=== PATIENT | male | born 1955 | race African-American/Black ===

== ENCOUNTER 2016-10-25 19:35 | Inpatient (IN) | payer MEDICAID, OTHER ==
[~2016-10-25] VITALS: Ht 180.3 cm; Wt 99.8 kg
[2016-10-25 19:46] VITALS: BP 239/179
[2016-10-25] MEDS ORDERED: LORazepam Inj 2mg/ml 1ml ONE (19:55)
[2016-10-25 20:03] VITALS: BP 160/91
[2016-10-25] MEDS ORDERED: LORazepam Inj 2mg/ml 1ml IV ONE (20:15)
[2016-10-25 20:20] LABS: EOSINOPHILS % (AUTO) 3.1 % (0.0-3.0); LYMPHOCYTES % (AUTO) 15.4 % (20.0-45.0); MEAN CORPUSCULAR HEMOGLOBIN 35.4 PG (27.0-31.0); MEAN CORPUSCULAR HGB CONC 32.2 G/DL (32.0-36.0); MEAN CORPUSCULAR VOLUME 110 FL (80-99); MEAN PLATELET VOLUME 9.7 FL (6.5-10.1); MONOCYTES % (AUTO) 5.8 % (1.0-10.0); NEUTROPHILS % (AUTO) 74.9 % (45.0-75.0); PLATELET COUNT 130 K/UL (150-450); RED BLOOD COUNT 3.12 M/UL (4.70-6.10); RED CELL DISTRIBUTION WIDTH 11.9 % (11.6-14.8); WHITE BLOOD COUNT 9.1 K/UL (4.8-10.8)
[2016-10-25] MEDS ORDERED: levETIRAcetam 500mg vial IV ONE (20:30)
[2016-10-25 20:39] LABS: TROPONIN I < 0.30 ng/mL (<=0.30)
[2016-10-25 20:44] LABS: ALANINE AMINOTRANSFERASE 19 U/L (3-41); ALBUMIN/GLOBULIN RATIO 0.8 (1.0-2.7); ANION GAP 14 (5-15); ASPARTATE AMINO TRANSFERASE 50 U/L (5-40); CALCIUM 8.2 mg/dL (8.6-10.2); CARBON DIOXIDE 26 mEQ/L (20-30); CHLORIDE 100 mEQ/L (98-107); CREATININE 0.8 mg/dL (0.7-1.2); GLOMERULAR FILTRATION RATE > 60 mL/min (>60); HEMOLYSIS 42; POTASSIUM 3.9 mEQ/L (3.4-4.9); SODIUM 140 mEQ/L (135-145); TOTAL PROTEIN 5.8 g/dL (6.6-8.7)
[2016-10-25 20:45] VITALS: BP 143/87
[2016-10-25 20:49] LABS: CKMB 1.6 ng/mL (< 6.7)
[2016-10-25] MEDS ORDERED: levETIRAcetam 1,000 MG in D5W 110 ML IVPB SCH (21:00)
[2016-10-25 21:34] VITALS: BP 122/82
[2016-10-25 23:52] VITALS: BP 121/74
[2016-10-26] VITALS (7 sets, daily range): BP systolic 99–126; BP diastolic 64–78
[2016-10-26] MEDS ORDERED: CYCLOBENZAPRINE10 MG ORAL (05:42)
[2016-10-26] MEDS ORDERED: PRO-AMATINE5 M1 GT (05:42)
[2016-10-26] MEDS ORDERED: LAMICTAL150 MG ORAL (05:42)
[2016-10-26] MEDS ORDERED: THIAMINE H100 MG/1 M IJ (05:42)
[2016-10-26] MEDS ORDERED: COUMADIN5 MG ORAL (05:42)
[2016-10-26] MEDS ORDERED: LACTULOSE20 GM/301 GT (05:42)
[2016-10-26] MEDS ORDERED: FOLIC ACID1 MG ORAL (05:42)
[2016-10-26] MEDS ORDERED: TYLENOL650 MG/20. ORAL (05:42)
[2016-10-26] MEDS ORDERED: KEPPRA1000 MG ORAL (05:42)
[2016-10-26] MEDS ORDERED: MULTIVITAMINS1 EAC8 ORAL (05:42)
[2016-10-26] MEDS ORDERED: VALIUM10 MG ORAL (05:42)
[2016-10-26] MEDS ORDERED: TEGRETOL200 MG PO (05:42)
[2016-10-26] MEDS ORDERED: Acetaminophen 650mg/20.3ml ORAL PRN (06:00)
[2016-10-26 08:37] LABS: INR 1.6 (0.9-1.1); PROTHROMBIN TIME 16.1 SEC (9.30-11.50)
[2016-10-26 08:57] LABS: ANION GAP 14 (5-15); CALCIUM 8.6 mg/dL (8.6-10.2); CARBON DIOXIDE 27 mEQ/L (20-30); CHLORIDE 97 mEQ/L (98-107); CREATININE 0.7 mg/dL (0.7-1.2); GLOMERULAR FILTRATION RATE > 60 mL/min (>60); HEMOLYSIS 2; POTASSIUM 3.2 mEQ/L (3.4-4.9); SODIUM 138 mEQ/L (135-145)
[2016-10-26] MEDS ORDERED: LaMICtal 150mg tab ORAL SCH (09:00)
[2016-10-26] MEDS ORDERED: levETIRAcetam 500mg/5ml Liquid GT SCH (09:00)
[2016-10-26] MEDS ORDERED: Cyclobenzaprine 10mg Tab ORAL SCH (09:00)
[2016-10-26] MEDS: Lactulose 20gm/30ml UDC GT SCH (09:37)
[2016-10-26] MEDS: Multivitamin 5ml Liquid GT SCH (09:37)
[2016-10-26] MEDS: Pantoprazole Inj IVP SCH (09:39)
[2016-10-26] MEDS: carBAMazepine 200mg tab GT SCH ×2 (09:40→18:34)
--- NOTE | 2016-10-26 10:38 | History & Physical ---
History and Physical History & Physicial 61 year old male with protracted hospital course. Care discussed with daughter in detail. Patient was admitted to [facility] with swelling and has DVT leg and arm He hhad ongoing seizures and persistent overall and difficult to control at [facility]; Patient had code blue and required intubation; He required airway protection. Family decided to place GT and trach he was in ICU for prolonged period of time and failed to improve. Daughter notes the seizure were eventually controlled Patient was noted to have PMH trach GT encephalopathy DVT seizures throat cancer and underwent chemo and XRT (concern for recurrence) MEDS/ALLERGIES reviewed SOCIAL at [facility]; prior at [facility] has family support was heavy smoker and drinker cocaine user PHYSICAL EXAM WDWN ill appearing clear breath sounds bilaterally without rhonchi or wheeze [id number] without MRG NABS nontender no HSM no CC anasarca nonfocal reduced LOC Laboratory Tests Test 10/25/16 19:50 10/26/16 07:00 White Blood Count 9.1 K/UL (4.8-10.8) Pending Red Blood Count 3.12 M/UL (4.70-6.10) L Pending Hemoglobin 11.0 G/DL (14.2-18.0) L Pending Hematocrit 34.3 % (42.0-52.0) L Pending Mean Corpuscular Volume 110 FL (80-99) H Pending Mean Corpuscular Hemoglobin 35.4 PG (27.0-31.0) H Pending Mean Corpuscular Hemoglobin Concent 32.2 G/DL (32.0-36.0) Pending Red Cell Distribution Width 11.9 % (11.6-14.8) Pending Platelet Count 130 K/UL (150-450) L Pending Mean Platelet Volume 9.7 FL (6.5-10.1) Pending Neutrophils (%) (Auto) 74.9 % (45.0-75.0) Pending Lymphocytes (%) (Auto) 15.4 % (20.0-45.0) L Pending Monocytes (%) (Auto) 5.8 % (1.0-10.0) Pending Eosinophils (%) (Auto) 3.1 % (0.0-3.0) H Pending Basophils (%) (Auto) 1.0 % (0.0-2.0) Pending Sodium Level 140 mEQ/L (135-145) 138 mEQ/L (135-145) Potassium Level 3.9 mEQ/L (3.4-4.9) 3.2 mEQ/L (3.4-4.9) L Chloride Level 100 mEQ/L (98-107) 97 mEQ/L (98-107) L Carbon Dioxide Level 26 mEQ/L (20-30) 27 mEQ/L (20-30) Anion Gap 14 (5-15) 14 (5-15) Blood Urea Nitrogen 5 mg/dL (7-23) L 5 mg/dL (7-23) L Creatinine 0.8 mg/dL (0.7-1.2) 0.7 mg/dL (0.7-1.2) Estimat Glomerular Filtration Rate > 60 mL/min (>60) > 60 mL/min (>60) Glucose Level 88 mg/dL (74-106) 75 mg/dL (74-106) Calcium Level 8.2 mg/dL (8.6-10.2) L 8.6 mg/dL (8.6-10.2) Total Bilirubin 0.9 mg/dL (0.0-1.2) Aspartate Amino Transf (AST/SGOT) 50 U/L (5-40) H Alanine Aminotransferase (ALT/SGPT) 19 U/L (3-41) Alkaline Phosphatase 103 U/L (40-129) Total Creatine Kinase 83 U/L (38-174) Creatine Kinase MB 1.6 ng/mL (< 6.7) Creatine Kinase MB Relative Index 1.9 Troponin I < 0.30 ng/mL (<=0.30) Total Protein 5.8 g/dL (6.6-8.7) L Albumin 2.6 g/dL (3.5-5.2) L Globulin 3.2 g/dL Albumin/Globulin Ratio 0.8 (1.0-2.7) L Prothrombin Time 16.1 SEC (9.30-11.50) H Prothromb Time International Ratio 1.6 (0.9-1.1) H IMPRESSION seizures ALOC DVT history of throat cancer PLAN Neuro EEG coumadin follow up labs impression, plan, and exam edited and reviewed in detail care discussed with EUSEBIO CULVER Oct 26, 2016 10:38
[2016-10-26 10:51] LABS: BASOPHILS % (AUTO) 0.8 % (0.0-2.0); EOSINOPHILS % (AUTO) 3.7 % (0.0-3.0); LYMPHOCYTES % (AUTO) 18.1 % (20.0-45.0); MEAN CORPUSCULAR HEMOGLOBIN 36.3 PG (27.0-31.0); MEAN CORPUSCULAR HGB CONC 33.3 G/DL (32.0-36.0); MEAN CORPUSCULAR VOLUME 109 FL (80-99); MEAN PLATELET VOLUME 9.9 FL (6.5-10.1); NEUTROPHILS % (AUTO) 70.5 % (45.0-75.0); PLATELET COUNT 129 K/UL (150-450); RED BLOOD COUNT 2.94 M/UL (4.70-6.10); RED CELL DISTRIBUTION WIDTH 11.7 % (11.6-14.8); WHITE BLOOD COUNT 8.6 K/UL (4.8-10.8)
--- NOTE | 2016-10-26 11:58 | Diagnostic Imaging Report ---
Indication: CP, shortness of breath Technique: One view of the chest Comparison: 08/09/2010 Findings: Inspiration is suboptimal. No definite acute infiltrates, effusions, congestion. The heart size is borderline enlarged. Tracheostomy now present. Previously demonstrated PICC is no longer evident Impression: No definite acute process. Findings as noted
[2016-10-26] MEDS ORDERED: KCl 10% 20 mEq/15ml liquid NG ONE (12:30)
[2016-10-26] MEDS ORDERED: Warfarin Sodium 5mg ORAL SCH (17:00)
[2016-10-26] MEDS ORDERED: Warfarin Sodium 7.5mg ORAL ONE (17:00)
--- NOTE | 2016-10-26 18:10 | Neurology Progress Note ---
Objective Physical Exam Last Vital Signs Date Time Temp Pulse Resp B/P Pulse Ox O2 Delivery O2 Flow Rate FiO2 10/26/16 16:50 95 18 50 10/26/16 15:59 97.7 99/66 100 Mechanical Ventilator Laboratory Tests Test 10/25/16 19:50 10/26/16 07:00 10/26/16 12:07 White Blood Count 9.1 K/UL (4.8-10.8) 8.6 K/UL (4.8-10.8) Red Blood Count 3.12 M/UL (4.70-6.10) L 2.94 M/UL (4.70-6.10) L Hemoglobin 11.0 G/DL (14.2-18.0) L 10.7 G/DL (14.2-18.0) L Hematocrit 34.3 % (42.0-52.0) L 32.0 % (42.0-52.0) L Mean Corpuscular Volume 110 FL (80-99) H 109 FL (80-99) H Mean Corpuscular Hemoglobin 35.4 PG (27.0-31.0) H 36.3 PG (27.0-31.0) H Mean Corpuscular Hemoglobin Concent 32.2 G/DL (32.0-36.0) 33.3 G/DL (32.0-36.0) Red Cell Distribution Width 11.9 % (11.6-14.8) 11.7 % (11.6-14.8) Platelet Count 130 K/UL (150-450) L 129 K/UL (150-450) L Mean Platelet Volume 9.7 FL (6.5-10.1) 9.9 FL (6.5-10.1) Neutrophils (%) (Auto) 74.9 % (45.0-75.0) 70.5 % (45.0-75.0) Lymphocytes (%) (Auto) 15.4 % (20.0-45.0) L 18.1 % (20.0-45.0) L Monocytes (%) (Auto) 5.8 % (1.0-10.0) 7.0 % (1.0-10.0) Eosinophils (%) (Auto) 3.1 % (0.0-3.0) H 3.7 % (0.0-3.0) H Basophils (%) (Auto) 1.0 % (0.0-2.0) 0.8 % (0.0-2.0) Sodium Level 140 mEQ/L (135-145) 138 mEQ/L (135-145) Potassium Level 3.9 mEQ/L (3.4-4.9) 3.2 mEQ/L (3.4-4.9) L Chloride Level 100 mEQ/L (98-107) 97 mEQ/L (98-107) L Carbon Dioxide Level 26 mEQ/L (20-30) 27 mEQ/L (20-30) Anion Gap 14 (5-15) 14 (5-15) Blood Urea Nitrogen 5 mg/dL (7-23) L 5 mg/dL (7-23) L Creatinine 0.8 mg/dL (0.7-1.2) 0.7 mg/dL (0.7-1.2) Estimat Glomerular Filtration Rate > 60 mL/min (>60) > 60 mL/min (>60) Glucose Level 88 mg/dL (74-106) 75 mg/dL (74-106) Calcium Level 8.2 mg/dL (8.6-10.2) L 8.6 mg/dL (8.6-10.2) Total Bilirubin 0.9 mg/dL (0.0-1.2) Aspartate Amino Transf (AST/SGOT) 50 U/L (5-40) H Alanine Aminotransferase (ALT/SGPT) 19 U/L (3-41) Alkaline Phosphatase 103 U/L (40-129) Total Creatine Kinase 83 U/L (38-174) Creatine Kinase MB 1.6 ng/mL (< 6.7) Creatine Kinase MB Relative Index 1.9 Troponin I < 0.30 ng/mL (<=0.30) Total Protein 5.8 g/dL (6.6-8.7) L Albumin 2.6 g/dL (3.5-5.2) L Globulin 3.2 g/dL Albumin/Globulin Ratio 0.8 (1.0-2.7) L Prothrombin Time 16.1 SEC (9.30-11.50) H Prothromb Time International Ratio 1.6 (0.9-1.1) H Carbamazepine (Tegretol) Level 6.0 ug/mL (4.0-12.0) Levetiracetam (Keppra) Level Pending Impression/Recommendations Problems: (1) 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
[2016-10-26] MEDS: LaMICtal 150mg tab ORAL SCH (18:34)
[2016-10-26] MEDS: levETIRAcetam 500mg/5ml Liquid GT SCH (18:36)
--- NOTE | 2016-10-26 22:15 | Wound Care Consultation ---
Wound Assessment Wound Assessment #1: Wound Present on Admission: Yes New Wound: No Status Change of Wound: No Wound Location Body Site Modif: left Wound Location Body Site: buttocks Wound Type: pressure ulcer Martin Test: Does not Martin Pressure Ulcer Stage: III Wound Thickness: Full Thickness Wound Length: 4.5 Wound Width: 2.5 Wound Depth: utd Percent of Wound Lebam/Red: 100 Wound Drainage Description: Serosanguineous Wound Drainage Amount: Scant Wound Drainage Odor: None/Absent Tissue Surrounding Wound: Erythemic Wound General Appearance: Reddened Wound Assessment #2: Wound Number: #2 Wound Present on Admission: Yes New Wound: No Status Change of Wound: No Wound Location Body Site Modif: left, upper Wound Location Body Site: arm Wound Type: scab Martin Test: Does not Martin Wound Thickness: Full Thickness Wound Length: 2.0 Wound Width: 2.0 Wound Depth: utd Wound Drainage Amount: None Wound Drainage Odor: None/Absent Tissue Surrounding Wound: Intact Wound General Appearance: Asymptomatic Wound Comment #1 Left buttock stage III pressure ulcer #2 Left upper arm dry scab Recommendation -Keep clean and dry -Turn and reposition -Left buttock pressure ulcer Cleanse with saline pat dry apply Triad cream cover with bordered gauze daily and PRN soiled/dislodged -Optimize nutrition -Low air loss overlay mattress -Offload both heels -Assess and f/u accordingly for any changes KELECHI IGNACIO RN Oct 26, 2016 22:15
[2016-10-27] VITALS: BP 99/47
[2016-10-27] MEDS: LORazepam Inj 2mg/ml 1ml IV PRN (00:46)
--- NOTE | 2016-10-27 01:28 | Consultation ---
DATE OF CONSULTATION: 10/26/2016 NEUROLOGICAL CONSULTATION: REQUESTING PHYSICIAN: Gerber Shelton M.D. HISTORY OF PRESENT ILLNESS: The patient is a 61-year-old man seen in neurological consultation to evaluate the status epilepticus. The patient unable to provide with a history. This was compiled from medical records. Now that the patient who was [facility] with recuperating from event ____ while he was in [facility]. Apparently, the patient had a DVT of his upper and lower extremity. He developed Code Blue, which required intubation for airway protection. He developed ongoing seizure activity, which were not controlled well. After prolonged treatment while in the ICU setting, there was no signs of improvement, but according to the family, seizures were eventually controlled. The patient was placed on gastric tube, tracheostomy the nursing facility post ablation. The patient was admitted for exacerbation of seizure activity. PAST MEDICAL HISTORY: The patient has a history of throat cancer, for which he had radiation therapy and chemotherapy with for recurrence of tumor. History of seizure disorder and history of DVT. MEDICATIONS: The patient's current treatment included carbamazepine 200 mg t.i.d., Flexeril 5 mg t.i.d., Valium 10 mg t.i.d. p.r.n., folate, lactulose, Lamictal 150 mg daily, Keppra 1000 mg daily, midodrine, multivitamin, thiamine 100 mg daily, warfarin 5 mg daily, and Tylenol as needed. ALLERGIES: Codeine. SOCIAL HISTORY: The patient had been a heavy smoker and has a history of substance abuse including alcohol and cocaine. FAMILY HISTORY: Unavailable. REVIEW OF SYMPTOMS: Unable to obtain due to the patient's status. PHYSICAL EXAMINATION: GENERAL: This is a well-developed and well-nourished man with a tracheostomy, G-tube in place, and IV in place. The patient noted to have intermittent brief jerks involving predominantly left upper extremity. VITAL SIGNS: Blood pressure 99/66, temperature 97.7 degrees, and pulse oximetry 100% on mechanical ventilator. HEENT: Head normocephalic. There is no evidence of trauma. Eyes, ears, and throat are clear. NECK: Supple. No meningeal signs. MUSCULOSKELETAL: No deformities. There is a 2+ puffiness in the both hands and feet. PERIPHERAL PULSES: A 1+ symmetric. MENTAL STATUS: No response to verbal stimulation on sternal rub. Appears withdrawing with the right arm. There is slight diffuse rigidity in all extremities. Deep reflexes depressed bilaterally. Plantar response is mute. SENSORY EXAMINATION: No response to pin stimulation. LABORATORY AND DIAGNOSTIC DATA: Lab work on admission include carbamazepine level of 6.0. Chemistry panel unremarkable except calcium 8.2. AST 50. Normal troponin. Coagulation panel with INR 1.3. CBC study with hemoglobin 11.2 and hematocrit 34.3. Imaging studies included a chest x-ray revealing no definitive acute process, previously demonstrated PICC line was no longer evident. IMPRESSION: 1. Status post full arrest with anoxic encephalopathy, now presenting with intractable status epilepticus. 2. History of substance abuse. 3. Respiratory insufficiency. 4. History of throat cancer status post chemotherapy. 5. Deep venous thrombosis. RECOMMENDATION: 1. Stat CT of the brain without contrast if hemodynamically stable. 2. Get an EEG. 3. Adjust treatment to maximise Lamictal 200 mg b.i.d., Keppra 1500 mg b.i.d., maintain on current dose of carbamazepine, and Ativan 1 mg q.1 hour p.r.n. for breakthrough seizure activity. We will follow with you. Thank you for allowing me to see this interesting patient in neurological consultation. Christopher Gayle M.D. DR: Gita JOB#: [id number] CC:
[2016-10-27 04:00] VITALS: BP 118/85
[2016-10-27 06:35] LABS: INR 1.7 (0.9-1.1); PROTHROMBIN TIME 17.3 SEC (9.30-11.50)
[2016-10-27 08:00] VITALS: BP 115/68
--- NOTE | 2016-10-27 08:22 | Emergency Room Report ---
History of Present Illness General Chief Complaint: Seizure Source: Family Member, Medical Record Present Illness HPI Patient presents from nursing facility with complaints of seizure activity Patient has had a fairly extended complicated hospital stay recently at [facility] patient was recently transferred to the nursing facility Family and provides significant input along with medical history from the medical records Patient previously had alcohol disease Possible seizure activity secondary to that Patient also had developed right-sided DVTs, and during the hospital stay had respiratory failure which required tracheostomy Patient is on given medications including Keppra for seizures Patient had been seizure free for the last several days Today was noted to have possible shaking and seizure activity And paramedics were summoned for further care Allergies: Coded Allergies: CODEINE (Verified Allergy, Unknown, 10/25/16) Patient History Limited by: medical condition Past Medical History: see triage record Pertinent Family History: unable to obtain Reviewed Nursing Documentation: PMH: Agreed, PSxH: Agreed Nursing Documentation-PMH Past Medical History: No History, Except For Hx Cardiac Problems: Yes Hx Hypertension: Yes Hx Cancer: Yes Hx Gastrointestinal Problems: No Hx Neurological Problems: Yes Hx Seizures: Yes Review of Systems All Other Systems: limited - Other than the ones mentioned in the history of present illness all others are reviewed however they do stay limited due to the patient's mental status Physical Exam Vital Signs Date Time Temp Pulse Resp B/P Pulse Ox O2 Delivery O2 Flow Rate FiO2 10/25/16 19:36 100 16 239/179 99 Mechanical Ventilator 10/25/16 19:46 60 10/25/16 19:46 99.1 Sp02 EP Interpretation: reviewed, normal General Appearance: other - Patient shows evidence of what appears to be possible focal seizure, twitching of the right side of the facial area Head: normocephalic, atraumatic Eyes: bilateral eye PERRL ENT: no angioedema Neck: supple, thyroid normal, other - Tracheostomy in place no stridor or leaking Respiratory: lungs clear, normal breath sounds Cardiovascular #1: regular rate, rhythm Gastrointestinal: soft, no mass - Feeding tube in place Musculoskeletal: other - Patient is bedbound chronically debilitated does not follow commands, Neurologic: other - Significantly decreased GCS upon arrival patient also appears to be having a focal seizure, and provided with Ativan, therefore GCS continues to be depressed as well , Skin: no rash Lymphatic: no adenopathy Procedures Critical Care Time Critical Care Time 40 minutes for initial critical presentation requiring acute intervention Intractable seizures requiring multiple neurological evaluations Extended discussion with family Not including any procedural time Medical Decision Making Diagnostic Impression: Primary Impression: Epileptic seizure, generalized ER Course Multiple differentials considered including but not limited to breakthrough seizure, intracranial pathology, neurological or surgical infectious pathology Patient's complex requiring blood work and imaging study Patient upon arrival required Ativan Was also initiated on IV Keppra Patient's seizures appear to be well controlled with this acute intervention Patient received further hydration and admitted for further care, Labs Test 10/25/16 19:50 10/26/16 07:00 10/26/16 12:07 10/27/16 05:15 White Blood Count 9.1 K/UL (4.8-10.8) 8.6 K/UL (4.8-10.8) Red Blood Count 3.12 M/UL (4.70-6.10) 2.94 M/UL (4.70-6.10) Hemoglobin 11.0 G/DL (14.2-18.0) 10.7 G/DL (14.2-18.0) Hematocrit 34.3 % (42.0-52.0) 32.0 % (42.0-52.0) Mean Corpuscular Volume 110 FL (80-99) 109 FL (80-99) Mean Corpuscular Hemoglobin 35.4 PG (27.0-31.0) 36.3 PG (27.0-31.0) Mean Corpuscular Hemoglobin Concent 32.2 G/DL (32.0-36.0) 33.3 G/DL (32.0-36.0) Red Cell Distribution Width 11.9 % (11.6-14.8) 11.7 % (11.6-14.8) Platelet Count 130 K/UL (150-450) 129 K/UL (150-450) Mean Platelet Volume 9.7 FL (6.5-10.1) 9.9 FL (6.5-10.1) Neutrophils (%) (Auto) 74.9 % (45.0-75.0) 70.5 % (45.0-75.0) Lymphocytes (%) (Auto) 15.4 % (20.0-45.0) 18.1 % (20.0-45.0) Monocytes (%) (Auto) 5.8 % (1.0-10.0) 7.0 % (1.0-10.0) Eosinophils (%) (Auto) 3.1 % (0.0-3.0) 3.7 % (0.0-3.0) Basophils (%) (Auto) 1.0 % (0.0-2.0) 0.8 % (0.0-2.0) Sodium Level 140 mEQ/L (135-145) 138 mEQ/L (135-145) Potassium Level 3.9 mEQ/L (3.4-4.9) 3.2 mEQ/L (3.4-4.9) Chloride Level 100 mEQ/L (98-107) 97 mEQ/L (98-107) Carbon Dioxide Level 26 mEQ/L (20-30) 27 mEQ/L (20-30) Anion Gap 14 (5-15) 14 (5-15) Blood Urea Nitrogen 5 mg/dL (7-23) 5 mg/dL (7-23) Creatinine 0.8 mg/dL (0.7-1.2) 0.7 mg/dL (0.7-1.2) Estimat Glomerular Filtration Rate > 60 mL/min (>60) > 60 mL/min (>60) Glucose Level 88 mg/dL (74-106) 75 mg/dL (74-106) Calcium Level 8.2 mg/dL (8.6-10.2) 8.6 mg/dL (8.6-10.2) Total Bilirubin 0.9 mg/dL (0.0-1.2) Aspartate Amino Transf (AST/SGOT) 50 U/L (5-40) Alanine Aminotransferase (ALT/SGPT) 19 U/L (3-41) Alkaline Phosphatase 103 U/L (40-129) Total Creatine Kinase 83 U/L (38-174) Creatine Kinase MB 1.6 ng/mL (< 6.7) Creatine Kinase MB Relative Index 1.9 Troponin I < 0.30 ng/mL (<=0.30) Total Protein 5.8 g/dL (6.6-8.7) Albumin 2.6 g/dL (3.5-5.2) Globulin 3.2 g/dL Albumin/Globulin Ratio 0.8 (1.0-2.7) Prothrombin Time 16.1 SEC (9.30-11.50) 17.3 SEC (9.30-11.50) Prothromb Time International Ratio 1.6 (0.9-1.1) 1.7 (0.9-1.1) Carbamazepine (Tegretol) Level 6.0 ug/mL (4.0-12.0) Rhythm Strip Diag. Results EP Interpretation: yes Rate: 88 Rhythm: NSR, no PVC's, no ectopy Chest X-Ray Diagnostic Results EP Interpretation: Yes Findings: no consolidation, no effusion, no pneumothorax, other - cardiomegaly Number of Views: 1 Last Vital Signs Date Time Temp Pulse Resp B/P Pulse Ox O2 Delivery O2 Flow Rate FiO2 10/27/16 07:14 71 16 30 10/27/16 04:00 98.1 118/85 99 Mechanical Ventilator Status: improved Disposition: ADMITTED INPATIENT Condition: Serious Referrals: EUSEBIO CRESPO (PCP) MARJORIE MENEZES D.O. Oct 27, 2016 08:22
[2016-10-27] MEDS: Lactulose 20gm/30ml UDC GT SCH (08:50)
[2016-10-27] MEDS: carBAMazepine 200mg tab GT SCH ×2 (08:51→18:07)
[2016-10-27] MEDS: Multivitamin 5ml Liquid GT SCH (08:51)
[2016-10-27] MEDS: levETIRAcetam 500mg/5ml Liquid GT SCH ×2 (08:51→18:08)
[2016-10-27] MEDS: LaMICtal 150mg tab ORAL SCH ×2 (08:51→18:07)
[2016-10-27] MEDS: Pantoprazole Inj IVP SCH (08:52)
--- NOTE | 2016-10-27 09:34 | Pulmonology Progress Note ---
Assessment/Plan Assessment/Plan IMPRESSION seizures ALOC DVT history of throat cancer PLAN Neuro EEG coumadin adjustment per pharmacy monitor INR and labs follow up labs Head Ct none acute impression, plan, and exam edited and reviewed in detail care discussed with RN Subjective Allergies: Coded Allergies: CODEINE (Verified Allergy, Unknown, 10/25/16) Subjective care noted and reviewed neuro appreciated Objective Last 24 Hour Vital Signs Date Time Temp Pulse Resp B/P Pulse Ox O2 Delivery O2 Flow Rate FiO2 10/27/16 09:15 73 16 30 10/27/16 07:14 71 16 30 10/27/16 05:02 82 16 40 10/27/16 04:00 98.1 78 16 118/85 99 Mechanical Ventilator 40 10/27/16 04:00 40 10/27/16 04:00 68 10/27/16 03:26 65 16 40 10/27/16 01:29 78 21 40 10/27/16 00:00 76 10/27/16 00:00 97.9 74 16 99/47 99 Mechanical Ventilator 40 10/26/16 22:38 82 16 40 10/26/16 21:17 75 20 40 10/26/16 20:00 69 10/26/16 20:00 97.9 75 20 109/64 100 Mechanical Ventilator 50 10/26/16 19:21 74 17 40 10/26/16 16:50 95 18 50 10/26/16 16:00 80 10/26/16 15:59 97.7 74 20 99/66 100 Mechanical Ventilator 50 10/26/16 14:44 89 16 50 10/26/16 13:00 99 20 50 10/26/16 12:00 69 10/26/16 12:00 98.1 70 16 100/65 100 Mechanical Ventilator 50 10/26/16 10:40 95 18 50 10/26/16 10:38 98.4 Intake and Output 10/26/16 10/27/16 19:00 07:00 Intake Total 260 ml 775 ml Output Total 1300 ml 400 ml Balance -1040 ml 375 ml Intake Free Water 100 ml 200 ml Tube Feeding 160 ml 575 ml Output Urine Total 1300 ml 400 ml # Bowel Movements 2 Objective WDWN ill appearing clear breath sounds bilaterally without rhonchi or wheeze [id number] without MRG NABS nontender no HSM no CC anasarca nonfocal reduced LOC Microbiology Date/Time Source Procedure Growth Status 3/17/17 03:30 Stool Clostridium difficile Toxin Assay - Final Complete 10/26/16 03:30 Sacral Abscess Gram Stain - Final Resulted 10/26/16 03:30 Wound Culture - Preliminary Strep Species, Alpha Hemolytic Resulted 10/25/16 23:24 Rectum VRE Culture - Final NO VANCOMYCIN RESISTANT ENTEROCOCCUS ... Complete Laboratory Tests 10/26/16 12:07: Levetiracetam (Keppra) Level [Pending] 10/27/16 05:15: Prothrombin Time 17.3H, Prothromb Time International Ratio 1.7H Current Medications Medications (Trade) Dose Ordered Sig/Romelia Route PRN Reason Start Time Stop Time Status Last Admin Dose Admin Acetaminophen (Tylenol) 650 mg Q6H PRN ORAL Prn Headache/Temp > 101 10/26/16 06:00 11/25/16 05:59 Carbamazepine (TEGretol) 200 mg BID GT 10/26/16 09:00 11/25/16 08:59 10/27/16 08:51 Dextrose (Dextrose 50%) STAT PRN IV Hypoglycemia 10/26/16 05:00 11/25/16 04:59 Folic Acid (Folate) 1 mg DAILY ORAL 10/26/16 09:00 11/25/16 08:59 10/27/16 08:51 Lactulose (Cephulac) 20 gm DAILY GT 10/26/16 09:00 11/25/16 08:59 10/27/16 08:50 Lamotrigine (LaMICtal) 150 mg BID ORAL 10/26/16 18:00 11/25/16 17:59 10/27/16 08:51 Levetiracetam (Keppra) 1,500 mg BID GT 10/26/16 18:00 11/25/16 17:59 10/27/16 08:51 Lorazepam (Ativan 2mg/ml 1ml) 1 mg Q1HR PRN IV For Seizures 10/26/16 07:00 11/02/16 06:59 10/27/16 00:46 Multivitamins (Multivitamin Hexavitamin) 5 ml DAILY GT 10/26/16 09:00 11/25/16 08:59 10/27/16 08:51 Pantoprazole (Protonix) 40 mg DAILY IVP 10/26/16 09:00 11/25/16 08:59 10/27/16 08:52 Warfarin Sodium (Coumadin per pharmacy) 1 ea DAILY PRN MISC Per rx protocol 10/26/16 11:15 11/25/16 11:14 EUSEBIO CRESPO Oct 27, 2016 09:34
[2016-10-27 12:00] VITALS: BP 120/78
[2016-10-27 16:00] VITALS: BP 121/88
--- NOTE | 2016-10-27 16:14 | Neurology Progress Note ---
Interim History Interim History ROS Limited/Unobtainable: Yes Complaints: unresponsive Events: no sz noted Review of Systems Neuro Review of Systems EEG with L PLEDS Objective Physical Exam Last Vital Signs Date Time Temp Pulse Resp B/P Pulse Ox O2 Delivery O2 Flow Rate FiO2 10/27/16 15:08 47 16 30 10/27/16 12:00 98.1 120/78 99 Mechanical Ventilator Laboratory Tests Test 10/27/16 05:15 Prothrombin Time 17.3 SEC (9.30-11.50) H Prothromb Time International Ratio 1.7 (0.9-1.1) H General: other - trach Head: other Neck: other Neurologic Exam Mental Status: other - on stimuly open eyes follows x1-2 commands Speech: other Language: other Cranial Nerve II: fundus normal Cranial Nerves III, IV, : PERRLA, EOMI, pupils Cranial Nerve V: masseters function normal Cranial Nerve VII: normal facial expressions Cranial Nerve VIII: no nystagmus Cranial Nerve IX: gag response, other - poor gag Cranial Nerve XII: no tongue atrophy/fasciculations Motor System: other - flaccid L side Sensory: other Coordination: other Deep Tendon Reflexes: 0 ankle (L), 0 ankle (R), 0 bicep (L), 0 bicep (R), 0 brachioradialis (L), 0 brachioradialis (R), 0 knee (L), 0 knee (R), 0 tricep (L) , 0 tricep (R) Impression/Recommendations Problems: (1) 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
[2016-10-27] MEDS: Warfarin Sodium 5mg ORAL SCH (18:03)
[2016-10-27 20:00] VITALS: BP 109/69
[2016-10-28] VITALS: BP 130/91
[2016-10-28 04:00] VITALS: BP 127/80
[2016-10-28] MEDS: LORazepam Inj 2mg/ml 1ml IV PRN (06:52)
[2016-10-28 08:00] VITALS: BP 124/78
[2016-10-28] MEDS: LaMICtal 150mg tab ORAL SCH ×2 (08:16→18:56)
[2016-10-28] MEDS: carBAMazepine 200mg tab GT SCH ×2 (08:16→18:56)
[2016-10-28] MEDS: Lactulose 20gm/30ml UDC GT SCH (08:16)
[2016-10-28] MEDS: Multivitamin 5ml Liquid GT SCH (08:16)
[2016-10-28] MEDS: Pantoprazole Inj IVP SCH (08:17)
[2016-10-28] MEDS: levETIRAcetam 500mg/5ml Liquid GT SCH ×2 (08:17→18:56)
--- NOTE | 2016-10-28 08:50 | Pulmonology Progress Note ---
Assessment/Plan Assessment/Plan IMPRESSION seizures ALOC DVT history of throat cancer PLAN Neuro EEG pending coumadin adjustment per pharmacy monitor INR and labs follow up labs Head Ct none acute further neuro input and dc planning impression, plan, and exam edited and reviewed in detail care discussed with RN Subjective ROS Limited/Unobtainable: Yes Allergies: Coded Allergies: CODEINE (Verified Allergy, Unknown, 10/25/16) Subjective care noted and reviewed neuro appreciated updated daughter Objective Last 24 Hour Vital Signs Date Time Temp Pulse Resp B/P Pulse Ox O2 Delivery O2 Flow Rate FiO2 10/28/16 07:08 81 18 30 10/28/16 04:48 89 24 30 10/28/16 04:00 97.9 83 19 127/80 100 Mechanical Ventilator 30 10/28/16 04:00 84 10/28/16 04:00 30 10/28/16 02:52 75 16 30 10/28/16 00:42 81 19 30 10/28/16 00:00 77 10/28/16 00:00 97.7 80 19 130/91 99 Mechanical Ventilator 30 10/28/16 00:00 40 10/27/16 22:53 74 19 30 10/27/16 21:07 83 20 30 10/27/16 20:00 97.3 69 16 109/69 100 Mechanical Ventilator 30 10/27/16 20:00 83 10/27/16 19:50 74 16 30 10/27/16 17:11 70 17 30 10/27/16 16:00 97.7 76 16 121/88 100 Mechanical Ventilator 30 10/27/16 16:00 79 10/27/16 15:08 67 16 30 10/27/16 12:56 69 16 30 10/27/16 12:00 98.1 71 16 120/78 99 Mechanical Ventilator 30 10/27/16 12:00 71 10/27/16 10:46 69 16 30 10/27/16 09:15 73 16 30 Intake and Output 10/27/16 10/28/16 19:00 07:00 Intake Total 865 ml 915 ml Output Total 675 ml Balance 865 ml 240 ml Intake Free Water 220 ml 200 ml Tube Feeding 585 ml 715 ml Other 60 ml Output Urine Total 675 ml Objective WDWN ill appearing clear breath sounds bilaterally without rhonchi or wheeze [id number] without MRG NABS nontender no HSM no CC anasarca nonfocal reduced LOC but seems near baseline based on family Microbiology Date/Time Source Procedure Growth Status 10/25/16 23:24 Nasal Nares MRSA Culture - Final NO METHICILLIN RESISTANT STAPH AUREUS... Complete 10/26/16 03:30 Stool Clostridium difficile Toxin Assay - Final Complete 10/26/16 03:30 Sacral Abscess Gram Stain - Final Resulted 10/26/16 03:30 Wound Culture - Preliminary Strep Species, Alpha Hemolytic Resulted 10/25/16 23:24 Rectum VRE Culture - Final NO VANCOMYCIN RESISTANT ENTEROCOCCUS ... Complete 10/25/16 19:50 Arm Right Blood Culture - Preliminary NO GROWTH AFTER 48 HOURS Resulted 10/25/16 19:45 Arm Left Blood Culture - Preliminary NO GROWTH AFTER 48 HOURS Resulted Current Medications Medications (Trade) Dose Ordered Sig/Romelia Route PRN Reason Start Time Stop Time Status Last Admin Dose Admin Acetaminophen (Tylenol) 650 mg Q6H PRN ORAL Prn Headache/Temp > 101 10/26/16 06:00 11/25/16 05:59 Carbamazepine (TEGretol) 200 mg BID GT 10/26/16 09:00 11/25/16 08:59 10/28/16 08:16 Dextrose (Dextrose 50%) STAT PRN IV Hypoglycemia 10/26/16 05:00 11/25/16 04:59 Folic Acid (Folate) 1 mg DAILY ORAL 10/26/16 09:00 11/25/16 08:59 10/28/16 08:16 Lactulose (Cephulac) 20 gm DAILY GT 10/26/16 09:00 11/25/16 08:59 10/28/16 08:16 Lamotrigine (LaMICtal) 150 mg BID ORAL 10/26/16 18:00 11/25/16 17:59 10/28/16 08:16 Levetiracetam (Keppra) 1,500 mg BID GT 10/26/16 18:00 11/25/16 17:59 10/28/16 08:17 Lorazepam (Ativan 2mg/ml 1ml) 1 mg Q1HR PRN IV For Seizures 10/26/16 07:00 11/02/16 06:59 10/28/16 06:52 Multivitamins (Multivitamin Hexavitamin) 5 ml DAILY GT 10/26/16 09:00 11/25/16 08:59 10/28/16 08:16 Pantoprazole (Protonix) 40 mg DAILY IVP 10/26/16 09:00 11/25/16 08:59 10/28/16 08:17 Warfarin Sodium (Coumadin per pharmacy) 1 ea DAILY PRN MISC Per rx protocol 10/26/16 11:15 11/25/16 11:14 Warfarin Sodium (Coumadin) 5 mg COUMADIN ORAL 10/27/16 17:00 11/01/16 16:59 10/27/16 18:03 EUSEBIO CRESPO Oct 28, 2016 08:50
[2016-10-28 09:30] LABS: INR 2.1 (0.9-1.1)
[2016-10-28 12:00] VITALS: BP 122/76
[2016-10-28] MEDS ORDERED: Sterile Water Irrig 1000ml IRRIG ONE (15:17)
[2016-10-28 16:00] VITALS: BP 112/72
[2016-10-28] MEDS: Warfarin Sodium 5mg ORAL SCH (17:00)
[2016-10-28 20:00] VITALS: BP 129/77
[2016-10-29] VITALS: BP 109/51
[2016-10-29] MEDS: LORazepam Inj 2mg/ml 1ml IV PRN (03:56)
[2016-10-29 04:00] VITALS: BP 136/88
[2016-10-29 06:35] LABS: INR 1.9 (0.9-1.1); PROTHROMBIN TIME 19.1 SEC (9.30-11.50)
[2016-10-29 08:00] VITALS: BP 138/94
[2016-10-29] MEDS: Lactulose 20gm/30ml UDC GT SCH (08:17)
[2016-10-29] MEDS: LaMICtal 150mg tab ORAL SCH ×2 (08:18→17:33)
[2016-10-29] MEDS: carBAMazepine 200mg tab GT SCH ×2 (08:18→17:33)
[2016-10-29] MEDS: levETIRAcetam 500mg/5ml Liquid GT SCH ×2 (08:18→17:33)
[2016-10-29] MEDS: Multivitamin 5ml Liquid GT SCH (08:18)
[2016-10-29] MEDS: Pantoprazole Inj IVP SCH (08:19)
--- NOTE | 2016-10-29 08:32 | Pulmonology Progress Note ---
Assessment/Plan Assessment/Plan IMPRESSION seizures ALOC DVT history of throat cancer PLAN Neuro noted EEG pending coumadin adjustment per pharmacy add cipro for sacral findings monitor INR and labs follow up labs Head Ct none acute further neuro input and dc planning hope soon impression, plan, and exam edited and reviewed in detail care discussed with RN Subjective ROS Limited/Unobtainable: Yes Allergies: Coded Allergies: CODEINE (Verified Allergy, Unknown, 10/25/16) Subjective care noted and reviewed neuro appreciated updated daughter opens eyes Objective Last 24 Hour Vital Signs Date Time Temp Pulse Resp B/P Pulse Ox O2 Delivery O2 Flow Rate FiO2 10/29/16 07:29 75 16 30 10/29/16 05:14 88 20 30 10/29/16 04:00 84 10/29/16 04:00 98.2 92 16 136/88 100 Mechanical Ventilator 30 10/29/16 04:00 30 10/29/16 03:44 89 16 30 10/29/16 01:32 89 19 30 10/29/16 00:00 96.6 101 16 109/51 100 Mechanical Ventilator 30 10/29/16 00:00 92 10/29/16 00:00 30 10/28/16 23:41 75 17 30 10/28/16 21:27 78 16 30 10/28/16 20:00 78 10/28/16 20:00 30 10/28/16 20:00 98.2 80 16 129/77 100 Mechanical Ventilator 30 10/28/16 19:25 85 20 30 10/28/16 17:05 88 16 30 10/28/16 16:00 30 10/28/16 16:00 69 10/28/16 16:00 98.2 79 20 112/72 98 Mechanical Ventilator 30 10/28/16 14:58 87 16 30 10/28/16 13:01 89 16 30 10/28/16 12:00 97.9 76 21 122/76 100 Mechanical Ventilator 30 10/28/16 12:00 74 10/28/16 12:00 30 10/28/16 11:26 88 16 30 10/28/16 08:41 86 20 30 Intake and Output 10/28/16 10/29/16 19:00 07:00 Intake Total 820 ml 980 ml Output Total 400 ml 1050 ml Balance 420 ml -70 ml Intake Free Water 200 ml 200 ml Tube Feeding 520 ml 780 ml Other 100 ml Output Urine Total 400 ml 1050 ml # Bowel Movements 2 2 Objective WDWN ill appearing clear breath sounds bilaterally without rhonchi or wheeze [id number] without MRG NABS nontender no HSM no CC anasarca nonfocal reduced LOC but seems near baseline based on family Laboratory Tests 10/28/16 08:40: Prothrombin Time 21.0H, Prothromb Time International Ratio 2.1H 10/29/16 05:15: Prothrombin Time 19.1H, Prothromb Time International Ratio 1.9H Current Medications Medications (Trade) Dose Ordered Sig/Romelia Route PRN Reason Start Time Stop Time Status Last Admin Dose Admin Acetaminophen (Tylenol) 650 mg Q6H PRN ORAL Prn Headache/Temp > 101 10/26/16 06:00 11/25/16 05:59 Carbamazepine (TEGretol) 200 mg BID GT 10/26/16 09:00 11/25/16 08:59 10/29/16 08:18 Dextrose (Dextrose 50%) STAT PRN IV Hypoglycemia 10/26/16 05:00 11/25/16 04:59 Folic Acid (Folate) 1 mg DAILY ORAL 10/26/16 09:00 11/25/16 08:59 10/29/16 08:17 Lactulose (Cephulac) 20 gm DAILY GT 10/26/16 09:00 11/25/16 08:59 10/29/16 08:17 Lamotrigine (LaMICtal) 150 mg BID ORAL 10/26/16 18:00 11/25/16 17:59 10/29/16 08:18 Levetiracetam (Keppra) 1,500 mg BID GT 10/26/16 18:00 11/25/16 17:59 10/29/16 08:18 Lorazepam (Ativan 2mg/ml 1ml) 1 mg Q1HR PRN IV For Seizures 10/26/16 07:00 11/02/16 06:59 10/29/16 03:56 Multivitamins (Multivitamin Hexavitamin) 5 ml DAILY GT 10/26/16 09:00 11/25/16 08:59 10/29/16 08:18 Pantoprazole (Protonix) 40 mg DAILY IVP 10/26/16 09:00 11/25/16 08:59 10/29/16 08:19 Warfarin Sodium (Coumadin per pharmacy) 1 ea DAILY PRN MISC Per rx protocol 10/26/16 11:15 11/25/16 11:14 EUSEBIO CRESPO Oct 29, 2016 08:32
[2016-10-29 08:51] LABS: BASOPHILS % (AUTO) 0.7 % (0.0-2.0); EOSINOPHILS % (AUTO) 2.8 % (0.0-3.0); LYMPHOCYTES % (AUTO) 17.6 % (20.0-45.0); MEAN CORPUSCULAR HEMOGLOBIN 35.8 PG (27.0-31.0); MEAN CORPUSCULAR HGB CONC 33.6 G/DL (32.0-36.0); MEAN CORPUSCULAR VOLUME 107 FL (80-99); MEAN PLATELET VOLUME 10.8 FL (6.5-10.1); MONOCYTES % (AUTO) 9.4 % (1.0-10.0); NEUTROPHILS % (AUTO) 69.6 % (45.0-75.0); PLATELET COUNT 140 K/UL (150-450); RED BLOOD COUNT 2.85 M/UL (4.70-6.10); RED CELL DISTRIBUTION WIDTH 11.4 % (11.6-14.8); WHITE BLOOD COUNT 7.5 K/UL (4.8-10.8)
[2016-10-29 09:09] LABS: ANION GAP 13 (5-15); CALCIUM 8.5 mg/dL (8.6-10.2); CARBON DIOXIDE 27 mEQ/L (20-30); CHLORIDE 97 mEQ/L (98-107); CREATININE 0.6 mg/dL (0.7-1.2); GLOMERULAR FILTRATION RATE > 60 mL/min (>60); HEMOLYSIS 5; POTASSIUM 3.5 mEQ/L (3.4-4.9); SODIUM 137 mEQ/L (135-145)
[2016-10-29 12:00] VITALS: BP 139/96
[2016-10-29] MEDS: Ciprofloxacin 500mg tab ORAL SCH ×2 (13:27→21:29)
[2016-10-29 16:00] VITALS: BP 115/68
[2016-10-29] MEDS ORDERED: Warfarin Sodium 5mg ORAL ONE (17:00)
[2016-10-29 20:00] VITALS: BP 125/61
[2016-10-30] VITALS: BP 132/86
[2016-10-30 04:00] VITALS: BP 127/66
[2016-10-30 06:08] LABS: INR 1.7 (0.9-1.1); PROTHROMBIN TIME 17.9 SEC (9.30-11.50)
[2016-10-30 08:00] VITALS: BP 147/86
[2016-10-30] MEDS: LaMICtal 150mg tab ORAL SCH (09:25)
[2016-10-30] MEDS: carBAMazepine 200mg tab GT SCH (09:25)
[2016-10-30] MEDS: Ciprofloxacin 500mg tab ORAL SCH (09:25)
[2016-10-30] MEDS: Lactulose 20gm/30ml UDC GT SCH (09:25)
[2016-10-30] MEDS: Pantoprazole Inj IVP SCH (09:26)
[2016-10-30] MEDS: levETIRAcetam 500mg/5ml Liquid GT SCH (09:26)
[2016-10-30] MEDS: Multivitamin 5ml Liquid GT SCH (09:28)
--- NOTE | 2016-10-30 11:42 | Cardiology Report ---
APPROVED REPORT EKG Measurement Heart [id number] IN 140P46 [id number] Normal sinus rhythm Normal ECG
--- NOTE | 2016-10-30 11:54 | Pulmonology Progress Note ---
Assessment/Plan Assessment/Plan IMPRESSION seizures ALOC DVT history of throat cancer PLAN Neuro noted EEG noted coumadin adjustment per pharmacy add cipro for sacral findings monitor INR and labs follow up labs Head Ct none acute further neuro input and dc planning today daughter agreeable impression, plan, and exam edited and reviewed in detail care discussed with RN Subjective Allergies: Coded Allergies: CODEINE (Verified Allergy, Unknown, 10/25/16) Subjective care noted and reviewed neuro appreciated updated daughter opens eyes and same Objective Last 24 Hour Vital Signs Date Time Temp Pulse Resp B/P Pulse Ox O2 Delivery O2 Flow Rate FiO2 10/30/16 11:19 66 16 30 10/30/16 08:56 61 16 30 10/30/16 08:00 97.7 71 16 147/86 100 Mechanical Ventilator 30 10/30/16 08:00 67 10/30/16 07:00 79 17 30 10/30/16 04:53 71 16 30 10/30/16 04:13 30 10/30/16 04:00 98.1 82 16 127/66 98 Mechanical Ventilator 30 10/30/16 04:00 68 10/30/16 03:21 77 22 30 10/30/16 01:10 100 19 30 10/30/16 00:00 80 10/30/16 00:00 30 10/30/16 00:00 98.0 82 16 132/86 98 Mechanical Ventilator 30 10/29/16 22:54 79 16 30 10/29/16 21:15 84 17 30 10/29/16 20:00 68 10/29/16 20:00 97.3 79 16 125/61 98 Nasal Cannula 10/29/16 20:00 30 10/29/16 19:03 69 16 30 10/29/16 16:43 66 16 30 10/29/16 16:00 97.5 80 16 115/68 100 Room Air 10/29/16 16:00 82 10/29/16 15:03 80 17 30 10/29/16 12:33 84 17 30 10/29/16 12:00 97.2 80 16 139/96 99 Mechanical Ventilator 30 10/29/16 12:00 81 10/29/16 12:00 30 Intake and Output 10/29/16 10/30/16 19:00 07:00 Intake Total 590 ml 915 ml Output Total 750 ml 800 ml Balance -160 ml 115 ml Intake Free Water 200 ml 200 ml Tube Feeding 390 ml 715 ml Output Urine Total 750 ml 800 ml # Bowel Movements 1 Objective WDWN ill appearing clear breath sounds bilaterally without rhonchi or wheeze [id number] without MRG NABS nontender no HSM no CC anasarca nonfocal reduced LOC but seems near baseline based on family Laboratory Tests 10/30/16 03:25: Prothrombin Time 17.9H, Prothromb Time International Ratio 1.7H Current Medications Medications (Trade) Dose Ordered Sig/Romelia Route PRN Reason Start Time Stop Time Status Last Admin Dose Admin Acetaminophen (Tylenol) 650 mg Q6H PRN ORAL Prn Headache/Temp > 101 10/26/16 06:00 11/25/16 05:59 Carbamazepine (TEGretol) 200 mg BID GT 10/26/16 09:00 11/25/16 08:59 10/30/16 09:25 Ciprofloxacin (Cipro 500mg tab) 500 mg EVERY 12 HOURS ORAL 10/29/16 09:00 11/05/16 08:59 10/30/16 09:25 Dextrose (Dextrose 50%) STAT PRN IV Hypoglycemia 10/26/16 05:00 11/25/16 04:59 Folic Acid (Folate) 1 mg DAILY ORAL 10/26/16 09:00 11/25/16 08:59 10/30/16 09:25 Lactulose (Cephulac) 20 gm DAILY GT 10/26/16 09:00 11/25/16 08:59 10/30/16 09:25 Lamotrigine (LaMICtal) 150 mg BID ORAL 10/26/16 18:00 11/25/16 17:59 10/30/16 09:25 Levetiracetam (Keppra) 1,500 mg BID GT 10/26/16 18:00 11/25/16 17:59 10/30/16 09:26 Lorazepam (Ativan) 1 mg Q6H PRN GT For Seizures 10/30/16 12:00 11/06/16 11:59 Multivitamins (Multivitamin Hexavitamin) 5 ml DAILY GT 10/26/16 09:00 11/25/16 08:59 10/30/16 09:28 Pantoprazole (Protonix) 40 mg DAILY IVP 10/26/16 09:00 11/25/16 08:59 10/30/16 09:26 Warfarin Sodium (Coumadin per pharmacy) 1 ea DAILY PRN MISC Per rx protocol 10/26/16 11:15 11/25/16 11:14 Warfarin Sodium (Coumadin) 3 mg COUMADIN ORAL 10/30/16 17:00 10/30/16 17:01 Warfarin Sodium (Coumadin) 4 mg COUMADIN PO 10/30/16 17:00 10/30/16 17:01 EUSEBIO CRESPO Oct 30, 2016 11:54
[2016-10-30 12:00] VITALS: BP 133/87
[2016-10-30] MEDS ORDERED: LORazepam 1mg tab GT PRN (12:00)
--- NOTE | 2016-10-30 13:13 | Neurology Progress Note ---
Interim History Interim History ROS Limited/Unobtainable: Yes Complaints: awake noncommunicating Events: no sz noted Objective Physical Exam Last Vital Signs Date Time Temp Pulse Resp B/P Pulse Ox O2 Delivery O2 Flow Rate FiO2 10/30/16 11:19 66 16 30 10/30/16 08:00 97.7 147/86 100 Mechanical Ventilator Laboratory Tests Test 10/30/16 03:25 Prothrombin Time 17.9 SEC (9.30-11.50) H Prothromb Time International Ratio 1.7 (0.9-1.1) H General: well developed, no acute distress, other - trach Head: other Neck: other Neurologic Exam Mental Status: other - open eyes follows x1-2 commands,awake Speech: other - none Language: other Cranial Nerve II: fundus normal Cranial Nerves III, IV, : PERRLA, EOMI, pupils, other - r gaze preference Cranial Nerve V: masseters function normal Cranial Nerve VII: normal facial expressions Cranial Nerve VIII: no nystagmus Cranial Nerve IX: gag response, other - poor gag Cranial Nerve XII: no tongue atrophy/fasciculations Motor System: other - diffuse rigidity less active L side. 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
[2016-10-30 15:30] VITALS: BP 112/70
[2016-10-30] MEDS ORDERED: NS 275ml ONE (15:44)
[2016-10-30] MEDS ORDERED: Tubing IV Secondary IV ONE (15:44)
[2016-10-30] MEDS ORDERED: Warfarin Sodium 3mg ORAL SCH (17:00)
[2016-10-30] MEDS ORDERED: Warfarin Sodium 4mg PO SCH (17:00)
--- NOTE | 2016-10-30 20:29 | Electroencephalogram ---
DATE OF PROCEDURE: 10/26/2016 REFERRING PHYSICIAN: Gerber Shelton M.D. HISTORY: This is a 61-year-old man with intractable seizure activity, generalized, predominantly left upper extremity following a post-anoxic brain damage and alcohol substance abuse with liver disease. During recording, the patient described as stuporous, appears to be awake at times, lethargic, obtunded, but not cooperative, on ventilator assist and tracheostomy. TECHNIQUE: EEG was done using 18 electrodes placed scalp to scalp, scalp to ear montages according to 10/20 International System. Left upper extremity EMG monitoring was included. Most of recording background activity consists of a low voltage, poorly identifiable slow-wave activities with intermittent nonrhythmic, sharp/slow wave, high amplitude generalized transients, predominantly right central areas. Occasional appearance of simultaneous electrographic transients with left arm jerking noted. With sternal rub, some disruption in paroxysmal pattern while the patient described as briefly opening eyes. Throughout the recording, background remained in a very low voltage 5 to 10 mV range. There was not any significant amplitude asymmetry. The patient described to have normal reactive pupils and on deep sternal rub opens eyes, jaw movement, right hand moved pulling on his gown. IMPRESSION: Abnormal EEG presenting with periodic lateralizing epileptiform discharges, generalized, predominantly right frontal central region with intermittent episodes of left arm rhythmic jerking. COMMENT: The above abnormality represents an epileptiform activity emanating from predominantly right central region with generalization accompanied by left arm rhythmic simultaneous jerking. This is indicative of epileptiform focus in the right frontal central region with high risk of continuous generalized seizure activities. Clinical correlation is necessary. Christopher Gayle M.D. DR: MANDI JOB#: [id number] CC:
--- NOTE | 2016-10-30 23:29 | Diagnostic Imaging Report ---
APPROVED REPORT CPT Code: 93621 Present Symptoms Comments: Swelling BILATERAL: Imaging reveals a patent deep venous system bilaterally. There is no evidence of thrombus within the femoral, popliteal or tibial segments. The greater saphenous veins are also within normal limits. Doppler indicates normal spontaneous flow within these segments.
--- NOTE | 2016-11-01 15:04 | Discharge Summary ---
Discharge Summary Hospital Course Date of Admission Oct 25, 2016 at 20:31 Date of Discharge Oct 30, 2016 at 15:45 Admitting Diagnosis EPILECTIC SEIZURE HPI Francesco Rowan is a 61 year old male who was admitted on Oct 25, 2016 at 20:31 for Epilectic Seizure Hospital Course [id number] Discharge Discharge Disposition Patient was discharged to SNF/Subacute Facility(03) Discharge Diagnoses: Seda Salazar NP Nov 01, 2016 15:04
--- NOTE | 2016-11-02 04:18 | Discharge Summary 2 SIG ---
DATE OF ADMISSION: 10/25/2016 DATE OF DISCHARGE: 10/30/2016 BUGGYMAN: Christopher Gayle M.D. BRIEF HOSPITAL COURSE: The patient is a 61-year-old male with protracted hospital course. The patient was admitted to [facility] and was diagnosed with DVT of the leg and arm. He had ongoing seizures that were difficult to control. He had a code blue that required intubation. Family decided to place a G-tube and a trach, and he was in the ICU for prolonged period of time. He was eventually discharged to a senior care and there he was noted to have exacerbation of seizure and was transferred to [facility] for further evaluation. He has a history of throat CA and underwent chemo and radiation therapy. He used to be a heavy smoker and drinker and was a cocaine user. Dr. Gayle was consulted. Anti-seizure medications were increased. EEG showed periodic lateralizing epileptiform discharges, predominantly right frontal central region with intermittent episodes of left arm rhythmic jerking. He came in with a stage III pressure ulcer on the left buttock and was given local wound care. He was given ciprofloxacin as wound culture showed growth of Enterococcus and Staphylococcus aureus, both organisms sensitive to ciprofloxacin. There has been no recurrence of seizures and the patient was eventually discharged back to [facility]. FINAL DIAGNOSES: 1. Status post full arrest with anoxic encephalopathy, presenting with exacerbation of seizures 2. Intractable status epilepticus. 3. Altered level of consciousness/acute on chronic metabolic encephalopathy. 5. Deep venous thrombosis, on Coumadin. 5. Hypercoagulable state secondary to Coumadin. 6. History of throat carcinoma. 7. Stage III buttock ulcer, present on admission. Gerber Shelton M.D. I have been assigned to dictate discharge summary on this account and I was not involved in the patient's management. Seda Salazar N.P. DR: VENKAT JOB#: [id number] CC: RICH
--- NOTE | 2016-11-14 11:22 | Diagnostic Imaging Report ---
Indications: Altered level of consciousness. History of seizures Technique: Spiral acquisitions obtained through the brain. Angled axial and coronal 5 x 5 mm slices were reconstructed. Total dose length product 1411 mGycm. CTDI vol(s) 70 mGy Comparison: None Findings: There is a small area of left parietal scalp soft tissue swelling. No underlying calvarial abnormality. There is age-related enlargement of ventricles and extra-axial CSF spaces. There is periventricular deep white matter chronic ischemic change demonstrated. There is a small lacunar infarct in the region of the left internal capsule. Visualized orbits are unremarkable. There is ethmoid and sphenoid sinus disease. There is partial opacification of the mastoid air cells on the right, and complete opacification of the mastoid air cells as well as the middle ear cavity on the left. 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 If this has not previously been worked up, then contrast MRI should be considered The CT scanner at [facility] is accredited by the [employer] and the scans are performed using protocols designed to limit radiation exposure to as low as reasonably achievable to attain images of sufficient resolution adequate for diagnostic evaluation.
== END 2016-10-30 15:45 | DRG 53 ==
LOC: EDBD 19:35 → EMR 20:26 → 2W 20:31 → EDBEDREQ 10-26 01:52
PROC: 5A1955Z Respiratory Ventilation, Greater than 96 Consecutive Hours (ICD-10-PCS; principal; 2016-10-25)
DX: G40.911 Epilepsy, unspecified, intractable, with status epilepticus (principal); G93.1 Anoxic brain damage, not elsewhere classified; G93.41 Metabolic encephalopathy; Z86.718 Personal history of other venous thrombosis and embolism; Z85.89 Personal history of malignant neoplasm of other organs and systems; Z43.0 Encounter for attention to tracheostomy; Z43.1 Encounter for attention to gastrostomy; Z79.01 Long term (current) use of anticoagulants; Z92.3 Personal history of irradiation; Z88.6 Allergy status to analgesic agent; F17.200 Nicotine dependence, unspecified, uncomplicated; F14.21 Cocaine dependence, in remission
CPT/HCPCS: 36415; 70450; 71010; 80048; 80053; 80156; 80299; 82550; 82553; 82962; 84484; 85025; 85610; 87040; 87070; 87081; 87181; 87205; 87493; 93005; 93970; 94002; 94003; 95819

== ENCOUNTER 2016-11-15 18:40 | Inpatient (IN) | payer MEDICAID ==
[~2016-11-15] VITALS: Ht 172.7 cm; Wt 78.0 kg
[~2016-11-15 18:40] MED LIST: COUMADIN5 MG ORAL; CYCLOBENZAPRINE10 MG ORAL; FOLIC ACID1 MG ORAL; KEPPRA1000 MG ORAL; LACTULOSE20 GM/301 GT; LAMICTAL150 MG ORAL; MULTIVITAMINS1 EAC8 ORAL; PRO-AMATINE5 M1 GT; TEGRETOL200 MG PO; THIAMINE H100 MG/1 M IJ; TYLENOL650 MG/20. ORAL; VALIUM10 MG ORAL
[2016-11-15] MEDS ORDERED: Pantoprazole Inj IVP ONE (19:30)
[2016-11-15 19:45] VITALS: BP 129/82
[2016-11-15 19:57] LABS: BASOPHILS % (AUTO) 1.6 % (0.0-2.0); EOSINOPHILS % (AUTO) 1.3 % (0.0-3.0); LYMPHOCYTES % (AUTO) 14.8 % (20.0-45.0); MEAN CORPUSCULAR HEMOGLOBIN 36.3 PG (27.0-31.0); MEAN CORPUSCULAR HGB CONC 35.3 G/DL (32.0-36.0); MEAN CORPUSCULAR VOLUME 103 FL (80-99); MEAN PLATELET VOLUME 8.6 FL (6.5-10.1); MONOCYTES % (AUTO) 11.4 % (1.0-10.0); NEUTROPHILS % (AUTO) 70.8 % (45.0-75.0); PLATELET COUNT 180 K/UL (150-450); RED CELL DISTRIBUTION WIDTH 11.5 % (11.6-14.8); WHITE BLOOD COUNT 13.1 K/UL (4.8-10.8)
[2016-11-15 20:11] LABS: ALANINE AMINOTRANSFERASE 19 U/L (3-41); ALBUMIN/GLOBULIN RATIO 0.9 (1.0-2.7); ANION GAP 19 (5-15); ASPARTATE AMINO TRANSFERASE 33 U/L (5-40); CALCIUM 9.7 mg/dL (8.6-10.2); CARBON DIOXIDE 25 mEQ/L (20-30); CHLORIDE 90 mEQ/L (98-107); CREATININE 1.1 mg/dL (0.7-1.2); GLOMERULAR FILTRATION RATE > 60 mL/min (>60); HEMOLYSIS 1; LIPASE 23 U/L (< 60); POTASSIUM 3.7 mEQ/L (3.4-4.9); SODIUM 134 mEQ/L (135-145); TOTAL PROTEIN 8.2 g/dL (6.6-8.7)
[2016-11-15 20:22] LABS: CKMB < 1.5 ng/mL (< 6.7)
[2016-11-15 20:32] LABS: BILIRUBIN,DIRECT 0.7 mg/dL (0.1-0.3)
[2016-11-15 20:43] LABS: TROPONIN I < 0.30 ng/mL (<=0.30)
--- NOTE | 2016-11-15 22:18 | Emergency Room Report ---
History of Present Illness General Chief Complaint: General Complaint Source: Medical Record Present Illness HPI 61-year-old male presents to ED for evaluation. Patient sent here for evaluation. Per nursing at [facility] at home patient has had coffee-ground emesis x1 day. Patient abdomen also distended. Patient denies any abdominal pain. Denies any fevers or chills. Denies chest pain or shortness of breath. Patient has a trach and G-tube. No other aggravating relieving factors. Denies any other associated symptoms Allergies: Coded Allergies: CODEINE (Verified Allergy, Unknown, 11/15/16) Patient History Past Medical History: HTN, seizures, other - liver disease Past Surgical History: none Pertinent Family History: none Social History: Denies: alcohol use, drug use, smoking Immunizations: UTD Reviewed Nursing Documentation: PMH: Agreed, PSxH: Agreed Nursing Documentation-PMH Past Medical History: No History, Except For Hx Cardiac Problems: Yes - alcoholic liver disease Hx Hypertension: Yes Hx Cancer: Yes Hx Gastrointestinal Problems: No Hx Neurological Problems: Yes Hx Seizures: Yes Review of Systems All Other Systems: negative except mentioned in HPI Physical Exam Vital Signs Date Time Temp Pulse Resp B/P Pulse Ox O2 Delivery O2 Flow Rate FiO2 11/15/16 18:43 99.0 101 18 132/86 98 Mechanical Ventilator 11/15/16 19:00 40 Sp02 EP Interpretation: reviewed, normal General Appearance: no apparent distress, alert, GCS 15, non-toxic Head: normocephalic Eyes: bilateral eye PERRL, bilateral eye normal inspection ENT: hearing grossly normal, normal pharynx, no angioedema, normal voice Neck: tracheotomy Respiratory: chest non-tender, lungs clear, normal breath sounds, speaking full sentences Cardiovascular #1: regular rate, rhythm, no edema Gastrointestinal: normal bowel sounds, soft, no guarding, no rebound, distended Rectal: deferred Genitourinary: no CVA tenderness Musculoskeletal: normal inspection Neurologic: alert Psychiatric: normal inspection Skin: normal inspection Lymphatic: normal inspection Medical Decision Making Diagnostic Impression: Primary Impression: UGIB (upper gastrointestinal bleed) Additional Impressions: Ileus Gastrostomy malfunction ER Course Hospital Course 61-year-old male presents to ED with episodes of coffee ground emesis. abd distension Differential diagnoses include: UGIB, SBO, colitis Clinical course Patient placed on stretcher. athletic monitor. After initial history and physical I ordered labs, IV fluids, CT, zofran/protonix Labs - no leukocytosis, Hb/Hct stable, BUN elevated CT abdomen and pelvis - fluid-filled bowel without transition point. ileus vs enteritis. No obvious obstruction. Gastrostomy tube within abdominal wall EKG-sinus rhythm no acute changes G-tube is not the kind that he be changed at bedside. Case discussed with Dr. Shelton and he agreed to accept the patient to his service for further care and support I feel this is a highly complex case requiring extensive working including EKG/ Rhythm strip, Xray/CT/US, Blood/urine lab work, repeat exams while in ED, and administration of strong opiates/narcotics for pain control, admission to hospital or close patient follow up. Diagnosis - UGIB, ileus, gastrostomy malfunction Patient admitted to [facility] in serious condition Labs Test 11/15/16 19:40 White Blood Count 13.1 K/UL (4.8-10.8) Red Blood Count 3.50 M/UL (4.70-6.10) Hemoglobin 12.7 G/DL (14.2-18.0) Hematocrit 36.1 % (42.0-52.0) Mean Corpuscular Volume 103 FL (80-99) Mean Corpuscular Hemoglobin 36.3 PG (27.0-31.0) Mean Corpuscular Hemoglobin Concent 35.3 G/DL (32.0-36.0) Red Cell Distribution Width 11.5 % (11.6-14.8) Platelet Count 180 K/UL (150-450) Mean Platelet Volume 8.6 FL (6.5-10.1) Neutrophils (%) (Auto) 70.8 % (45.0-75.0) Lymphocytes (%) (Auto) 14.8 % (20.0-45.0) Monocytes (%) (Auto) 11.4 % (1.0-10.0) Eosinophils (%) (Auto) 1.3 % (0.0-3.0) Basophils (%) (Auto) 1.6 % (0.0-2.0) Sodium Level 134 mEQ/L (135-145) Potassium Level 3.7 mEQ/L (3.4-4.9) Chloride Level 90 mEQ/L (98-107) Carbon Dioxide Level 25 mEQ/L (20-30) Anion Gap 19 (5-15) Blood Urea Nitrogen 32 mg/dL (7-23) Creatinine 1.1 mg/dL (0.7-1.2) Estimat Glomerular Filtration Rate > 60 mL/min (>60) Glucose Level 137 mg/dL (74-106) Calcium Level 9.7 mg/dL (8.6-10.2) Total Bilirubin 1.6 mg/dL (0.0-1.2) Direct Bilirubin 0.7 mg/dL (0.1-0.3) Aspartate Amino Transf (AST/SGOT) 33 U/L (5-40) Alanine Aminotransferase (ALT/SGPT) 19 U/L (3-41) Alkaline Phosphatase 188 U/L (40-129) Total Creatine Kinase 73 U/L (38-174) Creatine Kinase MB < 1.5 ng/mL (< 6.7) Creatine Kinase MB Relative Index Troponin I < 0.30 ng/mL (<=0.30) Total Protein 8.2 g/dL (6.6-8.7) Albumin 3.9 g/dL (3.5-5.2) Globulin 4.3 g/dL Albumin/Globulin Ratio 0.9 (1.0-2.7) Lipase 23 U/L (< 60) EKG Diagnostic Results Rate: normal Rhythm: NSR ST Segments: no acute changes ASA given to the pt in ED: No Rhythm Strip Diag. Results EP Interpretation: yes Rhythm: NSR, no PVC's, no ectopy CT/MRI/US Diagnostic Results CT/MRI/US Diagnostic Results : Imaging Test Ordered: CT A/P Impression ileus or enteritis. no transition point. gastrostomy within abdominal wall. Last Vital Signs Date Time Temp Pulse Resp B/P Pulse Ox O2 Delivery O2 Flow Rate FiO2 11/15/16 21:13 93 16 40 11/15/16 18:43 99.0 132/86 98 Mechanical Ventilator Status: improved Disposition: ADMITTED INPATIENT Condition: Serious Referrals: EUSEBIO SHELTON (PCP) IGLESIA BYRNES M.D. Nov 15, 2016 22:18
[2016-11-15 22:34] VITALS: BP 118/76
[2016-11-15 23:28] LABS: APPEARANCE,URINE CLEAR; KETONES,URINE NEGATIVE (NEGATIVE); LEUKOCYTE ESTERASE ,URINE 2+ (NEGATIVE); NITRITE,URINE NEGATIVE (NEGATIVE); PH,URINE 5 (4.5-8.0); PROTEIN,URINE 2+ (NEGATIVE); UROBILINOGEN,URINE NORMAL MG/DL (0.0-1.0)
[2016-11-15 23:54] LABS: BACTERIA,URINE FEW /HPF; SQUAMOUS EPITHELIAL CELL,UR OCCASIONAL /LPF (NONE/OCC)
[2016-11-15 23:55] LABS: AMORPHOUS SEDIMENT,UR OCCASIONAL /LPF
[2016-11-16 01:53] LABS: EOSINOPHILS % (AUTO) 1.8 % (0.0-3.0); LYMPHOCYTES % (AUTO) 14.5 % (20.0-45.0); MEAN CORPUSCULAR HEMOGLOBIN 34.9 PG (27.0-31.0); MEAN CORPUSCULAR HGB CONC 34.7 G/DL (32.0-36.0); MEAN CORPUSCULAR VOLUME 101 FL (80-99); MEAN PLATELET VOLUME 9.1 FL (6.5-10.1); MONOCYTES % (AUTO) 9.6 % (1.0-10.0); NEUTROPHILS % (AUTO) 73.2 % (45.0-75.0); PLATELET COUNT 132 K/UL (150-450); RED BLOOD COUNT 3.03 M/UL (4.70-6.10); RED CELL DISTRIBUTION WIDTH 11.3 % (11.6-14.8)
[2016-11-16 02:13] LABS: INR 3.2 (0.9-1.1); PROTHROMBIN TIME 33.7 SEC (9.30-11.50)
[2016-11-16 02:14] LABS: ANION GAP 14 (5-15); CALCIUM 8.7 mg/dL (8.6-10.2); CARBON DIOXIDE 24 mEQ/L (20-30); CHLORIDE 95 mEQ/L (98-107); CREATININE 0.8 mg/dL (0.7-1.2); GLOMERULAR FILTRATION RATE > 60 mL/min (>60); HEMOLYSIS 0; POTASSIUM 3.5 mEQ/L (3.4-4.9); SODIUM 133 mEQ/L (135-145)
[2016-11-16] MEDS ORDERED: MILK OF MA400 MG/51 GT (03:12)
[2016-11-16] MEDS ORDERED: ATIVAN1 MG GT (03:12)
[2016-11-16] MEDS ORDERED: COLACE100 MG GT (03:12)
[2016-11-16] MEDS ORDERED: ZINC SULFATE220 M1 GT (03:12)
[2016-11-16] MEDS ORDERED: PROMOD946 ML GT (03:12)
[2016-11-16] MEDS ORDERED: VITAMIN C500 M1 GT (03:12)
[2016-11-16] MEDS ORDERED: Albuterol ud Inhalation HHN PRN (03:15)
[2016-11-16] MEDS ORDERED: Ipratropium 0.02% Inh Soln 2.5ml UD HHN PRN (03:15)
[2016-11-16] MEDS ORDERED: Acetaminophen 650mg/20.3ml ORAL PRN (03:15)
[2016-11-16] MEDS ORDERED: Milk of Magnesia 30ml Ud GT PRN (03:15)
[2016-11-16] MEDS ORDERED: Milk of Magnesia 30ml Ud NG PRN (03:45)
[2016-11-16 04:00] VITALS: BP 126/84
[2016-11-16] MEDS ORDERED: Albuterol ud Inhalation HHN SCH (07:00)
[2016-11-16] MEDS ORDERED: Ipratropium 0.02% Inh Soln 2.5ml UD HHN SCH (07:00)
[2016-11-16 08:00] VITALS: BP 124/56
[2016-11-16] MEDS ORDERED: Docusate 250mg cap ORAL SCH (09:00)
[2016-11-16] MEDS ORDERED: LaMICtal 150mg tab ORAL SCH (09:00)
[2016-11-16] MEDS ORDERED: Zinc Sulfate 220mg cap GT SCH (09:00)
[2016-11-16] MEDS ORDERED: Ascorbic Acid 500mg tab GT SCH (09:00)
[2016-11-16] MEDS ORDERED: Multivitamin w/Minerals tab ORAL SCH (09:00)
--- NOTE | 2016-11-16 09:00 | Diagnostic Imaging Report ---
Clinical Indication: Abdominal pain Technique: No enteric contrast utilized, per emergency room physician request IV administration nonionic contrast. Venous phase spiral acquisition obtained through the abdomen and pelvis. Multiplanar reconstructions were generated. Total dose length product 971 mGycm. CTDIvol(s) 8 mGy Comparison: None Findings: Small bowel loops are diffusely dilated and fluid-filled. There is no transition to normal caliber small bowel, except for a tapering at the level of the terminal ileum approximately 4 cm proximal to the ileocecal valve. The most proximal portions of the jejunum are also nondilated. No small bowel wall thickening. No free or loculated intraperitoneal air or fluid is evident. There is a gastrostomy, the balloon of which is within the subcutaneous fat of the anterior abdominal wall. There is an apparent sinus tract along the course of the gastrostomy tract, leading to the abdominal wall musculature which may remain not communicate with the gastric lumen. There is a suggestion of an old gastrostomy tract medial to this, as well. What may be surgical clips or anchors are seen, one immediately anterior to the anterior gastric wall, and one within the subcutaneous fat superficial to the stomach. There is a small sliding-type hiatal hernia, and there is there fluid within the distal esophagus. The stomach is otherwise unremarkable. Duodenum is unremarkable. There is evidence of colonic diverticulosis. No evidence of diverticulitis. The appendix is somewhat prominent in caliber, measuring 8 mm in diameter, but most of it is gas-filled and there is no significant periappendiceal inflammation. There are gallstones. No biliary ductal dilatation. The liver, pancreas, spleen, adrenals, kidneys are unremarkable. No mesenteric or retroperitoneal mass or adenopathy. No pelvic mass or adenopathy. There is a Barroso catheter within the bladder, which is nondistended. There are small fat-containing bilateral inguinal hernias. There is minimal edema of the left flank and buttock subcutaneous fat. The left lung base demonstrates posterior volume loss and consolidation. This may in part be chronic as there is suggestion of some bronchiectasis. There is also scarring versus atelectasis at the right lung base. The heart is enlarged. The bones demonstrate degenerative changes of the lumbosacral spine. There is an area of sclerosis of the right iliac bone which appears chronic in nature. Impression: Distended gas and fluid-filled small bowel loops, extending to the terminal ileum. No definite obstructive pathology. Suspect findings on the basis of enteritis/ileus, although small bowel obstruction at the level of terminal ileum is not completely excludable Displacement of gastrostomy tube tip and balloon, which are located in the subcutaneous fat superficial to the stomach. No evidence of associated abscess Cholelithiasis Diverticulosis. No evidence of diverticulitis Left basilar pulmonary parenchymal volume loss and consolidation. Suggestion of bronchiectasis indicates that this may be chronic, but acute infiltrate not excludable. There is also scarring atelectasis at the right lung base Mild cardiomegaly Small sliding-type hiatal hernia. Fluid within the distal esophagus without evidence of obstructive pathology, suspect on the basis of reflux or motility disorder Osteosclerotic lesion of the right iliac bone. Nonspecific, suspect benign Other findings as noted, including degenerative lumbar spondylosis, left flank and buttock subcutaneous fat edema, wall fat-containing bilateral inguinal hernias, Barroso catheter This agrees with the preliminary interpretation provided overnight by Dr. Salazar The CT scanner at [facility] is accredited by the [employer] and the scans are performed using protocols designed to limit radiation exposure to as low as reasonably achievable to attain -- images of sufficient resolution adequate for diagnostic evaluation.
[2016-11-16] MEDS ORDERED: Acetaminophen 650mg/20.3ml NG PRN (09:15)
[2016-11-16] MEDS: Zinc Sulfate 220mg cap NG SCH (09:43)
[2016-11-16] MEDS: Ascorbic Acid 500mg tab NG SCH (09:43)
[2016-11-16] MEDS: Docusate 100mg tablet NG SCH (09:44)
[2016-11-16] MEDS: Lactulose 20gm/30ml UDC GT SCH (09:48)
--- NOTE | 2016-11-16 10:41 | Diagnostic Imaging Report ---
Indication: Post nasogastric tube placement Technique: One view of the upper abdomen Comparison: Professor Of Law image from CT scan of 11/15/2016 Findings: Interim placement of a nasogastric tube, tip of which is coiled in the gastric fundus, in satisfactory position. Gastrostomy tube, demonstrated on CT to be malpositioned, is evident. 2 T-fasteners are also noted. Incidentally noted is consolidation at the left lung base Impression: Satisfactory position of nasogastric tube This agrees with the preliminary interpretation provided overnight by [facility] service.
[2016-11-16] MEDS: carBAMazepine 200mg tab NG SCH ×2 (11:24→21:53)
[2016-11-16] MEDS: Multivitamins W/Minerals 15 ML UDC NG SCH (11:54)
[2016-11-16 11:56] VITALS: BP 110/68
--- NOTE | 2016-11-16 12:20 | Diagnostic Imaging Report ---
Indication: Status post gastrostomy replacement Technique: Supine view of the abdomen after injection of water-soluble contrast into gastrostomy Comparison: none Findings: Contrast opacifies the stomach. No contrast extravasation is demonstrated. The bowel gas pattern is unremarkable. Impression: Satisfactory position of gastrostomy tube
[2016-11-16] MEDS: DuoNeb 0.5-3(2.5)mg/3ml neb HHN SCH ×2 (13:43→18:52)
[2016-11-16 16:20] VITALS: BP 110/66
--- NOTE | 2016-11-16 16:58 | Wound Care Consultation ---
Wound Assessment Wound Assessment : Wound Present on Admission: Yes New Wound: No Status Change of Wound: No Wound Location Body Site Modif: left Wound Location Body Site: buttocks Wound Type: pressure ulcer Martin Test: Does not Martin Pressure Ulcer Stage: III - resolving Wound Thickness: Full Thickness Wound Length: 3.0 Wound Width: 3.0 Percent of Wound Mulberry/Red: 100 Wound Drainage Amount: None Wound Drainage Odor: None/Absent Tissue Surrounding Wound: Erythemic Wound General Appearance: Reddened Wound Comment #1 Left buttock stage III pressure ulcer Recommendation -Left buttock Resolving stage III pressure ulcer Cleanse with saline, pat dry, apply Triad cream, cover with bordered gauze daily and PRN soiled/dislodged -Turn and reposition -Keep clean and dry -Optimize nutrition -Low air loss overlay mattress -Offload both heels -Heel protector on both heels -Assess and f/u accordingly for any changes KELECHI IGNACIO RN Nov 16, 2016 16:58
--- NOTE | 2016-11-16 18:58 | History and Physical Report ---
DATE OF ADMISSION: 11/15/2016 REASON FOR ADMISSION: Evaluation of possible gastrointestinal bleed, possible G-tube dislodgement. HISTORY OF PRESENT ILLNESS: The patient is a 61-year-old male who presents to the emergency room. The patient describes coffee-ground emesis with abdominal distention. The patient denies any fever or chills. The patient was brought into the emergency room concerning that the G-tube was not adequately in the stomach, but the G-tube could not be advanced safely. The patient currently is comfortable, no acute distress. PAST MEDICAL HISTORY: Notable for seizures, cirrhosis, alcoholism, chronic encephalopathy. FAMILY HISTORY: Reviewed. REVIEW OF SYSTEMS: Difficult to obtain. PHYSICAL EXAMINATION: GENERAL: A well-developed male, somewhat withdrawn but arousable VITAL SIGNS: Stable. LUNGS: Otherwise clear. Tracheostomy in midline. Carotids 2+ CARDIAC: S1 and S2. Regular rate and rhythm. ABDOMEN: Soft and nondistended. G-tube noted. EXTREMITIES: No edema. Withdrawn. IMPRESSION: 1. Respiratory failure. 2. Possible gastrostomy tube dislodgement. 3. Possible upper gastrointestinal bleeding. 4. anemia. 5. Known history of deep venous thrombosis on Coumadin. 6. Chronic encephalopathy. 7. Alcoholic liver disease. 8. seizure disorder RECOMMENDATION: Monitor clinically, IV hydration, hold feeding. Continue oral medications. Monitor for seizures. GI evaluation to assist and recommend further. will update the daughter and dc when safe Gerber Shelton M.D. DR: Sherri JOB#: [id number] CC: RICH
[2016-11-16] MEDS ORDERED: Sterile Water Irrig 1000ml IRRIG ONE (19:19)
--- NOTE | 2016-11-16 19:45 | General Progress Note ---
Assessment/Plan Assessment/Plan GI Consult GT migrated out of stomach into anterior abd wall some GT site bleeding noted GT removed , tract flushed, and replaced with temporary rahman Will replace with replacement GT in am. Thank you Jacob Farmer MD Subjective Allergies: Coded Allergies: CODEINE (Verified Allergy, Unknown, 11/15/16) Objective Last 24 Hour Vital Signs Date Time Temp Pulse Resp B/P Pulse Ox O2 Delivery O2 Flow Rate FiO2 11/16/16 19:07 81 18 100 Mechanical Ventilator 11/16/16 18:53 78 19 100 Mechanical Ventilator 40 11/16/16 18:53 78 19 40 11/16/16 17:20 101 20 40 11/16/16 16:20 98.8 74 16 110/66 100 Mechanical Ventilator 40 11/16/16 16:00 99 11/16/16 16:00 40 11/16/16 15:22 75 16 40 11/16/16 13:31 72 16 100 Mechanical Ventilator 11/16/16 13:21 71 16 40 11/16/16 13:20 71 16 100 Mechanical Ventilator 40 11/16/16 12:00 85 11/16/16 12:00 40 11/16/16 11:56 97.3 78 16 110/68 98 Mechanical Ventilator 40 11/16/16 11:14 92 15 40 11/16/16 09:16 88 15 40 11/16/16 08:00 92 11/16/16 08:00 97.0 93 16 124/56 97 Mechanical Ventilator 40 11/16/16 08:00 40 11/16/16 07:50 83 21 100 Mechanical Ventilator 11/16/16 07:42 83 21 40 11/16/16 07:40 83 21 100 Mechanical Ventilator 11/16/16 05:23 91 16 40 11/16/16 04:00 40 11/16/16 04:00 97.0 84 16 126/84 96 Mechanical Ventilator 40 11/16/16 04:00 77 11/16/16 03:29 98 16 40 11/16/16 01:01 95 16 40 11/16/16 00:00 83 11/15/16 23:05 99.0 101 16 118/76 100 Mechanical Ventilator 40 11/15/16 23:00 98 16 40 11/15/16 22:34 99.0 101 16 118/76 100 Mechanical Ventilator 40 11/15/16 21:13 93 16 40 11/15/16 19:45 99.0 106 16 129/82 99 Mechanical Ventilator 40 Intake and Output 11/15/16 11/16/16 19:00 07:00 Intake Total 425 ml Output Total 300 ml Balance 125 ml Intake Oral 0 ml IV Total 425 ml Output Urine Total 300 ml # Bowel Movements 2 Laboratory Tests 11/15/16 19:40: White Blood Count 13.1H, Red Blood Count 3.50L, Hemoglobin 12.7L, Hematocrit 36.1L, Mean Corpuscular Volume 103H, Mean Corpuscular Hemoglobin 36.3H, Mean Corpuscular Hemoglobin Concent 35.3, Red Cell Distribution Width 11.5L, Platelet Count 180, Mean Platelet Volume 8.6, Neutrophils (%) (Auto) 70.8, Lymphocytes (%) (Auto) 14.8L, Monocytes (%) (Auto) 11.4H, Eosinophils (%) (Auto ) 1.3, Basophils (%) (Auto) 1.6, Sodium Level 134L, Potassium Level 3.7, Chloride Level 90L, Carbon Dioxide Level 25, Anion Gap 19H, Blood Urea Nitrogen 32H, Creatinine 1.1, Estimat Glomerular Filtration Rate > 60, Glucose Level 137H , Calcium Level 9.7, Total Bilirubin 1.6H, Direct Bilirubin 0.7H, Aspartate Amino Transf (AST/SGOT) 33, Alanine Aminotransferase (ALT/SGPT) 19, Alkaline Phosphatase 188H, Total Creatine Kinase 73, Creatine Kinase MB < 1.5, Creatine Kinase MB Relative Index , Troponin I < 0.30, Total Protein 8.2, Albumin 3.9, Globulin 4.3, Albumin/Globulin Ratio 0.9L, Lipase 23 11/15/16 22:32: Urine Color Yellow, Urine Appearance Clear, Urine pH 5, Urine Specific Show Low 1.010, Urine Protein 2+H, Urine Glucose (UA) Negative, Urine Ketones Negative, Urine Occult Blood 4+H, Urine Nitrite Negative, Urine Bilirubin Negative, Urine Urobilinogen Normal, Urine Leukocyte Esterase 2+H, Urine RBC 5-10H, Urine WBC 2- 4, Urine Squamous Epithelial Cells Occasional, Urine Amorphous Sediment Occasional, Urine Bacteria Few 11/16/16 01:40: White Blood Count 9.0, Red Blood Count 3.03L, Hemoglobin 10.6L, Hematocrit 30.5L , Mean Corpuscular Volume 101H, Mean Corpuscular Hemoglobin 34.9H, Mean Corpuscular Hemoglobin Concent 34.7, Red Cell Distribution Width 11.3L, Platelet Count 132L, Mean Platelet Volume 9.1, Neutrophils (%) (Auto) 73.2, Lymphocytes (%) (Auto) 14.5L, Monocytes (%) (Auto) 9.6, Eosinophils (%) (Auto) 1.8, Basophils (%) (Auto) 1.0, Sodium Level 133L, Potassium Level 3.5, Chloride Level 95L, Carbon Dioxide Level 24, Anion Gap 14, Blood Urea Nitrogen 26H, Creatinine 0.8, Estimat Glomerular Filtration Rate > 60, Glucose Level 106, Calcium Level 8.7, Prothrombin Time 33.7H, Prothromb Time International Ratio 3.2H Height (Feet): 5 Height (Inches): 8.00 Weight (Pounds): 80 JACOB FARMER Nov 16, 2016 19:45
[2016-11-16 20:00] VITALS: BP 127/86
[2016-11-16] MEDS: Pantoprazole Inj IVP SCH (21:53)
[2016-11-17] VITALS (7 sets, daily range): BP systolic 106–145; BP diastolic 71–87
[2016-11-17] MEDS: DuoNeb 0.5-3(2.5)mg/3ml neb HHN SCH ×4 (01:13→19:27)
[2016-11-17] MEDS: LORazepam 1mg tab GT PRN ×3 (03:01→17:40)
--- NOTE | 2016-11-17 03:58 | Consultation ---
DATE OF CONSULTATION: 11/16/2016 GASTROLOGY CONSULTATION CHIEF COMPLAINT: I was asked to see this patient for evaluation of gastrostomy tube dislodgement. HISTORY OF PRESENT ILLNESS: The patient is a 61-year-old man, who has a chronic tracheostomy and gastrostomy, who was brought into the emergency room with abdominal distention and emesis. The patient subsequently had a CT scan, which showed the gastrostomy tube dislodgement in the anterior abdominal wall. Upon my arrival, the gastrostomy tube site appeared to have some bleeding from it and it is clearly not within the stomach since it was stuck here. The patient himself was on tracheostomy and unable to provide any history. Therefore, information is only available from the chart notes. The gastrostomy tube was removed at the bedside and some food-like material and some blood-tinged discharge came from the gastrostomy site. The site was subsequently cleaned and flushed with saline and it became clear. Thereafter, a 16-Faroese Barroso catheter was placed to gravity, the tip of the balloon was inflated, and the position was verified by bedside technique. PAST MEDICAL HISTORY: History of seizure, cirrhosis, alcoholism, tracheostomy tube placement, status gastrostomy tube placement. FAMILY HISTORY: Noncontributory and unavailable. SOCIAL HISTORY: Noncontributory and unavailable. REVIEW OF SYSTEMS: Unobtainable. PHYSICAL EXAMINATION: GENERAL: A debilitated man with tracheostomy and gastrostomy tube, seen with a nurse at bedside. HEENT: Normocephalic and atraumatic. Tracheostomy in the neck area. CHEST: Reveals coarse breath sounds. CARDIOVASCULAR: Revealed regular rate. ABDOMEN: Soft, but distended with a gastrostomy tube change as described above. EXTREMITIES: Revealed no edema. LABORATORY DATA: Noted. ASSESSMENT: This patient presents with some small bleeding from the gastrostomy site. This is due to the gastrostomy tube migrating into the anterior abdominal wall. The patient being on Coumadin, also promoting bleeding. The problem, however, has apparently been resolved with the change of gastrostomy tube. I will place the gastrostomy tube to gravity and observe the patient overnight. Feeding can resume tomorrow morning. The Barroso catheter that was used today and the gastrostomy tube can be replaced with a formal gastrostomy placement catheter. RECOMMENDATIONS: Per above discussion and per orders written in the chart. Thank you for asking me to participate in the care of this patient. Jacob Farmer M.D. DR: MARGO JOB#: [id number] CC:
[2016-11-17 05:48] LABS: INR 2.9 (0.9-1.1); PROTHROMBIN TIME 30.2 SEC (9.30-11.50)
[2016-11-17] MEDS: Zinc Sulfate 220mg cap NG SCH (08:29)
[2016-11-17] MEDS: Lactulose 20gm/30ml UDC GT SCH (08:29)
[2016-11-17] MEDS: Docusate 100mg tablet NG SCH (08:30)
[2016-11-17] MEDS: Multivitamins W/Minerals 15 ML UDC NG SCH (08:30)
[2016-11-17] MEDS: carBAMazepine 200mg tab NG SCH ×2 (08:30→18:04)
[2016-11-17] MEDS: Ascorbic Acid 500mg tab NG SCH (08:30)
[2016-11-17] MEDS: Pantoprazole Inj IVP SCH (08:31)
--- NOTE | 2016-11-17 08:57 | General Progress Note ---
Assessment/Plan Assessment/Plan IMPRESSION: 1. Respiratory failure 2. Possible gastrostomy tube dislodgement. 3. Possible upper gastrointestinal bleeding. 4. anemia. 5. Known history of deep venous thrombosis on Coumadin. 6. Chronic encephalopathy. 7. Alcoholic liver disease PLAN defer to GI GT rectal tube maintain meds monitor for change control diarrhea ventilator management impression, plan, and exam edited and reviewed in detail care discussed with RN. Subjective Allergies: Coded Allergies: CODEINE (Verified Allergy, Unknown, 11/15/16) Subjective awake has rectal tube, gt, ngt, rahman Objective Last 24 Hour Vital Signs Date Time Temp Pulse Resp B/P Pulse Ox O2 Delivery O2 Flow Rate FiO2 11/17/16 08:00 97.7 74 19 125/75 100 Mechanical Ventilator 40 11/17/16 05:14 91 16 40 11/17/16 04:30 97.9 9 20 145/71 100 Mechanical Ventilator 40 11/17/16 04:00 40 11/17/16 03:42 85 11/17/16 03:29 88 16 40 11/17/16 01:51 85 16 100 Mechanical Ventilator 11/17/16 01:13 86 19 100 Mechanical Ventilator 40 11/17/16 01:05 86 16 40 11/17/16 00:14 98.1 72 16 130/80 100 Mechanical Ventilator 40 11/17/16 00:00 40 11/16/16 23:37 67 11/16/16 23:13 92 18 40 11/16/16 21:10 85 20 40 11/16/16 20:00 97.7 74 18 127/86 97 Mechanical Ventilator 40 11/16/16 20:00 40 11/16/16 20:00 84 11/16/16 19:07 81 18 100 Mechanical Ventilator 11/16/16 18:53 78 19 100 Mechanical Ventilator 40 11/16/16 18:53 78 19 40 11/16/16 17:20 101 20 40 11/16/16 16:20 98.8 74 16 110/66 100 Mechanical Ventilator 40 11/16/16 16:00 99 11/16/16 16:00 40 11/16/16 15:22 75 16 40 11/16/16 13:31 72 16 100 Mechanical Ventilator 11/16/16 13:21 71 16 40 11/16/16 13:20 71 16 100 Mechanical Ventilator 40 11/16/16 12:00 85 11/16/16 12:00 40 11/16/16 11:56 97.3 78 16 110/68 98 Mechanical Ventilator 40 11/16/16 11:14 92 15 40 11/16/16 09:16 88 15 40 Intake and Output 11/16/16 11/17/16 19:00 07:00 Intake Total 1150 ml 1000 ml Output Total 200 ml 630 ml Balance 950 ml 370 ml IV Total 1150 ml 1000 ml Output Urine Total 200 ml 380 ml Stool Total 0 ml Other 250 ml # Bowel Movements 2 101 Laboratory Tests 11/17/16 05:15: Prothrombin Time 30.2H, Prothromb Time International Ratio 2.9H Height (Feet): 5 Height (Inches): 8.00 Weight (Pounds): 80 Objective GENERAL: A well-developed male, somewhat withdrawn but responds VITAL SIGNS: Stable. LUNGS: Otherwise clear. Tracheostomy in midline. Carotids 2+ CARDIAC: S1 and S2. Regular rate and rhythm. ABDOMEN: Soft and nondistended. G-tube noted. EXTREMITIES: No edema. Withdrawn. tubes in place EUSEBIO CRESPO Nov 17, 2016 08:56
[2016-11-17] MEDS ORDERED: levETIRAcetam 500mg/5ml Liquid NG SCH (09:00)
--- NOTE | 2016-11-17 10:22 | Diagnostic Imaging Report ---
Indication: Status post nasogastric tube placement Technique: Supine abdomen Comparison: Examination from earlier the same day at 0903 hrs. Findings: Nasogastric tube is seen within the stomach. Contrast is noted in the colon. Impression: Nasogastric tube placement within the stomach.
--- NOTE | 2016-11-17 15:52 | General Progress Note ---
Assessment/Plan Assessment/Plan Assessment - GT migration / complication - GT site bleeding - resolved - GT tract tunnel infection - dysphagia - anemia - anticoagulated Recommendation - GT changed again today, to 20 Fr replacement catheter - OK to continue anticoagulation from GI standpoint - abx - systemic and topical - begin TF Subjective Allergies: Coded Allergies: CODEINE (Verified Allergy, Unknown, 11/15/16) Subjective uneventful night no UGI bleeding noted GT drainage bilious (+) purulent GT site drainage Objective Last 24 Hour Vital Signs Date Time Temp Pulse Resp B/P Pulse Ox O2 Delivery O2 Flow Rate FiO2 11/17/16 13:15 89 16 100 Mechanical Ventilator 11/17/16 13:10 88 16 100 Mechanical Ventilator 40 11/17/16 13:00 88 16 40 11/17/16 12:00 40 11/17/16 12:00 98.1 73 16 132/87 100 Mechanical Ventilator 40 11/17/16 12:00 77 11/17/16 10:54 91 16 40 11/17/16 08:57 90 23 40 11/17/16 08:00 75 11/17/16 08:00 40 11/17/16 08:00 97.7 74 19 125/75 100 Mechanical Ventilator 40 11/17/16 07:10 90 23 100 Mechanical Ventilator 11/17/16 07:00 92 21 99 Mechanical Ventilator 40 11/17/16 07:00 92 21 40 11/17/16 05:14 91 16 40 11/17/16 04:30 97.9 9 20 145/71 100 Mechanical Ventilator 40 11/17/16 04:00 40 11/17/16 03:42 85 11/17/16 03:29 88 16 40 11/17/16 01:51 85 16 100 Mechanical Ventilator 11/17/16 01:13 86 19 100 Mechanical Ventilator 40 11/17/16 01:05 86 16 40 11/17/16 00:14 98.1 72 16 130/80 100 Mechanical Ventilator 40 11/17/16 00:00 40 11/16/16 23:37 67 11/16/16 23:13 92 18 40 11/16/16 21:10 85 20 40 11/16/16 20:00 97.7 74 18 127/86 97 Mechanical Ventilator 40 11/16/16 20:00 40 11/16/16 20:00 84 11/16/16 19:07 81 18 100 Mechanical Ventilator 11/16/16 18:53 78 19 100 Mechanical Ventilator 40 11/16/16 18:53 78 19 40 11/16/16 17:20 101 20 40 11/16/16 16:20 98.8 74 16 110/66 100 Mechanical Ventilator 40 11/16/16 16:00 99 11/16/16 16:00 40 Intake and Output 11/16/16 11/17/16 19:00 07:00 Intake Total 1150 ml 1000 ml Output Total 200 ml 880 ml Balance 950 ml 120 ml IV Total 1150 ml 1000 ml Output Urine Total 200 ml 380 ml Stool Total 0 ml Other 500 ml # Bowel Movements 2 101 Laboratory Tests 11/17/16 05:15: Prothrombin Time 30.2H, Prothromb Time International Ratio 2.9H Height (Feet): 5 Height (Inches): 8.00 Weight (Pounds): 80 Objective Debilitated AA man NCAT supple CTA RRR Soft ND NT, GT site with some purulent drainage no edema restrained MANNY KAUR Nov 17, 2016 15:52
[2016-11-17] MEDS ORDERED: Warfarin Sodium 2.5mg ORAL ONE (17:00)
[2016-11-17] MEDS: Augmentin 250mg/5ml Susp 75ml NG SCH ×2 (17:07→22:17)
[2016-11-17] MEDS: levETIRAcetam 500mg/5ml Liquid NG SCH (18:03)
[2016-11-17] MEDS: Polysporin Oint 30gm TOPIC SCH ×2 (18:04→20:34)
[2016-11-18] VITALS: BP 106/62
[2016-11-18] MEDS: DuoNeb 0.5-3(2.5)mg/3ml neb HHN SCH ×4 (01:01→19:12)
[2016-11-18] MEDS: LORazepam 1mg tab GT PRN ×4 (03:07→21:05)
[2016-11-18 04:00] VITALS: BP 122/88
[2016-11-18 04:35] LABS: INR 2.8 (0.9-1.1); PROTHROMBIN TIME 29.8 SEC (9.30-11.50)
[2016-11-18] MEDS: Augmentin 250mg/5ml Susp 75ml NG SCH ×2 (06:36→14:05)
[2016-11-18 08:00] VITALS: BP 142/87
[2016-11-18] MEDS: Multivitamins W/Minerals 15 ML UDC NG SCH (09:03)
[2016-11-18] MEDS: Ascorbic Acid 500mg tab NG SCH (09:04)
[2016-11-18] MEDS: Lactulose 20gm/30ml UDC GT SCH (09:04)
[2016-11-18] MEDS: carBAMazepine 200mg tab NG SCH ×2 (09:04→17:06)
[2016-11-18] MEDS: Polysporin Oint 30gm TOPIC SCH ×4 (09:04→20:48)
[2016-11-18] MEDS: Zinc Sulfate 220mg cap NG SCH (09:04)
[2016-11-18] MEDS: Docusate 100mg tablet NG SCH (09:04)
[2016-11-18] MEDS: levETIRAcetam 500mg/5ml Liquid NG SCH ×2 (09:04→17:07)
[2016-11-18] MEDS: Pantoprazole Inj IVP SCH (09:04)
--- NOTE | 2016-11-18 09:15 | General Progress Note ---
Assessment/Plan Assessment/Plan IMPRESSION: 1. Respiratory failure 2. Possible gastrostomy tube dislodgement. 3. Possible upper gastrointestinal bleeding. 4. anemia. 5. Known history of deep venous thrombosis on Coumadin. 6. Chronic encephalopathy. 7. Alcoholic liver disease 8. possible wound site infection PLAN feeds rectal tube maintain meds monitor for change control diarrhea IV cefepime ventilator management impression, plan, and exam edited and reviewed in detail care discussed with RN. Subjective ROS Limited/Unobtainable: Yes Allergies: Coded Allergies: CODEINE (Verified Allergy, Unknown, 11/15/16) Subjective awake has rectal tube, gt, ngt, rahman Objective Last 24 Hour Vital Signs Date Time Temp Pulse Resp B/P Pulse Ox O2 Delivery O2 Flow Rate FiO2 11/18/16 08:00 40 11/18/16 08:00 97.7 83 17 142/87 100 Mechanical Ventilator 40 11/18/16 07:24 80 16 100 Mechanical Ventilator 11/18/16 07:22 79 16 40 11/18/16 07:11 79 16 100 Mechanical Ventilator 40 11/18/16 05:19 87 31 40 11/18/16 04:11 40 11/18/16 04:00 98.3 72 17 122/88 100 Mechanical Ventilator 40 11/18/16 03:54 89 11/18/16 02:59 95 28 40 11/18/16 01:14 82 16 100 Mechanical Ventilator 11/18/16 01:01 63 16 100 Mechanical Ventilator 40 11/18/16 01:01 63 16 40 11/18/16 00:11 40 11/18/16 00:10 70 11/18/16 00:00 97.9 77 18 106/62 100 Mechanical Ventilator 40 11/17/16 23:08 67 16 40 11/17/16 21:06 87 17 40 11/17/16 20:00 76 11/17/16 20:00 40 11/17/16 20:00 97.7 67 16 114/78 100 Mechanical Ventilator 40 11/17/16 19:50 86 16 100 Mechanical Ventilator 11/17/16 19:27 68 16 100 Mechanical Ventilator 40 11/17/16 19:26 69 16 40 11/17/16 17:10 84 28 40 11/17/16 16:05 97.8 88 16 106/75 100 Mechanical Ventilator 40 11/17/16 16:00 40 11/17/16 16:00 97.9 98 18 119/77 100 Mechanical Ventilator 40 11/17/16 16:00 98 11/17/16 13:15 89 16 100 Mechanical Ventilator 11/17/16 13:10 88 16 100 Mechanical Ventilator 40 11/17/16 13:00 88 16 40 11/17/16 12:00 40 11/17/16 12:00 98.1 73 16 132/87 100 Mechanical Ventilator 40 11/17/16 12:00 77 11/17/16 10:54 91 16 40 Intake and Output 11/17/16 11/18/16 19:00 07:00 Intake Total 1420 ml 1530 ml Output Total 1700 ml 900 ml Balance -280 ml 630 ml Intake Oral 0 ml Free Water 50 ml IV Total 1050 ml 1100 ml Tube Feeding 240 ml 360 ml Other 80 ml 70 ml Output Urine Total 150 ml 500 ml Stool Total 50 ml 400 ml Other 1500 ml Laboratory Tests 11/18/16 03:40: Prothrombin Time 29.8H, Prothromb Time International Ratio 2.8H Height (Feet): 5 Height (Inches): 8.00 Weight (Pounds): 80 Objective GENERAL: A well-developed male, somewhat withdrawn but responds VITAL SIGNS: Stable. LUNGS: Otherwise clear. Tracheostomy in midline. Carotids 2+ CARDIAC: S1 and S2. Regular rate and rhythm. ABDOMEN: Soft and nondistended. G-tube noted. EXTREMITIES: No edema. Withdrawn. tubes in place EUSEBIO CRESPO Nov 18, 2016 09:15
[2016-11-18 11:48] VITALS: BP 131/84
[2016-11-18 16:00] VITALS: BP 134/94
[2016-11-18] MEDS ORDERED: Warfarin Sodium 2.5mg ORAL SCH (17:00)
[2016-11-18 20:00] VITALS: BP 137/92
[2016-11-18] MEDS ORDERED: Tigecycline 100 MG in D5W 110 ML IVPB ONE (20:00)
--- NOTE | 2016-11-18 23:36 | General Progress Note ---
Assessment/Plan Assessment/Plan Assessment - GT migration / complication - GT site bleeding - resolved - GT tract tunnel infection - dysphagia - anemia - anticoagulated Recommendation - OK to continue anticoagulation from GI standpoint - abx - systemic and topical - continue TF Subjective Allergies: Coded Allergies: CODEINE (Verified Allergy, Unknown, 11/15/16) Subjective uneventful night no UGI bleeding noted tolerating TF some GT site d/c Objective Last 24 Hour Vital Signs Date Time Temp Pulse Resp B/P Pulse Ox O2 Delivery O2 Flow Rate FiO2 11/18/16 23:17 92 18 40 11/18/16 21:23 75 16 40 11/18/16 20:00 40 11/18/16 20:00 98.8 104 24 137/92 100 Mechanical Ventilator 40 11/18/16 19:15 69 16 100 Mechanical Ventilator 11/18/16 19:13 73 11/18/16 19:12 64 16 40 11/18/16 19:12 69 16 100 Mechanical Ventilator 40 11/18/16 17:02 71 16 40 11/18/16 16:00 88 11/18/16 16:00 98.1 93 24 134/94 100 Mechanical Ventilator 40 11/18/16 16:00 40 11/18/16 15:10 97 26 40 11/18/16 13:01 95 22 100 Mechanical Ventilator 11/18/16 13:00 112 32 40 11/18/16 12:50 110 32 100 Mechanical Ventilator 40 11/18/16 12:00 40 11/18/16 12:00 101 11/18/16 11:48 98.2 83 21 131/84 100 Mechanical Ventilator 40 11/18/16 11:16 95 31 40 11/18/16 09:20 95 17 40 11/18/16 08:00 40 11/18/16 08:00 97.7 83 17 142/87 100 Mechanical Ventilator 40 11/18/16 08:00 85 11/18/16 07:24 80 16 100 Mechanical Ventilator 11/18/16 07:22 79 16 40 11/18/16 07:11 79 16 100 Mechanical Ventilator 40 11/18/16 05:19 87 31 40 11/18/16 04:11 40 11/18/16 04:00 98.3 72 17 122/88 100 Mechanical Ventilator 40 11/18/16 03:54 89 11/18/16 02:59 95 28 40 11/18/16 01:14 82 16 100 Mechanical Ventilator 11/18/16 01:01 63 16 100 Mechanical Ventilator 40 11/18/16 01:01 63 16 40 11/18/16 00:11 40 11/18/16 00:10 70 11/18/16 00:00 97.9 77 18 106/62 100 Mechanical Ventilator 40 Intake and Output 11/17/16 11/18/16 19:00 07:00 Intake Total 1420 ml 1630 ml Output Total 1700 ml 900 ml Balance -280 ml 730 ml Intake Oral 0 ml Free Water 50 ml IV Total 1050 ml 1200 ml Tube Feeding 240 ml 360 ml Other 80 ml 70 ml Output Urine Total 150 ml 500 ml Stool Total 50 ml 400 ml Other 1500 ml Laboratory Tests 11/18/16 03:40: Prothrombin Time 29.8H, Prothromb Time International Ratio 2.8H Height (Feet): 5 Height (Inches): 8.00 Weight (Pounds): 80 Objective Debilitated AA man NCAT supple CTA RRR Soft ND NT, GT site with some purulent drainage no edema restrained MANNY KAUR Nov 18, 2016 23:36
[2016-11-19] VITALS: BP 119/73
[2016-11-19] MEDS: DuoNeb 0.5-3(2.5)mg/3ml neb HHN SCH ×4 (01:02→19:03)
[2016-11-19] MEDS ORDERED: Milk of Magnesia 30ml Ud GT PRN (02:30)
[2016-11-19] MEDS: LORazepam 1mg tab GT PRN ×2 (03:10→09:39)
[2016-11-19 04:00] VITALS: BP 127/89
[2016-11-19 05:18] LABS: INR 2.5 (0.9-1.1); PROTHROMBIN TIME 26.3 SEC (9.30-11.50)
[2016-11-19 08:00] VITALS: BP 118/80
--- NOTE | 2016-11-19 08:38 | General Progress Note ---
Assessment/Plan Assessment/Plan IMPRESSION: 1. Respiratory failure 2. Possible gastrostomy tube dislodgement. 3. Possible upper gastrointestinal bleeding. 4. anemia. 5. Known history of deep venous thrombosis on Coumadin. 6. Chronic encephalopathy. 7. Alcoholic liver disease 8. possible wound site infection [facility] PLAN feeds rectal tube maintain meds monitor for change control diarrhea IV antibiotics adjusted ID appreciated finalize management ventilator management dc planning soon impression, plan, and exam edited and reviewed in detail care discussed with RN. Subjective ROS Limited/Unobtainable: Yes Allergies: Coded Allergies: CODEINE (Verified Allergy, Unknown, 11/15/16) Subjective awake has rectal tube, gt, ngt, rahman Objective Last 24 Hour Vital Signs Date Time Temp Pulse Resp B/P Pulse Ox O2 Delivery O2 Flow Rate FiO2 11/19/16 08:00 92 11/19/16 08:00 40 11/19/16 07:37 83 18 100 Mechanical Ventilator 11/19/16 07:30 82 18 100 Mechanical Ventilator 40 11/19/16 07:30 100 17 40 11/19/16 05:18 100 26 40 11/19/16 04:00 94 11/19/16 04:00 98.1 91 22 127/89 100 Mechanical Ventilator 40 11/19/16 04:00 40 11/19/16 03:27 75 18 40 11/19/16 01:21 80 18 100 Mechanical Ventilator 11/19/16 01:02 79 18 40 11/19/16 01:02 80 18 100 Mechanical Ventilator 40 11/19/16 00:31 68 11/19/16 00:00 40 11/19/16 00:00 98.4 75 17 119/73 100 Mechanical Ventilator 40 11/18/16 23:17 92 18 40 11/18/16 21:23 75 16 40 11/18/16 20:00 40 11/18/16 20:00 98.8 104 24 137/92 100 Mechanical Ventilator 40 11/18/16 19:15 69 16 100 Mechanical Ventilator 11/18/16 19:13 73 11/18/16 19:12 64 16 40 11/18/16 19:12 69 16 100 Mechanical Ventilator 40 11/18/16 17:02 71 16 40 11/18/16 16:00 88 11/18/16 16:00 98.1 93 24 134/94 100 Mechanical Ventilator 40 11/18/16 16:00 40 11/18/16 15:10 97 26 40 11/18/16 13:01 95 22 100 Mechanical Ventilator 11/18/16 13:00 112 32 40 11/18/16 12:50 110 32 100 Mechanical Ventilator 40 11/18/16 12:00 40 11/18/16 12:00 101 11/18/16 11:48 98.2 83 21 131/84 100 Mechanical Ventilator 40 11/18/16 11:16 95 31 40 11/18/16 09:20 95 17 40 Intake and Output 11/18/16 11/19/16 19:00 07:00 Intake Total 960 ml 1510 ml Output Total 875 ml 1200 ml Balance 85 ml 310 ml Free Water 150 ml IV Total 450 ml 1100 ml Tube Feeding 360 ml 410 ml Output Urine Total 675 ml 1000 ml Stool Total 200 ml 200 ml Laboratory Tests 11/19/16 04:15: Prothrombin Time 26.3H, Prothromb Time International Ratio 2.5H Height (Feet): 5 Height (Inches): 8.00 Weight (Pounds): 80 Objective GENERAL: A well-developed male, somewhat withdrawn but responds VITAL SIGNS: Stable. LUNGS: Otherwise clear. Tracheostomy in midline. Carotids 2+ CARDIAC: S1 and S2. Regular rate and rhythm. ABDOMEN: Soft and nondistended. G-tube noted. EXTREMITIES: No edema. Withdrawn. tubes in place EUSEBIO CRESPO Nov 19, 2016 08:38
[2016-11-19] MEDS ORDERED: Tigecycline 50 MG in D5W 110 ML IVPB SCH (09:00)
[2016-11-19] MEDS: Pantoprazole Inj IVP SCH (09:32)
[2016-11-19] MEDS: levETIRAcetam 500mg/5ml Liquid GT SCH ×2 (09:39→17:45)
[2016-11-19] MEDS: carBAMazepine 200mg tab GT SCH ×2 (09:40→17:45)
[2016-11-19] MEDS: Docusate 100mg tablet GT SCH (09:40)
[2016-11-19] MEDS: Ascorbic Acid 500mg tab GT SCH (09:40)
[2016-11-19] MEDS: Zinc Sulfate 220mg cap GT SCH (09:40)
[2016-11-19] MEDS: Lactulose 20gm/30ml UDC GT SCH (09:41)
[2016-11-19] MEDS: Multivitamins W/Minerals 15 ML UDC GT SCH (09:41)
[2016-11-19] MEDS: Polysporin Oint 30gm TOPIC SCH ×4 (09:42→20:43)
[2016-11-19] MEDS ORDERED: Tubing IV Secondary IV ONE (10:13)
[2016-11-19 12:00] VITALS: BP 127/81
[2016-11-19] MEDS: ceFAZolin sod 1 GM in NS 55 ML IVPB SCH ×2 (14:06→21:11)
[2016-11-19 16:00] VITALS: BP 125/78
[2016-11-19] MEDS: LORazepam Inj 2mg/ml 1ml IVP PRN ×2 (16:44→22:24)
[2016-11-19] MEDS: Colistin 150mg vial IVP SCH (16:48)
[2016-11-19] MEDS ORDERED: Warfarin Sodium 4mg PO ONE (17:00)
--- NOTE | 2016-11-19 17:58 | Consultation ---
DATE OF CONSULTATION: 11/19/2016 INFECTIOUS DISEASE CONSULTATION REFERRING PHYSICIAN: Gerber Shelton M.D. REASON FOR CONSULTATION: Possible G-tube site cellulitis. HISTORY OF PRESENTING ILLNESS: This is a 61-year-old gentleman with history of cirrhosis, seizures, encephalopathy, AND respiratory failure status post tracheostomy who came in with coffee-grounds emesis. There is a concern for GI bleeding. She was found to have some bleeding from the G-tube site that is resolved. An Infectious Diseases consultation has been obtained for antibiotics. PAST MEDICAL HISTORY: 1. History of cirrhosis. 2. Seizures. 3. Encephalopathy. 4. Respiratory failure, status post tracheostomy. 5. Status post G-tube placement. MEDICATIONS: As an inpatient, the patient is on warfarin, Tigecycline was started yesterday, ascorbic acid, carbamazepine, docusate, folic acid, Keppra, multivitamin, zinc sulfate, milk of magnesia, bacitracin, polymyxin ointment, Protonix, albuterol, Tylenol, lactulose, warfarin, lorazepam, albuterol and Atrovent. ALLERGIES: Codeine noted. SOCIAL HISTORY: Unknown. FAMILY HISTORY: Unknown. REVIEW OF SYSTEMS: Unable to obtain currently. PHYSICAL EXAMINATION: VITAL SIGNS: Temperature of 98.2 degrees, T-max of 98.8 degrees, pulse of 100, respiratory rate 17, blood pressure 118/80 and O2 saturation of 100%. HEENT: Pupils equally reactive to light and accommodation. Mouth appears clean without thrush. NECK: Supple. No adenopathy. No JVD. CARDIOVASCULAR: Regular rate and rhythm. No murmurs. LUNGS: Clear to auscultation bilaterally. No crackles. No wheezes. ABDOMEN: Soft and nontender. G-tube site with some drainage noted. No organomegaly. EXTREMITIES: No cyanosis, no clubbing, and no edema. LABORATORY AND DIAGNOSTIC DATA: White count of 13.1 on 11/15/2016. White count of 9 on 11/16/2016, hemoglobin 10.6, hematocrit 30.5, MCV 101, platelet count of 132,000 and neutrophils of 73%. Sodium 133, potassium 3.5, chloride 95, bicarbonate 24, BUN 26, creatinine 0.8 and glucose 106. Calcium 8.7. On 11/15/2016, total bilirubin 1.3, direct bilirubin 0.7. AST 33, ALT 19 and alkaline phosphatase 188. CK of 73. Troponin less than 0.3. Total protein 8.2. Albumin 3.9. Lipase of 23. Urinalysis showing 2 to 4 white cells. Stool for C. difficile was negative on 11/18/2016. On 11/16/2016 abdominal abscess culture is growing Klebsiella pneumonia, which is tigecycline resistant, cefepime resistant, ceftriaxone resistant, and imipenem resistant. Staph aureus is vancomycin susceptible, oxacillin susceptible and the steroids. CT abdomen and pelvis showing distended gas and fluid-filled small bowel loops extending to the terminal ileum. No pathology noted. Displacement of G-tube noted. No abscess. Cholelithiasis noted and diverticulosis noted. Left basal volume loss and consolidation noted. Possible bronchiectasis. ASSESSMENT: 1. This is a 61-year-old gentleman with history of seizures and cirrhosis, who comes in and is found to have a dislodged gastrostomy tube. The gastrostomy tube site infection appears to be improving. He has culture growing Staph aureus and Klebsiella pneumonia, which is carbapenem resistant. 2. Leukocytosis is improving. PLAN: 1. Discontinue tigecycline. 2. We will start the patient on Ancef and colistin. 3. We will follow up cultures. I would like to thank, Dr. Shelton, for this consultation. Juju Marques M.D. DR: RICK JOB#: [id number] CC: Gerber Shelton M.D.
[2016-11-19 20:49] VITALS: BP 137/81
[2016-11-20] VITALS: BP 157/70
[2016-11-20] MEDS: DuoNeb 0.5-3(2.5)mg/3ml neb HHN SCH ×4 (01:16→19:00)
[2016-11-20] MEDS: LORazepam Inj 2mg/ml 1ml IVP PRN ×3 (01:37→23:38)
[2016-11-20 04:00] VITALS: BP 152/155
[2016-11-20] MEDS: ceFAZolin sod 1 GM in NS 55 ML IVPB SCH ×3 (05:05→22:14)
[2016-11-20 05:28] LABS: INR 2.3 (0.9-1.1); PROTHROMBIN TIME 24.3 SEC (9.30-11.50)
--- NOTE | 2016-11-20 07:21 | General Progress Note ---
Assessment/Plan Assessment/Plan IMPRESSION: 1. Respiratory failure 2. Possible gastrostomy tube dislodgement. 3. Possible upper gastrointestinal bleeding. 4. anemia. 5. Known history of deep venous thrombosis on Coumadin. 6. Chronic encephalopathy. 7. Alcoholic liver disease 8. possible wound site infection [facility] PLAN feeds maintain meds monitor for change IV antibiotics adjusted ID appreciated finalize management ventilator management dc planning in am repeat labs prior to dc impression, plan, and exam edited and reviewed in detail care discussed with RN. Subjective ROS Limited/Unobtainable: Yes Allergies: Coded Allergies: CODEINE (Verified Allergy, Unknown, 11/15/16) Subjective awake agitated Objective Last 24 Hour Vital Signs Date Time Temp Pulse Resp B/P Pulse Ox O2 Delivery O2 Flow Rate FiO2 11/20/16 07:12 83 20 100 Mechanical Ventilator 11/20/16 07:02 88 19 40 11/20/16 07:02 82 20 100 Mechanical Ventilator 40 11/20/16 05:20 94 21 40 11/20/16 04:00 77 11/20/16 04:00 98.1 95 20 152/155 100 Mechanical Ventilator 40 11/20/16 04:00 40 11/20/16 03:29 78 16 40 11/20/16 01:22 85 17 100 Mechanical Ventilator 11/20/16 01:15 86 17 40 11/20/16 01:15 84 22 100 Mechanical Ventilator 40 11/20/16 00:00 97.7 89 22 157/70 100 Mechanical Ventilator 40 11/20/16 00:00 40 11/20/16 00:00 64 11/19/16 22:41 73 16 40 11/19/16 20:49 72 16 40 11/19/16 20:49 97.4 71 16 137/81 100 40 11/19/16 20:00 73 11/19/16 20:00 40 11/19/16 19:28 81 17 100 Mechanical Ventilator 11/19/16 19:02 76 16 100 Mechanical Ventilator 40 11/19/16 19:01 76 16 40 11/19/16 17:07 75 15 40 11/19/16 16:00 85 11/19/16 16:00 40 11/19/16 16:00 97.7 85 16 125/78 100 Mechanical Ventilator 40 11/19/16 15:09 103 32 40 11/19/16 12:43 78 16 100 Mechanical Ventilator 11/19/16 12:38 77 17 40 11/19/16 12:38 77 18 100 Mechanical Ventilator 40 11/19/16 12:06 81 11/19/16 12:06 40 11/19/16 12:00 97.7 72 16 127/81 100 Mechanical Ventilator 40 11/19/16 11:28 100 17 40 11/19/16 09:24 100 17 40 11/19/16 08:00 92 11/19/16 08:00 98.2 107 22 118/80 100 Mechanical Ventilator 40 11/19/16 08:00 40 11/19/16 07:37 83 18 100 Mechanical Ventilator 11/19/16 07:30 82 18 100 Mechanical Ventilator 40 11/19/16 07:30 100 17 40 Intake and Output 11/19/16 11/20/16 19:00 07:00 Intake Total 1890 ml 1946 ml Output Total 1400 ml 1500 ml Balance 490 ml 446 ml Free Water 200 ml 200 ml IV Total 1200 ml 1076 ml Tube Feeding 490 ml 670 ml Output Urine Total 1250 ml 1500 ml Stool Total 150 ml Laboratory Tests 11/20/16 04:15: Prothrombin Time 24.3H, Prothromb Time International Ratio 2.3H Height (Feet): 5 Height (Inches): 8.00 Weight (Pounds): 172 Objective GENERAL: A well-developed male, somewhat withdrawn but responds VITAL SIGNS: Stable. LUNGS: Otherwise clear. Tracheostomy in midline. Carotids 2+ CARDIAC: S1 and S2. Regular rate and rhythm. ABDOMEN: Soft and nondistended. G-tube noted. EXTREMITIES: No edema. Withdrawn. tubes in place EUSEBIO CRESPO Nov 20, 2016 07:21
[2016-11-20 08:19] VITALS: BP 125/74
[2016-11-20] MEDS: carBAMazepine 200mg tab GT SCH ×2 (09:09→18:00)
[2016-11-20] MEDS: levETIRAcetam 500mg/5ml Liquid GT SCH ×2 (09:09→18:00)
[2016-11-20] MEDS: Docusate 100mg tablet GT SCH (09:09)
[2016-11-20] MEDS: Pantoprazole Inj IVP SCH (09:09)
[2016-11-20] MEDS: Multivitamins W/Minerals 15 ML UDC GT SCH (09:09)
[2016-11-20] MEDS: Lactulose 20gm/30ml UDC GT SCH (09:09)
[2016-11-20] MEDS: Polysporin Oint 30gm TOPIC SCH ×4 (09:10→22:14)
[2016-11-20] MEDS: Zinc Sulfate 220mg cap GT SCH (09:10)
[2016-11-20] MEDS: Ascorbic Acid 500mg tab GT SCH (09:10)
[2016-11-20 09:44] LABS: BASOPHILS % (AUTO) 1.2 % (0.0-2.0); EOSINOPHILS % (AUTO) 2.4 % (0.0-3.0); MEAN CORPUSCULAR HEMOGLOBIN 33.5 PG (27.0-31.0); MEAN CORPUSCULAR HGB CONC 33.1 G/DL (32.0-36.0); MEAN CORPUSCULAR VOLUME 101 FL (80-99); MEAN PLATELET VOLUME 8.9 FL (6.5-10.1); NEUTROPHILS % (AUTO) 73.4 % (45.0-75.0); PLATELET COUNT 146 K/UL (150-450); RED BLOOD COUNT 3.38 M/UL (4.70-6.10); RED CELL DISTRIBUTION WIDTH 11.5 % (11.6-14.8); WHITE BLOOD COUNT 9.8 K/UL (4.8-10.8)
[2016-11-20 09:46] LABS: INR 2.4 (0.9-1.1); PROTHROMBIN TIME 25.6 SEC (9.30-11.50)
[2016-11-20 09:51] LABS: ALANINE AMINOTRANSFERASE 21 U/L (3-41); ALBUMIN/GLOBULIN RATIO 0.9 (1.0-2.7); ANION GAP 16 (5-15); ASPARTATE AMINO TRANSFERASE 32 U/L (5-40); CALCIUM 8.5 mg/dL (8.6-10.2); CARBON DIOXIDE 23 mEQ/L (20-30); CHLORIDE 100 mEQ/L (98-107); CREATININE 0.6 mg/dL (0.7-1.2); GLOMERULAR FILTRATION RATE > 60 mL/min (>60); HEMOLYSIS 24; POTASSIUM 2.9 mEQ/L (3.4-4.9); SODIUM 139 mEQ/L (135-145); TOTAL PROTEIN 6.3 g/dL (6.6-8.7)
[2016-11-20] MEDS: Colistin 150mg vial IVP SCH ×2 (10:42→21:00)
--- NOTE | 2016-11-20 11:25 | Infectious Diseases Prog Note ---
Assessment/Plan Assessment/Plan antibiotics : ancef, colistin iv A 1. GT site cellulitis 2. cirrhosis 3. seizures 4. leucocytosis improving 5. respiratory failure P 1. continue ancef, colistin iv until tomorrow 2. will follow up cultures Subjective ROS Limited/Unobtainable: Yes Allergies: Coded Allergies: CODEINE (Verified Allergy, Unknown, 11/15/16) Objective Vital Signs Last 24 Hour Vital Signs Date Time Temp Pulse Resp B/P Pulse Ox O2 Delivery O2 Flow Rate FiO2 11/20/16 08:46 87 18 40 11/20/16 08:19 97.5 72 20 125/74 100 Mechanical Ventilator 40 11/20/16 08:00 40 11/20/16 08:00 72 11/20/16 07:12 83 20 100 Mechanical Ventilator 11/20/16 07:02 88 19 40 11/20/16 07:02 82 20 100 Mechanical Ventilator 40 11/20/16 05:20 94 21 40 11/20/16 04:00 77 11/20/16 04:00 98.1 95 20 152/155 100 Mechanical Ventilator 40 11/20/16 04:00 40 11/20/16 03:29 78 16 40 11/20/16 01:22 85 17 100 Mechanical Ventilator 11/20/16 01:15 86 17 40 11/20/16 01:15 84 22 100 Mechanical Ventilator 40 11/20/16 00:00 97.7 89 22 157/70 100 Mechanical Ventilator 40 11/20/16 00:00 40 11/20/16 00:00 64 11/19/16 22:41 73 16 40 11/19/16 20:49 72 16 40 11/19/16 20:49 97.4 71 16 137/81 100 40 11/19/16 20:00 73 11/19/16 20:00 40 11/19/16 19:28 81 17 100 Mechanical Ventilator 11/19/16 19:02 76 16 100 Mechanical Ventilator 40 11/19/16 19:01 76 16 40 11/19/16 17:07 75 15 40 11/19/16 16:00 85 11/19/16 16:00 40 11/19/16 16:00 97.7 85 16 125/78 100 Mechanical Ventilator 40 11/19/16 15:09 103 32 40 11/19/16 12:43 78 16 100 Mechanical Ventilator 11/19/16 12:38 77 17 40 11/19/16 12:38 77 18 100 Mechanical Ventilator 40 11/19/16 12:06 81 11/19/16 12:06 40 11/19/16 12:00 97.7 72 16 127/81 100 Mechanical Ventilator 40 11/19/16 11:28 100 17 40 Height (Feet): 5 Height (Inches): 8.00 Weight (Pounds): 172 HEENT: status post trach Respiratory/Chest: lungs clear Cardiovascular: normal rate, regular rhythm, no gallop/murmur Abdomen: soft, non tender, other - GT Extremities: no edema Microbiology Date/Time Source Procedure Growth Status 11/18/16 15:10 Stool Clostridium difficile Toxin Assay - Final Complete Laboratory Tests Test 11/20/16 04:15 11/20/16 09:05 Prothrombin Time 24.3 SEC (9.30-11.50) H 25.6 SEC (9.30-11.50) H Prothromb Time International Ratio 2.3 (0.9-1.1) H 2.4 (0.9-1.1) H White Blood Count 9.8 K/UL (4.8-10.8) Red Blood Count 3.38 M/UL (4.70-6.10) L Hemoglobin 11.3 G/DL (14.2-18.0) L Hematocrit 34.2 % (42.0-52.0) L Mean Corpuscular Volume 101 FL (80-99) H Mean Corpuscular Hemoglobin 33.5 PG (27.0-31.0) H Mean Corpuscular Hemoglobin Concent 33.1 G/DL (32.0-36.0) Red Cell Distribution Width 11.5 % (11.6-14.8) L Platelet Count 146 K/UL (150-450) L Mean Platelet Volume 8.9 FL (6.5-10.1) Neutrophils (%) (Auto) 73.4 % (45.0-75.0) Lymphocytes (%) (Auto) 15.0 % (20.0-45.0) L Monocytes (%) (Auto) 8.0 % (1.0-10.0) Eosinophils (%) (Auto) 2.4 % (0.0-3.0) Basophils (%) (Auto) 1.2 % (0.0-2.0) Sodium Level 139 mEQ/L (135-145) Potassium Level 2.9 mEQ/L (3.4-4.9) L Chloride Level 100 mEQ/L (98-107) Carbon Dioxide Level 23 mEQ/L (20-30) Anion Gap 16 (5-15) H Blood Urea Nitrogen 5 mg/dL (7-23) L Creatinine 0.6 mg/dL (0.7-1.2) L Estimat Glomerular Filtration Rate > 60 mL/min (>60) Glucose Level 97 mg/dL (74-106) Calcium Level 8.5 mg/dL (8.6-10.2) L Total Bilirubin 0.8 mg/dL (0.0-1.2) Aspartate Amino Transf (AST/SGOT) 32 U/L (5-40) Alanine Aminotransferase (ALT/SGPT) 21 U/L (3-41) Alkaline Phosphatase 171 U/L (40-129) H Total Protein 6.3 g/dL (6.6-8.7) L Albumin 3.1 g/dL (3.5-5.2) L Globulin 3.2 g/dL Albumin/Globulin Ratio 0.9 (1.0-2.7) L Carbamazepine (Tegretol) Level 7.0 ug/mL (4.0-12.0) NIKOLAY MERCEDES Nov 20, 2016 11:25
[2016-11-20 12:20] VITALS: BP 122/70
[2016-11-20] MEDS: KCl 10% 40mEq/30ml liquid GT SCH ×2 (15:50→19:55)
[2016-11-20 16:09] VITALS: BP 113/74
[2016-11-20] MEDS ORDERED: Warfarin Sodium 4mg PO ONE (17:00)
[2016-11-20 20:00] VITALS: BP 130/84
--- NOTE | 2016-11-20 21:52 | General Progress Note ---
Assessment/Plan Assessment/Plan Assessment - GT migration / complication - GT site bleeding - resolved - GT tract tunnel infection - dysphagia - anemia - anticoagulated Recommendation - OK to continue anticoagulation from GI standpoint - abx - systemic and topical - continue TF Subjective Allergies: Coded Allergies: CODEINE (Verified Allergy, Unknown, 11/15/16) Subjective uneventful night no UGI bleeding noted tolerating TF agitated per RN trying to climb out of bed Objective Last 24 Hour Vital Signs Date Time Temp Pulse Resp B/P Pulse Ox O2 Delivery O2 Flow Rate FiO2 11/20/16 21:10 85 20 40 11/20/16 20:00 98.1 101 20 130/84 100 Mechanical Ventilator 11/20/16 19:40 106 18 100 Mechanical Ventilator 11/20/16 19:30 104 20 40 11/20/16 19:30 104 16 100 Mechanical Ventilator 40 11/20/16 16:09 97.5 75 17 113/74 100 Mechanical Ventilator 40 11/20/16 16:04 40 11/20/16 16:04 78 11/20/16 14:45 76 16 40 11/20/16 13:18 73 16 40 11/20/16 13:18 86 16 100 Mechanical Ventilator 40 11/20/16 13:18 82 16 100 Mechanical Ventilator 11/20/16 12:20 97.5 95 20 122/70 100 Mechanical Ventilator 40 11/20/16 12:20 40 11/20/16 12:20 79 11/20/16 10:49 88 18 40 11/20/16 08:46 87 18 40 11/20/16 08:19 97.5 72 20 125/74 100 Mechanical Ventilator 40 11/20/16 08:00 40 11/20/16 08:00 72 11/20/16 07:12 83 20 100 Mechanical Ventilator 11/20/16 07:02 88 19 40 11/20/16 07:02 82 20 100 Mechanical Ventilator 40 11/20/16 05:20 94 21 40 11/20/16 04:00 77 11/20/16 04:00 98.1 95 20 152/155 100 Mechanical Ventilator 40 11/20/16 04:00 40 11/20/16 03:29 78 16 40 11/20/16 01:22 85 17 100 Mechanical Ventilator 11/20/16 01:15 86 17 40 11/20/16 01:15 84 22 100 Mechanical Ventilator 40 11/20/16 00:00 97.7 89 22 157/70 100 Mechanical Ventilator 40 11/20/16 00:00 40 11/20/16 00:00 64 11/19/16 22:41 73 16 40 Intake and Output 11/19/16 11/20/16 19:00 07:00 Intake Total 1890 ml 1946 ml Output Total 1400 ml 1500 ml Balance 490 ml 446 ml Free Water 200 ml 200 ml IV Total 1200 ml 1076 ml Tube Feeding 490 ml 670 ml Output Urine Total 1250 ml 1500 ml Stool Total 150 ml Laboratory Tests 11/20/16 04:15: Prothrombin Time 24.3H, Prothromb Time International Ratio 2.3H 11/20/16 09:05: Prothrombin Time 25.6H, Prothromb Time International Ratio 2.4H, White Blood Count 9.8, Red Blood Count 3.38L, Hemoglobin 11.3L, Hematocrit 34.2L, Mean Corpuscular Volume 101H, Mean Corpuscular Hemoglobin 33.5H, Mean Corpuscular Hemoglobin Concent 33.1, Red Cell Distribution Width 11.5L, Platelet Count 146L , Mean Platelet Volume 8.9, Neutrophils (%) (Auto) 73.4, Lymphocytes (%) (Auto) 15.0L, Monocytes (%) (Auto) 8.0, Eosinophils (%) (Auto) 2.4, Basophils (%) (Auto ) 1.2, Sodium Level 139, Potassium Level 2.9L, Chloride Level 100, Carbon Dioxide Level 23, Anion Gap 16H, Blood Urea Nitrogen 5L, Creatinine 0.6L, Estimat Glomerular Filtration Rate > 60, Glucose Level 97, Calcium Level 8.5L, Total Bilirubin 0.8, Aspartate Amino Transf (AST/SGOT) 32, Alanine Aminotransferase (ALT/SGPT) 21, Alkaline Phosphatase 171H, Total Protein 6.3L, Albumin 3.1L, Globulin 3.2, Albumin/Globulin Ratio 0.9L, Carbamazepine (Tegretol ) Level 7.0 Height (Feet): 5 Height (Inches): 8.00 Weight (Pounds): 172 Objective Debilitated AA man NCAT supple CTA RRR Soft ND NT, GT site with some purulent drainage no edema restrained MANNY KAUR Nov 20, 2016 21:52
[2016-11-21] VITALS: BP 91/57
[2016-11-21] MEDS: DuoNeb 0.5-3(2.5)mg/3ml neb HHN SCH ×2 (01:19→07:24)
[2016-11-21 04:00] VITALS: BP 138/97
[2016-11-21] MEDS: ceFAZolin sod 1 GM in NS 55 ML IVPB SCH (05:23)
[2016-11-21 05:34] LABS: ANION GAP 13 (5-15); CALCIUM 8.5 mg/dL (8.6-10.2); CARBON DIOXIDE 23 mEQ/L (20-30); CHLORIDE 104 mEQ/L (98-107); CREATININE 0.5 mg/dL (0.7-1.2); GLOMERULAR FILTRATION RATE > 60 mL/min (>60); HEMOLYSIS 2; POTASSIUM 3.5 mEQ/L (3.4-4.9); SODIUM 140 mEQ/L (135-145)
[2016-11-21 05:40] LABS: INR 2.2 (0.9-1.1)
[2016-11-21 08:00] VITALS: BP 140/87
[2016-11-21] MEDS: LORazepam Inj 2mg/ml 1ml IVP PRN (08:08)
--- NOTE | 2016-11-21 08:42 | Cardiology Report ---
APPROVED REPORT EKG Measurement Heart [id number] Normal sinus rhythm Prolonged QT Abnormal ECG
[2016-11-21] MEDS: Polysporin Oint 30gm TOPIC SCH ×2 (09:28→14:00)
[2016-11-21] MEDS: Lactulose 20gm/30ml UDC GT SCH (09:29)
[2016-11-21] MEDS: Zinc Sulfate 220mg cap GT SCH (09:29)
[2016-11-21] MEDS: Ascorbic Acid 500mg tab GT SCH (09:29)
[2016-11-21] MEDS: carBAMazepine 200mg tab GT SCH (09:29)
[2016-11-21] MEDS: Pantoprazole Inj IVP SCH (09:29)
[2016-11-21] MEDS: Docusate 100mg tablet GT SCH (09:29)
--- NOTE | 2016-11-21 09:29 | General Progress Note ---
Assessment/Plan Assessment/Plan IMPRESSION: 1. Respiratory failure 2. Possible gastrostomy tube dislodgement. 3. Possible upper gastrointestinal bleeding. 4. anemia. 5. Known history of deep venous thrombosis on Coumadin. 6. Chronic encephalopathy. 7. Alcoholic liver disease 8. possible wound site infection [facility] PLAN feeds maintain meds monitor for change IV antibiotics until am ID appreciated finalize management ventilator management dc planning today repeat labs noted impression, plan, and exam edited and reviewed in detail care discussed with RN. Subjective Allergies: Coded Allergies: CODEINE (Verified Allergy, Unknown, 11/15/16) Subjective resting not agitated Objective Last 24 Hour Vital Signs Date Time Temp Pulse Resp B/P Pulse Ox O2 Delivery O2 Flow Rate FiO2 11/21/16 08:42 82 18 40 11/21/16 08:00 98.3 94 19 140/87 100 Mechanical Ventilator 40 11/21/16 07:35 85 16 100 Mechanical Ventilator 11/21/16 07:25 40 11/21/16 07:25 86 18 40 11/21/16 07:25 86 16 100 Mechanical Ventilator 15.0 40 11/21/16 05:27 80 18 40 11/21/16 04:00 40 11/21/16 04:00 97.8 77 20 138/97 100 Mechanical Ventilator 11/21/16 04:00 87 11/21/16 03:13 82 22 40 11/21/16 01:26 82 17 100 Mechanical Ventilator 11/21/16 01:18 86 16 100 Mechanical Ventilator 40 11/21/16 01:17 86 21 40 11/21/16 00:00 40 11/21/16 00:00 97.6 77 20 91/57 99 Mechanical Ventilator 11/20/16 23:13 96 35 40 11/20/16 21:10 85 20 40 11/20/16 20:00 40 11/20/16 20:00 98.1 101 20 130/84 100 Mechanical Ventilator 11/20/16 20:00 74 11/20/16 19:40 106 18 100 Mechanical Ventilator 11/20/16 19:30 104 20 40 11/20/16 19:30 104 16 100 Mechanical Ventilator 40 11/20/16 16:09 97.5 75 17 113/74 100 Mechanical Ventilator 40 11/20/16 16:04 40 11/20/16 16:04 78 11/20/16 14:45 76 16 40 11/20/16 13:18 73 16 40 11/20/16 13:18 86 16 100 Mechanical Ventilator 40 11/20/16 13:18 82 16 100 Mechanical Ventilator 11/20/16 12:20 97.5 95 20 122/70 100 Mechanical Ventilator 40 11/20/16 12:20 40 11/20/16 12:20 79 11/20/16 10:49 88 18 40 Intake and Output 11/20/16 11/21/16 18:59 06:59 Intake Total 1120 ml 1920 ml Output Total 1950 ml 650 ml Balance -830 ml 1270 ml Free Water 300 ml IV Total 100 ml 1200 ml Tube Feeding 720 ml 720 ml Output Urine Total 1800 ml 650 ml Stool Total 150 ml Laboratory Tests 11/21/16 04:30: Prothrombin Time 23.0H, Prothromb Time International Ratio 2.2H, Sodium Level 140, Potassium Level 3.5, Chloride Level 104, Carbon Dioxide Level 23, Anion Gap 13, Blood Urea Nitrogen 3L, Creatinine 0.5L, Estimat Glomerular Filtration Rate > 60, Glucose Level 96, Calcium Level 8.5L Height (Feet): 5 Height (Inches): 8.00 Weight (Pounds): 172 Objective GENERAL: A well-developed male, somewhat withdrawn but responds VITAL SIGNS: Stable. LUNGS: Otherwise clear. Tracheostomy in midline. Carotids 2+ CARDIAC: S1 and S2. Regular rate and rhythm. ABDOMEN: Soft and nondistended. G-tube noted. EXTREMITIES: No edema. Withdrawn. tubes in place EUSEBIO CRESPO Nov 21, 2016 09:29
[2016-11-21] MEDS: Multivitamins W/Minerals 15 ML UDC GT SCH (09:30)
[2016-11-21] MEDS: Colistin 150mg vial IVP SCH (09:41)
[2016-11-21] MEDS: levETIRAcetam 500mg/5ml Liquid GT SCH (10:51)
--- NOTE | 2016-11-21 11:26 | Infectious Diseases Prog Note ---
Assessment/Plan Assessment/Plan antibiotics : ancef, colistin iv A 1. GT site cellulitis s/p rx 2. cirrhosis 3. seizures 4. leucocytosis improving 5. respiratory failure P 1. d/c ancef, colistin 2. observe off antibiotics Subjective ROS Limited/Unobtainable: Yes Allergies: Coded Allergies: CODEINE (Verified Allergy, Unknown, 11/15/16) Objective Vital Signs Last 24 Hour Vital Signs Date Time Temp Pulse Resp B/P Pulse Ox O2 Delivery O2 Flow Rate FiO2 11/21/16 10:35 80 21 40 11/21/16 08:42 82 18 40 11/21/16 08:00 98.3 94 19 140/87 100 Mechanical Ventilator 40 11/21/16 07:35 85 16 100 Mechanical Ventilator 11/21/16 07:25 40 11/21/16 07:25 86 18 40 11/21/16 07:25 86 16 100 Mechanical Ventilator 15.0 40 11/21/16 05:27 80 18 40 11/21/16 04:00 40 11/21/16 04:00 97.8 77 20 138/97 100 Mechanical Ventilator 11/21/16 04:00 87 11/21/16 03:13 82 22 40 11/21/16 01:26 82 17 100 Mechanical Ventilator 11/21/16 01:18 86 16 100 Mechanical Ventilator 40 11/21/16 01:17 86 21 40 11/21/16 00:00 40 11/21/16 00:00 97.6 77 20 91/57 99 Mechanical Ventilator 11/20/16 23:13 96 35 40 11/20/16 21:10 85 20 40 11/20/16 20:00 40 11/20/16 20:00 98.1 101 20 130/84 100 Mechanical Ventilator 11/20/16 20:00 74 11/20/16 19:40 106 18 100 Mechanical Ventilator 11/20/16 19:30 104 20 40 11/20/16 19:30 104 16 100 Mechanical Ventilator 40 11/20/16 16:09 97.5 75 17 113/74 100 Mechanical Ventilator 40 11/20/16 16:04 40 11/20/16 16:04 78 11/20/16 14:45 76 16 40 11/20/16 13:18 73 16 40 11/20/16 13:18 86 16 100 Mechanical Ventilator 40 4/11/17 13:18 82 16 100 Mechanical Ventilator 11/20/16 12:20 97.5 95 20 122/70 100 Mechanical Ventilator 40 11/20/16 12:20 40 11/20/16 12:20 79 Height (Feet): 5 Height (Inches): 8.00 Weight (Pounds): 172 HEENT: status post trach Respiratory/Chest: lungs clear Cardiovascular: normal rate, regular rhythm, no gallop/murmur Abdomen: soft, non tender, other - GT Extremities: no edema Microbiology Date/Time Source Procedure Growth Status 11/18/16 15:10 Stool Clostridium difficile Toxin Assay - Final Complete Laboratory Tests Test 11/21/16 04:30 Prothrombin Time 23.0 SEC (9.30-11.50) H Prothromb Time International Ratio 2.2 (0.9-1.1) H Sodium Level 140 mEQ/L (135-145) Potassium Level 3.5 mEQ/L (3.4-4.9) Chloride Level 104 mEQ/L (98-107) Carbon Dioxide Level 23 mEQ/L (20-30) Anion Gap 13 (5-15) Blood Urea Nitrogen 3 mg/dL (7-23) L Creatinine 0.5 mg/dL (0.7-1.2) L Estimat Glomerular Filtration Rate > 60 mL/min (>60) Glucose Level 96 mg/dL (74-106) Calcium Level 8.5 mg/dL (8.6-10.2) NIKOLAY ROBERTS Nov 21, 2016 11:26
[2016-11-21 12:00] VITALS: BP 146/97
[2016-11-21] MEDS ORDERED: Sterile Water Irrig 1000ml IRRIG ONE (14:49)
[2016-11-21] MEDS ORDERED: Warfarin Sodium 4mg PO SCH (17:00)
--- NOTE | 2016-11-21 22:47 | General Progress Note ---
Assessment/Plan Assessment/Plan Assessment - GT migration / complication - GT site bleeding - resolved - GT tract tunnel infection - dysphagia - anemia - anticoagulated Recommendation - OK to continue anticoagulation from GI standpoint - abx - systemic and topical - continue TF Subjective Allergies: Coded Allergies: CODEINE (Verified Allergy, Unknown, 11/15/16) Subjective uneventful night no UGI bleeding noted tolerating TF Objective Last 24 Hour Vital Signs Date Time Temp Pulse Resp B/P Pulse Ox O2 Delivery O2 Flow Rate FiO2 11/21/16 14:32 81 18 40 11/21/16 13:09 76 20 40 11/21/16 12:13 40 11/21/16 12:00 98.5 90 24 146/97 100 Mechanical Ventilator 40 11/21/16 12:00 84 11/21/16 10:35 80 21 40 11/21/16 08:42 82 18 40 11/21/16 08:00 40 11/21/16 08:00 79 11/21/16 08:00 98.3 94 19 140/87 100 Mechanical Ventilator 40 11/21/16 07:35 85 16 100 Mechanical Ventilator 11/21/16 07:25 40 11/21/16 07:25 86 18 40 11/21/16 07:25 86 16 100 Mechanical Ventilator 15.0 40 11/21/16 05:27 80 18 40 11/21/16 04:00 40 11/21/16 04:00 97.8 77 20 138/97 100 Mechanical Ventilator 11/21/16 04:00 87 11/21/16 03:13 82 22 40 11/21/16 01:26 82 17 100 Mechanical Ventilator 11/21/16 01:18 86 16 100 Mechanical Ventilator 40 11/21/16 01:17 86 21 40 11/21/16 00:00 40 11/21/16 00:00 97.6 77 20 91/57 99 Mechanical Ventilator 11/20/16 23:13 96 35 40 Intake and Output 11/20/16 11/21/16 19:00 07:00 Intake Total 1120 ml 1920 ml Output Total 1950 ml 650 ml Balance -830 ml 1270 ml Free Water 300 ml IV Total 100 ml 1200 ml Tube Feeding 720 ml 720 ml Output Urine Total 1800 ml 650 ml Stool Total 150 ml Laboratory Tests 11/21/16 04:30: Prothrombin Time 23.0H, Prothromb Time International Ratio 2.2H, Sodium Level 140, Potassium Level 3.5, Chloride Level 104, Carbon Dioxide Level 23, Anion Gap 13, Blood Urea Nitrogen 3L, Creatinine 0.5L, Estimat Glomerular Filtration Rate > 60, Glucose Level 96, Calcium Level 8.5L Height (Feet): 5 Height (Inches): 8.00 Weight (Pounds): 172 Objective Debilitated AA man NCAT supple CTA RRR Soft ND NT, GT site with some purulent drainage no edema restrained MANNY KAUR Nov 21, 2016 22:47
--- NOTE | 2016-11-22 14:52 | Discharge Summary ---
Discharge Summary Hospital Course Date of Admission Nov 15, 2016 at 22:45 Date of Discharge Nov 21, 2016 at 14:50 Admitting Diagnosis UGIB HPI Francesco Rowan is a 61 year old male who was admitted on Nov 15, 2016 at 22:45 for Upper Gastrointestinal Bleeding Hospital Course job #[id number] Discharge Discharge Disposition Patient was discharged to SNF/Subacute Facility(03) Discharge Diagnoses: Seda Salazar NP Nov 22, 2016 14:52
--- NOTE | 2016-11-23 02:48 | Discharge Summary 2 SIG ---
DATE OF ADMISSION: 11/15/2016 DATE OF DISCHARGE: 11/21/2016 CONSULTANTS: 1. Jacob Farmer M.D. 2. Juju Marques M.D. BRIEF HOSPITAL COURSE: The patient is a 61-year-old male, who presented to ED for possible GI bleed described as coffee ground emesis with abdominal distention. The patient was brought into the emergency room for concerns that G-tube was not adequately located in the stomach. He has a history of chronic respiratory failure on tracheostomy and ventilator. On evaluation at ED, CAT scan of the abdomen and pelvis showed fluid filled bowel without transition point with no obvious obstruction. It also showed displacement of gastrostomy tube tip and the balloon, is located in the subcutaneous fat superficial to the stomach. There was no evidence of associated abscess. The patient was admitted for further evaluation and management. Feedings were initially placed on hold and was given IV hydration. Dr. Farmer was consulted. The gastrostomy tube was removed at bedside with some food like material and blood-tinged discharge came out from the gastrostomy site. The site was cleaned and flushed with saline. A 16-Yi Barroso catheter was placed to gravity. The tip of the balloon was inflated and position was verified by bedside technique. It was again changed to a 20-gauge Yi replacement catheter with purulent discharge noted coming out from the G-tube site. Tube feedings were started and was tolerating feeding. Dr. Marques was consulted for antibiotic management of the G-tube tract tunnel infection. He was given Ancef and Colistin. Gram-stain from G-tube site showed growth of KPC with diphtheroids and Staphylococcus aureus. The patient was continued on anticoagulation with warfarin secondary to old DVT. There has been no gastrointestinal bleeding noted. The patient was discharged back to detention. FINAL DIAGNOSES: 1. Possible gastrointestinal bleed. 2. Gastrostomy tube dislodgement/dislocation. 3. Chronic respiratory failure on tracheostomy and ventilator. 4. 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 5. Gastrostomy tube site cellulitis. 6. Alcoholic liver disease. 7. Wound infection with Klebsiella Pneumoniae Carbapenem. 8. Left buttock pressure ulcer stage III, present on admission. Gerber Shelton M.D. I have been assigned to dictate discharge summary on this account and I was not involved in the patient's management. Seda Salazar N.P. DR: ALMA JOB#: [id number] CC: RICH
== END 2016-11-21 14:50 | DRG 253 ==
LOC: ENRESERVTM → ENRESERVDT → EDUNIT# 18:40 → EDBD 18:40 → EMR 19:47 → EDBEDREQ 22:05 → 2W 22:45
PROC: 5A1955Z Respiratory Ventilation, Greater than 96 Consecutive Hours (ICD-10-PCS; principal; 2016-11-15)
PROC: 0D20XUZ Change Feeding Device in Upper Intestinal Tract, External Approach (ICD-10-PCS; 2016-11-16)
DX: K92.2 Gastrointestinal hemorrhage, unspecified (principal); G93.49 Other encephalopathy; J96.10 Chronic respiratory failure, unspecified whether with hypoxia or hypercapnia; L89.323 Pressure ulcer of left buttock, stage 3; Z43.0 Encounter for attention to tracheostomy; K70.9 Alcoholic liver disease, unspecified; I10 Essential (primary) hypertension; G40.909 Epilepsy, unspecified, not intractable, without status epilepticus; D64.9 Anemia, unspecified; Z86.718 Personal history of other venous thrombosis and embolism; E86.0 Dehydration; Z43.1 Encounter for attention to gastrostomy; K94.29 Other complications of gastrostomy; L03.311 Cellulitis of abdominal wall; Y83.3 Surgical operation with formation of external stoma as the cause of abnormal reaction of the patient, or of later complication, without mention of misadventure at the time of the procedure; B96.1 Klebsiella pneumoniae [K. pneumoniae] as the cause of diseases classified elsewhere; I82.509 Chronic embolism and thrombosis of unspecified deep veins of unspecified lower extremity; Z79.01 Long term (current) use of anticoagulants; F10.21 Alcohol dependence, in remission; Z88.6 Allergy status to analgesic agent; K80.20 Calculus of gallbladder without cholecystitis without obstruction; K57.90 Diverticulosis of intestine, part unspecified, without perforation or abscess without bleeding
CPT/HCPCS: 36415; 74000; 74177; 80048; 80053; 80156; 80299; 81003; 82248; 82550; 82553; 83690; 84484; 85025; 85610; 87070; 87081; 87181; 87205; 87324; 93005; 94002; 94003; 94640; J2405; J7620

== ENCOUNTER 2016-12-12 21:20 | Emergency (ER) | payer MEDICAID, OTHER ==
[~2016-12-12] VITALS: Ht 185.4 cm; Wt 72.6 kg
[2016-12-12 21:20] VITALS: BP 103/72
[~2016-12-12 21:20] MED LIST changes: +ATIVAN1 MG GT; +COLACE100 MG GT; +MILK OF MA400 MG/51 GT; +PROMOD946 ML GT; +VITAMIN C500 M1 GT; +ZINC SULFATE220 M1 GT
[2016-12-12] MEDS ORDERED: PROTONIX40 MG ORAL (21:45)
[2016-12-12 22:42] LABS: BASOPHILS % (AUTO) 1.8 % (0.0-2.0); EOSINOPHILS % (AUTO) 2.1 % (0.0-3.0); LYMPHOCYTES % (AUTO) 25.2 % (20.0-45.0); MEAN CORPUSCULAR HEMOGLOBIN 33.8 PG (27.0-31.0); MEAN CORPUSCULAR HGB CONC 34.3 G/DL (32.0-36.0); MEAN CORPUSCULAR VOLUME 99 FL (80-99); MEAN PLATELET VOLUME 9.6 FL (6.5-10.1); MONOCYTES % (AUTO) 7.8 % (1.0-10.0); NEUTROPHILS % (AUTO) 63.2 % (45.0-75.0); PLATELET COUNT 166 K/UL (150-450); RED BLOOD COUNT 3.56 M/UL (4.70-6.10); RED CELL DISTRIBUTION WIDTH 12.3 % (11.6-14.8); WHITE BLOOD COUNT 8.5 K/UL (4.8-10.8)
[2016-12-12 22:59] LABS: TROPONIN I < 0.30 ng/mL (<=0.30)
[2016-12-12 23:01] LABS: ALBUMIN/GLOBULIN RATIO 0.7 (1.0-2.7); CALCIUM 9.7 mg/dL (8.6-10.2); CREATININE 2.6 mg/dL (0.7-1.2); GLOMERULAR FILTRATION RATE 30.4 mL/min (>60); POTASSIUM 4.6 mEQ/L (3.4-4.9)
[2016-12-12 23:11] LABS: CKMB 2.1 ng/mL (< 6.7)
[2016-12-12 23:20] VITALS: BP 107/78
[2016-12-12 23:40] LABS: APPEARANCE,URINE CLEAR; KETONES,URINE NEGATIVE (NEGATIVE); LEUKOCYTE ESTERASE ,URINE 1+ (NEGATIVE); NITRITE,URINE NEGATIVE (NEGATIVE); PH,URINE 6 (4.5-8.0); PROTEIN,URINE 2+ (NEGATIVE); UROBILINOGEN,URINE NORMAL MG/DL (0.0-1.0)
[2016-12-12 23:44] LABS: SQUAMOUS EPITHELIAL CELL,UR FEW /LPF (NONE/OCC)
[2016-12-13 00:29] VITALS: BP 112/79
[2016-12-13 02:29] VITALS: BP 102/70
--- NOTE | 2016-12-13 04:15 | Emergency Room Report ---
History of Present Illness General Chief Complaint: Abnormal Labs Source: Patient, Medical Record Present Illness HPI The patient is a 61-year-old male sent in by EMS after abnormal laboratory studies. Patient had prior history of tracheostomy and ventilator dependence. Patient had recently been hospitalized and was staying at a nursing facility. The patient been having any fever. Allergies: Coded Allergies: CODEINE (Verified Allergy, Unknown, 11/15/16) Patient History Reviewed Nursing Documentation: PMH: Agreed, PSxH: Agreed Nursing Documentation-PMH Past Medical History: No History, Except For Hx Cardiac Problems: Yes - alcoholic liver disease Hx Hypertension: Yes Hx Cancer: Yes Hx Gastrointestinal Problems: Yes - Alcoholic Liver disease, encephalopathy Hx Seizures: Yes Physical Exam Vital Signs Date Time Temp Pulse Resp B/P Pulse Ox O2 Delivery O2 Flow Rate FiO2 12/12/16 21:13 98.6 78 20 103/72 100 12/12/16 21:20 Mechanical Ventilator 15.0 40 Sp02 EP Interpretation: normal General Appearance: alert Eyes: bilateral eye PERRL Neck: supple Respiratory: chest non-tender, normal breath sounds Cardiovascular #1: normal peripheral pulses, regular rate, rhythm, no edema Gastrointestinal: other - gtube site CDI Musculoskeletal: normal inspection, normal range of motion Neurologic: alert, human resources operations director III-XII nml as tested Skin: normal inspection Medical Decision Making Diagnostic Impression: Primary Impression: Acute urinary retention ER Course Patient presented for abnormal laboratory testing. The differential diagnosis included wasn't limited to the prerenal vs intrarenal vs postrenal injury. Barroso catheter was placed. The patient noted have initial abdominal distention. This had resolved after catheter placement. Laboratory testing was unchanged from previous labs. Dr. Shelton was contacted and he stated he would perform further workup at facility. Labs Test 12/12/16 22:16 12/12/16 23:11 White Blood Count 8.5 K/UL (4.8-10.8) Red Blood Count 3.56 M/UL (4.70-6.10) Hemoglobin 12.0 G/DL (14.2-18.0) Hematocrit 35.1 % (42.0-52.0) Mean Corpuscular Volume 99 FL (80-99) Mean Corpuscular Hemoglobin 33.8 PG (27.0-31.0) Mean Corpuscular Hemoglobin Concent 34.3 G/DL (32.0-36.0) Red Cell Distribution Width 12.3 % (11.6-14.8) Platelet Count 166 K/UL (150-450) Mean Platelet Volume 9.6 FL (6.5-10.1) Neutrophils (%) (Auto) 63.2 % (45.0-75.0) Lymphocytes (%) (Auto) 25.2 % (20.0-45.0) Monocytes (%) (Auto) 7.8 % (1.0-10.0) Eosinophils (%) (Auto) 2.1 % (0.0-3.0) Basophils (%) (Auto) 1.8 % (0.0-2.0) Sodium Level 134 mEQ/L (135-145) Potassium Level 4.6 mEQ/L (3.4-4.9) Chloride Level 92 mEQ/L (98-107) Carbon Dioxide Level 24 mEQ/L (20-30) Anion Gap 18 (5-15) Blood Urea Nitrogen 33 mg/dL (7-23) Creatinine 2.6 mg/dL (0.7-1.2) Estimat Glomerular Filtration Rate 30.4 mL/min (>60) Glucose Level 90 mg/dL (74-106) Lactic Acid Level 1.60 mmol/L (0.66-2.22) Calcium Level 9.7 mg/dL (8.6-10.2) Total Bilirubin 0.5 mg/dL (0.0-1.2) Aspartate Amino Transf (AST/SGOT) 55 U/L (5-40) Alanine Aminotransferase (ALT/SGPT) 29 U/L (3-41) Alkaline Phosphatase 240 U/L (40-129) Total Creatine Kinase 131 U/L (38-174) Creatine Kinase MB 2.1 ng/mL (< 6.7) Creatine Kinase MB Relative Index 1.6 Troponin I < 0.30 ng/mL (<=0.30) Pro-B-Type Natriuretic Peptide 101 pg/mL (0-125) Total Protein 8.0 g/dL (6.6-8.7) Albumin 3.4 g/dL (3.5-5.2) Globulin 4.6 g/dL Albumin/Globulin Ratio 0.7 (1.0-2.7) Urine Color Pale yellow Urine Appearance Clear Urine pH 6 (4.5-8.0) Urine Specific [place] 1.010 (1.005-1.035) Urine Protein 2+ (NEGATIVE) Urine Glucose (UA) Negative (NEGATIVE) Urine Ketones Negative (NEGATIVE) Urine Occult Blood 2+ (NEGATIVE) Urine Nitrite Negative (NEGATIVE) Urine Bilirubin Negative (NEGATIVE) Urine Urobilinogen Normal MG/DL (0.0-1.0) Urine Leukocyte Esterase 1+ (NEGATIVE) Urine RBC 2-4 /HPF (0 - 0) Urine WBC 2-4 /HPF (0 - 0) Urine Squamous Epithelial Cells Few /LPF (NONE/OCC) Urine Bacteria None /HPF (NONE) EKG Diagnostic Results Rate: normal - 72 Rhythm: NSR ST Segments: no acute changes Rhythm Strip Diag. Results EP Interpretation: yes Rhythm: NSR - 67, no PVC's, no ectopy Last Vital Signs Date Time Temp Pulse Resp B/P Pulse Ox O2 Delivery O2 Flow Rate FiO2 12/13/16 03:16 102 16 40 12/13/16 02:29 98.5 102/70 99 Mechanical Ventilator 15.0 Status: improved Disposition: ER SNF Condition: Stable Patient Instructions: Acute Urinary Retention, Male Syed Uriostegui December 13, 2016 04:15
[2016-12-13 04:29] VITALS: BP 111/74
[2016-12-13 06:29] VITALS: BP 104/45
[2016-12-13] MEDS ORDERED: carBAMazepine 200mg tab GT STA (07:45)
[2016-12-13] MEDS ORDERED: levETIRAcetam 500mg/5ml Liquid GT STA (07:45)
[2016-12-13 08:39] VITALS: BP 117/75
--- NOTE | 2016-12-13 09:20 | Diagnostic Imaging Report ---
Indications: Altered mental status Technique: Continuous helical CT imaging of the brain was performed with nonionic exposure control on a Siemens sensation [address] scanner. Axial and coronal images were reconstructed at 5 mm slice thickness and interval. CTDI volume(s): 70 mGy Total DLP: 1499 mGy-cm Findings: Comparison: None Confluent low attenuation is present throughout the bilateral periventricular and deep cerebral white matter. Ventricles, cisterns, and sulci are diffusely prominent. No evidence of mass or hemorrhage, mass effect, midline shift, hydrocephalus, or increased intracranial pressure. Bone window images are unremarkable. Bilateral mastoid air cells partially opacified. Visualized paranasal sinuses are clear. Focal swelling and increased attenuation high left frontoparietal scalp. IMPRESSION: Left frontoparietal scalp swelling, nonspecific, acuity indeterminate No evidence of acute injury or other acute intracranial pathology Bilateral cerebral periventricular and deepwhite matter low attenuation, nonspecific, likely chronic microvascular ischemic in nature. Diffuse atrophy, prominent for age. Bilateral mastoid air cell partial opacification--developmental and/or inflammatory This correlates with preliminary report generated overnight by [employer]. The CT scanner at [facility] is accredited by the [place] and the scans are performed using protocols designed to limit radiation exposure to as low as reasonably achievable to attain images of sufficient resolution adequate for diagnostic evaluation.
[2016-12-13 10:09] VITALS: BP 117/75
--- NOTE | 2016-12-13 12:39 | Diagnostic Imaging Report ---
Indications: Shortness of breath Technique: Portable AP chest Findings: Comparison: 10/25/16 Pulmonary inflation remains suboptimal. Cardiac silhouette remains enlarged. Pulmonary vasculature within normal limits. Mild hazy opacity persists over lateral left lung base. Visualized portions of right lung and pleura remain clear. Tracheostomy tube remains in place. IMPRESSION: Persistent hazy left basal opacity may be parenchymal or pleural in nature, unchanged No new abnormality
--- NOTE | 2016-12-13 15:58 | Cardiology Report ---
APPROVED REPORT EKG Measurement Heart [id number] Normal sinus rhythm Low voltage QRS Cannot rule out Anterior infarct, age undetermined Abnormal ECG
== END 2016-12-13 10:09 ==
LOC: EDBD 21:20 → EMR 21:55
DX: R33.9 Retention of urine, unspecified (principal); K70.9 Alcoholic liver disease, unspecified; G93.40 Encephalopathy, unspecified; I10 Essential (primary) hypertension; G40.909 Epilepsy, unspecified, not intractable, without status epilepticus; Z88.5 Allergy status to narcotic agent; Z99.11 Dependence on respirator [ventilator] status
CPT/HCPCS: 36415; 70450; 71010; 80053; 81003; 82550; 82553; 83605; 83880; 84484; 85025; 87040; 93005; 94002; 94003; 99283

== ENCOUNTER 2017-01-02 02:15 | Inpatient (IN) | payer MEDICAID, OTHER ==
[2017-01-02] VITALS (9 sets, daily range): BP systolic 85–115; BP diastolic 53–88
[~2017-01-02] VITALS: Ht 162.6 cm; Wt 81.6 kg
[~2017-01-02 02:15] MED LIST changes: +MULTIVITAMINS1 EAC8 GT; -MULTIVITAMINS1 EAC8 ORAL; +PROTONIX40 MG ORAL
[2017-01-02] MEDS ORDERED: Acetaminophen 650 MG SUPP RECTAL ONE (02:30)
--- NOTE | 2017-01-02 02:36 | Emergency Room Report ---
History of Present Illness General Chief Complaint: Altered Level of Consciousness Source: Medical Record, EMS Present Illness ADMON Monsalve is a 61-[facility]-old [facility] patient with a history of been dependent respiratory failure. He also has anoxic brain injury. He presents with chief when a fever and altered mental status. Decreased oxygenation. Onset for one day. History is through the [facility] note and EMS. Allergies: Coded Allergies: CODEINE (Verified Allergy, Unknown, 11/15/16) Patient History Past Medical History: see triage record, old chart reviewed, pneumonia, seizures Past Surgical History: other Pertinent Family History: none Social History: Denies: smoking Immunizations: other Reviewed Nursing Documentation: PMH: Agreed, PSxH: Agreed Nursing Documentation-PMH Hx Cardiac Problems: Yes - alcoholic liver disease Hx Hypertension: Yes Hx Cancer: Yes Review of Systems Constitutional: Reports: fever Respiratory: Reports: cough, shortness of breath All Other Systems: limited - Because of his condition the patient is nonverbal Physical Exam Vital Signs Date Time Temp Pulse Resp B/P Pulse Ox O2 Delivery O2 Flow Rate FiO2 01/02/17 02:08 98.8 126 16 115/88 100 Ambu-Bag vitals with tachycardia Sp02 EP Interpretation: reviewed, normal General Appearance: mild distress, Chronically Ill Head: normocephalic, atraumatic Eyes: bilateral eye EOMI, bilateral eye PERRL ENT: dry mucus membranes Neck: supple, no meningismus, other - Trach intact, no bleeding Respiratory: chest non-tender, rhonchi Cardiovascular #1: regular rate, rhythm, no murmur, tachycardia Gastrointestinal: normal bowel sounds, non tender, no mass, no organomegaly, no bruit, non-distended Genitourinary: other - [place] is cloudy Musculoskeletal: other - Contracted Psychiatric: mood/affect normal Skin: warm/dry Procedures Critical Care Time Critical Care Time Critical care is mandated in this patient who presented with severe sepsis from UTI. Patient require my urgent intervention to attenuate the risks of metabolic collapse which may lead to cardiovascular collapse and . Critical care time is 35 minutes excluding any reportable procedure. Critical care time included evaluation, multiple reevaluation, looking at old charts, interpreting laboratory and diagnostic data, discussing case with patient and family and consultants, and charting. Medical Decision Making Diagnostic Impression: Primary Impression: Severe sepsis Additional Impressions: UTI (urinary tract infection) Qualified Codes: N30.00 - Acute cystitis without hematuria Anemia, chronic disease Dehydration Proteinuria Qualified Codes: R80.9 - Proteinuria, unspecified ER Course Patient present with fever and hypotension. But pressure responded with IV fluid. Antibiotic started. I see no obvious pneumonia and chest x-ray. Patient does have UTI. Antibiotic started already. No evidence of ACS, PE, dissection to name a few. Patient will be made it to Dr. Crowe because of insurance change. I contacted both Dr. Crowe and Dr. Shelton to let them know. EKG Diagnostic Results Rate: normal, tachycardiac Rhythm: NSR ST Segments: no acute changes Rhythm Strip Diag. Results EP Interpretation: yes Rate: 105 Rhythm: NSR, no PVC's, no ectopy Chest X-Ray Diagnostic Results EP Interpretation: Yes Findings: no effusion, no pneumothorax, no acute cardiopulmonary disease, other - atalectasis. Number of Views: 1 Last Vital Signs Date Time Temp Pulse Resp B/P Pulse Ox O2 Delivery O2 Flow Rate FiO2 01/02/17 02:08 98.8 126 16 115/88 100 Ambu-Bag Status: improved Disposition: ADMITTED INPATIENT Condition: Serious KRISTIE LARKIN M.D. January 02, 2017 02:36
[2017-01-02 02:43] LABS: BASOPHILS % (AUTO) 0.5 % (0.0-2.0); EOSINOPHILS % (AUTO) 19.1 % (0.0-3.0); LYMPHOCYTES % (AUTO) 10.9 % (20.0-45.0); MEAN CORPUSCULAR HEMOGLOBIN 31.7 PG (27.0-31.0); MEAN CORPUSCULAR HGB CONC 33.9 G/DL (32.0-36.0); MEAN CORPUSCULAR VOLUME 93 FL (80-99); MEAN PLATELET VOLUME 8.6 FL (6.5-10.1); MONOCYTES % (AUTO) 8.2 % (1.0-10.0); NEUTROPHILS % (AUTO) 61.3 % (45.0-75.0); PLATELET COUNT 252 K/UL (150-450); RED BLOOD COUNT 3.26 M/UL (4.70-6.10); RED CELL DISTRIBUTION WIDTH 12.4 % (11.6-14.8); WHITE BLOOD COUNT 9.4 K/UL (4.8-10.8)
[2017-01-02 02:55] LABS: INR 1.6 (0.9-1.1); PROTHROMBIN TIME 16.1 SEC (9.30-11.50)
[2017-01-02 03:03] LABS: ALANINE AMINOTRANSFERASE 40 U/L (3-41); ALBUMIN/GLOBULIN RATIO 0.8 (1.0-2.7); ANION GAP 17 (5-15); ASPARTATE AMINO TRANSFERASE 45 U/L (5-40); CALCIUM 9.2 mg/dL (8.6-10.2); CARBON DIOXIDE 23 mEQ/L (20-30); CHLORIDE 95 mEQ/L (98-107); CREATININE 1.3 mg/dL (0.7-1.2); GLOMERULAR FILTRATION RATE > 60 mL/min (>60); HEMOLYSIS 0; POTASSIUM 4.8 mEQ/L (3.4-4.9); REFLEX LACTIC ACID YES OR NO YES; SODIUM 135 mEQ/L (135-145); TOTAL PROTEIN 7.3 g/dL (6.6-8.7)
[2017-01-02 03:09] LABS: TROPONIN I < 0.30 ng/mL (<=0.30)
[2017-01-02 03:19] LABS: CKMB < 1.5 ng/mL (< 6.7)
[2017-01-02 03:45] LABS: APPEARANCE,URINE CLEAR; KETONES,URINE NEGATIVE (NEGATIVE); NITRITE,URINE NEGATIVE (NEGATIVE); PH,URINE 8 (4.5-8.0); PROTEIN,URINE 1+ (NEGATIVE); UROBILINOGEN,URINE NORMAL MG/DL (0.0-1.0)
[2017-01-02 04:16] LABS: BACTERIA,URINE FEW /HPF; LEUKOCYTE ESTERASE ,URINE 2+ (NEGATIVE); RBC,URINE 30-40 /HPF (0 - 0); SQUAMOUS EPITHELIAL CELL,UR FEW /LPF (NONE/OCC)
[2017-01-02] MEDS ORDERED: Cefepime 1gm vial ONE (04:39)
[2017-01-02] MEDS ORDERED: Vancomycin 1.5gm/D5W 300ml 325 ML IVPB ONE (04:45)
[2017-01-02] MEDS ORDERED: Cefepime HCl 1 GM in D5W 55 ML IVPB ONE (04:45)
[2017-01-02] MEDS ORDERED: Acetaminophen 650mg/20.3ml GT PRN (08:00)
[2017-01-02] MEDS ORDERED: DuoNeb 0.5-3(2.5)mg/3ml neb HHN PRN (08:00)
[2017-01-02] MEDS ORDERED: Miralax 17gm pkt ORAL PRN (08:00)
[2017-01-02] MEDS ORDERED: Miralax 17gm pkt GT PRN (08:00)
[2017-01-02] MEDS ORDERED: carBAMazepine 200mg tab GT SCH (09:00)
[2017-01-02] MEDS: LaMICtal 150mg tab GT SCH (09:03)
[2017-01-02] MEDS: Pantoprazole Inj IV SCH (09:03)
[2017-01-02] MEDS: Cyclobenzaprine 10mg Tab GT SCH ×3 (09:04→17:19)
[2017-01-02] MEDS: Heparin 5000 units/ml inj SUBQ SCH ×2 (09:08→21:31)
[2017-01-02] MEDS: Piperacillin/Tazobactam 3.375 GM in NS 110 ML IVPB SCH ×3 (09:09→22:13)
[2017-01-02] MEDS: Lactulose 20gm/30ml UDC GT SCH (09:09)
[2017-01-02] MEDS ORDERED: TEGRETOL200 MG PO (10:10)
[2017-01-02] MEDS ORDERED: ALBUTEROL2.5 MG/3 M INH (10:10)
[2017-01-02] MEDS ORDERED: ATIVAN1 MG ORAL (10:10)
[2017-01-02] MEDS ORDERED: LOSARTAN POTASS50 MG GT (10:10)
--- NOTE | 2017-01-02 10:52 | Diagnostic Imaging Report ---
Indication: Dyspnea Comparison: 12/12/16 A single view chest radiograph was obtained. Findings: There is no significant change. There may be an infiltrate or atelectasis at the left lung base. Tracheostomy noted. Lung volumes are low. Bones are osteopenic. Impression: Left basal infiltrate versus atelectasis.
--- NOTE | 2017-01-02 11:57 | History and Physical ---
History of Present Illness General Date patient seen: January 02, 2017 Reason for Hospitalization: Altered Level of Consciousness Present Illness HPI 61-year-old long term patient with a history of vent dependent respiratory failure, anoxic brain injury. He presents with cCC of a fever and altered mental status. Decreased oxygenation. Allergies: Coded Allergies: CODEINE (Verified Allergy, Unknown, 11/15/16) Medication History Scheduled Ascorbic Acid* (Vitamin C*), 500 MG GT DAILY, (Reported) Carbamazepine (Tegretol*), 220 MG PO BID, (Reported) Carbamazepine (Tegretol*), 200 MG PO Q12HR, (Reported) Cyclobenzaprine Hcl* (Flexeril*), 5 MG ORAL THREE TIMES A DAY, (Reported) Folic Acid* (Folic Acid*), 1 MG ORAL DAILY, (Reported) Lactulose (Lactulose*), 30 ML GT DAILY, (Reported) Lamotrigine* (Lamictal*), 150 MG ORAL DAILY, (Reported) Levetiracetam (Keppra), 1,500 MG ORAL BID, (Reported) Lorazepam* (Ativan*), 1 MG ORAL EVERY 6 HOURS, (Reported) Losartan Potassium* (Losartan Potassium*), 50 MG GT DAILY, (Reported) Multivitamin With Minerals (Multivitamins With Minerals*), 1 TAB GT DAILY, ( Reported) Pantoprazole* (Protonix*), 40 MG ORAL DAILY, (Reported) Protein Supplement (Promod), 30 ML GT BID, (Reported) Thiamine Hcl (Thiamine Hcl), 100 MG IJ DAILY, (Reported) Warfarin Sod* (Coumadin*), 6 MG ORAL DAILY, (Reported) Zinc Sulfate (Zinc Sulfate*), 220 MG GT DAILY, (Reported) Scheduled PRN Acetaminophen (Acetaminophen), 650 MG ORAL Q6H PRN for Prn Headache/Temp > 101, (Reported) Albuterol Sulfate* (Albuterol Sulfate Hhn*), 3 ML INH Q6H PRN for Shortness of Breath, (Reported) Lorazepam* (Ativan*), 1 MG GT Q6HR PRN for For Anxiety, (Reported) Patient History Healthcare decision maker Resuscitation status Full Code Advanced Directive on File No Past Medical/Surgical History Past Medical/Surgical History: (1) Anoxic encephalopathy syndrome (2) Epileptic seizure, generalized Review of Systems All Other Systems: negative except mentioned in HPI Physical Exam General Appearance: WD/WN Lines, tubes and drains: peripheral HEENT: normocephalic, anicteric Neck: non-tender, supple Respiratory/Chest: chest wall non-tender, lungs clear Cardiovascular/Chest: normal peripheral pulses, normal rate Abdomen: normal bowel sounds, non tender Genitourinary/Rectal: normal genital exam Last 24 Hour Vital Signs Date Time Temp Pulse Resp B/P Pulse Ox O2 Delivery O2 Flow Rate FiO2 01/02/17 11:10 75 15 45 01/02/17 10:05 98.0 01/02/17 10:00 35 01/02/17 08:35 89 18 35 01/02/17 08:00 98.0 77 16 90/65 100 Mechanical Ventilator 35 01/02/17 08:00 35 01/02/17 08:00 71 01/02/17 06:39 85 16 35 01/02/17 06:00 98.9 83 18 101/61 100 Mechanical Ventilator 01/02/17 05:55 98.5 86 16 109/71 100 Mechanical Ventilator 15.0 35 01/02/17 05:55 98.5 86 16 109/71 100 Mechanical Ventilator 15.0 35 01/02/17 05:17 83 16 35 01/02/17 04:15 100.0 104 21 98/78 100 Mechanical Ventilator 15.0 35 01/02/17 04:06 98.5 01/02/17 03:08 15.0 35 01/02/17 02:30 120 22 35 01/02/17 02:15 98.8 105 16 115/88 100 Mechanical Ventilator 15.0 35 01/02/17 02:08 98.8 126 16 115/88 100 Ambu-Bag Intake and Output 01/01/17 01/02/17 19:00 07:00 Intake Total 5450 ml Output Total 650 ml Balance 4800 ml Intake IV Total 5450 ml Output Urine Total 650 ml # Voids 1 Laboratory Tests Test 01/02/17 02:25 01/02/17 03:40 01/02/17 04:18 White Blood Count 9.4 K/UL (4.8-10.8) Red Blood Count 3.26 M/UL (4.70-6.10) L Hemoglobin 10.4 G/DL (14.2-18.0) L Hematocrit 30.5 % (42.0-52.0) L Mean Corpuscular Volume 93 FL (80-99) Mean Corpuscular Hemoglobin 31.7 PG (27.0-31.0) H Mean Corpuscular Hemoglobin Concent 33.9 G/DL (32.0-36.0) Red Cell Distribution Width 12.4 % (11.6-14.8) Platelet Count 252 K/UL (150-450) Mean Platelet Volume 8.6 FL (6.5-10.1) Neutrophils (%) (Auto) 61.3 % (45.0-75.0) Lymphocytes (%) (Auto) 10.9 % (20.0-45.0) L Monocytes (%) (Auto) 8.2 % (1.0-10.0) Eosinophils (%) (Auto) 19.1 % (0.0-3.0) H Basophils (%) (Auto) 0.5 % (0.0-2.0) Prothrombin Time 16.1 SEC (9.30-11.50) H Prothromb Time International Ratio 1.6 (0.9-1.1) H Activated Partial Thromboplast Time 35 SEC (23-33) H Sodium Level 135 mEQ/L (135-145) Potassium Level 4.8 mEQ/L (3.4-4.9) Chloride Level 95 mEQ/L (98-107) L Carbon Dioxide Level 23 mEQ/L (20-30) Anion Gap 17 (5-15) H Blood Urea Nitrogen 18 mg/dL (7-23) Creatinine 1.3 mg/dL (0.7-1.2) H Estimat Glomerular Filtration Rate > 60 mL/min (>60) Glucose Level 120 mg/dL (74-106) H Lactic Acid Level 2.40 mmol/L (0.66-2.22) H 2.30 mmol/L (0.66-2.22) H Calcium Level 9.2 mg/dL (8.6-10.2) Total Bilirubin 0.7 mg/dL (0.0-1.2) Aspartate Amino Transf (AST/SGOT) 45 U/L (5-40) H Alanine Aminotransferase (ALT/SGPT) 40 U/L (3-41) Alkaline Phosphatase 359 U/L (40-129) H Total Creatine Kinase 130 U/L (38-174) Creatine Kinase MB < 1.5 ng/mL (< 6.7) Creatine Kinase MB Relative Index 1.1 Troponin I < 0.30 ng/mL (<=0.30) Total Protein 7.3 g/dL (6.6-8.7) Albumin 3.4 g/dL (3.5-5.2) L Globulin 3.9 g/dL Albumin/Globulin Ratio 0.8 (1.0-2.7) L Urine Color Pale yellow Urine Appearance Clear Urine pH 8 (4.5-8.0) Urine Specific [place] 1.010 (1.005-1.035) Urine Protein 1+ (NEGATIVE) H Urine Glucose (UA) Negative (NEGATIVE) Urine Ketones Negative (NEGATIVE) Urine Occult Blood 4+ (NEGATIVE) H Urine Nitrite Negative (NEGATIVE) Urine Bilirubin Negative (NEGATIVE) Urine Urobilinogen Normal MG/DL (0.0-1.0) Urine Leukocyte Esterase 2+ (NEGATIVE) H Urine RBC 30-40 /HPF (0 - 0) H Urine WBC 10-15 /HPF (0 - 0) H Urine Squamous Epithelial Cells Few /LPF (NONE/OCC) Urine Bacteria Few /HPF (NONE) Height (Feet): 5 Height (Inches): 4.00 Weight (Pounds): 180 Medications Current Medications Medications (Trade) Dose Ordered Sig/Romelia Route PRN Reason Start Time Stop Time Status Last Admin Dose Admin Acetaminophen (Tylenol) 650 mg Q4H PRN GT FEVER>100.5 01/02/17 08:00 02/01/17 07:59 Albuterol/ Ipratropium (DuoNeb 0.5-3(2.5)mg/3ml) 3 ml Q4H PRN HHN Shortness of Breath 01/02/17 08:00 01/07/17 07:59 Carbamazepine (TEGretol) 200 mg Q12HR GT 01/02/17 21:00 02/01/17 20:59 Cyclobenzaprine HCl (Flexeril) 5 mg THREE TIMES A DAY GT 01/02/17 09:00 02/01/17 08:59 01/02/17 09:04 Dextrose STAT PRN IV Hypoglycemia 01/02/17 08:00 02/01/17 07:59 Heparin Sodium (Porcine) (Heparin 5000 units/ml) 5,000 units EVERY 12 HOURS SUBQ 01/02/17 09:00 02/01/17 08:59 01/02/17 09:08 Lactulose (Cephulac) 20 gm DAILY GT 01/02/17 09:00 02/01/17 08:59 01/02/17 09:09 Lamotrigine (LaMICtal) 150 mg DAILY GT 01/02/17 09:00 02/01/17 08:59 01/02/17 09:03 Levetiracetam (Keppra) 1,500 mg Q12HR GT 01/02/17 09:00 02/01/17 08:59 01/02/17 09:03 Lorazepam (Ativan 2mg/ml 1ml) 2 mg Q2H PRN IV For Anxiety 01/02/17 08:00 01/09/17 07:59 Ondansetron HCl (Zofran) 4 mg Q6H PRN IVP Nausea & Vomiting 01/02/17 08:00 02/01/17 07:59 Pantoprazole 40 mg 40 mg DAILY IV 01/02/17 09:00 02/01/17 08:59 01/02/17 09:03 Piperacillin Sod/ Tazobactam Sod/ Sodium Chloride (Zosyn/Sodium Chloride) 110 ml @ 27.5 mls/hr Q8HR IVPB 01/02/17 09:00 01/09/17 08:59 01/02/17 09:09 Polyethylene Glycol (Miralax) 17 gm DAILYPRN PRN GT Constipation 01/02/17 08:00 02/01/17 07:59 Vancomycin HCl/ Dextrose (Vancomycin/D5W) 275 ml @ 183.708 mls/hr Q24H IVPB 01/03/17 04:00 01/08/17 03:59 Assessment/Plan Problem List: (1) Severe sepsis ICD Codes: A41.9 - Sepsis, unspecified organism; R65.20 - Severe sepsis without septic shock SNOMED: 66929738 (2) Acute on chronic respiratory failure ICD Codes: J96.20 - Acute and chronic respiratory failure, unspecified whether with hypoxia or hypercapnia SNOMED: 42358126, 84084759 (3) UTI (urinary tract infection) ICD Codes: N39.0 - Urinary tract infection, site not specified SNOMED: 59604815 Qualifiers: Qualified Codes: N30.00 - Acute cystitis without hematuria (4) Feeding by G-tube ICD Codes: Z93.1 - Gastrostomy status SNOMED: 913448242, 560045542 (5) Anoxic encephalopathy syndrome ICD Codes: G93.1 - Anoxic brain damage, not elsewhere classified SNOMED: 428021496 (6) Anemia, chronic disease ICD Codes: D63.8 - Anemia in other chronic diseases classified elsewhere SNOMED: 176077061 Respiratory: adjust tidal volume Cardiac: continue to monitor HR/BP Renal: F/U I&O, keep IV fluid Infectious Disease: check cultures Gastrointestinal: hold feedings Endocrine: check HgA1C, continue sliding scale insulin Hematologic: monitor H/H, transfuse if hgb<8.5 Neurologic: PRN Morphine, keep patient comfortable Affect: PRN ativan Prophylaxis: Heparin Disposition: keep in ICU Notes 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
[2017-01-02] MEDS: carBAMazepine 200mg tab GT SCH (21:28)
[2017-01-03 00:33] VITALS: BP 108/68
[2017-01-03 04:00] VITALS: BP 97/62
[2017-01-03] MEDS: Vancomycin 1250mg in D5W 275ml IVPB SCH (04:13)
[2017-01-03 05:27] LABS: MEAN CORPUSCULAR HEMOGLOBIN 31.8 PG (27.0-31.0); MEAN CORPUSCULAR HGB CONC 33.3 G/DL (32.0-36.0); MEAN CORPUSCULAR VOLUME 96 FL (80-99); PLATELET COUNT 166 K/UL (150-450); RED BLOOD COUNT 2.42 M/UL (4.70-6.10); WHITE BLOOD COUNT 2.4 K/UL (4.8-10.8)
[2017-01-03 05:46] LABS: ANION GAP 13 (5-15); CALCIUM 8.6 mg/dL (8.6-10.2); CARBON DIOXIDE 22 mEQ/L (20-30); CHLORIDE 104 mEQ/L (98-107); GLOMERULAR FILTRATION RATE > 60 mL/min (>60); HEMOLYSIS 5; PHOSPHORUS 3.1 mg/dL (2.5-4.8); POTASSIUM 4.2 mEQ/L (3.4-4.9); SODIUM 139 mEQ/L (135-145)
[2017-01-03] MEDS: Piperacillin/Tazobactam 3.375 GM in NS 110 ML IVPB SCH ×3 (05:53→22:03)
[2017-01-03 06:06] LABS: INR 1.6 (0.9-1.1); PROTHROMBIN TIME 16.9 SEC (9.30-11.50)
[2017-01-03 08:00] VITALS: BP 101/63
[2017-01-03 09:02] LABS: BASOPHILS % (AUTO) 0.5 % (0.0-2.0); EOSINOPHILS % (AUTO) 3.5 % (0.0-3.0); LYMPHOCYTES % (AUTO) 15.8 % (20.0-45.0); MEAN CORPUSCULAR HEMOGLOBIN 31.9 PG (27.0-31.0); MEAN CORPUSCULAR HGB CONC 33.6 G/DL (32.0-36.0); MEAN CORPUSCULAR VOLUME 95 FL (80-99); MEAN PLATELET VOLUME 9.1 FL (6.5-10.1); MONOCYTES % (AUTO) 8.5 % (1.0-10.0); NEUTROPHILS % (AUTO) 71.7 % (45.0-75.0); PLATELET COUNT 181 K/UL (150-450); RED CELL DISTRIBUTION WIDTH 13.1 % (11.6-14.8); WHITE BLOOD COUNT 9.6 K/UL (4.8-10.8)
[2017-01-03] MEDS: LaMICtal 150mg tab GT SCH (09:07)
[2017-01-03] MEDS: Lactulose 20gm/30ml UDC GT SCH (09:07)
[2017-01-03] MEDS: Cyclobenzaprine 10mg Tab GT SCH ×3 (09:08→18:03)
[2017-01-03] MEDS: Pantoprazole Inj IV SCH (09:08)
[2017-01-03] MEDS: carBAMazepine 200mg tab GT SCH ×2 (09:08→20:18)
[2017-01-03] MEDS: Heparin 5000 units/ml inj SUBQ SCH ×2 (09:10→20:21)
--- NOTE | 2017-01-03 10:25 | Pulmonology Progress Note ---
Assessment/Plan Problems: (1) Severe sepsis (2) Acute on chronic respiratory failure (3) UTI (urinary tract infection) (4) Feeding by G-tube (5) Anoxic encephalopathy syndrome (6) Anemia, chronic disease Respiratory: monitor respiratory rate, adjust FIO2, CXR Renal: F/U I&O, keep IV fluid, increase IV fluid, check electrolytes Infectious Disease: check cultures, continue antibiotics Gastrointestinal: continue feedings/current rate Endocrine: monitor blood sugar, check TSH, continue sliding scale insulin Hematologic: monitor H/H, transfuse if hgb<8.5 Neurologic: PRN Ativan, PRN Morphine, keep patient comfortable Prophylaxis: Protonix, Heparin Notes Reviewed: winemaker, cardio Discussed with: nurses, consultants, case finishing machine adjuster Subjective ROS Limited/Unobtainable: Yes Allergies: Coded Allergies: CODEINE (Verified Allergy, Unknown, 11/15/16) Objective Last 24 Hour Vital Signs Date Time Temp Pulse Resp B/P Pulse Ox O2 Delivery O2 Flow Rate FiO2 01/03/17 10:00 97.2 01/03/17 09:19 87 22 45 01/03/17 08:00 73 01/03/17 08:00 97.2 73 16 101/63 100 Mechanical Ventilator 01/03/17 08:00 45 01/03/17 07:23 69 15 45 01/03/17 05:10 74 14 45 01/03/17 04:00 64 01/03/17 04:00 35 01/03/17 04:00 98.7 76 20 97/62 99 Mechanical Ventilator 01/03/17 03:15 60 13 45 01/03/17 01:16 74 13 45 01/03/17 00:33 99.0 85 18 108/68 100 Mechanical Ventilator 01/03/17 00:00 35 01/03/17 00:00 72 01/02/17 23:22 78 16 45 01/02/17 21:13 68 15 45 01/02/17 20:00 99.3 83 20 96/67 100 Mechanical Ventilator 01/02/17 20:00 35 01/02/17 19:17 89 01/02/17 19:06 118 27 45 01/02/17 16:58 75 21 45 01/02/17 16:00 99.5 89 15 92/60 100 Nasal Cannula 3.0 01/02/17 16:00 68 01/02/17 16:00 35 01/02/17 15:14 68 14 45 01/02/17 12:52 76 16 45 01/02/17 12:13 98.8 87 20 106/53 97 Nasal Cannula 3.0 01/02/17 12:00 35 01/02/17 12:00 69 01/02/17 11:57 98.4 72 15 85/63 100 Mechanical Ventilator 45 01/02/17 11:10 75 15 45 Intake and Output 01/02/17 01/03/17 19:00 07:00 Intake Total 495.0 ml 964.916 ml Output Total 1075 ml 550 ml Balance -580.0 ml 414.916 ml Intake Free Water 50 ml 100 ml IV Total 220.0 ml 504.916 ml Tube Feeding 210 ml 360 ml Other 15 ml Output Urine Total 1075 ml 550 ml # Bowel Movements 2 General Appearance: WD/WN HEENT: normocephalic, atraumatic Respiratory/Chest: chest wall non-tender, lungs clear Cardiovascular: normal peripheral pulses, normal rate Abdomen: normal bowel sounds, soft, non tender Genitourinary: normal external genitalia Neurologic/Psychiatric: station engineer chief II-XII grossly normal, no motor/sensory deficits Lymphatic: no groin adenopathy Microbiology Date/Time Source Procedure Growth Status 01/02/17 02:25 Blood Blood Culture - Preliminary NO GROWTH AFTER 24 HOURS Resulted 01/02/17 02:20 Blood Blood Culture - Preliminary NO GROWTH AFTER 24 HOURS Resulted Laboratory Tests 01/03/17 03:45: White Blood Count 2.4#L, Red Blood Count 2.42L, Hemoglobin 7.7L, Hematocrit 23.1L, Mean Corpuscular Volume 96, Mean Corpuscular Hemoglobin 31.8H, Mean Corpuscular Hemoglobin Concent 33.3, Red Cell Distribution Width 13.0, Platelet Count 166, Mean Platelet Volume 9.0, Neutrophils (%) (Auto) , Lymphocytes (%) ( Auto) , Monocytes (%) (Auto) , Eosinophils (%) (Auto) , Basophils (%) (Auto) , Neutrophils % (Manual) [Pending], Lymphocytes % (Manual) [Pending], Platelet Estimate [Pending], Platelet Morphology [Pending], Erythrocyte Sedimentation Rate [Pending], Reticulocyte Count [Pending], Prothrombin Time 16.9H, Prothromb Time International Ratio 1.6H, Activated Partial Thromboplast Time 41H, Sodium Level 139, Potassium Level 4.2, Chloride Level 104, Carbon Dioxide Level 22, Anion Gap 13, Blood Urea Nitrogen 13, Creatinine 1.0, Estimat Glomerular Filtration Rate > 60, Glucose Level 91, Calcium Level 8.6, Phosphorus Level 3.1 , Iron Level 75, Total Iron Binding Capacity 129L, Percent Iron Saturation 58H, Unsaturated Iron Binding 54L, Lactate Dehydrogenase 168, Albumin 2.5L, Carcinoembryonic Antigen 6.1H, Vitamin B12 Level 929, Folate [Pending] 01/03/17 08:30: White Blood Count 9.6#, Red Blood Count 2.70L, Hemoglobin 8.6L, Hematocrit 25.7L , Mean Corpuscular Volume 95, Mean Corpuscular Hemoglobin 31.9H, Mean Corpuscular Hemoglobin Concent 33.6, Red Cell Distribution Width 13.1, Platelet Count 181, Mean Platelet Volume 9.1, Neutrophils (%) (Auto) 71.7, Lymphocytes (% ) (Auto) 15.8L, Monocytes (%) (Auto) 8.5, Eosinophils (%) (Auto) 3.5H, Basophils (%) (Auto) 0.5 Current Medications Medications (Trade) Dose Ordered Sig/Romelia Route PRN Reason Start Time Stop Time Status Last Admin Dose Admin Acetaminophen (Tylenol) 650 mg Q4H PRN GT FEVER>100.5 01/02/17 08:00 02/01/17 07:59 Albuterol/ Ipratropium (DuoNeb 0.5-3(2.5)mg/3ml) 3 ml Q4H PRN HHN Shortness of Breath 01/02/17 08:00 01/07/17 07:59 Carbamazepine (TEGretol) 200 mg Q12HR GT 01/02/17 21:00 02/01/17 20:59 01/03/17 09:08 Cyclobenzaprine HCl (Flexeril) 5 mg THREE TIMES A DAY GT 01/02/17 09:00 02/01/17 08:59 01/03/17 09:08 Dextrose STAT PRN IV Hypoglycemia 01/02/17 08:00 02/01/17 07:59 Heparin Sodium (Porcine) (Heparin 5000 units/ml) 5,000 units EVERY 12 HOURS SUBQ 01/02/17 09:00 02/01/17 08:59 01/03/17 09:10 Lactulose (Cephulac) 20 gm DAILY GT 01/02/17 09:00 02/01/17 08:59 01/03/17 09:07 Lamotrigine (LaMICtal) 150 mg DAILY GT 01/02/17 09:00 02/01/17 08:59 01/03/17 09:07 Levetiracetam (Keppra) 1,500 mg Q12HR GT 01/02/17 09:00 02/01/17 08:59 01/03/17 09:07 Lorazepam (Ativan 2mg/ml 1ml) 2 mg Q2H PRN IV For Anxiety 01/02/17 08:00 01/09/17 07:59 Ondansetron HCl (Zofran) 4 mg Q6H PRN IVP Nausea & Vomiting 01/02/17 08:00 02/01/17 07:59 Pantoprazole 40 mg 40 mg DAILY IV 01/02/17 09:00 02/01/17 08:59 01/03/17 09:08 Piperacillin Sod/ Tazobactam Sod/ Sodium Chloride (Zosyn/Sodium Chloride) 110 ml @ 27.5 mls/hr Q8HR IVPB 01/02/17 09:00 01/09/17 08:59 01/03/17 05:53 Polyethylene Glycol (Miralax) 17 gm DAILYPRN PRN GT Constipation 01/02/17 08:00 02/01/17 07:59 Vancomycin HCl/ Dextrose (Vancomycin/D5W) 275 ml @ 183.708 mls/hr Q24H IVPB 01/03/17 04:00 01/08/17 03:59 01/03/17 04:13 MYCHAL MITCHELL January 03, 2017 10:25
--- NOTE | 2017-01-03 10:47 | Consultation ---
Consult Note Consult Note ID Dic # [id number] JON TINOCO M.D. January 03, 2017 10:47
[2017-01-03 10:54] LABS: BAND NEUTROPHILS % (MANUAL) 0 % (0-8); BASOPHILS % (MANUAL) 0 % (0-2); EOSINOPHILS % (MANUAL) 6 % (0-3); HYPOCHROMASIA 1+; LYMPHOCYTES % (MANUAL) 11 % (20-45); NEUTROPHILS % (MANUAL) 74 % (45-75); PLATELET ESTIMATE ADEQUATE; PLATELET MORPHOLOGY NORMAL; TOTAL CELLS COUNTED 100
--- NOTE | 2017-01-03 11:36 | Diagnostic Imaging Report ---
APPROVED REPORT CPT Code: 17136 BILATERAL: Imaging reveals a patent deep venous system bilaterally. There is no evidence of thrombus within the femoral, popliteal or tibial segments. The greater saphenous veins are also within normal limits. Doppler indicates normal spontaneous flow within these segments.
[2017-01-03 12:00] VITALS: BP 108/64
[2017-01-03 12:01] LABS: ERYTHROCYTE SEDIMENTATION RATE 130 MM/HR (0-20); PATH BLOOD SMEAR/OMC SENT TO PATHOLOGIST
[2017-01-03 12:07] LABS: ANISOCYTOSIS 1+; BAND NEUTROPHILS % (MANUAL) 0 % (0-8); BASOPHILS % (MANUAL) 0 % (0-2); EOSINOPHILS % (MANUAL) 4 % (0-3); HYPOCHROMASIA 1+; LYMPHOCYTES % (MANUAL) 39 % (20-45); NEUTROPHILS % (MANUAL) 42 % (45-75); PLATELET ESTIMATE ADEQUATE; PLATELET MORPHOLOGY NORMAL; TOTAL CELLS COUNTED 100
[2017-01-03 16:00] VITALS: BP 123/54
--- NOTE | 2017-01-03 17:16 | Consultation ---
DATE OF CONSULTATION: INFECTIOUS DISEASE CONSULTATION CONSULTING PHYSICIAN: Jonnathan Dwyer M.D. REQUESTING PHYSICIAN: Marci Crowe M.D. REASON FOR CONSULTATION: Evaluation of the patient for fever, sepsis, antibiotic management. HISTORY OF PRESENT ILLNESS: The patient is a 61-year-old male with multiple medical problems as listed below who was admitted through the emergency room due to the respiratory failure, fever, and worsening of mental status, and hypothermia. The patient has been admitted to telemetry unit. At the time of admission, the patient was found to have low-grade fever. The patient has been started on IV antibiotics and Infectious Diseases consultation has been requested for further evaluation of the patient and antibiotic management. PAST MEDICAL HISTORY: 1. History of encephalopathy. 2. Seizure disorder. 3. Ventilator-dependent respiratory failure. 4. Status post PEG. 5. Status post trach. 6. Hypertension. 7. COPD. 8. History of alcoholic liver cirrhosis. 9. History of cocaine abuse in the past. MEDICATIONS: Vancomycin and Zosyn. ALLERGIES: Codeine. FAMILY HISTORY: Not available. REVIEW OF SYSTEMS: Unobtainable. PHYSICAL EXAMINATION: VITAL SIGNS: Temperature 97.2 degrees, blood pressure 101/60, pulse 72, and respiratory rate 18. HEENT: Mild pale conjunctivae. No icterus. NECK: No lymphadenopathy. CHEST: Coarse breathing sounds. HEART: S1 and S2. ABDOMEN: Soft, mildly distended. EXTREMITIES: No cyanosis. NEUROLOGIC: The patient is awake. LABORATORY AND DIAGNOSTIC DATA: White blood cell is 9.6, hemoglobin 8.6, and platelets 181,000. UA, 30-40 red blood cells, 10-15 white blood cells. BUN 13 and creatinine 1. Mild elevation of liver function tests, alkaline phosphatase 359. Blood culture is pending. Chest x-ray showed left basilar infiltrate versus atelectasis. ASSESSMENT: The patient is a 61-year-old male with multiple medical problems who has been admitted to this medical center due to sepsis, fever, altered level of consciousness that appears to have improved. The source of infection most likely is ventilator-associated pneumonia, also influenza, possible urinary tract infection, and bacteremia. The patient would benefit from broad-spectrum antibiotics at this time until we get further information from cultures. PLAN: 1. We will continue the patient on vancomycin and Zosyn. 2. Monitor CBC. 3. Monitor BMP. 4. Monitor cultures (blood, sputum, and urine). 5. Monitor chest x-ray. 6. Based on the patient's clinical course and labs, we will do further recommendation. Thank you, Dr. Crowe, for allowing me to participate in the care of this patient. I will follow the patient with you during this hospitalization. Jonnathan Dwyer M.D. DR: ABRAN JOB#: [id number] CC:
[2017-01-03 20:00] VITALS: BP 111/72
[2017-01-03] MEDS ORDERED: Vancomycin 1 GM in D5W 275 ML IV SCH (23:00)
[2017-01-04] VITALS: BP 136/86
[2017-01-04] MEDS: Vancomycin 1250mg in D5W 275ml IVPB SCH (03:50)
[2017-01-04 04:00] VITALS: BP 105/67
[2017-01-04 05:09] LABS: MEAN CORPUSCULAR HEMOGLOBIN 32.2 PG (27.0-31.0); MEAN CORPUSCULAR HGB CONC 33.6 G/DL (32.0-36.0); MEAN CORPUSCULAR VOLUME 96 FL (80-99); MEAN PLATELET VOLUME 9.3 FL (6.5-10.1); PLATELET COUNT 191 K/UL (150-450); RED BLOOD COUNT 2.66 M/UL (4.70-6.10); WHITE BLOOD COUNT 3.3 K/UL (4.8-10.8)
[2017-01-04 05:45] LABS: ALANINE AMINOTRANSFERASE 24 U/L (3-41); ALBUMIN/GLOBULIN RATIO 0.7 (1.0-2.7); ANION GAP 13 (5-15); ASPARTATE AMINO TRANSFERASE 25 U/L (5-40); CALCIUM 9.1 mg/dL (8.6-10.2); CARBON DIOXIDE 25 mEQ/L (20-30); CHLORIDE 97 mEQ/L (98-107); GLOMERULAR FILTRATION RATE > 60 mL/min (>60); HEMOLYSIS 2; POTASSIUM 4.3 mEQ/L (3.4-4.9); SODIUM 135 mEQ/L (135-145); TOTAL PROTEIN 6.4 g/dL (6.6-8.7)
[2017-01-04] MEDS: LORazepam Inj 2mg/ml 1ml IV PRN (05:46)
[2017-01-04] MEDS: Piperacillin/Tazobactam 3.375 GM in NS 110 ML IVPB SCH ×3 (05:47→21:47)
[2017-01-04 08:00] VITALS: BP 94/66
[2017-01-04 08:27] LABS: BAND NEUTROPHILS % (MANUAL) 0 % (0-8); BASOPHILS % (MANUAL) 0 % (0-2); EOSINOPHILS % (MANUAL) 3 % (0-3); LYMPHOCYTES % (MANUAL) 37 % (20-45); NEUTROPHILS % (MANUAL) 52 % (45-75); PLATELET ESTIMATE ADEQUATE; PLATELET MORPHOLOGY NORMAL; TOTAL CELLS COUNTED 100
[2017-01-04 08:30] LABS: HYPOCHROMASIA 1+
[2017-01-04] MEDS: LaMICtal 150mg tab GT SCH (09:04)
[2017-01-04] MEDS: carBAMazepine 200mg tab GT SCH ×2 (09:05→21:47)
[2017-01-04] MEDS: Cyclobenzaprine 10mg Tab GT SCH ×3 (09:06→17:02)
[2017-01-04] MEDS: Lactulose 20gm/30ml UDC GT SCH (09:07)
[2017-01-04] MEDS: levETIRAcetam 500mg/5ml Liquid GT SCH ×2 (09:07→21:47)
[2017-01-04] MEDS: Pantoprazole Inj IV SCH (09:07)
[2017-01-04] MEDS: Heparin 5000 units/ml inj SUBQ SCH ×2 (09:10→21:46)
--- NOTE | 2017-01-04 10:21 | Pulmonology Progress Note ---
Assessment/Plan Problems: (1) Severe sepsis (2) Acute on chronic respiratory failure (3) UTI (urinary tract infection) (4) Feeding by G-tube (5) Anoxic encephalopathy syndrome (6) Anemia, chronic disease Respiratory: monitor respiratory rate, adjust FIO2 Cardiac: continue to monitor HR/BP Renal: F/U I&O Infectious Disease: check cultures, other - Proteus sensitive to zosyn, dc vancomycin Gastrointestinal: continue feedings/current rate Endocrine: monitor blood sugar, continue sliding scale insulin Hematologic: monitor H/H, transfuse if hgb<8.5 Neurologic: PRN Ativan, PRN Morphine, keep patient comfortable Affect: PRN ativan Prophylaxis: Protonix Notes Reviewed: cotton factor, cardio, renal Discussed with: nurses, consultants, manager case management Subjective ROS Limited/Unobtainable: Yes Allergies: Coded Allergies: CODEINE (Verified Allergy, Unknown, 11/15/16) Objective Last 24 Hour Vital Signs Date Time Temp Pulse Resp B/P Pulse Ox O2 Delivery O2 Flow Rate FiO2 01/04/17 08:32 72 21 45 01/04/17 08:00 97.7 61 14 94/66 100 Mechanical Ventilator 45.0 01/04/17 08:00 45 01/04/17 07:52 58 01/04/17 06:44 83 20 45 01/04/17 05:00 68 17 45 01/04/17 04:00 62 01/04/17 04:00 45 01/04/17 04:00 97.7 78 19 105/67 100 Mechanical Ventilator 45 01/04/17 03:20 79 20 45 01/04/17 01:05 75 15 45 01/04/17 00:00 45 01/04/17 00:00 65 01/04/17 00:00 98.7 86 28 136/86 100 Mechanical Ventilator 45 01/03/17 22:45 63 13 45 01/03/17 21:16 78 21 45 01/03/17 20:00 45 01/03/17 20:00 98.6 68 17 111/72 100 Mechanical Ventilator 40 01/03/17 20:00 75 01/03/17 19:18 64 14 45 01/03/17 19:00 98.3 01/03/17 17:22 66 14 45 01/03/17 16:00 45 01/03/17 16:00 98.3 81 18 123/54 98 Simple Mask 01/03/17 16:00 73 01/03/17 14:42 63 14 45 01/03/17 12:41 73 14 45 01/03/17 12:00 65 01/03/17 12:00 98.5 82 16 108/64 100 Mechanical Ventilator 01/03/17 12:00 45 01/03/17 10:35 67 22 45 Intake and Output 01/03/17 01/04/17 19:00 07:00 Intake Total 655.0 ml 1060.000 ml Output Total 300 ml 500 ml Balance 355.0 ml 560.000 ml IV Total 190.0 ml 415.000 ml Tube Feeding 390 ml 585 ml Other 75 ml 60 ml Output Urine Total 300 ml 500 ml # Voids 3 # Bowel Movements 1 General Appearance: WD/WN HEENT: normocephalic, atraumatic, status post trach Respiratory/Chest: chest wall non-tender, lungs clear Cardiovascular: normal peripheral pulses, normal rate Abdomen: normal bowel sounds, soft, non tender, no organomegaly, non distended Extremities: no cyanosis, no clubbing Skin: no rash, no ulcers Lymphatic: no neck adenopathy Musculoskeletal: normal muscle bulk Microbiology Date/Time Source Procedure Growth Status 01/02/17 02:25 Blood Blood Culture - Preliminary NO GROWTH AFTER 48 HOURS Resulted 01/02/17 02:20 Blood Blood Culture - Preliminary NO GROWTH AFTER 48 HOURS Resulted 01/02/17 11:30 Sputum Gram Stain - Final Resulted 01/02/17 11:30 Sputum Sputum Culture Pending Resulted 01/02/17 03:30 Nasal Nares MRSA Culture - Final NO METHICILLIN RESISTANT STAPH AUREUS... Complete 01/02/17 03:40 Urine,Clean Catch Urine Culture - Preliminary Proteus Mirabilis Resulted 01/02/17 03:30 Rectum VRE Culture - Final Enterococcus Faecalis - Vre Complete Laboratory Tests 01/03/17 13:40: Stool Occult Blood Negative 01/04/17 04:20: White Blood Count 3.3#L, Red Blood Count 2.66L, Hemoglobin 8.6L, Hematocrit 25.5L, Mean Corpuscular Volume 96, Mean Corpuscular Hemoglobin 32.2H, Mean Corpuscular Hemoglobin Concent 33.6, Red Cell Distribution Width 13.0, Platelet Count 191, Mean Platelet Volume 9.3, Neutrophils (%) (Auto) , Lymphocytes (%) ( Auto) , Monocytes (%) (Auto) , Eosinophils (%) (Auto) , Basophils (%) (Auto) , Differential Total Cells Counted 100, Neutrophils % (Manual) 52, Lymphocytes % ( Manual) 37, Monocytes % (Manual) 8, Eosinophils % (Manual) 3, Basophils % ( Manual) 0, Band Neutrophils 0, Platelet Estimate Adequate, Platelet Morphology Normal, Giant Platelets Occasional, Red Blood Cell Morphology , Hypochromasia 1+ , Sodium Level 135, Potassium Level 4.3, Chloride Level 97L, Carbon Dioxide Level 25, Anion Gap 13, Blood Urea Nitrogen 12, Creatinine 1.0, Estimat Glomerular Filtration Rate > 60, Glucose Level 112H, Calcium Level 9.1, Total Bilirubin 0.5, Aspartate Amino Transf (AST/SGOT) 25, Alanine Aminotransferase ( ALT/SGPT) 24, Alkaline Phosphatase 234H, Pro-B-Type Natriuretic Peptide 421H, Total Protein 6.4L, Albumin 2.7L, Globulin 3.7, Albumin/Globulin Ratio 0.7L Current Medications Medications (Trade) Dose Ordered Sig/Romelia Route PRN Reason Start Time Stop Time Status Last Admin Dose Admin Acetaminophen (Tylenol) 650 mg Q4H PRN GT FEVER>100.5 01/02/17 08:00 02/01/17 07:59 Albuterol/ Ipratropium (DuoNeb 0.5-3(2.5)mg/3ml) 3 ml Q4H PRN HHN Shortness of Breath 01/02/17 08:00 01/07/17 07:59 Carbamazepine (TEGretol) 200 mg Q12HR GT 01/02/17 21:00 02/01/17 20:59 01/04/17 09:05 Cyclobenzaprine HCl (Flexeril) 5 mg THREE TIMES A DAY GT 01/02/17 09:00 02/01/17 08:59 01/04/17 09:06 Dextrose STAT PRN IV Hypoglycemia 01/02/17 08:00 02/01/17 07:59 Heparin Sodium (Porcine) (Heparin 5000 units/ml) 5,000 units EVERY 12 HOURS SUBQ 01/02/17 09:00 02/01/17 08:59 01/04/17 09:10 Lactulose (Cephulac) 20 gm DAILY GT 01/02/17 09:00 02/01/17 08:59 01/04/17 09:07 Lamotrigine (LaMICtal) 150 mg DAILY GT 01/02/17 09:00 02/01/17 08:59 01/04/17 09:04 Levetiracetam (Keppra) 1,500 mg Q12HR GT 01/04/17 09:00 02/01/17 08:59 01/04/17 09:07 Lorazepam (Ativan 2mg/ml 1ml) 2 mg Q2H PRN IV For Anxiety 01/02/17 08:00 01/09/17 07:59 01/04/17 05:46 Ondansetron HCl (Zofran) 4 mg Q6H PRN IVP Nausea & Vomiting 01/02/17 08:00 02/01/17 07:59 Pantoprazole 40 mg 40 mg DAILY IV 01/02/17 09:00 02/01/17 08:59 01/04/17 09:07 Piperacillin Sod/ Tazobactam Sod/ Sodium Chloride (Zosyn/Sodium Chloride) 110 ml @ 27.5 mls/hr Q8HR IVPB 01/02/17 09:00 01/09/17 08:59 01/04/17 05:47 Polyethylene Glycol (Miralax) 17 gm DAILYPRN PRN GT Constipation 01/02/17 08:00 02/01/17 07:59 Vancomycin HCl (Vanco rx to dose) 1 ea DAILY PRN MISC PER RX PROTOCOL 01/03/17 13:30 02/02/17 13:29 Vancomycin HCl/ Dextrose (Vancomycin/D5W) 275 ml @ 183.708 mls/hr Q24H IVPB 01/03/17 04:00 01/08/17 03:59 01/04/17 03:50 MYCHAL MITCHELL January 04, 2017 10:21
--- NOTE | 2017-01-04 11:38 | Infectious Diseases Prog Note ---
Assessment/Plan Assessment/Plan A: he patient is a 61-year-old male with UTI P Mirabilis probable Pna Chest x-ray : left basilar infiltrate versus atelectasis Fever, SP Sepsis, Sp leukopenia Elev Alk Ph Worsening of mental status, SP History of encephalopathy. Seizure disorder. Ventilator-dependent respiratory failure. Status post PEG. Status post trach. Hypertension. COPD. History of alcoholic liver cirrhosis. History of cocaine abuse in the past PLAN: on Zosyn d# 2 / 14 , DC vancomycin d# 2 Monitor CBC. Monitor BMP. Monitor cultures (blood, sputum). Monitor chest x-ray US of Abd . Subjective Allergies: Coded Allergies: CODEINE (Verified Allergy, Unknown, 11/15/16) Objective Vital Signs Last 24 Hour Vital Signs Date Time Temp Pulse Resp B/P Pulse Ox O2 Delivery O2 Flow Rate FiO2 01/04/17 10:31 63 13 40 01/04/17 10:30 40 01/04/17 08:32 72 21 45 01/04/17 08:00 97.7 61 14 94/66 100 Mechanical Ventilator 45.0 01/04/17 08:00 45 01/04/17 07:52 58 01/04/17 06:44 83 20 45 01/04/17 05:00 68 17 45 01/04/17 04:00 62 01/04/17 04:00 45 01/04/17 04:00 97.7 78 19 105/67 100 Mechanical Ventilator 45 01/04/17 03:20 79 20 45 01/04/17 01:05 75 15 45 01/04/17 00:00 45 01/04/17 00:00 65 01/04/17 00:00 98.7 86 28 136/86 100 Mechanical Ventilator 45 01/03/17 22:45 63 13 45 01/03/17 21:16 78 21 45 01/03/17 20:00 45 01/03/17 20:00 98.6 68 17 111/72 100 Mechanical Ventilator 40 01/03/17 20:00 75 01/03/17 19:18 64 14 45 01/03/17 19:00 98.3 01/03/17 17:22 66 14 45 01/03/17 16:00 45 01/03/17 16:00 98.3 81 18 123/54 98 Simple Mask 01/03/17 16:00 73 01/03/17 14:42 63 14 45 01/03/17 12:41 73 14 45 01/03/17 12:00 65 01/03/17 12:00 98.5 82 16 108/64 100 Mechanical Ventilator 01/03/17 12:00 45 Height (Feet): 5 Height (Inches): 4.00 Weight (Pounds): 180 Microbiology Date/Time Source Procedure Growth Status 01/02/17 02:25 Blood Blood Culture - Preliminary NO GROWTH AFTER 48 HOURS Resulted 01/02/17 02:20 Blood Blood Culture - Preliminary NO GROWTH AFTER 48 HOURS Resulted 01/02/17 11:30 Sputum Gram Stain - Final Resulted 01/02/17 11:30 Sputum Sputum Culture Pending Resulted 01/02/17 03:30 Nasal Nares MRSA Culture - Final NO METHICILLIN RESISTANT STAPH AUREUS... Complete 01/02/17 03:40 Urine,Clean Catch Urine Culture - Preliminary Proteus Mirabilis Resulted 01/02/17 03:30 Rectum VRE Culture - Final Enterococcus Faecalis - Vre Complete Laboratory Tests Test 01/03/17 13:40 01/04/17 04:20 Stool Occult Blood Negative (NEGATIVE) White Blood Count 3.3 K/UL (4.8-10.8) #L Red Blood Count 2.66 M/UL (4.70-6.10) L Hemoglobin 8.6 G/DL (14.2-18.0) L Hematocrit 25.5 % (42.0-52.0) L Mean Corpuscular Volume 96 FL (80-99) Mean Corpuscular Hemoglobin 32.2 PG (27.0-31.0) H Mean Corpuscular Hemoglobin Concent 33.6 G/DL (32.0-36.0) Red Cell Distribution Width 13.0 % (11.6-14.8) Platelet Count 191 K/UL (150-450) Mean Platelet Volume 9.3 FL (6.5-10.1) Neutrophils (%) (Auto) % (45.0-75.0) Lymphocytes (%) (Auto) % (20.0-45.0) Monocytes (%) (Auto) % (1.0-10.0) Eosinophils (%) (Auto) % (0.0-3.0) Basophils (%) (Auto) % (0.0-2.0) Differential Total Cells Counted 100 Neutrophils % (Manual) 52 % (45-75) Lymphocytes % (Manual) 37 % (20-45) Monocytes % (Manual) 8 % (1-10) Eosinophils % (Manual) 3 % (0-3) Basophils % (Manual) 0 % (0-2) Band Neutrophils 0 % (0-8) Platelet Estimate Adequate Platelet Morphology Normal Giant Platelets Occasional Red Blood Cell Morphology Hypochromasia 1+ Sodium Level 135 mEQ/L (135-145) Potassium Level 4.3 mEQ/L (3.4-4.9) Chloride Level 97 mEQ/L (98-107) L Carbon Dioxide Level 25 mEQ/L (20-30) Anion Gap 13 (5-15) Blood Urea Nitrogen 12 mg/dL (7-23) Creatinine 1.0 mg/dL (0.7-1.2) Estimat Glomerular Filtration Rate > 60 mL/min (>60) Glucose Level 112 mg/dL (74-106) H Calcium Level 9.1 mg/dL (8.6-10.2) Total Bilirubin 0.5 mg/dL (0.0-1.2) Aspartate Amino Transf (AST/SGOT) 25 U/L (5-40) Alanine Aminotransferase (ALT/SGPT) 24 U/L (3-41) Alkaline Phosphatase 234 U/L (40-129) H Pro-B-Type Natriuretic Peptide 421 pg/mL (0-125) H Total Protein 6.4 g/dL (6.6-8.7) L Albumin 2.7 g/dL (3.5-5.2) L Globulin 3.7 g/dL Albumin/Globulin Ratio 0.7 (1.0-2.7) L Current Medications Medications (Trade) Dose Ordered Sig/Romelia Route PRN Reason Start Time Stop Time Status Last Admin Dose Admin Acetaminophen (Tylenol) 650 mg Q4H PRN GT FEVER>100.5 01/02/17 08:00 02/01/17 07:59 Albuterol/ Ipratropium (DuoNeb 0.5-3(2.5)mg/3ml) 3 ml Q4H PRN HHN Shortness of Breath 01/02/17 08:00 01/07/17 07:59 Carbamazepine (TEGretol) 200 mg Q12HR GT 01/02/17 21:00 02/01/17 20:59 01/04/17 09:05 Cyclobenzaprine HCl (Flexeril) 5 mg THREE TIMES A DAY GT 01/02/17 09:00 02/01/17 08:59 01/04/17 09:06 Dextrose STAT PRN IV Hypoglycemia 01/02/17 08:00 02/01/17 07:59 Heparin Sodium (Porcine) (Heparin 5000 units/ml) 5,000 units EVERY 12 HOURS SUBQ 01/02/17 09:00 02/01/17 08:59 01/04/17 09:10 Lactulose (Cephulac) 20 gm DAILY GT 01/02/17 09:00 02/01/17 08:59 01/04/17 09:07 Lamotrigine (LaMICtal) 150 mg DAILY GT 01/02/17 09:00 02/01/17 08:59 01/04/17 09:04 Levetiracetam (Keppra) 1,500 mg Q12HR GT 01/04/17 09:00 02/01/17 08:59 01/04/17 09:07 Lorazepam (Ativan 2mg/ml 1ml) 2 mg Q2H PRN IV For Anxiety 01/02/17 08:00 01/09/17 07:59 01/04/17 05:46 Ondansetron HCl (Zofran) 4 mg Q6H PRN IVP Nausea & Vomiting 01/02/17 08:00 02/01/17 07:59 Pantoprazole (Protonix) 40 mg DAILY IV 01/02/17 09:00 02/01/17 08:59 01/04/17 09:07 Piperacillin Sod/ Tazobactam Sod/ Sodium Chloride (Zosyn/Sodium Chloride) 110 ml @ 27.5 mls/hr Q8HR IVPB 01/02/17 09:00 01/09/17 08:59 01/04/17 05:47 Polyethylene Glycol (Miralax) 17 gm DAILYPRN PRN GT Constipation 01/02/17 08:00 02/01/17 07:59 JON TINOCO M.D. January 04, 2017 11:38
[2017-01-04 12:00] VITALS: BP 89/62
--- NOTE | 2017-01-04 12:16 | Diagnostic Imaging Report ---
Indication: DYSPNEA Technique: One view of the chest Comparison: 01/02/2017 Findings: Retrocardiac consolidation persists. No new infiltrates. There is decreasing atelectasis on the right. Tracheostomy remains. Impression: Decreasing right basilar atelectasis. Otherwise, little supervisor records change 2 days, including persistent retrocardiac consolidation
[2017-01-04] MEDS ORDERED: Heparin 2000 units/Ns 1000ml INJ PRN (13:30)
[2017-01-04] MEDS ORDERED: Sodium Bicarbonate 4% 2.4meq/5ml vial INJ PRN (13:30)
[2017-01-04] MEDS ORDERED: Lidocaine 1% Plain 30 ml INJ PRN (13:30)
--- NOTE | 2017-01-04 15:45 | Diagnostic Imaging Report ---
Indications: Needs long-term IV access Technique: Procedure performed at bedside. Procedural timeout performed. Ultrasound confirms patent compressible right basilic vein. Total sterile technique, including sterile probe cover and sterile gel, sterile gloves, hand hygiene, hat, mask,, sterile gown, large sterile drape, and preparation with 2% chlorhexidine utilized. Local anesthesia with 1% lidocaine. Under real-time ultrasound guidance, puncture sella vein using 21-gauge needle, passage 0.018 guidewire, exchange for 5 German peel-away sheath. 5 German Bard dual-lumen power PICC cut to 43 cm. It was inserted through the peel-away sheath. Peel-away sheath and guidewire removed. Catheter fixed to the skin. Both catheter ports aspirated and flushed. Patient tolerated procedure well, without immediate complication. Followup chest x-ray obtained, documents catheter tip position at the cavoatrial junction Impression: Successful bedside placement of right arm PICC under sonographic guidance, as described above.
[2017-01-04 16:00] VITALS: BP 104/68
[2017-01-04] MEDS ORDERED: Tubing IV Secondary IV ONE (17:41)
[2017-01-04] MEDS ORDERED: NS 275ml ONE (17:41)
[2017-01-04 20:00] VITALS: BP_SYST 112; BP_SYST 136; BP_DIAS 70; BP_DIAS 71
[2017-01-05] VITALS: BP 138/78
[2017-01-05 04:00] VITALS: BP 130/97
[2017-01-05] MEDS: Piperacillin/Tazobactam 3.375 GM in NS 110 ML IVPB SCH ×3 (05:52→21:40)
[2017-01-05 08:00] VITALS: BP 101/69
--- NOTE | 2017-01-05 09:01 | Pulmonology Progress Note ---
Assessment/Plan Problems: (1) Severe sepsis (2) Acute on chronic respiratory failure (3) UTI (urinary tract infection) (4) Feeding by G-tube (5) Anoxic encephalopathy syndrome (6) Anemia, chronic disease Respiratory: monitor respiratory rate, adjust FIO2, CXR Cardiac: continue to monitor HR/BP Renal: F/U I&O, keep IV fluid Infectious Disease: check cultures Gastrointestinal: continue feedings/current rate Endocrine: monitor blood sugar, check TSH, continue sliding scale insulin Hematologic: monitor H/H, transfuse if hgb<8.5 Neurologic: PRN Morphine, keep patient comfortable Affect: PRN ativan Prophylaxis: Protonix, Heparin Time Spent (Minutes): 40 Notes Reviewed: renal Discussed with: nurses, consultants, case operator Subjective ROS Limited/Unobtainable: No Constitutional: Reports: no symptoms HEENT: Repors: no symptoms Allergies: Coded Allergies: CODEINE (Verified Allergy, Unknown, 11/15/16) Objective Last 24 Hour Vital Signs Date Time Temp Pulse Resp B/P Pulse Ox O2 Delivery O2 Flow Rate FiO2 01/05/17 08:00 40 01/05/17 08:00 97.0 69 20 101/69 100 Mechanical Ventilator 40 01/05/17 07:10 76 15 40 01/05/17 05:11 79 12 40 01/05/17 04:00 97.3 81 14 130/97 100 Mechanical Ventilator 40 01/05/17 04:00 40 01/05/17 04:00 75 01/05/17 03:12 87 12 40 01/05/17 00:44 102 15 40 01/05/17 00:00 103 01/05/17 00:00 40 01/05/17 00:00 98.4 92 15 138/78 100 Mechanical Ventilator 40 01/04/17 23:01 91 22 40 01/04/17 20:00 40 01/04/17 20:00 99.2 97 21 112/71 100 Mechanical Ventilator 40 01/04/17 20:00 88 01/04/17 18:52 99 26 40 01/04/17 17:05 70 13 40 01/04/17 16:00 40 01/04/17 16:00 97.7 72 12 104/68 100 Mechanical Ventilator 40 01/04/17 15:19 75 01/04/17 15:11 68 13 40 01/04/17 12:34 67 13 40 01/04/17 12:22 77 01/04/17 12:00 97.5 65 13 89/62 100 Mechanical Ventilator 40 01/04/17 12:00 40 01/04/17 10:31 63 13 40 01/04/17 10:30 40 Intake and Output 01/04/17 01/05/17 19:00 07:00 Intake Total 1472.5 ml 417.5 ml Output Total 1200 ml 200 ml Balance 272.5 ml 217.5 ml IV Total 692.5 ml 137.5 ml Tube Feeding 660 ml 220 ml Other 120 ml 60 ml Output Urine Total 1200 ml 200 ml # Bowel Movements 2 3 General Appearance: WD/WN HEENT: normocephalic, atraumatic, status post trach Respiratory/Chest: chest wall non-tender, lungs clear Cardiovascular: normal peripheral pulses, normal rate Abdomen: normal bowel sounds, soft, non tender Genitourinary: normal external genitalia Extremities: no cyanosis, no clubbing Skin: no rash, no ulcers Microbiology Date/Time Source Procedure Growth Status 01/02/17 11:30 Sputum Gram Stain - Final Resulted 01/02/17 11:30 Sputum Culture - Preliminary Gram Negative Fahad Resulted Current Medications Medications (Trade) Dose Ordered Sig/Romelia Route PRN Reason Start Time Stop Time Status Last Admin Dose Admin Acetaminophen (Tylenol) 650 mg Q4H PRN GT FEVER>100.5 01/02/17 08:00 02/01/17 07:59 Albuterol/ Ipratropium (DuoNeb 0.5-3(2.5)mg/3ml) 3 ml Q4H PRN HHN Shortness of Breath 01/02/17 08:00 01/07/17 07:59 Carbamazepine (TEGretol) 200 mg Q12HR GT 01/02/17 21:00 02/01/17 20:59 01/04/17 21:47 Chlorhexidine Gluconate (Natalie-Hex 2%) 1 applic DAILY TOPIC 01/05/17 09:00 02/04/17 08:59 Cyclobenzaprine HCl (Flexeril) 5 mg THREE TIMES A DAY GT 01/02/17 09:00 02/01/17 08:59 01/04/17 17:02 Dextrose STAT PRN IV Hypoglycemia 01/02/17 08:00 02/01/17 07:59 Heparin Sodium (Porcine) (Heparin 5000 units/ml) 5,000 units EVERY 12 HOURS SUBQ 01/02/17 09:00 02/01/17 08:59 01/04/17 21:46 Heparin Sodium/ Sodium Chloride (Heparin 2000 units/Ns 1000ml premix) 2,000 unit ONCE PRN INJ PICC PLACEMENT 01/04/17 13:30 01/05/17 23:59 Lactulose (Cephulac) 20 gm DAILY GT 01/02/17 09:00 02/01/17 08:59 01/04/17 09:07 Lamotrigine (LaMICtal) 150 mg DAILY GT 01/02/17 09:00 02/01/17 08:59 01/04/17 09:04 Levetiracetam (Keppra) 1,500 mg Q12HR GT 01/04/17 09:00 02/01/17 08:59 01/04/17 21:47 Lidocaine HCl (Xylocaine 1% 30ml) 30 ml ONCE PRN INJ PICC PLACEMENT 01/04/17 13:30 01/05/17 23:59 Lorazepam (Ativan 2mg/ml 1ml) 2 mg Q2H PRN IV For Anxiety 01/02/17 08:00 01/09/17 07:59 01/04/17 05:46 Ondansetron HCl (Zofran) 4 mg Q6H PRN IVP Nausea & Vomiting 01/02/17 08:00 02/01/17 07:59 Pantoprazole (Protonix) 40 mg DAILY IV 01/02/17 09:00 02/01/17 08:59 01/04/17 09:07 Piperacillin Sod/ Tazobactam Sod/ Sodium Chloride (Zosyn/Sodium Chloride) 110 ml @ 27.5 mls/hr Q8HR IVPB 01/02/17 09:00 01/09/17 08:59 01/05/17 05:52 Polyethylene Glycol (Miralax) 17 gm DAILYPRN PRN GT Constipation 01/02/17 08:00 02/01/17 07:59 Sodium Bicarbonate (Sodium Bicarbonate 4%) 1 ml ONCE PRN INJ PICC PLACEMENT 01/04/17 13:30 01/05/17 23:59 MYCHAL MITCHELL January 05, 2017 09:01
[2017-01-05] MEDS: Pantoprazole Inj IV SCH (09:07)
[2017-01-05] MEDS: LaMICtal 150mg tab GT SCH (09:08)
[2017-01-05] MEDS: Lactulose 20gm/30ml UDC GT SCH (09:08)
[2017-01-05] MEDS: carBAMazepine 200mg tab GT SCH ×2 (09:08→20:53)
[2017-01-05] MEDS: levETIRAcetam 500mg/5ml Liquid GT SCH ×2 (09:08→20:52)
[2017-01-05] MEDS: Heparin 5000 units/ml inj SUBQ SCH ×2 (09:09→20:55)
[2017-01-05] MEDS: Cyclobenzaprine 10mg Tab GT SCH ×3 (09:09→17:34)
[2017-01-05] MEDS: Dyna-Hex 2% Top Sol 8oz TOPIC SCH (09:10)
[2017-01-05 12:00] VITALS: BP 101/70
[2017-01-05] MEDS ORDERED: NS 275ml ONE (14:11)
[2017-01-05] MEDS ORDERED: Tubing IV Secondary IV ONE ×2 (14:11→14:12)
[2017-01-05 15:59] VITALS: BP 112/73
[2017-01-05 20:17] VITALS: BP 134/86
--- NOTE | 2017-01-05 21:42 | Infectious Diseases Prog Note ---
Assessment/Plan Assessment/Plan A: he patient is a 61-year-old male with UTI P Mirabilis ESBL probable Pna SCx : GNR Chest x-ray : creasing right basilar atelectasis. Otherwise, little blade changer 2 days, including persistent retrocardiac consolidation 01/04 Fever, SP Sepsis, Sp leukopenia Elev Alk Ph 01/04 PICC Worsening of mental status, SP History of encephalopathy. Seizure disorder. Ventilator-dependent respiratory failure. Status post PEG. Status post trach. Hypertension. COPD. History of alcoholic liver cirrhosis. History of cocaine abuse in the past PLAN: Merrem d# 1 / DC Zosyn d# 3 ( 01/04 SP vancomycin d# 2 ) Monitor CBC. Monitor BMP. Monitor cultures (blood, sputum). Monitor chest x-ray US of Abd . Subjective Allergies: Coded Allergies: CODEINE (Verified Allergy, Unknown, 11/15/16) Subjective afebrile Objective Vital Signs Last 24 Hour Vital Signs Date Time Temp Pulse Resp B/P Pulse Ox O2 Delivery O2 Flow Rate FiO2 01/05/17 21:11 75 12 40 01/05/17 20:17 96.8 84 19 134/86 99 Mechanical Ventilator 01/05/17 20:00 68 01/05/17 20:00 40 01/05/17 18:54 71 12 40 01/05/17 17:15 74 15 40 01/05/17 16:00 75 01/05/17 16:00 40 01/05/17 15:59 97.6 68 20 112/73 100 Room Air 01/05/17 15:15 72 13 40 01/05/17 13:15 86 23 40 01/05/17 12:00 40 01/05/17 12:00 97.2 70 20 101/70 100 Mechanical Ventilator 40 01/05/17 11:50 66 01/05/17 11:01 69 12 40 01/05/17 09:15 66 12 40 01/05/17 08:00 40 01/05/17 08:00 97.0 69 20 101/69 100 Mechanical Ventilator 40 01/05/17 07:49 99 01/05/17 07:10 76 15 40 01/05/17 05:11 79 12 40 01/05/17 04:00 97.3 81 14 130/97 100 Mechanical Ventilator 40 01/05/17 04:00 40 01/05/17 04:00 75 01/05/17 03:12 87 12 40 01/05/17 00:44 102 15 40 01/05/17 00:00 103 01/05/17 00:00 40 01/05/17 00:00 98.4 92 15 138/78 100 Mechanical Ventilator 40 01/04/17 23:01 91 22 40 Height (Feet): 5 Height (Inches): 4.00 Weight (Pounds): 180 HEENT: anicteric Respiratory/Chest: no respiratory distress Cardiovascular: regular rhythm Abdomen: no mass Current Medications Medications (Trade) Dose Ordered Sig/Romelia Route PRN Reason Start Time Stop Time Status Last Admin Dose Admin Acetaminophen (Tylenol) 650 mg Q4H PRN GT FEVER>100.5 01/02/17 08:00 02/01/17 07:59 Albuterol/ Ipratropium (DuoNeb 0.5-3(2.5)mg/3ml) 3 ml Q4H PRN HHN Shortness of Breath 01/02/17 08:00 01/07/17 07:59 Carbamazepine (TEGretol) 200 mg Q12HR GT 01/02/17 21:00 02/01/17 20:59 01/05/17 20:53 Chlorhexidine Gluconate (Natalie-Hex 2%) 1 applic DAILY TOPIC 01/05/17 09:00 02/04/17 08:59 01/05/17 09:10 Cyclobenzaprine HCl (Flexeril) 5 mg THREE TIMES A DAY GT 01/02/17 09:00 02/01/17 08:59 01/05/17 17:34 Dextrose STAT PRN IV Hypoglycemia 01/02/17 08:00 02/01/17 07:59 Heparin Sodium (Porcine) (Heparin 5000 units/ml) 5,000 units EVERY 12 HOURS SUBQ 01/02/17 09:00 02/01/17 08:59 01/05/17 20:55 Heparin Sodium/ Sodium Chloride (Heparin 2000 units/Ns 1000ml premix) 2,000 unit ONCE PRN INJ PICC PLACEMENT 01/04/17 13:30 01/05/17 23:59 Lactulose (Cephulac) 20 gm DAILY GT 01/02/17 09:00 02/01/17 08:59 01/05/17 09:08 Lamotrigine (LaMICtal) 150 mg DAILY GT 01/02/17 09:00 02/01/17 08:59 01/05/17 09:08 Levetiracetam (Keppra) 1,500 mg Q12HR GT 01/04/17 09:00 02/01/17 08:59 01/05/17 20:52 Lidocaine HCl (Xylocaine 1% 30ml) 30 ml ONCE PRN INJ PICC PLACEMENT 01/04/17 13:30 01/05/17 23:59 Lorazepam (Ativan 2mg/ml 1ml) 2 mg Q2H PRN IV For Anxiety 01/02/17 08:00 01/09/17 07:59 01/04/17 05:46 Ondansetron HCl (Zofran) 4 mg Q6H PRN IVP Nausea & Vomiting 01/02/17 08:00 02/01/17 07:59 Pantoprazole (Protonix) 40 mg DAILY IV 01/02/17 09:00 02/01/17 08:59 01/05/17 09:07 Piperacillin Sod/ Tazobactam Sod/ Sodium Chloride (Zosyn/Sodium Chloride) 110 ml @ 27.5 mls/hr Q8HR IVPB 01/02/17 09:00 01/09/17 08:59 01/05/17 13:03 Polyethylene Glycol (Miralax) 17 gm DAILYPRN PRN GT Constipation 01/02/17 08:00 02/01/17 07:59 Sodium Bicarbonate (Sodium Bicarbonate 4%) 1 ml ONCE PRN INJ PICC PLACEMENT 01/04/17 13:30 01/05/17 23:59 JON TINOCO M.D. January 05, 2017 21:42
[2017-01-05] MEDS: Meropenem 1 GM in NS 110 ML IVPB SCH (22:30)
[2017-01-06] VITALS: BP 126/64
[2017-01-06 04:22] VITALS: BP 103/59
[2017-01-06 04:28] LABS: MEAN CORPUSCULAR HEMOGLOBIN 32.7 PG (27.0-31.0); MEAN CORPUSCULAR HGB CONC 34.5 G/DL (32.0-36.0); MEAN CORPUSCULAR VOLUME 95 FL (80-99); MEAN PLATELET VOLUME 8.1 FL (6.5-10.1); PLATELET COUNT 192 K/UL (150-450); RED BLOOD COUNT 2.52 M/UL (4.70-6.10); WHITE BLOOD COUNT 2.6 K/UL (4.8-10.8)
[2017-01-06 04:40] LABS: ALANINE AMINOTRANSFERASE 18 U/L (3-41); ALBUMIN/GLOBULIN RATIO 0.8 (1.0-2.7); ANION GAP 13 (5-15); ASPARTATE AMINO TRANSFERASE 21 U/L (5-40); CALCIUM 9.2 mg/dL (8.6-10.2); CARBON DIOXIDE 27 mEQ/L (20-30); CHLORIDE 99 mEQ/L (98-107); CREATININE 0.9 mg/dL (0.7-1.2); GLOMERULAR FILTRATION RATE > 60 mL/min (>60); HEMOLYSIS 5; MAGNESIUM 1.5 mg/dL (1.7-2.5); PHOSPHORUS 3.5 mg/dL (2.5-4.8); SODIUM 139 mEQ/L (135-145); TOTAL PROTEIN 6.4 g/dL (6.6-8.7)
[2017-01-06] MEDS: Meropenem 1 GM in NS 110 ML IVPB SCH ×3 (06:23→21:45)
[2017-01-06 07:49] VITALS: BP 92/66
[2017-01-06] MEDS: Cyclobenzaprine 10mg Tab GT SCH ×3 (09:00→18:38)
[2017-01-06] MEDS: LaMICtal 150mg tab GT SCH (09:00)
[2017-01-06] MEDS: Pantoprazole Inj IV SCH (09:00)
[2017-01-06] MEDS: carBAMazepine 200mg tab GT SCH ×2 (09:00→21:17)
[2017-01-06] MEDS: Dyna-Hex 2% Top Sol 8oz TOPIC SCH (09:00)
[2017-01-06] MEDS: Lactulose 20gm/30ml UDC GT SCH (09:00)
[2017-01-06] MEDS: Heparin 5000 units/ml inj SUBQ SCH ×2 (09:00→21:18)
[2017-01-06] MEDS: levETIRAcetam 500mg/5ml Liquid GT SCH ×2 (09:00→21:16)
--- NOTE | 2017-01-06 09:15 | Infectious Diseases Prog Note ---
Assessment/Plan Assessment/Plan A: Sepsis UTI Atelectasis/pneumonia VDRF VRE colonization Anemia Leukopenia P: Continue Meropenem will f/u cultures Subjective ROS Limited/Unobtainable: Yes Allergies: Coded Allergies: CODEINE (Verified Allergy, Unknown, 11/15/16) Objective Vital Signs Last 24 Hour Vital Signs Date Time Temp Pulse Resp B/P Pulse Ox O2 Delivery O2 Flow Rate FiO2 01/06/17 08:00 40 01/06/17 08:00 76 01/06/17 07:49 98.2 68 20 92/66 100 Mechanical Ventilator 40 01/06/17 07:28 66 12 40 01/06/17 05:06 71 12 40 01/06/17 04:22 97.3 72 19 103/59 100 Mechanical Ventilator 01/06/17 04:00 40 01/06/17 03:44 75 01/06/17 03:02 74 12 40 01/06/17 01:00 84 13 40 01/06/17 00:00 40 01/06/17 00:00 97.7 75 17 126/64 100 Mechanical Ventilator 01/06/17 00:00 78 01/05/17 22:56 102 24 40 01/05/17 21:11 75 12 40 01/05/17 20:17 96.8 84 19 134/86 99 Mechanical Ventilator 01/05/17 20:00 68 01/05/17 20:00 40 01/05/17 18:54 71 12 40 01/05/17 17:15 74 15 40 01/05/17 16:00 75 01/05/17 16:00 40 01/05/17 15:59 97.6 68 20 112/73 100 Room Air 01/05/17 15:15 72 13 40 01/05/17 13:15 86 23 40 01/05/17 12:00 40 01/05/17 12:00 97.2 70 20 101/70 100 Mechanical Ventilator 40 01/05/17 11:50 66 01/05/17 11:01 69 12 40 01/05/17 09:15 66 12 40 Height (Feet): 5 Height (Inches): 4.00 Weight (Pounds): 180 HEENT: status post trach Respiratory/Chest: rhonchi - bilaterally, other - on ventilator Cardiovascular: normal rate Abdomen: soft, non tender, other - GT feeding Extremities: other - R arm PICC line Neurologic/Psychiatric: alert, responsive Laboratory Tests Test 01/06/17 03:15 White Blood Count 2.6 K/UL (4.8-10.8) L Red Blood Count 2.52 M/UL (4.70-6.10) L Hemoglobin 8.2 G/DL (14.2-18.0) L Hematocrit 23.9 % (42.0-52.0) L Mean Corpuscular Volume 95 FL (80-99) Mean Corpuscular Hemoglobin 32.7 PG (27.0-31.0) H Mean Corpuscular Hemoglobin Concent 34.5 G/DL (32.0-36.0) Red Cell Distribution Width 13.0 % (11.6-14.8) Platelet Count 192 K/UL (150-450) Mean Platelet Volume 8.1 FL (6.5-10.1) Neutrophils (%) (Auto) % (45.0-75.0) Lymphocytes (%) (Auto) % (20.0-45.0) Monocytes (%) (Auto) % (1.0-10.0) Eosinophils (%) (Auto) % (0.0-3.0) Basophils (%) (Auto) % (0.0-2.0) Sodium Level 139 mEQ/L (135-145) Potassium Level 4.0 mEQ/L (3.4-4.9) Chloride Level 99 mEQ/L (98-107) Carbon Dioxide Level 27 mEQ/L (20-30) Anion Gap 13 (5-15) Blood Urea Nitrogen 15 mg/dL (7-23) Creatinine 0.9 mg/dL (0.7-1.2) Estimat Glomerular Filtration Rate > 60 mL/min (>60) Glucose Level 94 mg/dL (74-106) Calcium Level 9.2 mg/dL (8.6-10.2) Phosphorus Level 3.5 mg/dL (2.5-4.8) Magnesium Level 1.5 mg/dL (1.7-2.5) L Total Bilirubin 0.4 mg/dL (0.0-1.2) Aspartate Amino Transf (AST/SGOT) 21 U/L (5-40) Alanine Aminotransferase (ALT/SGPT) 18 U/L (3-41) Alkaline Phosphatase 195 U/L (40-129) H Total Protein 6.4 g/dL (6.6-8.7) L Albumin 2.9 g/dL (3.5-5.2) L Globulin 3.5 g/dL Albumin/Globulin Ratio 0.8 (1.0-2.7) L Current Medications Medications (Trade) Dose Ordered Sig/Romelia Route PRN Reason Start Time Stop Time Status Last Admin Dose Admin Acetaminophen (Tylenol) 650 mg Q4H PRN GT FEVER>100.5 01/02/17 08:00 02/01/17 07:59 Albuterol/ Ipratropium (DuoNeb 0.5-3(2.5)mg/3ml) 3 ml Q4H PRN HHN Shortness of Breath 01/02/17 08:00 01/07/17 07:59 Carbamazepine (TEGretol) 200 mg Q12HR GT 01/02/17 21:00 02/01/17 20:59 01/05/17 20:53 Chlorhexidine Gluconate 1 applic 1 applic DAILY TOPIC 01/05/17 09:00 02/04/17 08:59 01/05/17 09:10 Cyclobenzaprine HCl (Flexeril) 5 mg THREE TIMES A DAY GT 01/02/17 09:00 02/01/17 08:59 01/05/17 17:34 Dextrose (Dextrose 50%) STAT PRN IV Hypoglycemia 01/02/17 08:00 02/01/17 07:59 Heparin Sodium (Porcine) (Heparin 5000 units/ml) 5,000 units EVERY 12 HOURS SUBQ 01/02/17 09:00 02/01/17 08:59 01/05/17 20:55 Lactulose (Cephulac) 20 gm DAILY GT 01/02/17 09:00 02/01/17 08:59 01/05/17 09:08 Lamotrigine (LaMICtal) 150 mg DAILY GT 01/02/17 09:00 02/01/17 08:59 01/05/17 09:08 Levetiracetam (Keppra) 1,500 mg Q12HR GT 01/04/17 09:00 02/01/17 08:59 01/05/17 20:52 Lorazepam (Ativan 2mg/ml 1ml) 2 mg Q2H PRN IV For Anxiety 01/02/17 08:00 01/09/17 07:59 01/04/17 05:46 Magnesium Sulfate (Magnesium Sulfate 1gm/100ml) 100 ml @ 100 mls/hr Q1H IVPB 01/06/17 08:45 01/06/17 10:44 Meropenem 1 gm/ Sodium Chloride 110 ml @ 220 mls/hr Q8HR IVPB 01/05/17 23:00 01/10/17 22:59 01/06/17 06:23 Ondansetron HCl (Zofran) 4 mg Q6H PRN IVP Nausea & Vomiting 01/02/17 08:00 02/01/17 07:59 Pantoprazole (Protonix) 40 mg DAILY IV 01/02/17 09:00 02/01/17 08:59 01/05/17 09:07 Polyethylene Glycol (Miralax) 17 gm DAILYPRN PRN GT Constipation 01/02/17 08:00 02/01/17 07:59 ANDRZEJ JAMES January 06, 2017 09:15
--- NOTE | 2017-01-06 09:34 | Diagnostic Imaging Report ---
Indication:Abdominal pain Technique: Grayscale and duplex Doppler imaging of the abdomen performed. Comparison: None Findings: The liver, demonstrated part of the pancreas, aorta and IVC, both kidneys, spleen appear unremarkable. Gallstones are noted. Sonographic Scruggs's is negative per technologist. CBD is 6 mm. There is no biliary ductal dilatation identified. Doppler evaluation of the main portal vein shows patency. There is no ascites. No hydronephrosis seen. Impression: Cholelithiasis
[2017-01-06 12:08] VITALS: BP 94/66
--- NOTE | 2017-01-06 13:59 | Pulmonology Progress Note ---
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 Discussed with: nurses, consultants, outsole caser Subjective ROS Limited/Unobtainable: No Constitutional: Reports: no symptoms HEENT: Repors: no symptoms Respiratory: Reports: other Cardiovascular: Reports: no symptoms Allergies: Coded Allergies: CODEINE (Verified Allergy, Unknown, 11/15/16) Objective Last 24 Hour Vital Signs Date Time Temp Pulse Resp B/P Pulse Ox O2 Delivery O2 Flow Rate FiO2 01/06/17 13:50 40 01/06/17 13:05 71 22 40 01/06/17 12:30 40 01/06/17 12:08 97.6 75 20 94/66 99 Mechanical Ventilator 40 01/06/17 12:00 79 01/06/17 12:00 40 01/06/17 11:08 77 13 40 01/06/17 10:00 98.2 01/06/17 09:10 74 15 40 01/06/17 08:00 40 01/06/17 08:00 76 01/06/17 07:49 98.2 68 20 92/66 100 Mechanical Ventilator 40 01/06/17 07:28 66 12 40 01/06/17 05:06 71 12 40 01/06/17 04:22 97.3 72 19 103/59 100 Mechanical Ventilator 01/06/17 04:00 40 01/06/17 03:44 75 01/06/17 03:02 74 12 40 01/06/17 01:00 84 13 40 01/06/17 00:00 40 01/06/17 00:00 97.7 75 17 126/64 100 Mechanical Ventilator 01/06/17 00:00 78 01/05/17 22:56 102 24 40 01/05/17 21:11 75 12 40 01/05/17 20:17 96.8 84 19 134/86 99 Mechanical Ventilator 01/05/17 20:00 68 01/05/17 20:00 40 01/05/17 18:54 71 12 40 01/05/17 17:15 74 15 40 01/05/17 16:00 75 01/05/17 16:00 40 01/05/17 15:59 97.6 68 20 112/73 100 Room Air 01/05/17 15:15 72 13 40 Intake and Output 01/05/17 01/06/17 19:00 07:00 Intake Total 747.5 ml 1080 ml Output Total 1400 ml 725 ml Balance -652.5 ml 355 ml Intake Free Water 30 ml 200 ml IV Total 192.5 ml 220 ml Tube Feeding 495 ml 660 ml Other 30 ml Output Urine Total 1400 ml 725 ml # Voids 1 1 # Bowel Movements 1 General Appearance: WD/WN HEENT: normocephalic, atraumatic Respiratory/Chest: chest wall non-tender, lungs clear Cardiovascular: normal peripheral pulses, normal rate Abdomen: normal bowel sounds, soft, non tender, no organomegaly Extremities: no cyanosis, no clubbing Skin: no lesions Neurologic/Psychiatric: lead sprinkler II-XII grossly normal, oriented x 3 Lymphatic: no neck adenopathy Laboratory Tests 01/06/17 03:15: White Blood Count 2.6L, Red Blood Count 2.52L, Hemoglobin 8.2L, Hematocrit 23.9L , Mean Corpuscular Volume 95, Mean Corpuscular Hemoglobin 32.7H, Mean Corpuscular Hemoglobin Concent 34.5, Red Cell Distribution Width 13.0, Platelet Count 192, Mean Platelet Volume 8.1, Neutrophils (%) (Auto) , Lymphocytes (%) ( Auto) , Monocytes (%) (Auto) , Eosinophils (%) (Auto) , Basophils (%) (Auto) , Sodium Level 139, Potassium Level 4.0, Chloride Level 99, Carbon Dioxide Level 27, Anion Gap 13, Blood Urea Nitrogen 15, Creatinine 0.9, Estimat Glomerular Filtration Rate > 60, Glucose Level 94, Calcium Level 9.2, Phosphorus Level 3.5 , Magnesium Level 1.5L, Total Bilirubin 0.4, Aspartate Amino Transf (AST/SGOT) 21, Alanine Aminotransferase (ALT/SGPT) 18, Alkaline Phosphatase 195H, Total Protein 6.4L, Albumin 2.9L, Globulin 3.5, Albumin/Globulin Ratio 0.8L Current Medications Medications (Trade) Dose Ordered Sig/Romelia Route PRN Reason Start Time Stop Time Status Last Admin Dose Admin Acetaminophen (Tylenol) 650 mg Q4H PRN GT FEVER>100.5 01/02/17 08:00 02/01/17 07:59 Albuterol/ Ipratropium (DuoNeb 0.5-3(2.5)mg/3ml) 3 ml Q4H PRN HHN Shortness of Breath 01/02/17 08:00 01/07/17 07:59 Carbamazepine (TEGretol) 200 mg Q12HR GT 01/02/17 21:00 02/01/17 20:59 01/06/17 09:00 Chlorhexidine Gluconate 1 applic 1 applic DAILY TOPIC 01/05/17 09:00 02/04/17 08:59 01/06/17 09:00 Cyclobenzaprine HCl (Flexeril) 5 mg THREE TIMES A DAY GT 01/02/17 09:00 02/01/17 08:59 01/06/17 13:09 Dextrose (Dextrose 50%) STAT PRN IV Hypoglycemia 01/02/17 08:00 02/01/17 07:59 Heparin Sodium (Porcine) (Heparin 5000 units/ml) 5,000 units EVERY 12 HOURS SUBQ 01/02/17 09:00 02/01/17 08:59 01/06/17 09:00 Lactulose (Cephulac) 20 gm DAILY GT 01/02/17 09:00 02/01/17 08:59 01/06/17 09:00 Lamotrigine (LaMICtal) 150 mg DAILY GT 01/02/17 09:00 02/01/17 08:59 01/06/17 09:00 Levetiracetam (Keppra) 1,500 mg Q12HR GT 01/04/17 09:00 02/01/17 08:59 01/06/17 09:00 Lorazepam (Ativan 2mg/ml 1ml) 2 mg Q2H PRN IV For Anxiety 01/02/17 08:00 01/09/17 07:59 01/04/17 05:46 Meropenem/Sodium Chloride (Merrem/Sodium Chloride) 110 ml @ 220 mls/hr Q8HR IVPB 01/05/17 23:00 6/1/17 22:59 01/06/17 13:31 Ondansetron HCl (Zofran) 4 mg Q6H PRN IVP Nausea & Vomiting 01/02/17 08:00 02/01/17 07:59 Pantoprazole (Protonix) 40 mg DAILY IV 01/02/17 09:00 02/01/17 08:59 01/06/17 09:00 Polyethylene Glycol (Miralax) 17 gm DAILYPRN PRN GT Constipation 01/02/17 08:00 02/01/17 07:59 MYCHAL MITCHELL January 06, 2017 13:59
[2017-01-06] MEDS ORDERED: Amikacin Rx to dose MISC PRN (15:00)
[2017-01-06 16:17] VITALS: BP 100/71
[2017-01-06] MEDS ORDERED: Tubing IV Secondary IV ONE (16:30)
[2017-01-06] MEDS ORDERED: NS 275ml ONE (16:30)
[2017-01-06] MEDS ORDERED: AMIKACIN IV SCH (17:00)
[2017-01-06] MEDS ORDERED: NS IV SCH (17:00)
[2017-01-06 20:00] VITALS: BP 121/73
[2017-01-06] MEDS: Amikacin for Inhalation 2ML INH SCH (22:00)
[2017-01-07] VITALS: BP 121/59
[2017-01-07 04:00] VITALS: BP 105/72
[2017-01-07 05:24] LABS: BASOPHILS % (AUTO) 0.8 % (0.0-2.0); EOSINOPHILS % (AUTO) 5.5 % (0.0-3.0); LYMPHOCYTES % (AUTO) 25.9 % (20.0-45.0); MEAN CORPUSCULAR HEMOGLOBIN 33.2 PG (27.0-31.0); MEAN CORPUSCULAR HGB CONC 34.6 G/DL (32.0-36.0); MEAN CORPUSCULAR VOLUME 96 FL (80-99); MEAN PLATELET VOLUME 8.1 FL (6.5-10.1); MONOCYTES % (AUTO) 11.4 % (1.0-10.0); NEUTROPHILS % (AUTO) 56.3 % (45.0-75.0); PLATELET COUNT 196 K/UL (150-450); RED BLOOD COUNT 2.51 M/UL (4.70-6.10); RED CELL DISTRIBUTION WIDTH 13.6 % (11.6-14.8); WHITE BLOOD COUNT 5.7 K/UL (4.8-10.8)
[2017-01-07 05:52] LABS: ALANINE AMINOTRANSFERASE 17 U/L (3-41); ALBUMIN/GLOBULIN RATIO 0.9 (1.0-2.7); ANION GAP 13 (5-15); ASPARTATE AMINO TRANSFERASE 19 U/L (5-40); CALCIUM 9.1 mg/dL (8.6-10.2); CARBON DIOXIDE 27 mEQ/L (20-30); CHLORIDE 102 mEQ/L (98-107); CREATININE 0.9 mg/dL (0.7-1.2); GLOMERULAR FILTRATION RATE > 60 mL/min (>60); HEMOLYSIS 0; MAGNESIUM 1.6 mg/dL (1.7-2.5); PHOSPHORUS 3.3 mg/dL (2.5-4.8); SODIUM 142 mEQ/L (135-145); TOTAL PROTEIN 6.3 g/dL (6.6-8.7)
[2017-01-07] MEDS: Meropenem 1 GM in NS 110 ML IVPB SCH ×3 (06:15→21:30)
[2017-01-07 08:30] VITALS: BP 92/63
[2017-01-07] MEDS: Amikacin for Inhalation 2ML INH SCH ×2 (09:15→23:44)
[2017-01-07] MEDS: Lactulose 20gm/30ml UDC GT SCH (09:34)
[2017-01-07] MEDS: Dyna-Hex 2% Top Sol 8oz TOPIC SCH (09:36)
[2017-01-07] MEDS: Cyclobenzaprine 10mg Tab GT SCH ×3 (09:36→18:21)
[2017-01-07] MEDS: Pantoprazole Inj IV SCH (09:37)
[2017-01-07] MEDS: LaMICtal 150mg tab GT SCH (09:37)
[2017-01-07] MEDS: carBAMazepine 200mg tab GT SCH ×2 (09:37→20:47)
[2017-01-07] MEDS: levETIRAcetam 500mg/5ml Liquid GT SCH ×2 (09:37→20:47)
[2017-01-07] MEDS: Heparin 5000 units/ml inj SUBQ SCH ×2 (09:40→20:49)
[2017-01-07 11:57] VITALS: BP 98/71
--- NOTE | 2017-01-07 13:10 | Infectious Diseases Prog Note ---
Assessment/Plan Assessment/Plan A: he patient is a 61-year-old male with UTI P Mirabilis ESBL probable Pna SCx : PSA, St Maltophilia , StrpGrG Chest x-ray : creasing right basilar atelectasis. Otherwise, little cell changer 2 days, including persistent retrocardiac consolidation 01/04 Fever, SP Sepsis, Sp leukopenia Elev Alk Ph US of Abd : Cholelithiasis 01/04 PICC Worsening of mental status, SP History of encephalopathy. Seizure disorder. Ventilator-dependent respiratory failure. Status post PEG. Status post trach. Hypertension. COPD. History of alcoholic liver cirrhosis. History of cocaine abuse in the past PLAN: Merrem d# 3 / , Levaquin d# , Amikacin d# 2 / DC Zosyn d# 3 ( 01/04 SP vancomycin d# 2 ) Monitor CBC. Monitor BMP. Monitor cultures (blood, sputum). Monitor chest x-ray Subjective Allergies: Coded Allergies: CODEINE (Verified Allergy, Unknown, 11/15/16) Subjective no acute event Objective Vital Signs Last 24 Hour Vital Signs Date Time Temp Pulse Resp B/P Pulse Ox O2 Delivery O2 Flow Rate FiO2 01/07/17 12:58 87 16 40 01/07/17 12:00 40 01/07/17 11:57 97.8 68 19 98/71 100 Trach Collar 01/07/17 10:53 89 20 40 01/07/17 09:33 67 16 100 Mechanical Ventilator 40 01/07/17 09:18 69 14 100 Mechanical Ventilator 40 01/07/17 09:16 63 12 40 01/07/17 08:30 97.7 64 19 92/63 99 Trach Collar 01/07/17 08:00 63 01/07/17 08:00 40 01/07/17 07:12 65 17 40 01/07/17 05:33 68 12 40 01/07/17 04:00 81 01/07/17 04:00 40 01/07/17 04:00 97.5 67 12 105/72 100 Mechanical Ventilator 40 01/07/17 03:15 67 12 40 01/07/17 00:41 88 16 40 01/07/17 00:00 97.5 77 12 121/59 100 Mechanical Ventilator 40 01/07/17 00:00 70 01/07/17 00:00 40 01/06/17 21:37 94 12 40 01/06/17 20:00 80 01/06/17 20:00 40 01/06/17 20:00 97.5 91 13 121/73 100 Mechanical Ventilator 40 01/06/17 19:33 98.0 01/06/17 19:28 86 12 40 01/06/17 17:14 77 17 40 01/06/17 16:17 97.9 78 20 100/71 100 Mechanical Ventilator 40 01/06/17 16:00 72 01/06/17 15:16 68 18 40 01/06/17 13:50 40 Height (Feet): 5 Height (Inches): 4.00 Weight (Pounds): 180 HEENT: anicteric Respiratory/Chest: normal breath sounds Cardiovascular: regular rhythm Abdomen: no organomegaly Laboratory Tests Test 01/07/17 04:45 White Blood Count 5.7 K/UL (4.8-10.8) # Red Blood Count 2.51 M/UL (4.70-6.10) L Hemoglobin 8.3 G/DL (14.2-18.0) L Hematocrit 24.0 % (42.0-52.0) L Mean Corpuscular Volume 96 FL (80-99) Mean Corpuscular Hemoglobin 33.2 PG (27.0-31.0) H Mean Corpuscular Hemoglobin Concent 34.6 G/DL (32.0-36.0) Red Cell Distribution Width 13.6 % (11.6-14.8) Platelet Count 196 K/UL (150-450) Mean Platelet Volume 8.1 FL (6.5-10.1) Neutrophils (%) (Auto) 56.3 % (45.0-75.0) Lymphocytes (%) (Auto) 25.9 % (20.0-45.0) Monocytes (%) (Auto) 11.4 % (1.0-10.0) H Eosinophils (%) (Auto) 5.5 % (0.0-3.0) H Basophils (%) (Auto) 0.8 % (0.0-2.0) Sodium Level 142 mEQ/L (135-145) Potassium Level 4.0 mEQ/L (3.4-4.9) Chloride Level 102 mEQ/L (98-107) Carbon Dioxide Level 27 mEQ/L (20-30) Anion Gap 13 (5-15) Blood Urea Nitrogen 13 mg/dL (7-23) Creatinine 0.9 mg/dL (0.7-1.2) Estimat Glomerular Filtration Rate > 60 mL/min (>60) Glucose Level 97 mg/dL (74-106) Calcium Level 9.1 mg/dL (8.6-10.2) Phosphorus Level 3.3 mg/dL (2.5-4.8) Magnesium Level 1.6 mg/dL (1.7-2.5) L Total Bilirubin 0.4 mg/dL (0.0-1.2) Aspartate Amino Transf (AST/SGOT) 19 U/L (5-40) Alanine Aminotransferase (ALT/SGPT) 17 U/L (3-41) Alkaline Phosphatase 181 U/L (40-129) H Total Protein 6.3 g/dL (6.6-8.7) L Albumin 3.0 g/dL (3.5-5.2) L Globulin 3.3 g/dL Albumin/Globulin Ratio 0.9 (1.0-2.7) L Current Medications Medications (Trade) Dose Ordered Sig/Romelia Route PRN Reason Start Time Stop Time Status Last Admin Dose Admin Acetaminophen (Tylenol) 650 mg Q4H PRN GT FEVER>100.5 01/02/17 08:00 02/01/17 07:59 Amikacin Sulfate 500 mg 500 mg Q12HR@10,22 INH 01/06/17 22:00 01/13/17 21:59 01/07/17 09:15 Carbamazepine (TEGretol) 200 mg Q12HR GT 01/02/17 21:00 02/01/17 20:59 01/07/17 09:37 Chlorhexidine Gluconate 1 applic 1 applic DAILY TOPIC 01/05/17 09:00 02/04/17 08:59 01/07/17 09:36 Cyclobenzaprine HCl (Flexeril) 5 mg THREE TIMES A DAY GT 01/02/17 09:00 02/01/17 08:59 01/07/17 09:36 Dextrose (Dextrose 50%) STAT PRN IV Hypoglycemia 01/02/17 08:00 02/01/17 07:59 Heparin Sodium (Porcine) (Heparin 5000 units/ml) 5,000 units EVERY 12 HOURS SUBQ 01/02/17 09:00 02/01/17 08:59 01/07/17 09:40 Lactulose (Cephulac) 20 gm DAILY GT 01/02/17 09:00 02/01/17 08:59 01/07/17 09:34 Lamotrigine (LaMICtal) 150 mg DAILY GT 01/02/17 09:00 02/01/17 08:59 01/07/17 09:37 Levetiracetam (Keppra) 1,500 mg Q12HR GT 01/04/17 09:00 02/01/17 08:59 01/07/17 09:37 Levofloxacin (Levaquin) 750 mg Q24H GT 01/06/17 18:00 01/13/17 17:59 01/06/17 18:37 Lorazepam (Ativan 2mg/ml 1ml) 2 mg Q2H PRN IV For Anxiety 01/02/17 08:00 01/09/17 07:59 01/04/17 05:46 Magnesium Sulfate (Magnesium Sulfate 1gm/100ml) 100 ml @ 100 mls/hr Q1H IVPB 01/07/17 12:30 01/07/17 14:29 01/07/17 12:47 Meropenem/Sodium Chloride (Merrem/Sodium Chloride) 110 ml @ 220 mls/hr Q8HR IVPB 01/05/17 23:00 01/10/17 22:59 01/07/17 06:15 Ondansetron HCl (Zofran) 4 mg Q6H PRN IVP Nausea & Vomiting 01/02/17 08:00 02/01/17 07:59 Pantoprazole (Protonix) 40 mg DAILY IV 01/02/17 09:00 02/01/17 08:59 01/07/17 09:37 Polyethylene Glycol (Miralax) 17 gm DAILYPRN PRN GT Constipation 01/02/17 08:00 02/01/17 07:59 JON TINOCO M.D. January 07, 2017 13:10
--- NOTE | 2017-01-07 16:03 | Pulmonology Progress Note ---
Assessment/Plan Problems: (1) Severe sepsis (2) Acute on chronic respiratory failure (3) UTI (urinary tract infection) (4) Feeding by G-tube (5) Anoxic encephalopathy syndrome (6) Anemia, chronic disease Respiratory: monitor respiratory rate, adjust FIO2 Cardiac: continue pressors, continue to monitor HR/BP, d/c nurse monitoring Renal: F/U I&O, keep IV fluid Infectious Disease: check cultures Gastrointestinal: continue feedings/current rate, hold feedings Endocrine: monitor blood sugar, check TSH, check HgA1C Hematologic: monitor H/H Neurologic: PRN Ativan, PRN Morphine Prophylaxis: Protonix, Heparin Time Spent (Minutes): 40 Notes Reviewed: program planner, cardio Discussed with: nurses, consultants, renal case manager Subjective ROS Limited/Unobtainable: No Constitutional: Reports: no symptoms HEENT: Repors: no symptoms Respiratory: Reports: no symptoms Cardiovascular: Reports: no symptoms Gastrointestinal/Abdominal: Reports: no symptoms Allergies: Coded Allergies: CODEINE (Verified Allergy, Unknown, 11/15/16) Objective Last 24 Hour Vital Signs Date Time Temp Pulse Resp B/P Pulse Ox O2 Delivery O2 Flow Rate FiO2 01/07/17 15:13 70 19 40 01/07/17 12:58 87 16 40 01/07/17 12:00 40 01/07/17 12:00 65 01/07/17 11:57 97.8 68 19 98/71 100 Trach Collar 01/07/17 10:53 89 20 40 01/07/17 09:33 67 16 100 Mechanical Ventilator 40 01/07/17 09:18 69 14 100 Mechanical Ventilator 40 01/07/17 09:16 63 12 40 01/07/17 08:30 97.7 64 19 92/63 99 Trach Collar 01/07/17 08:00 63 01/07/17 08:00 40 01/07/17 07:12 65 17 40 01/07/17 05:33 68 12 40 01/07/17 04:00 81 01/07/17 04:00 40 01/07/17 04:00 97.5 67 12 105/72 100 Mechanical Ventilator 40 01/07/17 03:15 67 12 40 01/07/17 00:41 88 16 40 01/07/17 00:00 97.5 77 12 121/59 100 Mechanical Ventilator 40 01/07/17 00:00 70 01/07/17 00:00 40 01/06/17 21:37 94 12 40 01/06/17 20:00 80 01/06/17 20:00 40 01/06/17 20:00 97.5 91 13 121/73 100 Mechanical Ventilator 40 01/06/17 19:33 98.0 01/06/17 19:28 86 12 40 01/06/17 17:14 77 17 40 01/06/17 16:17 97.9 78 20 100/71 100 Mechanical Ventilator 40 Intake and Output 01/06/17 01/07/17 19:00 07:00 Intake Total 1150 ml 1025 ml Output Total 400 ml 625 ml Balance 750 ml 400 ml Intake Free Water 150 ml 200 ml IV Total 310 ml 220 ml Tube Feeding 660 ml 605 ml Other 30 ml Output Urine Total 400 ml 625 ml # Bowel Movements 4 General Appearance: WD/WN HEENT: normocephalic, atraumatic Respiratory/Chest: chest wall non-tender, lungs clear Cardiovascular: no JVD Abdomen: soft, non tender Genitourinary: normal external genitalia Extremities: no cyanosis Laboratory Tests 01/07/17 04:45: White Blood Count 5.7#, Red Blood Count 2.51L, Hemoglobin 8.3L, Hematocrit 24.0L , Mean Corpuscular Volume 96, Mean Corpuscular Hemoglobin 33.2H, Mean Corpuscular Hemoglobin Concent 34.6, Red Cell Distribution Width 13.6, Platelet Count 196, Mean Platelet Volume 8.1, Neutrophils (%) (Auto) 56.3, Lymphocytes (% ) (Auto) 25.9, Monocytes (%) (Auto) 11.4H, Eosinophils (%) (Auto) 5.5H, Basophils (%) (Auto) 0.8, Sodium Level 142, Potassium Level 4.0, Chloride Level 102, Carbon Dioxide Level 27, Anion Gap 13, Blood Urea Nitrogen 13, Creatinine 0.9, Estimat Glomerular Filtration Rate > 60, Glucose Level 97, Calcium Level 9.1, Phosphorus Level 3.3, Magnesium Level 1.6L, Total Bilirubin 0.4, Aspartate Amino Transf (AST/SGOT) 19, Alanine Aminotransferase (ALT/SGPT) 17, Alkaline Phosphatase 181H, Total Protein 6.3L, Albumin 3.0L, Globulin 3.3, Albumin/ Globulin Ratio 0.9L Current Medications Medications (Trade) Dose Ordered Sig/Romelia Route PRN Reason Start Time Stop Time Status Last Admin Dose Admin Acetaminophen (Tylenol) 650 mg Q4H PRN GT FEVER>100.5 01/02/17 08:00 02/01/17 07:59 Amikacin Sulfate (Amikin) 500 mg Q12HR@10,22 INH 01/06/17 22:00 01/13/17 21:59 01/07/17 09:15 Carbamazepine (TEGretol) 200 mg Q12HR GT 01/02/17 21:00 02/01/17 20:59 01/07/17 09:37 Chlorhexidine Gluconate 1 applic 1 applic DAILY TOPIC 01/05/17 09:00 02/04/17 08:59 01/07/17 09:36 Cyclobenzaprine HCl (Flexeril) 5 mg THREE TIMES A DAY GT 01/02/17 09:00 02/01/17 08:59 01/07/17 14:33 Dextrose (Dextrose 50%) STAT PRN IV Hypoglycemia 01/02/17 08:00 02/01/17 07:59 Heparin Sodium (Porcine) (Heparin 5000 units/ml) 5,000 units EVERY 12 HOURS SUBQ 01/02/17 09:00 02/01/17 08:59 01/07/17 09:40 Lactulose (Cephulac) 20 gm DAILY GT 01/02/17 09:00 02/01/17 08:59 01/07/17 09:34 Lamotrigine (LaMICtal) 150 mg DAILY GT 01/02/17 09:00 02/01/17 08:59 01/07/17 09:37 Levetiracetam (Keppra) 1,500 mg Q12HR GT 01/04/17 09:00 02/01/17 08:59 01/07/17 09:37 Levofloxacin (Levaquin) 750 mg Q24H GT 01/06/17 18:00 01/13/17 17:59 01/06/17 18:37 Lorazepam (Ativan 2mg/ml 1ml) 2 mg Q2H PRN IV For Anxiety 01/02/17 08:00 01/09/17 07:59 01/04/17 05:46 Meropenem/Sodium Chloride (Merrem/Sodium Chloride) 110 ml @ 220 mls/hr Q8HR IVPB 01/05/17 23:00 01/18/17 23:59 01/07/17 14:34 Ondansetron HCl (Zofran) 4 mg Q6H PRN IVP Nausea & Vomiting 01/02/17 08:00 02/01/17 07:59 Pantoprazole (Protonix) 40 mg DAILY IV 01/02/17 09:00 02/01/17 08:59 01/07/17 09:37 Polyethylene Glycol (Miralax) 17 gm DAILYPRN PRN GT Constipation 01/02/17 08:00 02/01/17 07:59 MYCHAL MITCHELL January 07, 2017 16:03
[2017-01-07 16:18] VITALS: BP 97/69
[2017-01-07 20:00] VITALS: BP 104/73
[2017-01-08] VITALS: BP 101/66
[2017-01-08 04:00] VITALS: BP 113/69
[2017-01-08] MEDS: Meropenem 1 GM in NS 110 ML IVPB SCH (05:38)
[2017-01-08 05:44] LABS: MEAN CORPUSCULAR HEMOGLOBIN 29.1 PG (27.0-31.0); MEAN CORPUSCULAR HGB CONC 32.4 G/DL (32.0-36.0); MEAN CORPUSCULAR VOLUME 90 FL (80-99); MEAN PLATELET VOLUME 5.5 FL (6.5-10.1); PLATELET COUNT 399 K/UL (150-450); RED CELL DISTRIBUTION WIDTH 18.3 % (11.6-14.8); WHITE BLOOD COUNT 10.5 K/UL (4.8-10.8)
[2017-01-08 06:06] LABS: ALBUMIN/GLOBULIN RATIO 0.3 (1.0-2.7); CALCIUM 8.8 mg/dL (8.6-10.2); CREATININE 1.6 mg/dL (0.7-1.2); GLOMERULAR FILTRATION RATE 53.2 mL/min (>60); POTASSIUM 3.6 mEQ/L (3.4-4.9); TOTAL PROTEIN 8.5 g/dL (6.6-8.7)
[2017-01-08 08:00] VITALS: BP 99/68
[2017-01-08] MEDS: Lactulose 20gm/30ml UDC GT SCH (08:54)
[2017-01-08] MEDS: Dyna-Hex 2% Top Sol 8oz TOPIC SCH (08:54)
[2017-01-08] MEDS: Pantoprazole Inj IV SCH (08:55)
[2017-01-08] MEDS: Cyclobenzaprine 10mg Tab GT SCH ×3 (08:55→17:05)
[2017-01-08] MEDS: LaMICtal 150mg tab GT SCH (08:55)
[2017-01-08] MEDS: levETIRAcetam 500mg/5ml Liquid GT SCH ×2 (08:55→21:50)
[2017-01-08] MEDS: carBAMazepine 200mg tab GT SCH ×2 (08:55→21:50)
[2017-01-08] MEDS: Heparin 5000 units/ml inj SUBQ SCH ×2 (08:56→21:51)
[2017-01-08] MEDS: Amikacin for Inhalation 2ML INH SCH (09:20)
--- NOTE | 2017-01-08 10:16 | Pulmonology Progress Note ---
Assessment/Plan Problems: (1) Severe sepsis (2) Acute on chronic respiratory failure (3) UTI (urinary tract infection) (4) Feeding by G-tube (5) Anoxic encephalopathy syndrome (6) Anemia, chronic disease Subjective ROS Limited/Unobtainable: No Constitutional: Reports: no symptoms HEENT: Repors: no symptoms Allergies: Coded Allergies: CODEINE (Verified Allergy, Unknown, 11/15/16) Objective Last 24 Hour Vital Signs Date Time Temp Pulse Resp B/P Pulse Ox O2 Delivery O2 Flow Rate FiO2 01/08/17 09:36 70 20 99 Mechanical Ventilator 01/08/17 09:28 69 18 40 01/08/17 08:00 40 01/08/17 08:00 98.2 71 13 99/68 100 Mechanical Ventilator 40 01/08/17 07:08 66 20 40 01/08/17 04:55 66 12 40 01/08/17 04:00 74 01/08/17 04:00 40 01/08/17 04:00 98.4 74 18 113/69 100 Trach Collar 01/08/17 03:30 71 13 40 01/08/17 01:30 90 19 40 01/08/17 01:00 40 01/08/17 00:00 71 01/08/17 00:00 98.7 73 20 101/66 100 Trach Collar 01/08/17 00:00 40 01/07/17 23:30 79 17 40 01/07/17 21:30 75 12 99 Mechanical Ventilator 01/07/17 21:30 72 12 100 Mechanical Ventilator 01/07/17 20:57 80 16 40 01/07/17 20:00 98.1 70 22 104/73 100 Trach Collar 01/07/17 20:00 70 01/07/17 20:00 40 01/07/17 19:30 79 13 40 01/07/17 16:55 80 18 40 01/07/17 16:18 97.0 65 19 97/69 100 Trach Collar 01/07/17 16:00 68 01/07/17 16:00 40 01/07/17 15:13 70 19 40 01/07/17 12:58 87 16 40 01/07/17 12:00 40 01/07/17 12:00 65 01/07/17 11:57 97.8 68 19 98/71 100 Trach Collar 01/07/17 10:53 89 20 40 Intake and Output 01/07/17 01/08/17 19:00 07:00 Intake Total 165 ml 925 ml Output Total 320 ml 360 ml Balance -155 ml 565 ml Intake Free Water 100 ml IV Total 110 ml 220 ml Tube Feeding 55 ml 605 ml Output Urine Total 320 ml 360 ml # Voids 2 Objective General Appearance: WD/WN, no acute distress HEENT: normocephalic, atraumatic Respiratory/Chest: chest wall non-tender, rhonchi, trach intact Cardiovascular: normal peripheral pulses, normal rate Abdomen: normal bowel sounds, soft, non tender Genitourinary: normal external genitalia Extremities: no cyanosis Skin: no lesions Neurologic/Psychiatric: no motor/sensory deficits, alert Lymphatic: no neck adenopathy Laboratory Tests 01/08/17 04:00: White Blood Count 10.5#, Red Blood Count 2.70L, Hemoglobin 7.9L, Hematocrit 24.3L, Mean Corpuscular Volume 90, Mean Corpuscular Hemoglobin 29.1, Mean Corpuscular Hemoglobin Concent 32.4, Red Cell Distribution Width 18.3H, Platelet Count 399#, Mean Platelet Volume 5.5L, Neutrophils (%) (Auto) , Lymphocytes (%) (Auto) , Monocytes (%) (Auto) , Eosinophils (%) (Auto) , Basophils (%) (Auto) , Sodium Level 139, Potassium Level 3.6, Chloride Level 100 , Carbon Dioxide Level 27, Anion Gap 12, Blood Urea Nitrogen 33H, Creatinine 1.6 #H, Estimat Glomerular Filtration Rate 53.2, Glucose Level 162H, Calcium Level 8.8, Total Bilirubin 0.3, Aspartate Amino Transf (AST/SGOT) 13, Alanine Aminotransferase (ALT/SGPT) 9, Alkaline Phosphatase 131H, Pro-B-Type Natriuretic Peptide 3366H, Total Protein 8.5#, Albumin 2.1L, Globulin 6.4, Albumin/Globulin Ratio 0.3L Current Medications Medications (Trade) Dose Ordered Sig/Romelia Route PRN Reason Start Time Stop Time Status Last Admin Dose Admin Acetaminophen (Tylenol) 650 mg Q4H PRN GT FEVER>100.5 01/02/17 08:00 02/01/17 07:59 Amikacin Sulfate (Amikin) 500 mg Q12HR@10,22 INH 01/06/17 22:00 01/13/17 21:59 01/08/17 09:20 Carbamazepine (TEGretol) 200 mg Q12HR GT 01/02/17 21:00 02/01/17 20:59 01/08/17 08:55 Chlorhexidine Gluconate 1 applic 1 applic DAILY TOPIC 01/05/17 09:00 02/04/17 08:59 01/08/17 08:54 Cyclobenzaprine HCl (Flexeril) 5 mg THREE TIMES A DAY GT 01/02/17 09:00 02/01/17 08:59 01/08/17 08:55 Dextrose (Dextrose 50%) STAT PRN IV Hypoglycemia 01/02/17 08:00 02/01/17 07:59 Heparin Sodium (Porcine) (Heparin 5000 units/ml) 5,000 units EVERY 12 HOURS SUBQ 01/02/17 09:00 02/01/17 08:59 01/08/17 08:56 Lactulose (Cephulac) 20 gm DAILY GT 01/02/17 09:00 02/01/17 08:59 01/08/17 08:54 Lamotrigine (LaMICtal) 150 mg DAILY GT 01/02/17 09:00 02/01/17 08:59 01/08/17 08:55 Levetiracetam (Keppra) 1,500 mg Q12HR GT 01/04/17 09:00 02/01/17 08:59 01/08/17 08:55 Levofloxacin (Levaquin) 750 mg Q24H GT 01/06/17 18:00 01/13/17 17:59 01/07/17 18:22 Lorazepam (Ativan 2mg/ml 1ml) 2 mg Q2H PRN IV For Anxiety 01/02/17 08:00 01/09/17 07:59 01/04/17 05:46 Meropenem/Sodium Chloride (Merrem/Sodium Chloride) 110 ml @ 220 mls/hr Q8HR IVPB 01/05/17 23:00 01/18/17 23:59 01/08/17 05:38 Ondansetron HCl (Zofran) 4 mg Q6H PRN IVP Nausea & Vomiting 01/02/17 08:00 02/01/17 07:59 Pantoprazole (Protonix) 40 mg DAILY IV 01/02/17 09:00 02/01/17 08:59 01/08/17 08:55 Polyethylene Glycol (Miralax) 17 gm DAILYPRN PRN GT Constipation 01/02/17 08:00 02/01/17 07:59 MYCHAL MITCHELL January 08, 2017 10:16
--- NOTE | 2017-01-08 11:18 | Diagnostic Imaging Report ---
Indication: DYSPNEA Technique: One view of the chest Comparison: 01/04/2017 Findings: Interim placement right arm PICC. Tracheostomy remains. There is persistent retrocardiac consolidation. Left costophrenic angle is blunted, small effusion may now be present. There is some atelectasis at the right lung base. Right lung and pleural space are otherwise clear. Impression: Increasing right basilar atelectasis. Possible new small left pleural effusion Stable retrocardiac consolidation
[2017-01-08 12:00] VITALS: BP 103/71
--- NOTE | 2017-01-08 12:07 | Infectious Diseases Prog Note ---
Assessment/Plan Assessment/Plan A: he patient is a 61-year-old male with UTI P Mirabilis ESBL probable Pna SCx : PSA, St Maltophilia , StrpGrG Chest x-ray : creasing right basilar atelectasis. 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 2/2 Amikacin ) 01/04 PICC Worsening of mental status, SP History of encephalopathy. Seizure disorder. Ventilator-dependent respiratory failure. Status post PEG. Status post trach. Hypertension. COPD. History of alcoholic liver cirrhosis. History of cocaine abuse in the past PLAN: Merrem d# , Levaquin d# , add Colistin INH , DC Amikacin d# DC Zosyn d# 3 ( 01/04 SP vancomycin d# 2 ) Monitor CBC. Monitor BMP Monitor chest x-ray Subjective Allergies: Coded Allergies: CODEINE (Verified Allergy, Unknown, 11/15/16) Subjective afebrile Objective Vital Signs Last 24 Hour Vital Signs Date Time Temp Pulse Resp B/P Pulse Ox O2 Delivery O2 Flow Rate FiO2 01/08/17 11:10 85 24 40 01/08/17 09:55 74 12 100 Mechanical Ventilator 01/08/17 09:54 98.2 01/08/17 09:36 70 20 99 Mechanical Ventilator 01/08/17 09:28 69 18 40 01/08/17 08:00 40 01/08/17 08:00 98.2 71 13 99/68 100 Mechanical Ventilator 40 01/08/17 08:00 88 01/08/17 07:08 66 20 40 01/08/17 04:55 66 12 40 01/08/17 04:00 74 01/08/17 04:00 40 01/08/17 04:00 98.4 74 18 113/69 100 Trach Collar 01/08/17 03:30 71 13 40 01/08/17 01:30 90 19 40 01/08/17 01:00 40 01/08/17 00:00 71 01/08/17 00:00 98.7 73 20 101/66 100 Trach Collar 01/08/17 00:00 40 01/07/17 23:30 79 17 40 01/07/17 21:30 75 12 99 Mechanical Ventilator 01/07/17 21:30 72 12 100 Mechanical Ventilator 01/07/17 20:57 80 16 40 01/07/17 20:00 98.1 70 22 104/73 100 Trach Collar 01/07/17 20:00 70 01/07/17 20:00 40 01/07/17 19:30 79 13 40 01/07/17 16:55 80 18 40 01/07/17 16:18 97.0 65 19 97/69 100 Trach Collar 01/07/17 16:00 68 01/07/17 16:00 40 01/07/17 15:13 70 19 40 01/07/17 12:58 87 16 40 Height (Feet): 5 Height (Inches): 4.00 Weight (Pounds): 180 HEENT: atraumatic Respiratory/Chest: lungs clear Cardiovascular: regular rhythm Abdomen: normal bowel sounds Laboratory Tests Test 01/08/17 04:00 White Blood Count 10.5 K/UL (4.8-10.8) # Red Blood Count 2.70 M/UL (4.70-6.10) L Hemoglobin 7.9 G/DL (14.2-18.0) L Hematocrit 24.3 % (42.0-52.0) L Mean Corpuscular Volume 90 FL (80-99) Mean Corpuscular Hemoglobin 29.1 PG (27.0-31.0) Mean Corpuscular Hemoglobin Concent 32.4 G/DL (32.0-36.0) Red Cell Distribution Width 18.3 % (11.6-14.8) H Platelet Count 399 K/UL (150-450) # Mean Platelet Volume 5.5 FL (6.5-10.1) L Neutrophils (%) (Auto) % (45.0-75.0) Lymphocytes (%) (Auto) % (20.0-45.0) Monocytes (%) (Auto) % (1.0-10.0) Eosinophils (%) (Auto) % (0.0-3.0) Basophils (%) (Auto) % (0.0-2.0) Sodium Level 139 mEQ/L (135-145) Potassium Level 3.6 mEQ/L (3.4-4.9) Chloride Level 100 mEQ/L (98-107) Carbon Dioxide Level 27 mEQ/L (20-30) Anion Gap 12 (5-15) Blood Urea Nitrogen 33 mg/dL (7-23) H Creatinine 1.6 mg/dL (0.7-1.2) #H Estimat Glomerular Filtration Rate 53.2 mL/min (>60) Glucose Level 162 mg/dL (74-106) H Calcium Level 8.8 mg/dL (8.6-10.2) Total Bilirubin 0.3 mg/dL (0.0-1.2) Aspartate Amino Transf (AST/SGOT) 13 U/L (5-40) Alanine Aminotransferase (ALT/SGPT) 9 U/L (3-41) Alkaline Phosphatase 131 U/L (40-129) H Pro-B-Type Natriuretic Peptide 3366 pg/mL (0-125) H Total Protein 8.5 g/dL (6.6-8.7) # Albumin 2.1 g/dL (3.5-5.2) L Globulin 6.4 g/dL Albumin/Globulin Ratio 0.3 (1.0-2.7) L Current Medications Medications (Trade) Dose Ordered Sig/Romelia Route PRN Reason Start Time Stop Time Status Last Admin Dose Admin Acetaminophen (Tylenol) 650 mg Q4H PRN GT FEVER>100.5 01/02/17 08:00 02/01/17 07:59 Amikacin Sulfate (Amikin) 500 mg Q12HR@10,22 INH 01/06/17 22:00 01/13/17 21:59 01/08/17 09:20 Carbamazepine (TEGretol) 200 mg Q12HR GT 01/02/17 21:00 02/01/17 20:59 01/08/17 08:55 Chlorhexidine Gluconate 1 applic 1 applic DAILY TOPIC 01/05/17 09:00 02/04/17 08:59 01/08/17 08:54 Cyclobenzaprine HCl (Flexeril) 5 mg THREE TIMES A DAY GT 01/02/17 09:00 02/01/17 08:59 01/08/17 08:55 Dextrose (Dextrose 50%) STAT PRN IV Hypoglycemia 01/02/17 08:00 02/01/17 07:59 Heparin Sodium (Porcine) (Heparin 5000 units/ml) 5,000 units EVERY 12 HOURS SUBQ 01/02/17 09:00 02/01/17 08:59 01/08/17 08:56 Lactulose (Cephulac) 20 gm DAILY GT 01/02/17 09:00 02/01/17 08:59 01/08/17 08:54 Lamotrigine (LaMICtal) 150 mg DAILY GT 01/02/17 09:00 02/01/17 08:59 01/08/17 08:55 Levetiracetam (Keppra) 1,500 mg Q12HR GT 01/04/17 09:00 02/01/17 08:59 01/08/17 08:55 Levofloxacin (Levaquin) 750 mg Q24H GT 01/06/17 18:00 01/13/17 17:59 01/07/17 18:22 Lorazepam (Ativan 2mg/ml 1ml) 2 mg Q2H PRN IV For Anxiety 01/02/17 08:00 01/09/17 07:59 01/04/17 05:46 Meropenem/Sodium Chloride (Merrem/Sodium Chloride) 110 ml @ 220 mls/hr Q8HR IVPB 01/05/17 23:00 01/18/17 23:59 01/08/17 05:38 Ondansetron HCl (Zofran) 4 mg Q6H PRN IVP Nausea & Vomiting 01/02/17 08:00 02/01/17 07:59 Pantoprazole (Protonix) 40 mg DAILY IV 01/02/17 09:00 02/01/17 08:59 01/08/17 08:55 Polyethylene Glycol (Miralax) 17 gm DAILYPRN PRN GT Constipation 01/02/17 08:00 02/01/17 07:59 JON TINOCO M.D. January 08, 2017 12:07
--- NOTE | 2017-01-08 15:26 | Consultation ---
Consult Note Consult Note asked to eval for rise in S Cr to 1.6 Past conditions: 1. Possible gastrointestinal bleed. 2. Gastrostomy tube dislodgement/dislocation. 3. Chronic respiratory failure on tracheostomy and ventilator. 4. 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 5. Gastrostomy tube site cellulitis. 6. Alcoholic liver disease. 7. Wound infection with Klebsiella Pneumoniae Carbapenem. 8. Left buttock pressure ulcer stage III, present on admission. . Assessment/Plan current conditions: (1) Severe sepsis (2) Acute on chronic respiratory failure (3) UTI (urinary tract infection) (4) Feeding by G-tube (5) Anoxic encephalopathy syndrome (6) Anemia, chronic disease (7) Sz disorder (8) Anemai Acute renal failure likely multifactorial: - Sepsis- - Low BP - Medications Plan: urine studies- IV bolous Monitor renal parameters- Per orders - CHRISTIAN CARBALLO January 08, 2017 15:26
[2017-01-08 16:00] VITALS: BP 100/72
[2017-01-08] MEDS ORDERED: NS 275ml ONE (17:00)
[2017-01-08] MEDS ORDERED: Tubing IV Secondary IV ONE (17:00)
[2017-01-08] MEDS: Meropenem 1gm/NS 110ml IVPB SCH ×2 (18:17)
[2017-01-08 19:24] VITALS: BP 110/73
[2017-01-08] MEDS: LORazepam Inj 2mg/ml 1ml IV PRN (21:51)
[2017-01-09] VITALS (7 sets, daily range): BP systolic 101–119; BP diastolic 66–80
[2017-01-09] MEDS: Colistin for inhalation INH SCH ×3 (00:15→21:13)
[2017-01-09] MEDS: LORazepam Inj 2mg/ml 1ml IV PRN (02:20)
[2017-01-09 05:11] LABS: BASOPHILS % (AUTO) 0.8 % (0.0-2.0); LYMPHOCYTES % (AUTO) 26.3 % (20.0-45.0); MEAN CORPUSCULAR HEMOGLOBIN 32.4 PG (27.0-31.0); MEAN CORPUSCULAR HGB CONC 33.8 G/DL (32.0-36.0); MEAN CORPUSCULAR VOLUME 96 FL (80-99); MEAN PLATELET VOLUME 8.7 FL (6.5-10.1); MONOCYTES % (AUTO) 10.1 % (1.0-10.0); NEUTROPHILS % (AUTO) 59.9 % (45.0-75.0); PLATELET COUNT 178 K/UL (150-450); RED BLOOD COUNT 2.68 M/UL (4.70-6.10); RED CELL DISTRIBUTION WIDTH 14.4 % (11.6-14.8); WHITE BLOOD COUNT 6.3 K/UL (4.8-10.8)
[2017-01-09 05:30] LABS: CRP QUANT 1.5 mg/dL (< 0.5); MAGNESIUM 1.5 mg/dL (1.7-2.5); PHOSPHORUS 2.9 mg/dL (2.5-4.8); URIC ACID 3.6 mg/dL (3.0-7.5)
[2017-01-09 05:31] LABS: ALANINE AMINOTRANSFERASE 15 U/L (3-41); ALBUMIN/GLOBULIN RATIO 0.9 (1.0-2.7); ANION GAP 13 (5-15); ASPARTATE AMINO TRANSFERASE 21 U/L (5-40); CALCIUM 9.8 mg/dL (8.6-10.2); CARBON DIOXIDE 27 mEQ/L (20-30); CHLORIDE 103 mEQ/L (98-107); CREATININE 0.9 mg/dL (0.7-1.2); GLOMERULAR FILTRATION RATE > 60 mL/min (>60); HEMOLYSIS 0; SODIUM 143 mEQ/L (135-145)
[2017-01-09 05:39] LABS: HEMOGLOBIN A1C 5.1 % (< 6.0)
[2017-01-09] MEDS: Meropenem 1gm/NS 110ml IVPB SCH ×4 (05:51→17:32)
--- NOTE | 2017-01-09 09:31 | General Progress Note ---
Assessment/Plan Status: stable - from renal srtand Status Narrative S Cr normalized Assessment/Plan Status: (1) Severe sepsis (2) Acute on chronic respiratory failure (3) UTI (urinary tract infection) (4) Feeding by G-tube (5) Anoxic encephalopathy syndrome (6) Anemia, chronic disease (7) Sz disorder (8) Anemai Acute renal failure likely multifactorial: - Sepsis- - Low BP - Medications Plan: urine studies- IV bolous Monitor renal parameters- Per orders Subjective ROS Limited/Unobtainable: Yes Allergies: Coded Allergies: CODEINE (Verified Allergy, Unknown, 11/15/16) Objective Last 24 Hour Vital Signs Date Time Temp Pulse Resp B/P Pulse Ox O2 Delivery O2 Flow Rate FiO2 01/09/17 08:53 85 13 40 01/09/17 07:30 97.5 71 18 107/74 100 Mechanical Ventilator 01/09/17 06:41 69 13 40 01/09/17 05:08 81 18 40 01/09/17 04:00 98.2 79 19 101/69 100 Mechanical Ventilator 01/09/17 04:00 40 01/09/17 03:49 90 01/09/17 03:09 94 18 40 01/09/17 01:30 90 20 40 01/09/17 00:00 98.0 86 18 118/78 98 Mechanical Ventilator 01/09/17 00:00 84 01/09/17 00:00 40 01/08/17 23:30 89 18 40 01/08/17 21:30 71 22 99 Mechanical Ventilator 01/08/17 21:30 72 22 100 Mechanical Ventilator 01/08/17 21:30 72 23 40 01/08/17 20:00 40 01/08/17 20:00 78 01/08/17 19:30 94 20 40 01/08/17 19:24 98.1 74 19 110/73 100 Mechanical Ventilator 01/08/17 18:04 98.1 01/08/17 16:52 76 19 40 01/08/17 16:00 98.1 73 12 100/72 100 Mechanical Ventilator 40 01/08/17 16:00 74 01/08/17 16:00 40 01/08/17 14:58 72 12 40 01/08/17 13:25 75 19 40 01/08/17 12:00 75 01/08/17 12:00 40 01/08/17 12:00 97.7 73 15 103/71 100 Mechanical Ventilator 40 01/08/17 11:10 85 24 40 01/08/17 09:55 74 12 100 Mechanical Ventilator 01/08/17 09:36 70 20 99 Mechanical Ventilator Intake and Output 01/08/17 01/09/17 19:00 07:00 Intake Total 1310 ml 980 ml Output Total 475 ml 400 ml Balance 835 ml 580 ml Intake Free Water 50 ml 100 ml IV Total 500 ml 220 ml Tube Feeding 660 ml 660 ml Other 100 ml Output Urine Total 475 ml 400 ml # Voids 4 # Bowel Movements 3 2 Laboratory Tests 01/08/17 16:36: Urine Random Sodium 150 01/09/17 04:00: White Blood Count 6.3, Red Blood Count 2.68L, Hemoglobin 8.7L, Hematocrit 25.7L , Mean Corpuscular Volume 96, Mean Corpuscular Hemoglobin 32.4H, Mean Corpuscular Hemoglobin Concent 33.8, Red Cell Distribution Width 14.4, Platelet Count 178#, Mean Platelet Volume 8.7, Neutrophils (%) (Auto) 59.9, Lymphocytes ( %) (Auto) 26.3, Monocytes (%) (Auto) 10.1H, Eosinophils (%) (Auto) 3.0, Basophils (%) (Auto) 0.8, Urine Eosinophils None seen, Sodium Level 143, Potassium Level 4.0, Chloride Level 103, Carbon Dioxide Level 27, Anion Gap 13, Blood Urea Nitrogen 12, Creatinine 0.9, Estimat Glomerular Filtration Rate > 60 , Glucose Level 110H, Hemoglobin A1c 5.1, Uric Acid 3.6, Calcium Level 9.8, Phosphorus Level 2.9, Magnesium Level 1.5L, Total Bilirubin 0.4, Gamma Glutamyl Transpeptidase 492H, Aspartate Amino Transf (AST/SGOT) 21, Alanine Aminotransferase (ALT/SGPT) 15, Alkaline Phosphatase 166H, Total Creatine Kinase 75, C-Reactive Protein, Quantitative 1.5H, Pro-B-Type Natriuretic Peptide 146H, Total Protein 7.0, Albumin 3.4L, Globulin 3.6, Albumin/Globulin Ratio 0.9L, Cortisol [Pending] Height (Feet): 5 Height (Inches): 4.00 Weight (Pounds): 180 General Appearance: mild distress Cardiovascular: normal rate Respiratory/Chest: decreased breath sounds Abdomen: soft Objective other PE not changed CHRISTIAN CARBALLO January 09, 2017 09:31
[2017-01-09] MEDS: levETIRAcetam 500mg/5ml Liquid GT SCH ×2 (09:38→20:41)
[2017-01-09] MEDS: Lactulose 20gm/30ml UDC GT SCH (09:38)
[2017-01-09] MEDS: Heparin 5000 units/ml inj SUBQ SCH ×2 (09:45→21:00)
[2017-01-09] MEDS: LaMICtal 150mg tab GT SCH (09:47)
[2017-01-09] MEDS: carBAMazepine 200mg tab GT SCH ×2 (09:48→20:41)
[2017-01-09] MEDS: Cyclobenzaprine 10mg Tab GT SCH ×3 (09:48→17:32)
[2017-01-09] MEDS: Dyna-Hex 2% Top Sol 8oz TOPIC SCH (10:04)
[2017-01-09 10:37] LABS: INR 1.1 (0.9-1.1); PROTHROMBIN TIME 11.5 SEC (9.30-11.50)
[2017-01-09] MEDS ORDERED: MERREM1 GM IV (10:40)
[2017-01-09] MEDS ORDERED: LEVOFLOXACIN500 MG ORAL (10:40)
[2017-01-09] MEDS ORDERED: COLISTIN150 MG HHN (10:40)
--- NOTE | 2017-01-09 19:27 | Infectious Diseases Prog Note ---
Assessment/Plan Assessment/Plan A: he patient is a 61-year-old male with UTI P Mirabilis ESBL probable Pna SCx : PSA, St Maltophilia , StrpGrG Chest x-ray : creasing right basilar atelectasis. 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 2/2 Amikacin ) , SP 01/04 PICC Worsening of mental status, SP History of encephalopathy. Seizure disorder. Ventilator-dependent respiratory failure. Status post PEG. Status post trach. Hypertension. COPD. History of alcoholic liver cirrhosis. History of cocaine abuse in the past PLAN: Merrem d# , Levaquin d# , add Colistin INH d# 2 01/08 SPAmikacin d# 3 DC Zosyn d# 3 ( 01/04 SP vancomycin d# 2 ) Monitor CBC. Monitor BMP Monitor chest x-ray Subjective Constitutional: Denies: anorexia, chills, drenching sweats, fatigue, fever, no symptoms, other Allergies: Coded Allergies: CODEINE (Verified Allergy, Unknown, 11/15/16) Subjective afebrile Objective Vital Signs Last 24 Hour Vital Signs Date Time Temp Pulse Resp B/P Pulse Ox O2 Delivery O2 Flow Rate FiO2 01/09/17 19:12 73 12 40 01/09/17 18:31 98.1 01/09/17 16:47 67 12 40 01/09/17 16:05 98.1 70 19 116/66 100 Mechanical Ventilator 01/09/17 16:00 72 01/09/17 15:55 40 01/09/17 15:22 70 17 40 01/09/17 12:48 68 17 40 01/09/17 12:00 40 01/09/17 12:00 75 01/09/17 12:00 97.7 72 18 105/80 100 Mechanical Ventilator 01/09/17 11:17 65 12 40 01/09/17 10:02 60 12 100 Mechanical Ventilator 01/09/17 09:50 61 12 99 Mechanical Ventilator 01/09/17 08:53 85 13 40 01/09/17 08:00 40 01/09/17 08:00 64 01/09/17 07:30 97.5 71 18 107/74 100 Mechanical Ventilator 01/09/17 06:41 69 13 40 01/09/17 05:08 81 18 40 01/09/17 04:00 98.2 79 19 101/69 100 Mechanical Ventilator 01/09/17 04:00 40 01/09/17 03:49 90 01/09/17 03:09 94 18 40 01/09/17 01:30 90 20 40 01/09/17 00:00 98.0 86 18 118/78 98 Mechanical Ventilator 01/09/17 00:00 84 01/09/17 00:00 40 01/08/17 23:30 89 18 40 01/08/17 21:30 71 22 99 Mechanical Ventilator 01/08/17 21:30 72 22 100 Mechanical Ventilator 01/08/17 21:30 72 23 40 01/08/17 20:00 40 01/08/17 20:00 78 01/08/17 19:30 94 20 40 Height (Feet): 5 Height (Inches): 4.00 Weight (Pounds): 180 HEENT: atraumatic Respiratory/Chest: normal breath sounds Cardiovascular: regular rhythm Abdomen: non distended Laboratory Tests Test 01/09/17 04:00 01/09/17 10:00 White Blood Count 6.3 K/UL (4.8-10.8) Red Blood Count 2.68 M/UL (4.70-6.10) L Hemoglobin 8.7 G/DL (14.2-18.0) L Hematocrit 25.7 % (42.0-52.0) L Mean Corpuscular Volume 96 FL (80-99) Mean Corpuscular Hemoglobin 32.4 PG (27.0-31.0) H Mean Corpuscular Hemoglobin Concent 33.8 G/DL (32.0-36.0) Red Cell Distribution Width 14.4 % (11.6-14.8) Platelet Count 178 K/UL (150-450) # Mean Platelet Volume 8.7 FL (6.5-10.1) Neutrophils (%) (Auto) 59.9 % (45.0-75.0) Lymphocytes (%) (Auto) 26.3 % (20.0-45.0) Monocytes (%) (Auto) 10.1 % (1.0-10.0) H Eosinophils (%) (Auto) 3.0 % (0.0-3.0) Basophils (%) (Auto) 0.8 % (0.0-2.0) Urine Eosinophils None seen Sodium Level 143 mEQ/L (135-145) Potassium Level 4.0 mEQ/L (3.4-4.9) Chloride Level 103 mEQ/L (98-107) Carbon Dioxide Level 27 mEQ/L (20-30) Anion Gap 13 (5-15) Blood Urea Nitrogen 12 mg/dL (7-23) Creatinine 0.9 mg/dL (0.7-1.2) Estimat Glomerular Filtration Rate > 60 mL/min (>60) Glucose Level 110 mg/dL (74-106) H Hemoglobin A1c 5.1 % (< 6.0) Uric Acid 3.6 mg/dL (3.0-7.5) Calcium Level 9.8 mg/dL (8.6-10.2) Phosphorus Level 2.9 mg/dL (2.5-4.8) Magnesium Level 1.5 mg/dL (1.7-2.5) L Total Bilirubin 0.4 mg/dL (0.0-1.2) Gamma Glutamyl Transpeptidase 492 U/L (8-61) H Aspartate Amino Transf (AST/SGOT) 21 U/L (5-40) Alanine Aminotransferase (ALT/SGPT) 15 U/L (3-41) Alkaline Phosphatase 166 U/L (40-129) H Total Creatine Kinase 75 U/L (38-174) C-Reactive Protein, Quantitative 1.5 mg/dL (< 0.5) H Pro-B-Type Natriuretic Peptide 146 pg/mL (0-125) H Total Protein 7.0 g/dL (6.6-8.7) Albumin 3.4 g/dL (3.5-5.2) L Globulin 3.6 g/dL Albumin/Globulin Ratio 0.9 (1.0-2.7) L Cortisol Pending Prothrombin Time 11.5 SEC (9.30-11.50) Prothromb Time International Ratio 1.1 (0.9-1.1) Current Medications Medications (Trade) Dose Ordered Sig/Romelia Route PRN Reason Start Time Stop Time Status Last Admin Dose Admin Acetaminophen (Tylenol) 650 mg Q4H PRN GT FEVER>100.5 01/02/17 08:00 02/01/17 07:59 Carbamazepine (TEGretol) 200 mg Q12HR GT 01/02/17 21:00 02/01/17 20:59 01/09/17 09:48 Chlorhexidine Gluconate (Natalie-Hex 2%) 1 applic DAILY TOPIC 01/05/17 09:00 02/04/17 08:59 01/09/17 10:04 Colistimethate Sodium (Colistin *inhalation use only*) 150 mg Q12HR@10,22 INH 01/08/17 22:00 01/15/17 21:59 01/09/17 10:02 Cyclobenzaprine HCl (Flexeril) 5 mg THREE TIMES A DAY GT 01/02/17 09:00 02/01/17 08:59 01/09/17 17:32 Dextrose (Dextrose 50%) STAT PRN IV Hypoglycemia 01/02/17 08:00 02/01/17 07:59 Heparin Sodium (Porcine) (Heparin 5000 units/ml) 5,000 units EVERY 12 HOURS SUBQ 01/02/17 09:00 02/01/17 08:59 01/09/17 09:45 Lactulose (Cephulac) 20 gm DAILY GT 01/02/17 09:00 02/01/17 08:59 01/09/17 09:38 Lamotrigine (LaMICtal) 150 mg DAILY GT 01/02/17 09:00 02/01/17 08:59 01/09/17 09:47 Lansoprazole (Prevacid) 30 mg DAILY GT 01/09/17 09:00 02/08/17 08:59 01/09/17 09:39 Levetiracetam (Keppra) 1,500 mg Q12HR GT 01/04/17 09:00 02/01/17 08:59 01/09/17 09:38 Levofloxacin 750 mg 750 mg Q48H GT 01/09/17 18:00 01/16/17 17:59 01/09/17 17:32 Meropenem/Sodium Chloride (Merrem/Sodium Chloride) 110 ml @ 220 mls/hr Q12HR@0600,1800 IVPB 01/08/17 18:00 01/13/17 17:59 01/09/17 17:32 Ondansetron HCl (Zofran) 4 mg Q6H PRN IVP Nausea & Vomiting 01/02/17 08:00 02/01/17 07:59 Polyethylene Glycol (Miralax) 17 gm DAILYPRN PRN GT Constipation 01/02/17 08:00 02/01/17 07:59 JON TINOCO M.D. January 09, 2017 19:27
[2017-01-10 04:00] VITALS: BP 103/68
[2017-01-10 04:53] LABS: ANION GAP 14 (5-15); CALCIUM 9.7 mg/dL (8.6-10.2); CARBON DIOXIDE 27 mEQ/L (20-30); CHLORIDE 99 mEQ/L (98-107); CREATININE 0.8 mg/dL (0.7-1.2); GLOMERULAR FILTRATION RATE > 60 mL/min (>60); HEMOLYSIS 0; SODIUM 140 mEQ/L (135-145)
[2017-01-10] MEDS: Meropenem 1gm/NS 110ml IVPB SCH ×2 (06:00)
[2017-01-10] MEDS: Colistin for inhalation INH SCH (06:51)
[2017-01-10 08:00] VITALS: BP 105/71
[2017-01-10] MEDS: Lactulose 20gm/30ml UDC GT SCH (08:43)
[2017-01-10] MEDS: LaMICtal 150mg tab GT SCH (08:44)
[2017-01-10] MEDS: carBAMazepine 200mg tab GT SCH (08:44)
[2017-01-10] MEDS: Cyclobenzaprine 10mg Tab GT SCH ×3 (08:45→17:43)
[2017-01-10] MEDS: levETIRAcetam 500mg/5ml Liquid GT SCH (08:46)
[2017-01-10] MEDS: Heparin 5000 units/ml inj SUBQ SCH (08:47)
[2017-01-10] MEDS: Dyna-Hex 2% Top Sol 8oz TOPIC SCH (08:48)
--- NOTE | 2017-01-10 09:48 | Infectious Diseases Prog Note ---
Assessment/Plan Assessment/Plan A: he patient is a 61-year-old male with UTI: P Mirabilis ESBL probable Pna SCx : PSA, St Maltophilia , StrpGrG Chest x-ray : creasing right basilar atelectasis. Otherwise, little place change roof bolter 2 days, including persistent retrocardiac consolidation 01/04 Fever, SP Sepsis, Sp leukopenia Elev Alk Ph US of Abd : Cholelithiasis RICK ( ? 2/2 Amikacin ) , SP 01/04 PICC Worsening of mental status, SP History of encephalopathy. Seizure disorder. Ventilator-dependent respiratory failure. Status post PEG. Status post trach. Hypertension. COPD. History of alcoholic liver cirrhosis. History of cocaine abuse in the past PLAN: Merrem d# , Levaquin d# , add Colistin INH d# / 01/08 SPAmikacin d# 3 DC Zosyn d# 3 ( 01/04 SP vancomycin d# 2 ) Monitor CBC. Monitor BMP Monitor chest x-ray Subjective Constitutional: Denies: anorexia, chills, drenching sweats, fatigue, fever, no symptoms, other Allergies: Coded Allergies: CODEINE (Verified Allergy, Unknown, 11/15/16) Subjective afebrile Objective Vital Signs Last 24 Hour Vital Signs Date Time Temp Pulse Resp B/P Pulse Ox O2 Delivery O2 Flow Rate FiO2 01/10/17 08:36 80 20 40 01/10/17 08:00 67 01/10/17 08:00 40 01/10/17 08:00 97.9 70 13 105/71 100 Mechanical Ventilator 40 01/10/17 06:54 75 20 100 Mechanical Ventilator 01/10/17 06:54 71 20 40 01/10/17 06:40 77 20 99 Mechanical Ventilator 01/10/17 04:47 71 12 40 01/10/17 04:00 98.4 65 12 103/68 Trach Collar 01/10/17 04:00 71 01/10/17 04:00 40 01/10/17 02:45 66 13 40 01/10/17 01:04 76 15 40 01/10/17 00:00 40 01/10/17 00:00 72 01/09/17 23:47 98.6 77 12 106/75 100 Trach Collar 01/09/17 23:20 78 12 40 01/09/17 21:17 95 24 100 Mechanical Ventilator 01/09/17 21:16 88 24 100 Mechanical Ventilator 01/09/17 21:05 85 18 40 01/09/17 20:00 78 01/09/17 20:00 40 01/09/17 19:33 98.0 77 13 119/77 100 Trach Collar 01/09/17 19:12 73 12 40 01/09/17 18:31 98.1 01/09/17 16:47 67 12 40 01/09/17 16:05 98.1 70 19 116/66 100 Mechanical Ventilator 01/09/17 16:00 72 01/09/17 15:55 40 01/09/17 15:22 70 17 40 01/09/17 12:48 68 17 40 01/09/17 12:00 40 01/09/17 12:00 75 01/09/17 12:00 97.7 72 18 105/80 100 Mechanical Ventilator 01/09/17 11:17 65 12 40 01/09/17 10:02 60 12 100 Mechanical Ventilator 01/09/17 09:50 61 12 99 Mechanical Ventilator Height (Feet): 5 Height (Inches): 4.00 Weight (Pounds): 180 HEENT: anicteric Respiratory/Chest: no accessory muscle use Cardiovascular: regular rhythm Abdomen: non distended Laboratory Tests Test 01/09/17 10:00 01/10/17 04:00 Prothrombin Time 11.5 SEC (9.30-11.50) Prothromb Time International Ratio 1.1 (0.9-1.1) Urine Eosinophils None seen Sodium Level 140 mEQ/L (135-145) Potassium Level 4.0 mEQ/L (3.4-4.9) Chloride Level 99 mEQ/L (98-107) Carbon Dioxide Level 27 mEQ/L (20-30) Anion Gap 14 (5-15) Blood Urea Nitrogen 13 mg/dL (7-23) Creatinine 0.8 mg/dL (0.7-1.2) Estimat Glomerular Filtration Rate > 60 mL/min (>60) Glucose Level 101 mg/dL (74-106) Calcium Level 9.7 mg/dL (8.6-10.2) Current Medications Medications (Trade) Dose Ordered Sig/Romelia Route PRN Reason Start Time Stop Time Status Last Admin Dose Admin Acetaminophen (Tylenol) 650 mg Q4H PRN GT FEVER>100.5 01/02/17 08:00 02/01/17 07:59 Carbamazepine (TEGretol) 200 mg Q12HR GT 01/02/17 21:00 02/01/17 20:59 01/10/17 08:44 Chlorhexidine Gluconate (Natalie-Hex 2%) 1 applic DAILY TOPIC 01/05/17 09:00 02/04/17 08:59 01/10/17 08:48 Colistimethate Sodium (Colistin *inhalation use only*) 150 mg Q12HR@10,22 INH 01/08/17 22:00 01/15/17 21:59 01/10/17 06:51 Cyclobenzaprine HCl (Flexeril) 5 mg THREE TIMES A DAY GT 01/02/17 09:00 02/01/17 08:59 01/10/17 08:45 Dextrose (Dextrose 50%) STAT PRN IV Hypoglycemia 01/02/17 08:00 02/01/17 07:59 Heparin Sodium (Porcine) (Heparin 5000 units/ml) 5,000 units EVERY 12 HOURS SUBQ 01/02/17 09:00 02/01/17 08:59 01/10/17 08:47 Lactulose (Cephulac) 20 gm DAILY GT 01/02/17 09:00 02/01/17 08:59 01/10/17 08:43 Lamotrigine (LaMICtal) 150 mg DAILY GT 01/02/17 09:00 02/01/17 08:59 01/10/17 08:44 Lansoprazole (Prevacid) 30 mg DAILY GT 01/09/17 09:00 02/08/17 08:59 01/10/17 08:44 Levetiracetam (Keppra) 1,500 mg Q12HR GT 01/04/17 09:00 02/01/17 08:59 01/10/17 08:46 Levofloxacin 750 mg 750 mg Q48H GT 01/09/17 18:00 01/16/17 17:59 01/09/17 17:32 Meropenem/Sodium Chloride (Merrem/Sodium Chloride) 110 ml @ 220 mls/hr Q12HR@0600,1800 IVPB 01/08/17 18:00 01/13/17 17:59 01/10/17 06:00 Ondansetron HCl (Zofran) 4 mg Q6H PRN IVP Nausea & Vomiting 01/02/17 08:00 02/01/17 07:59 Polyethylene Glycol (Miralax) 17 gm DAILYPRN PRN GT Constipation 01/02/17 08:00 02/01/17 07:59 JON TINOCO M.D. Jan 10, 2017 09:48
--- NOTE | 2017-01-10 11:07 | Pulmonology Progress Note ---
Assessment/Plan Problems: (1) Severe sepsis (2) Acute on chronic respiratory failure (3) UTI (urinary tract infection) (4) Feeding by G-tube (5) Anoxic encephalopathy syndrome (6) Anemia, chronic disease Respiratory: adjust tidal volume, monitor respiratory rate, adjust FIO2 Cardiac: continue to monitor HR/BP Renal: F/U I&O, keep IV fluid Infectious Disease: check cultures Gastrointestinal: continue feedings/current rate Endocrine: monitor blood sugar, check TSH, continue sliding scale insulin Hematologic: monitor H/H, transfuse if hgb<8.5 Neurologic: PRN Morphine, keep patient comfortable Affect: PRN ativan Prophylaxis: Protonix Notes Reviewed: cardio, renal Discussed with: nurses, consultants, case hardener Subjective ROS Limited/Unobtainable: No Constitutional: Reports: no symptoms HEENT: Repors: no symptoms Respiratory: Reports: no symptoms Allergies: Coded Allergies: CODEINE (Verified Allergy, Unknown, 11/15/16) Objective Last 24 Hour Vital Signs Date Time Temp Pulse Resp B/P Pulse Ox O2 Delivery O2 Flow Rate FiO2 01/10/17 10:44 78 22 40 01/10/17 08:36 80 20 40 01/10/17 08:00 67 01/10/17 08:00 40 01/10/17 08:00 97.9 70 13 105/71 100 Mechanical Ventilator 40 01/10/17 06:54 75 20 100 Mechanical Ventilator 01/10/17 06:54 71 20 40 01/10/17 06:40 77 20 99 Mechanical Ventilator 01/10/17 04:47 71 12 40 01/10/17 04:00 98.4 65 12 103/68 Trach Collar 01/10/17 04:00 71 01/10/17 04:00 40 01/10/17 02:45 66 13 40 01/10/17 01:04 76 15 40 01/10/17 00:00 40 01/10/17 00:00 72 01/09/17 23:47 98.6 77 12 106/75 100 Trach Collar 01/09/17 23:20 78 12 40 01/09/17 21:17 95 24 100 Mechanical Ventilator 01/09/17 21:16 88 24 100 Mechanical Ventilator 01/09/17 21:05 85 18 40 01/09/17 20:00 78 01/09/17 20:00 40 01/09/17 19:33 98.0 77 13 119/77 100 Trach Collar 01/09/17 19:12 73 12 40 01/09/17 18:31 98.1 01/09/17 16:47 67 12 40 01/09/17 16:05 98.1 70 19 116/66 100 Mechanical Ventilator 01/09/17 16:00 72 01/09/17 15:55 40 01/09/17 15:22 70 17 40 01/09/17 12:48 68 17 40 01/09/17 12:00 40 01/09/17 12:00 75 01/09/17 12:00 97.7 72 18 105/80 100 Mechanical Ventilator 01/09/17 11:17 65 12 40 Intake and Output 01/09/17 01/10/17 19:00 07:00 Intake Total 970 ml 820 ml Output Total 500 ml 750 ml Balance 470 ml 70 ml IV Total 310 ml 110 ml Tube Feeding 660 ml 660 ml Other 50 ml Output Urine Total 500 ml 750 ml # Bowel Movements 2 Objective General Appearance: WD/WN, no acute distress HEENT: normocephalic, atraumatic Respiratory/Chest: chest wall non-tender, rhonchi, trach intact Cardiovascular: normal peripheral pulses, normal rate Abdomen: normal bowel sounds, soft, non tender Genitourinary: normal external genitalia Extremities: no cyanosis Skin: no lesions Neurologic/Psychiatric: no motor/sensory deficits, alert Lymphatic: no neck adenopathy Laboratory Tests 01/10/17 04:00: Urine Eosinophils None seen, Sodium Level 140, Potassium Level 4.0, Chloride Level 99, Carbon Dioxide Level 27, Anion Gap 14, Blood Urea Nitrogen 13, Creatinine 0.8, Estimat Glomerular Filtration Rate > 60, Glucose Level 101, Calcium Level 9.7 Current Medications Medications (Trade) Dose Ordered Sig/Romelia Route PRN Reason Start Time Stop Time Status Last Admin Dose Admin Acetaminophen (Tylenol) 650 mg Q4H PRN GT FEVER>100.5 01/02/17 08:00 02/01/17 07:59 Carbamazepine (TEGretol) 200 mg Q12HR GT 01/02/17 21:00 02/01/17 20:59 01/10/17 08:44 Chlorhexidine Gluconate (Natalie-Hex 2%) 1 applic DAILY TOPIC 01/05/17 09:00 02/04/17 08:59 01/10/17 08:48 Colistimethate Sodium (Colistin *inhalation use only*) 150 mg Q12HR@10,22 INH 01/08/17 22:00 01/15/17 21:59 01/10/17 06:51 Cyclobenzaprine HCl (Flexeril) 5 mg THREE TIMES A DAY GT 01/02/17 09:00 02/01/17 08:59 01/10/17 08:45 Dextrose (Dextrose 50%) STAT PRN IV Hypoglycemia 01/02/17 08:00 02/01/17 07:59 Heparin Sodium (Porcine) (Heparin 5000 units/ml) 5,000 units EVERY 12 HOURS SUBQ 01/02/17 09:00 02/01/17 08:59 01/10/17 08:47 Lactulose (Cephulac) 20 gm DAILY GT 01/02/17 09:00 02/01/17 08:59 01/10/17 08:43 Lamotrigine (LaMICtal) 150 mg DAILY GT 01/02/17 09:00 02/01/17 08:59 01/10/17 08:44 Lansoprazole (Prevacid) 30 mg DAILY GT 01/09/17 09:00 02/08/17 08:59 01/10/17 08:44 Levetiracetam (Keppra) 1,500 mg Q12HR GT 01/04/17 09:00 02/01/17 08:59 01/10/17 08:46 Levofloxacin 750 mg 750 mg Q48H GT 01/09/17 18:00 01/16/17 17:59 01/09/17 17:32 Meropenem/Sodium Chloride (Merrem/Sodium Chloride) 110 ml @ 220 mls/hr Q12HR@0600,1800 IVPB 01/08/17 18:00 01/13/17 17:59 01/10/17 06:00 Ondansetron HCl (Zofran) 4 mg Q6H PRN IVP Nausea & Vomiting 01/02/17 08:00 02/01/17 07:59 Polyethylene Glycol (Miralax) 17 gm DAILYPRN PRN GT Constipation 01/02/17 08:00 02/01/17 07:59 MYCHAL MITCHELL Jan 10, 2017 11:07
--- NOTE | 2017-01-10 11:09 | Pulmonology Progress Note ---
Assessment/Plan Problems: (1) Severe sepsis (2) Acute on chronic respiratory failure (3) UTI (urinary tract infection) (4) Feeding by G-tube (5) Anoxic encephalopathy syndrome (6) Anemia, chronic disease Respiratory: monitor respiratory rate Cardiac: continue to monitor HR/BP Renal: F/U I&O, keep IV fluid Infectious Disease: check cultures, continue antibiotics Gastrointestinal: continue feedings/current rate Endocrine: monitor blood sugar, check TSH, continue sliding scale insulin Hematologic: monitor H/H, transfuse if hgb<8.5 Neurologic: PRN Ativan, PRN Morphine, keep patient comfortable Prophylaxis: Protonix, Heparin Notes Reviewed: dairy helper, renal Discussed with: nurses, consultants, case manager specialist, other - pt was suppose to be discharge, but apparently the insurance refused to pay for antibiotics and skillded days. Subjective ROS Limited/Unobtainable: No Interval Events: late note for 01/09 Allergies: Coded Allergies: CODEINE (Verified Allergy, Unknown, 11/15/16) All Systems: reviewed and negative except above Objective Last 24 Hour Vital Signs Date Time Temp Pulse Resp B/P Pulse Ox O2 Delivery O2 Flow Rate FiO2 01/10/17 10:44 78 22 40 01/10/17 08:36 80 20 40 01/10/17 08:00 67 01/10/17 08:00 40 01/10/17 08:00 97.9 70 13 105/71 100 Mechanical Ventilator 40 01/10/17 06:54 75 20 100 Mechanical Ventilator 01/10/17 06:54 71 20 40 01/10/17 06:40 77 20 99 Mechanical Ventilator 01/10/17 04:47 71 12 40 01/10/17 04:00 98.4 65 12 103/68 Trach Collar 01/10/17 04:00 71 01/10/17 04:00 40 01/10/17 02:45 66 13 40 01/10/17 01:04 76 15 40 01/10/17 00:00 40 01/10/17 00:00 72 01/09/17 23:47 98.6 77 12 106/75 100 Trach Collar 01/09/17 23:20 78 12 40 01/09/17 21:17 95 24 100 Mechanical Ventilator 01/09/17 21:16 88 24 100 Mechanical Ventilator 01/09/17 21:05 85 18 40 01/09/17 20:00 78 01/09/17 20:00 40 01/09/17 19:33 98.0 77 13 119/77 100 Trach Collar 01/09/17 19:12 73 12 40 01/09/17 18:31 98.1 01/09/17 16:47 67 12 40 01/09/17 16:05 98.1 70 19 116/66 100 Mechanical Ventilator 01/09/17 16:00 72 01/09/17 15:55 40 01/09/17 15:22 70 17 40 01/09/17 12:48 68 17 40 01/09/17 12:00 40 01/09/17 12:00 75 01/09/17 12:00 97.7 72 18 105/80 100 Mechanical Ventilator 01/09/17 11:17 65 12 40 Intake and Output 01/09/17 01/10/17 19:00 07:00 Intake Total 970 ml 820 ml Output Total 500 ml 750 ml Balance 470 ml 70 ml IV Total 310 ml 110 ml Tube Feeding 660 ml 660 ml Other 50 ml Output Urine Total 500 ml 750 ml # Bowel Movements 2 Objective General Appearance: WD/WN, no acute distress HEENT: normocephalic, atraumatic Respiratory/Chest: chest wall non-tender, rhonchi, trach intact Cardiovascular: normal peripheral pulses, normal rate Abdomen: normal bowel sounds, soft, non tender Genitourinary: normal external genitalia Extremities: no cyanosis Skin: no lesions Neurologic/Psychiatric: no motor/sensory deficits, alert Lymphatic: no neck adenopathy Laboratory Tests 01/10/17 04:00: Urine Eosinophils None seen, Sodium Level 140, Potassium Level 4.0, Chloride Level 99, Carbon Dioxide Level 27, Anion Gap 14, Blood Urea Nitrogen 13, Creatinine 0.8, Estimat Glomerular Filtration Rate > 60, Glucose Level 101, Calcium Level 9.7 Current Medications Medications (Trade) Dose Ordered Sig/Romelia Route PRN Reason Start Time Stop Time Status Last Admin Dose Admin Acetaminophen (Tylenol) 650 mg Q4H PRN GT FEVER>100.5 01/02/17 08:00 02/01/17 07:59 Carbamazepine (TEGretol) 200 mg Q12HR GT 01/02/17 21:00 02/01/17 20:59 01/10/17 08:44 Chlorhexidine Gluconate (Natalie-Hex 2%) 1 applic DAILY TOPIC 01/05/17 09:00 02/04/17 08:59 01/10/17 08:48 Colistimethate Sodium (Colistin *inhalation use only*) 150 mg Q12HR@10,22 INH 01/08/17 22:00 01/15/17 21:59 01/10/17 06:51 Cyclobenzaprine HCl (Flexeril) 5 mg THREE TIMES A DAY GT 01/02/17 09:00 02/01/17 08:59 01/10/17 08:45 Dextrose (Dextrose 50%) STAT PRN IV Hypoglycemia 01/02/17 08:00 02/01/17 07:59 Heparin Sodium (Porcine) (Heparin 5000 units/ml) 5,000 units EVERY 12 HOURS SUBQ 01/02/17 09:00 02/01/17 08:59 01/10/17 08:47 Lactulose (Cephulac) 20 gm DAILY GT 01/02/17 09:00 02/01/17 08:59 01/10/17 08:43 Lamotrigine (LaMICtal) 150 mg DAILY GT 01/02/17 09:00 02/01/17 08:59 01/10/17 08:44 Lansoprazole (Prevacid) 30 mg DAILY GT 01/09/17 09:00 02/08/17 08:59 01/10/17 08:44 Levetiracetam (Keppra) 1,500 mg Q12HR GT 01/04/17 09:00 02/01/17 08:59 01/10/17 08:46 Levofloxacin 750 mg 750 mg Q48H GT 01/09/17 18:00 01/16/17 17:59 01/09/17 17:32 Meropenem/Sodium Chloride (Merrem/Sodium Chloride) 110 ml @ 220 mls/hr Q12HR@0600,1800 IVPB 01/08/17 18:00 01/13/17 17:59 01/10/17 06:00 Ondansetron HCl (Zofran) 4 mg Q6H PRN IVP Nausea & Vomiting 01/02/17 08:00 02/01/17 07:59 Polyethylene Glycol (Miralax) 17 gm DAILYPRN PRN GT Constipation 01/02/17 08:00 02/01/17 07:59 MYCHAL MITCHELL Jan 10, 2017 11:08
[2017-01-10 12:00] VITALS: BP 110/74
[2017-01-10] MEDS ORDERED: Meropenem 1gm/NS 110ml IVPB SCH ×2 (15:00)
--- NOTE | 2017-01-10 15:08 | General Progress Note ---
Assessment/Plan Status: stable Assessment/Plan Status: Cr normalized (1) Severe sepsis (2) Acute on chronic respiratory failure (3) UTI (urinary tract infection) (4) Feeding by G-tube (5) Anoxic encephalopathy syndrome (6) Anemia, chronic disease (7) Sz disorder (8) Anemai Acute renal failure likely multifactorial: - Sepsis- - Low BP - Medications Plan: urine studies- IV bolous Monitor renal parameters- Per orders Subjective ROS Limited/Unobtainable: Yes Allergies: Coded Allergies: CODEINE (Verified Allergy, Unknown, 11/15/16) Objective Last 24 Hour Vital Signs Date Time Temp Pulse Resp B/P Pulse Ox O2 Delivery O2 Flow Rate FiO2 01/10/17 14:35 76 17 40 01/10/17 12:19 79 16 40 01/10/17 12:00 40 01/10/17 12:00 98.7 77 13 110/74 100 Mechanical Ventilator 40 01/10/17 11:37 78 01/10/17 10:44 78 22 40 01/10/17 08:36 80 20 40 01/10/17 08:00 67 01/10/17 08:00 40 01/10/17 08:00 97.9 70 13 105/71 100 Mechanical Ventilator 40 01/10/17 06:54 75 20 100 Mechanical Ventilator 01/10/17 06:54 71 20 40 01/10/17 06:40 77 20 99 Mechanical Ventilator 01/10/17 04:47 71 12 40 01/10/17 04:00 98.4 65 12 103/68 Trach Collar 01/10/17 04:00 71 01/10/17 04:00 40 01/10/17 02:45 66 13 40 01/10/17 01:04 76 15 40 01/10/17 00:00 40 01/10/17 00:00 72 01/09/17 23:47 98.6 77 12 106/75 100 Trach Collar 01/09/17 23:20 78 12 40 01/09/17 21:17 95 24 100 Mechanical Ventilator 01/09/17 21:16 88 24 100 Mechanical Ventilator 01/09/17 21:05 85 18 40 01/09/17 20:00 78 01/09/17 20:00 40 01/09/17 19:33 98.0 77 13 119/77 100 Trach Collar 01/09/17 19:12 73 12 40 01/09/17 18:31 98.1 01/09/17 16:47 67 12 40 01/09/17 16:05 98.1 70 19 116/66 100 Mechanical Ventilator 01/09/17 16:00 72 01/09/17 15:55 40 01/09/17 15:22 70 17 40 Intake and Output 01/09/17 01/10/17 19:00 07:00 Intake Total 970 ml 820 ml Output Total 500 ml 750 ml Balance 470 ml 70 ml IV Total 310 ml 110 ml Tube Feeding 660 ml 660 ml Other 50 ml Output Urine Total 500 ml 750 ml # Bowel Movements 2 Laboratory Tests 01/10/17 04:00: Urine Eosinophils None seen, Sodium Level 140, Potassium Level 4.0, Chloride Level 99, Carbon Dioxide Level 27, Anion Gap 14, Blood Urea Nitrogen 13, Creatinine 0.8, Estimat Glomerular Filtration Rate > 60, Glucose Level 101, Calcium Level 9.7 Height (Feet): 5 Height (Inches): 4.00 Weight (Pounds): 180 General Appearance: no apparent distress Cardiovascular: tachycardia Respiratory/Chest: decreased breath sounds Abdomen: soft Objective other PE not changed CHRISTIAN CARBALLO Jan 10, 2017 15:08
[2017-01-10 16:00] VITALS: BP 107/73
[2017-01-10] MEDS ORDERED: Tubing IV Secondary IV ONE (18:49)
[2017-01-10] MEDS ORDERED: NS 275ml ONE (18:49)
--- NOTE | 2017-01-11 12:01 | Discharge Summary ---
Discharge Summary Hospital Course Date of Admission January 02, 2017 at 04:17 Date of Discharge Jan 10, 2017 at 18:50 Admitting Diagnosis SEPSIS HPI Francesco Rowan is a 61 year old male who was admitted on January 02, 2017 at 04:17 for Sepsis Hospital Course [id number] Discharge Discharge Disposition Patient was discharged to SNF/Subacute Facility(03) Discharge Diagnoses: Seda Salazar NP Jan 11, 2017 12:01
--- NOTE | 2017-01-12 01:01 | Discharge Summary 2 SIG ---
DATE OF ADMISSION: 01/02/2017 DATE OF DISCHARGE: 01/10/2017 CONSULTANTS: 1. Jarod Welsh M.D. 2. Jonnathan Dwyer M.D. BRIEF HOSPITAL COURSE: The patient is a 61-year-old male with history of chronic respiratory failure, on vent and anoxic brain injury, presented to ED for fever and altered mental status. The patient had decreased oxygenation at intermediate. On evaluation at ED, the patient was hypotensive, however blood pressure responded with IV fluids. Antibiotics were started and was admitted to [facility] for further evaluation. He was seen by Dr. Dwyer and was given vancomycin and Zosyn. Chest x-ray showed left basilar infiltrate. Renal function arising. Dr. Welsh was consulted. Acute renal failure was secondary to sepsis, low blood pressure, and possible medication, questionable amikacin. He was given IV bolus. Abdominal ultrasound showed cholelithiasis. Kidneys were unremarkable. Sputum culture showed growth of Pseudomonas and Stenotrophomonas maltophilia and group G Streptococcus. Urine culture showed growth of Proteus mirabilis ESBL. Vancomycin and Zosyn were discontinued and was given Merrem, Levaquin, and inhaled colistin. Amikacin was also eventually discontinued. Renal function improved. The patient was eventually discharged back to intermediate. FINAL DIAGNOSES: 1. Severe sepsis. 2. Acute on chronic respiratory failure. 3. Urinary tract infection with Proteus mirabilis extended-spectrum beta-lactamases. 4. Probable pneumonia with Pseudomonas and Streptococcus group G and Stenotrophomonas maltophilia. 5. Acute kidney injury. 6. Worsening mental status with acute on chronic metabolic encephalopathy. 7. Seizure disorder. 8. Feeding via gastrostomy tube. 9. Hypertension. 10. Chronic obstructive pulmonary disease 11. Anemia of chronic disease. 12. Anoxic encephalopathy syndrome. 13. Elevated alkaline phosphatase. 14. History of alcoholic liver cirrhosis. 15. History of cocaine abuse in the past. Marci Crowe M.D. I have been assigned to dictate discharge summary on this account and I was not involved in the patient's management. Seda Salazar N.P. DR: Mona JOB#: [id number] CC:
== END 2017-01-10 18:50 | DRG 720 ==
LOC: EDBD 02:15 → EMR 03:26 → EDBEDREQ 04:07 → 2W 04:17 → EDBEDREQ 05:16 → 2W 01-05 03:05
PROC: B548ZZA Ultrasonography of Superior Vena Cava, Guidance (ICD-10-PCS; 2017-01-02)
PROC: 5A1955Z Respiratory Ventilation, Greater than 96 Consecutive Hours (ICD-10-PCS; 2017-01-02)
PROC: 02HV33Z Insertion of Infusion Device into Superior Vena Cava, Percutaneous Approach (ICD-10-PCS; principal; 2017-01-04)
DX: A41.9 Sepsis, unspecified organism (principal); J96.20 Acute and chronic respiratory failure, unspecified whether with hypoxia or hypercapnia; G93.1 Anoxic brain damage, not elsewhere classified; G93.41 Metabolic encephalopathy; Z99.11 Dependence on respirator [ventilator] status; J44.0 Chronic obstructive pulmonary disease with (acute) lower respiratory infection; J95.851 Ventilator associated pneumonia; Z93.0 Tracheostomy status; N39.0 Urinary tract infection, site not specified; R65.20 Severe sepsis without septic shock; Z93.1 Gastrostomy status; G40.909 Epilepsy, unspecified, not intractable, without status epilepticus; D63.8 Anemia in other chronic diseases classified elsewhere; K70.30 Alcoholic cirrhosis of liver without ascites; B96.5 Pseudomonas (aeruginosa) (mallei) (pseudomallei) as the cause of diseases classified elsewhere; B95.4 Other streptococcus as the cause of diseases classified elsewhere; I10 Essential (primary) hypertension; J98.11 Atelectasis
CPT/HCPCS: 36415; 36569; 71010; 76700; 76937; 80048; 80053; 80069; 80299; 81003; 82270; 82378; 82533; 82550; 82553; 82607; 82746; 82962; 82977; 83036; 83540; 83550; 83605; 83615; 83735; 83880; 84100; 84300; 84484; 84550; 85007; 85025; 85044; 85060; 85610; 85651; 85730; 86140; 86850; 86900; 86901; 86920; 87040; 87070; 87081; 87086; 87181; 87205; 89050; 93005; 93970; 94002; 94003; 94640

== ENCOUNTER 2017-07-14 13:10 | Inpatient (IN) | payer MEDICAID, OTHER ==
[2017-07-14] VITALS (20 sets, daily range): BP systolic 67–165; BP diastolic 38–107
[~2017-07-14] VITALS: Ht 167.6 cm; Wt 98.0 kg
[~2017-07-14 13:10] MED LIST changes: +ALBUTEROL2.5 MG/3 M INH; +ATIVAN1 MG ORAL; +COLISTIN150 MG HHN; +KEPPRA1000 MG GT; -KEPPRA1000 MG ORAL; +LEVOFLOXACIN500 MG ORAL; +LOSARTAN POTASS50 MG GT; +MERREM1 GM IV
--- NOTE | 2017-07-14 13:20 | Emergency Room Report ---
History of Present Illness General Chief Complaint: Altered Mental Status Source: Patient, Medical Record Present Illness HPI 62-year-old male [facility] with concern for altered mental status, hypoxia, and CRE on isolation. Neither EMS and her prison specified what was acutely altered in his mental status Patient has history of anoxic brain injury, had previous trach Patient has many medical problems to numerous to list here Please see ER in triage note and prison paperwork History of present illness otherwise limited due to patient's history of anoxic brain injury Allergies: Coded Allergies: CODEINE (Verified Allergy, Unknown, 11/15/16) Patient History Past Medical History: none - see history of present illnesssee history of present illness Past Surgical History: none, unable to obtain Pertinent Family History: unable to obtain Social History: Denies: smoking, alcohol use, drug use Immunizations: UTD Reviewed Nursing Documentation: PMH: Agreed, PSxH: Agreed Nursing Documentation-PMH Hx Hypertension: Yes - Unspecified embolis of vein - USP anticoagulant use Hx Diabetes: No Hx Cancer: Yes Hx Gastrointestinal Problems: Yes - G-tube; Liver cirrhosis History Of Psychiatric Problem: Yes - Anxiety disorder; ETOH dependence; Cocaine abuse Hx Neurological Problems: Yes - Encephalopathy Hx Seizures: Yes Review of Systems All Other Systems: limited - anoxic brain injury Physical Exam Vital Signs Date Time Temp Pulse Resp B/P (MAP) Pulse Ox O2 Delivery O2 Flow Rate FiO2 07/14/17 12:56 115 28 101/72 100 Non-Rebreather Sp02 EP Interpretation: reviewed, normal General Appearance: normal inspection, well appearing, no apparent distress, other - Sonorous breathing Head: normocephalic, atraumatic Eyes: bilateral eye PERRL, bilateral eye EOMI ENT: normal ENT inspection, hearing grossly normal, normal voice Neck: normal inspection, full range of motion, supple, no bony tend Respiratory: normal inspection, lungs clear, normal breath sounds, no respiratory distress, no retraction, no wheezing Cardiovascular #1: regular rate, rhythm, no edema Gastrointestinal: normal inspection, normal bowel sounds, non tender, soft, no guarding, no hernia, other - Gtube in place, no sign of infection Genitourinary: no CVA tenderness Musculoskeletal: normal inspection, back normal, normal range of motion, Amarilis' s Sign negative Neurologic: normal inspection, alert, responsive, speech normal Psychiatric: normal inspection, judgement/insight normal, mood/affect normal Skin: normal inspection, normal color, no rash Procedures Critical Care Time Critical Care Time CC time 35 minutes Critical care time endorsed for this patient for AMS d/t sepsis Critical care time includes review of laboratory tests, imaging, review of EMR, review of paperwork from SNF (if available), discussion with patient and family (if available), review of code status/POLS (if available). Critical care time also likely includes assessment of fluid status, stabilization of vital signs, selection and dosing of appropriate antibiotics, selection and dosing of pressors, discussion with PMD/attending hospitalist/ spool cleaner hand. Critical care time does not include any procedures which are documented elsewhere in this EMR. Medical Decision Making Diagnostic Impression: Primary Impression: Altered mental status Qualified Codes: R41.82 - Altered mental status, unspecified Additional Impressions: Sepsis Qualified Codes: A41.9 - Sepsis, unspecified organism Anoxic encephalopathy syndrome ER Course Questionable altered mental status and patient has history of anoxic brain injury Difficult to quantify or qualify acute change in mental status Per PMD patient's mental status is awake but nonverbal at baseline No acute change from the baseline here Patient with sonorous breathing and tachycardia, possible seizure Tegretol level pending ABG does not show hypoxia or hypercapnia Chest x-ray essentially unchanged from previous - no pleural effusion, no pneumonia no pulmonary congestion. UA negative for infection SNF states CRE infection likely soruce patient meets sepsis criteria with tachycardia, hypotension, leukopenia and elevated rectal temperature\fever Was given empiric antibiotics, blood and urine cultures are pending Given 30cc/kg fluid bolus per sepsis protocol tylenol NV Utox negative for drugs Endorse to Dr. Shelton as PMD at 2 PM for telemetry admission EKG Diagnostic Results Rate: tachycardiac Rhythm: NSR ST Segments: no acute changes ASA given to the pt in ED: No Rhythm Strip Diag. Results EP Interpretation: yes Rate: 115 Rhythm: NSR, no PVC's, no ectopy Chest X-Ray Diagnostic Results Chest X-Ray Diagnostic Results : Chest X-Ray Ordered: Yes # of Views/Limited/Complete: 1 View Indication: Other - AMS EP Interpretation: Yes Interpretation: no consolidation, no effusion, no pneumothorax, other - cardiomegaly Electronically Signed by: Dr Bijan Godinez MD Last Vital Signs Date Time Temp Pulse Resp B/P (MAP) Pulse Ox O2 Delivery O2 Flow Rate FiO2 07/14/17 12:56 115 28 101/72 100 Non-Rebreather Status: improved Disposition: ADMITTED INPATIENT Condition: Critical BIJAN GODINEZ M.D. Jul 14, 2017 13:20
[2017-07-14 13:23] LABS: ABG PCO2 42.3 mmHg (35.0-45.0)
[2017-07-14 13:24] LABS: ABG ALLEN TEST POSITIVE; ABG BASE EXCESS -8.3
[2017-07-14 13:34] LABS: BASOPHILS % (AUTO) 1.3 % (0.0-2.0); LYMPHOCYTES % (AUTO) 33.6 % (20.0-45.0); MEAN CORPUSCULAR HGB CONC 32.1 G/DL (32.0-36.0); MEAN CORPUSCULAR VOLUME 97 FL (80-99); MEAN PLATELET VOLUME 9.5 FL (6.5-10.1); MONOCYTES % (AUTO) 1.7 % (1.0-10.0); NEUTROPHILS % (AUTO) 62.4 % (45.0-75.0); PLATELET COUNT 221 K/UL (150-450); RED BLOOD COUNT 5.34 M/UL (4.70-6.10); RED CELL DISTRIBUTION WIDTH 12.9 % (11.6-14.8)
[2017-07-14] MEDS ORDERED: Vancomycin 1 GM in NS 275 ML IV ONE (13:45)
[2017-07-14] MEDS ORDERED: AMIKACIN IV ONE (13:45)
[2017-07-14] MEDS ORDERED: NS IV ONE (13:45)
[2017-07-14] MEDS ORDERED: XARELTO10 MG GT (13:49)
[2017-07-14] MEDS ORDERED: CATAPRES0.1 MG GT (13:49)
[2017-07-14] MEDS ORDERED: KEPPRA500 M4 GT (13:49)
[2017-07-14] MEDS ORDERED: COLACE100 MG GT (13:49)
[2017-07-14] MEDS ORDERED: CYCLOBENZAPRINE10 MG GT (13:49)
[2017-07-14] MEDS ORDERED: dulcolax supp RC (13:49)
[2017-07-14] MEDS ORDERED: OMEPRAZOLE20 M2 GT (13:49)
[2017-07-14] MEDS ORDERED: ACETAMINOP160 MG/5 M GT (13:49)
[2017-07-14] MEDS ORDERED: KEPPRA1000 MG ORAL (13:49)
[2017-07-14] MEDS ORDERED: MILK OF MA400 MG/51 GT (13:49)
[2017-07-14] MEDS ORDERED: LAMICTAL25 MG GT (13:49)
[2017-07-14] MEDS ORDERED: FLEET ENEMA133 ML RECTAL (13:49)
[2017-07-14] MEDS ORDERED: TEGRETOL200 MG GT (13:49)
[2017-07-14 13:52] LABS: APPEARANCE,URINE CLEAR; KETONES,URINE NEGATIVE (NEGATIVE); LEUKOCYTE ESTERASE ,URINE 1+ (NEGATIVE); NITRITE,URINE NEGATIVE (NEGATIVE); PH,URINE 7 (4.5-8.0); PROTEIN,URINE NEGATIVE (NEGATIVE); UROBILINOGEN,URINE 1 MG/DL (0.0-1.0)
[2017-07-14 13:58] LABS: ANION GAP 15 mmol/L (5-15); CALCIUM 9.3 MG/DL (8.5-10.1); CARBON DIOXIDE 21 MMOL/L (21-32); CHLORIDE 101 MMOL/L (98-107); POTASSIUM 3.8 MMOL/L (3.5-5.1); SODIUM 137 MMOL/L (136-145)
[2017-07-14] MEDS ORDERED: Amikacin 500mg/2mL Inj ONE ×2 (13:58→21:20)
[2017-07-14] MEDS ORDERED: Acetaminophen 650 MG SUPP RECTAL ONE (14:00)
[2017-07-14 14:03] LABS: ALANINE AMINOTRANSFERASE 16 U/L (12-78); ALBUMIN/GLOBULIN RATIO 0.9 (1.0-2.7); ASPARTATE AMINO TRANSFERASE 23 U/L (15-37); LIPASE 129 U/L (73-393); TOTAL PROTEIN 7.8 G/DL (6.4-8.2)
[2017-07-14 14:08] LABS: RBC,URINE 0 /HPF (0 - 0); SQUAMOUS EPITHELIAL CELL,UR OCCASIONAL /LPF (NONE/OCC); WBC,URINE 0-2 /HPF (0 - 0)
[2017-07-14] MEDS ORDERED: Amikacin 500 MG in NS 110 ML IV ONE (14:15)
[2017-07-14 14:17] LABS: REFLEX LACTIC ACID YES OR NO YES
[2017-07-14] MEDS ORDERED: Vancomycin 1gm inj IVPB ONE (15:25)
[2017-07-14] MEDS ORDERED: Lidocaine 1% Plain 30 ml INJ ONE (16:30)
[2017-07-14] MEDS ORDERED: Levophed 4mg/4mL Inj IV ONE (16:54)
[2017-07-14] MEDS ORDERED: Etomidate 40mg/20ml Inj IV ONE (17:15)
[2017-07-14] MEDS ORDERED: Zemuron 50mg/5ml Inj IV ONE (17:15)
--- NOTE | 2017-07-14 17:51 | Emergency Room Report ---
History of Present Illness General Chief Complaint: Altered Mental Status Source: Patient, Medical Record Present Illness Allergies: Coded Allergies: CODEINE (Verified Allergy, Unknown, 11/15/16) Patient History Past Medical History: see triage record Past Surgical History: none Pertinent Family History: none Reviewed Nursing Documentation: PMH: Agreed, PSxH: Agreed Nursing Documentation-PMH Hx Hypertension: Yes - Unspecified embolis of vein - FDC anticoagulant use Hx Diabetes: No Hx Cancer: Yes Hx Gastrointestinal Problems: Yes - G-tube; Liver cirrhosis History Of Psychiatric Problem: Yes - Anxiety disorder; ETOH dependence; Cocaine abuse Hx Neurological Problems: Yes - Encephalopathy Hx Seizures: Yes Physical Exam Vital Signs Date Time Temp Pulse Resp B/P (MAP) Pulse Ox O2 Delivery O2 Flow Rate FiO2 07/14/17 12:56 100.0 115 28 101/72 100 Non-Rebreather 07/14/17 13:10 15.0 07/14/17 17:30 100 Procedures Central Line Central Line : Consent: Emergent Central Line Lumen: triple Maximal Sterile Barrier Tech: yes cap, yes mask, yes sterile gown, yes sterile gloves, yes large sterile sheet, yes hand hygiene, yes chlorhexidine prep No Max Barrier Tech Because: emergency insertion Central Line Postion: internal jugular (R) Anesthesia: Lidocaine cc's of anesthesia: 5 Complications: none Central Line Post Position: sutured, good blood return, position confirmed w / CXR Attempts: One Patient Tolerated: Well Complications: None Intubation Intubation : Consent: Emergent Intubation Method: orotracheal Tube Size (cm): 7.5 Medications: Etomidate, Rocuronium Breath Sounds after Intubation: equal Intubation Complications: no complications Post Intubation Xray: Yes Attempts: One Patient Tolerated: Well Complications: None Medical Decision Making Diagnostic Impression: Primary Impression: Altered mental status Qualified Codes: R41.82 - Altered mental status, unspecified Additional Impressions: Anoxic encephalopathy syndrome Sepsis Qualified Codes: A41.9 - Sepsis, unspecified organism ER Course Patient requiring central line for hypotension, intubated for airway protection and hypoxia. NG tube placed Current drips: Levothroid and propofol drip Sepsis Re-examination Time: 8:00pm VS: Temp 98 HR 130 BP 112/80 RR 16 CVS: RRR Respiratory: Lungs are clear Peripheral pulses: 2+ radial Capillary refill: <2 seconds Skin exam: warm, dry, no rash, not mottled Notified Dr. Shelton at 5:50pm patient to go to ICU Chest X-ray CXR: Ordered: Yes 1 view Indication: ET tube placement, CVP placement, NG tube placement EP interpretation: Yes Interpretation: ET tube is in appropriate position, CVP and noted in the superior vena cava, NG tube is in stomach Impression: Please see impression Electronically signed by Dwayne Bose MD Last Vital Signs Date Time Temp Pulse Resp B/P (MAP) Pulse Ox O2 Delivery O2 Flow Rate FiO2 07/14/17 17:30 100 07/14/17 17:14 85/60 07/14/17 16:10 107 16 100 Venturi Mask 10.0 07/14/17 15:22 98.9 Disposition: ADMITTED INPATIENT Condition: Critical [facility] Dwayne Bose M.D. Jul 14, 2017 17:51
[2017-07-14] MEDS ORDERED: XARELTO20 MG GT (18:16)
[2017-07-14] MEDS ORDERED: PROMOD946 ML GT (18:16)
[2017-07-14] MEDS ORDERED: LAMOTRIGINE300 MG GT (18:26)
[2017-07-14 19:07] LABS: ABG ALLEN TEST POSITIVE; ABG BASE EXCESS -10.4; ABG PCO2 54.1 mmHg (35.0-45.0)
[2017-07-14] MEDS ORDERED: Amikacin Rx to dose MISC PRN ×2 (19:30→20:00)
--- NOTE | 2017-07-14 19:39 | History & Physical ---
History and Physical History & Physicial 62-year-old male brought in from snf with acute altered mental status, hypoxia, and CRE on isolation. Patient with history of trach and was decannulated. He had improved and able to swallow. He had a trach/GT Patient was noted to be acidemic and intubated. Patient now being admitted to ICU PMH 1. Prior sepsis. 2. History of respiratory failure. 3. Urinary tract infection with Proteus mirabilis extended-spectrum beta-lactamases. 4. Prior pneumonia with Pseudomonas and Streptococcus group G and Stenotrophomonas maltophilia. 5. Acute kidney injury. 6. chronic anoxic encephalopathy. 7. Seizure disorder. 8. Feeding via gastrostomy tube. 9. Hypertension. 10. Chronic obstructive pulmonary disease 11. Anemia of chronic disease. 12. Elevated alkaline phosphatase. 13. History of cocaine abuse in the past. 14. History of alcoholic liver cirrhosis. Social history resides at [place] Physical Exam WDWN NAD clear breath sounds bilaterally without rhonchi or wheeze [id number] without MRG NABS nontender no HSM no CCE nonfocal intubated reduced LOC Laboratory Tests Test 07/14/17 13:20 07/14/17 13:21 07/14/17 13:37 07/14/17 15:15 White Blood Count 4.0 K/UL (4.8-10.8) L Red Blood Count 5.34 M/UL (4.70-6.10) Hemoglobin 16.5 G/DL (14.2-18.0) Hematocrit 51.6 % (42.0-52.0) Mean Corpuscular Volume 97 FL (80-99) Mean Corpuscular Hemoglobin 31.0 PG (27.0-31.0) Mean Corpuscular Hemoglobin Concent 32.1 G/DL (32.0-36.0) Red Cell Distribution Width 12.9 % (11.6-14.8) Platelet Count 221 K/UL (150-450) Mean Platelet Volume 9.5 FL (6.5-10.1) Neutrophils (%) (Auto) 62.4 % (45.0-75.0) Lymphocytes (%) (Auto) 33.6 % (20.0-45.0) Monocytes (%) (Auto) 1.7 % (1.0-10.0) Eosinophils (%) (Auto) 1.0 % (0.0-3.0) Basophils (%) (Auto) 1.3 % (0.0-2.0) Sodium Level 137 MMOL/L (136-145) Potassium Level 3.8 MMOL/L (3.5-5.1) Chloride Level 101 MMOL/L (98-107) Carbon Dioxide Level 21 MMOL/L (21-32) Anion Gap 15 mmol/L (5-15) Blood Urea Nitrogen 16 mg/dL (7-18) Creatinine 2.0 MG/DL (0.55-1.30) H Estimat Glomerular Filtration Rate 41.0 mL/min (>60) Glucose Level 175 MG/DL (74-106) H Lactic Acid Level 5.80 mmol/L (0.66-2.22) H 5.80 mmol/L (0.66-2.22) H Calcium Level 9.3 MG/DL (8.5-10.1) Total Bilirubin 0.5 MG/DL (0.2-1.0) Aspartate Amino Transf (AST/SGOT) 23 U/L (15-37) Alanine Aminotransferase (ALT/SGPT) 16 U/L (12-78) Alkaline Phosphatase 164 U/L (46-116) H Total Creatine Kinase 103 U/L (26-308) Creatine Kinase MB 4.0 NG/ML (0.0-3.6) H Creatine Kinase MB Relative Index 3.8 Troponin I 0.000 ng/mL (0.000-0.056) Total Protein 7.8 G/DL (6.4-8.2) Albumin 3.6 G/DL (3.4-5.0) Globulin 4.2 g/dL Albumin/Globulin Ratio 0.9 (1.0-2.7) L Lipase 129 U/L (73-393) Carbamazepine (Tegretol) Level 10.2 ug/mL (4.0-12.0) Arterial Blood pH 7.250 (7.350-7.450) Arterial Blood Partial Pressure CO2 42.3 mmHg (35.0-45.0) Arterial Blood Partial Pressure O2 83.3 mmHg (75.0-100.0) Arterial Blood HCO3 18.4 mmol/L (22.0-26.0) L Arterial Blood Oxygen Saturation 94.2 % (92.0-98.0) Arterial Blood Base Excess -8.3 Aston Test Positive Urine Color Yellow Urine Appearance Clear Urine pH 7 (4.5-8.0) Urine Specific [place] 1.010 (1.005-1.035) Urine Protein Negative (NEGATIVE) Urine Glucose (UA) Negative (NEGATIVE) Urine Ketones Negative (NEGATIVE) Urine Occult Blood Negative (NEGATIVE) Urine Nitrite Negative (NEGATIVE) Urine Bilirubin Negative (NEGATIVE) Urine Urobilinogen 1 MG/DL (0.0-1.0) H Urine Leukocyte Esterase 1+ (NEGATIVE) H Urine RBC 0 /HPF (0 - 0) Urine WBC 0-2 /HPF (0 - 0) Urine Squamous Epithelial Cells Occasional /LPF Urine Bacteria None /HPF (NONE) Urine Opiates Screen Negative (NEGATIVE) Urine Barbiturates Screen Negative (NEGATIVE) Phencyclidine (PCP) Screen Negative (NEGATIVE) Urine Amphetamines Screen Negative (NEGATIVE) Urine Benzodiazepines Screen Negative (NEGATIVE) Urine Cocaine Screen Negative (NEGATIVE) Urine Marijuana (THC) Screen Negative (NEGATIVE) Test 07/14/17 18:06 Arterial Blood pH 7.160 (7.350-7.450) Arterial Blood Partial Pressure CO2 54.1 mmHg (35.0-45.0) H Arterial Blood Partial Pressure O2 67.4 mmHg (75.0-100.0) L Arterial Blood HCO3 18.9 mmol/L (22.0-26.0) L Arterial Blood Oxygen Saturation 88.1 % (92.0-98.0) L Arterial Blood Base Excess -10.4 Aston Test Positive IMPRESSION sepsis elevated lactic acid respiratory failure ho alcholic liver disease seizure disorder PLAN NGT ventilator follow up ABG monitor PH seizure meds IV antibiotics to include amikacin ID evaluation guarded d/w daughter EUSEBIO CRESPO Jul 14, 2017 19:39
[2017-07-14] MEDS ORDERED: Amikacin 750 MG in NS 110 ML IV ONE (21:00)
[2017-07-14 21:36] LABS: ABG PCO2 46.6 mmHg (35.0-45.0)
[2017-07-14] MEDS: carBAMazepine 200mg tab GT SCH (21:36)
[2017-07-14 21:37] LABS: ABG ALLEN TEST POSITIVE
[2017-07-14] MEDS ORDERED: Piperacillin/Tazobactam 3.375 GM in NS 55 ML IVPB ONE (21:45)
[2017-07-14] MEDS ORDERED: Zosyn 3.375gm inj ONE (21:47)
[2017-07-14] MEDS: Albuterol ud Inhalation HHN SCH (23:12)
[2017-07-14] MEDS ORDERED: Ertapenem (INVanz) 1gm Inj ONE (23:48)
[2017-07-14] MEDS: Ertapenem 1 GM in NS 55 ML IVPB SCH (23:49)
[2017-07-15] VITALS (66 sets, daily range): BP systolic 67–113; BP diastolic 30–70
[2017-07-15 02:55] LABS: REFLEX LACTIC ACID YES OR NO YES
[2017-07-15] MEDS: Albuterol ud Inhalation HHN SCH ×6 (03:00→23:00)
[2017-07-15 03:09] LABS: ABG ALLEN TEST POSITIVE; ABG BASE EXCESS -12.3; ABG PCO2 32.9 mmHg (35.0-45.0)
[2017-07-15] MEDS ORDERED: Acetaminophen 650 MG SUPP RECTAL ONE (04:00)
[2017-07-15] MEDS ORDERED: Levophed 4mg/4mL Inj IV ONE ×2 (04:50→10:00)
[2017-07-15 05:58] LABS: MEAN CORPUSCULAR HEMOGLOBIN 31.4 PG (27.0-31.0); MEAN CORPUSCULAR HGB CONC 32.5 G/DL (32.0-36.0); MEAN CORPUSCULAR VOLUME 97 FL (80-99); PLATELET COUNT 115 K/UL (150-450); RED BLOOD COUNT 4.03 M/UL (4.70-6.10); WHITE BLOOD COUNT 4.8 K/UL (4.8-10.8)
[2017-07-15] MEDS ORDERED: Phenylephrine 50 MG in D5W 245 ML IV SCH (06:30)
[2017-07-15] MEDS ORDERED: Phenylephrine 10mg/ml 5ml vial IV ONE ×2 (06:34→10:42)
[2017-07-15 07:14] LABS: ABG BASE EXCESS -10.2; ABG PCO2 33.1 mmHg (35.0-45.0)
[2017-07-15 07:15] LABS: ABG ALLEN TEST POSITIVE
[2017-07-15 07:42] LABS: BAND NEUTROPHILS % (MANUAL) 61 % (0-8); BASOPHILS % (MANUAL) 0 % (0-2); EOSINOPHILS % (MANUAL) 1 % (0-3); LYMPHOCYTES % (MANUAL) 8 % (20-45); NEUTROPHILS % (MANUAL) 29 % (45-75); PLATELET ESTIMATE DECREASED; TOTAL CELLS COUNTED 100
[2017-07-15 07:43] LABS: PLATELET MORPHOLOGY NORMAL
--- NOTE | 2017-07-15 08:35 | Diagnostic Imaging Report ---
Indication: Shortness of breath Technique: One view of the chest Comparison: 01/08/2017 Findings: Reticulonodular interstitial disease is seen in the bilateral perihilar regions and lung bases, new or increased from the previous study. There is equivocal slight blunting of bilateral costophrenic angles, small effusions not excludable. The heart is mildly enlarged. Previously demonstrated tracheostomy is no longer evident. Previously demonstrated PICC is no longer evident. Impression: Bilateral reticulonodular interstitial disease, as described, new or increased since previous study of 01/08/2017. Findings may represent interstitial edema, versus infectious or noninfectious inflammatory processes, among other possibilities. Correlate with clinical findings
[2017-07-15] MEDS ORDERED: Xarelto 10mg tab ORAL SCH (09:00)
[2017-07-15] MEDS: carBAMazepine 200mg tab GT SCH ×2 (09:15→21:12)
[2017-07-15] MEDS: LaMICtal 150mg tab GT SCH (09:17)
--- NOTE | 2017-07-15 09:23 | Diagnostic Imaging Report ---
Indication: Interim central venous catheter placement Technique: One view of the chest Comparison: 3-1/2 hours earlier Findings: Interim placement of a right jugular central venous catheter, tip of which projects at the expected level of the cavoatrial junction. Bilateral mostly perihilar interstitial and alveolar disease persists, may be slightly increased since previous study. Pleural spaces remain clear. The heart size is upper limits of normal. No pneumothorax Impression: Satisfactory placement right internal jugular central venous catheter Bilateral interstitial and of perihilar disease, appearing somewhat increased from earlier exam
--- NOTE | 2017-07-15 09:56 | Diagnostic Imaging Report ---
Indication: TUBE PLCDE Technique: One view of the chest Comparison: 1-1/2 hours earlier Findings: Interim endotracheal intubation, endotracheal tube tip projecting above the thoracic inlet and just below the focal cords. Inspiration is less optimal. There is increasing consolidation and atelectasis and retrocardiac region. Perihilar interstitial and alveolar disease persists. Right jugular central venous catheter remains Impression: High position of endotracheal tube, as described Other findings as noted
--- NOTE | 2017-07-15 10:04 | Diagnostic Imaging Report ---
Indication: TUBE PLCMT status post advancement of endotracheal tube Technique: One view of the chest Comparison: 1-1/2 hours earlier Findings: Interim advancement of previously demonstrated proximally positioned endotracheal tube, tip now projecting at the orifice of the right mainstem bronchus. Pulmonary parenchymal changes and possible left pleural effusion remain unchanged. Impression: Low position of endotracheal tube, now at the right mainstem bronchus orifice.
[2017-07-15 10:28] LABS: ANION GAP 18 mmol/L (5-15); CALCIUM 7.5 MG/DL (8.5-10.1); CARBON DIOXIDE 13 MMOL/L (21-32); CHLORIDE 110 MMOL/L (98-107); CREATININE 2.7 MG/DL (0.55-1.30); POTASSIUM 3.7 MMOL/L (3.5-5.1); SODIUM 141 MMOL/L (136-145)
--- NOTE | 2017-07-15 10:28 | Emergency Room Report ---
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 Hx Diabetes: No Hx Cancer: Yes Hx Gastrointestinal Problems: Yes - G-tube; Liver cirrhosis History Of Psychiatric Problem: Yes - Anxiety disorder; ETOH dependence; Cocaine abuse Hx Neurological Problems: Yes - Encephalopathy Hx Seizures: Yes Physical Exam Vital Signs Date Time Temp Pulse Resp B/P (MAP) Pulse Ox O2 Delivery O2 Flow Rate FiO2 07/14/17 12:56 100.0 115 28 101/72 100 Non-Rebreather 07/14/17 13:10 15.0 07/14/17 17:30 100 Procedures Critical Care Time Critical Care Time 45 minutes CC time includes review of previous 2 ERMD charting, updated labs Includes assessment of sedation vs pressor use for septic shock Includes bedside reassessment for balance of sedation and 2 pressors, d/w hospitalist Medical Decision Making Diagnostic Impression: Primary Impression: Altered mental status Qualified Codes: R41.82 - Altered mental status, unspecified Additional Impressions: Anoxic encephalopathy syndrome Sepsis Qualified Codes: A41.9 - Sepsis, unspecified organism Septic shock ER Course 62-year-old male signed out to me by Dr. martinez at 6:30 AM Patient known to me from previous shift In the interim patient was intubated and started on central line pressors Patient's blood pressure continues to downtrend Was started on second pressor overnight and maximized on that medication as well We were able to wean off propofol with improved blood pressure There are not enough nurses in the ICU and patient continues to board an ER Patient has been boarding for almost 24 hours We spoke with Dr. menjivar who is the patient's hospitalist with an update of the patient's situation Patient now has likely septic shock we will continue to monitor and manage patient while he boards in the ER Last Vital Signs Date Time Temp Pulse Resp B/P (MAP) Pulse Ox O2 Delivery O2 Flow Rate FiO2 07/15/17 10:00 99.6 124 30 92/56 100 Mechanical Ventilator 10.0 50 Status: improved Disposition: ADMITTED INPATIENT Condition: Critical Referrals: EMPLOYEE [facility] (PCP) BIJAN GODINEZ M.D. Jul 15, 2017 10:28
--- NOTE | 2017-07-15 11:21 | Critical Care Progress Note ---
Assessment/Plan Assessment/Plan IMPRESSION sepsis elevated lactic acid respiratory failure ho alcholic liver disease seizure disorder PLAN NGT ventilator follow up ABG monitor PH and adjust pressors seizure meds IV antibiotics to include amikacin ID evaluation guarded feeds when bp is stable d/w daughter Critical Care - Subjective Interval Events: hypotensive overnight ROS Limited/Unobtainable: Yes Condition: critical EKG Rhythm: Sinus Rhythm I&O: Intake and Output 07/15/17 07/16/17 19:00 07:00 Output Total 350 ml Balance -350 ml Output Urine Total 350 ml Critical Care - Objective ET-Tube: 7.5 ET Position: 21 Last 24 Hour Vital Signs Date Time Temp Pulse Resp B/P (MAP) Pulse Ox O2 Delivery O2 Flow Rate FiO2 07/15/17 10:28 96/54 07/15/17 10:00 99.6 124 30 92/56 100 Mechanical Ventilator 10.0 50 07/15/17 10:00 99.6 123 28 99/52 100 Mechanical Ventilator 10.0 50 07/15/17 09:50 99.9 121 30 75/51 100 Mechanical Ventilator 10.0 50 07/15/17 09:40 99.9 120 31 99/65 100 Mechanical Ventilator 10.0 50 07/15/17 09:30 99.7 120 27 91/57 100 Mechanical Ventilator 10.0 50 07/15/17 09:20 99.7 120 26 83/59 100 Mechanical Ventilator 10.0 50 07/15/17 09:10 99.5 120 27 87/60 100 Mechanical Ventilator 10.0 50 07/15/17 09:00 99.4 118 26 85/58 100 Mechanical Ventilator 10.0 50 07/15/17 08:50 99.2 118 26 82/57 100 Mechanical Ventilator 10.0 50 07/15/17 08:40 99.7 117 26 85/57 100 Mechanical Ventilator 10.0 50 07/15/17 08:30 99.7 121 26 95/70 100 Mechanical Ventilator 10.0 50 07/15/17 08:20 100.0 117 27 86/57 100 Mechanical Ventilator 10.0 50 07/15/17 08:10 100.0 117 30 82/58 100 Mechanical Ventilator 10.0 50 07/15/17 08:08 116 29 50 07/15/17 08:00 100.0 118 28 76/54 100 Mechanical Ventilator 10.0 50 07/15/17 07:50 100.0 120 30 82/56 100 Mechanical Ventilator 10.0 50 07/15/17 07:45 27 07/15/17 07:40 29 07/15/17 07:40 100.3 118 30 82/55 100 Mechanical Ventilator 10.0 50 07/15/17 07:33 26 07/15/17 07:30 100.3 118 29 84/65 100 Mechanical Ventilator 10.0 50 07/15/17 07:26 119 29 50 07/15/17 06:54 26 07/15/17 06:48 100.3 121 27 83/55 100 Mechanical Ventilator 10.0 50 07/15/17 06:44 120 80/48 07/15/17 05:31 100.3 123 30 92/58 100 Mechanical Ventilator 10.0 50 07/15/17 05:25 27 07/15/17 05:19 123 28 50 07/15/17 03:56 26 07/15/17 03:45 101.4 126 29 90/56 100 Mechanical Ventilator 10.0 50 07/15/17 03:21 Mechanical Ventilator 07/15/17 03:21 Mechanical Ventilator 07/15/17 03:19 125 18 60 07/15/17 01:28 120 21 100 07/15/17 01:25 98.8 126 27 87/64 95 Mechanical Ventilator 10.0 100 07/15/17 01:25 25 07/15/17 00:18 25 07/15/17 00:16 98.8 120 22 77/54 100 Mechanical Ventilator 10.0 100 07/15/17 00:02 22 07/14/17 23:59 75/50 07/14/17 23:50 75/43 07/14/17 23:42 79/53 07/14/17 23:30 67/40 07/14/17 23:20 125 20 98 Mechanical Ventilator 50 07/14/17 23:13 117 20 99 Mechanical Ventilator 50 07/14/17 23:08 124 16 100 07/14/17 23:06 26 07/14/17 23:00 98.8 124 24 103/53 92 Mechanical Ventilator 10.0 50 07/14/17 22:18 98.8 126 23 106/69 95 Mechanical Ventilator 10.0 100 07/14/17 21:39 69/45 12/3/17 21:26 68/48 07/14/17 21:05 112 20 100 07/14/17 20:54 74/55 07/14/17 20:29 91/86 07/14/17 20:24 75/51 07/14/17 20:00 77/54 07/14/17 19:15 115 16 100 07/14/17 19:00 140 15 111/68 96 Mechanical Ventilator 50 07/14/17 19:00 15 07/14/17 18:52 15 07/14/17 18:45 139 15 104/72 100 Mechanical Ventilator 50 07/14/17 18:45 15 07/14/17 18:30 139 15 115/78 98 Mechanical Ventilator 50 07/14/17 18:30 15 07/14/17 18:15 139 15 151/100 100 Mechanical Ventilator 50 07/14/17 18:15 15 07/14/17 18:10 50 07/14/17 18:00 15 07/14/17 18:00 136 15 165/107 100 Mechanical Ventilator 100 07/14/17 17:54 135 14 Mechanical Ventilator 07/14/17 17:45 15 07/14/17 17:45 157/112 07/14/17 17:40 168/109 07/14/17 17:38 133 14 100 07/14/17 17:35 163/112 07/14/17 17:30 100 07/14/17 17:30 188/116 07/14/17 17:25 127/101 07/14/17 17:20 99/71 07/14/17 17:15 110/69 07/14/17 17:14 85/60 07/14/17 17:10 100/73 07/14/17 17:05 80/55 07/14/17 17:00 85/60 07/14/17 16:10 107 16 74/38 100 Venturi Mask 10.0 07/14/17 15:22 98.9 07/14/17 15:21 98.9 107 25 125/75 100 Venturi Mask 10.0 07/14/17 13:10 100.1 115 30 96/65 100 Non-Rebreather 15.0 07/14/17 12:56 100.0 115 28 101/72 100 Non-Rebreather Labs: Labs Test 07/14/17 13:20 12/3/17 13:21 07/14/17 13:37 07/14/17 15:15 White Blood Count 4.0 K/UL (4.8-10.8) Red Blood Count 5.34 M/UL (4.70-6.10) Hemoglobin 16.5 G/DL (14.2-18.0) Hematocrit 51.6 % (42.0-52.0) Mean Corpuscular Volume 97 FL (80-99) Mean Corpuscular Hemoglobin 31.0 PG (27.0-31.0) Mean Corpuscular Hemoglobin Concent 32.1 G/DL (32.0-36.0) Red Cell Distribution Width 12.9 % (11.6-14.8) Platelet Count 221 K/UL (150-450) Mean Platelet Volume 9.5 FL (6.5-10.1) Neutrophils (%) (Auto) 62.4 % (45.0-75.0) Lymphocytes (%) (Auto) 33.6 % (20.0-45.0) Monocytes (%) (Auto) 1.7 % (1.0-10.0) Eosinophils (%) (Auto) 1.0 % (0.0-3.0) Basophils (%) (Auto) 1.3 % (0.0-2.0) Sodium Level 137 MMOL/L (136-145) Potassium Level 3.8 MMOL/L (3.5-5.1) Chloride Level 101 MMOL/L (98-107) Carbon Dioxide Level 21 MMOL/L (21-32) Anion Gap 15 mmol/L (5-15) Blood Urea Nitrogen 16 mg/dL (7-18) Creatinine 2.0 MG/DL (0.55-1.30) Estimat Glomerular Filtration Rate 41.0 mL/min (>60) Glucose Level 175 MG/DL (74-106) Lactic Acid Level 5.80 mmol/L (0.66-2.22) 5.80 mmol/L (0.66-2.22) Calcium Level 9.3 MG/DL (8.5-10.1) Total Bilirubin 0.5 MG/DL (0.2-1.0) Aspartate Amino Transf (AST/SGOT) 23 U/L (15-37) Alanine Aminotransferase (ALT/SGPT) 16 U/L (12-78) Alkaline Phosphatase 164 U/L (46-116) Total Creatine Kinase 103 U/L (26-308) Creatine Kinase MB 4.0 NG/ML (0.0-3.6) Creatine Kinase MB Relative Index 3.8 Troponin I 0.000 ng/mL (0.000-0.056) Total Protein 7.8 G/DL (6.4-8.2) Albumin 3.6 G/DL (3.4-5.0) Globulin 4.2 g/dL Albumin/Globulin Ratio 0.9 (1.0-2.7) Lipase 129 U/L (73-393) Carbamazepine (Tegretol) Level 10.2 ug/mL (4.0-12.0) Arterial Blood pH 7.250 (7.350-7.450) Arterial Blood Partial Pressure CO2 42.3 mmHg (35.0-45.0) Arterial Blood Partial Pressure O2 83.3 mmHg (75.0-100.0) Arterial Blood HCO3 18.4 mmol/L (22.0-26.0) Arterial Blood Oxygen Saturation 94.2 % (92.0-98.0) Arterial Blood Base Excess -8.3 Aston Test Positive Urine Color Yellow Urine Appearance Clear Urine pH 7 (4.5-8.0) Urine Specific [place] 1.010 (1.005-1.035) Urine Protein Negative (NEGATIVE) Urine Glucose (UA) Negative (NEGATIVE) Urine Ketones Negative (NEGATIVE) Urine Occult Blood Negative (NEGATIVE) Urine Nitrite Negative (NEGATIVE) Urine Bilirubin Negative (NEGATIVE) Urine Urobilinogen 1 MG/DL (0.0-1.0) Urine Leukocyte Esterase 1+ (NEGATIVE) Urine RBC 0 /HPF (0 - 0) Urine WBC 0-2 /HPF (0 - 0) Urine Squamous Epithelial Cells Occasional /LPF Urine Bacteria None /HPF (NONE) Urine Opiates Screen Negative (NEGATIVE) Urine Barbiturates Screen Negative (NEGATIVE) Phencyclidine (PCP) Screen Negative (NEGATIVE) Urine Amphetamines Screen Negative (NEGATIVE) Urine Benzodiazepines Screen Negative (NEGATIVE) Urine Cocaine Screen Negative (NEGATIVE) Urine Marijuana (THC) Screen Negative (NEGATIVE) Test 07/14/17 18:06 07/14/17 21:16 07/15/17 01:10 07/15/17 02:45 Arterial Blood pH 7.160 (7.350-7.450) 7.167 (7.350-7.450) 7.242 (7.350-7.450) Arterial Blood Partial Pressure CO2 54.1 mmHg (35.0-45.0) 46.6 mmHg (35.0-45.0) 32.9 mmHg (35.0-45.0) Arterial Blood Partial Pressure O2 67.4 mmHg (75.0-100.0) 51.7 mmHg (75.0-100.0) 110.1 mmHg (75.0-100.0) Arterial Blood HCO3 18.9 mmol/L (22.0-26.0) 16.5 mmol/L (22.0-26.0) 13.8 mmol/L (22.0-26.0) Arterial Blood Oxygen Saturation 88.1 % (92.0-98.0) 79.8 % (92.0-98.0) 97.8 % (92.0-98.0) Arterial Blood Base Excess -10.4 -12.0 -12.3 Aston Test Positive Positive Positive Lactic Acid Level 6.00 mmol/L (0.66-2.22) Test 07/15/17 05:20 07/15/17 07:00 White Blood Count 4.8 K/UL (4.8-10.8) Red Blood Count 4.03 M/UL (4.70-6.10) Hemoglobin 12.7 G/DL (14.2-18.0) Hematocrit 39.1 % (42.0-52.0) Mean Corpuscular Volume 97 FL (80-99) Mean Corpuscular Hemoglobin 31.4 PG (27.0-31.0) Mean Corpuscular Hemoglobin Concent 32.5 G/DL (32.0-36.0) Red Cell Distribution Width 13.0 % (11.6-14.8) Platelet Count 115 K/UL (150-450) Mean Platelet Volume 13.0 FL (6.5-10.1) Neutrophils (%) (Auto) % (45.0-75.0) Lymphocytes (%) (Auto) % (20.0-45.0) Monocytes (%) (Auto) % (1.0-10.0) Eosinophils (%) (Auto) % (0.0-3.0) Basophils (%) (Auto) % (0.0-2.0) Differential Total Cells Counted 100 Neutrophils % (Manual) 29 % (45-75) Lymphocytes % (Manual) 8 % (20-45) Monocytes % (Manual) 1 % (1-10) Eosinophils % (Manual) 1 % (0-3) Basophils % (Manual) 0 % (0-2) Band Neutrophils 61 % (0-8) Platelet Estimate Decreased Platelet Morphology Normal Red Blood Cell Morphology Normal Sodium Level 141 MMOL/L (136-145) Potassium Level 3.7 MMOL/L (3.5-5.1) Chloride Level 110 MMOL/L (98-107) Carbon Dioxide Level 13 MMOL/L (21-32) Anion Gap 18 mmol/L (5-15) Blood Urea Nitrogen 25 mg/dL (7-18) Creatinine 2.7 MG/DL (0.55-1.30) Estimat Glomerular Filtration Rate 29.0 mL/min (>60) Glucose Level 62 MG/DL (74-106) Lactic Acid Level 6.00 mmol/L (0.66-2.22) Calcium Level 7.5 MG/DL (8.5-10.1) Triglycerides Level 95 MG/DL (30-150) Carbamazepine (Tegretol) Level 4.6 ug/mL (4.0-12.0) Arterial Blood pH 7.280 (7.350-7.450) Arterial Blood Partial Pressure CO2 33.1 mmHg (35.0-45.0) Arterial Blood Partial Pressure O2 80.3 mmHg (75.0-100.0) Arterial Blood HCO3 15.3 mmol/L (22.0-26.0) Arterial Blood Oxygen Saturation 94.6 % (92.0-98.0) Arterial Blood Base Excess -10.2 Aston Test Positive Objective: WDWN very ill intubated clear breath sounds bilaterally without rhonchi or wheeze [id number] without MRG NABS nontender no HSM no CC some edema reduced LOC Micro: Microbiology Date/Time Source Procedure Growth Status 07/14/17 13:20 Blood Blood Culture - Preliminary Resulted EUSEBIO CRESPO Jul 15, 2017 11:21
[2017-07-15] MEDS: Phenylephrine 50 MG in D5W 245 ML IV SCH ×4 (11:45→22:42)
--- NOTE | 2017-07-15 14:35 | Diagnostic Imaging Report ---
Indication: SOB, status post endotracheal tube readjustment Technique: One view of the chest Comparison: 9 hours earlier Findings: Interim slight withdrawal of the previously demonstrated malposition of endotracheal tube, tip now just above the anthony, position satisfactory. The nasogastric tube appears to be retracted, proximal port now at the gastroesophageal junction Dempsey SGPT and mass bilateral diffuse interstitial and alveolar infiltrates versus edema persists. The heart is borderline enlarged. Right jugular central venous catheter remains. Impression: Improved position of endotracheal tube, tip now just above the anthony Interim malposition of nasogastric tube, which is retracted somewhat, needs to be advanced. This critical value finding was phoned to patient's nurse at the time of interpretation Other stable findings as described
--- NOTE | 2017-07-15 15:15 | Consultation ---
DATE OF CONSULTATION: 07/15/2017 INFECTIOUS DISEASE CONSULTATION REFERRING PHYSICIAN: Gerber Shelton M.D. REASON FOR CONSULTATION: Urinary tract infection and pneumonia. HISTORY OF PRESENTING ILLNESS: This is a 62-year-old gentleman with history of respiratory failure status post tracheostomy as well as seizure disorder, acute kidney injury and hypertension who came in from a [facility] facility with altered mental status and hypoxia. He was found to have a Proteus urinary tract infection and Pseudomonas and group G streptococcus and Stenotrophomonas pneumonia and Infectious Diseases consultation has been obtained for antibiotics. PAST MEDICAL HISTORY: 1. History of urinary tract infection. 2. Pneumonia. 3. Acute kidney injury. 4. Seizure disorder. 5. Encephalopathy. 6. Status post G-tube placement. 7. Hypertension. 8. Chronic obstructive pulmonary disease. 9. Cirrhosis. MEDICATIONS: As an inpatient, the patient is on IV vancomycin, Prevacid, norepinephrine, propofol, phenylephrine, lamotrigine, Xarelto, Proventil, ertapenem, Tegretol, Keppra, Tylenol, and intravenous amikacin. ALLERGIES: The patient is allergic to codeine. SOCIAL HISTORY: He has a history of cocaine abuse in the past. FAMILY HISTORY: Unknown. REVIEW OF SYSTEMS: Unable to obtain currently. PHYSICAL EXAMINATION: VITAL SIGNS: Temperature of 99.6 degrees, T-max of 100.3 degrees, pulse of 121, respiratory 29, blood pressure 92/60 and O2 saturation of 100%. HEENT: Pupils equally reactive to light and accommodation. Mouth appears clean without thrush. The patient is intubated. NECK: Supple. No adenopathy. No JVD. CARDIOVASCULAR: Regular rate and rhythm. No murmurs. LUNGS: Clear to auscultation bilaterally. No crackles. No wheezes. ABDOMEN: Soft and nontender. No organomegaly. G-tube site appears clean. EXTREMITIES: No cyanosis, no clubbing, and no edema. Right IJ catheter noted. LABORATORY AND DIAGNOSTIC DATA: White count 4.8, hemoglobin 12.7, hematocrit 39.1, MCV 97 and platelet count of 115. Sodium 141, potassium 3.7, chloride 110, bicarbonate 13, BUN 25, creatinine 2.7, and glucose of 62. Calcium 7.5. UA showing 0 to 2 white cells. Blood cultures growing gram-positive cocci in clusters. Chest x-ray is showing pulmonary parenchymal changes and possible left-sided pleural effusion. ASSESSMENT: 1. This is a 62-year-old gentleman with history of acute kidney injury, pneumonia, and urinary tract infection who comes in with a repeat urinary tract infection. 2. We would like to rule out pneumonia as a possibility. 3. He has gram-positive sepsis. 4. Renal failure. PLAN: 1. Continue ertapenem. 2. Discontinue amikacin. 3. Discontinue vancomycin. 4. We will start the patient on linezolid. 5. We will follow up cultures and adjust antibiotics accordingly. 6. We will order urine cultures and sputum cultures. I would like to thank, Dr. Shelton, for this consultation. Juju Marques M.D. DR: RICK JOB#: [id number] CC: Gerber Shelton M.D.; Fax#: [phone]
[2017-07-15] MEDS ORDERED: Vancomycin 1gm in D5W 275ml IVPB SCH (18:00)
--- NOTE | 2017-07-15 18:37 | Cardiology Report ---
APPROVED REPORT EKG Measurement Heart [id number] Sinus tachycardia Nonspecific ST and T wave abnormality Abnormal ECG
[2017-07-15] MEDS: Ertapenem 1 GM in NS 55 ML IVPB SCH (21:43)
[2017-07-15 22:27] LABS: REFLEX LACTIC ACID YES OR NO YES
[2017-07-15] MEDS: Acetaminophen 650mg/20.3ml ORAL PRN (22:43)
[2017-07-16] VITALS (92 sets, daily range): BP systolic 89–114; BP diastolic 27–79
[2017-07-16] MEDS: Phenylephrine 50 MG in D5W 245 ML IV SCH ×6 (02:42→21:45)
[2017-07-16] MEDS: Albuterol ud Inhalation HHN SCH ×6 (03:00→22:38)
[2017-07-16 05:05] LABS: ANION GAP 15 mmol/L (5-15); CALCIUM 7.2 MG/DL (8.5-10.1); CARBON DIOXIDE 16 MMOL/L (21-32); CHLORIDE 100 MMOL/L (98-107); CREATININE 2.8 MG/DL (0.55-1.30); GLOMERULAR FILTRATION RATE 27.8 mL/min (>60); POTASSIUM 4.7 MMOL/L (3.5-5.1); SODIUM 131 MMOL/L (136-145)
[2017-07-16 05:09] LABS: MEAN CORPUSCULAR HGB CONC 33.5 G/DL (32.0-36.0); MEAN CORPUSCULAR VOLUME 95 FL (80-99); PLATELET COUNT 83 K/UL (150-450); RED BLOOD COUNT 4.17 M/UL (4.70-6.10); RED CELL DISTRIBUTION WIDTH 12.9 % (11.6-14.8); WHITE BLOOD COUNT 18.8 K/UL (4.8-10.8)
[2017-07-16 07:09] LABS: REFLEX LACTIC ACID YES OR NO YES
--- NOTE | 2017-07-16 08:26 | Critical Care Progress Note ---
Assessment/Plan Assessment/Plan IMPRESSION sepsis elevated lactic acid respiratory failure ho alcholic liver disease seizure disorder PLAN NGT ventilator management follow up ABG monitor PH and adjust pressors and taper seizure meds IV antibiotics noted ID evaluation guarded feeds d/w daughter Critical Care - Subjective ROS Limited/Unobtainable: Yes Condition: critical EKG Rhythm: Sinus Tachycardia I&O: Intake and Output 07/16/17 07/17/17 19:00 07:00 Output Total 110 ml Balance -110 ml Output Urine Total 110 ml Critical Care - Objective ET-Tube: 7.5 ET Position: 25 Last 24 Hour Vital Signs Date Time Temp Pulse Resp B/P (MAP) Pulse Ox O2 Delivery O2 Flow Rate FiO2 07/16/17 08:00 97.8 117 31 112/79 96 Mechanical Ventilator 45 07/16/17 08:00 112/79 07/16/17 07:54 45 07/16/17 07:16 Mechanical Ventilator 07/16/17 07:16 Mechanical Ventilator 07/16/17 07:00 102/63 07/16/17 06:46 117 30 45 07/16/17 06:45 118 31 102/63 99 Mechanical Ventilator 60 07/16/17 06:42 93/59 07/16/17 06:30 116 30 93/59 100 Mechanical Ventilator 60 07/16/17 06:15 117 30 99/61 100 Mechanical Ventilator 60 07/16/17 06:02 118 92/61 07/16/17 06:00 118 30 97/57 100 Mechanical Ventilator 60 07/16/17 06:00 97/57 07/16/17 05:45 118 30 90/63 100 Mechanical Ventilator 60 07/16/17 05:31 118 34 60 07/16/17 05:30 118 30 102/63 100 Mechanical Ventilator 60 07/16/17 05:15 118 32 102/61 96 Mechanical Ventilator 60 07/16/17 05:00 96/59 07/16/17 05:00 118 30 94/54 97 Mechanical Ventilator 60 07/16/17 04:45 116 30 94/54 97 Mechanical Ventilator 60 07/16/17 04:30 117 30 92/56 97 Mechanical Ventilator 60 07/16/17 04:15 118 30 90/56 96 Mechanical Ventilator 60 07/16/17 04:00 121 07/16/17 04:00 60 07/16/17 04:00 98.2 118 30 89/58 100 Mechanical Ventilator 60 07/16/17 04:00 89/58 07/16/17 03:45 120 31 97/61 91 Mechanical Ventilator 60 07/16/17 03:30 121 32 97/62 94 Mechanical Ventilator 60 07/16/17 03:19 Mechanical Ventilator 07/16/17 03:19 121 30 60 07/16/17 03:18 Mechanical Ventilator 07/16/17 03:15 121 31 97/60 95 Mechanical Ventilator 60 07/16/17 03:12 98/57 07/16/17 03:00 121 31 98/57 95 Mechanical Ventilator 60 07/16/17 03:00 98/51 07/16/17 02:45 122 31 95/59 95 Mechanical Ventilator 60 07/16/17 02:42 122 97/59 07/16/17 02:30 122 30 97/59 95 Mechanical Ventilator 60 07/16/17 02:15 122 32 99/61 100 Mechanical Ventilator 60 07/16/17 02:00 123 31 98/67 96 Mechanical Ventilator 60 07/16/17 02:00 98/67 07/16/17 01:45 124 31 102/64 94 Mechanical Ventilator 60 07/16/17 01:30 124 32 102/64 95 Mechanical Ventilator 60 07/16/17 01:15 125 31 102/66 95 Mechanical Ventilator 60 07/16/17 01:04 124 33 50 07/16/17 01:00 99.0 125 31 99/63 94 Mechanical Ventilator 60 07/16/17 01:00 99/63 07/16/17 00:45 125 28 107/65 94 Mechanical Ventilator 60 07/16/17 00:30 125 33 111/68 94 Mechanical Ventilator 60 07/16/17 00:16 94/56 07/16/17 00:15 124 34 111/69 94 Mechanical Ventilator 60 07/16/17 00:00 123 07/16/17 00:00 60 07/16/17 00:00 94/56 07/16/17 00:00 101.0 123 34 94/56 94 Mechanical Ventilator 60 07/15/17 23:58 101.0 07/15/17 23:45 101.0 124 34 105/63 100 Mechanical Ventilator 50 07/15/17 23:30 123 34 50 07/15/17 23:30 124 34 113/63 100 Mechanical Ventilator 50 07/15/17 23:29 Mechanical Ventilator 50 07/15/17 23:29 50 07/15/17 23:28 Mechanical Ventilator 50 07/15/17 23:15 124 33 109/70 100 Mechanical Ventilator 50 07/15/17 23:00 101.3 123 33 103/68 96 Mechanical Ventilator 50 07/15/17 23:00 103/68 07/15/17 22:45 123 33 92/61 100 Mechanical Ventilator 50 07/15/17 22:42 124 93/62 07/15/17 22:30 124 33 93/62 100 Mechanical Ventilator 50 07/15/17 22:15 124 33 90/57 100 Mechanical Ventilator 50 07/15/17 22:00 124 33 100/66 100 Mechanical Ventilator 50 07/15/17 22:00 100/66 07/15/17 21:45 124 33 100/65 100 Mechanical Ventilator 50 07/15/17 21:30 124 32 79/51 100 Mechanical Ventilator 50 07/15/17 21:18 121 34 50 07/15/17 21:15 122 31 67/32 100 Mechanical Ventilator 50 07/15/17 21:00 123 26 88/59 100 Mechanical Ventilator 50 07/15/17 21:00 88/59 07/15/17 21:00 50 07/15/17 20:45 124 26 84/30 100 Mechanical Ventilator 50 07/15/17 20:30 124 30 98/60 100 Mechanical Ventilator 50 07/15/17 20:15 123 29 94/65 100 Mechanical Ventilator 50 07/15/17 20:00 100.0 123 29 102/62 100 Mechanical Ventilator 50 07/15/17 20:00 50 07/15/17 20:00 102/62 07/15/17 20:00 123 07/15/17 19:45 122 29 105/64 100 Mechanical Ventilator 50 07/15/17 19:30 122 29 98/68 100 Mechanical Ventilator 50 07/15/17 19:15 121 30 104/63 100 Mechanical Ventilator 50 07/15/17 19:11 120 32 100 Mechanical Ventilator 50 07/15/17 19:10 122 31 100 Mechanical Ventilator 50 07/15/17 19:06 118 32 50 07/15/17 19:00 119 31 104/63 100 Mechanical Ventilator 50 07/15/17 19:00 104/63 07/15/17 18:38 117 95/52 07/15/17 18:38 95/62 07/15/17 18:30 116 27 95/62 100 Mechanical Ventilator 50 07/15/17 18:00 117 29 83/55 100 Mechanical Ventilator 50 07/15/17 17:30 117 30 90/59 100 Mechanical Ventilator 50 07/15/17 17:00 89/59 07/15/17 17:00 115 29 89/59 100 Mechanical Ventilator 50 07/15/17 16:55 115 30 50 07/15/17 16:45 114 29 88/59 100 Mechanical Ventilator 50 07/15/17 16:30 115 29 81/55 100 Mechanical Ventilator 50 07/15/17 16:15 96.0 115 28 83/55 100 Mechanical Ventilator 50 07/15/17 16:00 114 07/15/17 16:00 115 26 88/59 100 Mechanical Ventilator 50 07/15/17 16:00 50 07/15/17 16:00 114 07/15/17 15:30 118 26 84/46 100 Mechanical Ventilator 50 07/15/17 15:15 117 27 78/53 100 Mechanical Ventilator 50 07/15/17 15:00 117 27 83/52 100 Mechanical Ventilator 50 07/15/17 14:45 118 29 100 Mechanical Ventilator 50 07/15/17 14:45 117 27 93/62 100 Mechanical Ventilator 50 07/15/17 14:45 119 29 50 07/15/17 14:35 116 88/59 07/15/17 14:34 82/55 07/15/17 14:30 118 29 99 Mechanical Ventilator 50 07/15/17 14:00 117 27 86/57 100 Mechanical Ventilator 50 07/15/17 13:45 117 26 83/57 100 Mechanical Ventilator 50 07/15/17 13:30 117 28 79/58 100 Mechanical Ventilator 50 07/15/17 13:15 117 27 78/48 100 Mechanical Ventilator 50 07/15/17 13:00 99.2 117 27 83/58 100 Mechanical Ventilator 10.0 50 07/15/17 12:48 115 30 50 07/15/17 12:30 116 26 79/48 100 Mechanical Ventilator 10.0 50 07/15/17 12:15 116 26 81/53 100 Mechanical Ventilator 10.0 50 07/15/17 12:00 116 27 77/47 100 Mechanical Ventilator 10.0 50 07/15/17 12:00 118 07/15/17 12:00 50 07/15/17 11:45 121 92/60 07/15/17 11:30 121 28 98/67 100 Mechanical Ventilator 10.0 50 07/15/17 11:15 123 29 86/61 100 Mechanical Ventilator 10.0 50 07/15/17 11:15 92/60 07/15/17 11:10 122 29 50 07/15/17 11:00 121 27 76/50 100 Mechanical Ventilator 10.0 50 07/15/17 10:55 124 26 100 Mechanical Ventilator 50 07/15/17 10:40 122 26 99 Mechanical Ventilator 50 07/15/17 10:30 99.8 126 27 82/54 100 Mechanical Ventilator 10.0 50 07/15/17 10:28 96/54 07/15/17 10:10 99.6 122 28 101/64 100 Mechanical Ventilator 10.0 50 07/15/17 10:10 99.6 122 28 101/64 100 Mechanical Ventilator 10.0 50 07/15/17 10:00 99.6 124 30 92/56 100 Mechanical Ventilator 10.0 50 07/15/17 10:00 99.6 123 28 99/52 100 Mechanical Ventilator 10.0 50 07/15/17 09:50 99.9 121 30 75/51 100 Mechanical Ventilator 10.0 50 07/15/17 09:40 99.9 120 31 99/65 100 Mechanical Ventilator 10.0 50 07/15/17 09:30 99.7 120 27 91/57 100 Mechanical Ventilator 10.0 50 07/15/17 09:20 99.7 120 26 83/59 100 Mechanical Ventilator 10.0 50 07/15/17 09:10 99.5 120 27 87/60 100 Mechanical Ventilator 10.0 50 07/15/17 09:00 99.4 118 26 85/58 100 Mechanical Ventilator 10.0 50 07/15/17 08:50 99.2 118 26 82/57 100 Mechanical Ventilator 10.0 50 07/15/17 08:40 99.7 117 26 85/57 100 Mechanical Ventilator 10.0 50 07/15/17 08:30 99.7 121 26 95/70 100 Mechanical Ventilator 10.0 50 Labs: Labs Test 07/14/17 13:20 07/14/17 13:21 07/14/17 13:37 07/14/17 15:15 White Blood Count 4.0 K/UL (4.8-10.8) Red Blood Count 5.34 M/UL (4.70-6.10) Hemoglobin 16.5 G/DL (14.2-18.0) Hematocrit 51.6 % (42.0-52.0) Mean Corpuscular Volume 97 FL (80-99) Mean Corpuscular Hemoglobin 31.0 PG (27.0-31.0) Mean Corpuscular Hemoglobin Concent 32.1 G/DL (32.0-36.0) Red Cell Distribution Width 12.9 % (11.6-14.8) Platelet Count 221 K/UL (150-450) Mean Platelet Volume 9.5 FL (6.5-10.1) Neutrophils (%) (Auto) 62.4 % (45.0-75.0) Lymphocytes (%) (Auto) 33.6 % (20.0-45.0) Monocytes (%) (Auto) 1.7 % (1.0-10.0) Eosinophils (%) (Auto) 1.0 % (0.0-3.0) Basophils (%) (Auto) 1.3 % (0.0-2.0) Sodium Level 137 MMOL/L (136-145) Potassium Level 3.8 MMOL/L (3.5-5.1) Chloride Level 101 MMOL/L (98-107) Carbon Dioxide Level 21 MMOL/L (21-32) Anion Gap 15 mmol/L (5-15) Blood Urea Nitrogen 16 mg/dL (7-18) Creatinine 2.0 MG/DL (0.55-1.30) Estimat Glomerular Filtration Rate 41.0 mL/min (>60) Glucose Level 175 MG/DL (74-106) Lactic Acid Level 5.80 mmol/L (0.66-2.22) 5.80 mmol/L (0.66-2.22) Calcium Level 9.3 MG/DL (8.5-10.1) Total Bilirubin 0.5 MG/DL (0.2-1.0) Aspartate Amino Transf (AST/SGOT) 23 U/L (15-37) Alanine Aminotransferase (ALT/SGPT) 16 U/L (12-78) Alkaline Phosphatase 164 U/L (46-116) Total Creatine Kinase 103 U/L (26-308) Creatine Kinase MB 4.0 NG/ML (0.0-3.6) Creatine Kinase MB Relative Index 3.8 Troponin I 0.000 ng/mL (0.000-0.056) Total Protein 7.8 G/DL (6.4-8.2) Albumin 3.6 G/DL (3.4-5.0) Globulin 4.2 g/dL Albumin/Globulin Ratio 0.9 (1.0-2.7) Lipase 129 U/L (73-393) Carbamazepine (Tegretol) Level 10.2 ug/mL (4.0-12.0) Arterial Blood pH 7.250 (7.350-7.450) Arterial Blood Partial Pressure CO2 42.3 mmHg (35.0-45.0) Arterial Blood Partial Pressure O2 83.3 mmHg (75.0-100.0) Arterial Blood HCO3 18.4 mmol/L (22.0-26.0) Arterial Blood Oxygen Saturation 94.2 % (92.0-98.0) Arterial Blood Base Excess -8.3 Aston Test Positive Urine Color Yellow Urine Appearance Clear Urine pH 7 (4.5-8.0) Urine Specific [place] 1.010 (1.005-1.035) Urine Protein Negative (NEGATIVE) Urine Glucose (UA) Negative (NEGATIVE) Urine Ketones Negative (NEGATIVE) Urine Occult Blood Negative (NEGATIVE) Urine Nitrite Negative (NEGATIVE) Urine Bilirubin Negative (NEGATIVE) Urine Urobilinogen 1 MG/DL (0.0-1.0) Urine Leukocyte Esterase 1+ (NEGATIVE) Urine RBC 0 /HPF (0 - 0) Urine WBC 0-2 /HPF (0 - 0) Urine Squamous Epithelial Cells Occasional /LPF Urine Bacteria None /HPF (NONE) Urine Opiates Screen Negative (NEGATIVE) Urine Barbiturates Screen Negative (NEGATIVE) Phencyclidine (PCP) Screen Negative (NEGATIVE) Urine Amphetamines Screen Negative (NEGATIVE) Urine Benzodiazepines Screen Negative (NEGATIVE) Urine Cocaine Screen Negative (NEGATIVE) Urine Marijuana (THC) Screen Negative (NEGATIVE) Test 07/14/17 18:06 07/14/17 21:16 07/15/17 01:10 07/15/17 02:45 Arterial Blood pH 7.160 (7.350-7.450) 7.167 (7.350-7.450) 7.242 (7.350-7.450) Arterial Blood Partial Pressure CO2 54.1 mmHg (35.0-45.0) 46.6 mmHg (35.0-45.0) 32.9 mmHg (35.0-45.0) Arterial Blood Partial Pressure O2 67.4 mmHg (75.0-100.0) 51.7 mmHg (75.0-100.0) 110.1 mmHg (75.0-100.0) Arterial Blood HCO3 18.9 mmol/L (22.0-26.0) 16.5 mmol/L (22.0-26.0) 13.8 mmol/L (22.0-26.0) Arterial Blood Oxygen Saturation 88.1 % (92.0-98.0) 79.8 % (92.0-98.0) 97.8 % (92.0-98.0) Arterial Blood Base Excess -10.4 -12.0 -12.3 Aston Test Positive Positive Positive Lactic Acid Level 6.00 mmol/L (0.66-2.22) Test 07/15/17 05:20 07/15/17 07:00 07/15/17 21:45 07/16/17 03:30 White Blood Count 4.8 K/UL (4.8-10.8) 18.8 K/UL (4.8-10.8) Red Blood Count 4.03 M/UL (4.70-6.10) 4.17 M/UL (4.70-6.10) Hemoglobin 12.7 G/DL (14.2-18.0) 13.3 G/DL (14.2-18.0) Hematocrit 39.1 % (42.0-52.0) 39.8 % (42.0-52.0) Mean Corpuscular Volume 97 FL (80-99) 95 FL (80-99) Mean Corpuscular Hemoglobin 31.4 PG (27.0-31.0) 32.0 PG (27.0-31.0) Mean Corpuscular Hemoglobin Concent 32.5 G/DL (32.0-36.0) 33.5 G/DL (32.0-36.0) Red Cell Distribution Width 13.0 % (11.6-14.8) 12.9 % (11.6-14.8) Platelet Count 115 K/UL (150-450) 83 K/UL (150-450) Mean Platelet Volume 13.0 FL (6.5-10.1) 12.0 FL (6.5-10.1) Neutrophils (%) (Auto) % (45.0-75.0) % (45.0-75.0) Lymphocytes (%) (Auto) % (20.0-45.0) % (20.0-45.0) Monocytes (%) (Auto) % (1.0-10.0) % (1.0-10.0) Eosinophils (%) (Auto) % (0.0-3.0) % (0.0-3.0) Basophils (%) (Auto) % (0.0-2.0) % (0.0-2.0) Differential Total Cells Counted 100 Neutrophils % (Manual) 29 % (45-75) Lymphocytes % (Manual) 8 % (20-45) Monocytes % (Manual) 1 % (1-10) Eosinophils % (Manual) 1 % (0-3) Basophils % (Manual) 0 % (0-2) Band Neutrophils 61 % (0-8) Platelet Estimate Decreased Platelet Morphology Normal Red Blood Cell Morphology Normal Sodium Level 141 MMOL/L (136-145) 131 MMOL/L (136-145) Potassium Level 3.7 MMOL/L (3.5-5.1) 4.7 MMOL/L (3.5-5.1) Chloride Level 110 MMOL/L (98-107) 100 MMOL/L (98-107) Carbon Dioxide Level 13 MMOL/L (21-32) 16 MMOL/L (21-32) Anion Gap 18 mmol/L (5-15) 15 mmol/L (5-15) Blood Urea Nitrogen 25 mg/dL (7-18) 32 mg/dL (7-18) Creatinine 2.7 MG/DL (0.55-1.30) 2.8 MG/DL (0.55-1.30) Estimat Glomerular Filtration Rate 29.0 mL/min (>60) 27.8 mL/min (>60) Glucose Level 62 MG/DL (74-106) 60 MG/DL (74-106) Lactic Acid Level 6.00 mmol/L (0.66-2.22) 5.60 mmol/L (0.66-2.22) Calcium Level 7.5 MG/DL (8.5-10.1) 7.2 MG/DL (8.5-10.1) Triglycerides Level 95 MG/DL (30-150) Random Amikacin Level 30.4 MG/L Carbamazepine (Tegretol) Level 4.6 ug/mL (4.0-12.0) Arterial Blood pH 7.280 (7.350-7.450) Arterial Blood Partial Pressure CO2 33.1 mmHg (35.0-45.0) Arterial Blood Partial Pressure O2 80.3 mmHg (75.0-100.0) Arterial Blood HCO3 15.3 mmol/L (22.0-26.0) Arterial Blood Oxygen Saturation 94.6 % (92.0-98.0) Arterial Blood Base Excess -10.2 Aston Test Positive Test 07/16/17 05:50 Lactic Acid Level 4.90 mmol/L (0.66-2.22) Objective: WDWN very ill intubated clear breath sounds bilaterally without rhonchi or wheeze [id number] tachy without MRG NABS nontender no HSM no CC some edema reduced LOC Micro: Microbiology Date/Time Source Procedure Growth Status 07/14/17 13:20 Blood Blood Culture - Preliminary Staphylococcus Species Resulted 07/14/17 13:10 Blood Blood Culture - Preliminary NO GROWTH AFTER 24 HOURS Resulted 07/15/17 17:00 Urine,Clean Catch Urine Culture - Preliminary NO GROWTH Resulted EUSEBIO CRESPO Jul 16, 2017 08:26
[2017-07-16 08:35] LABS: BAND NEUTROPHILS % (MANUAL) 15 % (0-8); BASOPHILS % (MANUAL) 0 % (0-2); EOSINOPHILS % (MANUAL) 0 % (0-3); LYMPHOCYTES % (MANUAL) 6 % (20-45); METAMYELOCYTES % 3 % (0-0); NEUTROPHILS % (MANUAL) 67 % (45-75); PLATELET ESTIMATE DECREASED; PLATELET MORPHOLOGY NORMAL; TOTAL CELLS COUNTED 100
[2017-07-16 09:03] LABS: ABG ALLEN TEST POSITIVE; ABG BASE EXCESS -10.5; ABG PCO2 34.3 mmHg (35.0-45.0)
[2017-07-16] MEDS: D5 1/2NS 1,000 ML IV SCH ×2 (09:27→20:12)
[2017-07-16] MEDS: LaMICtal 150mg tab GT SCH (09:39)
[2017-07-16] MEDS: carBAMazepine 200mg tab GT SCH ×2 (09:40→21:12)
--- NOTE | 2017-07-16 10:54 | Infectious Diseases Prog Note ---
Assessment/Plan Assessment/Plan antibiotics : linezolid, ertapenem A 1. pneumonia 2. respiratory failure 3. thrombocytopenia 4. staph sepsis 5. renal failure 6. HTN P 1. continue linezolid 2. d/c ertapenem 3. start meropenem, flagyl 4. will follow up cultures Subjective ROS Limited/Unobtainable: Yes Allergies: Coded Allergies: CODEINE (Verified Allergy, Unknown, 11/15/16) Objective Vital Signs Last 24 Hour Vital Signs Date Time Temp Pulse Resp B/P (MAP) Pulse Ox O2 Delivery O2 Flow Rate FiO2 07/16/17 10:38 118 31 50 07/16/17 09:54 119 107/70 07/16/17 09:44 118 31 50 07/16/17 09:08 118 32 45 07/16/17 08:00 117 07/16/17 08:00 97.8 117 31 112/79 96 Mechanical Ventilator 45 07/16/17 08:00 112/79 07/16/17 07:54 45 07/16/17 07:16 Mechanical Ventilator 07/16/17 07:16 Mechanical Ventilator 07/16/17 07:00 102/63 07/16/17 06:46 117 30 45 07/16/17 06:45 118 31 102/63 99 Mechanical Ventilator 60 07/16/17 06:42 93/59 07/16/17 06:30 116 30 93/59 100 Mechanical Ventilator 60 07/16/17 06:15 117 30 99/61 100 Mechanical Ventilator 60 07/16/17 06:02 118 92/61 07/16/17 06:00 118 30 97/57 100 Mechanical Ventilator 60 07/16/17 06:00 97/57 07/16/17 05:45 118 30 90/63 100 Mechanical Ventilator 60 07/16/17 05:31 118 34 60 07/16/17 05:30 118 30 102/63 100 Mechanical Ventilator 60 07/16/17 05:15 118 32 102/61 96 Mechanical Ventilator 60 07/16/17 05:00 96/59 07/16/17 05:00 118 30 94/54 97 Mechanical Ventilator 60 07/16/17 04:45 116 30 94/54 97 Mechanical Ventilator 60 07/16/17 04:30 117 30 92/56 97 Mechanical Ventilator 60 07/16/17 04:15 118 30 90/56 96 Mechanical Ventilator 60 07/16/17 04:00 121 07/16/17 04:00 60 07/16/17 04:00 98.2 118 30 89/58 100 Mechanical Ventilator 60 07/16/17 04:00 89/58 07/16/17 03:45 120 31 97/61 91 Mechanical Ventilator 60 07/16/17 03:30 121 32 97/62 94 Mechanical Ventilator 60 07/16/17 03:19 Mechanical Ventilator 07/16/17 03:19 121 30 60 07/16/17 03:18 Mechanical Ventilator 07/16/17 03:15 121 31 97/60 95 Mechanical Ventilator 60 07/16/17 03:12 98/57 07/16/17 03:00 121 31 98/57 95 Mechanical Ventilator 60 07/16/17 03:00 98/51 07/16/17 02:45 122 31 95/59 95 Mechanical Ventilator 60 07/16/17 02:42 122 97/59 07/16/17 02:30 122 30 97/59 95 Mechanical Ventilator 60 07/16/17 02:15 122 32 99/61 100 Mechanical Ventilator 60 07/16/17 02:00 123 31 98/67 96 Mechanical Ventilator 60 07/16/17 02:00 98/67 07/16/17 01:45 124 31 102/64 94 Mechanical Ventilator 60 07/16/17 01:30 124 32 102/64 95 Mechanical Ventilator 60 07/16/17 01:15 125 31 102/66 95 Mechanical Ventilator 60 07/16/17 01:04 124 33 50 07/16/17 01:00 99.0 125 31 99/63 94 Mechanical Ventilator 60 07/16/17 01:00 99/63 07/16/17 00:45 125 28 107/65 94 Mechanical Ventilator 60 07/16/17 00:30 125 33 111/68 94 Mechanical Ventilator 60 07/16/17 00:16 94/56 07/16/17 00:15 124 34 111/69 94 Mechanical Ventilator 60 07/16/17 00:00 123 07/16/17 00:00 60 07/16/17 00:00 94/56 07/16/17 00:00 101.0 123 34 94/56 94 Mechanical Ventilator 60 07/15/17 23:58 101.0 07/15/17 23:45 101.0 124 34 105/63 100 Mechanical Ventilator 50 07/15/17 23:30 123 34 50 07/15/17 23:30 124 34 113/63 100 Mechanical Ventilator 50 07/15/17 23:29 Mechanical Ventilator 50 07/15/17 23:29 50 07/15/17 23:28 Mechanical Ventilator 50 07/15/17 23:15 124 33 109/70 100 Mechanical Ventilator 50 07/15/17 23:00 101.3 123 33 103/68 96 Mechanical Ventilator 50 07/15/17 23:00 103/68 07/15/17 22:45 123 33 92/61 100 Mechanical Ventilator 50 07/15/17 22:42 124 93/62 07/15/17 22:30 124 33 93/62 100 Mechanical Ventilator 50 07/15/17 22:15 124 33 90/57 100 Mechanical Ventilator 50 07/15/17 22:00 124 33 100/66 100 Mechanical Ventilator 50 07/15/17 22:00 100/66 07/15/17 21:45 124 33 100/65 100 Mechanical Ventilator 50 07/15/17 21:30 124 32 79/51 100 Mechanical Ventilator 50 07/15/17 21:18 121 34 50 07/15/17 21:15 122 31 67/32 100 Mechanical Ventilator 50 07/15/17 21:00 123 26 88/59 100 Mechanical Ventilator 50 07/15/17 21:00 88/59 07/15/17 21:00 50 07/15/17 20:45 124 26 84/30 100 Mechanical Ventilator 50 07/15/17 20:30 124 30 98/60 100 Mechanical Ventilator 50 07/15/17 20:15 123 29 94/65 100 Mechanical Ventilator 50 07/15/17 20:00 100.0 123 29 102/62 100 Mechanical Ventilator 50 07/15/17 20:00 50 07/15/17 20:00 102/62 07/15/17 20:00 123 07/15/17 19:45 122 29 105/64 100 Mechanical Ventilator 50 07/15/17 19:30 122 29 98/68 100 Mechanical Ventilator 50 07/15/17 19:15 121 30 104/63 100 Mechanical Ventilator 50 07/15/17 19:11 120 32 100 Mechanical Ventilator 50 07/15/17 19:10 122 31 100 Mechanical Ventilator 50 07/15/17 19:06 118 32 50 07/15/17 19:00 119 31 104/63 100 Mechanical Ventilator 50 07/15/17 19:00 104/63 07/15/17 18:38 117 95/52 07/15/17 18:38 95/62 07/15/17 18:30 116 27 95/62 100 Mechanical Ventilator 50 07/15/17 18:00 117 29 83/55 100 Mechanical Ventilator 50 07/15/17 17:30 117 30 90/59 100 Mechanical Ventilator 50 07/15/17 17:00 89/59 07/15/17 17:00 115 29 89/59 100 Mechanical Ventilator 50 07/15/17 16:55 115 30 50 07/15/17 16:45 114 29 88/59 100 Mechanical Ventilator 50 07/15/17 16:30 115 29 81/55 100 Mechanical Ventilator 50 07/15/17 16:15 96.0 115 28 83/55 100 Mechanical Ventilator 50 07/15/17 16:00 114 07/15/17 16:00 115 26 88/59 100 Mechanical Ventilator 50 07/15/17 16:00 50 07/15/17 16:00 114 07/15/17 15:30 118 26 84/46 100 Mechanical Ventilator 50 07/15/17 15:15 117 27 78/53 100 Mechanical Ventilator 50 07/15/17 15:00 117 27 83/52 100 Mechanical Ventilator 50 07/15/17 14:45 118 29 100 Mechanical Ventilator 50 07/15/17 14:45 117 27 93/62 100 Mechanical Ventilator 50 07/15/17 14:45 119 29 50 07/15/17 14:35 116 88/59 07/15/17 14:34 82/55 07/15/17 14:30 118 29 99 Mechanical Ventilator 50 07/15/17 14:00 117 27 86/57 100 Mechanical Ventilator 50 07/15/17 13:45 117 26 83/57 100 Mechanical Ventilator 50 07/15/17 13:30 117 28 79/58 100 Mechanical Ventilator 50 07/15/17 13:15 117 27 78/48 100 Mechanical Ventilator 50 07/15/17 13:00 99.2 117 27 83/58 100 Mechanical Ventilator 10.0 50 07/15/17 12:48 115 30 50 07/15/17 12:30 116 26 79/48 100 Mechanical Ventilator 10.0 50 07/15/17 12:15 116 26 81/53 100 Mechanical Ventilator 10.0 50 07/15/17 12:00 116 27 77/47 100 Mechanical Ventilator 10.0 50 07/15/17 12:00 118 07/15/17 12:00 50 07/15/17 11:45 121 92/60 07/15/17 11:30 121 28 98/67 100 Mechanical Ventilator 10.0 50 07/15/17 11:15 123 29 86/61 100 Mechanical Ventilator 10.0 50 07/15/17 11:15 92/60 07/15/17 11:10 122 29 50 07/15/17 11:00 121 27 76/50 100 Mechanical Ventilator 10.0 50 07/15/17 10:55 124 26 100 Mechanical Ventilator 50 Height (Feet): 5 Height (Inches): 9.00 Weight (Pounds): 177 Respiratory/Chest: lungs clear Cardiovascular: normal rate, regular rhythm, no gallop/murmur Abdomen: soft, non tender, other - GT Extremities: no edema, other - right IJ Microbiology Date/Time Source Procedure Growth Status 07/14/17 13:20 Blood Blood Culture - Preliminary Staphylococcus Species Resulted 07/14/17 13:10 Blood Blood Culture - Preliminary NO GROWTH AFTER 24 HOURS Resulted 07/15/17 17:00 Urine,Clean Catch Urine Culture - Preliminary NO GROWTH Resulted Laboratory Tests Test 07/15/17 21:45 07/16/17 03:30 07/16/17 05:50 07/16/17 08:56 Lactic Acid Level 5.60 mmol/L (0.66-2.22) H 4.90 mmol/L (0.66-2.22) H White Blood Count 18.8 K/UL (4.8-10.8) #H Red Blood Count 4.17 M/UL (4.70-6.10) L Hemoglobin 13.3 G/DL (14.2-18.0) L Hematocrit 39.8 % (42.0-52.0) L Mean Corpuscular Volume 95 FL (80-99) Mean Corpuscular Hemoglobin 32.0 PG (27.0-31.0) H Mean Corpuscular Hemoglobin Concent 33.5 G/DL (32.0-36.0) Red Cell Distribution Width 12.9 % (11.6-14.8) Platelet Count 83 K/UL (150-450) L Mean Platelet Volume 12.0 FL (6.5-10.1) H Neutrophils (%) (Auto) % (45.0-75.0) Lymphocytes (%) (Auto) % (20.0-45.0) Monocytes (%) (Auto) % (1.0-10.0) Eosinophils (%) (Auto) % (0.0-3.0) Basophils (%) (Auto) % (0.0-2.0) Differential Total Cells Counted 100 Neutrophils % (Manual) 67 % (45-75) Lymphocytes % (Manual) 6 % (20-45) L Monocytes % (Manual) 9 % (1-10) Eosinophils % (Manual) 0 % (0-3) Basophils % (Manual) 0 % (0-2) Metamyelocytes % 3 % (0-0) H Band Neutrophils 15 % (0-8) H Platelet Estimate Decreased L Platelet Morphology Normal Sodium Level 131 MMOL/L (136-145) #L Potassium Level 4.7 MMOL/L (3.5-5.1) Chloride Level 100 MMOL/L (98-107) Carbon Dioxide Level 16 MMOL/L (21-32) L Anion Gap 15 mmol/L (5-15) Blood Urea Nitrogen 32 mg/dL (7-18) H Creatinine 2.8 MG/DL (0.55-1.30) H Estimat Glomerular Filtration Rate 27.8 mL/min (>60) Glucose Level 60 MG/DL (74-106) L Calcium Level 7.2 MG/DL (8.5-10.1) L Arterial Blood pH 7.272 (7.350-7.450) Arterial Blood Partial Pressure CO2 34.3 mmHg (35.0-45.0) L Arterial Blood Partial Pressure O2 64.1 mmHg (75.0-100.0) L Arterial Blood HCO3 15.5 mmol/L (22.0-26.0) L Arterial Blood Oxygen Saturation 90.2 % (92.0-98.0) L Arterial Blood Base Excess -10.5 Aston Test Positive NIKOLAY HANNA Jul 16, 2017 10:54
[2017-07-16] MEDS: Meropenem 1 GM in NS 55 ML IVPB SCH ×2 (12:08→21:11)
[2017-07-16] MEDS: Sodium Citrate 30ml ORAL SCH ×3 (12:08→23:40)
[2017-07-16] MEDS: metroNIDAZOLE 250mg tab GT SCH ×2 (12:08→21:55)
[2017-07-16] MEDS ORDERED: Xarelto 15mg tab GT SCH (16:30)
[2017-07-16 20:02] LABS: REFLEX LACTIC ACID YES OR NO YES
[2017-07-16] MEDS: Dyna-Hex 2% Top Sol 2oz TOPIC SCH (20:12)
[2017-07-16] MEDS: levETIRAcetam 500mg/5ml Liquid GT SCH (21:12)
[2017-07-17] VITALS (85 sets, daily range): BP systolic 87–133; BP diastolic 53–84
[2017-07-17] MEDS: Phenylephrine 50 MG in D5W 245 ML IV SCH ×6 (01:34→20:29)
[2017-07-17] MEDS: Albuterol ud Inhalation HHN SCH ×6 (03:05→23:24)
[2017-07-17] MEDS: D5 1/2NS 1,000 ML IV SCH (04:50)
[2017-07-17 05:37] LABS: ANION GAP 13 mmol/L (5-15); CALCIUM 7.1 MG/DL (8.5-10.1); CARBON DIOXIDE 17 MMOL/L (21-32); CHLORIDE 96 MMOL/L (98-107); CREATININE 2.5 MG/DL (0.55-1.30); GLOMERULAR FILTRATION RATE 31.6 mL/min (>60); POTASSIUM 3.9 MMOL/L (3.5-5.1); SODIUM 126 MMOL/L (136-145)
[2017-07-17 05:44] LABS: MEAN CORPUSCULAR HEMOGLOBIN 31.9 PG (27.0-31.0); MEAN CORPUSCULAR HGB CONC 33.7 G/DL (32.0-36.0); MEAN CORPUSCULAR VOLUME 95 FL (80-99); MEAN PLATELET VOLUME 10.4 FL (6.5-10.1); PLATELET COUNT 60 K/UL (150-450); RED BLOOD COUNT 3.75 M/UL (4.70-6.10); RED CELL DISTRIBUTION WIDTH 13.1 % (11.6-14.8)
[2017-07-17] MEDS: Sodium Citrate 30ml ORAL SCH ×3 (05:48→18:00)
[2017-07-17] MEDS: metroNIDAZOLE 250mg tab GT SCH ×3 (05:48→22:19)
[2017-07-17 06:29] LABS: REFLEX LACTIC ACID YES OR NO YES
--- NOTE | 2017-07-17 07:45 | Critical Care Progress Note ---
Assessment/Plan Assessment/Plan IMPRESSION sepsis elevated lactic acid respiratory failure ho alcholic liver disease seizure disorder acute renal failure possible GIB coffee ground emesis MRSA sepsis PLAN NGT ventilator management follow up ABG monitor PH and adjust pressors and taper seizure meds IV antibiotics noted ID evaluation guarded feeds on hold d/w daughter Critical Care - Subjective Interval Events: remains poorly responsive family updated ROS Limited/Unobtainable: Yes Condition: critical EKG Rhythm: Sinus Tachycardia Critical Care - Objective ET-Tube: 7.5 ET Position: 23 Last 24 Hour Vital Signs Date Time Temp Pulse Resp B/P (MAP) Pulse Ox O2 Delivery O2 Flow Rate FiO2 07/17/17 07:10 106 32 100 Mechanical Ventilator 50 07/17/17 06:55 100 31 50 07/17/17 06:52 100 33 96 Mechanical Ventilator 50 07/17/17 06:52 50 07/17/17 06:45 105 30 105/71 98 Mechanical Ventilator 50 07/17/17 06:30 105 30 111/70 98 Mechanical Ventilator 50 07/17/17 06:15 104 30 101/64 98 Mechanical Ventilator 50 07/17/17 06:00 104 30 110/74 98 Mechanical Ventilator 50 07/17/17 05:45 105 30 111/70 98 Mechanical Ventilator 50 07/17/17 05:30 106 30 103/73 98 Mechanical Ventilator 50 07/17/17 05:15 105 30 111/53 98 Mechanical Ventilator 50 07/17/17 05:03 102 30 50 07/17/17 05:00 106 30 104/71 98 Mechanical Ventilator 50 07/17/17 05:00 30 07/17/17 05:00 104/71 07/17/17 04:50 100 104/68 07/17/17 04:49 104/68 07/17/17 04:45 105 30 108/75 99 Mechanical Ventilator 50 07/17/17 04:30 105 29 95/61 100 Mechanical Ventilator 50 07/17/17 04:15 108 28 100/65 100 Mechanical Ventilator 50 07/17/17 04:00 98.0 110 30 105/60 100 Mechanical Ventilator 50 07/17/17 04:00 30 07/17/17 04:00 100/65 07/17/17 04:00 50 07/17/17 04:00 113 07/17/17 03:45 110 30 105/60 100 Mechanical Ventilator 50 07/17/17 03:30 106 32 105/60 100 Mechanical Ventilator 50 07/17/17 03:15 97 32 105/60 100 Mechanical Ventilator 50 07/17/17 03:12 102 32 100 Mechanical Ventilator 50 07/17/17 03:07 98 33 50 07/17/17 03:06 50 07/17/17 03:05 98 33 100 Mechanical Ventilator 50 07/17/17 03:00 101 31 88/65 100 Mechanical Ventilator 50 07/17/17 03:00 30 07/17/17 03:00 88/65 07/17/17 02:45 101 32 97/64 100 Mechanical Ventilator 50 07/17/17 02:30 105 33 104/66 99 Mechanical Ventilator 50 07/17/17 02:15 101 31 100/68 100 Mechanical Ventilator 50 07/17/17 02:00 102 30 99/67 100 Mechanical Ventilator 50 07/17/17 02:00 30 07/17/17 02:00 99/68 07/17/17 01:45 104 31 99/68 100 Mechanical Ventilator 50 07/17/17 01:34 104 100/65 07/17/17 01:30 104 32 98/61 100 Mechanical Ventilator 50 07/17/17 01:19 105 36 50 07/17/17 01:15 105 32 100/65 99 Mechanical Ventilator 50 07/17/17 01:00 30 07/17/17 01:00 100/65 07/17/17 01:00 103 31 100/65 100 Mechanical Ventilator 50 07/17/17 00:45 106 32 107/65 98 Mechanical Ventilator 50 07/17/17 00:30 104 31 89/64 99 Mechanical Ventilator 50 07/17/17 00:15 106 33 105/70 97 Mechanical Ventilator 50 07/17/17 00:00 104 07/17/17 00:00 99.0 103 29 100/64 100 Mechanical Ventilator 50 07/17/17 00:00 30 07/17/17 00:00 100/64 07/16/17 23:45 102 28 100/63 100 Mechanical Ventilator 50 07/16/17 23:30 102 28 114/77 100 Mechanical Ventilator 50 07/16/17 23:15 101 28 105/68 100 Mechanical Ventilator 50 07/16/17 23:10 50 07/16/17 23:10 104 31 100 Mechanical Ventilator 50 07/16/17 23:09 108 22 100 Mechanical Ventilator 07/16/17 23:00 101 28 108/68 100 Mechanical Ventilator 50 07/16/17 23:00 30 07/16/17 23:00 108/68 07/16/17 22:45 100 29 111/71 100 Mechanical Ventilator 50 07/16/17 22:38 102 37 50 07/16/17 22:30 102 28 114/77 100 Mechanical Ventilator 50 07/16/17 22:15 101 29 99/69 100 Mechanical Ventilator 50 07/16/17 22:00 30 07/16/17 22:00 112/70 07/16/17 22:00 101 29 112/70 100 Mechanical Ventilator 50 07/16/17 22:00 50 07/16/17 21:45 101 28 102/58 100 Mechanical Ventilator 50 07/16/17 21:45 100 92/48 07/16/17 21:45 92/48 07/16/17 21:30 100 30 91/59 100 Mechanical Ventilator 50 07/16/17 21:15 104 28 92/48 96 Mechanical Ventilator 50 07/16/17 21:00 106 28 108/67 100 Mechanical Ventilator 50 07/16/17 21:00 50 07/16/17 21:00 30 07/16/17 21:00 108/67 07/16/17 20:46 98 32 50 07/16/17 20:45 106 28 112/68 94 Mechanical Ventilator 50 07/16/17 20:42 30 07/16/17 20:30 102 31 111/69 98 Mechanical Ventilator 50 07/16/17 20:15 103 30 101/66 99 Mechanical Ventilator 50 07/16/17 20:00 50 07/16/17 20:00 106 07/16/17 20:00 98.0 105 30 101/64 95 Mechanical Ventilator 50 07/16/17 20:00 101/64 07/16/17 19:45 111 30 99/61 95 Mechanical Ventilator 50 07/16/17 19:30 107 31 111/67 99 Mechanical Ventilator 50 07/16/17 19:15 106 31 108/68 100 Mechanical Ventilator 50 07/16/17 19:11 105 33 100 Mechanical Ventilator 50 07/16/17 19:06 105 28 50 07/16/17 19:05 50 07/16/17 19:04 108 40 99 Mechanical Ventilator 50 07/16/17 19:00 111/79 07/16/17 19:00 107 29 102/67 98 Mechanical Ventilator 50 07/16/17 18:45 104 34 107/69 100 Mechanical Ventilator 50 07/16/17 18:30 101 35 114/78 100 Mechanical Ventilator 50 07/16/17 18:15 103 35 105/64 100 Mechanical Ventilator 50 17 18:00 103 34 98/66 98 Mechanical Ventilator 50 17 17:45 106 32 98/66 99 Mechanical Ventilator 50 07/16/17 17:30 107 31 102/63 98 Mechanical Ventilator 50 07/16/17 17:26 107 94/62 07/16/17 17:15 107 31 50 07/16/17 17:15 110 32 94/62 99 Mechanical Ventilator 50 07/16/17 17:00 112 32 92/60 98 Mechanical Ventilator 50 07/16/17 16:45 114 31 93/61 93 Mechanical Ventilator 50 07/16/17 16:30 107 31 106/65 98 Mechanical Ventilator 50 07/16/17 16:15 107 31 97/63 99 Mechanical Ventilator 50 07/16/17 16:06 111/66 07/16/17 16:00 108 07/16/17 16:00 98.8 108 31 111/66 99 Mechanical Ventilator 50 07/16/17 16:00 50 07/16/17 15:45 108 31 102/66 99 Mechanical Ventilator 50 07/16/17 15:30 108 32 101/64 100 Mechanical Ventilator 50 07/16/17 15:23 Mechanical Ventilator 07/16/17 15:23 108 27 100 Mechanical Ventilator 07/16/17 15:22 108 29 50 07/16/17 15:15 110 30 100/65 99 Mechanical Ventilator 50 07/16/17 15:00 112 32 93/59 97 Mechanical Ventilator 50 07/16/17 14:45 109 31 93/58 99 Mechanical Ventilator 50 07/16/17 14:30 110 31 95/59 100 Mechanical Ventilator 50 07/16/17 14:15 110 31 94/58 100 Mechanical Ventilator 50 07/16/17 13:45 115 32 100/65 100 Mechanical Ventilator 50 07/16/17 13:41 115 31 50 07/16/17 13:34 115 103/61 07/16/17 13:30 115 33 94/63 100 Mechanical Ventilator 50 07/16/17 13:15 116 32 103/61 99 Mechanical Ventilator 50 07/16/17 13:00 117 32 99/61 99 Mechanical Ventilator 50 07/16/17 12:45 117 32 102/57 99 Mechanical Ventilator 50 07/16/17 12:30 118 31 103/59 99 Mechanical Ventilator 50 07/16/17 12:15 117 31 104/61 98 Mechanical Ventilator 50 07/16/17 12:00 50 07/16/17 12:00 117 07/16/17 12:00 98.7 117 31 103/60 99 Mechanical Ventilator 50 07/16/17 11:18 Mechanical Ventilator 07/16/17 11:18 Mechanical Ventilator 07/16/17 11:15 31 07/16/17 11:01 108/64 07/16/17 11:00 117 30 99/63 98 Mechanical Ventilator 50 07/16/17 10:45 118 31 108/64 98 Mechanical Ventilator 50 07/16/17 10:38 118 31 50 07/16/17 10:30 118 31 100/65 98 Mechanical Ventilator 50 07/16/17 10:15 118 31 102/63 98 Mechanical Ventilator 50 07/16/17 10:00 119 31 103/64 97 Mechanical Ventilator 50 07/16/17 09:54 119 107/70 07/16/17 09:45 119 31 107/70 97 Mechanical Ventilator 45 07/16/17 09:44 118 31 50 07/16/17 09:30 118 32 98/60 98 Mechanical Ventilator 45 07/16/17 09:15 116 31 100/63 99 Mechanical Ventilator 45 07/16/17 09:08 118 32 45 07/16/17 09:00 118 32 101/61 100 Mechanical Ventilator 45 07/16/17 08:45 117 32 105/60 98 Mechanical Ventilator 45 07/16/17 08:30 117 33 101/69 98 Mechanical Ventilator 45 07/16/17 08:15 117 32 96/62 97 Mechanical Ventilator 45 07/16/17 08:00 117 07/16/17 08:00 97.8 117 31 112/79 96 Mechanical Ventilator 45 07/16/17 08:00 112/79 07/16/17 07:54 45 07/16/17 07:45 117 32 98/60 97 Mechanical Ventilator 45 Labs: Labs Test 07/14/17 13:20 07/14/17 13:21 07/14/17 13:37 07/14/17 15:15 White Blood Count 4.0 K/UL (4.8-10.8) Red Blood Count 5.34 M/UL (4.70-6.10) Hemoglobin 16.5 G/DL (14.2-18.0) Hematocrit 51.6 % (42.0-52.0) Mean Corpuscular Volume 97 FL (80-99) Mean Corpuscular Hemoglobin 31.0 PG (27.0-31.0) Mean Corpuscular Hemoglobin Concent 32.1 G/DL (32.0-36.0) Red Cell Distribution Width 12.9 % (11.6-14.8) Platelet Count 221 K/UL (150-450) Mean Platelet Volume 9.5 FL (6.5-10.1) Neutrophils (%) (Auto) 62.4 % (45.0-75.0) Lymphocytes (%) (Auto) 33.6 % (20.0-45.0) Monocytes (%) (Auto) 1.7 % (1.0-10.0) Eosinophils (%) (Auto) 1.0 % (0.0-3.0) Basophils (%) (Auto) 1.3 % (0.0-2.0) Sodium Level 137 MMOL/L (136-145) Potassium Level 3.8 MMOL/L (3.5-5.1) Chloride Level 101 MMOL/L (98-107) Carbon Dioxide Level 21 MMOL/L (21-32) Anion Gap 15 mmol/L (5-15) Blood Urea Nitrogen 16 mg/dL (7-18) Creatinine 2.0 MG/DL (0.55-1.30) Estimat Glomerular Filtration Rate 41.0 mL/min (>60) Glucose Level 175 MG/DL (74-106) Lactic Acid Level 5.80 mmol/L (0.66-2.22) 5.80 mmol/L (0.66-2.22) Calcium Level 9.3 MG/DL (8.5-10.1) Total Bilirubin 0.5 MG/DL (0.2-1.0) Aspartate Amino Transf (AST/SGOT) 23 U/L (15-37) Alanine Aminotransferase (ALT/SGPT) 16 U/L (12-78) Alkaline Phosphatase 164 U/L (46-116) Total Creatine Kinase 103 U/L (26-308) Creatine Kinase MB 4.0 NG/ML (0.0-3.6) Creatine Kinase MB Relative Index 3.8 Troponin I 0.000 ng/mL (0.000-0.056) Total Protein 7.8 G/DL (6.4-8.2) Albumin 3.6 G/DL (3.4-5.0) Globulin 4.2 g/dL Albumin/Globulin Ratio 0.9 (1.0-2.7) Lipase 129 U/L (73-393) Carbamazepine (Tegretol) Level 10.2 ug/mL (4.0-12.0) Arterial Blood pH 7.250 (7.350-7.450) Arterial Blood Partial Pressure CO2 42.3 mmHg (35.0-45.0) Arterial Blood Partial Pressure O2 83.3 mmHg (75.0-100.0) Arterial Blood HCO3 18.4 mmol/L (22.0-26.0) Arterial Blood Oxygen Saturation 94.2 % (92.0-98.0) Arterial Blood Base Excess -8.3 Aston Test Positive Urine Color Yellow Urine Appearance Clear Urine pH 7 (4.5-8.0) Urine Specific [place] 1.010 (1.005-1.035) Urine Protein Negative (NEGATIVE) Urine Glucose (UA) Negative (NEGATIVE) Urine Ketones Negative (NEGATIVE) Urine Occult Blood Negative (NEGATIVE) Urine Nitrite Negative (NEGATIVE) Urine Bilirubin Negative (NEGATIVE) Urine Urobilinogen 1 MG/DL (0.0-1.0) Urine Leukocyte Esterase 1+ (NEGATIVE) Urine RBC 0 /HPF (0 - 0) Urine WBC 0-2 /HPF (0 - 0) Urine Squamous Epithelial Cells Occasional /LPF Urine Bacteria None /HPF (NONE) Urine Opiates Screen Negative (NEGATIVE) Urine Barbiturates Screen Negative (NEGATIVE) Phencyclidine (PCP) Screen Negative (NEGATIVE) Urine Amphetamines Screen Negative (NEGATIVE) Urine Benzodiazepines Screen Negative (NEGATIVE) Urine Cocaine Screen Negative (NEGATIVE) Urine Marijuana (THC) Screen Negative (NEGATIVE) Test 07/14/17 18:06 07/14/17 21:16 07/15/17 01:10 07/15/17 02:45 Arterial Blood pH 7.160 (7.350-7.450) 7.167 (7.350-7.450) 7.242 (7.350-7.450) Arterial Blood Partial Pressure CO2 54.1 mmHg (35.0-45.0) 46.6 mmHg (35.0-45.0) 32.9 mmHg (35.0-45.0) Arterial Blood Partial Pressure O2 67.4 mmHg (75.0-100.0) 51.7 mmHg (75.0-100.0) 110.1 mmHg (75.0-100.0) Arterial Blood HCO3 18.9 mmol/L (22.0-26.0) 16.5 mmol/L (22.0-26.0) 13.8 mmol/L (22.0-26.0) Arterial Blood Oxygen Saturation 88.1 % (92.0-98.0) 79.8 % (92.0-98.0) 97.8 % (92.0-98.0) Arterial Blood Base Excess -10.4 -12.0 -12.3 Aston Test Positive Positive Positive Lactic Acid Level 6.00 mmol/L (0.66-2.22) Test 07/15/17 05:20 07/15/17 07:00 07/15/17 21:45 07/16/17 03:30 White Blood Count 4.8 K/UL (4.8-10.8) 18.8 K/UL (4.8-10.8) Red Blood Count 4.03 M/UL (4.70-6.10) 4.17 M/UL (4.70-6.10) Hemoglobin 12.7 G/DL (14.2-18.0) 13.3 G/DL (14.2-18.0) Hematocrit 39.1 % (42.0-52.0) 39.8 % (42.0-52.0) Mean Corpuscular Volume 97 FL (80-99) 95 FL (80-99) Mean Corpuscular Hemoglobin 31.4 PG (27.0-31.0) 32.0 PG (27.0-31.0) Mean Corpuscular Hemoglobin Concent 32.5 G/DL (32.0-36.0) 33.5 G/DL (32.0-36.0) Red Cell Distribution Width 13.0 % (11.6-14.8) 12.9 % (11.6-14.8) Platelet Count 115 K/UL (150-450) 83 K/UL (150-450) Mean Platelet Volume 13.0 FL (6.5-10.1) 12.0 FL (6.5-10.1) Neutrophils (%) (Auto) % (45.0-75.0) % (45.0-75.0) Lymphocytes (%) (Auto) % (20.0-45.0) % (20.0-45.0) Monocytes (%) (Auto) % (1.0-10.0) % (1.0-10.0) Eosinophils (%) (Auto) % (0.0-3.0) % (0.0-3.0) Basophils (%) (Auto) % (0.0-2.0) % (0.0-2.0) Differential Total Cells Counted 100 100 Neutrophils % (Manual) 29 % (45-75) 67 % (45-75) Lymphocytes % (Manual) 8 % (20-45) 6 % (20-45) Monocytes % (Manual) 1 % (1-10) 9 % (1-10) Eosinophils % (Manual) 1 % (0-3) 0 % (0-3) Basophils % (Manual) 0 % (0-2) 0 % (0-2) Band Neutrophils 61 % (0-8) 15 % (0-8) Platelet Estimate Decreased Decreased Platelet Morphology Normal Normal Red Blood Cell Morphology Normal Sodium Level 141 MMOL/L (136-145) 131 MMOL/L (136-145) Potassium Level 3.7 MMOL/L (3.5-5.1) 4.7 MMOL/L (3.5-5.1) Chloride Level 110 MMOL/L (98-107) 100 MMOL/L (98-107) Carbon Dioxide Level 13 MMOL/L (21-32) 16 MMOL/L (21-32) Anion Gap 18 mmol/L (5-15) 15 mmol/L (5-15) Blood Urea Nitrogen 25 mg/dL (7-18) 32 mg/dL (7-18) Creatinine 2.7 MG/DL (0.55-1.30) 2.8 MG/DL (0.55-1.30) Estimat Glomerular Filtration Rate 29.0 mL/min (>60) 27.8 mL/min (>60) Glucose Level 62 MG/DL (74-106) 60 MG/DL (74-106) Lactic Acid Level 6.00 mmol/L (0.66-2.22) 5.60 mmol/L (0.66-2.22) Calcium Level 7.5 MG/DL (8.5-10.1) 7.2 MG/DL (8.5-10.1) Triglycerides Level 95 MG/DL (30-150) Random Amikacin Level 30.4 MG/L Carbamazepine (Tegretol) Level 4.6 ug/mL (4.0-12.0) Arterial Blood pH 7.280 (7.350-7.450) Arterial Blood Partial Pressure CO2 33.1 mmHg (35.0-45.0) Arterial Blood Partial Pressure O2 80.3 mmHg (75.0-100.0) Arterial Blood HCO3 15.3 mmol/L (22.0-26.0) Arterial Blood Oxygen Saturation 94.6 % (92.0-98.0) Arterial Blood Base Excess -10.2 Aston Test Positive Metamyelocytes % 3 % (0-0) Test 07/16/17 05:50 07/16/17 08:56 07/16/17 10:50 07/16/17 19:15 Lactic Acid Level 4.90 mmol/L (0.66-2.22) 5.20 mmol/L (0.66-2.22) 4.30 mmol/L (0.66-2.22) Arterial Blood pH 7.272 (7.350-7.450) Arterial Blood Partial Pressure CO2 34.3 mmHg (35.0-45.0) Arterial Blood Partial Pressure O2 64.1 mmHg (75.0-100.0) Arterial Blood HCO3 15.5 mmol/L (22.0-26.0) Arterial Blood Oxygen Saturation 90.2 % (92.0-98.0) Arterial Blood Base Excess -10.5 Aston Test Positive Test 07/17/17 05:00 White Blood Count 22.0 K/UL (4.8-10.8) Red Blood Count 3.75 M/UL (4.70-6.10) Hemoglobin 12.0 G/DL (14.2-18.0) Hematocrit 35.6 % (42.0-52.0) Mean Corpuscular Volume 95 FL (80-99) Mean Corpuscular Hemoglobin 31.9 PG (27.0-31.0) Mean Corpuscular Hemoglobin Concent 33.7 G/DL (32.0-36.0) Red Cell Distribution Width 13.1 % (11.6-14.8) Platelet Count 60 K/UL (150-450) Mean Platelet Volume 10.4 FL (6.5-10.1) Neutrophils (%) (Auto) % (45.0-75.0) Lymphocytes (%) (Auto) % (20.0-45.0) Monocytes (%) (Auto) % (1.0-10.0) Eosinophils (%) (Auto) % (0.0-3.0) Basophils (%) (Auto) % (0.0-2.0) Sodium Level 126 MMOL/L (136-145) Potassium Level 3.9 MMOL/L (3.5-5.1) Chloride Level 96 MMOL/L (98-107) Carbon Dioxide Level 17 MMOL/L (21-32) Anion Gap 13 mmol/L (5-15) Blood Urea Nitrogen 33 mg/dL (7-18) Creatinine 2.5 MG/DL (0.55-1.30) Estimat Glomerular Filtration Rate 31.6 mL/min (>60) Glucose Level 99 MG/DL (74-106) Lactic Acid Level 4.50 mmol/L (0.66-2.22) Calcium Level 7.1 MG/DL (8.5-10.1) Objective: WDWN very ill intubated clear breath sounds bilaterally without rhonchi or wheeze [id number] tachy without MRG NABS nontender no HSM no CC some edema reduced LOC Micro: Microbiology Date/Time Source Procedure Growth Status 07/14/17 13:20 Blood Blood Culture - Final Staphylococcus Aureus - Mrsa Complete 07/14/17 13:10 Blood Blood Culture - Preliminary NO GROWTH AFTER 48 HOURS Resulted 07/15/17 17:00 Sputum Gram Stain - Final Resulted 07/15/17 17:00 Sputum Sputum Culture Pending Resulted 07/15/17 17:00 Urine,Clean Catch Urine Culture - Preliminary NO GROWTH AFTER 24 HOURS Resulted EUSEBIO CRESPO Jul 17, 2017 07:45
[2017-07-17 07:54] LABS: BAND NEUTROPHILS % (MANUAL) 19 % (0-8); BASOPHILS % (MANUAL) 0 % (0-2); EOSINOPHILS % (MANUAL) 0 % (0-3); LYMPHOCYTES % (MANUAL) 3 % (20-45); NEUTROPHILS % (MANUAL) 75 % (45-75); PLATELET ESTIMATE DECREASED; PLATELET MORPHOLOGY NORMAL; TOTAL CELLS COUNTED 100
[2017-07-17 08:53] LABS: REFLEX LACTIC ACID YES OR NO YES
[2017-07-17] MEDS: carBAMazepine 200mg tab GT SCH ×2 (09:15→21:06)
[2017-07-17] MEDS: levETIRAcetam 500mg/5ml Liquid GT SCH ×2 (09:42→21:05)
[2017-07-17] MEDS: Meropenem 1 GM in NS 55 ML IVPB SCH ×2 (09:44→21:05)
[2017-07-17] MEDS: LaMICtal 150mg tab GT SCH (09:51)
[2017-07-17 10:04] LABS: ABG ALLEN TEST POSITIVE; ABG BASE EXCESS -7.1; ABG PCO2 34.8 mmHg (35.0-45.0)
[2017-07-17] MEDS: D5NS 1,000 ML IV SCH ×2 (10:08→19:57)
[2017-07-17] MEDS ORDERED: Tubing IV Secondary IV ONE (11:00)
[2017-07-17] MEDS ORDERED: D5 1/2NS 1000ml IV ONE (11:00)
[2017-07-17] MEDS ORDERED: 1/2 NS 1000ml IV ONE (11:00)
--- NOTE | 2017-07-17 12:42 | Infectious Diseases Prog Note ---
Assessment/Plan Assessment/Plan antibiotics : linezolid, meropenem, fflagyl A 1. pneumonia 2. respiratory failure 3. thrombocytopenia 4. MRSA sepsis 5. renal failure improving 6. HTN 7. leucocytosis P 1. continue linezolid, meropenem, flagyl 2. 2 d echo 3. will follow up cultures Subjective ROS Limited/Unobtainable: Yes Allergies: Coded Allergies: CODEINE (Verified Allergy, Unknown, 11/15/16) Objective Vital Signs Last 24 Hour Vital Signs Date Time Temp Pulse Resp B/P (MAP) Pulse Ox O2 Delivery O2 Flow Rate FiO2 07/17/17 12:37 110 111/76 07/17/17 12:04 106 28 100 Endotracheal Tube 50.0 50 07/17/17 12:00 50 07/17/17 12:00 108 07/17/17 11:55 107 33 100 Mechanical Ventilator 50 07/17/17 11:54 107 36 100 Mechanical Ventilator 50 07/17/17 11:51 106 30 50 07/17/17 11:45 105 30 112/76 100 Mechanical Ventilator 50 07/17/17 11:30 105 30 111/65 100 Mechanical Ventilator 50 07/17/17 11:15 105 31 113/71 100 Mechanical Ventilator 50 07/17/17 11:00 103 31 113/71 100 Mechanical Ventilator 50 07/17/17 10:45 103 30 113/76 100 Mechanical Ventilator 50 07/17/17 10:30 103 29 108/78 100 Mechanical Ventilator 50 07/17/17 10:15 103 30 112/74 100 Mechanical Ventilator 50 07/17/17 10:00 103 30 112/74 100 Mechanical Ventilator 50 07/17/17 09:45 103 30 113/76 100 Mechanical Ventilator 50 07/17/17 09:30 103 29 108/78 100 Mechanical Ventilator 50 07/17/17 09:15 103 30 112/74 100 Mechanical Ventilator 50 07/17/17 09:00 103 30 107/74 100 Mechanical Ventilator 50 07/17/17 08:48 103 102/72 07/17/17 08:48 102/72 07/17/17 08:45 103 30 95/62 100 Mechanical Ventilator 50 07/17/17 08:32 102 32 50 07/17/17 08:30 103 31 102/72 100 Mechanical Ventilator 50 07/17/17 08:15 103 30 102/70 100 Mechanical Ventilator 50 07/17/17 08:00 108 07/17/17 08:00 98.7 108 32 /65 100 Mechanical Ventilator 50 07/17/17 08:00 50 07/17/17 07:45 105 29 108/75 100 Mechanical Ventilator 50 07/17/17 07:30 105 30 109/73 99 Mechanical Ventilator 50 07/17/17 07:15 104 31 111/75 96 Mechanical Ventilator 50 07/17/17 07:10 106 32 100 Mechanical Ventilator 50 07/17/17 07:00 104 31 128/84 100 Mechanical Ventilator 50 07/17/17 06:55 100 31 50 07/17/17 06:52 100 33 96 Mechanical Ventilator 50 07/17/17 06:52 50 07/17/17 06:45 105 30 105/71 98 Mechanical Ventilator 50 07/17/17 06:30 105 30 111/70 98 Mechanical Ventilator 50 07/17/17 06:15 104 30 101/64 98 Mechanical Ventilator 50 07/17/17 06:00 104 30 110/74 98 Mechanical Ventilator 50 07/17/17 05:45 105 30 111/70 98 Mechanical Ventilator 50 07/17/17 05:30 106 30 103/73 98 Mechanical Ventilator 50 07/17/17 05:15 105 30 111/53 98 Mechanical Ventilator 50 07/17/17 05:03 102 30 50 07/17/17 05:00 106 30 104/71 98 Mechanical Ventilator 50 07/17/17 05:00 30 07/17/17 05:00 104/71 07/17/17 04:50 100 104/68 07/17/17 04:49 104/68 07/17/17 04:45 105 30 108/75 99 Mechanical Ventilator 50 07/17/17 04:30 105 29 95/61 100 Mechanical Ventilator 50 07/17/17 04:15 108 28 100/65 100 Mechanical Ventilator 50 07/17/17 04:00 98.0 110 30 105/60 100 Mechanical Ventilator 50 07/17/17 04:00 30 07/17/17 04:00 100/65 07/17/17 04:00 50 07/17/17 04:00 113 07/17/17 03:45 110 30 105/60 100 Mechanical Ventilator 50 07/17/17 03:30 106 32 105/60 100 Mechanical Ventilator 50 07/17/17 03:15 97 32 105/60 100 Mechanical Ventilator 50 12/6/17 03:12 102 32 100 Mechanical Ventilator 50 07/17/17 03:07 98 33 50 07/17/17 03:06 50 07/17/17 03:05 98 33 100 Mechanical Ventilator 50 07/17/17 03:00 101 31 88/65 100 Mechanical Ventilator 50 07/17/17 03:00 30 07/17/17 03:00 88/65 07/17/17 02:45 101 32 97/64 100 Mechanical Ventilator 50 07/17/17 02:30 105 33 104/66 99 Mechanical Ventilator 50 07/17/17 02:15 101 31 100/68 100 Mechanical Ventilator 50 07/17/17 02:00 102 30 99/67 100 Mechanical Ventilator 50 07/17/17 02:00 30 07/17/17 02:00 99/68 07/17/17 01:45 104 31 99/68 100 Mechanical Ventilator 50 07/17/17 01:34 104 100/65 07/17/17 01:30 104 32 98/61 100 Mechanical Ventilator 50 07/17/17 01:19 105 36 50 07/17/17 01:15 105 32 100/65 99 Mechanical Ventilator 50 07/17/17 01:00 30 07/17/17 01:00 100/65 07/17/17 01:00 103 31 100/65 100 Mechanical Ventilator 50 07/17/17 00:45 106 32 107/65 98 Mechanical Ventilator 50 07/17/17 00:30 104 31 89/64 99 Mechanical Ventilator 50 07/17/17 00:15 106 33 105/70 97 Mechanical Ventilator 50 07/17/17 00:00 104 07/17/17 00:00 99.0 103 29 100/64 100 Mechanical Ventilator 50 07/17/17 00:00 30 07/17/17 00:00 100/64 07/16/17 23:45 102 28 100/63 100 Mechanical Ventilator 50 07/16/17 23:30 102 28 114/77 100 Mechanical Ventilator 50 07/16/17 23:15 101 28 105/68 100 Mechanical Ventilator 50 07/16/17 23:10 50 07/16/17 23:10 104 31 100 Mechanical Ventilator 50 07/16/17 23:09 108 22 100 Mechanical Ventilator 07/16/17 23:00 101 28 108/68 100 Mechanical Ventilator 50 07/16/17 23:00 30 07/16/17 23:00 108/68 07/16/17 22:45 100 29 111/71 100 Mechanical Ventilator 50 07/16/17 22:38 102 37 50 07/16/17 22:30 102 28 114/77 100 Mechanical Ventilator 50 07/16/17 22:15 101 29 99/69 100 Mechanical Ventilator 50 07/16/17 22:00 30 07/16/17 22:00 112/70 07/16/17 22:00 101 29 112/70 100 Mechanical Ventilator 50 07/16/17 22:00 50 07/16/17 21:45 101 28 102/58 100 Mechanical Ventilator 50 07/16/17 21:45 100 92/48 07/16/17 21:45 92/48 07/16/17 21:30 100 30 91/59 100 Mechanical Ventilator 50 07/16/17 21:15 104 28 92/48 96 Mechanical Ventilator 50 07/16/17 21:00 106 28 108/67 100 Mechanical Ventilator 50 07/16/17 21:00 50 07/16/17 21:00 30 07/16/17 21:00 108/67 07/16/17 20:46 98 32 50 07/16/17 20:45 106 28 112/68 94 Mechanical Ventilator 50 07/16/17 20:42 30 07/16/17 20:30 102 31 111/69 98 Mechanical Ventilator 50 07/16/17 20:15 103 30 101/66 99 Mechanical Ventilator 50 07/16/17 20:00 50 07/16/17 20:00 106 07/16/17 20:00 98.0 105 30 101/64 95 Mechanical Ventilator 50 07/16/17 20:00 101/64 07/16/17 19:45 111 30 99/61 95 Mechanical Ventilator 50 07/16/17 19:30 107 31 111/67 99 Mechanical Ventilator 50 07/16/17 19:15 106 31 108/68 100 Mechanical Ventilator 50 07/16/17 19:11 105 33 100 Mechanical Ventilator 50 07/16/17 19:06 105 28 50 07/16/17 19:05 50 07/16/17 19:04 108 40 99 Mechanical Ventilator 50 07/16/17 19:00 111/79 07/16/17 19:00 107 29 102/67 98 Mechanical Ventilator 50 07/16/17 18:45 104 34 107/69 100 Mechanical Ventilator 50 07/16/17 18:30 101 35 114/78 100 Mechanical Ventilator 50 17 18:15 103 35 105/64 100 Mechanical Ventilator 50 07/16/17 18:00 103 34 98/66 98 Mechanical Ventilator 50 17 17:45 106 32 98/66 99 Mechanical Ventilator 50 07/16/17 17:30 107 31 102/63 98 Mechanical Ventilator 50 07/16/17 17:26 107 94/62 07/16/17 17:15 107 31 50 07/16/17 17:15 110 32 94/62 99 Mechanical Ventilator 50 07/16/17 17:00 112 32 92/60 98 Mechanical Ventilator 50 07/16/17 16:45 114 31 93/61 93 Mechanical Ventilator 50 07/16/17 16:30 107 31 106/65 98 Mechanical Ventilator 50 07/16/17 16:15 107 31 97/63 99 Mechanical Ventilator 50 07/16/17 16:06 111/66 07/16/17 16:00 108 07/16/17 16:00 98.8 108 31 111/66 99 Mechanical Ventilator 50 07/16/17 16:00 50 07/16/17 15:45 108 31 102/66 99 Mechanical Ventilator 50 07/16/17 15:30 108 32 101/64 100 Mechanical Ventilator 50 07/16/17 15:23 Mechanical Ventilator 07/16/17 15:23 108 27 100 Mechanical Ventilator 07/16/17 15:22 108 29 50 07/16/17 15:15 110 30 100/65 99 Mechanical Ventilator 50 07/16/17 15:00 112 32 93/59 97 Mechanical Ventilator 50 07/16/17 14:45 109 31 93/58 99 Mechanical Ventilator 50 07/16/17 14:30 110 31 95/59 100 Mechanical Ventilator 50 07/16/17 14:15 110 31 94/58 100 Mechanical Ventilator 50 07/16/17 13:45 115 32 100/65 100 Mechanical Ventilator 50 07/16/17 13:41 115 31 50 07/16/17 13:34 115 103/61 07/16/17 13:30 115 33 94/63 100 Mechanical Ventilator 50 07/16/17 13:15 116 32 103/61 99 Mechanical Ventilator 50 07/16/17 13:00 117 32 99/61 99 Mechanical Ventilator 50 07/16/17 12:45 117 32 102/57 99 Mechanical Ventilator 50 Height (Feet): 5 Height (Inches): 9.00 Weight (Pounds): 188 HEENT: other - intubated Respiratory/Chest: lungs clear Cardiovascular: normal rate, regular rhythm, no gallop/murmur Abdomen: soft, non tender, other - GT Extremities: no edema, other - right IJ catheter Microbiology Date/Time Source Procedure Growth Status 07/14/17 13:20 Blood Blood Culture - Final Staphylococcus Aureus - Mrsa Complete 07/14/17 13:10 Blood Blood Culture - Preliminary NO GROWTH AFTER 48 HOURS Resulted 07/16/17 21:00 Sputum Gram Stain - Final Resulted 07/16/17 21:00 Sputum Sputum Culture Pending Resulted 07/15/17 17:00 Sputum Gram Stain - Final Resulted 07/15/17 17:00 Sputum Culture - Preliminary Staphylococcus Aureus Olga Albicans Resulted 07/15/17 17:00 Urine,Clean Catch Urine Culture - Preliminary NO GROWTH AFTER 24 HOURS Resulted 07/14/17 15:00 Rectum VRE Culture - Final Staphylococcus Aureus - Mrsa Resulted Laboratory Tests Test 07/16/17 19:15 07/17/17 05:00 07/17/17 08:05 07/17/17 09:55 Lactic Acid Level 4.30 mmol/L (0.66-2.22) H 4.50 mmol/L (0.66-2.22) H 4.20 mmol/L (0.66-2.22) H White Blood Count 22.0 K/UL (4.8-10.8) H Red Blood Count 3.75 M/UL (4.70-6.10) L Hemoglobin 12.0 G/DL (14.2-18.0) L Hematocrit 35.6 % (42.0-52.0) L Mean Corpuscular Volume 95 FL (80-99) Mean Corpuscular Hemoglobin 31.9 PG (27.0-31.0) H Mean Corpuscular Hemoglobin Concent 33.7 G/DL (32.0-36.0) Red Cell Distribution Width 13.1 % (11.6-14.8) Platelet Count 60 K/UL (150-450) L Mean Platelet Volume 10.4 FL (6.5-10.1) H Neutrophils (%) (Auto) % (45.0-75.0) Lymphocytes (%) (Auto) % (20.0-45.0) Monocytes (%) (Auto) % (1.0-10.0) Eosinophils (%) (Auto) % (0.0-3.0) Basophils (%) (Auto) % (0.0-2.0) Differential Total Cells Counted 100 Neutrophils % (Manual) 75 % (45-75) Lymphocytes % (Manual) 3 % (20-45) L Monocytes % (Manual) 3 % (1-10) Eosinophils % (Manual) 0 % (0-3) Basophils % (Manual) 0 % (0-2) Band Neutrophils 19 % (0-8) H Platelet Estimate Decreased L Platelet Morphology Normal Red Blood Cell Morphology Normal Sodium Level 126 MMOL/L (136-145) L Potassium Level 3.9 MMOL/L (3.5-5.1) Chloride Level 96 MMOL/L (98-107) L Carbon Dioxide Level 17 MMOL/L (21-32) L Anion Gap 13 mmol/L (5-15) Blood Urea Nitrogen 33 mg/dL (7-18) H Creatinine 2.5 MG/DL (0.55-1.30) H Estimat Glomerular Filtration Rate 31.6 mL/min (>60) Glucose Level 99 MG/DL (74-106) Calcium Level 7.1 MG/DL (8.5-10.1) L Arterial Blood pH 7.330 (7.350-7.450) Arterial Blood Partial Pressure CO2 34.8 mmHg (35.0-45.0) L Arterial Blood Partial Pressure O2 65.3 mmHg (75.0-100.0) L Arterial Blood HCO3 17.9 mmol/L (22.0-26.0) L Arterial Blood Oxygen Saturation 90.0 % (92.0-98.0) L Arterial Blood Base Excess -7.1 Aston Test Positive NIKOLAY HANNA Jul 17, 2017 12:42
--- NOTE | 2017-07-17 13:43 | Wound Nurse Progress Note ---
Wound RN Progress Note Wound Consult upon assessment noted scar tissue to mid sacral area. continue to monitor skin for any further changes of condition to skin. Recommendation. -Turn and reposition. -Keep clean and dry. -Avoid shear and friction. -Provide skin barrier cream for skin management and prevention. -Assess and notify MD for any further change of condition to skin noted. LAURA MICHELLE Jul 17, 2017 13:43
--- NOTE | 2017-07-17 14:21 | Diagnostic Imaging Report ---
Indication: Status post intubation Technique: One view of the chest Comparison: 14 hours earlier Findings: Endotracheal tube has withdrawn somewhat, tip now approximately 7 cm above the anthony, just below the thoracic inlet. Stable satisfactory positions of nasogastric tube and right jugular central venous catheter. Bilateral interstitial and alveolar infiltrates versus edema persists, essentially unchanged. The heart is borderline enlarged. Impression: Slightly higher position of endotracheal tube than on previous exam. Consider advancement. 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 Salazar
--- NOTE | 2017-07-17 16:17 | Diagnostic Imaging Report ---
Indication: Dyspnea Technique: One view of the chest Comparison: 07/16/2017 Findings: Diffuse bilateral interstitial and alveolar opacities persists, unchanged. Stable satisfactory positions of tubes and lines. Impression: Unchanged, over one day, findings as above.
[2017-07-17] MEDS ORDERED: Sodium Bicarbonate 50ml Carp IV ONE (18:20)
[2017-07-17 18:47] LABS: REFLEX LACTIC ACID YES OR NO YES
[2017-07-17] MEDS: Dyna-Hex 2% Top Sol 2oz TOPIC SCH (19:57)
[2017-07-17 20:23] LABS: INR 1.8 (0.9-1.1); PROTHROMBIN TIME 18.6 SEC (9.30-11.50)
--- NOTE | 2017-07-17 22:25 | General Progress Note ---
Assessment/Plan Assessment/Plan GI CONSULT Dictated EGD tomorrow Thank you Jacob Farmer MD Subjective Allergies: Coded Allergies: CODEINE (Verified Allergy, Unknown, 11/15/16) Objective Last 24 Hour Vital Signs Date Time Temp Pulse Resp B/P (MAP) Pulse Ox O2 Delivery O2 Flow Rate FiO2 07/17/17 21:04 36 07/17/17 20:55 105 31 50 07/17/17 20:29 103 108/74 07/17/17 19:35 105 32 100 Mechanical Ventilator 50 07/17/17 19:23 50 07/17/17 19:22 104 34 100 Mechanical Ventilator 50 07/17/17 19:20 105 36 50 07/17/17 18:45 107 30 133/68 100 Mechanical Ventilator 50 07/17/17 18:30 108 34 123/60 100 Mechanical Ventilator 50 07/17/17 18:15 101 32 107/68 100 Mechanical Ventilator 50 07/17/17 18:00 103 33 107/67 100 Mechanical Ventilator 50 07/17/17 17:45 101 32 118/61 100 Mechanical Ventilator 50 07/17/17 17:30 102 32 123/69 100 Mechanical Ventilator 50 07/17/17 17:15 101 32 126/62 100 Mechanical Ventilator 50 07/17/17 17:02 107 37 50 07/17/17 17:00 103 31 125/81 100 Mechanical Ventilator 50 07/17/17 16:48 102 112/78 07/17/17 16:45 103 33 99/69 100 Mechanical Ventilator 50 07/17/17 16:30 101 34 112/78 100 Mechanical Ventilator 50 07/17/17 16:23 98/58 07/17/17 16:15 103 32 98/58 100 Mechanical Ventilator 50 07/17/17 16:00 50 07/17/17 16:00 104 07/17/17 16:00 98.7 102 31 108/58 100 Mechanical Ventilator 50 07/17/17 15:45 104 31 106/68 100 Mechanical Ventilator 50 07/17/17 15:30 102 32 95/58 100 Mechanical Ventilator 50 07/17/17 15:27 104 38 50 07/17/17 15:15 102 31 114/68 100 Mechanical Ventilator 50 07/17/17 15:00 103 30 117/65 100 Mechanical Ventilator 50 07/17/17 14:45 105 30 109/60 100 Mechanical Ventilator 50 12/6/17 14:30 106 32 113/63 100 Mechanical Ventilator 50 6/17 14:15 109 29 121/81 100 Mechanical Ventilator 50 6/17 14:00 103 31 121/81 100 Mechanical Ventilator 50 6/17 13:45 105 31 114/75 100 Mechanical Ventilator 50 6/17 13:30 105 31 107/73 100 Mechanical Ventilator 50 6/17 13:15 105 32 116/67 100 Mechanical Ventilator 50 17 13:00 108 28 110/74 100 Mechanical Ventilator 50 07/17/17 12:45 107 31 110/74 100 Mechanical Ventilator 50 6/17 12:43 109 34 50 17 12:37 110 111/76 07/17/17 12:30 109 33 111/76 100 Mechanical Ventilator 50 07/17/17 12:15 105 31 104/62 100 Mechanical Ventilator 50 17 12:04 106 28 100 Endotracheal Tube 50.0 50 07/17/17 12:00 98.8 107 30 129/83 100 Mechanical Ventilator 50 07/17/17 12:00 50 17 12:00 108 07/17/17 11:55 107 33 100 Mechanical Ventilator 50 07/17/17 11:54 107 36 100 Mechanical Ventilator 50 07/17/17 11:51 106 30 50 17 11:45 105 30 112/76 100 Mechanical Ventilator 50 17 11:30 105 30 111/65 100 Mechanical Ventilator 50 17 11:15 105 31 113/71 100 Mechanical Ventilator 50 17 11:00 103 31 113/71 100 Mechanical Ventilator 50 17 10:45 103 30 113/76 100 Mechanical Ventilator 50 17 10:30 103 29 108/78 100 Mechanical Ventilator 50 6/17 10:15 103 30 112/74 100 Mechanical Ventilator 50 17 10:00 103 30 112/74 100 Mechanical Ventilator 50 07/17/17 09:45 103 30 113/76 100 Mechanical Ventilator 50 17 09:30 103 29 108/78 100 Mechanical Ventilator 50 6/17 09:15 103 30 112/74 100 Mechanical Ventilator 50 07/17/17 09:00 103 30 107/74 100 Mechanical Ventilator 50 07/17/17 08:48 103 102/72 12//17 08:48 102/72 07/17/17 08:45 103 30 95/62 100 Mechanical Ventilator 50 07/17/17 08:32 102 32 50 07/17/17 08:30 103 31 102/72 100 Mechanical Ventilator 50 07/17/17 08:15 103 30 102/70 100 Mechanical Ventilator 50 07/17/17 08:00 108 07/17/17 08:00 98.7 108 32 107/72 100 Mechanical Ventilator 50 07/17/17 08:00 50 07/17/17 07:45 105 29 108/75 100 Mechanical Ventilator 50 07/17/17 07:30 105 30 109/73 99 Mechanical Ventilator 50 07/17/17 07:15 104 31 111/75 96 Mechanical Ventilator 50 07/17/17 07:10 106 32 100 Mechanical Ventilator 50 07/17/17 07:00 104 31 128/84 100 Mechanical Ventilator 50 07/17/17 06:55 100 31 50 07/17/17 06:52 100 33 96 Mechanical Ventilator 50 07/17/17 06:52 50 07/17/17 06:45 105 30 105/71 98 Mechanical Ventilator 50 07/17/17 06:30 105 30 111/70 98 Mechanical Ventilator 50 07/17/17 06:15 104 30 101/64 98 Mechanical Ventilator 50 07/17/17 06:00 104 30 110/74 98 Mechanical Ventilator 50 07/17/17 05:45 105 30 111/70 98 Mechanical Ventilator 50 07/17/17 05:30 106 30 103/73 98 Mechanical Ventilator 50 07/17/17 05:15 105 30 111/53 98 Mechanical Ventilator 50 07/17/17 05:03 102 30 50 07/17/17 05:00 106 30 104/71 98 Mechanical Ventilator 50 07/17/17 05:00 30 12 05:00 104/71 07/17/17 04:50 100 104/68 07/17/17 04:49 104/68 07/17/17 04:45 105 30 108/75 99 Mechanical Ventilator 50 07/17/17 04:30 105 29 95/61 100 Mechanical Ventilator 50 07/17/17 04:15 108 28 100/65 100 Mechanical Ventilator 50 07/17/17 04:00 98.0 110 30 105/60 100 Mechanical Ventilator 50 07/17/17 04:00 30 12 04:00 100/65 07/17/17 04:00 50 07/17/17 04:00 113 07/17/17 03:45 110 30 105/60 100 Mechanical Ventilator 50 07/17/17 03:30 106 32 105/60 100 Mechanical Ventilator 50 07/17/17 03:15 97 32 105/60 100 Mechanical Ventilator 50 07/17/17 03:12 102 32 100 Mechanical Ventilator 50 07/17/17 03:07 98 33 50 07/17/17 03:06 50 07/17/17 03:05 98 33 100 Mechanical Ventilator 50 07/17/17 03:00 101 31 88/65 100 Mechanical Ventilator 50 07/17/17 03:00 30 07/17/17 03:00 88/65 07/17/17 02:45 101 32 97/64 100 Mechanical Ventilator 50 07/17/17 02:30 105 33 104/66 99 Mechanical Ventilator 50 07/17/17 02:15 101 31 100/68 100 Mechanical Ventilator 50 07/17/17 02:00 102 30 99/67 100 Mechanical Ventilator 50 07/17/17 02:00 30 07/17/17 02:00 99/68 07/17/17 01:45 104 31 99/68 100 Mechanical Ventilator 50 07/17/17 01:34 104 100/65 07/17/17 01:30 104 32 98/61 100 Mechanical Ventilator 50 07/17/17 01:19 105 36 50 07/17/17 01:15 105 32 100/65 99 Mechanical Ventilator 50 07/17/17 01:00 30 07/17/17 01:00 100/65 07/17/17 01:00 103 31 100/65 100 Mechanical Ventilator 50 07/17/17 00:45 106 32 107/65 98 Mechanical Ventilator 50 07/17/17 00:30 104 31 89/64 99 Mechanical Ventilator 50 07/17/17 00:15 106 33 105/70 97 Mechanical Ventilator 50 07/17/17 00:00 104 07/17/17 00:00 99.0 103 29 100/64 100 Mechanical Ventilator 50 07/17/17 00:00 30 07/17/17 00:00 100/64 07/16/17 23:45 102 28 100/63 100 Mechanical Ventilator 50 07/16/17 23:30 102 28 114/77 100 Mechanical Ventilator 50 07/16/17 23:15 101 28 105/68 100 Mechanical Ventilator 50 07/16/17 23:10 50 07/16/17 23:10 104 31 100 Mechanical Ventilator 50 07/16/17 23:09 108 22 100 Mechanical Ventilator 07/16/17 23:00 101 28 108/68 100 Mechanical Ventilator 50 07/16/17 23:00 30 07/16/17 23:00 108/68 07/16/17 22:45 100 29 111/71 100 Mechanical Ventilator 50 07/16/17 22:38 102 37 50 07/16/17 22:30 102 28 114/77 100 Mechanical Ventilator 50 Intake and Output 07/17/17 07/18/17 19:00 07:00 Intake Total 2295.999 ml Output Total 2975 ml Balance -679.001 ml IV Total 2295.999 ml Output Urine Total 2975 ml Laboratory Tests 07/17/17 05:00: White Blood Count 22.0H, Red Blood Count 3.75L, Hemoglobin 12.0L, Hematocrit 35.6L, Mean Corpuscular Volume 95, Mean Corpuscular Hemoglobin 31.9H, Mean Corpuscular Hemoglobin Concent 33.7, Red Cell Distribution Width 13.1, Platelet Count 60L, Mean Platelet Volume 10.4H, Neutrophils (%) (Auto) , Lymphocytes (%) (Auto) , Monocytes (%) (Auto) , Eosinophils (%) (Auto) , Basophils (%) (Auto) , Differential Total Cells Counted 100, Neutrophils % (Manual) 75, Lymphocytes % ( Manual) 3L, Monocytes % (Manual) 3, Eosinophils % (Manual) 0, Basophils % ( Manual) 0, Band Neutrophils 19H, Platelet Estimate DecreasedL, Platelet Morphology Normal, Red Blood Cell Morphology Normal, Sodium Level 126L, Potassium Level 3.9, Chloride Level 96L, Carbon Dioxide Level 17L, Anion Gap 13 , Blood Urea Nitrogen 33H, Creatinine 2.5H, Estimat Glomerular Filtration Rate 31.6, Glucose Level 99, Lactic Acid Level 4.50H, Calcium Level 7.1L 07/17/17 08:05: Lactic Acid Level 4.20H 07/17/17 09:55: Arterial Blood pH 7.330L, Arterial Blood Partial Pressure CO2 34.8L, Arterial Blood Partial Pressure O2 65.3L, Arterial Blood HCO3 17.9L, Arterial Blood Oxygen Saturation 90.0L, Arterial Blood Base Excess -7.1, Aston Test Positive 07/17/17 18:20: Lactic Acid Level 4.20H 07/17/17 20:00: Prothrombin Time 18.6H, Prothromb Time International Ratio 1.8H, Activated Partial Thromboplast Time 71H Height (Feet): 5 Height (Inches): 9.00 Weight (Pounds): 188 JACOB FARMER Jul 17, 2017 22:25
[2017-07-18] VITALS (82 sets, daily range): BP systolic 80–141; BP diastolic 48–104
[2017-07-18] MEDS: Phenylephrine 50 MG in D5W 245 ML IV SCH ×7 (00:06→22:46)
[2017-07-18] MEDS: Albuterol ud Inhalation HHN SCH ×6 (03:18→22:51)
--- NOTE | 2017-07-18 04:15 | Consultation ---
DATE OF CONSULTATION: 07/17/2017 GASTROENTEROLOGY CONSULTATION CHIEF COMPLAINT: I was asked to see this patient by Dr. Gerber Shelton for evaluation of upper gastrointestinal bleeding. HISTORY OF PRESENT ILLNESS: The patient is an unfortunate 62-year-old man with multiple medical problems, who was brought into the hospital due to sepsis. The patient is intubated and is unable to provide any history. Most of the information is only available from the chart. The patient has a long list of medical problems, which are outlined below. Briefly, the patient has had a history of prior sepsis with respiratory failure requiring a gastrostomy and a tracheostomy tube placement. At some point, subsequently however apparently his breathing improved and he was able to be decannulated. He now only has a gastrostomy tube, but no tracheostomy. Because of the sepsis and shock and respiratory failure, however, the patient has been intubated and is now currently on mechanical ventilation. He is restless and agitated, but unable to provide any history. Most of the information is only available from the chart and also from discussion with the patient's . The patient was on Xarelto up to yesterday at 5 p.m., at which point this morning when the patient had an episode of coffee-ground emesis, the Xarelto was held, therefore his last dose was yesterday at 5 p.m. The patient's orogastric tube has been placed to low intermittent suction with some dark material that has been coming through it. PAST MEDICAL HISTORY: History of sepsis, respiratory failure, history of urinary tract infection, prior admissions with Pseudomonas and streptococcal infections, acute kidney injury, chronic anoxic encephalopathy, seizure disorder, status post gastrostomy tube placement, status post tracheostomy tube placement, status post tracheostomy decannulation, hypertension, chronic obstructive pulmonary disease, anemia of chronic disease, elevated alkaline phosphatase, history of cocaine use in the past, and history of alcoholic cirrhosis. MEDICATIONS: See the chart list for details. SOCIAL HISTORY: The patient is from a retirement, but he has a who looks after his affairs. FAMILY HISTORY: Noncontributory in this setting. REVIEW OF SYSTEMS: Unobtainable. PHYSICAL EXAMINATION: GENERAL: Debilitated, restless man, who was on the ventilator, who was seen in ICU with the nurse at bedside. HEENT: Normocephalic and atraumatic. Endotracheal tube and orogastric tube were in place. NECK: Supple. CHEST: Revealed coarse breath sounds. CARDIOVASCULAR: Revealed a regular rhythm. ABDOMEN: Soft with gastrostomy tube without any masses. EXTREMITIES: Revealed trace edema in the lower extremities. NEUROLOGIC: Deferred. LABORATORY DATA: Laboratory data were noted. ASSESSMENT: This patient presents with septic shock and respiratory failure and now upper gastrointestinal bleeding in the form of dark aspirated emesis from the orogastric tube. More concerning is his rapid rising white count from 4.8 to now 22. There has not been a significant drop in his blood count, but his platelet counts have also dropped consistent with significant disseminated intravascular coagulation. He is on the Xarelto, which has been held since yesterday. There is also significant electrolyte abnormalities with sodium 126 and creatinine of 2.5. It is unclear to me whether his PT and PTT are also off, which can be seen during sepsis and making him more coagulopathic. In further addition to all the above high mortality findings, the patient also has lactic acidosis, which is consistent with his sepsis and shock. His overall prognosis is therefore extremely poor and his condition is very guarded. The patient's coagulation parameters will be checked and his labs will be followed closely. He should receive intravenous fluids, feeding should be held. I will schedule the patient for endoscopy tomorrow morning, although his overall prognosis appears to be significantly poor. KUB will also be ordered from his abdomen on an urgent basis. If there are any significant abnormalities, then the patient should undergo a CT scan of the abdomen and pelvis to rule out ischemic bowel. Broad-spectrum antibiotics should be continued and the proton-pump inhibitor has already been written and is being given. RECOMMENDATIONS: Per above discussion and per orders written in the chart. The management of this patient and his poor prognosis were explained to the patient's . All questions were answered and the patient will be scheduled for endoscopy tomorrow. Thank you for asking me to participate in the care of this patient. Jacob Farmer M.D. DR: DEBBIE JOB#: [id number] CC:
[2017-07-18 05:11] LABS: MEAN CORPUSCULAR HEMOGLOBIN 31.9 PG (27.0-31.0); MEAN CORPUSCULAR HGB CONC 34.3 G/DL (32.0-36.0); MEAN CORPUSCULAR VOLUME 93 FL (80-99); MEAN PLATELET VOLUME 13.7 FL (6.5-10.1); PLATELET COUNT 37 K/UL (150-450); RED BLOOD COUNT 3.33 M/UL (4.70-6.10); RED CELL DISTRIBUTION WIDTH 12.8 % (11.6-14.8); WHITE BLOOD COUNT 11.7 K/UL (4.8-10.8)
[2017-07-18] MEDS: metroNIDAZOLE 250mg tab GT SCH ×3 (05:46→21:41)
[2017-07-18] MEDS: D5NS 1,000 ML IV SCH ×2 (05:46→16:43)
[2017-07-18 06:12] LABS: ALANINE AMINOTRANSFERASE 41 U/L (12-78); ALBUMIN/GLOBULIN RATIO 0.7 (1.0-2.7); ANION GAP 11 mmol/L (5-15); ASPARTATE AMINO TRANSFERASE 77 U/L (15-37); CALCIUM 7.3 MG/DL (8.5-10.1); CARBON DIOXIDE 21 MMOL/L (21-32); CHLORIDE 103 MMOL/L (98-107); CREATININE 1.9 MG/DL (0.55-1.30); GLOMERULAR FILTRATION RATE 43.5 mL/min (>60); POTASSIUM 3.4 MMOL/L (3.5-5.1); SODIUM 135 MMOL/L (136-145); TOTAL PROTEIN 4.8 G/DL (6.4-8.2)
[2017-07-18 06:19] LABS: BILIRUBIN,DIRECT 2.7 MG/DL (0.0-0.3)
[2017-07-18 06:23] LABS: REFLEX LACTIC ACID YES OR NO YES
[2017-07-18 06:44] LABS: INR 1.7 (0.9-1.1); PROTHROMBIN TIME 18.3 SEC (9.30-11.50)
--- NOTE | 2017-07-18 08:10 | Critical Care Progress Note ---
Assessment/Plan Assessment/Plan IMPRESSION sepsis elevated lactic acid respiratory failure ho alcholic liver disease seizure disorder acute renal failure possible GIB coffee ground emesis MRSA sepsis PLAN NGT ventilator management follow up ABG monitor PH and adjust pressors and taper seizure meds IV antibiotics noted ID evaluation GI evaluation guarded hope to resume feeds Critical Care - Subjective Interval Events: seems improved parameters and labs improved ROS Limited/Unobtainable: Yes Condition: critical EKG Rhythm: Sinus Tachycardia Residuals: minimal Tube Feeding Tolerated: yes Critical Care - Objective ET-Tube: 7.5 ET Position: 23 Last 24 Hour Vital Signs Date Time Temp Pulse Resp B/P (MAP) Pulse Ox O2 Delivery O2 Flow Rate FiO2 07/18/17 07:42 95 107/62 07/18/17 07:29 96 35 100 Mechanical Ventilator 50 07/18/17 07:12 100 37 50 07/18/17 07:08 94 31 100 Mechanical Ventilator 50 07/18/17 07:08 50 07/18/17 07:00 36 07/18/17 07:00 95 38 105/59 100 Mechanical Ventilator 50 07/18/17 06:30 95 38 97/56 100 Mechanical Ventilator 50 07/18/17 06:00 103 37 129/69 100 Mechanical Ventilator 50 07/18/17 06:00 36 07/18/17 06:00 129/69 07/18/17 05:11 98 35 50 07/18/17 05:00 97 37 119/76 100 Mechanical Ventilator 50 07/18/17 05:00 37 07/18/17 05:00 119/76 07/18/17 04:30 104 37 116/67 100 Mechanical Ventilator 50 07/18/17 04:00 98.1 108 38 104/62 100 Mechanical Ventilator 50 07/18/17 04:00 110 07/18/17 04:00 50 07/18/17 04:00 38 07/18/17 04:00 104/62 07/18/17 03:49 112/74 07/18/17 03:48 100 112/74 07/18/17 03:30 102 40 88/52 100 Mechanical Ventilator 50 07/18/17 03:27 102 40 100 Mechanical Ventilator 50 07/18/17 03:17 50 07/18/17 03:17 101 40 100 Mechanical Ventilator 50 07/18/17 03:13 97 37 50 07/18/17 03:00 97 38 111/67 100 Mechanical Ventilator 50 07/18/17 03:00 38 07/18/17 03:00 111/67 07/18/17 02:30 97 38 110/64 100 Mechanical Ventilator 50 07/18/17 02:00 38 07/18/17 02:00 101/48 07/18/17 02:00 101 38 101/48 100 Mechanical Ventilator 50 07/18/17 01:30 103 38 100/61 100 Mechanical Ventilator 50 07/18/17 01:20 102 39 50 07/18/17 01:00 32 07/18/17 01:00 107/60 07/18/17 01:00 104 36 107/60 100 Mechanical Ventilator 50 07/18/17 00:30 105 36 112/59 100 Mechanical Ventilator 50 07/18/17 00:06 101 98/67 07/18/17 00:00 97.9 102 36 98/67 100 Mechanical Ventilator 50 07/18/17 00:00 50 07/18/17 00:00 37 07/18/17 00:00 99/62 07/18/17 00:00 106 07/17/17 23:30 106 36 117/63 100 Mechanical Ventilator 50 07/17/17 23:24 50 07/17/17 23:15 106 36 100 Mechanical Ventilator 50 07/17/17 23:15 106 35 50 07/17/17 23:15 107 34 100 Mechanical Ventilator 50 07/17/17 23:00 104 33 110/70 100 Mechanical Ventilator 50 07/17/17 23:00 35 07/17/17 22:30 106 35 101/66 100 Mechanical Ventilator 50 07/17/17 22:00 106 35 101/66 100 Mechanical Ventilator 50 07/17/17 22:00 32 07/17/17 21:30 107 35 102/73 100 Mechanical Ventilator 50 07/17/17 21:04 36 07/17/17 21:00 30 07/17/17 21:00 106 34 99/70 100 Mechanical Ventilator 50 07/17/17 20:55 105 31 50 07/17/17 20:30 106 35 103/56 100 Mechanical Ventilator 50 07/17/17 20:29 103 108/74 07/17/17 20:00 104 35 108/74 100 Mechanical Ventilator 50 07/17/17 20:00 50 07/17/17 20:00 30 07/17/17 20:00 101 12/6/17 19:35 105 32 100 Mechanical Ventilator 50 17 19:30 97.9 103 34 87/59 100 Mechanical Ventilator 50 17 19:23 50 17 19:22 104 34 100 Mechanical Ventilator 50 17 19:20 105 36 50 17 19:00 33 17 18:45 107 30 133/68 100 Mechanical Ventilator 50 17 18:30 108 34 123/60 100 Mechanical Ventilator 50 17 18:15 101 32 107/68 100 Mechanical Ventilator 50 17 18:00 103 33 107/67 100 Mechanical Ventilator 50 17 17:45 101 32 118/61 100 Mechanical Ventilator 50 17 17:30 102 32 123/69 100 Mechanical Ventilator 50 17 17:15 101 32 126/62 100 Mechanical Ventilator 50 17 17:02 107 37 50 07/17/17 17:00 103 31 125/81 100 Mechanical Ventilator 50 07/17/17 16:48 102 112/78 17 16:45 103 33 99/69 100 Mechanical Ventilator 50 17 16:30 101 34 112/78 100 Mechanical Ventilator 50 07/17/17 16:23 98/58 07/17/17 16:15 103 32 98/58 100 Mechanical Ventilator 50 17 16:00 50 07/17/17 16:00 104 07/17/17 16:00 98.7 102 31 108/58 100 Mechanical Ventilator 50 07/17/17 15:45 104 31 106/68 100 Mechanical Ventilator 50 17 15:30 102 32 95/58 100 Mechanical Ventilator 50 17 15:27 104 38 50 17 15:15 102 31 114/68 100 Mechanical Ventilator 50 17 15:00 103 30 117/65 100 Mechanical Ventilator 50 17 14:45 105 30 109/60 100 Mechanical Ventilator 50 17 14:30 106 32 113/63 100 Mechanical Ventilator 50 17 14:15 109 29 121/81 100 Mechanical Ventilator 50 17 14:00 103 31 121/81 100 Mechanical Ventilator 50 17 13:45 105 31 114/75 100 Mechanical Ventilator 50 12/6/17 13:30 105 31 107/73 100 Mechanical Ventilator 50 17 13:15 105 32 116/67 100 Mechanical Ventilator 50 07/17/17 13:00 108 28 110/74 100 Mechanical Ventilator 50 07/17/17 12:45 107 31 110/74 100 Mechanical Ventilator 50 07/17/17 12:43 109 34 50 07/17/17 12:37 110 111/76 07/17/17 12:30 109 33 111/76 100 Mechanical Ventilator 50 07/17/17 12:15 105 31 104/62 100 Mechanical Ventilator 50 07/17/17 12:04 106 28 100 Endotracheal Tube 50.0 50 07/17/17 12:00 98.8 107 30 129/83 100 Mechanical Ventilator 50 07/17/17 12:00 50 07/17/17 12:00 108 07/17/17 11:55 107 33 100 Mechanical Ventilator 50 07/17/17 11:54 107 36 100 Mechanical Ventilator 50 07/17/17 11:51 106 30 50 07/17/17 11:45 105 30 112/76 100 Mechanical Ventilator 50 07/17/17 11:30 105 30 111/65 100 Mechanical Ventilator 50 07/17/17 11:15 105 31 113/71 100 Mechanical Ventilator 50 07/17/17 11:00 103 31 113/71 100 Mechanical Ventilator 50 07/17/17 10:45 103 30 113/76 100 Mechanical Ventilator 50 07/17/17 10:30 103 29 108/78 100 Mechanical Ventilator 50 07/17/17 10:15 103 30 112/74 100 Mechanical Ventilator 50 07/17/17 10:00 103 30 112/74 100 Mechanical Ventilator 50 07/17/17 09:45 103 30 113/76 100 Mechanical Ventilator 50 07/17/17 09:30 103 29 108/78 100 Mechanical Ventilator 50 07/17/17 09:15 103 30 112/74 100 Mechanical Ventilator 50 07/17/17 09:00 103 30 107/74 100 Mechanical Ventilator 50 07/17/17 08:48 103 102/72 07/17/17 08:48 102/72 07/17/17 08:45 103 30 95/62 100 Mechanical Ventilator 50 07/17/17 08:32 102 32 50 07/17/17 08:30 103 31 102/72 100 Mechanical Ventilator 50 07/17/17 08:15 103 30 102/70 100 Mechanical Ventilator 50 Objective: WDWN very ill intubated clear breath sounds bilaterally without rhonchi or wheeze [id number] tachy without MRG NABS nontender no HSM no CC some edema reduced LOC Micro: Microbiology Date/Time Source Procedure Growth Status 07/16/17 21:00 Sputum Gram Stain - Final Resulted 07/16/17 21:00 Sputum Sputum Culture Pending Resulted 07/15/17 17:00 Sputum Gram Stain - Final Resulted 07/15/17 17:00 Sputum Culture - Preliminary Staphylococcus Aureus Olga Albicans Resulted 07/15/17 17:00 Urine,Clean Catch Urine Culture - Preliminary NO GROWTH AFTER 24 HOURS Resulted EUSEBIO CRESPO Jul 18, 2017 08:10
[2017-07-18 08:26] LABS: BAND NEUTROPHILS % (MANUAL) 12 % (0-8); BASOPHILS % (MANUAL) 0 % (0-2); EOSINOPHILS % (MANUAL) 0 % (0-3); HYPOCHROMASIA 1+; LYMPHOCYTES % (MANUAL) 6 % (20-45); NEUTROPHILS % (MANUAL) 76 % (45-75); PLATELET ESTIMATE DECREASED; PLATELET MORPHOLOGY NORMAL; TOTAL CELLS COUNTED 100
[2017-07-18] MEDS: levETIRAcetam 500mg/5ml Liquid GT SCH ×2 (09:08→21:03)
[2017-07-18] MEDS: LaMICtal 150mg tab GT SCH (09:08)
[2017-07-18] MEDS: carBAMazepine 200mg tab GT SCH ×2 (09:09→21:03)
[2017-07-18] MEDS: Meropenem 1 GM in NS 55 ML IVPB SCH ×2 (09:09→21:03)
--- NOTE | 2017-07-18 09:21 | Infectious Diseases Prog Note ---
Assessment/Plan Assessment/Plan A; Shock MRSA sepsis Pneumonia with MRSA & GNR GI bleeding Hypoxic respiratory failure Acute renal failure Lactic acidosis Thrombocytopenia P; change Linezolid to Vancomycin Continue Meropenem & Flagyl Poor prognosis Subjective ROS Limited/Unobtainable: Yes Allergies: Coded Allergies: CODEINE (Verified Allergy, Unknown, 11/15/16) Objective Vital Signs Last 24 Hour Vital Signs Date Time Temp Pulse Resp B/P (MAP) Pulse Ox O2 Delivery O2 Flow Rate FiO2 07/18/17 09:00 92 18 131/89 98 Non-Rebreather 07/18/17 08:35 104 40 50 07/18/17 08:00 97 07/18/17 08:00 97.4 101 16 115/66 Mechanical Ventilator 100 07/18/17 07:42 95 107/62 07/18/17 07:29 96 35 100 Mechanical Ventilator 50 07/18/17 07:12 100 37 50 07/18/17 07:08 94 31 100 Mechanical Ventilator 50 07/18/17 07:08 50 07/18/17 07:00 36 07/18/17 07:00 95 38 105/59 100 Mechanical Ventilator 50 07/18/17 06:30 95 38 97/56 100 Mechanical Ventilator 50 07/18/17 06:00 103 37 129/69 100 Mechanical Ventilator 50 07/18/17 06:00 36 07/18/17 06:00 129/69 07/18/17 05:11 98 35 50 07/18/17 05:00 97 37 119/76 100 Mechanical Ventilator 50 07/18/17 05:00 37 07/18/17 05:00 119/76 07/18/17 04:30 104 37 116/67 100 Mechanical Ventilator 50 07/18/17 04:00 98.1 108 38 104/62 100 Mechanical Ventilator 50 07/18/17 04:00 110 07/18/17 04:00 50 07/18/17 04:00 38 07/18/17 04:00 104/62 07/18/17 03:49 112/74 07/18/17 03:48 100 112/74 07/18/17 03:30 102 40 88/52 100 Mechanical Ventilator 50 07/18/17 03:27 102 40 100 Mechanical Ventilator 50 07/18/17 03:17 50 07/18/17 03:17 101 40 100 Mechanical Ventilator 50 07/18/17 03:13 97 37 50 07/18/17 03:00 97 38 111/67 100 Mechanical Ventilator 50 07/18/17 03:00 38 07/18/17 03:00 111/67 07/18/17 02:30 97 38 110/64 100 Mechanical Ventilator 50 07/18/17 02:00 38 07/18/17 02:00 101/48 07/18/17 02:00 101 38 101/48 100 Mechanical Ventilator 50 07/18/17 01:30 103 38 100/61 100 Mechanical Ventilator 50 07/18/17 01:20 102 39 50 07/18/17 01:00 32 07/18/17 01:00 107/60 07/18/17 01:00 104 36 107/60 100 Mechanical Ventilator 50 07/18/17 00:30 105 36 112/59 100 Mechanical Ventilator 50 07/18/17 00:06 101 98/67 07/18/17 00:00 97.9 102 36 98/67 100 Mechanical Ventilator 50 07/18/17 00:00 50 07/18/17 00:00 37 07/18/17 00:00 99/62 07/18/17 00:00 106 07/17/17 23:30 106 36 117/63 100 Mechanical Ventilator 50 07/17/17 23:24 50 07/17/17 23:15 106 36 100 Mechanical Ventilator 50 07/17/17 23:15 106 35 50 07/17/17 23:15 107 34 100 Mechanical Ventilator 50 07/17/17 23:00 104 33 110/70 100 Mechanical Ventilator 50 07/17/17 23:00 35 07/17/17 22:30 106 35 101/66 100 Mechanical Ventilator 50 07/17/17 22:00 106 35 101/66 100 Mechanical Ventilator 50 07/17/17 22:00 32 07/17/17 21:30 107 35 102/73 100 Mechanical Ventilator 50 07/17/17 21:04 36 07/17/17 21:00 30 07/17/17 21:00 106 34 99/70 100 Mechanical Ventilator 50 07/17/17 20:55 105 31 50 07/17/17 20:30 106 35 103/56 100 Mechanical Ventilator 50 07/17/17 20:29 103 108/74 07/17/17 20:00 104 35 108/74 100 Mechanical Ventilator 50 07/17/17 20:00 50 17 20:00 30 17 20:00 101 17 19:35 105 32 100 Mechanical Ventilator 50 17 19:30 97.9 103 34 87/59 100 Mechanical Ventilator 50 17 19:23 50 17 19:22 104 34 100 Mechanical Ventilator 50 17 19:20 105 36 50 17 19:00 33 17 18:45 107 30 133/68 100 Mechanical Ventilator 50 17 18:30 108 34 123/60 100 Mechanical Ventilator 50 17 18:15 101 32 107/68 100 Mechanical Ventilator 50 17 18:00 103 33 107/67 100 Mechanical Ventilator 50 17 17:45 101 32 118/61 100 Mechanical Ventilator 50 17 17:30 102 32 123/69 100 Mechanical Ventilator 50 17 17:15 101 32 126/62 100 Mechanical Ventilator 50 07/17/17 17:02 107 37 50 07/17/17 17:00 103 31 125/81 100 Mechanical Ventilator 50 17 16:48 102 112/78 17 16:45 103 33 99/69 100 Mechanical Ventilator 50 07/17/17 16:30 101 34 112/78 100 Mechanical Ventilator 50 17 16:23 98/58 17 16:15 103 32 98/58 100 Mechanical Ventilator 50 17 16:00 50 17 16:00 104 07/17/17 16:00 98.7 102 31 108/58 100 Mechanical Ventilator 50 07/17/17 15:45 104 31 106/68 100 Mechanical Ventilator 50 17 15:30 102 32 95/58 100 Mechanical Ventilator 50 17 15:27 104 38 50 17 15:15 102 31 114/68 100 Mechanical Ventilator 50 17 15:00 103 30 117/65 100 Mechanical Ventilator 50 17 14:45 105 30 109/60 100 Mechanical Ventilator 50 17 14:30 106 32 113/63 100 Mechanical Ventilator 50 17 14:15 109 29 121/81 100 Mechanical Ventilator 50 17 14:00 103 31 121/81 100 Mechanical Ventilator 50 12/6/17 13:45 105 31 114/75 100 Mechanical Ventilator 50 07/17/17 13:30 105 31 107/73 100 Mechanical Ventilator 50 07/17/17 13:15 105 32 116/67 100 Mechanical Ventilator 50 07/17/17 13:00 108 28 110/74 100 Mechanical Ventilator 50 07/17/17 12:45 107 31 110/74 100 Mechanical Ventilator 50 07/17/17 12:43 109 34 50 07/17/17 12:37 110 111/76 07/17/17 12:30 109 33 111/76 100 Mechanical Ventilator 50 07/17/17 12:15 105 31 104/62 100 Mechanical Ventilator 50 07/17/17 12:04 106 28 100 Endotracheal Tube 50.0 50 07/17/17 12:00 98.8 107 30 129/83 100 Mechanical Ventilator 50 07/17/17 12:00 50 07/17/17 12:00 108 07/17/17 11:55 107 33 100 Mechanical Ventilator 50 07/17/17 11:54 107 36 100 Mechanical Ventilator 50 07/17/17 11:51 106 30 50 07/17/17 11:45 105 30 112/76 100 Mechanical Ventilator 50 07/17/17 11:30 105 30 111/65 100 Mechanical Ventilator 50 07/17/17 11:15 105 31 113/71 100 Mechanical Ventilator 50 07/17/17 11:00 103 31 113/71 100 Mechanical Ventilator 50 07/17/17 10:45 103 30 113/76 100 Mechanical Ventilator 50 07/17/17 10:30 103 29 108/78 100 Mechanical Ventilator 50 07/17/17 10:15 103 30 112/74 100 Mechanical Ventilator 50 07/17/17 10:00 103 30 112/74 100 Mechanical Ventilator 50 07/17/17 09:45 103 30 113/76 100 Mechanical Ventilator 50 07/17/17 09:30 103 29 108/78 100 Mechanical Ventilator 50 Height (Feet): 5 Height (Inches): 9.00 Weight (Pounds): 183 HEENT: other - orally intubated, orogastric tube Respiratory/Chest: lungs clear, other - on ventilator, hicupps, Cardiovascular: tachycardia, other - RIJ line Abdomen: soft, non tender, other - gt IN PLCE Extremities: other - EDEMA OF LEGS Neurologic/Psychiatric: unresponsiveness Microbiology Date/Time Source Procedure Growth Status 07/16/17 21:00 Sputum Gram Stain - Final Resulted 07/16/17 21:00 Sputum Culture - Preliminary Gram Negative Bacillus 1 Resulted 07/15/17 17:00 Sputum Gram Stain - Final Resulted 07/15/17 17:00 Sputum Culture - Preliminary Staphylococcus Aureus Olga Albicans Resulted 07/15/17 17:00 Urine,Clean Catch Urine Culture - Preliminary NO GROWTH AFTER 24 HOURS Resulted Laboratory Tests Test 07/17/17 09:55 07/17/17 18:20 07/17/17 20:00 07/18/17 04:25 Arterial Blood pH 7.330 (7.350-7.450) Arterial Blood Partial Pressure CO2 34.8 mmHg (35.0-45.0) L Arterial Blood Partial Pressure O2 65.3 mmHg (75.0-100.0) L Arterial Blood HCO3 17.9 mmol/L (22.0-26.0) L Arterial Blood Oxygen Saturation 90.0 % (92.0-98.0) L Arterial Blood Base Excess -7.1 Aston Test Positive Lactic Acid Level 4.20 mmol/L (0.66-2.22) H 4.90 mmol/L (0.66-2.22) H Prothrombin Time 18.6 SEC (9.30-11.50) H 18.3 SEC (9.30-11.50) H Prothromb Time International Ratio 1.8 (0.9-1.1) H 1.7 (0.9-1.1) H Activated Partial Thromboplast Time 71 SEC (23-33) H 72 SEC (23-33) H White Blood Count 11.7 K/UL (4.8-10.8) H Red Blood Count 3.33 M/UL (4.70-6.10) L Hemoglobin 10.6 G/DL (14.2-18.0) L Hematocrit 31.0 % (42.0-52.0) L Mean Corpuscular Volume 93 FL (80-99) Mean Corpuscular Hemoglobin 31.9 PG (27.0-31.0) H Mean Corpuscular Hemoglobin Concent 34.3 G/DL (32.0-36.0) Red Cell Distribution Width 12.8 % (11.6-14.8) Platelet Count 37 K/UL (150-450) L Mean Platelet Volume 13.7 FL (6.5-10.1) H Neutrophils (%) (Auto) % (45.0-75.0) Lymphocytes (%) (Auto) % (20.0-45.0) Monocytes (%) (Auto) % (1.0-10.0) Eosinophils (%) (Auto) % (0.0-3.0) Basophils (%) (Auto) % (0.0-2.0) Differential Total Cells Counted 100 Neutrophils % (Manual) 76 % (45-75) H Lymphocytes % (Manual) 6 % (20-45) L Monocytes % (Manual) 6 % (1-10) Eosinophils % (Manual) 0 % (0-3) Basophils % (Manual) 0 % (0-2) Band Neutrophils 12 % (0-8) H Platelet Estimate Decreased L Platelet Morphology Normal Hypochromasia 1+ Sodium Level 135 MMOL/L (136-145) L Potassium Level 3.4 MMOL/L (3.5-5.1) L Chloride Level 103 MMOL/L (98-107) Carbon Dioxide Level 21 MMOL/L (21-32) Anion Gap 11 mmol/L (5-15) Blood Urea Nitrogen 27 mg/dL (7-18) H Creatinine 1.9 MG/DL (0.55-1.30) H Estimat Glomerular Filtration Rate 43.5 mL/min (>60) Glucose Level 87 MG/DL (74-106) Calcium Level 7.3 MG/DL (8.5-10.1) L Total Bilirubin 3.6 MG/DL (0.2-1.0) H Direct Bilirubin 2.7 MG/DL (0.0-0.3) H Aspartate Amino Transf (AST/SGOT) 77 U/L (15-37) H Alanine Aminotransferase (ALT/SGPT) 41 U/L (12-78) Alkaline Phosphatase 128 U/L (46-116) H Total Protein 4.8 G/DL (6.4-8.2) L Albumin 2.0 G/DL (3.4-5.0) L Globulin 2.8 g/dL Albumin/Globulin Ratio 0.7 (1.0-2.7) L Current Medications Medications (Trade) Dose Ordered Sig/Romelia Route PRN Reason Start Time Stop Time Status Last Admin Dose Admin Acetaminophen (Tylenol) 650 mg Q4H PRN ORAL Fever/Headache/Mild Pain 07/14/17 20:00 08/13/17 19:59 07/15/17 22:43 Acetaminophen (Tylenol) 650 mg Q4H PRN ORAL Mild Pain/Temp > 100.5 07/14/17 20:00 08/13/17 19:59 Albuterol Sulfate (Proventil) 2.5 mg Q4HRT HHN 07/14/17 23:00 07/19/17 22:59 07/18/17 07:11 Carbamazepine (TEGretol) 250 mg Q12HR GT 07/14/17 21:00 08/13/17 20:59 07/18/17 09:09 Chlorhexidine Gluconate (Natalie-Hex 2%) 1 applic DAILY@2000 TOPIC 07/16/17 20:00 08/15/17 19:59 07/17/17 19:57 Dextrose/Sodium Chloride 1,000 ml @ 100 mls/hr Q10H IV 07/17/17 10:00 08/16/17 09:59 07/18/17 05:46 Lamotrigine (LaMICtal) 300 mg DAILY GT 07/15/17 09:00 08/14/17 08:59 07/18/17 09:08 Lansoprazole (Prevacid) 30 mg Q12HR GT 07/15/17 13:00 08/14/17 12:59 07/18/17 09:09 Levetiracetam (Keppra) 1,500 mg Q12HR GT 07/16/17 21:00 08/15/17 20:59 07/18/17 09:08 Linezolid 300 ml @ 300 mls/hr Q12HR IVPB 07/17/17 21:00 07/24/17 20:59 07/17/17 21:05 Meropenem 1 gm/ Sodium Chloride 55 ml @ 110 mls/hr Q12HR IVPB 07/16/17 11:30 07/21/17 11:29 07/18/17 09:09 Metronidazole (Flagyl) 250 mg Q8HR GT 07/16/17 12:30 07/23/17 12:29 07/18/17 05:46 Norepinephrine Bitartrate 4 mg/ Dextrose 250 ml @ 0 mls/hr Q24H IV 07/15/17 11:15 08/14/17 11:14 07/18/17 03:49 Phenylephrine HCl 50 mg/Dextrose 250 ml @ 0 mls/hr Q24H IV 07/15/17 11:15 08/14/17 11:14 07/18/17 07:42 Potassium Chloride 100 ml @ 50 mls/hr ONCE ONCE IVPB 07/18/17 09:15 07/18/17 11:14 UNV Propofol 100 ml @ 0 mls/hr Q24H IV 07/16/17 20:45 07/18/17 20:44 07/17/17 21:04 Propofol 100 ml @ 0 mls/hr Q24H IV 07/18/17 09:15 07/20/17 09:14 UNV ANDRZEJ JAMES Jul 18, 2017 09:21
[2017-07-18] MEDS ORDERED: Vancomycin 1.5 GM/D5W 250ML IVPB ONE (10:30)
--- NOTE | 2017-07-18 11:00 | Pre-Procedure Note/Attestation ---
Pre-Procedure Note/Attestation Complete Prior to Procedure Planned Procedure: not applicable Procedure Narrative: egd Indications for Procedure Pre-Operative Diagnosis: gib Attestation I attest that I discussed the nature of the procedure; its benefits; risks and complications; and alternatives (and the risks and benefits of such alternatives ), prior to the procedure, with the patient (or the patient's legal client care representative). I attest that, if there was a reasonable possibility of needing a blood transfusion, the patient (or the patient's legal client care representative) was given the [facility] standardized written summary, pursuant to the [place] Blood Safety Act ([place] [facility] and Safety Code # 1645, as amended). I attest that I re-evaluated the patient just prior to the surgery and that there has been no change in the patient's H&P, except as documented below: MANNY KAUR Jul 18, 2017 11:00
--- NOTE | 2017-07-18 12:12 | Diagnostic Imaging Report ---
Indication: Abdominal pain Technique: Supine view of the abdomen Comparison: 11/16/2016 Findings: There is a nasogastric tube in place, tip projected at the level gastric antrum. There is a gastrostomy in place, tip position indeterminate in the absence of contrast injection. Metallic densities adjacent to the gastrostomy may reflect T-fasteners related to prior gastropexy for the gastrostomy placement. There is absence of bowel gas except for a small amount of bubbly stool in the rectum. Radiopaque gallstones are seen in the right upper quadrant Impression: Findings as noted. No definite acute abnormality
--- NOTE | 2017-07-18 12:28 | General Progress Note ---
Assessment/Plan Assessment/Plan Assessment - UGIB - shock - severe thrombocytopenia - presumed due to DIC - lactic acidosis - resp failure - renal failure - mildly abnormal LFT, possibly duet to hypoperfusion - poor prognosis Recommendations - platelet transfusion - family to have meeting today at noon re level of care - supportive care / pressors - transfuse PRN - PPI Subjective Allergies: Coded Allergies: CODEINE (Verified Allergy, Unknown, 11/15/16) Subjective Above noted doing poorly on two pressors had some more dark GT aspirate this am Platelets down to 37 --> Endoscopy had to be cancelled/postponed pending platelet transfusion d/w DTR at length d/w RN Platelet transfusion ordered KUB not yet done -d/w radiology to do ARTIE Objective Last 24 Hour Vital Signs Date Time Temp Pulse Resp B/P (MAP) Pulse Ox O2 Delivery O2 Flow Rate FiO2 07/18/17 12:00 97.7 97 133/98 Mechanical Ventilator 07/18/17 11:30 90 130/89 07/18/17 11:00 90 18 133/89 96 07/18/17 11:00 18 07/18/17 10:58 99 31 100 Mechanical Ventilator 50 07/18/17 10:51 103 34 100 Mechanical Ventilator 50 07/18/17 10:51 50 07/18/17 10:48 103 34 50 07/18/17 10:00 20 07/18/17 10:00 100 20 108/49 100 Mechanical Ventilator 07/18/17 09:00 16 07/18/17 09:00 16 07/18/17 09:00 16 07/18/17 09:00 92 18 131/89 98 Non-Rebreather 07/18/17 08:35 104 40 50 07/18/17 08:00 97 07/18/17 08:00 97.4 101 16 115/66 Mechanical Ventilator 100 07/18/17 08:00 16 07/18/17 08:00 16 07/18/17 08:00 16 07/18/17 07:42 95 107/62 07/18/17 07:29 96 35 100 Mechanical Ventilator 50 07/18/17 07:12 100 37 50 07/18/17 07:08 94 31 100 Mechanical Ventilator 50 07/18/17 07:08 50 07/18/17 07:00 36 07/18/17 07:00 95 38 105/59 100 Mechanical Ventilator 50 07/18/17 06:30 95 38 97/56 100 Mechanical Ventilator 50 07/18/17 06:00 103 37 129/69 100 Mechanical Ventilator 50 07/18/17 06:00 36 07/18/17 06:00 129/69 07/18/17 05:11 98 35 50 07/18/17 05:00 97 37 119/76 100 Mechanical Ventilator 50 07/18/17 05:00 37 07/18/17 05:00 119/76 07/18/17 04:30 104 37 116/67 100 Mechanical Ventilator 50 07/18/17 04:00 98.1 108 38 104/62 100 Mechanical Ventilator 50 07/18/17 04:00 110 07/18/17 04:00 50 07/18/17 04:00 38 07/18/17 04:00 104/62 07/18/17 03:49 112/74 07/18/17 03:48 100 112/74 07/18/17 03:30 102 40 88/52 100 Mechanical Ventilator 50 07/18/17 03:27 102 40 100 Mechanical Ventilator 50 07/18/17 03:17 50 07/18/17 03:17 101 40 100 Mechanical Ventilator 50 07/18/17 03:13 97 37 50 07/18/17 03:00 97 38 111/67 100 Mechanical Ventilator 50 07/18/17 03:00 38 07/18/17 03:00 111/67 07/18/17 02:30 97 38 110/64 100 Mechanical Ventilator 50 07/18/17 02:00 38 07/18/17 02:00 101/48 07/18/17 02:00 101 38 101/48 100 Mechanical Ventilator 50 07/18/17 01:30 103 38 100/61 100 Mechanical Ventilator 50 07/18/17 01:20 102 39 50 07/18/17 01:00 32 07/18/17 01:00 107/60 07/18/17 01:00 104 36 107/60 100 Mechanical Ventilator 50 07/18/17 00:30 105 36 112/59 100 Mechanical Ventilator 50 07/18/17 00:06 101 98/67 07/18/17 00:00 97.9 102 36 98/67 100 Mechanical Ventilator 50 07/18/17 00:00 50 07/18/17 00:00 37 07/18/17 00:00 99/62 12/7/17 00:00 106 07/17/17 23:30 106 36 117/63 100 Mechanical Ventilator 50 07/17/17 23:24 50 07/17/17 23:15 106 36 100 Mechanical Ventilator 50 07/17/17 23:15 106 35 50 07/17/17 23:15 107 34 100 Mechanical Ventilator 50 07/17/17 23:00 104 33 110/70 100 Mechanical Ventilator 50 07/17/17 23:00 35 07/17/17 22:30 106 35 101/66 100 Mechanical Ventilator 50 07/17/17 22:00 106 35 101/66 100 Mechanical Ventilator 50 07/17/17 22:00 32 07/17/17 21:30 107 35 102/73 100 Mechanical Ventilator 50 07/17/17 21:04 36 07/17/17 21:00 30 07/17/17 21:00 106 34 99/70 100 Mechanical Ventilator 50 07/17/17 20:55 105 31 50 07/17/17 20:30 106 35 103/56 100 Mechanical Ventilator 50 07/17/17 20:29 103 108/74 07/17/17 20:00 104 35 108/74 100 Mechanical Ventilator 50 07/17/17 20:00 50 07/17/17 20:00 30 07/17/17 20:00 101 07/17/17 19:35 105 32 100 Mechanical Ventilator 50 07/17/17 19:30 97.9 103 34 87/59 100 Mechanical Ventilator 50 07/17/17 19:23 50 07/17/17 19:22 104 34 100 Mechanical Ventilator 50 07/17/17 19:20 105 36 50 07/17/17 19:00 33 07/17/17 18:45 107 30 133/68 100 Mechanical Ventilator 50 07/17/17 18:30 108 34 123/60 100 Mechanical Ventilator 50 07/17/17 18:15 101 32 107/68 100 Mechanical Ventilator 50 07/17/17 18:00 103 33 107/67 100 Mechanical Ventilator 50 07/17/17 17:45 101 32 118/61 100 Mechanical Ventilator 50 07/17/17 17:30 102 32 123/69 100 Mechanical Ventilator 50 07/17/17 17:15 101 32 126/62 100 Mechanical Ventilator 50 07/17/17 17:02 107 37 50 07/17/17 17:00 103 31 125/81 100 Mechanical Ventilator 50 07/17/17 16:48 102 112/78 07/17/17 16:45 103 33 99/69 100 Mechanical Ventilator 50 07/17/17 16:30 101 34 112/78 100 Mechanical Ventilator 50 07/17/17 16:23 98/58 07/17/17 16:15 103 32 98/58 100 Mechanical Ventilator 50 07/17/17 16:00 50 07/17/17 16:00 104 07/17/17 16:00 98.7 102 31 108/58 100 Mechanical Ventilator 50 07/17/17 15:45 104 31 106/68 100 Mechanical Ventilator 50 07/17/17 15:30 102 32 95/58 100 Mechanical Ventilator 50 07/17/17 15:27 104 38 50 07/17/17 15:15 102 31 114/68 100 Mechanical Ventilator 50 07/17/17 15:00 103 30 117/65 100 Mechanical Ventilator 50 07/17/17 14:45 105 30 109/60 100 Mechanical Ventilator 50 07/17/17 14:30 106 32 113/63 100 Mechanical Ventilator 50 07/17/17 14:15 109 29 121/81 100 Mechanical Ventilator 50 07/17/17 14:00 103 31 121/81 100 Mechanical Ventilator 50 07/17/17 13:45 105 31 114/75 100 Mechanical Ventilator 50 07/17/17 13:30 105 31 107/73 100 Mechanical Ventilator 50 07/17/17 13:15 105 32 116/67 100 Mechanical Ventilator 50 07/17/17 13:00 108 28 110/74 100 Mechanical Ventilator 50 07/17/17 12:45 107 31 110/74 100 Mechanical Ventilator 50 07/17/17 12:43 109 34 50 07/17/17 12:37 110 111/76 07/17/17 12:30 109 33 111/76 100 Mechanical Ventilator 50 Intake and Output 07/18/17 07/19/17 19:00 07:00 Intake Total 919.090 ml Balance 919.090 ml Intake Free Water 100 ml IV Total 414.090 ml Other 405 ml Laboratory Tests 07/17/17 18:20: Lactic Acid Level 4.20H 07/17/17 20:00: Prothrombin Time 18.6H, Prothromb Time International Ratio 1.8H, Activated Partial Thromboplast Time 71H 07/18/17 04:25: Lactic Acid Level 4.90H, Prothrombin Time 18.3H, Prothromb Time International Ratio 1.7H, Activated Partial Thromboplast Time 72H, White Blood Count 11.7H, Red Blood Count 3.33L, Hemoglobin 10.6L, Hematocrit 31.0L, Mean Corpuscular Volume 93, Mean Corpuscular Hemoglobin 31.9H, Mean Corpuscular Hemoglobin Concent 34.3, Red Cell Distribution Width 12.8, Platelet Count 37L, Mean Platelet Volume 13.7H, Neutrophils (%) (Auto) , Lymphocytes (%) (Auto) , Monocytes (%) (Auto) , Eosinophils (%) (Auto) , Basophils (%) (Auto) , Differential Total Cells Counted 100, Neutrophils % (Manual) 76H, Lymphocytes % (Manual) 6L, Monocytes % (Manual) 6, Eosinophils % (Manual) 0, Basophils % ( Manual) 0, Band Neutrophils 12H, Platelet Estimate DecreasedL, Platelet Morphology Normal, Hypochromasia 1+, Sodium Level 135L, Potassium Level 3.4L, Chloride Level 103, Carbon Dioxide Level 21, Anion Gap 11, Blood Urea Nitrogen 27H, Creatinine 1.9H, Estimat Glomerular Filtration Rate 43.5, Glucose Level 87 , Calcium Level 7.3L, Total Bilirubin 3.6H, Direct Bilirubin 2.7H, Aspartate Amino Transf (AST/SGOT) 77H, Alanine Aminotransferase (ALT/SGPT) 41, Alkaline Phosphatase 128H, Total Protein 4.8L, Albumin 2.0L, Globulin 2.8, Albumin/ Globulin Ratio 0.7L, Triglycerides Level 90 07/18/17 09:20: Lactic Acid Level 5.20H Height (Feet): 5 Height (Inches): 9.00 Weight (Pounds): 183 Objective WDWN AA man NCAT supple Coarse BS RR abd soft, (+) GT trace edema obtunded MANNY KAUR Jul 18, 2017 12:28
[2017-07-18] MEDS ORDERED: D5NS 1000ml IV ONE (15:57)
--- NOTE | 2017-07-18 16:14 | Cardiology Report ---
APPROVED REPORT EXAM: Two-dimensional and M-mode echocardiogram with Doppler and color Doppler. INDICATION Endocarditis M-Mode DIMENSIONS IVSd0.9 (0.7-1.1cm)Left Atrium (MM)4.6 (1.6-4.0cm) LVDd4.5 (3.5-5.6cm)Aortic Root2.3 (2.0-3.7cm) PWd1.1 (0.7-1.1cm)Aortic Cusp Exc.1.9 (1.5-2.0cm) LVDs2.5 (2.5-4.0cm) PWs1.5 cm Technically difficult study due to poor acoustical windows and patients position. Normal left ventricular chamber size, systolic function and wall motion to extent visualized. Left ventricular ejection fraction estimated to be 60-65%. Study quality precludes accurate assessment of regional wall motion. Mild left ventricular hypertrophy. No evidence of pericardial effusion. Mild bi-atrial enlargement. Right ventricular chamber size is within normal limits. Mild focal aortic valve sclerosis with adequate cusp excursion. Mildly thickened mitral valve leaflets with normal excursion. Mild mitral annulus and aortic root calcification. Pulmonic valve not well visualized. Normal tricuspid valve structure. IVC was not obtained due to GI tube. A color flow and spectral Doppler study was performed and revealed: No aortic insufficiency. Mild mitral regurgitation. Mitral inflow velocities indicates possible borderline pseudo normalization pattern implying moderately elevated left atrial pressure (Grade II ). Mild tricuspid regurgitation. Tricuspid systolic velocities suggests peak right ventricular systolic pressure of 31 mmHg. No pulmonic regurgitation present.
[2017-07-18 18:54] LABS: REFLEX LACTIC ACID YES OR NO YES
[2017-07-18] MEDS: Dyna-Hex 2% Top Sol 2oz TOPIC SCH (19:49)
[2017-07-19] VITALS (84 sets, daily range): BP systolic 74–121; BP diastolic 45–89
[2017-07-19] MEDS: D5NS 1,000 ML IV SCH ×3 (02:04→21:03)
[2017-07-19] MEDS: Phenylephrine 50 MG in D5W 245 ML IV SCH ×3 (02:34→22:22)
[2017-07-19] MEDS: Albuterol ud Inhalation HHN SCH ×5 (03:01→19:09)
[2017-07-19] MEDS: metroNIDAZOLE 250mg tab GT SCH ×3 (05:46→21:01)
[2017-07-19 05:58] LABS: REFLEX LACTIC ACID YES OR NO YES
--- NOTE | 2017-07-19 08:47 | Critical Care Progress Note ---
Assessment/Plan Assessment/Plan IMPRESSION sepsis elevated lactic acid respiratory failure ho alcholic liver disease seizure disorder acute renal failure possible GIB coffee ground emesis MRSA sepsis polymicrobial infection PLAN NGT ventilator management follow up ABG monitor PH and adjust vent pressors and taper- still required seizure meds IV antibiotics noted ID evaluation GI evaluation- still NPO- hope to resume feeds assess mental status off diprivan off anticoag for now d/w family - discussing advance directives guarded hope to resume feeds Critical Care - Subjective Interval Events: seems more stable on diprivan ROS Limited/Unobtainable: Yes I&O: Intake and Output 07/19/17 07/20/17 19:00 07:00 Output Total 35 ml Balance -35 ml Output Urine Total 35 ml Critical Care - Objective CXR: bilateral infiltrates ET-Tube: 7.5 ET Position: 23 Last 24 Hour Vital Signs Date Time Temp Pulse Resp B/P (MAP) Pulse Ox O2 Delivery O2 Flow Rate FiO2 07/19/17 08:00 100 07/19/17 07:47 45 07/19/17 07:17 98 28 100 Mechanical Ventilator 45 07/19/17 07:06 97 22 100 Mechanical Ventilator 45 07/19/17 07:06 97 22 45 07/19/17 07:00 100 28 93/61 100 Mechanical Ventilator 45 07/19/17 07:00 30 07/19/17 06:45 96 28 96/60 100 Mechanical Ventilator 45 07/19/17 06:45 29 07/19/17 06:38 32 07/19/17 06:30 30 07/19/17 06:30 98 30 100/68 100 Mechanical Ventilator 45 07/19/17 06:15 98 29 93/57 100 Mechanical Ventilator 45 07/19/17 06:15 29 07/19/17 06:00 29 07/19/17 06:00 99 30 110/66 100 Mechanical Ventilator 45 07/19/17 05:45 100 29 98/58 100 Mechanical Ventilator 45 07/19/17 05:30 100 29 117/68 100 Mechanical Ventilator 45 07/19/17 05:18 97 28 45 07/19/17 05:15 97 29 85/58 100 Mechanical Ventilator 45 07/19/17 05:00 99 31 106/69 100 Mechanical Ventilator 45 07/19/17 05:00 30 07/19/17 04:45 99 31 113/68 100 Mechanical Ventilator 45 07/19/17 04:30 106 34 98/59 100 Mechanical Ventilator 45 07/19/17 04:15 98 36 103/66 100 Mechanical Ventilator 45 07/19/17 04:00 92 07/19/17 04:00 99.3 94 33 90/53 100 Mechanical Ventilator 45 07/19/17 04:00 45 07/19/17 04:00 28 07/19/17 03:45 29 07/19/17 03:45 96 31 104/63 100 Mechanical Ventilator 45 07/19/17 03:30 96 31 106/62 100 Mechanical Ventilator 45 07/19/17 03:30 31 07/19/17 03:15 96 31 103/67 100 Mechanical Ventilator 45 07/19/17 03:15 29 07/19/17 03:11 89 30 100 Mechanical Ventilator 45 07/19/17 03:00 45 07/19/17 03:00 89 30 87/59 100 Mechanical Ventilator 45 07/19/17 03:00 101 31 100 Mechanical Ventilator 45 07/19/17 03:00 30 07/19/17 03:00 101 31 45 07/19/17 02:45 101 31 121/73 100 Mechanical Ventilator 45 07/19/17 02:34 97 95/60 07/19/17 02:30 99 34 74/45 99 Mechanical Ventilator 45 07/19/17 02:15 96 34 89/53 100 Mechanical Ventilator 45 07/19/17 02:00 30 07/19/17 02:00 89 34 100/59 100 Mechanical Ventilator 45 07/19/17 01:45 96 32 111/65 100 Mechanical Ventilator 45 07/19/17 01:30 96 32 114/68 100 Mechanical Ventilator 45 07/19/17 01:15 94 35 101/64 100 Mechanical Ventilator 45 07/19/17 01:14 96 31 45 07/19/17 01:00 30 07/19/17 01:00 96 30 111/68 100 Mechanical Ventilator 45 07/19/17 00:45 95 30 94/56 100 Mechanical Ventilator 45 07/19/17 00:30 95 31 89/56 100 Mechanical Ventilator 45 07/19/17 00:15 95 32 112/68 100 Mechanical Ventilator 45 07/19/17 00:00 96 07/19/17 00:00 96 32 112/68 100 Mechanical Ventilator 45 07/19/17 00:00 30 07/19/17 00:00 45 07/18/17 23:45 95 31 100/58 100 Mechanical Ventilator 45 07/18/17 23:34 31 07/18/17 23:30 95 31 99/58 100 Mechanical Ventilator 50 07/18/17 23:15 97 30 99/58 100 Mechanical Ventilator 50 07/18/17 23:00 94 31 111/65 100 Mechanical Ventilator 50 07/18/17 23:00 28 07/18/17 22:59 100 32 100 Mechanical Ventilator 45 07/18/17 22:51 45 07/18/17 22:51 93 31 100 Mechanical Ventilator 45 07/18/17 22:51 89 31 45 07/18/17 22:46 92 99/60 07/18/17 22:45 91 24 84/56 100 Mechanical Ventilator 50 07/18/17 22:30 93 31 99/60 100 Mechanical Ventilator 50 07/18/17 22:15 96 32 111/67 100 Mechanical Ventilator 50 07/18/17 22:00 94 32 91/54 100 Mechanical Ventilator 50 07/18/17 22:00 30 07/18/17 21:45 95 30 89/56 100 Mechanical Ventilator 50 07/18/17 21:30 94 30 91/57 100 Mechanical Ventilator 50 07/18/17 21:30 93 32 45 07/18/17 21:15 93 30 109/65 100 Mechanical Ventilator 50 07/18/17 21:00 95 28 108/66 100 Mechanical Ventilator 50 07/18/17 21:00 30 07/18/17 20:45 95 28 108/66 100 Mechanical Ventilator 50 07/18/17 20:30 96 27 112/66 100 Mechanical Ventilator 50 07/18/17 20:15 95 25 109/67 100 Mechanical Ventilator 50 07/18/17 20:00 96 30 115/75 100 Mechanical Ventilator 50 07/18/17 20:00 30 07/18/17 20:00 94 07/18/17 20:00 45 07/18/17 19:45 94 30 113/67 100 Mechanical Ventilator 50 07/18/17 19:30 94 30 101/67 100 Mechanical Ventilator 50 07/18/17 19:16 96 132/72 07/18/17 19:07 99 33 100 Mechanical Ventilator 50 07/18/17 19:00 92 26 132/72 100 Mechanical Ventilator 50 07/18/17 19:00 26 07/18/17 19:00 132/72 07/18/17 18:58 97 33 100 Mechanical Ventilator 50 07/18/17 18:58 50 07/18/17 18:58 97 33 50 07/18/17 18:45 97 32 132/72 100 Mechanical Ventilator 50 07/18/17 18:30 94 33 111/73 100 Mechanical Ventilator 50 07/18/17 18:15 97 32 97/56 100 Mechanical Ventilator 50 07/18/17 18:00 97 31 115/72 100 Mechanical Ventilator 50 07/18/17 18:00 28 07/18/17 18:00 115/72 07/18/17 17:45 98 30 116/72 100 Mechanical Ventilator 50 07/18/17 17:30 96 30 109/69 100 Mechanical Ventilator 50 07/18/17 17:15 94 31 111/70 100 Mechanical Ventilator 50 07/18/17 17:00 98 33 50 07/18/17 17:00 97 31 117/69 100 Mechanical Ventilator 50 07/18/17 17:00 29 07/18/17 17:00 122/74 07/18/17 16:45 99 31 122/74 100 Mechanical Ventilator 50 07/18/17 16:30 100 30 117/71 100 Mechanical Ventilator 50 07/18/17 16:15 101 31 117/75 100 Mechanical Ventilator 50 07/18/17 16:00 105 07/18/17 16:00 99.5 100 30 119/74 100 Mechanical Ventilator 50 07/18/17 16:00 26 07/18/17 16:00 119/74 07/18/17 16:00 50 07/18/17 15:45 106 33 132/82 100 Mechanical Ventilator 50 07/18/17 15:44 100 29 100 Mechanical Ventilator 50 07/18/17 15:42 50 07/18/17 15:42 100 36 100 Mechanical Ventilator 50 07/18/17 15:33 101 102/63 07/18/17 15:32 102/63 07/18/17 15:31 16 07/18/17 15:30 102 32 133/80 100 Mechanical Ventilator 50 07/18/17 15:28 101 29 50 07/18/17 15:15 103 33 139/79 100 Mechanical Ventilator 50 07/18/17 15:00 102 16 118/72 100 Mechanical Ventilator 07/18/17 15:00 16 07/18/17 14:45 103 34 120/71 100 Mechanical Ventilator 50 07/18/17 14:30 102 32 104/65 100 Mechanical Ventilator 50 07/18/17 14:15 101 33 114/69 100 Mechanical Ventilator 50 07/18/17 14:00 99 16 104/66 100 Mechanical Ventilator 07/18/17 14:00 16 07/18/17 13:45 103 33 111/66 100 Mechanical Ventilator 50 07/18/17 13:30 104 34 102/60 100 Mechanical Ventilator 50 07/18/17 13:15 105 34 93/66 100 Mechanical Ventilator 50 07/18/17 13:11 106 38 50 07/18/17 13:00 103 16 102/60 100 Mechanical Ventilator 07/18/17 13:00 16 07/18/17 12:45 106 35 113/64 100 Mechanical Ventilator 50 07/18/17 12:30 105 34 106/65 100 Mechanical Ventilator 50 07/18/17 12:15 105 34 106/67 100 Mechanical Ventilator 50 07/18/17 12:00 106 07/18/17 12:00 18 07/18/17 12:00 97.7 97 133/98 Mechanical Ventilator 07/18/17 11:45 104 35 116/71 100 Mechanical Ventilator 50 07/18/17 11:30 90 130/89 07/18/17 11:30 105 34 113/68 100 Mechanical Ventilator 50 07/18/17 11:15 104 33 112/66 100 Mechanical Ventilator 50 07/18/17 11:00 90 18 133/89 96 07/18/17 11:00 18 07/18/17 10:58 99 31 100 Mechanical Ventilator 50 07/18/17 10:51 103 34 100 Mechanical Ventilator 50 07/18/17 10:51 50 07/18/17 10:48 103 34 50 07/18/17 10:45 103 33 80/54 100 Mechanical Ventilator 50 07/18/17 10:30 103 34 141/104 100 Mechanical Ventilator 50 07/18/17 10:15 101 33 111/65 100 Mechanical Ventilator 50 07/18/17 10:00 20 07/18/17 10:00 100 20 108/49 100 Mechanical Ventilator 07/18/17 09:45 101 34 108/49 100 Mechanical Ventilator 50 07/18/17 09:30 101 34 101/67 100 Mechanical Ventilator 50 07/18/17 09:15 99 34 114/76 100 Mechanical Ventilator 50 07/18/17 09:00 16 07/18/17 09:00 16 07/18/17 09:00 16 07/18/17 09:00 92 18 131/89 98 Non-Rebreather Labs: Labs Test 07/16/17 08:56 07/16/17 10:50 07/16/17 19:15 07/17/17 05:00 Arterial Blood pH 7.272 (7.350-7.450) Arterial Blood Partial Pressure CO2 34.3 mmHg (35.0-45.0) Arterial Blood Partial Pressure O2 64.1 mmHg (75.0-100.0) Arterial Blood HCO3 15.5 mmol/L (22.0-26.0) Arterial Blood Oxygen Saturation 90.2 % (92.0-98.0) Arterial Blood Base Excess -10.5 Aston Test Positive Lactic Acid Level 5.20 mmol/L (0.66-2.22) 4.30 mmol/L (0.66-2.22) 4.50 mmol/L (0.66-2.22) White Blood Count 22.0 K/UL (4.8-10.8) Red Blood Count 3.75 M/UL (4.70-6.10) Hemoglobin 12.0 G/DL (14.2-18.0) Hematocrit 35.6 % (42.0-52.0) Mean Corpuscular Volume 95 FL (80-99) Mean Corpuscular Hemoglobin 31.9 PG (27.0-31.0) Mean Corpuscular Hemoglobin Concent 33.7 G/DL (32.0-36.0) Red Cell Distribution Width 13.1 % (11.6-14.8) Platelet Count 60 K/UL (150-450) Mean Platelet Volume 10.4 FL (6.5-10.1) Neutrophils (%) (Auto) % (45.0-75.0) Lymphocytes (%) (Auto) % (20.0-45.0) Monocytes (%) (Auto) % (1.0-10.0) Eosinophils (%) (Auto) % (0.0-3.0) Basophils (%) (Auto) % (0.0-2.0) Differential Total Cells Counted 100 Neutrophils % (Manual) 75 % (45-75) Lymphocytes % (Manual) 3 % (20-45) Monocytes % (Manual) 3 % (1-10) Eosinophils % (Manual) 0 % (0-3) Basophils % (Manual) 0 % (0-2) Band Neutrophils 19 % (0-8) Platelet Estimate Decreased Platelet Morphology Normal Red Blood Cell Morphology Normal Sodium Level 126 MMOL/L (136-145) Potassium Level 3.9 MMOL/L (3.5-5.1) Chloride Level 96 MMOL/L (98-107) Carbon Dioxide Level 17 MMOL/L (21-32) Anion Gap 13 mmol/L (5-15) Blood Urea Nitrogen 33 mg/dL (7-18) Creatinine 2.5 MG/DL (0.55-1.30) Estimat Glomerular Filtration Rate 31.6 mL/min (>60) Glucose Level 99 MG/DL (74-106) Calcium Level 7.1 MG/DL (8.5-10.1) Test 07/17/17 08:05 07/17/17 09:55 07/17/17 18:20 07/17/17 20:00 Lactic Acid Level 4.20 mmol/L (0.66-2.22) 4.20 mmol/L (0.66-2.22) Arterial Blood pH 7.330 (7.350-7.450) Arterial Blood Partial Pressure CO2 34.8 mmHg (35.0-45.0) Arterial Blood Partial Pressure O2 65.3 mmHg (75.0-100.0) Arterial Blood HCO3 17.9 mmol/L (22.0-26.0) Arterial Blood Oxygen Saturation 90.0 % (92.0-98.0) Arterial Blood Base Excess -7.1 Aston Test Positive Prothrombin Time 18.6 SEC (9.30-11.50) Prothromb Time International Ratio 1.8 (0.9-1.1) Activated Partial Thromboplast Time 71 SEC (23-33) Test 07/18/17 04:25 07/18/17 09:20 07/18/17 18:10 07/19/17 04:20 White Blood Count 11.7 K/UL (4.8-10.8) Red Blood Count 3.33 M/UL (4.70-6.10) Hemoglobin 10.6 G/DL (14.2-18.0) Hematocrit 31.0 % (42.0-52.0) Mean Corpuscular Volume 93 FL (80-99) Mean Corpuscular Hemoglobin 31.9 PG (27.0-31.0) Mean Corpuscular Hemoglobin Concent 34.3 G/DL (32.0-36.0) Red Cell Distribution Width 12.8 % (11.6-14.8) Platelet Count 37 K/UL (150-450) Mean Platelet Volume 13.7 FL (6.5-10.1) Neutrophils (%) (Auto) % (45.0-75.0) Lymphocytes (%) (Auto) % (20.0-45.0) Monocytes (%) (Auto) % (1.0-10.0) Eosinophils (%) (Auto) % (0.0-3.0) Basophils (%) (Auto) % (0.0-2.0) Differential Total Cells Counted 100 Neutrophils % (Manual) 76 % (45-75) Lymphocytes % (Manual) 6 % (20-45) Monocytes % (Manual) 6 % (1-10) Eosinophils % (Manual) 0 % (0-3) Basophils % (Manual) 0 % (0-2) Band Neutrophils 12 % (0-8) Platelet Estimate Decreased Platelet Morphology Normal Hypochromasia 1+ Prothrombin Time 18.3 SEC (9.30-11.50) Prothromb Time International Ratio 1.7 (0.9-1.1) Activated Partial Thromboplast Time 72 SEC (23-33) Sodium Level 135 MMOL/L (136-145) Potassium Level 3.4 MMOL/L (3.5-5.1) Chloride Level 103 MMOL/L (98-107) Carbon Dioxide Level 21 MMOL/L (21-32) Anion Gap 11 mmol/L (5-15) Blood Urea Nitrogen 27 mg/dL (7-18) Creatinine 1.9 MG/DL (0.55-1.30) Estimat Glomerular Filtration Rate 43.5 mL/min (>60) Glucose Level 87 MG/DL (74-106) Lactic Acid Level 4.90 mmol/L (0.66-2.22) 5.20 mmol/L (0.66-2.22) 4.60 mmol/L (0.66-2.22) 3.90 mmol/L (0.66-2.22) Calcium Level 7.3 MG/DL (8.5-10.1) Total Bilirubin 3.6 MG/DL (0.2-1.0) Direct Bilirubin 2.7 MG/DL (0.0-0.3) Aspartate Amino Transf (AST/SGOT) 77 U/L (15-37) Alanine Aminotransferase (ALT/SGPT) 41 U/L (12-78) Alkaline Phosphatase 128 U/L (46-116) Total Protein 4.8 G/DL (6.4-8.2) Albumin 2.0 G/DL (3.4-5.0) Globulin 2.8 g/dL Albumin/Globulin Ratio 0.7 (1.0-2.7) Triglycerides Level 90 MG/DL (30-150) 84 MG/DL (30-150) Objective: WDWN very ill intubated clear breath sounds bilaterally without rhonchi or wheeze [id number] mildly tachy without MRG NABS nontender no HSM no CC some edema diffusely reduced LOC Micro: Microbiology Date/Time Source Procedure Growth Status 07/16/17 21:00 Sputum Gram Stain - Final Resulted 07/16/17 21:00 Sputum Culture - Preliminary Klebsiella Pneumoniae Olga Albicans Usual Upper Respiratory [place] Resulted EUSEBIO CRESPO Jul 19, 2017 08:47
--- NOTE | 2017-07-19 09:19 | Diagnostic Imaging Report ---
Indication: Shortness of breath, weakness Technique: XRAY CHEST 1 V Comparison: 417, 11:21 Findings: ET tube and right IJ catheter unchanged. Interval advancement of the NG tube, tip in the distal stomach. There is extensive confluent bilateral airspace disease with air bronchograms compatible with a alveolar filling disease such as pulmonary edema, multifocal pneumonia and/or ARDS. These findings appear to have increased compared to the prior exam although that may be artifactually exaggerated due to lower lung volumes on today's exam. Heart and mediastinum are obscured by the bilateral parenchymal disease but appear stable. No acute osseous abnormality is appreciated. Impression: Persistent extensive bilateral space disease with worsening aeration in the bilateral lungs compared to one day prior. This may be artifactually exaggerated due to decreased lung volumes on today's exam. Interval advancement of NG tube, tip now in the distal stomach.
[2017-07-19] MEDS: Meropenem 1 GM in NS 55 ML IVPB SCH (09:38)
[2017-07-19] MEDS: levETIRAcetam 500mg/5ml Liquid GT SCH ×2 (09:45→21:00)
[2017-07-19] MEDS: LaMICtal 150mg tab GT SCH (09:46)
[2017-07-19] MEDS: carBAMazepine 200mg tab GT SCH ×2 (09:46→21:01)
[2017-07-19] MEDS: Vancomycin 1gm/D5W 275ml IVPB SCH ×2 (10:14)
[2017-07-19 10:23] LABS: MEAN CORPUSCULAR HEMOGLOBIN 31.6 PG (27.0-31.0); MEAN CORPUSCULAR HGB CONC 33.4 G/DL (32.0-36.0); MEAN CORPUSCULAR VOLUME 95 FL (80-99); MEAN PLATELET VOLUME 11.4 FL (6.5-10.1); PLATELET COUNT 38 K/UL (150-450); RED BLOOD COUNT 2.98 M/UL (4.70-6.10); RED CELL DISTRIBUTION WIDTH 13.4 % (11.6-14.8); WHITE BLOOD COUNT 8.8 K/UL (4.8-10.8)
[2017-07-19] MEDS ORDERED: Bactrim Susp 20ml GT ONE (10:30)
[2017-07-19 10:45] LABS: ANION GAP 7 mmol/L (5-15); CALCIUM 7.7 MG/DL (8.5-10.1); CARBON DIOXIDE 24 MMOL/L (21-32); CHLORIDE 107 MMOL/L (98-107); CREATININE 1.5 MG/DL (0.55-1.30); GLOMERULAR FILTRATION RATE 57.1 mL/min (>60); MAGNESIUM 1.4 MG/DL (1.8-2.4); PHOSPHORUS 1.8 MG/DL (2.5-4.9); POTASSIUM 3.1 MMOL/L (3.5-5.1); SODIUM 138 MMOL/L (136-145)
[2017-07-19 10:46] LABS: EOSINOPHILS % (MANUAL) 1 % (0-3); LYMPHOCYTES % (MANUAL) 9 % (20-45); NEUTROPHILS % (MANUAL) 84 % (45-75); TOTAL CELLS COUNTED 100
[2017-07-19 10:47] LABS: ANISOCYTOSIS 1+; BAND NEUTROPHILS % (MANUAL) 0 % (0-8); BASOPHILS % (MANUAL) 0 % (0-2); HYPOCHROMASIA 2+; PLATELET ESTIMATE DECREASED; PLATELET MORPHOLOGY NORMAL; SPHEROCYTES 1+
--- NOTE | 2017-07-19 12:36 | Infectious Diseases Prog Note ---
"Assessment/Plan Assessment/Plan antibiotics : vancomycin, meropenem, fflagyl A 1. MRSA | klebsiella pneumonia 2. respiratory failure 3. thrombocytopenia 4. MRSA sepsis 5. renal failure improving 6. HTN 7. leucocytosis improving P 1. continue vancomycin iv, flagyl 2. d/c meropenem 3. start bactrim 4. will follow up cultures Subjective ROS Limited/Unobtainable: Yes Allergies: Coded Allergies: CODEINE (Verified Allergy, Unknown, 11/15/16) Objective Vital Signs Last 24 Hour Vital Signs Date Time Temp Pulse Resp B/P (MAP) Pulse Ox O2 Delivery O2 Flow Rate FiO2 07/19/17 12:00 45 07/19/17 11:49 106/63 07/19/17 10:50 93 22 100 Mechanical Ventilator 45 07/19/17 10:40 95 28 100 Mechanical Ventilator 45 07/19/17 10:38 95 28 45 07/19/17 10:10 98 112/70 07/19/17 10:00 96 29 112/70 100 Mechanical Ventilator 45 07/19/17 09:45 96 29 86/59 100 Mechanical Ventilator 45 07/19/17 09:30 96 27 103/62 100 Mechanical Ventilator 45 07/19/17 09:15 95 28 97/62 100 Mechanical Ventilator 45 07/19/17 09:13 97 32 45 07/19/17 09:00 94 30 88/50 100 Mechanical Ventilator 45 07/19/17 08:45 96 30 100/61 100 Mechanical Ventilator 45 07/19/17 08:30 98 32 102/58 100 Mechanical Ventilator 45 07/19/17 08:15 98 32 91/56 100 Mechanical Ventilator 45 07/19/17 08:00 100 07/19/17 08:00 98 32 104/89 100 Mechanical Ventilator 45 07/19/17 07:47 45 07/19/17 07:45 99 33 111/69 100 Mechanical Ventilator 45 07/19/17 07:30 100 34 91/58 100 Mechanical Ventilator 45 07/19/17 07:17 98 28 100 Mechanical Ventilator 45 07/19/17 07:15 99 32 93/61 100 Mechanical Ventilator 45 07/19/17 07:06 97 22 100 Mechanical Ventilator 45 07/19/17 07:06 97 22 45 07/19/17 07:00 100 28 93/61 100 Mechanical Ventilator 45 07/19/17 07:00 30 07/19/17 06:45 96 28 96/60 100 Mechanical Ventilator 45 07/19/17 06:45 29 07/19/17 06:38 32 07/19/17 06:30 30 07/19/17 06:30 98 30 100/68 100 Mechanical Ventilator 45 07/19/17 06:15 98 29 93/57 100 Mechanical Ventilator 45 07/19/17 06:15 29 07/19/17 06:00 29 07/19/17 06:00 99 30 110/66 100 Mechanical Ventilator 45 07/19/17 05:45 100 29 98/58 100 Mechanical Ventilator 45 07/19/17 05:30 100 29 117/68 100 Mechanical Ventilator 45 07/19/17 05:18 97 28 45 07/19/17 05:15 97 29 85/58 100 Mechanical Ventilator 45 07/19/17 05:00 99 31 106/69 100 Mechanical Ventilator 45 07/19/17 05:00 30 07/19/17 04:45 99 31 113/68 100 Mechanical Ventilator 45 07/19/17 04:30 106 34 98/59 100 Mechanical Ventilator 45 07/19/17 04:15 98 36 103/66 100 Mechanical Ventilator 45 07/19/17 04:00 92 07/19/17 04:00 99.3 94 33 90/53 100 Mechanical Ventilator 45 07/19/17 04:00 45 07/19/17 04:00 28 07/19/17 03:45 29 07/19/17 03:45 96 31 104/63 100 Mechanical Ventilator 45 07/19/17 03:30 96 31 106/62 100 Mechanical Ventilator 45 07/19/17 03:30 31 07/19/17 03:15 96 31 103/67 100 Mechanical Ventilator 45 07/19/17 03:15 29 07/19/17 03:11 89 30 100 Mechanical Ventilator 45 07/19/17 03:00 45 07/19/17 03:00 89 30 87/59 100 Mechanical Ventilator 45 07/19/17 03:00 101 31 100 Mechanical Ventilator 45 07/19/17 03:00 30 07/19/17 03:00 101 31 45 07/19/17 02:45 101 31 121/73 100 Mechanical Ventilator 45 07/19/17 02:34 97 95/60 07/19/17 02:30 99 34 74/45 99 Mechanical Ventilator 45 07/19/17 02:15 96 34 89/53 100 Mechanical Ventilator 45 07/19/17 02:00 30 07/19/17 02:00 89 34 100/59 100 Mechanical Ventilator 45 07/19/17 01:45 96 32 111/65 100 Mechanical Ventilator 45 07/19/17 01:30 96 32 114/68 100 Mechanical Ventilator 45 07/19/17 01:15 94 35 101/64 100 Mechanical Ventilator 45 07/19/17 01:14 96 31 45 07/19/17 01:00 30 07/19/17 01:00 96 30 111/68 100 Mechanical Ventilator 45 07/19/17 00:45 95 30 94/56 100 Mechanical Ventilator 45 07/19/17 00:30 95 31 89/56 100 Mechanical Ventilator 45 07/19/17 00:15 95 32 112/68 100 Mechanical Ventilator 45 07/19/17 00:00 96 07/19/17 00:00 96 32 112/68 100 Mechanical Ventilator 45 07/19/17 00:00 30 07/19/17 00:00 45 07/18/17 23:45 95 31 100/58 100 Mechanical Ventilator 45 07/18/17 23:34 31 07/18/17 23:30 95 31 99/58 100 Mechanical Ventilator 50 07/18/17 23:15 97 30 99/58 100 Mechanical Ventilator 50 07/18/17 23:00 94 31 111/65 100 Mechanical Ventilator 50 07/18/17 23:00 28 07/18/17 22:59 100 32 100 Mechanical Ventilator 45 07/18/17 22:51 45 07/18/17 22:51 93 31 100 Mechanical Ventilator 45 07/18/17 22:51 89 31 45 07/18/17 22:46 92 99/60 07/18/17 22:45 91 24 84/56 100 Mechanical Ventilator 50 07/18/17 22:30 93 31 99/60 100 Mechanical Ventilator 50 07/18/17 22:15 96 32 111/67 100 Mechanical Ventilator 50 07/18/17 22:00 94 32 91/54 100 Mechanical Ventilator 50 07/18/17 22:00 30 07/18/17 21:45 95 30 89/56 100 Mechanical Ventilator 50 07/18/17 21:30 94 30 91/57 100 Mechanical Ventilator 50 07/18/17 21:30 93 32 45 07/18/17 21:15 93 30 109/65 100 Mechanical Ventilator 50 7/17 21:00 95 28 108/66 100 Mechanical Ventilator 50 7/17 21:00 30 7/17 20:45 95 28 108/66 100 Mechanical Ventilator 50 07/18/17 20:30 96 27 112/66 100 Mechanical Ventilator 50 7/17 20:15 95 25 109/67 100 Mechanical Ventilator 50 7/17 20:00 96 30 115/75 100 Mechanical Ventilator 50 7/17 20:00 30 17 20:00 94 7/17 20:00 45 17 19:45 94 30 113/67 100 Mechanical Ventilator 50 7/17 19:30 94 30 101/67 100 Mechanical Ventilator 50 07/18/17 19:16 96 132/72 17 19:07 99 33 100 Mechanical Ventilator 50 07/18/17 19:00 92 26 132/72 100 Mechanical Ventilator 50 7/17 19:00 26 17 19:00 132/72 17 18:58 97 33 100 Mechanical Ventilator 50 07/18/17 18:58 50 07/18/17 18:58 97 33 50 07/18/17 18:45 97 32 132/72 100 Mechanical Ventilator 50 07/18/17 18:30 94 33 111/73 100 Mechanical Ventilator 50 07/18/17 18:15 97 32 97/56 100 Mechanical Ventilator 50 07/18/17 18:00 97 31 115/72 100 Mechanical Ventilator 50 07/18/17 18:00 28 17 18:00 115/72 17 17:45 98 30 116/72 100 Mechanical Ventilator 50 07/18/17 17:30 96 30 109/69 100 Mechanical Ventilator 50 7/17 17:15 94 31 111/70 100 Mechanical Ventilator 50 07/18/17 17:00 98 33 50 07/18/17 17:00 97 31 117/69 100 Mechanical Ventilator 50 07/18/17 17:00 29 7/17 17:00 122/74 07/18/17 16:45 99 31 122/74 100 Mechanical Ventilator 50 7/17 16:30 100 30 117/71 100 Mechanical Ventilator 50 7/17 16:15 101 31 117/75 100 Mechanical Ventilator 50 12/7/17 16:00 105 07/18/17 16:00 99.5 100 30 119/74 100 Mechanical Ventilator 50 07/18/17 16:00 26 07/18/17 16:00 119/74 07/18/17 16:00 50 07/18/17 15:45 106 33 132/82 100 Mechanical Ventilator 50 07/18/17 15:44 100 29 100 Mechanical Ventilator 50 07/18/17 15:42 50 07/18/17 15:42 100 36 100 Mechanical Ventilator 50 07/18/17 15:33 101 102/63 07/18/17 15:32 102/63 07/18/17 15:31 16 07/18/17 15:30 102 32 133/80 100 Mechanical Ventilator 50 07/18/17 15:28 101 29 50 07/18/17 15:15 103 33 139/79 100 Mechanical Ventilator 50 07/18/17 15:00 102 16 118/72 100 Mechanical Ventilator 07/18/17 15:00 16 07/18/17 14:45 103 34 120/71 100 Mechanical Ventilator 50 07/18/17 14:30 102 32 104/65 100 Mechanical Ventilator 50 07/18/17 14:15 101 33 114/69 100 Mechanical Ventilator 50 07/18/17 14:00 99 16 104/66 100 Mechanical Ventilator 07/18/17 14:00 16 07/18/17 13:45 103 33 111/66 100 Mechanical Ventilator 50 07/18/17 13:30 104 34 102/60 100 Mechanical Ventilator 50 07/18/17 13:15 105 34 93/66 100 Mechanical Ventilator 50 07/18/17 13:11 106 38 50 07/18/17 13:00 103 16 102/60 100 Mechanical Ventilator 07/18/17 13:00 16 07/18/17 12:45 106 35 113/64 100 Mechanical Ventilator 50 Height (Feet): 5 Height (Inches): 9.00 Weight (Pounds): 182 HEENT: other - intubated Respiratory/Chest: lungs clear Cardiovascular: normal rate, regular rhythm, no gallop/murmur Abdomen: soft, non tender, other - GT Extremities: no edema, other - right IJ catheter Microbiology Date/Time Source Procedure Growth Status 07/16/17 21:00 Sputum Gram Stain - Final Resulted 07/16/17 21:00 Sputum Culture - Preliminary Klebsiella Pneumoniae Olga Albicans Usual Upper Respiratory [place] Resulted Laboratory Tests Test 07/18/17 18:10 07/19/17 04:20 07/19/17 09:45 Lactic Acid Level 4.60 mmol/L (0.66-2.22) H 3.90 mmol/L (0.66-2.22) H 3.70 mmol/L (0.66-2.22) H Triglycerides Level 84 MG/DL (30-150) White Blood Count 8.8 K/UL (4.8-10.8) Red Blood Count 2.98 M/UL (4.70-6.10) L Hemoglobin 9.4 G/DL (14.2-18.0) L Hematocrit 28.1 % (42.0-52.0) L Mean Corpuscular Volume 95 FL (80-99) Mean Corpuscular Hemoglobin 31.6 PG (27.0-31.0) H Mean Corpuscular Hemoglobin Concent 33.4 G/DL (32.0-36.0) Red Cell Distribution Width 13.4 % (11.6-14.8) Platelet Count 38 K/UL (150-450) L Mean Platelet Volume 11.4 FL (6.5-10.1) H Neutrophils (%) (Auto) % (45.0-75.0) Lymphocytes (%) (Auto) % (20.0-45.0) Monocytes (%) (Auto) % (1.0-10.0) Eosinophils (%) (Auto) % (0.0-3.0) Basophils (%) (Auto) % (0.0-2.0) Differential Total Cells Counted 100 Neutrophils % (Manual) 84 % (45-75) H Lymphocytes % (Manual) 9 % (20-45) L Monocytes % (Manual) 6 % (1-10) Eosinophils % (Manual) 1 % (0-3) Basophils % (Manual) 0 % (0-2) Band Neutrophils 0 % (0-8) Platelet Estimate Decreased L Platelet Morphology Normal Hypochromasia 2+ Anisocytosis 1+ Spherocytes 1+ Sodium Level 138 MMOL/L (136-145) Potassium Level 3.1 MMOL/L (3.5-5.1) L Chloride Level 107 MMOL/L (98-107) Carbon Dioxide Level 24 MMOL/L (21-32) Anion Gap 7 mmol/L (5-15) Blood Urea Nitrogen 22 mg/dL (7-18) H Creatinine 1.5 MG/DL (0.55-1.30) H Estimat Glomerular Filtration Rate 57.1 mL/min (>60) Glucose Level 79 MG/DL (74-106) Calcium Level 7.7 MG/DL (8.5-10.1) L Phosphorus Level 1.8 MG/DL (2.5-4.9) L Magnesium Level 1.4 MG/DL (1.8-2.4) L NIKOLAY HANNA Jul 19, 2017 12:36"
[2017-07-19] MEDS ORDERED: Potassium Phosphate 20 MM in NS 275 ML IV ONE (13:00)
--- NOTE | 2017-07-19 15:08 | General Progress Note ---
Assessment/Plan Assessment/Plan Assessment - UGIB - responding to conservative Rx - shock- responding to conservative Rx - severe thrombocytopenia - presumed due to DIC - lactic acidosis - resp failure - renal failure - mildly abnormal LFT, possibly duet to hypoperfusion - Gurded Recommendations - platelet transfusion - family wish to continue current level of care - supportive care / pressors - will consider EGD when more stable - transfuse platelets - PPI Subjective Allergies: Coded Allergies: CODEINE (Verified Allergy, Unknown, 11/15/16) Subjective Above noted doing better today on two pressors, but lower doses today scant dark NGT aspirate Objective Last 24 Hour Vital Signs Date Time Temp Pulse Resp B/P (MAP) Pulse Ox O2 Delivery O2 Flow Rate FiO2 07/19/17 14:15 91 28 101/61 100 Mechanical Ventilator 45 07/19/17 14:00 92 29 99/63 100 Mechanical Ventilator 45 07/19/17 13:45 92 29 99/64 100 Mechanical Ventilator 45 07/19/17 13:30 92 29 93/67 100 Mechanical Ventilator 45 07/19/17 13:15 94 30 93/56 100 Mechanical Ventilator 45 07/19/17 13:13 95 29 45 07/19/17 13:00 90 27 101/66 100 Mechanical Ventilator 45 07/19/17 12:45 90 27 96/62 100 Mechanical Ventilator 45 07/19/17 12:30 92 27 92/58 100 Mechanical Ventilator 45 07/19/17 12:15 91 28 92/57 100 Mechanical Ventilator 45 07/19/17 12:00 45 07/19/17 12:00 93 07/19/17 12:00 92 30 93/58 100 Mechanical Ventilator 45 07/19/17 11:49 106/63 07/19/17 11:45 93 26 95/63 100 Mechanical Ventilator 45 07/19/17 11:30 96 29 106/63 100 Mechanical Ventilator 45 07/19/17 11:15 97 27 101/64 100 Mechanical Ventilator 45 07/19/17 11:00 96 27 99/65 100 Mechanical Ventilator 45 07/19/17 10:50 93 22 100 Mechanical Ventilator 45 07/19/17 10:45 92 24 100/68 100 Mechanical Ventilator 45 07/19/17 10:40 95 28 100 Mechanical Ventilator 45 07/19/17 10:38 95 28 45 07/19/17 10:30 99 28 94/63 100 Mechanical Ventilator 45 07/19 10:15 96 29 111/72 100 Mechanical Ventilator 45 8 10:10 98 112/70 07/19/17 10:00 96 29 112/70 100 Mechanical Ventilator 45 07/19/17 09:45 96 29 86/59 100 Mechanical Ventilator 45 07/19/17 09:30 96 27 103/62 100 Mechanical Ventilator 45 8 09:15 95 28 97/62 100 Mechanical Ventilator 45 07/19/17 09:13 97 32 45 07/19/17 09:00 94 30 88/50 100 Mechanical Ventilator 45 07/19/17 08:45 96 30 100/61 100 Mechanical Ventilator 45 07/19/17 08:30 98 32 102/58 100 Mechanical Ventilator 45 07/19/17 08:15 98 32 91/56 100 Mechanical Ventilator 45 07/19/17 08:00 100 07/19/17 08:00 98 32 104/89 100 Mechanical Ventilator 45 07/19/17 07:47 45 07/19/17 07:45 99 33 111/69 100 Mechanical Ventilator 45 07/19/17 07:30 100 34 91/58 100 Mechanical Ventilator 45 07/19/17 07:17 98 28 100 Mechanical Ventilator 45 07/19/17 07:15 99 32 93/61 100 Mechanical Ventilator 45 07/19/17 07:06 97 22 100 Mechanical Ventilator 45 07/19/17 07:06 97 22 45 07/19/17 07:00 100 28 93/61 100 Mechanical Ventilator 45 07/19/17 07:00 30 07/19/17 06:45 96 28 96/60 100 Mechanical Ventilator 45 07/19/17 06:45 29 07/19/17 06:38 32 07/19/17 06:30 30 07/19/17 06:30 98 30 100/68 100 Mechanical Ventilator 45 07/19/17 06:15 98 29 93/57 100 Mechanical Ventilator 45 07/19/17 06:15 29 07/19/17 06:00 29 07/19/17 06:00 99 30 110/66 100 Mechanical Ventilator 45 07/19/17 05:45 100 29 98/58 100 Mechanical Ventilator 45 07/19/17 05:30 100 29 117/68 100 Mechanical Ventilator 45 07/19/17 05:18 97 28 45 07/19/17 05:15 97 29 85/58 100 Mechanical Ventilator 45 07/19/17 05:00 99 31 106/69 100 Mechanical Ventilator 45 07/19/17 05:00 30 07/19/17 04:45 99 31 113/68 100 Mechanical Ventilator 45 07/19/17 04:30 106 34 98/59 100 Mechanical Ventilator 45 07/19/17 04:15 98 36 103/66 100 Mechanical Ventilator 45 07/19/17 04:00 92 07/19/17 04:00 99.3 94 33 90/53 100 Mechanical Ventilator 45 07/19/17 04:00 45 07/19/17 04:00 28 07/19/17 03:45 29 07/19/17 03:45 96 31 104/63 100 Mechanical Ventilator 45 07/19/17 03:30 96 31 106/62 100 Mechanical Ventilator 45 07/19/17 03:30 31 07/19/17 03:15 96 31 103/67 100 Mechanical Ventilator 45 07/19/17 03:15 29 07/19/17 03:11 89 30 100 Mechanical Ventilator 45 07/19/17 03:00 45 07/19/17 03:00 89 30 87/59 100 Mechanical Ventilator 45 07/19/17 03:00 101 31 100 Mechanical Ventilator 45 07/19/17 03:00 30 07/19/17 03:00 101 31 45 07/19/17 02:45 101 31 121/73 100 Mechanical Ventilator 45 07/19/17 02:34 97 95/60 07/19/17 02:30 99 34 74/45 99 Mechanical Ventilator 45 07/19/17 02:15 96 34 89/53 100 Mechanical Ventilator 45 07/19/17 02:00 30 07/19/17 02:00 89 34 100/59 100 Mechanical Ventilator 45 07/19/17 01:45 96 32 111/65 100 Mechanical Ventilator 45 07/19/17 01:30 96 32 114/68 100 Mechanical Ventilator 45 07/19/17 01:15 94 35 101/64 100 Mechanical Ventilator 45 07/19/17 01:14 96 31 45 07/19/17 01:00 30 07/19/17 01:00 96 30 111/68 100 Mechanical Ventilator 45 07/19/17 00:45 95 30 94/56 100 Mechanical Ventilator 45 07/19/17 00:30 95 31 89/56 100 Mechanical Ventilator 45 07/19/17 00:15 95 32 112/68 100 Mechanical Ventilator 45 07/19/17 00:00 96 07/19/17 00:00 96 32 112/68 100 Mechanical Ventilator 45 07/19/17 00:00 30 07/19/17 00:00 45 07/18/17 23:45 95 31 100/58 100 Mechanical Ventilator 45 07/18/17 23:34 31 07/18/17 23:30 95 31 99/58 100 Mechanical Ventilator 50 07/18/17 23:15 97 30 99/58 100 Mechanical Ventilator 50 07/18/17 23:00 94 31 111/65 100 Mechanical Ventilator 50 07/18/17 23:00 28 07/18/17 22:59 100 32 100 Mechanical Ventilator 45 07/18/17 22:51 45 07/18/17 22:51 93 31 100 Mechanical Ventilator 45 07/18/17 22:51 89 31 45 07/18/17 22:46 92 99/60 07/18/17 22:45 91 24 84/56 100 Mechanical Ventilator 50 07/18/17 22:30 93 31 99/60 100 Mechanical Ventilator 50 07/18/17 22:15 96 32 111/67 100 Mechanical Ventilator 50 07/18/17 22:00 94 32 91/54 100 Mechanical Ventilator 50 07/18/17 22:00 30 07/18/17 21:45 95 30 89/56 100 Mechanical Ventilator 50 07/18/17 21:30 94 30 91/57 100 Mechanical Ventilator 50 07/18/17 21:30 93 32 45 07/18/17 21:15 93 30 109/65 100 Mechanical Ventilator 50 07/18/17 21:00 95 28 108/66 100 Mechanical Ventilator 50 07/18/17 21:00 30 07/18/17 20:45 95 28 108/66 100 Mechanical Ventilator 50 07/18/17 20:30 96 27 112/66 100 Mechanical Ventilator 50 07/18/17 20:15 95 25 109/67 100 Mechanical Ventilator 50 07/18/17 20:00 96 30 115/75 100 Mechanical Ventilator 50 07/18/17 20:00 30 07/18/17 20:00 94 07/18/17 20:00 45 07/18/17 19:45 94 30 113/67 100 Mechanical Ventilator 50 07/18/17 19:30 94 30 101/67 100 Mechanical Ventilator 50 07/18/17 19:16 96 132/72 12/7/17 19:07 99 33 100 Mechanical Ventilator 50 07/18/17 19:00 92 26 132/72 100 Mechanical Ventilator 50 07/18/17 19:00 26 07/18/17 19:00 132/72 17 18:58 97 33 100 Mechanical Ventilator 50 17 18:58 50 17 18:58 97 33 50 07/18/17 18:45 97 32 132/72 100 Mechanical Ventilator 50 07/18/17 18:30 94 33 111/73 100 Mechanical Ventilator 50 07/18/17 18:15 97 32 97/56 100 Mechanical Ventilator 50 07/18/17 18:00 97 31 115/72 100 Mechanical Ventilator 50 07/18/17 18:00 28 07/18/17 18:00 115/72 07/18/17 17:45 98 30 116/72 100 Mechanical Ventilator 50 07/18/17 17:30 96 30 109/69 100 Mechanical Ventilator 50 07/18/17 17:15 94 31 111/70 100 Mechanical Ventilator 50 07/18/17 17:00 98 33 50 07/18/17 17:00 97 31 117/69 100 Mechanical Ventilator 50 07/18/17 17:00 29 07/18/17 17:00 122/74 07/18/17 16:45 99 31 122/74 100 Mechanical Ventilator 50 07/18/17 16:30 100 30 117/71 100 Mechanical Ventilator 50 07/18/17 16:15 101 31 117/75 100 Mechanical Ventilator 50 07/18/17 16:00 105 07/18/17 16:00 99.5 100 30 119/74 100 Mechanical Ventilator 50 07/18/17 16:00 26 07/18/17 16:00 119/74 07/18/17 16:00 50 07/18/17 15:45 106 33 132/82 100 Mechanical Ventilator 50 07/18/17 15:44 100 29 100 Mechanical Ventilator 50 07/18/17 15:42 50 07/18/17 15:42 100 36 100 Mechanical Ventilator 50 17 15:33 101 102/63 07/18/17 15:32 102/63 17 15:31 16 07/18/17 15:30 102 32 133/80 100 Mechanical Ventilator 50 07/18/17 15:28 101 29 50 07/18/17 15:15 103 33 139/79 100 Mechanical Ventilator 50 Intake and Output 07/19/17 07/20/17 19:00 07:00 Output Total 595 ml Balance -595 ml Output Urine Total 595 ml # Bowel Movements 1 Laboratory Tests 07/18/17 18:10: Lactic Acid Level 4.60H 07/19/17 04:20: Lactic Acid Level 3.90H, Triglycerides Level 84 07/19/17 09:45: Lactic Acid Level 3.70H, White Blood Count 8.8, Red Blood Count 2.98L, Hemoglobin 9.4L, Hematocrit 28.1L, Mean Corpuscular Volume 95, Mean Corpuscular Hemoglobin 31.6H, Mean Corpuscular Hemoglobin Concent 33.4, Red Cell Distribution Width 13.4, Platelet Count 38L, Mean Platelet Volume 11.4H, Neutrophils (%) (Auto) , Lymphocytes (%) (Auto) , Monocytes (%) (Auto) , Eosinophils (%) (Auto) , Basophils (%) (Auto) , Differential Total Cells Counted 100, Neutrophils % (Manual) 84H, Lymphocytes % (Manual) 9L, Monocytes % (Manual) 6, Eosinophils % (Manual) 1, Basophils % (Manual) 0, Band Neutrophils 0 , Platelet Estimate DecreasedL, Platelet Morphology Normal, Hypochromasia 2+, Anisocytosis 1+, Spherocytes 1+, Sodium Level 138, Potassium Level 3.1L, Chloride Level 107, Carbon Dioxide Level 24, Anion Gap 7, Blood Urea Nitrogen 22H, Creatinine 1.5H, Estimat Glomerular Filtration Rate 57.1, Glucose Level 79 , Calcium Level 7.7L, Phosphorus Level 1.8L, Magnesium Level 1.4L Height (Feet): 5 Height (Inches): 9.00 Weight (Pounds): 182 Objective WDWN AA man NCAT supple Coarse BS RR abd soft, (+) GT trace edema obtunded MANNY KAUR Jul 19, 2017 15:08
[2017-07-19] MEDS: Bactrim Susp 20ml GT SCH (20:59)
[2017-07-19] MEDS: Dyna-Hex 2% Top Sol 2oz TOPIC SCH (20:59)
[2017-07-20] VITALS (82 sets, daily range): BP systolic 83–125; BP diastolic 25–76
[2017-07-20] MEDS: metroNIDAZOLE 250mg tab GT SCH ×3 (06:05→21:39)
[2017-07-20] MEDS: D5NS 1,000 ML IV SCH ×2 (07:19→18:05)
--- NOTE | 2017-07-20 08:52 | General Progress Note ---
Assessment/Plan Problem List: (1) GI (gastrointestinal bleed) ICD Codes: K92.2 - Gastrointestinal hemorrhage, unspecified SNOMED: 76002423 (2) Respiratory failure ICD Codes: J96.90 - Respiratory failure, unspecified, unspecified whether with hypoxia or hypercapnia SNOMED: 106281740 (3) Feeding by G-tube ICD Codes: Z93.1 - Gastrostomy status SNOMED: 050773840, 440957068 (4) Altered mental status ICD Codes: R41.82 - Altered mental status, unspecified SNOMED: 433395316 Qualifiers: Qualified Codes: R41.82 - Altered mental status, unspecified (5) Septic shock ICD Codes: A41.9 - Sepsis, unspecified organism; R65.21 - Severe sepsis with septic shock SNOMED: 80669607 Assessment/Plan increase GTF ppi platelet today GI procedures on hold Subjective ROS Limited/Unobtainable: No Allergies: Coded Allergies: CODEINE (Verified Allergy, Unknown, 11/15/16) Objective Last 24 Hour Vital Signs Date Time Temp Pulse Resp B/P (MAP) Pulse Ox O2 Delivery O2 Flow Rate FiO2 07/20/17 06:56 99 30 45 07/20/17 06:45 99 29 102/58 100 Mechanical Ventilator 45 07/20/17 06:30 99 28 101/56 100 Mechanical Ventilator 45 07/20/17 06:15 99 28 99/60 100 Mechanical Ventilator 45 07/20/17 06:00 99 28 101/59 100 Mechanical Ventilator 45 07/20/17 05:45 99 29 99/57 100 Mechanical Ventilator 45 07/20/17 05:30 100 30 102/58 100 Mechanical Ventilator 45 07/20/17 05:21 96 28 45 07/20/17 05:15 101 29 98/57 100 Mechanical Ventilator 45 07/20/17 05:00 95 27 97/59 100 Mechanical Ventilator 45 07/20/17 04:45 95 27 98/58 100 Mechanical Ventilator 45 07/20/17 04:30 97 27 104/55 100 Mechanical Ventilator 45 07/20/17 04:15 99 31 104/61 100 Mechanical Ventilator 45 07/20/17 04:00 45 07/20/17 04:00 104 07/20/17 04:00 97.9 104 32 103/65 100 Mechanical Ventilator 45 07/20/17 03:45 103 32 107/65 100 Mechanical Ventilator 45 07/20/17 03:30 102 32 104/66 100 Mechanical Ventilator 45 07/20/17 03:17 101 34 45 07/20/17 03:15 102 32 99/64 100 Mechanical Ventilator 45 07/20/17 03:00 102 32 100/65 100 Mechanical Ventilator 45 07/20/17 02:45 102 32 104/67 100 Mechanical Ventilator 45 07/20/17 02:30 101 31 103/64 100 Mechanical Ventilator 45 07/20/17 02:15 100 32 111/68 100 Mechanical Ventilator 45 07/20/17 02:00 102 33 115/71 100 Mechanical Ventilator 45 07/20/17 01:30 101 31 107/68 100 Mechanical Ventilator 45 07/20/17 01:00 104 29 125/76 100 Mechanical Ventilator 45 07/20/17 00:39 99 29 45 07/20/17 00:30 97 29 106/68 100 Mechanical Ventilator 45 07/20/17 00:00 45 07/20/17 00:00 98.7 98 28 100/63 100 Mechanical Ventilator 45 07/20/17 00:00 98 07/19/17 23:09 97 26 45 07/19/17 23:00 97 27 99/63 100 Mechanical Ventilator 45 07/19/17 22:22 94 106/63 07/19/17 22:00 101 30 93/61 100 Mechanical Ventilator 45 07/19/17 21:30 95 26 99/58 100 Mechanical Ventilator 45 07/19/17 21:00 95 28 108/69 100 Mechanical Ventilator 45 07/19/17 20:42 98 28 45 07/19/17 20:30 99 28 91/66 100 Mechanical Ventilator 45 07/19/17 20:00 95 07/19/17 20:00 98.8 95 26 109/68 100 Mechanical Ventilator 45 07/19/17 20:00 45 07/19/17 19:30 95 26 113/66 100 Mechanical Ventilator 45 07/19/17 19:18 89 24 100 Mechanical Ventilator 45 07/19/17 19:08 91 30 100 Mechanical Ventilator 45 07/19/17 19:06 91 30 45 07/19/17 19:00 106/69 07/19/17 19:00 91 30 109/69 100 Mechanical Ventilator 45 07/19/17 18:45 93 30 107/71 100 Mechanical Ventilator 45 07/19/17 18:30 93 30 110/67 100 Mechanical Ventilator 45 07/19/17 18:15 93 30 90/55 100 Mechanical Ventilator 45 07/19/17 18:00 97/68 07/19/17 18:00 94 28 97/68 100 Mechanical Ventilator 45 07/19/17 17:45 93 27 97/68 100 Mechanical Ventilator 45 07/19/17 17:30 96 28 101/63 100 Mechanical Ventilator 45 07/19/17 17:20 95 32 Mechanical Ventilator 07/19/17 17:16 96 32 45 07/19/17 17:15 96 28 101/63 100 Mechanical Ventilator 45 07/19/17 17:00 89/59 07/19/17 17:00 95 28 85/59 100 Mechanical Ventilator 45 07/19/17 16:45 95 26 107/65 100 Mechanical Ventilator 45 07/19/17 16:30 95 26 107/65 100 Mechanical Ventilator 45 07/19/17 16:15 96 27 98/62 100 Mechanical Ventilator 45 07/19/17 16:00 98.7 96 28 103/66 100 Mechanical Ventilator 45 07/19/17 16:00 97 07/19/17 16:00 45 07/19/17 16:00 98/62 07/19/17 15:45 97 28 103/64 100 Mechanical Ventilator 45 07/19/17 15:30 94 25 104/63 100 Mechanical Ventilator 45 07/19/17 15:27 95 28 100 Mechanical Ventilator 45 07/19/17 15:18 95 27 45 07/19/17 15:17 95 27 100 Mechanical Ventilator 45 07/19/17 15:15 92 24 104/63 100 Mechanical Ventilator 45 07/19/17 15:00 94 28 90/61 100 Mechanical Ventilator 45 07/19/17 15:00 90/61 07/19/17 14:45 91 28 108/68 100 Mechanical Ventilator 45 07/19/17 14:30 91 27 99/63 100 Mechanical Ventilator 45 07/19/17 14:15 91 28 101/61 100 Mechanical Ventilator 45 07/19/17 14:00 92 29 99/63 100 Mechanical Ventilator 45 07/19/17 14:00 99/63 07/19/17 13:45 92 29 99/64 100 Mechanical Ventilator 45 07/19/17 13:30 92 29 93/67 100 Mechanical Ventilator 45 07/19/17 13:15 94 30 93/56 100 Mechanical Ventilator 45 07/19/17 13:13 95 29 45 07/19/17 13:00 101/66 07/19/17 13:00 90 27 101/66 100 Mechanical Ventilator 45 07/19/17 12:45 90 27 96/62 100 Mechanical Ventilator 45 07/19/17 12:30 92 27 92/58 100 Mechanical Ventilator 45 07/19/17 12:15 91 28 92/57 100 Mechanical Ventilator 45 07/19/17 12:00 45 07/19/17 12:00 93 07/19/17 12:00 93/58 07/19/17 12:00 98.6 92 30 93/58 100 Mechanical Ventilator 45 07/19/17 11:49 106/63 07/19/17 11:45 93 26 95/63 100 Mechanical Ventilator 45 07/19/17 11:30 96 29 106/63 100 Mechanical Ventilator 45 07/19/17 11:15 97 27 101/64 100 Mechanical Ventilator 45 07/19/17 11:00 96 27 99/65 100 Mechanical Ventilator 45 07/19/17 11:00 99/65 07/19/17 10:50 93 22 100 Mechanical Ventilator 45 07/19/17 10:45 92 24 100/68 100 Mechanical Ventilator 45 07/19/17 10:40 95 28 100 Mechanical Ventilator 45 07/19/17 10:38 95 28 45 07/19/17 10:30 99 28 94/63 100 Mechanical Ventilator 45 07/19/17 10:15 96 29 111/72 100 Mechanical Ventilator 45 07/19/17 10:10 98 112/70 07/19/17 10:00 29 07/19/17 10:00 112/70 07/19/17 10:00 96 29 112/70 100 Mechanical Ventilator 45 07/19/17 09:45 96 29 86/59 100 Mechanical Ventilator 45 07/19/17 09:30 96 27 103/62 100 Mechanical Ventilator 45 07/19/17 09:15 95 28 97/62 100 Mechanical Ventilator 45 07/19/17 09:13 97 32 45 07/19/17 09:00 30 07/19/17 09:00 88/50 07/19/17 09:00 94 30 88/50 100 Mechanical Ventilator 45 Intake and Output 07/20/17 07/21/17 18:59 06:59 Intake Total 46.5 ml Output Total 50 ml Balance -3.5 ml IV Total 26.5 ml Tube Feeding 20 ml Output Urine Total 50 ml Laboratory Tests 07/19/17 09:45: White Blood Count 8.8, Red Blood Count 2.98L, Hemoglobin 9.4L, Hematocrit 28.1L , Mean Corpuscular Volume 95, Mean Corpuscular Hemoglobin 31.6H, Mean Corpuscular Hemoglobin Concent 33.4, Red Cell Distribution Width 13.4, Platelet Count 38L, Mean Platelet Volume 11.4H, Neutrophils (%) (Auto) , Lymphocytes (%) (Auto) , Monocytes (%) (Auto) , Eosinophils (%) (Auto) , Basophils (%) (Auto) , Differential Total Cells Counted 100, Neutrophils % (Manual) 84H, Lymphocytes % (Manual) 9L, Monocytes % (Manual) 6, Eosinophils % (Manual) 1, Basophils % ( Manual) 0, Band Neutrophils 0, Platelet Estimate DecreasedL, Platelet Morphology Normal, Hypochromasia 2+, Anisocytosis 1+, Spherocytes 1+, Sodium Level 138, Potassium Level 3.1L, Chloride Level 107, Carbon Dioxide Level 24, Anion Gap 7, Blood Urea Nitrogen 22H, Creatinine 1.5H, Estimat Glomerular Filtration Rate 57.1, Glucose Level 79, Lactic Acid Level 3.70H, Calcium Level 7.7L, Phosphorus Level 1.8L, Magnesium Level 1.4L Height (Feet): 5 Height (Inches): 9.00 Weight (Pounds): 186 General Appearance: lethargic EENT: normal ENT inspection Neck: supple Cardiovascular: normal rate Respiratory/Chest: decreased breath sounds Abdomen: normal bowel sounds, non tender, soft Extremities: non-tender GEOVANNY BRADFORD Jul 20, 2017 08:52
[2017-07-20] MEDS: Acetaminophen 650mg/20.3ml ORAL PRN ×2 (09:37→13:29)
[2017-07-20] MEDS: LaMICtal 150mg tab GT SCH (09:37)
[2017-07-20] MEDS: levETIRAcetam 500mg/5ml Liquid GT SCH ×2 (09:38→20:58)
[2017-07-20] MEDS: Bactrim Susp 20ml GT SCH ×2 (09:38→20:58)
[2017-07-20] MEDS: carBAMazepine 200mg tab GT SCH ×2 (09:38→20:59)
--- NOTE | 2017-07-20 10:00 | Critical Care Progress Note ---
Assessment/Plan Assessment/Plan IMPRESSION sepsis elevated lactic acid respiratory failure ho alcholic liver disease seizure disorder acute renal failure possible GIB coffee ground emesis MRSA sepsis polymicrobial infection PLAN NGT ventilator management follow up ABG monitor PH and adjust vent pressors and taper- still required seizure meds IV antibiotics noted ID evaluation GI evaluation- increase feeds monitor off diprivan off anticoag for now- resume when safe d/w family - discussing advance directives Critical Care - Subjective Interval Events: eyes dry still hypotensive ROS Limited/Unobtainable: Yes Condition: critical EKG Rhythm: Sinus Rhythm Residuals: minimal Tube Feeding Tolerated: yes Critical Care - Objective ET-Tube: 7.5 ET Position: 23 Last 24 Hour Vital Signs Date Time Temp Pulse Resp B/P (MAP) Pulse Ox O2 Delivery O2 Flow Rate FiO2 07/20/17 09:23 98 27 45 07/20/17 08:00 45 07/20/17 06:56 99 30 45 07/20/17 06:45 99 29 102/58 100 Mechanical Ventilator 45 07/20/17 06:30 99 28 101/56 100 Mechanical Ventilator 45 07/20/17 06:15 99 28 99/60 100 Mechanical Ventilator 45 07/20/17 06:00 99 28 101/59 100 Mechanical Ventilator 45 07/20/17 05:45 99 29 99/57 100 Mechanical Ventilator 45 07/20/17 05:30 100 30 102/58 100 Mechanical Ventilator 45 07/20/17 05:21 96 28 45 07/20/17 05:15 101 29 98/57 100 Mechanical Ventilator 45 07/20/17 05:00 95 27 97/59 100 Mechanical Ventilator 45 07/20/17 04:45 95 27 98/58 100 Mechanical Ventilator 45 07/20/17 04:30 97 27 104/55 100 Mechanical Ventilator 45 07/20/17 04:15 99 31 104/61 100 Mechanical Ventilator 45 07/20/17 04:00 45 07/20/17 04:00 104 07/20/17 04:00 97.9 104 32 103/65 100 Mechanical Ventilator 45 07/20/17 03:45 103 32 107/65 100 Mechanical Ventilator 45 07/20/17 03:30 102 32 104/66 100 Mechanical Ventilator 45 07/20/17 03:17 101 34 45 07/20/17 03:15 102 32 99/64 100 Mechanical Ventilator 45 07/20/17 03:00 102 32 100/65 100 Mechanical Ventilator 45 07/20/17 02:45 102 32 104/67 100 Mechanical Ventilator 45 07/20/17 02:30 101 31 103/64 100 Mechanical Ventilator 45 07/20/17 02:15 100 32 111/68 100 Mechanical Ventilator 45 07/20/17 02:00 102 33 115/71 100 Mechanical Ventilator 45 07/20/17 01:30 101 31 107/68 100 Mechanical Ventilator 45 07/20/17 01:00 104 29 125/76 100 Mechanical Ventilator 45 07/20/17 00:39 99 29 45 07/20/17 00:30 97 29 106/68 100 Mechanical Ventilator 45 07/20/17 00:00 45 07/20/17 00:00 98.7 98 28 100/63 100 Mechanical Ventilator 45 07/20/17 00:00 98 07/19/17 23:09 97 26 45 07/19/17 23:00 97 27 99/63 100 Mechanical Ventilator 45 07/19/17 22:22 94 106/63 07/19/17 22:00 101 30 93/61 100 Mechanical Ventilator 45 07/19/17 21:30 95 26 99/58 100 Mechanical Ventilator 45 07/19/17 21:00 95 28 108/69 100 Mechanical Ventilator 45 07/19/17 20:42 98 28 45 07/19/17 20:30 99 28 91/66 100 Mechanical Ventilator 45 07/19/17 20:00 95 07/19/17 20:00 98.8 95 26 109/68 100 Mechanical Ventilator 45 07/19/17 20:00 45 07/19/17 19:30 95 26 113/66 100 Mechanical Ventilator 45 07/19/17 19:18 89 24 100 Mechanical Ventilator 45 07/19/17 19:08 91 30 100 Mechanical Ventilator 45 07/19/17 19:06 91 30 45 07/19/17 19:00 106/69 07/19/17 19:00 91 30 109/69 100 Mechanical Ventilator 45 07/19/17 18:45 93 30 107/71 100 Mechanical Ventilator 45 07/19/17 18:30 93 30 110/67 100 Mechanical Ventilator 45 07/19/17 18:15 93 30 90/55 100 Mechanical Ventilator 45 07/19/17 18:00 97/68 07/19/17 18:00 94 28 97/68 100 Mechanical Ventilator 45 07/19/17 17:45 93 27 97/68 100 Mechanical Ventilator 45 17 17:30 96 28 101/63 100 Mechanical Ventilator 45 07/19/17 17:20 95 32 Mechanical Ventilator 07/19/17 17:16 96 32 45 07/19/17 17:15 96 28 101/63 100 Mechanical Ventilator 45 817 17:00 89/59 07/19/17 17:00 95 28 85/59 100 Mechanical Ventilator 45 07/19/17 16:45 95 26 107/65 100 Mechanical Ventilator 45 07/19/17 16:30 95 26 107/65 100 Mechanical Ventilator 45 07/19/17 16:15 96 27 98/62 100 Mechanical Ventilator 45 07/19/17 16:00 98.7 96 28 103/66 100 Mechanical Ventilator 45 07/19/17 16:00 97 07/19/17 16:00 45 07/19/17 16:00 98/62 07/19/17 15:45 97 28 103/64 100 Mechanical Ventilator 45 07/19/17 15:30 94 25 104/63 100 Mechanical Ventilator 45 07/19/17 15:27 95 28 100 Mechanical Ventilator 45 07/19/17 15:18 95 27 45 07/19/17 15:17 95 27 100 Mechanical Ventilator 45 07/19/17 15:15 92 24 104/63 100 Mechanical Ventilator 45 07/19/17 15:00 94 28 90/61 100 Mechanical Ventilator 45 07/19/17 15:00 90/61 07/19/17 14:45 91 28 108/68 100 Mechanical Ventilator 45 07/19/17 14:30 91 27 99/63 100 Mechanical Ventilator 45 07/19/17 14:15 91 28 101/61 100 Mechanical Ventilator 45 07/19/17 14:00 92 29 99/63 100 Mechanical Ventilator 45 07/19/17 14:00 99/63 07/19/17 13:45 92 29 99/64 100 Mechanical Ventilator 45 07/19/17 13:30 92 29 93/67 100 Mechanical Ventilator 45 07/19/17 13:15 94 30 93/56 100 Mechanical Ventilator 45 07/19/17 13:13 95 29 45 07/19/17 13:00 101/66 07/19/17 13:00 90 27 101/66 100 Mechanical Ventilator 45 07/19/17 12:45 90 27 96/62 100 Mechanical Ventilator 45 07/19/17 12:30 92 27 92/58 100 Mechanical Ventilator 45 07/19/17 12:15 91 28 92/57 100 Mechanical Ventilator 45 07/19/17 12:00 45 07/19/17 12:00 93 07/19/17 12:00 93/58 07/19/17 12:00 98.6 92 30 93/58 100 Mechanical Ventilator 45 07/19/17 11:49 106/63 07/19/17 11:45 93 26 95/63 100 Mechanical Ventilator 45 07/19/17 11:30 96 29 106/63 100 Mechanical Ventilator 45 07/19/17 11:15 97 27 101/64 100 Mechanical Ventilator 45 07/19/17 11:00 96 27 99/65 100 Mechanical Ventilator 45 07/19/17 11:00 99/65 07/19/17 10:50 93 22 100 Mechanical Ventilator 45 07/19/17 10:45 92 24 100/68 100 Mechanical Ventilator 45 07/19/17 10:40 95 28 100 Mechanical Ventilator 45 07/19/17 10:38 95 28 45 07/19/17 10:30 99 28 94/63 100 Mechanical Ventilator 45 07/19/17 10:15 96 29 111/72 100 Mechanical Ventilator 45 07/19/17 10:10 98 112/70 07/19/17 10:00 29 07/19/17 10:00 112/70 07/19/17 10:00 96 29 112/70 100 Mechanical Ventilator 45 Labs: Laboratory Tests Test 07/20/17 09:00 Vancomycin Level Trough Pending Objective: WDWN very ill intubated clear breath sounds bilaterally without rhonchi or wheeze [id number] mildly tachy without MRG NABS nontender no HSM no CC some edema diffusely reduced LOC EUSEBIO CRESPO Jul 20, 2017 10:00
--- NOTE | 2017-07-20 10:19 | Diagnostic Imaging Report ---
Indication: Elevated liver and renal function test Technique: Ultrasound of the abdomen. Comparison: 01/05/17 Findings: Pancreas is obscured. Liver appears nodular. Visualized portions of the main portal vein and the hepatic veins are grossly unremarkable although incompletely evaluated. Common bile duct measures 6 mm. Gallstones are present. Gallbladder wall measures 3 mm. There is suboptimal visualization of the kidneys without obvious hydronephrosis. The spleen is grossly normal in size. The visualized aorta is normal in caliber. Visualized portions of the inferior vena cava are unremarkable. Impression: Technically limited examination. Cholelithiasis. Clinical correlation recommended. Liver surface nodularity suggestive of cirrhosis. Clinical correlation recommended.
[2017-07-20] MEDS: Vancomycin 1gm/D5W 275ml IVPB SCH ×2 (10:59)
--- NOTE | 2017-07-20 11:26 | Infectious Diseases Prog Note ---
"Assessment/Plan Assessment/Plan antibiotics : vancomycin, bactrim, flagyl A 1. MRSA | klebsiella pneumonia 2. respiratory failure 3. thrombocytopenia 4. MRSA sepsis 5. renal failure improving 6. HTN 7. leucocytosis improving P 1. continue vancomycin iv, flagyl 2. continue bactrim 3. will follow up cultures Subjective ROS Limited/Unobtainable: Yes Allergies: Coded Allergies: CODEINE (Verified Allergy, Unknown, 11/15/16) Objective Vital Signs Last 24 Hour Vital Signs Date Time Temp Pulse Resp B/P (MAP) Pulse Ox O2 Delivery O2 Flow Rate FiO2 07/20/17 10:50 100 25 45 07/20/17 10:07 98.9 07/20/17 09:23 98 27 45 07/20/17 08:00 45 07/20/17 08:00 99 07/20/17 06:56 99 30 45 07/20/17 06:45 99 29 102/58 100 Mechanical Ventilator 45 07/20/17 06:30 99 28 101/56 100 Mechanical Ventilator 45 07/20/17 06:15 99 28 99/60 100 Mechanical Ventilator 45 07/20/17 06:00 99 28 101/59 100 Mechanical Ventilator 45 07/20/17 05:45 99 29 99/57 100 Mechanical Ventilator 45 07/20/17 05:30 100 30 102/58 100 Mechanical Ventilator 45 07/20/17 05:21 96 28 45 07/20/17 05:15 101 29 98/57 100 Mechanical Ventilator 45 07/20/17 05:00 95 27 97/59 100 Mechanical Ventilator 45 07/20/17 04:45 95 27 98/58 100 Mechanical Ventilator 45 07/20/17 04:30 97 27 104/55 100 Mechanical Ventilator 45 07/20/17 04:15 99 31 104/61 100 Mechanical Ventilator 45 07/20/17 04:00 45 07/20/17 04:00 104 07/20/17 04:00 97.9 104 32 103/65 100 Mechanical Ventilator 45 07/20/17 03:45 103 32 107/65 100 Mechanical Ventilator 45 07/20/17 03:30 102 32 104/66 100 Mechanical Ventilator 45 07/20/17 03:17 101 34 45 07/20/17 03:15 102 32 99/64 100 Mechanical Ventilator 45 07/20/17 03:00 102 32 100/65 100 Mechanical Ventilator 45 07/20/17 02:45 102 32 104/67 100 Mechanical Ventilator 45 07/20/17 02:30 101 31 103/64 100 Mechanical Ventilator 45 07/20/17 02:15 100 32 111/68 100 Mechanical Ventilator 45 07/20/17 02:00 102 33 115/71 100 Mechanical Ventilator 45 07/20/17 01:30 101 31 107/68 100 Mechanical Ventilator 45 07/20/17 01:00 104 29 125/76 100 Mechanical Ventilator 45 07/20/17 00:39 99 29 45 07/20/17 00:30 97 29 106/68 100 Mechanical Ventilator 45 07/20/17 00:00 45 07/20/17 00:00 98.7 98 28 100/63 100 Mechanical Ventilator 45 07/20/17 00:00 98 07/19/17 23:09 97 26 45 07/19/17 23:00 97 27 99/63 100 Mechanical Ventilator 45 07/19/17 22:22 94 106/63 07/19/17 22:00 101 30 93/61 100 Mechanical Ventilator 45 07/19/17 21:30 95 26 99/58 100 Mechanical Ventilator 45 07/19/17 21:00 95 28 108/69 100 Mechanical Ventilator 45 07/19/17 20:42 98 28 45 07/19/17 20:30 99 28 91/66 100 Mechanical Ventilator 45 07/19/17 20:00 95 07/19/17 20:00 98.8 95 26 109/68 100 Mechanical Ventilator 45 07/19/17 20:00 45 07/19/17 19:30 95 26 113/66 100 Mechanical Ventilator 45 07/19/17 19:18 89 24 100 Mechanical Ventilator 45 07/19/17 19:08 91 30 100 Mechanical Ventilator 45 07/19/17 19:06 91 30 45 07/19/17 19:00 106/69 07/19/17 19:00 91 30 109/69 100 Mechanical Ventilator 45 07/19/17 18:45 93 30 107/71 100 Mechanical Ventilator 45 07/19/17 18:30 93 30 110/67 100 Mechanical Ventilator 45 07/19/17 18:15 93 30 90/55 100 Mechanical Ventilator 45 07/19/17 18:00 97/68 07/19/17 18:00 94 28 97/68 100 Mechanical Ventilator 45 07/19/17 17:45 93 27 97/68 100 Mechanical Ventilator 45 07/19/ 17:30 96 28 101/63 100 Mechanical Ventilator 45 07/19/17 17:20 95 32 Mechanical Ventilator 07/19/17 17:16 96 32 45 07/19/17 17:15 96 28 101/63 100 Mechanical Ventilator 45 8/17 17:00 89/59 07/19/17 17:00 95 28 85/59 100 Mechanical Ventilator 45 07/19/17 16:45 95 26 107/65 100 Mechanical Ventilator 45 07/19/17 16:30 95 26 107/65 100 Mechanical Ventilator 45 07/19/17 16:15 96 27 98/62 100 Mechanical Ventilator 45 07/19/ 16:00 98.7 96 28 103/66 100 Mechanical Ventilator 45 07/19/17 16:00 97 07/19/17 16:00 45 07/19/17 16:00 98/62 07/19/17 15:45 97 28 103/64 100 Mechanical Ventilator 45 07/19/17 15:30 94 25 104/63 100 Mechanical Ventilator 45 07/19/17 15:27 95 28 100 Mechanical Ventilator 45 07/19/17 15:18 95 27 45 07/19/17 15:17 95 27 100 Mechanical Ventilator 45 07/19/17 15:15 92 24 104/63 100 Mechanical Ventilator 45 07/19/17 15:00 94 28 90/61 100 Mechanical Ventilator 45 07/19/17 15:00 90/61 07/19/17 14:45 91 28 108/68 100 Mechanical Ventilator 45 07/19/17 14:30 91 27 99/63 100 Mechanical Ventilator 45 07/19/17 14:15 91 28 101/61 100 Mechanical Ventilator 45 07/19/17 14:00 92 29 99/63 100 Mechanical Ventilator 45 07/19/17 14:00 99/63 07/19/17 13:45 92 29 99/64 100 Mechanical Ventilator 45 07/19/17 13:30 92 29 93/67 100 Mechanical Ventilator 45 07/19/17 13:15 94 30 93/56 100 Mechanical Ventilator 45 07/19/17 13:13 95 29 45 07/19/17 13:00 101/66 07/19/17 13:00 90 27 101/66 100 Mechanical Ventilator 45 07/19/17 12:45 90 27 96/62 100 Mechanical Ventilator 45 07/19/17 12:30 92 27 92/58 100 Mechanical Ventilator 45 07/19/17 12:15 91 28 92/57 100 Mechanical Ventilator 45 07/19/17 12:00 45 07/19/17 12:00 93 07/19/17 12:00 93/58 07/19/17 12:00 98.6 92 30 93/58 100 Mechanical Ventilator 45 07/19/17 11:49 106/63 07/19/17 11:45 93 26 95/63 100 Mechanical Ventilator 45 07/19/17 11:30 96 29 106/63 100 Mechanical Ventilator 45 Height (Feet): 5 Height (Inches): 9.00 Weight (Pounds): 186 HEENT: other - intubated Respiratory/Chest: lungs clear Cardiovascular: normal rate, regular rhythm, no gallop/murmur Abdomen: soft, non tender, other - GT Extremities: other - + edema, right IJ catheter Laboratory Tests Test 07/20/17 09:00 Vancomycin Level Trough 7.9 ug/mL (5.0-12.0) NIKOLAY HANNA Jul 20, 2017 11:26"
[2017-07-20] MEDS: Lacri-Lube Opth Oint 3.5gm BOTH EYES SCH ×2 (11:43→18:05)
[2017-07-20] MEDS ORDERED: D5NS 1000ml IV ONE ×2 (17:20→17:23)
[2017-07-20] MEDS ORDERED: Tubing IV Secondary IV ONE (17:23)
[2017-07-20] MEDS: Dyna-Hex 2% Top Sol 2oz TOPIC SCH (19:46)
[2017-07-20] MEDS: Phenylephrine 50 MG in D5W 245 ML IV SCH (21:51)
[2017-07-21] VITALS (41 sets, daily range): BP systolic 60–143; BP diastolic 53–86
[2017-07-21] MEDS: D5NS 1,000 ML IV SCH ×2 (04:18→09:30)
[2017-07-21] MEDS: metroNIDAZOLE 250mg tab GT SCH ×3 (05:36→22:22)
--- NOTE | 2017-07-21 07:39 | Infectious Diseases Prog Note ---
Assessment/Plan Assessment/Plan A; Shock MRSA sepsis Pneumonia with MRSA & KPC GI bleeding Hypoxic respiratory failure Acute renal failure Lactic acidosis Thrombocytopenia P; Continue Vancomycin, Bactrim & Flagyl Poor prognosis Subjective ROS Limited/Unobtainable: Yes Cardiovascular: Reports: other - on pressor Allergies: Coded Allergies: CODEINE (Verified Allergy, Unknown, 11/15/16) Objective Vital Signs Last 24 Hour Vital Signs Date Time Temp Pulse Resp B/P (MAP) Pulse Ox O2 Delivery O2 Flow Rate FiO2 07/21/17 07:00 98 27 122/67 100 Mechanical Ventilator 45 07/21/17 07:00 122/67 07/21/17 06:30 100 27 122/77 100 Mechanical Ventilator 45 07/21/17 06:00 129/73 07/21/17 06:00 104 29 129/73 100 Mechanical Ventilator 45 07/21/17 05:30 111 28 138/78 93 Mechanical Ventilator 45 07/21/17 05:12 101 28 45 07/21/17 05:00 116/62 07/21/17 05:00 98 25 116/63 100 Mechanical Ventilator 45 07/21/17 04:30 98.6 94 20 110/60 100 Mechanical Ventilator 45 07/21/17 04:00 94 07/21/17 04:00 92 24 60/63 100 Mechanical Ventilator 45 07/21/17 04:00 45 07/21/17 04:00 45 07/21/17 04:00 113/66 07/21/17 03:30 94 24 60/63 100 Mechanical Ventilator 45 07/21/17 03:25 94 27 45 07/21/17 03:00 109/63 07/21/17 03:00 94 24 109/63 100 Mechanical Ventilator 45 07/21/17 02:30 94 24 110/65 100 Mechanical Ventilator 45 07/21/17 02:00 91 23 102/66 100 Mechanical Ventilator 45 07/21/17 02:00 110/65 07/21/17 01:30 91 23 104/63 100 Mechanical Ventilator 45 07/21/17 01:15 93 27 45 07/21/17 01:00 90 27 106/64 100 Mechanical Ventilator 45 07/21/17 01:00 106/64 07/21/17 00:30 90 24 103/63 100 Mechanical Ventilator 45 07/21/17 00:00 45 07/21/17 00:00 102/66 07/21/17 00:00 92 07/21/17 00:00 97.7 91 23 102/66 100 Mechanical Ventilator 45 07/20/17 23:30 92 25 101/63 100 Mechanical Ventilator 45 07/20/17 23:15 87 23 45 07/20/17 23:00 99/59 07/20/17 23:00 88 23 99/59 100 Mechanical Ventilator 45 07/20/17 22:30 90 32 108/62 100 Mechanical Ventilator 45 07/20/17 22:00 89 22 104/59 100 Mechanical Ventilator 45 07/20/17 22:00 104/59 07/20/17 21:52 106/64 07/20/17 21:51 87 106/64 07/20/17 21:30 87 24 105/64 100 Mechanical Ventilator 45 07/20/17 21:21 86 21 45 07/20/17 21:00 87 24 106/65 100 Mechanical Ventilator 45 07/20/17 21:00 106/65 07/20/17 20:30 89 22 103/63 100 Mechanical Ventilator 45 07/20/17 20:00 92 07/20/17 20:00 97.6 92 25 104/59 100 Mechanical Ventilator 45 07/20/17 20:00 45 07/20/17 20:00 104/59 07/20/17 19:30 87 22 93/53 100 Mechanical Ventilator 45 07/20/17 19:07 84 21 45 07/20/17 19:00 86 22 98/60 100 Mechanical Ventilator 45 07/20/17 19:00 98/60 07/20/17 18:45 90 24 98/60 100 Mechanical Ventilator 45 07/20/17 18:30 89 24 96/52 100 Mechanical Ventilator 45 07/20/17 18:15 88 24 97/57 100 Mechanical Ventilator 45 07/20/17 18:00 93 26 87/56 100 Mechanical Ventilator 45 07/20/17 17:45 95 27 99/53 100 Mechanical Ventilator 45 07/20/17 17:30 89 23 90/57 100 Mechanical Ventilator 45 07/20/17 17:15 88 21 94/56 100 Mechanical Ventilator 45 07/20/17 17:08 88 27 45 07/20/17 17:00 90 22 95/65 100 Mechanical Ventilator 45 07/20/17 16:45 91 26 104/66 100 Mechanical Ventilator 45 07/20/17 16:30 90 22 97/61 100 Mechanical Ventilator 45 07/20/17 16:15 89 22 87/63 100 Mechanical Ventilator 45 07/20/17 16:00 45 07/20/17 16:00 91 07/20/17 16:00 98.6 89 21 97/60 100 Mechanical Ventilator 45 07/20/17 15:45 88 23 98/63 100 Mechanical Ventilator 45 07/20/17 15:30 87 21 91/58 100 Mechanical Ventilator 45 07/20/17 15:15 87 21 90/58 100 Mechanical Ventilator 45 07/20/17 15:00 89 22 89/56 100 Mechanical Ventilator 45 07/20/17 14:45 90 22 98/59 100 Mechanical Ventilator 45 07/20/17 14:44 90 26 45 07/20/17 14:30 91 22 96/58 100 Mechanical Ventilator 45 07/20/17 14:15 91 28 87/55 100 Mechanical Ventilator 45 07/20/17 14:11 99.0 07/20/17 14:00 100 28 83/54 100 Mechanical Ventilator 45 07/20/17 13:45 100 28 91/51 100 Mechanical Ventilator 45 07/20/17 13:30 100 28 87/56 100 Mechanical Ventilator 45 07/20/17 13:15 98 25 108/70 100 Mechanical Ventilator 45 07/20/17 13:12 98 28 45 07/20/17 13:00 100 29 97/59 100 Mechanical Ventilator 45 07/20/17 12:45 99.5 99 28 93/56 100 Mechanical Ventilator 45 07/20/17 12:30 99 28 104/57 100 Mechanical Ventilator 45 07/20/17 12:15 99 28 96/55 100 Mechanical Ventilator 45 07/20/17 12:00 99 27 95/57 100 Mechanical Ventilator 45 07/20/17 12:00 100 07/20/17 12:00 45 07/20/17 11:45 100 29 94/60 100 Mechanical Ventilator 45 07/20/17 11:30 100 28 97/51 100 Mechanical Ventilator 45 07/20/17 11:15 99 28 97/57 100 Mechanical Ventilator 45 07/20/17 11:00 99 27 97/56 100 Mechanical Ventilator 45 07/20/ 10:50 100 25 45 07/20/17 10:45 99 26 96/56 100 Mechanical Ventilator 45 07/20/17 10:30 100 28 98/56 100 Mechanical Ventilator 45 07/20/17 10:15 100 26 97/56 100 Mechanical Ventilator 45 07/20/17 10:00 101 26 96/57 100 Mechanical Ventilator 45 07/20/17 09:45 101 29 100/56 100 Mechanical Ventilator 45 07/20/17 09:30 98 28 105/59 100 Mechanical Ventilator 45 07/20/17 09:23 98 27 45 07/20/17 09:15 98 28 101/57 100 Mechanical Ventilator 45 07/20/17 09:00 99 29 100/58 100 Mechanical Ventilator 45 07/20/17 08:45 97 29 101/60 100 Mechanical Ventilator 45 07/20/17 08:30 99 29 102/58 100 Mechanical Ventilator 45 07/20/17 08:30 97 28 102/59 100 Mechanical Ventilator 45 07/20/17 08:15 99 29 101/57 100 Mechanical Ventilator 45 07/20/17 08:00 45 07/20/17 08:00 99.1 99 28 104/57 100 Mechanical Ventilator 45 07/20/17 08:00 99 07/20/17 07:45 102 31 96/54 100 Mechanical Ventilator 45 Height (Feet): 5 Height (Inches): 9.00 Weight (Pounds): 192 HEENT: other - orally intubated, has eyepatches Respiratory/Chest: lungs clear, other - on ventilator Cardiovascular: tachycardia, other - RIJ central line Abdomen: soft, non tender, other - GT Genitourinary: other - Barroso catheter Extremities: other - generalized edema Neurologic/Psychiatric: unresponsiveness Laboratory Tests Test 07/20/17 09:00 Vancomycin Level Trough 7.9 ug/mL (5.0-12.0) Current Medications Medications (Trade) Dose Ordered Sig/Romelia Route PRN Reason Start Time Stop Time Status Last Admin Dose Admin Acetaminophen (Tylenol) 650 mg Q4H PRN ORAL Fever/Headache/Mild Pain 07/14/17 20:00 08/13/17 19:59 07/20/17 13:29 Acetaminophen (Tylenol) 650 mg Q4H PRN ORAL Mild Pain/Temp > 100.5 07/14/17 20:00 08/13/17 19:59 Artificial Tears (Lacri-Lube) 1 applic BID BOTH EYES 07/20/17 11:15 08/19/17 11:14 07/20/17 18:05 Carbamazepine (TEGretol) 250 mg Q12HR GT 07/14/17 21:00 08/13/17 20:59 07/20/17 20:59 Chlorhexidine Gluconate (Natalie-Hex 2%) 1 applic DAILY@2000 TOPIC 07/16/17 20:00 08/15/17 19:59 07/20/17 19:46 Dextrose/Sodium Chloride 1,000 ml @ 100 mls/hr Q10H IV 07/17/17 10:00 08/16/17 09:59 07/21/17 04:18 Lamotrigine (LaMICtal) 300 mg DAILY GT 07/15/17 09:00 08/14/17 08:59 07/20/17 09:37 Lansoprazole (Prevacid) 30 mg Q12HR GT 07/15/17 13:00 08/14/17 12:59 07/20/17 20:58 Levetiracetam (Keppra) 1,500 mg Q12HR GT 07/16/17 21:00 08/15/17 20:59 07/20/17 20:58 Metronidazole (Flagyl) 250 mg Q8HR GT 07/16/17 12:30 07/23/17 12:29 07/21/17 05:36 Norepinephrine Bitartrate 4 mg/ Dextrose 250 ml @ 0 mls/hr Q24H IV 07/15/17 11:15 08/14/17 11:14 07/20/17 21:52 Phenylephrine HCl 50 mg/Dextrose 250 ml @ 0 mls/hr Q24H IV 07/15/17 11:15 08/14/17 11:14 07/20/17 21:51 Trimethoprim/ Sulfamethoxazole (Bactrim-DS) 10 ml EVERY 12 HOURS GT 07/19/17 21:00 07/26/17 20:59 07/20/17 20:58 Vancomycin HCl (Vanco rx to dose) 1 ea DAILY PRN MISC Per rx protocol 07/18/17 09:30 08/17/17 09:29 Vancomycin HCl/ Dextrose 250 ml @ 125 mls/hr Q24H IVPB 07/21/17 10:00 07/26/17 09:59 ANDRZEJ JAMES Jul 21, 2017 07:39
--- NOTE | 2017-07-21 08:10 | General Progress Note ---
Assessment/Plan Problem List: (1) GI (gastrointestinal bleed) ICD Codes: K92.2 - Gastrointestinal hemorrhage, unspecified SNOMED: 87424588 (2) Respiratory failure ICD Codes: J96.90 - Respiratory failure, unspecified, unspecified whether with hypoxia or hypercapnia SNOMED: 633019815 (3) Feeding by G-tube ICD Codes: Z93.1 - Gastrostomy status SNOMED: 442401561, 580195407 (4) Altered mental status ICD Codes: R41.82 - Altered mental status, unspecified SNOMED: 315752195 Qualifiers: Qualified Codes: R41.82 - Altered mental status, unspecified (5) Septic shock ICD Codes: A41.9 - Sepsis, unspecified organism; R65.21 - Severe sepsis with septic shock SNOMED: 46425664 Assessment/Plan increase GTF goal 55 ppi monitor labs vit k repeat INR for tomorrow GI procedures on hold Subjective ROS Limited/Unobtainable: No Allergies: Coded Allergies: CODEINE (Verified Allergy, Unknown, 11/15/16) Objective Last 24 Hour Vital Signs Date Time Temp Pulse Resp B/P (MAP) Pulse Ox O2 Delivery O2 Flow Rate FiO2 07/21/17 07:00 98 27 122/67 100 Mechanical Ventilator 45 07/21/17 07:00 122/67 07/21/17 06:30 100 27 122/77 100 Mechanical Ventilator 45 07/21/17 06:00 129/73 07/21/17 06:00 104 29 129/73 100 Mechanical Ventilator 45 07/21/17 05:30 111 28 138/78 93 Mechanical Ventilator 45 07/21/17 05:12 101 28 45 07/21/17 05:00 116/62 07/21/17 05:00 98 25 116/63 100 Mechanical Ventilator 45 07/21/17 04:30 98.6 94 20 110/60 100 Mechanical Ventilator 45 07/21/17 04:00 94 07/21/17 04:00 92 24 60/63 100 Mechanical Ventilator 45 07/21/17 04:00 45 07/21/17 04:00 45 07/21/17 04:00 113/66 07/21/17 03:30 94 24 60/63 100 Mechanical Ventilator 45 07/21/17 03:25 94 27 45 07/21/17 03:00 109/63 07/21/17 03:00 94 24 109/63 100 Mechanical Ventilator 45 07/21/17 02:30 94 24 110/65 100 Mechanical Ventilator 45 07/21/17 02:00 91 23 102/66 100 Mechanical Ventilator 45 07/21/17 02:00 110/65 07/21/17 01:30 91 23 104/63 100 Mechanical Ventilator 45 07/21/17 01:15 93 27 45 07/21/17 01:00 90 27 106/64 100 Mechanical Ventilator 45 07/21/17 01:00 106/64 07/21/17 00:30 90 24 103/63 100 Mechanical Ventilator 45 07/21/17 00:00 45 07/21/17 00:00 102/66 07/21/17 00:00 92 07/21/17 00:00 97.7 91 23 102/66 100 Mechanical Ventilator 45 07/20/17 23:30 92 25 101/63 100 Mechanical Ventilator 45 07/20/17 23:15 87 23 45 07/20/17 23:00 99/59 07/20/17 23:00 88 23 99/59 100 Mechanical Ventilator 45 07/20/17 22:30 90 32 108/62 100 Mechanical Ventilator 45 07/20/17 22:00 89 22 104/59 100 Mechanical Ventilator 45 07/20/17 22:00 104/59 07/20/17 21:52 106/64 07/20/17 21:51 87 106/64 07/20/17 21:30 87 24 105/64 100 Mechanical Ventilator 45 07/20/17 21:21 86 21 45 07/20/17 21:00 87 24 106/65 100 Mechanical Ventilator 45 07/20/17 21:00 106/65 07/20/17 20:30 89 22 103/63 100 Mechanical Ventilator 45 07/20/17 20:00 92 07/20/17 20:00 97.6 92 25 104/59 100 Mechanical Ventilator 45 07/20/17 20:00 45 07/20/17 20:00 104/59 07/20/17 19:30 87 22 93/53 100 Mechanical Ventilator 45 07/20/17 19:07 84 21 45 07/20/17 19:00 86 22 98/60 100 Mechanical Ventilator 45 07/20/17 19:00 98/60 07/20/17 18:45 90 24 98/60 100 Mechanical Ventilator 45 07/20/17 18:30 89 24 96/52 100 Mechanical Ventilator 45 07/20/17 18:15 88 24 97/57 100 Mechanical Ventilator 45 07/20/17 18:00 93 26 87/56 100 Mechanical Ventilator 45 07/20/17 17:45 95 27 99/53 100 Mechanical Ventilator 45 17 17:30 89 23 90/57 100 Mechanical Ventilator 45 07/20/17 17:15 88 21 94/56 100 Mechanical Ventilator 45 07/20/17 17:08 88 27 45 07/20/17 17:00 90 22 95/65 100 Mechanical Ventilator 45 07/20/17 16:45 91 26 104/66 100 Mechanical Ventilator 45 07/20/17 16:30 90 22 97/61 100 Mechanical Ventilator 45 07/20/17 16:15 89 22 87/63 100 Mechanical Ventilator 45 07/20/17 16:00 45 07/20/17 16:00 91 07/20/17 16:00 98.6 89 21 97/60 100 Mechanical Ventilator 45 07/20/17 15:45 88 23 98/63 100 Mechanical Ventilator 45 07/20/17 15:30 87 21 91/58 100 Mechanical Ventilator 45 07/20/17 15:15 87 21 90/58 100 Mechanical Ventilator 45 07/20/17 15:00 89 22 89/56 100 Mechanical Ventilator 45 07/20/17 14:45 90 22 98/59 100 Mechanical Ventilator 45 07/20/17 14:44 90 26 45 07/20/17 14:30 91 22 96/58 100 Mechanical Ventilator 45 07/20/17 14:15 91 28 87/55 100 Mechanical Ventilator 45 07/20/17 14:11 99.0 07/20/17 14:00 100 28 83/54 100 Mechanical Ventilator 45 07/20/17 13:45 100 28 91/51 100 Mechanical Ventilator 45 07/20/17 13:30 100 28 87/56 100 Mechanical Ventilator 45 07/20/17 13:15 98 25 108/70 100 Mechanical Ventilator 45 07/20/17 13:12 98 28 45 07/20/17 13:00 100 29 97/59 100 Mechanical Ventilator 45 07/20/17 12:45 99.5 99 28 93/56 100 Mechanical Ventilator 45 07/20/17 12:30 99 28 104/57 100 Mechanical Ventilator 45 07/20/17 12:15 99 28 96/55 100 Mechanical Ventilator 45 07/20/17 12:00 99 27 95/57 100 Mechanical Ventilator 45 07/20/17 12:00 100 07/20/17 12:00 45 07/20/17 11:45 100 29 94/60 100 Mechanical Ventilator 45 07/20/17 11:30 100 28 97/51 100 Mechanical Ventilator 45 07/20/17 11:15 99 28 97/57 100 Mechanical Ventilator 45 07/20/17 11:00 99 27 97/56 100 Mechanical Ventilator 45 07/20/17 10:50 100 25 45 07/20/17 10:45 99 26 96/56 100 Mechanical Ventilator 45 07/20/17 10:30 100 28 98/56 100 Mechanical Ventilator 45 07/20/17 10:15 100 26 97/56 100 Mechanical Ventilator 45 07/20/17 10:00 101 26 96/57 100 Mechanical Ventilator 45 07/20/17 09:45 101 29 100/56 100 Mechanical Ventilator 45 07/20/17 09:30 98 28 105/59 100 Mechanical Ventilator 45 07/20/17 09:23 98 27 45 07/20/17 09:15 98 28 101/57 100 Mechanical Ventilator 45 07/20/17 09:00 99 29 100/58 100 Mechanical Ventilator 45 07/20/17 08:45 97 29 101/60 100 Mechanical Ventilator 45 07/20/17 08:30 99 29 102/58 100 Mechanical Ventilator 45 07/20/17 08:30 97 28 102/59 100 Mechanical Ventilator 45 07/20/17 08:15 99 29 101/57 100 Mechanical Ventilator 45 Laboratory Tests 07/20/17 09:00: Vancomycin Level Trough 7.9 Height (Feet): 5 Height (Inches): 9.00 Weight (Pounds): 192 General Appearance: no apparent distress, lethargic EENT: normal ENT inspection Neck: supple Cardiovascular: normal rate Respiratory/Chest: decreased breath sounds Abdomen: normal bowel sounds, non tender, soft Extremities: non-tender GEOVANNY BRADFORD Jul 21, 2017 08:10
[2017-07-21] MEDS: Bactrim Susp 20ml GT SCH ×2 (08:41→20:50)
[2017-07-21] MEDS: Lacri-Lube Opth Oint 3.5gm BOTH EYES SCH ×2 (08:44→17:05)
[2017-07-21] MEDS: LaMICtal 150mg tab GT SCH (08:44)
[2017-07-21] MEDS: levETIRAcetam 500mg/5ml Liquid GT SCH ×2 (08:44→20:50)
[2017-07-21] MEDS: carBAMazepine 200mg tab GT SCH ×2 (08:45→20:49)
[2017-07-21] MEDS: Vancomycin 1500mg IVPB SCH (09:31)
[2017-07-21 10:00] LABS: MEAN CORPUSCULAR HEMOGLOBIN 31.8 PG (27.0-31.0); MEAN CORPUSCULAR HGB CONC 33.1 G/DL (32.0-36.0); MEAN CORPUSCULAR VOLUME 96 FL (80-99); MEAN PLATELET VOLUME 7.6 FL (6.5-10.1); PLATELET COUNT 42 K/UL (150-450); RED BLOOD COUNT 2.74 M/UL (4.70-6.10); RED CELL DISTRIBUTION WIDTH 13.2 % (11.6-14.8)
[2017-07-21] MEDS ORDERED: Phytonadione 1 MG in D5W 55 ML IVPB ONE (10:00)
[2017-07-21 10:24] LABS: EOSINOPHILS % (MANUAL) 2 % (0-3); LYMPHOCYTES % (MANUAL) 8 % (20-45); NEUTROPHILS % (MANUAL) 82 % (45-75); TOTAL CELLS COUNTED 100
[2017-07-21 10:26] LABS: BAND NEUTROPHILS % (MANUAL) 0 % (0-8); BASOPHILS % (MANUAL) 0 % (0-2); PLATELET ESTIMATE DECREASED
[2017-07-21 10:27] LABS: ANISOCYTOSIS 1+; HYPOCHROMASIA 2+; PLATELET MORPHOLOGY NORMAL
[2017-07-21 10:35] LABS: REFLEX LACTIC ACID YES OR NO YES
[2017-07-21 10:40] LABS: ABG PCO2 37.5 mmHg (35.0-45.0)
[2017-07-21 10:41] LABS: ABG ALLEN TEST POSITIVE; ABG BASE EXCESS -1.5
--- NOTE | 2017-07-21 10:52 | Critical Care Progress Note ---
Assessment/Plan Assessment/Plan IMPRESSION sepsis elevated lactic acid respiratory failure ho alcholic liver disease seizure disorder acute renal failure possible GIB coffee ground emesis MRSA sepsis polymicrobial infection PLAN NGT ventilator management follow up ABG monitor PH and adjust vent- current setting adequate pressors and taper- as able seizure meds IV antibiotics noted ID evaluation monitor platelets GI evaluation- increase feeds monitor off diprivan off anticoag for now- resume when safe d/w family - discussing advance directives Critical Care - Subjective Interval Events: reduced LOC ROS Limited/Unobtainable: Yes Condition: critical EKG Rhythm: Sinus Rhythm I&O: Intake and Output 07/21/17 07/22/17 19:00 07:00 Intake Total 160 ml Output Total 250 ml Balance -90 ml Intake Free Water 100 ml Tube Feeding 60 ml Output Urine Total 250 ml Critical Care - Objective ET-Tube: 7.5 ET Position: 23 Last 24 Hour Vital Signs Date Time Temp Pulse Resp B/P (MAP) Pulse Ox O2 Delivery O2 Flow Rate FiO2 07/21/17 10:00 105 27 111/71 100 Mechanical Ventilator 45 07/21/17 09:45 101 27 104/59 100 Mechanical Ventilator 45 07/21/17 09:44 98.9 07/21/17 09:30 99 28 111/63 100 Mechanical Ventilator 45 07/21/17 09:15 100 28 108/66 100 Mechanical Ventilator 45 07/21/17 09:00 101 31 45 07/21/17 09:00 104 28 122/69 100 Mechanical Ventilator 45 07/21/17 08:45 103 28 136/76 100 Mechanical Ventilator 45 07/21/17 08:30 99.9 103 28 133/77 100 Mechanical Ventilator 45 07/21/17 08:15 103 28 143/86 100 Mechanical Ventilator 45 07/21/17 08:00 45 07/21/17 08:00 100 28 119/72 100 Mechanical Ventilator 45 07/21/17 07:45 97 28 121/83 100 Mechanical Ventilator 45 07/21/17 07:30 97 28 122/74 100 Mechanical Ventilator 45 07/21/17 07:00 103 29 45 07/21/17 07:00 98 27 122/67 100 Mechanical Ventilator 45 07/21/17 07:00 122/67 07/21/17 06:30 100 27 122/77 100 Mechanical Ventilator 45 07/21/17 06:00 129/73 07/21/17 06:00 104 29 129/73 100 Mechanical Ventilator 45 07/21/17 05:30 111 28 138/78 93 Mechanical Ventilator 45 07/21/17 05:12 101 28 45 07/21/17 05:00 116/62 07/21/17 05:00 98 25 116/63 100 Mechanical Ventilator 45 07/21/17 04:30 98.6 94 20 110/60 100 Mechanical Ventilator 45 07/21/17 04:00 94 07/21/17 04:00 92 24 60/63 100 Mechanical Ventilator 45 07/21/17 04:00 45 07/21/17 04:00 45 07/21/17 04:00 113/66 07/21/17 03:30 94 24 60/63 100 Mechanical Ventilator 45 07/21/17 03:25 94 27 45 07/21/17 03:00 109/63 07/21/17 03:00 94 24 109/63 100 Mechanical Ventilator 45 07/21/17 02:30 94 24 110/65 100 Mechanical Ventilator 45 07/21/17 02:00 91 23 102/66 100 Mechanical Ventilator 45 07/21/17 02:00 110/65 07/21/17 01:30 91 23 104/63 100 Mechanical Ventilator 45 07/21/17 01:15 93 27 45 07/21/17 01:00 90 27 106/64 100 Mechanical Ventilator 45 07/21/17 01:00 106/64 07/21/17 00:30 90 24 103/63 100 Mechanical Ventilator 45 07/21/17 00:00 45 07/21/17 00:00 102/66 07/21/17 00:00 92 07/21/17 00:00 97.7 91 23 102/66 100 Mechanical Ventilator 45 07/20/17 23:30 92 25 101/63 100 Mechanical Ventilator 45 07/20/17 23:15 87 23 45 07/20/17 23:00 99/59 07/20/17 23:00 88 23 99/59 100 Mechanical Ventilator 45 07/20/17 22:30 90 32 108/62 100 Mechanical Ventilator 45 07/20/17 22:00 89 22 104/59 100 Mechanical Ventilator 45 07/20/17 22:00 104/59 07/20/17 21:52 106/64 07/20/17 21:51 87 106/64 07/20/17 21:30 87 24 105/64 100 Mechanical Ventilator 45 07/20/17 21:21 86 21 45 07/20/17 21:00 87 24 106/65 100 Mechanical Ventilator 45 07/20/17 21:00 106/65 07/20/17 20:30 89 22 103/63 100 Mechanical Ventilator 45 07/20/17 20:00 92 07/20/17 20:00 97.6 92 25 104/59 100 Mechanical Ventilator 45 07/20/17 20:00 45 07/20/17 20:00 104/59 07/20/17 19:30 87 22 93/53 100 Mechanical Ventilator 45 07/20/17 19:07 84 21 45 07/20/17 19:00 86 22 98/60 100 Mechanical Ventilator 45 07/20/17 19:00 98/60 07/20/17 18:45 90 24 98/60 100 Mechanical Ventilator 45 07/20/17 18:30 89 24 96/52 100 Mechanical Ventilator 45 07/20/17 18:15 88 24 97/57 100 Mechanical Ventilator 45 07/20/17 18:00 93 26 87/56 100 Mechanical Ventilator 45 07/20/17 17:45 95 27 99/53 100 Mechanical Ventilator 45 07/20/17 17:30 89 23 90/57 100 Mechanical Ventilator 45 07/20/17 17:15 88 21 94/56 100 Mechanical Ventilator 45 07/20/17 17:08 88 27 45 07/20/17 17:00 90 22 95/65 100 Mechanical Ventilator 45 07/20/17 16:45 91 26 104/66 100 Mechanical Ventilator 45 07/20/17 16:30 90 22 97/61 100 Mechanical Ventilator 45 07/20/17 16:15 89 22 87/63 100 Mechanical Ventilator 45 07/20/17 16:00 45 07/20/17 16:00 91 07/20/17 16:00 98.6 89 21 97/60 100 Mechanical Ventilator 45 07/20/17 15:45 88 23 98/63 100 Mechanical Ventilator 45 07/20/17 15:30 87 21 91/58 100 Mechanical Ventilator 45 07/20/17 15:15 87 21 90/58 100 Mechanical Ventilator 45 07/20/17 15:00 89 22 89/56 100 Mechanical Ventilator 45 07/20/17 14:45 90 22 98/59 100 Mechanical Ventilator 45 07/20/17 14:44 90 26 45 07/20/17 14:30 91 22 96/58 100 Mechanical Ventilator 45 07/20/17 14:15 91 28 87/55 100 Mechanical Ventilator 45 07/20/17 14:11 99.0 07/20/17 14:00 100 28 83/54 100 Mechanical Ventilator 45 07/20/17 13:45 100 28 91/51 100 Mechanical Ventilator 45 07/20/17 13:30 100 28 87/56 100 Mechanical Ventilator 45 07/20/17 13:15 98 25 108/70 100 Mechanical Ventilator 45 07/20/17 13:12 98 28 45 07/20/17 13:00 100 29 97/59 100 Mechanical Ventilator 45 07/20/17 12:45 99.5 99 28 93/56 100 Mechanical Ventilator 45 07/20/17 12:30 99 28 104/57 100 Mechanical Ventilator 45 07/20/17 12:15 99 28 96/55 100 Mechanical Ventilator 45 07/20/17 12:00 99 27 95/57 100 Mechanical Ventilator 45 07/20/17 12:00 100 07/20/17 12:00 45 07/20/17 11:45 100 29 94/60 100 Mechanical Ventilator 45 07/20/17 11:30 100 28 97/51 100 Mechanical Ventilator 45 07/20/17 11:15 99 28 97/57 100 Mechanical Ventilator 45 07/20/17 11:00 99 27 97/56 100 Mechanical Ventilator 45 Objective: WDWN very ill intubated clear breath sounds bilaterally without rhonchi or wheeze [id number] mildly tachy without MRG NABS nontender no HSM no CC some edema diffusely reduced LOC EUSEBIO CRESPO Jul 21, 2017 10:52
[2017-07-21 13:00] LABS: ALANINE AMINOTRANSFERASE 14 U/L (12-78); ALBUMIN/GLOBULIN RATIO 0.5 (1.0-2.7); ANION GAP 8 mmol/L (5-15); ASPARTATE AMINO TRANSFERASE 30 U/L (15-37); CALCIUM 7.6 MG/DL (8.5-10.1); CARBON DIOXIDE 26 MMOL/L (21-32); CHLORIDE 113 MMOL/L (98-107); CREATININE 1.4 MG/DL (0.55-1.30); GLOMERULAR FILTRATION RATE > 60 mL/min (>60); MAGNESIUM 1.5 MG/DL (1.8-2.4); PHOSPHORUS 2.8 MG/DL (2.5-4.9); POTASSIUM 3.1 MMOL/L (3.5-5.1); SODIUM 146 MMOL/L (136-145); TOTAL PROTEIN 4.6 G/DL (6.4-8.2)
[2017-07-21 13:08] LABS: BILIRUBIN,DIRECT 4.7 MG/DL (0.0-0.3)
[2017-07-21] MEDS ORDERED: D5NS 1000ml IV ONE ×2 (16:25→16:26)
[2017-07-21] MEDS ORDERED: Tubing IV Secondary IV ONE (16:25)
[2017-07-21] MEDS ORDERED: Sterile Water Irrig 1000ml IRRIG ONE (16:26)
--- NOTE | 2017-07-21 17:51 | Wound Care Consultation ---
Wound Assessment Wound Assessment : Wound Number: 1 Wound Present on Admission: No New Wound: Yes Status Change of Wound: No Wound Location Body Site Modif: left, anterior Wound Location Body Site: hand Wound Type: blister Martin Test: Does not Martin Wound Thickness: Partial Thickness Wound Length: 0.5 Wound Width: 0.8 Percent of Wound [place]/Red: 100 Wound Drainage Amount: None Wound Drainage Odor: None/Absent Tissue Surrounding Wound: Erythemic Wound General Appearance: Reddened Wound Comment #1 Intact blister on left hand Recommendation -Local wound care per protocol -Optimize nutrition -Keep clean ad dry -Assess and f/u accordingly for any changes KELECHI IGNACIO RN Jul 21, 2017 17:51
[2017-07-21] MEDS: Dyna-Hex 2% Top Sol 2oz TOPIC SCH (19:36)
[2017-07-22] VITALS (25 sets, daily range): BP systolic 100–160; BP diastolic 58–89
[2017-07-22 04:54] LABS: MEAN CORPUSCULAR HEMOGLOBIN 31.9 PG (27.0-31.0); MEAN CORPUSCULAR HGB CONC 33.3 G/DL (32.0-36.0); MEAN CORPUSCULAR VOLUME 96 FL (80-99); MEAN PLATELET VOLUME 9.6 FL (6.5-10.1); PLATELET COUNT 52 K/UL (150-450); RED BLOOD COUNT 2.79 M/UL (4.70-6.10); RED CELL DISTRIBUTION WIDTH 13.4 % (11.6-14.8)
[2017-07-22 05:05] LABS: INR 1.2 (0.9-1.1); PROTHROMBIN TIME 12.8 SEC (9.30-11.50)
[2017-07-22 05:13] LABS: MAGNESIUM 1.8 MG/DL (1.8-2.4)
[2017-07-22 05:14] LABS: ALANINE AMINOTRANSFERASE 16 U/L (12-78); ALBUMIN/GLOBULIN RATIO 0.5 (1.0-2.7); ANION GAP 9 mmol/L (5-15); ASPARTATE AMINO TRANSFERASE 31 U/L (15-37); CARBON DIOXIDE 25 MMOL/L (21-32); CHLORIDE 110 MMOL/L (98-107); CREATININE 1.4 MG/DL (0.55-1.30); GLOMERULAR FILTRATION RATE > 60 mL/min (>60); POTASSIUM 3.4 MMOL/L (3.5-5.1); SODIUM 143 MMOL/L (136-145)
[2017-07-22 05:23] LABS: BILIRUBIN,DIRECT 4.2 MG/DL (0.0-0.3)
[2017-07-22] MEDS: metroNIDAZOLE 250mg tab GT SCH ×3 (05:50→21:55)
[2017-07-22 08:17] LABS: BAND NEUTROPHILS % (MANUAL) 0 % (0-8); BASOPHILS % (MANUAL) 0 % (0-2); EOSINOPHILS % (MANUAL) 4 % (0-3); HYPOCHROMASIA 1+; LYMPHOCYTES % (MANUAL) 11 % (20-45); NEUTROPHILS % (MANUAL) 83 % (45-75); PLATELET ESTIMATE DECREASED; PLATELET MORPHOLOGY NORMAL; TOTAL CELLS COUNTED 100
--- NOTE | 2017-07-22 08:56 | Critical Care Progress Note ---
Assessment/Plan Assessment/Plan IMPRESSION sepsis elevated lactic acid respiratory failure ho alcholic liver disease seizure disorder acute renal failure possible GIB coffee ground emesis MRSA sepsis polymicrobial infection KPC infection PLAN NGT ventilator management follow up ABG monitor PH and try to wean pressors off seizure meds IV antibiotics noted ID evaluation on feeds off anticoag for now- resume when safe d/w family - discussing advance directives awaiting head CT weaning assessment impression, plan, and exam edited and reviewed in detail care discussed with laser/electro optics technician - Subjective Interval Events: poor LOC cultures noted remains obtunded ROS Limited/Unobtainable: Yes Condition: critical EKG Rhythm: Sinus Rhythm Residuals: minimal Tube Feeding Tolerated: yes I&O: Intake and Output 07/22/17 07/23/17 19:00 07:00 Intake Total 30 ml Output Total 100 ml Balance -70 ml Tube Feeding 30 ml Output Urine Total 100 ml Critical Care - Objective ET-Tube: 7.5 ET Position: 23 Last 24 Hour Vital Signs Date Time Temp Pulse Resp B/P (MAP) Pulse Ox O2 Delivery O2 Flow Rate FiO2 07/22/17 08:44 125 25 40 07/22/17 08:00 99.2 126 26 152/82 100 Mechanical Ventilator 40 07/22/17 08:00 126 07/22/17 07:45 40 07/22/17 07:00 120 25 134/71 100 Mechanical Ventilator 40 07/22/17 06:48 118 26 40 07/22/17 06:00 115 26 135/72 100 Mechanical Ventilator 40 07/22/17 05:23 111 25 40 07/22/17 05:00 109 25 117/70 100 Mechanical Ventilator 40 07/22/17 04:00 99.1 109 24 121/70 100 Mechanical Ventilator 40 07/22/17 04:00 40 07/22/17 03:53 110 07/22/17 03:00 107 24 117/60 100 Mechanical Ventilator 40 07/22/17 02:34 105 25 40 07/22/17 02:00 104 25 133/89 100 Mechanical Ventilator 45 07/22/17 01:29 104 24 45 07/22/17 01:00 106 25 107/61 100 Mechanical Ventilator 45 07/22/17 00:00 102 07/22/17 00:00 45 07/22/17 00:00 99.0 102 26 100/58 100 Mechanical Ventilator 45 07/21/17 23:29 105 29 45 07/21/17 23:00 96 28 99/59 100 Mechanical Ventilator 45 07/21/17 22:00 92 23 106/64 100 Mechanical Ventilator 45 07/21/17 21:19 92 24 45 07/21/17 21:00 91 23 98/57 100 Mechanical Ventilator 45 07/21/17 20:08 96 07/21/17 20:00 98.6 90 22 101/61 100 Mechanical Ventilator 45 07/21/17 20:00 45 07/21/17 19:17 89 21 45 07/21/17 19:00 87 24 87/53 100 Mechanical Ventilator 45 07/21/17 18:00 87 24 95/59 100 Mechanical Ventilator 45 07/21/17 17:23 91 23 45 07/21/17 17:00 94 27 95/59 100 Mechanical Ventilator 45 07/21/17 16:00 45 07/21/17 16:00 95 07/21/17 16:00 98.7 96 27 93/56 100 Mechanical Ventilator 45 07/21/17 15:14 94 26 45 07/21/17 15:00 94 27 107/64 100 Mechanical Ventilator 45 07/21/17 14:00 97 27 106/59 100 Mechanical Ventilator 45 07/21/17 13:06 93 28 45 07/21/17 13:00 98 27 100/65 100 Mechanical Ventilator 45 07/21/17 12:00 94 07/21/17 12:00 98.9 94 27 93/57 100 Mechanical Ventilator 45 07/21/17 12:00 45 07/21/17 11:00 92 27 45 07/21/17 11:00 105/66 07/21/17 11:00 96 27 92/58 100 Mechanical Ventilator 45 07/21/17 10:30 100 27 96/63 100 Mechanical Ventilator 45 07/21/17 10:15 100 27 118/77 100 Mechanical Ventilator 45 07/21/17 10:00 118/77 07/21/17 10:00 105 27 111/71 100 Mechanical Ventilator 45 07/21/17 09:45 101 27 104/59 100 Mechanical Ventilator 45 07/21/17 09:44 98.9 07/21/17 09:30 99 28 111/63 100 Mechanical Ventilator 45 07/21/17 09:15 100 28 108/66 100 Mechanical Ventilator 45 07/21/17 09:00 101 31 45 07/21/17 09:00 108/66 07/21/17 09:00 104 28 122/69 100 Mechanical Ventilator 45 Labs: Labs Test 07/19/17 09:45 07/20/17 09:00 07/21/17 09:45 07/21/17 09:53 White Blood Count 8.8 K/UL (4.8-10.8) 10.0 K/UL (4.8-10.8) Red Blood Count 2.98 M/UL (4.70-6.10) 2.74 M/UL (4.70-6.10) Hemoglobin 9.4 G/DL (14.2-18.0) 8.7 G/DL (14.2-18.0) Hematocrit 28.1 % (42.0-52.0) 26.4 % (42.0-52.0) Mean Corpuscular Volume 95 FL (80-99) 96 FL (80-99) Mean Corpuscular Hemoglobin 31.6 PG (27.0-31.0) 31.8 PG (27.0-31.0) Mean Corpuscular Hemoglobin Concent 33.4 G/DL (32.0-36.0) 33.1 G/DL (32.0-36.0) Red Cell Distribution Width 13.4 % (11.6-14.8) 13.2 % (11.6-14.8) Platelet Count 38 K/UL (150-450) 42 K/UL (150-450) Mean Platelet Volume 11.4 FL (6.5-10.1) 7.6 FL (6.5-10.1) Neutrophils (%) (Auto) % (45.0-75.0) % (45.0-75.0) Lymphocytes (%) (Auto) % (20.0-45.0) % (20.0-45.0) Monocytes (%) (Auto) % (1.0-10.0) % (1.0-10.0) Eosinophils (%) (Auto) % (0.0-3.0) % (0.0-3.0) Basophils (%) (Auto) % (0.0-2.0) % (0.0-2.0) Differential Total Cells Counted 100 100 Neutrophils % (Manual) 84 % (45-75) 82 % (45-75) Lymphocytes % (Manual) 9 % (20-45) 8 % (20-45) Monocytes % (Manual) 6 % (1-10) 8 % (1-10) Eosinophils % (Manual) 1 % (0-3) 2 % (0-3) Basophils % (Manual) 0 % (0-2) 0 % (0-2) Band Neutrophils 0 % (0-8) 0 % (0-8) Platelet Estimate Decreased Decreased Platelet Morphology Normal Normal Hypochromasia 2+ 2+ Anisocytosis 1+ 1+ Spherocytes 1+ Sodium Level 138 MMOL/L (136-145) 146 MMOL/L (136-145) Potassium Level 3.1 MMOL/L (3.5-5.1) 3.1 MMOL/L (3.5-5.1) Chloride Level 107 MMOL/L (98-107) 113 MMOL/L (98-107) Carbon Dioxide Level 24 MMOL/L (21-32) 26 MMOL/L (21-32) Anion Gap 7 mmol/L (5-15) 8 mmol/L (5-15) Blood Urea Nitrogen 22 mg/dL (7-18) 16 mg/dL (7-18) Creatinine 1.5 MG/DL (0.55-1.30) 1.4 MG/DL (0.55-1.30) Estimat Glomerular Filtration Rate 57.1 mL/min (>60) > 60 mL/min (>60) Glucose Level 79 MG/DL (74-106) 111 MG/DL (74-106) Lactic Acid Level 3.70 mmol/L (0.66-2.22) 2.10 mmol/L (0.66-2.22) Calcium Level 7.7 MG/DL (8.5-10.1) 7.6 MG/DL (8.5-10.1) Phosphorus Level 1.8 MG/DL (2.5-4.9) 2.8 MG/DL (2.5-4.9) Magnesium Level 1.4 MG/DL (1.8-2.4) 1.5 MG/DL (1.8-2.4) Vancomycin Level Trough 7.9 ug/mL (5.0-12.0) Total Bilirubin 5.3 MG/DL (0.2-1.0) Direct Bilirubin 4.7 MG/DL (0.0-0.3) Aspartate Amino Transf (AST/SGOT) 30 U/L (15-37) Alanine Aminotransferase (ALT/SGPT) 14 U/L (12-78) Alkaline Phosphatase 122 U/L (46-116) Total Protein 4.6 G/DL (6.4-8.2) Albumin 1.6 G/DL (3.4-5.0) Globulin 3.0 g/dL Albumin/Globulin Ratio 0.5 (1.0-2.7) Test 07/21/17 10:32 07/22/17 04:00 07/22/17 04:30 Arterial Blood pH 7.400 (7.350-7.450) Arterial Blood Partial Pressure CO2 37.5 mmHg (35.0-45.0) Arterial Blood Partial Pressure O2 80.2 mmHg (75.0-100.0) Arterial Blood HCO3 22.9 mmol/L (22.0-26.0) Arterial Blood Oxygen Saturation 95.0 % (92.0-98.0) Arterial Blood Base Excess -1.5 Aston Test Positive Phosphorus Level 3.0 MG/DL (2.5-4.9) Magnesium Level 1.8 MG/DL (1.8-2.4) White Blood Count 11.0 K/UL (4.8-10.8) Red Blood Count 2.79 M/UL (4.70-6.10) Hemoglobin 8.9 G/DL (14.2-18.0) Hematocrit 26.7 % (42.0-52.0) Mean Corpuscular Volume 96 FL (80-99) Mean Corpuscular Hemoglobin 31.9 PG (27.0-31.0) Mean Corpuscular Hemoglobin Concent 33.3 G/DL (32.0-36.0) Red Cell Distribution Width 13.4 % (11.6-14.8) Platelet Count 52 K/UL (150-450) Mean Platelet Volume 9.6 FL (6.5-10.1) Neutrophils (%) (Auto) % (45.0-75.0) Lymphocytes (%) (Auto) % (20.0-45.0) Monocytes (%) (Auto) % (1.0-10.0) Eosinophils (%) (Auto) % (0.0-3.0) Basophils (%) (Auto) % (0.0-2.0) Differential Total Cells Counted 100 Neutrophils % (Manual) 83 % (45-75) Lymphocytes % (Manual) 11 % (20-45) Monocytes % (Manual) 2 % (1-10) Eosinophils % (Manual) 4 % (0-3) Basophils % (Manual) 0 % (0-2) Band Neutrophils 0 % (0-8) Platelet Estimate Decreased Platelet Morphology Normal Hypochromasia 1+ Prothrombin Time 12.8 SEC (9.30-11.50) Prothromb Time International Ratio 1.2 (0.9-1.1) Activated Partial Thromboplast Time 37 SEC (23-33) Sodium Level 143 MMOL/L (136-145) Potassium Level 3.4 MMOL/L (3.5-5.1) Chloride Level 110 MMOL/L (98-107) Carbon Dioxide Level 25 MMOL/L (21-32) Anion Gap 9 mmol/L (5-15) Blood Urea Nitrogen 18 mg/dL (7-18) Creatinine 1.4 MG/DL (0.55-1.30) Estimat Glomerular Filtration Rate > 60 mL/min (>60) Glucose Level 76 MG/DL (74-106) Calcium Level 8.0 MG/DL (8.5-10.1) Total Bilirubin 4.1 MG/DL (0.2-1.0) Direct Bilirubin 4.2 MG/DL (0.0-0.3) Aspartate Amino Transf (AST/SGOT) 31 U/L (15-37) Alanine Aminotransferase (ALT/SGPT) 16 U/L (12-78) Alkaline Phosphatase 144 U/L (46-116) Total Protein 5.0 G/DL (6.4-8.2) Albumin 1.7 G/DL (3.4-5.0) Globulin 3.3 g/dL Albumin/Globulin Ratio 0.5 (1.0-2.7) Objective: WDWN very ill intubated clear breath sounds bilaterally without rhonchi or wheeze [id number] without MRG NABS nontender no HSM; NGT no CC some edema mild reduced LOC EUSEBIO CRESPO Jul 22, 2017 08:56
[2017-07-22] MEDS: carBAMazepine 200mg tab GT SCH ×2 (09:42→20:31)
[2017-07-22] MEDS: Bactrim Susp 20ml GT SCH ×2 (09:43→20:32)
[2017-07-22] MEDS: Lacri-Lube Opth Oint 3.5gm BOTH EYES SCH ×2 (09:43→17:22)
[2017-07-22] MEDS: LaMICtal 150mg tab GT SCH (09:43)
[2017-07-22] MEDS: levETIRAcetam 500mg/5ml Liquid GT SCH ×2 (09:43→20:32)
[2017-07-22] MEDS: Vancomycin 1500mg IVPB SCH (09:43)
--- NOTE | 2017-07-22 09:59 | Diagnostic Imaging Report ---
Indication: SOB Technique: One view of the chest Comparison: 07/17/2017 Findings: Again demonstrated is diffuse bilateral interstitial and alveolar parenchymal disease, appearing unchanged. Nasogastric tube is no longer visible. Endotracheal tube remains in satisfactory position. Right jugular central venous catheter remains. Impression: Interim nasogastric tube removal. Otherwise, bulging over 4 days, findings as noted
[2017-07-22] MEDS: Phenylephrine 50 MG in D5W 245 ML IV SCH (11:15)
--- NOTE | 2017-07-22 11:26 | Infectious Diseases Prog Note ---
Assessment/Plan Assessment/Plan A; Shock MRSA sepsis Pneumonia with MRSA & KPC GI bleeding Hypoxic respiratory failure Acute renal failure improving Lactic acidosis Thrombocytopenia P; Continue Vancomycin, Bactrim & Flagyl Poor prognosis Subjective ROS Limited/Unobtainable: Yes Allergies: Coded Allergies: CODEINE (Verified Allergy, Unknown, 11/15/16) Objective Vital Signs Last 24 Hour Vital Signs Date Time Temp Pulse Resp B/P (MAP) Pulse Ox O2 Delivery O2 Flow Rate FiO2 07/22/17 10:30 122 24 133/76 100 Mechanical Ventilator 40 07/22/17 10:00 124 27 137/71 100 Mechanical Ventilator 40 07/22/17 09:00 124 27 102/65 100 Mechanical Ventilator 40 07/22/17 08:44 125 25 40 07/22/17 08:00 99.2 126 26 152/82 100 Mechanical Ventilator 40 07/22/17 08:00 126 07/22/17 07:45 40 07/22/17 07:00 120 25 134/71 100 Mechanical Ventilator 40 07/22/17 06:48 118 26 40 07/22/17 06:00 115 26 135/72 100 Mechanical Ventilator 40 07/22/17 05:23 111 25 40 07/22/17 05:00 109 25 117/70 100 Mechanical Ventilator 40 07/22/17 04:00 99.1 109 24 121/70 100 Mechanical Ventilator 40 07/22/17 04:00 40 07/22/17 03:53 110 07/22/17 03:00 107 24 117/60 100 Mechanical Ventilator 40 07/22/17 02:34 105 25 40 07/22/17 02:00 104 25 133/89 100 Mechanical Ventilator 45 07/22/17 01:29 104 24 45 07/22/17 01:00 106 25 107/61 100 Mechanical Ventilator 45 07/22/17 00:00 102 07/22/17 00:00 45 07/22/17 00:00 99.0 102 26 100/58 100 Mechanical Ventilator 45 07/21/17 23:29 105 29 45 07/21/17 23:00 96 28 99/59 100 Mechanical Ventilator 45 07/21/17 22:00 92 23 106/64 100 Mechanical Ventilator 45 07/21/17 21:19 92 24 45 07/21/17 21:00 91 23 98/57 100 Mechanical Ventilator 45 07/21/17 20:08 96 07/21/17 20:00 98.6 90 22 101/61 100 Mechanical Ventilator 45 07/21/17 20:00 45 07/21/17 19:17 89 21 45 07/21/17 19:00 87 24 87/53 100 Mechanical Ventilator 45 07/21/17 18:00 87 24 95/59 100 Mechanical Ventilator 45 07/21/17 17:23 91 23 45 07/21/17 17:00 94 27 95/59 100 Mechanical Ventilator 45 07/21/17 16:00 45 07/21/17 16:00 95 07/21/17 16:00 98.7 96 27 93/56 100 Mechanical Ventilator 45 07/21/17 15:14 94 26 45 07/21/17 15:00 94 27 107/64 100 Mechanical Ventilator 45 07/21/17 14:00 97 27 106/59 100 Mechanical Ventilator 45 07/21/17 13:06 93 28 45 07/21/17 13:00 98 27 100/65 100 Mechanical Ventilator 45 07/21/17 12:00 94 07/21/17 12:00 98.9 94 27 93/57 100 Mechanical Ventilator 45 07/21/17 12:00 45 Height (Feet): 5 Height (Inches): 9.00 Weight (Pounds): 196 HEENT: other - orally intubated Respiratory/Chest: lungs clear, other - on ventilator Cardiovascular: tachycardia, other - RIJ central line Abdomen: other - GT feeding Extremities: other - edema Neurologic/Psychiatric: other - Comatose Laboratory Tests Test 07/22/17 04:00 07/22/17 04:30 Phosphorus Level 3.0 MG/DL (2.5-4.9) Magnesium Level 1.8 MG/DL (1.8-2.4) White Blood Count 11.0 K/UL (4.8-10.8) H Red Blood Count 2.79 M/UL (4.70-6.10) L Hemoglobin 8.9 G/DL (14.2-18.0) L Hematocrit 26.7 % (42.0-52.0) L Mean Corpuscular Volume 96 FL (80-99) Mean Corpuscular Hemoglobin 31.9 PG (27.0-31.0) H Mean Corpuscular Hemoglobin Concent 33.3 G/DL (32.0-36.0) Red Cell Distribution Width 13.4 % (11.6-14.8) Platelet Count 52 K/UL (150-450) L Mean Platelet Volume 9.6 FL (6.5-10.1) Neutrophils (%) (Auto) % (45.0-75.0) Lymphocytes (%) (Auto) % (20.0-45.0) Monocytes (%) (Auto) % (1.0-10.0) Eosinophils (%) (Auto) % (0.0-3.0) Basophils (%) (Auto) % (0.0-2.0) Differential Total Cells Counted 100 Neutrophils % (Manual) 83 % (45-75) H Lymphocytes % (Manual) 11 % (20-45) L Monocytes % (Manual) 2 % (1-10) Eosinophils % (Manual) 4 % (0-3) H Basophils % (Manual) 0 % (0-2) Band Neutrophils 0 % (0-8) Platelet Estimate Decreased L Platelet Morphology Normal Hypochromasia 1+ Prothrombin Time 12.8 SEC (9.30-11.50) H Prothromb Time International Ratio 1.2 (0.9-1.1) H Activated Partial Thromboplast Time 37 SEC (23-33) H Sodium Level 143 MMOL/L (136-145) Potassium Level 3.4 MMOL/L (3.5-5.1) L Chloride Level 110 MMOL/L (98-107) H Carbon Dioxide Level 25 MMOL/L (21-32) Anion Gap 9 mmol/L (5-15) Blood Urea Nitrogen 18 mg/dL (7-18) Creatinine 1.4 MG/DL (0.55-1.30) H Estimat Glomerular Filtration Rate > 60 mL/min (>60) Glucose Level 76 MG/DL (74-106) Calcium Level 8.0 MG/DL (8.5-10.1) L Total Bilirubin 4.1 MG/DL (0.2-1.0) H Direct Bilirubin 4.2 MG/DL (0.0-0.3) H Aspartate Amino Transf (AST/SGOT) 31 U/L (15-37) Alanine Aminotransferase (ALT/SGPT) 16 U/L (12-78) Alkaline Phosphatase 144 U/L (46-116) H Total Protein 5.0 G/DL (6.4-8.2) L Albumin 1.7 G/DL (3.4-5.0) L Globulin 3.3 g/dL Albumin/Globulin Ratio 0.5 (1.0-2.7) L Current Medications Medications (Trade) Dose Ordered Sig/Romelia Route PRN Reason Start Time Stop Time Status Last Admin Dose Admin Acetaminophen (Tylenol) 650 mg Q4H PRN ORAL Mild Pain/Temp > 100.5 07/14/17 20:00 08/13/17 19:59 07/21/17 08:45 Acetaminophen (Tylenol) 650 mg Q4H PRN ORAL Fever/Headache/Mild Pain 07/14/17 20:00 08/13/17 19:59 07/20/17 13:29 Artificial Tears (Lacri-Lube) 1 applic BID BOTH EYES 07/20/17 11:15 08/19/17 11:14 07/22/17 09:43 Carbamazepine (TEGretol) 250 mg Q12HR GT 07/14/17 21:00 08/13/17 20:59 07/22/17 09:42 Chlorhexidine Gluconate (Natalie-Hex 2%) 1 applic DAILY@2000 TOPIC 07/16/17 20:00 08/15/17 19:59 07/21/17 19:36 Lamotrigine (LaMICtal) 300 mg DAILY GT 07/15/17 09:00 08/14/17 08:59 07/22/17 09:43 Lansoprazole (Prevacid) 30 mg Q12HR GT 07/15/17 13:00 08/14/17 12:59 07/22/17 09:42 Levetiracetam (Keppra) 1,500 mg Q12HR GT 07/16/17 21:00 08/15/17 20:59 07/22/17 09:43 Metronidazole (Flagyl) 250 mg Q8HR GT 07/16/17 12:30 07/23/17 12:29 07/22/17 05:50 Norepinephrine Bitartrate 4 mg/ Dextrose 250 ml @ 0 mls/hr Q24H IV 07/15/17 11:15 08/14/17 11:14 07/20/17 21:52 Phenylephrine HCl 50 mg/Dextrose 250 ml @ 0 mls/hr Q24H IV 07/15/17 11:15 08/14/17 11:14 07/20/17 21:51 Sodium Chloride 1,000 ml @ 100 mls/hr Q10H IV 07/21/17 15:30 08/20/17 15:29 07/22/17 01:58 Trimethoprim/ Sulfamethoxazole (Bactrim-DS) 10 ml EVERY 12 HOURS GT 07/19/17 21:00 07/26/17 20:59 07/22/17 09:43 Vancomycin HCl (Vanco rx to dose) 1 ea DAILY PRN MISC Per rx protocol 07/18/17 09:30 08/17/17 09:29 Vancomycin HCl/ Dextrose 250 ml @ 125 mls/hr Q24H IVPB 07/21/17 10:00 07/26/17 09:59 07/22/17 09:43 ANDRZEJ JAMES Jul 22, 2017 11:26
--- NOTE | 2017-07-22 12:19 | Diagnostic Imaging Report ---
Indications: Altered mental status Technique: Spiral acquisitions obtained through the brain. Angled axial and coronal 5 x 5 mm slices were reconstructed. Total dose length product 1594 mGycm. CTDI vol(s) 70 mGy. Dose reduction achieved using automated exposure control Comparison: 12/12/2016 Findings: There is diffuse low-attenuation of most of the parietal lobe and posterior temporal and occipital lobes, with increasing volume loss and resulting in increasing ex vacuo dilatation of the occipital horn and atrium and temporal horn of the right lateral ventricle. The low-attenuation mostly involves the deep white matter and is more striking posteriorly. There is a left thalamic lacunar infarct which was not evident previously but does not appear acute. There is generalized enlargement of ventricles and extra-axial CSF spaces and periventricular the white matter chronic ischemic change. There is low-attenuation in the left cerebral peduncle and midbrain which is not clearly evident previously. No acute hemorrhage or edema. No mass effect or midline shift. There is Impression: Developing encephalomalacia of much of the left parietal and occipital lobes, as well as the posterior temporal lobe, since 12/12/2016. 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 Resultant ex vacuo dilatation of the posterior right lateral ventricle Negative for acute intracranial bleed or mass effect Left thalamic lacunar infarct. Possible infarct of the left midbrain and cerebral peduncle Other chronic and age-related changes, as described The CT scanner at [facility] is accredited by the [place] [employer] [employer] and the scans are performed using protocols designed to limit radiation exposure to as low as reasonably achievable to attain images of sufficient resolution adequate for diagnostic evaluation.
[2017-07-22] MEDS: Acetaminophen 650mg/20.3ml ORAL PRN (18:16)
[2017-07-22] MEDS ORDERED: 1/2 NS 1000ml IV ONE (18:24)
[2017-07-22] MEDS ORDERED: D5NS 1000ml IV ONE (18:24)
[2017-07-22] MEDS: Dyna-Hex 2% Top Sol 2oz TOPIC SCH (20:31)
--- NOTE | 2017-07-22 22:43 | General Progress Note ---
Assessment/Plan Assessment/Plan Assessment - UGIB - stabilized - shock- stabilized - severe thrombocytopenia - cirrhosis, over 50K now - lactic acidosis - resp failure - renal failure - Cirrhotic liver - Gurded Recommendations - platelet transfusion PRN - continue TF - supportive care - will consider EGD this week - pulmonary f/u - abx - PPI Subjective Allergies: Coded Allergies: CODEINE (Verified Allergy, Unknown, 11/15/16) Subjective Above noted doing better since last week off pressors tolerating TF H&H stable U/S suggestive of cirrhosis Objective Last 24 Hour Vital Signs Date Time Temp Pulse Resp B/P (MAP) Pulse Ox O2 Delivery O2 Flow Rate FiO2 07/22/17 21:30 113 22 40 07/22/17 20:00 40 07/22/17 19:29 111 22 40 07/22/17 19:06 98.3 07/22/17 19:00 98.3 114 22 137/71 100 Mechanical Ventilator 40 07/22/17 18:00 119 27 158/81 100 Mechanical Ventilator 40 07/22/17 17:13 121 24 40 07/22/17 17:00 123 24 157/82 100 Mechanical Ventilator 40 07/22/17 16:00 99.5 122 25 148/78 100 Mechanical Ventilator 40 07/22/17 16:00 40 07/22/17 16:00 121 07/22/17 15:20 122 25 40 07/22/17 15:15 100 07/22/17 15:00 122 25 160/84 100 Mechanical Ventilator 40 07/22/17 14:35 121 24 40 07/22/17 14:00 120 25 157/67 100 Mechanical Ventilator 40 07/22/17 13:00 120 26 119/67 100 Mechanical Ventilator 40 07/22/17 12:52 120 24 40 07/22/17 12:00 117 07/22/17 12:00 99.1 119 24 137/72 100 Mechanical Ventilator 40 07/22/17 12:00 40 07/22/17 11:31 120 28 40 07/22/17 11:30 119 26 136/78 100 Mechanical Ventilator 40 07/22/17 11:15 120 119/71 07/22/17 11:15 119/71 07/22/17 10:30 122 24 133/76 100 Mechanical Ventilator 40 07/22/17 10:00 124 27 137/71 100 Mechanical Ventilator 40 07/22/17 09:00 124 27 102/65 100 Mechanical Ventilator 40 07/22/17 08:44 125 25 40 07/22/17 08:00 99.2 126 26 152/82 100 Mechanical Ventilator 40 07/22/17 08:00 126 07/22/17 07:45 40 07/22/17 07:00 120 25 134/71 100 Mechanical Ventilator 40 07/22/17 06:48 118 26 40 07/22/17 06:00 115 26 135/72 100 Mechanical Ventilator 40 07/22/17 05:23 111 25 40 07/22/17 05:00 109 25 117/70 100 Mechanical Ventilator 40 07/22/17 04:00 99.1 109 24 121/70 100 Mechanical Ventilator 40 07/22/17 04:00 40 07/22/17 03:53 110 07/22/17 03:00 107 24 117/60 100 Mechanical Ventilator 40 07/22/17 02:34 105 25 40 07/22/17 02:00 104 25 133/89 100 Mechanical Ventilator 45 07/22/17 01:29 104 24 45 07/22/17 01:00 106 25 107/61 100 Mechanical Ventilator 45 07/22/17 00:00 102 07/22/17 00:00 45 07/22/17 00:00 99.0 102 26 100/58 100 Mechanical Ventilator 45 07/21/17 23:29 105 29 45 07/21/17 23:00 96 28 99/59 100 Mechanical Ventilator 45 Intake and Output 07/22/17 07/23/17 19:00 07:00 Intake Total 1890 ml Output Total 630 ml Balance 1260 ml Intake Free Water 50 ml IV Total 1225 ml Tube Feeding 410 ml Other 205 ml Output Urine Total 630 ml Laboratory Tests 07/22/17 04:00: Phosphorus Level 3.0, Magnesium Level 1.8 07/22/17 04:30: White Blood Count 11.0H, Red Blood Count 2.79L, Hemoglobin 8.9L, Hematocrit 26.7L, Mean Corpuscular Volume 96, Mean Corpuscular Hemoglobin 31.9H, Mean Corpuscular Hemoglobin Concent 33.3, Red Cell Distribution Width 13.4, Platelet Count 52L, Mean Platelet Volume 9.6, Neutrophils (%) (Auto) , Lymphocytes (%) ( Auto) , Monocytes (%) (Auto) , Eosinophils (%) (Auto) , Basophils (%) (Auto) , Differential Total Cells Counted 100, Neutrophils % (Manual) 83H, Lymphocytes % (Manual) 11L, Monocytes % (Manual) 2, Eosinophils % (Manual) 4H, Basophils % ( Manual) 0, Band Neutrophils 0, Platelet Estimate DecreasedL, Platelet Morphology Normal, Hypochromasia 1+, Prothrombin Time 12.8H, Prothromb Time International Ratio 1.2H, Activated Partial Thromboplast Time 37H, Sodium Level 143, Potassium Level 3.4L, Chloride Level 110H, Carbon Dioxide Level 25, Anion Gap 9, Blood Urea Nitrogen 18, Creatinine 1.4H, Estimat Glomerular Filtration Rate > 60, Glucose Level 76, Calcium Level 8.0L, Total Bilirubin 4.1H, Direct Bilirubin 4.2H, Aspartate Amino Transf (AST/SGOT) 31, Alanine Aminotransferase ( ALT/SGPT) 16, Alkaline Phosphatase 144H, Total Protein 5.0L, Albumin 1.7L, Globulin 3.3, Albumin/Globulin Ratio 0.5L Height (Feet): 5 Height (Inches): 9.00 Weight (Pounds): 196 Objective WDWN AA man NCAT supple Coarse BS RR abd soft, (+) GT trace edema obtunded MANNY KAUR Jul 22, 2017 22:43
[2017-07-23] VITALS (24 sets, daily range): BP systolic 96–158; BP diastolic 55–96
[2017-07-23] MEDS: metroNIDAZOLE 250mg tab GT SCH (05:56)
[2017-07-23] MEDS: levETIRAcetam 500mg/5ml Liquid GT SCH ×2 (08:48→20:36)
[2017-07-23] MEDS: Bactrim Susp 20ml GT SCH ×2 (08:48→20:35)
[2017-07-23] MEDS: carBAMazepine 200mg tab GT SCH ×2 (08:49→20:36)
[2017-07-23] MEDS: LaMICtal 150mg tab GT SCH (08:50)
[2017-07-23 09:54] LABS: ANION GAP 6 mmol/L (5-15); CALCIUM 7.6 MG/DL (8.5-10.1); CARBON DIOXIDE 25 MMOL/L (21-32); CHLORIDE 111 MMOL/L (98-107); CREATININE 1.6 MG/DL (0.55-1.30); MEAN CORPUSCULAR HEMOGLOBIN 33.3 PG (27.0-31.0); MEAN CORPUSCULAR HGB CONC 34.2 G/DL (32.0-36.0); MEAN CORPUSCULAR VOLUME 97 FL (80-99); MEAN PLATELET VOLUME 12.4 FL (6.5-10.1); PLATELET COUNT 61 K/UL (150-450); POTASSIUM 3.8 MMOL/L (3.5-5.1); RED BLOOD COUNT 2.44 M/UL (4.70-6.10); SODIUM 142 MMOL/L (136-145); WHITE BLOOD COUNT 7.9 K/UL (4.8-10.8)
[2017-07-23] MEDS: Lacri-Lube Opth Oint 3.5gm BOTH EYES SCH ×2 (09:55→17:25)
[2017-07-23 09:58] LABS: INR 1.3 (0.9-1.1); PROTHROMBIN TIME 13.5 SEC (9.30-11.50)
[2017-07-23 10:07] LABS: ALANINE AMINOTRANSFERASE 13 U/L (12-78); ALBUMIN/GLOBULIN RATIO 0.5 (1.0-2.7); ASPARTATE AMINO TRANSFERASE 32 U/L (15-37)
[2017-07-23 10:14] LABS: BILIRUBIN,DIRECT 3.3 MG/DL (0.0-0.3)
[2017-07-23 10:21] LABS: ANISOCYTOSIS 1+; BAND NEUTROPHILS % (MANUAL) 0 % (0-8); BASOPHILS % (MANUAL) 0 % (0-2); EOSINOPHILS % (MANUAL) 1 % (0-3); HYPOCHROMASIA 2+; LYMPHOCYTES % (MANUAL) 23 % (20-45); NEUTROPHILS % (MANUAL) 71 % (45-75); PLATELET ESTIMATE DECREASED; TOTAL CELLS COUNTED 100
[2017-07-23 10:25] LABS: PLATELET MORPHOLOGY NORMAL
[2017-07-23] MEDS: Vancomycin 1500mg IVPB SCH (10:29)
[2017-07-23] MEDS: Phenylephrine 50 MG in D5W 245 ML IV SCH (11:15)
[2017-07-23 11:30] LABS: ABG ALLEN TEST POSITIVE; ABG BASE EXCESS -1.1; ABG PCO2 33.5 mmHg (35.0-45.0)
--- NOTE | 2017-07-23 11:40 | Critical Care Progress Note ---
Assessment/Plan Assessment/Plan IMPRESSION sepsis elevated lactic acid respiratory failure ho alcholic liver disease seizure disorder acute renal failure possible GIB coffee ground emesis MRSA sepsis polymicrobial infection KPC infection PLAN NGT ventilator management and try to wean follow up ABG monitor PH and try to wean pressors off seizure meds IV antibiotics noted ID evaluation noted on feeds off anticoag for now- resume when safe d/w family - discussing advance directives reviewed head CT weaning assessment and trial if able still with poor LOC may need transfusion impression, plan, and exam edited and reviewed in detail care discussed with integrated circuit ic layout designer - Subjective ROS Limited/Unobtainable: Yes Condition: critical EKG Rhythm: Sinus Rhythm Residuals: minimal Tube Feeding Tolerated: yes I&O: Intake and Output 07/23/17 07/24/17 19:00 07:00 Intake Total 490 ml Output Total 270 ml Balance 220 ml IV Total 300 ml Tube Feeding 160 ml Other 30 ml Output Urine Total 270 ml Critical Care - Objective ET-Tube: 7.5 ET Position: 23 Last 24 Hour Vital Signs Date Time Temp Pulse Resp B/P (MAP) Pulse Ox O2 Delivery O2 Flow Rate FiO2 07/23/17 11:17 108 27 40 07/23/17 11:00 100 22 101/56 100 Mechanical Ventilator 40 07/23/17 10:00 106 27 132/77 100 Mechanical Ventilator 40 07/23/17 09:43 101 22 40 07/23/17 09:42 100 07/23/17 09:00 100 21 112/67 100 Mechanical Ventilator 40 07/23/17 08:00 99.9 102 21 99/55 100 Mechanical Ventilator 40 07/23/17 08:00 40 07/23/17 08:00 99 07/23/17 07:00 100 20 117/68 100 Mechanical Ventilator 40 07/23/17 06:55 100.1 07/23/17 06:55 106 25 40 07/23/17 06:00 103 20 129/65 100 Mechanical Ventilator 40 07/23/17 05:03 106 22 40 07/23/17 05:00 112 20 133/62 100 Mechanical Ventilator 40 07/23/17 04:00 100.6 105 20 119/69 100 Mechanical Ventilator 40 07/23/17 04:00 110 07/23/17 04:00 40 07/23/17 03:30 110 20 40 07/23/17 03:00 110 20 123/75 100 Mechanical Ventilator 40 07/23/17 02:00 108 20 109/71 100 Mechanical Ventilator 40 07/23/17 01:14 110 22 40 07/23/17 01:00 108 21 131/70 100 Mechanical Ventilator 40 07/23/17 00:00 98.9 112 21 128/73 100 Mechanical Ventilator 40 07/23/17 00:00 112 07/22/17 23:30 109 21 40 07/22/17 23:00 112 21 113/61 100 Mechanical Ventilator 40 07/22/17 22:00 114 22 127/71 100 Mechanical Ventilator 40 07/22/17 21:30 113 22 40 07/22/17 21:00 115 20 124/67 100 Mechanical Ventilator 40 07/22/17 20:00 98.4 120 22 144/79 100 Mechanical Ventilator 40 07/22/17 20:00 40 07/22/17 19:29 111 22 40 07/22/17 19:06 98.3 07/22/17 19:00 98.3 114 22 137/71 100 Mechanical Ventilator 40 07/22/17 18:00 119 27 158/81 100 Mechanical Ventilator 40 07/22/17 17:13 121 24 40 07/22/17 17:00 123 24 157/82 100 Mechanical Ventilator 40 07/22/17 16:00 99.5 122 25 148/78 100 Mechanical Ventilator 40 07/22/17 16:00 40 07/22/17 16:00 121 07/22/17 15:20 122 25 40 07/22/17 15:15 100 07/22/17 15:00 122 25 160/84 100 Mechanical Ventilator 40 07/22/17 14:35 121 24 40 07/22/17 14:00 120 25 157/67 100 Mechanical Ventilator 40 07/22/17 13:00 120 26 119/67 100 Mechanical Ventilator 40 07/22/17 12:52 120 24 40 07/22/17 12:00 117 07/22/17 12:00 99.1 119 24 137/72 100 Mechanical Ventilator 40 07/22/17 12:00 40 Objective: WDWN very ill intubated clear breath sounds bilaterally without rhonchi or wheeze [id number] without MRG NABS nontender no HSM; NGT no CC some edema mild reduced LOC EUSEBIO CRESPO Jul 23, 2017 11:40
--- NOTE | 2017-07-23 12:29 | Infectious Diseases Prog Note ---
"Assessment/Plan Assessment/Plan antibiotics : vancomycin, bactrim, flagyl A 1. MRSA | klebsiella pneumonia 2. respiratory failure 3. thrombocytopenia improving 4. MRSA sepsis 5. renal failure 6. HTN 7. leucocytosis improving P 1. continue vancomycin iv, flagyl 2. continue bactrim 3. will follow up cultures Subjective ROS Limited/Unobtainable: Yes Allergies: Coded Allergies: CODEINE (Verified Allergy, Unknown, 11/15/16) Objective Vital Signs Last 24 Hour Vital Signs Date Time Temp Pulse Resp B/P (MAP) Pulse Ox O2 Delivery O2 Flow Rate FiO2 07/23/17 12:00 103 07/23/17 12:00 99.1 104 23 122/69 100 Mechanical Ventilator 40 07/23/17 11:17 108 27 40 07/23/17 11:15 105 101/59 07/23/17 11:15 101/59 07/23/17 11:00 100 22 101/56 100 Mechanical Ventilator 40 07/23/17 10:00 106 27 132/77 100 Mechanical Ventilator 40 07/23/17 10:00 40 07/23/17 09:43 101 22 40 07/23/17 09:42 100 07/23/17 09:00 100 21 112/67 100 Mechanical Ventilator 40 07/23/17 08:00 99.9 102 21 99/55 100 Mechanical Ventilator 40 07/23/17 08:00 40 07/23/17 08:00 99 07/23/17 07:00 100 20 117/68 100 Mechanical Ventilator 40 07/23/17 06:55 100.1 07/23/17 06:55 106 25 40 07/23/17 06:00 103 20 129/65 100 Mechanical Ventilator 40 07/23/17 05:03 106 22 40 07/23/17 05:00 112 20 133/62 100 Mechanical Ventilator 40 07/23/17 04:00 100.6 105 20 119/69 100 Mechanical Ventilator 40 07/23/17 04:00 110 07/23/17 04:00 40 07/23/17 03:30 110 20 40 07/23/17 03:00 110 20 123/75 100 Mechanical Ventilator 40 07/23/17 02:00 108 20 109/71 100 Mechanical Ventilator 40 07/23/17 01:14 110 22 40 07/23/17 01:00 108 21 131/70 100 Mechanical Ventilator 40 07/23/17 00:00 98.9 112 21 128/73 100 Mechanical Ventilator 40 07/23/17 00:00 112 07/22/17 23:30 109 21 40 07/22/17 23:00 112 21 113/61 100 Mechanical Ventilator 40 07/22/17 22:00 114 22 127/71 100 Mechanical Ventilator 40 07/22/17 21:30 113 22 40 07/22/17 21:00 115 20 124/67 100 Mechanical Ventilator 40 07/22/17 20:00 98.4 120 22 144/79 100 Mechanical Ventilator 40 07/22/17 20:00 40 07/22/17 19:29 111 22 40 07/22/17 19:06 98.3 07/22/17 19:00 98.3 114 22 137/71 100 Mechanical Ventilator 40 07/22/17 18:00 119 27 158/81 100 Mechanical Ventilator 40 07/22/17 17:13 121 24 40 07/22/17 17:00 123 24 157/82 100 Mechanical Ventilator 40 07/22/17 16:00 99.5 122 25 148/78 100 Mechanical Ventilator 40 07/22/17 16:00 40 07/22/17 16:00 121 07/22/17 15:20 122 25 40 07/22/17 15:15 100 07/22/17 15:00 122 25 160/84 100 Mechanical Ventilator 40 07/22/17 14:35 121 24 40 07/22/17 14:00 120 25 157/67 100 Mechanical Ventilator 40 07/22/17 13:00 120 26 119/67 100 Mechanical Ventilator 40 07/22/17 12:52 120 24 40 Height (Feet): 5 Height (Inches): 9.00 Weight (Pounds): 195 HEENT: other - intubated Respiratory/Chest: lungs clear Cardiovascular: normal rate, regular rhythm, no gallop/murmur Abdomen: soft, non tender, other - GT Extremities: other - + edema, right IJ catheter Laboratory Tests Test 07/23/17 08:45 07/23/17 10:00 07/23/17 11:15 White Blood Count 7.9 K/UL (4.8-10.8) Red Blood Count 2.44 M/UL (4.70-6.10) L Hemoglobin 8.1 G/DL (14.2-18.0) L Hematocrit 23.8 % (42.0-52.0) L Mean Corpuscular Volume 97 FL (80-99) Mean Corpuscular Hemoglobin 33.3 PG (27.0-31.0) H Mean Corpuscular Hemoglobin Concent 34.2 G/DL (32.0-36.0) Red Cell Distribution Width 14.0 % (11.6-14.8) Platelet Count 61 K/UL (150-450) L Mean Platelet Volume 12.4 FL (6.5-10.1) H Neutrophils (%) (Auto) % (45.0-75.0) Lymphocytes (%) (Auto) % (20.0-45.0) Monocytes (%) (Auto) % (1.0-10.0) Eosinophils (%) (Auto) % (0.0-3.0) Basophils (%) (Auto) % (0.0-2.0) Differential Total Cells Counted 100 Neutrophils % (Manual) 71 % (45-75) Lymphocytes % (Manual) 23 % (20-45) Monocytes % (Manual) 5 % (1-10) Eosinophils % (Manual) 1 % (0-3) Basophils % (Manual) 0 % (0-2) Band Neutrophils 0 % (0-8) Platelet Estimate Decreased L Platelet Morphology Normal Hypochromasia 2+ Anisocytosis 1+ Prothrombin Time 13.5 SEC (9.30-11.50) H Prothromb Time International Ratio 1.3 (0.9-1.1) H Activated Partial Thromboplast Time 36 SEC (23-33) H Sodium Level 142 MMOL/L (136-145) Potassium Level 3.8 MMOL/L (3.5-5.1) Chloride Level 111 MMOL/L (98-107) H Carbon Dioxide Level 25 MMOL/L (21-32) Anion Gap 6 mmol/L (5-15) Blood Urea Nitrogen 23 mg/dL (7-18) H Creatinine 1.6 MG/DL (0.55-1.30) H Estimat Glomerular Filtration Rate 53.0 mL/min (>60) Glucose Level 81 MG/DL (74-106) Calcium Level 7.6 MG/DL (8.5-10.1) L Total Bilirubin 3.8 MG/DL (0.2-1.0) H Direct Bilirubin 3.3 MG/DL (0.0-0.3) H Aspartate Amino Transf (AST/SGOT) 32 U/L (15-37) Alanine Aminotransferase (ALT/SGPT) 13 U/L (12-78) Alkaline Phosphatase 148 U/L (46-116) H Total Protein 5.0 G/DL (6.4-8.2) L Albumin 1.7 G/DL (3.4-5.0) L Globulin 3.3 g/dL Albumin/Globulin Ratio 0.5 (1.0-2.7) L Alpha Fetoprotein Pending Vancomycin Level Trough 10.2 ug/mL (5.0-12.0) Ammonia 55 umol/L (11-32) H Arterial Blood pH 7.449 (7.350-7.450) Arterial Blood Partial Pressure CO2 33.5 mmHg (35.0-45.0) L Arterial Blood Partial Pressure O2 118.0 mmHg (75.0-100.0) H Arterial Blood HCO3 22.7 mmol/L (22.0-26.0) Arterial Blood Oxygen Saturation 97.7 % (92.0-98.0) Arterial Blood Base Excess -1.1 Aston Test Positive NIKOLAY HANNA Jul 23, 2017 12:29"
[2017-07-23 13:43] LABS: ABG ALLEN TEST POSITIVE; ABG BASE EXCESS -1.9; ABG PCO2 41.7 mmHg (35.0-45.0)
[2017-07-23] MEDS ORDERED: 1/2 NS 1000ml IV ONE (16:37)
[2017-07-23] MEDS ORDERED: NS 500ML ONE (16:37)
--- NOTE | 2017-07-23 19:50 | General Progress Note ---
Assessment/Plan Assessment/Plan Assessment - UGIB - stabilized - shock- stabilized - severe thrombocytopenia - lactic acidosis - improved - resp failure - renal failure - Cirrhotic liver - Guarded Recommendations - platelet transfusion PRN - continue TF - supportive care - EGD in am - pulmonary f/u - abx - PPI Subjective Allergies: Coded Allergies: CODEINE (Verified Allergy, Unknown, 11/15/16) Subjective Above noted doing better since last week off pressors tolerating TF d/w patient's daughter re EGD Objective Last 24 Hour Vital Signs Date Time Temp Pulse Resp B/P (MAP) Pulse Ox O2 Delivery O2 Flow Rate FiO2 07/23/17 19:09 105 28 40 07/23/17 18:00 102 22 106/63 100 Mechanical Ventilator 40 07/23/17 17:00 105 27 120/69 100 Mechanical Ventilator 40 07/23/17 16:58 98 23 40 07/23/17 16:00 103 07/23/17 16:00 40 07/23/17 16:00 98.7 105 27 96/57 100 Mechanical Ventilator 40 07/23/17 15:00 110 29 156/92 100 Mechanical Ventilator 40 07/23/17 14:53 108 25 40 07/23/17 14:00 112 25 158/96 100 Mechanical Ventilator 40 07/23/17 13:05 109 29 40 07/23/17 13:00 108 24 153/83 100 Mechanical Ventilator 40 07/23/17 12:00 103 07/23/17 12:00 99.1 104 23 122/69 100 Mechanical Ventilator 40 07/23/17 11:17 108 27 40 07/23/17 11:15 105 101/59 07/23/17 11:15 101/59 07/23/17 11:00 100 22 101/56 100 Mechanical Ventilator 40 07/23/17 10:00 106 27 132/77 100 Mechanical Ventilator 40 07/23/17 10:00 40 07/23/17 09:43 101 22 40 07/23/17 09:42 100 07/23/17 09:00 100 21 112/67 100 Mechanical Ventilator 40 07/23/17 08:00 99.9 102 21 99/55 100 Mechanical Ventilator 40 07/23/17 08:00 40 07/23/17 08:00 99 07/23/17 07:00 100 20 117/68 100 Mechanical Ventilator 40 07/23/17 06:55 100.1 12/12/17 06:55 106 25 40 07/23/17 06:00 103 20 129/65 100 Mechanical Ventilator 40 07/23/17 05:03 106 22 40 07/23/17 05:00 112 20 133/62 100 Mechanical Ventilator 40 07/23/17 04:00 100.6 105 20 119/69 100 Mechanical Ventilator 40 07/23/17 04:00 110 07/23/17 04:00 40 07/23/17 03:30 110 20 40 07/23/17 03:00 110 20 123/75 100 Mechanical Ventilator 40 07/23/17 02:00 108 20 109/71 100 Mechanical Ventilator 40 07/23/17 01:14 110 22 40 07/23/17 01:00 108 21 131/70 100 Mechanical Ventilator 40 07/23/17 00:00 98.9 112 21 128/73 100 Mechanical Ventilator 40 07/23/17 00:00 112 07/22/17 23:30 109 21 40 07/22/17 23:00 112 21 113/61 100 Mechanical Ventilator 40 07/22/17 22:00 114 22 127/71 100 Mechanical Ventilator 40 07/22/17 21:30 113 22 40 07/22/17 21:00 115 20 124/67 100 Mechanical Ventilator 40 07/22/17 20:00 98.4 120 22 144/79 100 Mechanical Ventilator 40 07/22/17 20:00 40 Intake and Output 07/23/17 07/24/17 19:00 07:00 Intake Total 1710 ml Output Total 650 ml Balance 1060 ml IV Total 1150 ml Tube Feeding 490 ml Other 70 ml Output Urine Total 650 ml Laboratory Tests 07/23/17 08:45: White Blood Count 7.9, Red Blood Count 2.44L, Hemoglobin 8.1L, Hematocrit 23.8L , Mean Corpuscular Volume 97, Mean Corpuscular Hemoglobin 33.3H, Mean Corpuscular Hemoglobin Concent 34.2, Red Cell Distribution Width 14.0, Platelet Count 61L, Mean Platelet Volume 12.4H, Neutrophils (%) (Auto) , Lymphocytes (%) (Auto) , Monocytes (%) (Auto) , Eosinophils (%) (Auto) , Basophils (%) (Auto) , Differential Total Cells Counted 100, Neutrophils % (Manual) 71, Lymphocytes % ( Manual) 23, Monocytes % (Manual) 5, Eosinophils % (Manual) 1, Basophils % ( Manual) 0, Band Neutrophils 0, Platelet Estimate DecreasedL, Platelet Morphology Normal, Hypochromasia 2+, Anisocytosis 1+, Prothrombin Time 13.5H, Prothromb Time International Ratio 1.3H, Activated Partial Thromboplast Time 36H , Sodium Level 142, Potassium Level 3.8, Chloride Level 111H, Carbon Dioxide Level 25, Anion Gap 6, Blood Urea Nitrogen 23H, Creatinine 1.6H, Estimat Glomerular Filtration Rate 53.0, Glucose Level 81, Calcium Level 7.6L, Total Bilirubin 3.8H, Direct Bilirubin 3.3H, Aspartate Amino Transf (AST/SGOT) 32, Alanine Aminotransferase (ALT/SGPT) 13, Alkaline Phosphatase 148H, Total Protein 5.0L, Albumin 1.7L, Globulin 3.3, Albumin/Globulin Ratio 0.5L, Alpha Fetoprotein [Pending], Vancomycin Level Trough 10.2 07/23/17 10:00: Ammonia 55H 07/23/17 11:15: Arterial Blood pH 7.449, Arterial Blood Partial Pressure CO2 33.5L, Arterial Blood Partial Pressure O2 118.0H, Arterial Blood HCO3 22.7, Arterial Blood Oxygen Saturation 97.7, Arterial Blood Base Excess -1.1, Aston Test Positive 07/23/17 13:35: Arterial Blood pH 7.365, Arterial Blood Partial Pressure CO2 41.7, Arterial Blood Partial Pressure O2 74.6L, Arterial Blood HCO3 23.3, Arterial Blood Oxygen Saturation 93.1, Arterial Blood Base Excess -1.9, Aston Test Positive Height (Feet): 5 Height (Inches): 9.00 Weight (Pounds): 195 Objective WDWN AA man NCAT supple Coarse BS RR abd soft, (+) GT trace edema obtunded MANNY KAUR Jul 23, 2017 19:50
[2017-07-23] MEDS: Dyna-Hex 2% Top Sol 2oz TOPIC SCH (20:01)
[2017-07-23] MEDS: Acetaminophen 650mg/20.3ml ORAL PRN (20:38)
[2017-07-23] MEDS: Vancomycin 750mg/NS 250ml IVPB SCH (21:38)
[2017-07-23] MEDS: LORazepam Inj 2mg/ml 1ml IV PRN (22:07)
[2017-07-24] VITALS (24 sets, daily range): BP systolic 91–142; BP diastolic 57–82
--- NOTE | 2017-07-24 06:42 | Anethesia Preoperative Eval ---
Anesthesia Pre-op PMH/ROS General Date of Evaluation: Jul 24, 2017 Time of Evaluation: 06:38 Anesthesiologist: meliton ASA Score: ASA 4 Mallampati Score Class I : Soft palate, uvula, fauces, pillars visible Class II: Soft palate, uvula, fauces visible Class III: Soft palate, base of uvula visible Class IV: Only hard plate visible Mallampati Classification: Class II Surgeon: dariusz Diagnosis: ugib Surgical Procedure: egd with banding Anesthesia History: none Family History: no anesthesia problems Allergies: Coded Allergies: CODEINE (Verified Allergy, Unknown, 11/15/16) Medications: see eMAR Past Medical History Cardiovascular: Reports: HTN Pulmonary: Reports: asthma, COPD Gastrointestinal/Genitourinary: Reports: other - liver cirhosis Neurologic/Psychiatric: Reports: CVA Hematology/Immune: Reports: anemia, bleeding disorder - anticoagulation therapy -patient received platelets Anesthesia Pre-op Phys. Exam Physician Exam Last Vital Signs Date Time Temp Pulse Resp B/P (MAP) Pulse Ox O2 Delivery O2 Flow Rate FiO2 07/24/17 06:00 93 21 105/64 100 Mechanical Ventilator 40 07/24/17 04:00 98.4 07/17/17 12:04 50.0 Constitutional: NAD Neurologic: other Cardiovascular: other - ac 14, tv 550, fio2 0.4, peep 5 Respiratory: other - mechanical ventilator Gastrointestinal: other - g-tube Airway Exam Mallampati Score: Class II MO: limited Neck: decreased rom TMD: intubated ROM: limited Anesthesia Pre-op A/P Labs Hematology Test 07/23/17 08:45 White Blood Count 7.9 K/UL (4.8-10.8) Red Blood Count 2.44 M/UL (4.70-6.10) L Hemoglobin 8.1 G/DL (14.2-18.0) L Hematocrit 23.8 % (42.0-52.0) L Mean Corpuscular Volume 97 FL (80-99) Mean Corpuscular Hemoglobin 33.3 PG (27.0-31.0) H Mean Corpuscular Hemoglobin Concent 34.2 G/DL (32.0-36.0) Red Cell Distribution Width 14.0 % (11.6-14.8) Platelet Count 61 K/UL (150-450) L Mean Platelet Volume 12.4 FL (6.5-10.1) H Neutrophils (%) (Auto) % (45.0-75.0) Lymphocytes (%) (Auto) % (20.0-45.0) Monocytes (%) (Auto) % (1.0-10.0) Eosinophils (%) (Auto) % (0.0-3.0) Basophils (%) (Auto) % (0.0-2.0) Differential Total Cells Counted 100 Neutrophils % (Manual) 71 % (45-75) Lymphocytes % (Manual) 23 % (20-45) Monocytes % (Manual) 5 % (1-10) Eosinophils % (Manual) 1 % (0-3) Basophils % (Manual) 0 % (0-2) Band Neutrophils 0 % (0-8) Platelet Estimate Decreased L Platelet Morphology Normal Hypochromasia 2+ Anisocytosis 1+ Coagulation Test 07/23/17 08:45 Prothrombin Time 13.5 SEC (9.30-11.50) H Prothromb Time International Ratio 1.3 (0.9-1.1) H Activated Partial Thromboplast Time 36 SEC (23-33) H Chemistry Test 07/23/17 08:45 07/23/17 10:00 Sodium Level 142 MMOL/L (136-145) Potassium Level 3.8 MMOL/L (3.5-5.1) Chloride Level 111 MMOL/L (98-107) H Carbon Dioxide Level 25 MMOL/L (21-32) Anion Gap 6 mmol/L (5-15) Blood Urea Nitrogen 23 mg/dL (7-18) H Creatinine 1.6 MG/DL (0.55-1.30) H Estimat Glomerular Filtration Rate 53.0 mL/min (>60) Glucose Level 81 MG/DL (74-106) Calcium Level 7.6 MG/DL (8.5-10.1) L Total Bilirubin 3.8 MG/DL (0.2-1.0) H Direct Bilirubin 3.3 MG/DL (0.0-0.3) H Aspartate Amino Transf (AST/SGOT) 32 U/L (15-37) Alanine Aminotransferase (ALT/SGPT) 13 U/L (12-78) Alkaline Phosphatase 148 U/L (46-116) H Total Protein 5.0 G/DL (6.4-8.2) L Albumin 1.7 G/DL (3.4-5.0) L Globulin 3.3 g/dL Albumin/Globulin Ratio 0.5 (1.0-2.7) L Alpha Fetoprotein Pending Ammonia 55 umol/L (11-32) H Risk Assessment & Plan Assessment: [email or web address] Plan: mac Status Change Before Surgery: No Pre-Antibiotics Drug: NAYLA [place] Jul 24, 2017 06:42
[2017-07-24] MEDS ORDERED: Atropine Inj 1mg/10ml Syr IV PRN (07:00)
[2017-07-24] MEDS ORDERED: DiphenhydrAMINE 50mg/ml Inj IVP PRN (07:00)
[2017-07-24] MEDS ORDERED: Midazolam 2mg/2ml Inj IVP PRN (07:00)
[2017-07-24] MEDS ORDERED: Propofol 200mg/20ml IV ONE (07:00)
[2017-07-24] MEDS ORDERED: Lidocaine 1% MPF 10mg/ml 5ml ONE (07:00)
[2017-07-24] MEDS ORDERED: fentaNYL 100 mcg/2 mL IV PRN (07:00)
[2017-07-24] MEDS ORDERED: NS 500ML IV ONE (07:05)
--- NOTE | 2017-07-24 07:10 | Pre-Procedure Note/Attestation ---
Pre-Procedure Note/Attestation Complete Prior to Procedure Planned Procedure: not applicable Procedure Narrative: egd Indications for Procedure Pre-Operative Diagnosis: gib Attestation I attest that I discussed the nature of the procedure; its benefits; risks and complications; and alternatives (and the risks and benefits of such alternatives ), prior to the procedure, with the patient (or the patient's legal sales representative aircraft). I attest that, if there was a reasonable possibility of needing a blood transfusion, the patient (or the patient's legal sales representative aircraft) was given the [facility] standardized written summary, pursuant to the Madhu Miguel Blood Safety Act ([place] Health and Safety Code # 1645, as amended). I attest that I re-evaluated the patient just prior to the surgery and that there has been no change in the patient's H&P, except as documented below: MANNY KAUR Jul 24, 2017 07:10
--- NOTE | 2017-07-24 08:12 | Immediate Post-Op Evaluation ---
Immediate Post-Op Evalulation Immediate Post-Op Evalulation Procedure: egd Date of Evaluation: Jul 24, 2017 Time of Evaluation: 07:41 IV Fluids: 150ml Blood Products: none Estimated Blood Loss: negligible Blood Pressure Systolic: 101 - Blood Pressure Diastolic: 63 Pulse Rate: 93 Respiratory Rate: 26 O2 Sat by Pulse Oximetry: 100 Pain Score (1-10): 0 Nausea: No Vomiting: No Complications none Patient Status: awake, reacts, ventilated Hydration Status: adequate Drug: NAYLA [place] Jul 24, 2017 08:12
--- NOTE | 2017-07-24 08:14 | 48 Hour Post Anesthesia Eval ---
Post Anesthesia Evaluation Procedure: egd Date of Evaluation: Jul 24, 2017 Time of Evaluation: 08:12 Blood Pressure Systolic: 111 0: 55 Pulse Rate: 96 Respiratory Rate: 26 O2 Sat by Pulse Oximetry: 100 Airway: other - intubated Nausea: No Vomiting: No Pain Intensity: 0 Hydration Status: adequate Cardiopulmonary Status: stable Mental Status/LOC: patient returned to baseline Post-Anesthesia Complications: none Follow-up care needed: N/A NAYLA OROZCO Jul 24, 2017 08:14
[2017-07-24] MEDS: LaMICtal 150mg tab GT SCH (08:44)
[2017-07-24] MEDS: carBAMazepine 200mg tab GT SCH ×2 (08:44→20:46)
[2017-07-24] MEDS: levETIRAcetam 500mg/5ml Liquid GT SCH ×2 (08:45→20:46)
[2017-07-24] MEDS: Lacri-Lube Opth Oint 3.5gm BOTH EYES SCH ×2 (09:32→17:24)
[2017-07-24] MEDS: Bactrim Susp 20ml GT SCH ×2 (09:33→20:46)
[2017-07-24] MEDS: Vancomycin 750mg/NS 250ml IVPB SCH ×2 (10:08→22:45)
--- NOTE | 2017-07-24 10:32 | Wound Nurse Progress Note ---
Wound RN Progress Note Wound Consult reassessment #1 Intact blister on left hand -resolving, no further deterioration present. Recommendation -Local wound care per protocol -Optimize nutrition -Keep clean ad dry -Assess and f/u accordingly for any changes LAURA MICHELLE Jul 24, 2017 10:32
--- NOTE | 2017-07-24 11:07 | Critical Care Progress Note ---
Assessment/Plan Assessment/Plan IMPRESSION sepsis elevated lactic acid respiratory failure ho alcholic liver disease seizure disorder acute renal failure possible GIB coffee ground emesis MRSA sepsis polymicrobial infection KPC infection PLAN NGT ventilator management and try to wean follow up ABG pressors off seizure meds IV antibiotics noted ID evaluation noted on feeds off anticoag for now- resume when safe d/w family - discussing advance directives weaning as able still with poor LOC may need transfusion- repeat cbc impression, plan, and exam edited and reviewed in detail care discussed with learning strategist - Subjective Interval Events: overall same slightly agitated ROS Limited/Unobtainable: Yes Condition: critical EKG Rhythm: Sinus Rhythm Residuals: minimal Tube Feeding Tolerated: yes I&O: Intake and Output 07/24/17 07/25/17 19:00 07:00 Intake Total 510 ml Output Total 245 ml Balance 265 ml Intake Free Water 60 ml IV Total 300 ml Tube Feeding 150 ml Output Urine Total 245 ml Critical Care - Objective ET-Tube: 7.5 ET Position: 23 Last 24 Hour Vital Signs Date Time Temp Pulse Resp B/P (MAP) Pulse Ox O2 Delivery O2 Flow Rate FiO2 07/24/17 11:00 97 22 100/63 100 Mechanical Ventilator 40 07/24/17 10:38 102 25 40 07/24/17 10:00 98 23 112/66 100 Mechanical Ventilator 40 07/24/17 09:19 95 22 40 07/24/17 09:18 100 07/24/17 09:00 96 22 104/65 100 Mechanical Ventilator 40 07/24/17 08:14 96 26 100 07/24/17 08:12 93 26 100 07/24/17 08:00 99.1 94 22 112/74 100 Mechanical Ventilator 40 07/24/17 08:00 40 07/24/17 08:00 98 07/24/17 07:29 98 29 40 07/24/17 07:00 95 21 91/59 100 Mechanical Ventilator 40 07/24/17 06:00 93 21 105/64 100 Mechanical Ventilator 40 07/24/17 05:00 93 26 40 07/24/17 05:00 91 21 97/60 100 Mechanical Ventilator 40 07/24/17 04:00 40 07/24/17 04:00 93 07/24/17 04:00 98.4 93 21 98/64 100 Mechanical Ventilator 40 07/24/17 03:06 91 18 40 07/24/17 03:00 92 21 93/57 100 Mechanical Ventilator 40 07/24/17 02:00 93 21 102/60 100 Mechanical Ventilator 40 07/24/17 01:00 98.7 93 21 100/60 100 Mechanical Ventilator 40 07/24/17 01:00 103 28 40 07/24/17 00:00 40 07/24/17 00:00 99.3 96 21 103/66 100 Mechanical Ventilator 40 07/24/17 00:00 96 07/23/17 23:21 98 27 40 07/23/17 23:00 99 21 101/58 100 Mechanical Ventilator 40 07/23/17 22:00 104 23 112/67 100 Mechanical Ventilator 40 07/23/17 21:08 98.7 07/23/17 21:00 103 22 109/66 100 Mechanical Ventilator 40 07/23/17 21:00 102 24 40 07/23/17 20:00 99.3 104 26 107/63 100 Mechanical Ventilator 40 07/23/17 20:00 40 07/23/17 20:00 104 07/23/17 19:09 105 28 40 07/23/17 19:00 103 22 107/62 100 Mechanical Ventilator 40 07/23/17 18:00 102 22 106/63 100 Mechanical Ventilator 40 07/23/17 17:00 105 27 120/69 100 Mechanical Ventilator 40 07/23/17 16:58 98 23 40 07/23/17 16:00 103 07/23/17 16:00 40 07/23/17 16:00 98.7 105 27 96/57 100 Mechanical Ventilator 40 07/23/17 15:00 110 29 156/92 100 Mechanical Ventilator 40 07/23/17 14:53 108 25 40 07/23/17 14:00 112 25 158/96 100 Mechanical Ventilator 40 07/23/17 13:05 109 29 40 07/23/17 13:00 108 24 153/83 100 Mechanical Ventilator 40 07/23/17 12:00 103 07/23/17 12:00 99.1 104 23 122/69 100 Mechanical Ventilator 40 07/23/17 11:17 108 27 40 07/23/17 11:15 105 101/59 07/23/17 11:15 101/59 Labs: Labs Test 07/22/17 04:00 07/22/17 04:30 07/23/17 08:45 07/23/17 10:00 Phosphorus Level 3.0 MG/DL (2.5-4.9) Magnesium Level 1.8 MG/DL (1.8-2.4) White Blood Count 11.0 K/UL (4.8-10.8) 7.9 K/UL (4.8-10.8) Red Blood Count 2.79 M/UL (4.70-6.10) 2.44 M/UL (4.70-6.10) Hemoglobin 8.9 G/DL (14.2-18.0) 8.1 G/DL (14.2-18.0) Hematocrit 26.7 % (42.0-52.0) 23.8 % (42.0-52.0) Mean Corpuscular Volume 96 FL (80-99) 97 FL (80-99) Mean Corpuscular Hemoglobin 31.9 PG (27.0-31.0) 33.3 PG (27.0-31.0) Mean Corpuscular Hemoglobin Concent 33.3 G/DL (32.0-36.0) 34.2 G/DL (32.0-36.0) Red Cell Distribution Width 13.4 % (11.6-14.8) 14.0 % (11.6-14.8) Platelet Count 52 K/UL (150-450) 61 K/UL (150-450) Mean Platelet Volume 9.6 FL (6.5-10.1) 12.4 FL (6.5-10.1) Neutrophils (%) (Auto) % (45.0-75.0) % (45.0-75.0) Lymphocytes (%) (Auto) % (20.0-45.0) % (20.0-45.0) Monocytes (%) (Auto) % (1.0-10.0) % (1.0-10.0) Eosinophils (%) (Auto) % (0.0-3.0) % (0.0-3.0) Basophils (%) (Auto) % (0.0-2.0) % (0.0-2.0) Differential Total Cells Counted 100 100 Neutrophils % (Manual) 83 % (45-75) 71 % (45-75) Lymphocytes % (Manual) 11 % (20-45) 23 % (20-45) Monocytes % (Manual) 2 % (1-10) 5 % (1-10) Eosinophils % (Manual) 4 % (0-3) 1 % (0-3) Basophils % (Manual) 0 % (0-2) 0 % (0-2) Band Neutrophils 0 % (0-8) 0 % (0-8) Platelet Estimate Decreased Decreased Platelet Morphology Normal Normal Hypochromasia 1+ 2+ Prothrombin Time 12.8 SEC (9.30-11.50) 13.5 SEC (9.30-11.50) Prothromb Time International Ratio 1.2 (0.9-1.1) 1.3 (0.9-1.1) Activated Partial Thromboplast Time 37 SEC (23-33) 36 SEC (23-33) Sodium Level 143 MMOL/L (136-145) 142 MMOL/L (136-145) Potassium Level 3.4 MMOL/L (3.5-5.1) 3.8 MMOL/L (3.5-5.1) Chloride Level 110 MMOL/L (98-107) 111 MMOL/L (98-107) Carbon Dioxide Level 25 MMOL/L (21-32) 25 MMOL/L (21-32) Anion Gap 9 mmol/L (5-15) 6 mmol/L (5-15) Blood Urea Nitrogen 18 mg/dL (7-18) 23 mg/dL (7-18) Creatinine 1.4 MG/DL (0.55-1.30) 1.6 MG/DL (0.55-1.30) Estimat Glomerular Filtration Rate > 60 mL/min (>60) 53.0 mL/min (>60) Glucose Level 76 MG/DL (74-106) 81 MG/DL (74-106) Calcium Level 8.0 MG/DL (8.5-10.1) 7.6 MG/DL (8.5-10.1) Total Bilirubin 4.1 MG/DL (0.2-1.0) 3.8 MG/DL (0.2-1.0) Direct Bilirubin 4.2 MG/DL (0.0-0.3) 3.3 MG/DL (0.0-0.3) Aspartate Amino Transf (AST/SGOT) 31 U/L (15-37) 32 U/L (15-37) Alanine Aminotransferase (ALT/SGPT) 16 U/L (12-78) 13 U/L (12-78) Alkaline Phosphatase 144 U/L (46-116) 148 U/L (46-116) Total Protein 5.0 G/DL (6.4-8.2) 5.0 G/DL (6.4-8.2) Albumin 1.7 G/DL (3.4-5.0) 1.7 G/DL (3.4-5.0) Globulin 3.3 g/dL 3.3 g/dL Albumin/Globulin Ratio 0.5 (1.0-2.7) 0.5 (1.0-2.7) Anisocytosis 1+ Alpha Fetoprotein 0.9 ng/mL (0.0-8.3) Vancomycin Level Trough 10.2 ug/mL (5.0-12.0) Ammonia 55 umol/L (11-32) Test 07/23/17 11:15 07/23/17 13:35 Arterial Blood pH 7.449 (7.350-7.450) 7.365 (7.350-7.450) Arterial Blood Partial Pressure CO2 33.5 mmHg (35.0-45.0) 41.7 mmHg (35.0-45.0) Arterial Blood Partial Pressure O2 118.0 mmHg (75.0-100.0) 74.6 mmHg (75.0-100.0) Arterial Blood HCO3 22.7 mmol/L (22.0-26.0) 23.3 mmol/L (22.0-26.0) Arterial Blood Oxygen Saturation 97.7 % (92.0-98.0) 93.1 % (92.0-98.0) Arterial Blood Base Excess -1.1 -1.9 Aston Test Positive Positive Objective: WDWN very ill intubated clear breath sounds bilaterally without rhonchi or wheeze [id number] without MRG NABS nontender no HSM; NGT no CC some edema mild reduced LOC EUSEBIO CRESPO Jul 24, 2017 11:07
--- NOTE | 2017-07-24 12:22 | Infectious Diseases Prog Note ---
"Assessment/Plan Assessment/Plan antibiotics : vancomycin, bactrim A 1. MRSA | klebsiella pneumonia 2. respiratory failure 3. thrombocytopenia improving 4. MRSA sepsis 5. renal failure 6. HTN 7. leucocytosis improving P 1. continue vancomycin iv 2. continue bactrim 3. will follow up cultures Subjective ROS Limited/Unobtainable: Yes Allergies: Coded Allergies: CODEINE (Verified Allergy, Unknown, 11/15/16) Objective Vital Signs Last 24 Hour Vital Signs Date Time Temp Pulse Resp B/P (MAP) Pulse Ox O2 Delivery O2 Flow Rate FiO2 07/24/17 12:00 99.3 97 23 105/61 100 Mechanical Ventilator 40 07/24/17 12:00 40 07/24/17 11:00 97 22 100/63 100 Mechanical Ventilator 40 07/24/17 10:38 102 25 40 07/24/17 10:00 98 23 112/66 100 Mechanical Ventilator 40 07/24/17 09:19 95 22 40 07/24/17 09:18 100 07/24/17 09:00 96 22 104/65 100 Mechanical Ventilator 40 07/24/17 08:14 96 26 100 07/24/17 08:12 93 26 100 07/24/17 08:00 99.1 94 22 112/74 100 Mechanical Ventilator 40 07/24/17 08:00 40 07/24/17 08:00 98 07/24/17 07:29 98 29 40 07/24/17 07:00 95 21 91/59 100 Mechanical Ventilator 40 07/24/17 06:00 93 21 105/64 100 Mechanical Ventilator 40 07/24/17 05:00 93 26 40 07/24/17 05:00 91 21 97/60 100 Mechanical Ventilator 40 07/24/17 04:00 40 07/24/17 04:00 93 07/24/17 04:00 98.4 93 21 98/64 100 Mechanical Ventilator 40 07/24/17 03:06 91 18 40 07/24/17 03:00 92 21 93/57 100 Mechanical Ventilator 40 07/24/17 02:00 93 21 102/60 100 Mechanical Ventilator 40 07/24/17 01:00 98.7 93 21 100/60 100 Mechanical Ventilator 40 07/24/17 01:00 103 28 40 07/24/17 00:00 40 07/24/17 00:00 99.3 96 21 103/66 100 Mechanical Ventilator 40 07/24/17 00:00 96 07/23/17 23:21 98 27 40 07/23/17 23:00 99 21 101/58 100 Mechanical Ventilator 40 07/23/17 22:00 104 23 112/67 100 Mechanical Ventilator 40 07/23/17 21:08 98.7 07/23/17 21:00 103 22 109/66 100 Mechanical Ventilator 40 07/23/17 21:00 102 24 40 07/23/17 20:00 99.3 104 26 107/63 100 Mechanical Ventilator 40 07/23/17 20:00 40 07/23/17 20:00 104 07/23/17 19:09 105 28 40 07/23/17 19:00 103 22 107/62 100 Mechanical Ventilator 40 07/23/17 18:00 102 22 106/63 100 Mechanical Ventilator 40 07/23/17 17:00 105 27 120/69 100 Mechanical Ventilator 40 07/23/17 16:58 98 23 40 07/23/17 16:00 103 07/23/17 16:00 40 07/23/17 16:00 98.7 105 27 96/57 100 Mechanical Ventilator 40 07/23/17 15:00 110 29 156/92 100 Mechanical Ventilator 40 07/23/17 14:53 108 25 40 07/23/17 14:00 112 25 158/96 100 Mechanical Ventilator 40 07/23/17 13:05 109 29 40 07/23/17 13:00 108 24 153/83 100 Mechanical Ventilator 40 Height (Feet): 5 Height (Inches): 7.00 Weight (Pounds): 198 HEENT: other - intubated Respiratory/Chest: lungs clear Cardiovascular: normal rate, regular rhythm, no gallop/murmur Abdomen: soft, non tender, other - GT Extremities: other - + edema, right IJ catheter Laboratory Tests Test 07/23/17 13:35 Arterial Blood pH 7.365 (7.350-7.450) Arterial Blood Partial Pressure CO2 41.7 mmHg (35.0-45.0) Arterial Blood Partial Pressure O2 74.6 mmHg (75.0-100.0) L Arterial Blood HCO3 23.3 mmol/L (22.0-26.0) Arterial Blood Oxygen Saturation 93.1 % (92.0-98.0) Arterial Blood Base Excess -1.9 Aston Test Positive NIKOLAY HANNA Jul 24, 2017 12:22"
[2017-07-24 14:48] LABS: MEAN CORPUSCULAR HGB CONC 30.2 G/DL (32.0-36.0); MEAN CORPUSCULAR VOLUME 99 FL (80-99); MEAN PLATELET VOLUME 8.8 FL (6.5-10.1); PLATELET COUNT 90 K/UL (150-450); RED BLOOD COUNT 2.27 M/UL (4.70-6.10); RED CELL DISTRIBUTION WIDTH 14.5 % (11.6-14.8); WHITE BLOOD COUNT 6.5 K/UL (4.8-10.8)
[2017-07-24 16:44] LABS: ANISOCYTOSIS 1+; BAND NEUTROPHILS % (MANUAL) 3 % (0-8); BASOPHILS % (MANUAL) 1 % (0-2); EOSINOPHILS % (MANUAL) 2 % (0-3); LYMPHOCYTES % (MANUAL) 15 % (20-45); NEUTROPHILS % (MANUAL) 72 % (45-75); TOTAL CELLS COUNTED 100
[2017-07-24 16:45] LABS: HYPOCHROMASIA 2+; PLATELET ESTIMATE DECREASED; PLATELET MORPHOLOGY NORMAL; TARGET CELLS 1+
--- NOTE | 2017-07-24 19:15 | General Progress Note ---
Progress Note Progress Note Surgery: full note to follow. in short 62 year old male with multiple medical problems and prior hospitalizations who presented in septic shock/ respiratory failure requiring intubation. Has history of PEG and Trach but was doing well and decannulated trach not too long ago. During this hospitalization he is again experiencing declined respiratory function and difficulty with weaning from ventilator. Surgery called for trach evaluation. History limited given patients current condition and obtained mainly from EMR. Given history and current condition recommend Tracheostomy again for protected airway and likely prolonged ventilatory support. Will discuss with patients family and obtain consent. Will schedule once able to obtain consent. Solomon Brito Jul 24, 2017 19:15
[2017-07-24] MEDS: Dyna-Hex 2% Top Sol 2oz TOPIC SCH (20:45)
--- NOTE | 2017-07-24 21:29 | General Progress Note ---
Assessment/Plan Assessment/Plan Assessment - UGIB due to gastric ulcer - stabilized - shock- stabilized - severe thrombocytopenia - lactic acidosis - improved - resp failure - renal failure - Cirrhotic liver - Guarded Recommendations - platelet transfusion PRN - RBC transfusion PRN - Restart TF - supportive care - await trach - pulmonary f/u - abx - PPI Subjective Allergies: Coded Allergies: CODEINE (Verified Allergy, Unknown, 11/15/16) Subjective Above noted doing better had EGD this am --> small healing gastric ulcer no esophageal varicies Objective Last 24 Hour Vital Signs Date Time Temp Pulse Resp B/P (MAP) Pulse Ox O2 Delivery O2 Flow Rate FiO2 07/24/17 21:18 106 26 40 07/24/17 19:23 103 25 40 07/24/17 19:00 102 23 109/72 100 Mechanical Ventilator 40 07/24/17 18:00 99 25 104/60 100 Mechanical Ventilator 40 07/24/17 17:08 98 20 Mechanical Ventilator 07/24/17 17:00 96 23 106/57 100 Mechanical Ventilator 40 07/24/17 16:41 96 22 40 07/24/17 16:00 99.3 99 28 105/62 100 Mechanical Ventilator 40 07/24/17 16:00 96 07/24/17 15:27 100 27 40 07/24/17 15:00 99 26 106/65 100 Mechanical Ventilator 40 07/24/17 14:00 97 26 116/64 100 Mechanical Ventilator 40 07/24/17 13:30 40 07/24/17 13:20 108 29 40 07/24/17 13:00 99 24 111/62 100 Mechanical Ventilator 40 07/24/17 12:00 99.3 97 23 105/61 100 Mechanical Ventilator 40 07/24/17 12:00 98 07/24/17 12:00 40 07/24/17 11:00 97 22 100/63 100 Mechanical Ventilator 40 07/24/17 10:38 102 25 40 07/24/17 10:00 98 23 112/66 100 Mechanical Ventilator 40 07/24/17 09:19 95 22 40 07/24/17 09:18 100 07/24/17 09:00 96 22 104/65 100 Mechanical Ventilator 40 07/24/17 08:14 96 26 100 07/24/17 08:12 93 26 100 07/24/17 08:00 99.1 94 22 112/74 100 Mechanical Ventilator 40 07/24/17 08:00 40 07/24/17 08:00 98 07/24/17 07:29 98 29 40 07/24/17 07:00 95 21 91/59 100 Mechanical Ventilator 40 07/24/17 06:00 93 21 105/64 100 Mechanical Ventilator 40 07/24/17 05:00 93 26 40 07/24/17 05:00 91 21 97/60 100 Mechanical Ventilator 40 07/24/17 04:00 40 07/24/17 04:00 93 07/24/17 04:00 98.4 93 21 98/64 100 Mechanical Ventilator 40 07/24/17 03:06 91 18 40 07/24/17 03:00 92 21 93/57 100 Mechanical Ventilator 40 07/24/17 02:00 93 21 102/60 100 Mechanical Ventilator 40 07/24/17 01:00 98.7 93 21 100/60 100 Mechanical Ventilator 40 07/24/17 01:00 103 28 40 07/24/17 00:00 40 07/24/17 00:00 99.3 96 21 103/66 100 Mechanical Ventilator 40 07/24/17 00:00 96 07/23/17 23:21 98 27 40 07/23/17 23:00 99 21 101/58 100 Mechanical Ventilator 40 07/23/17 22:00 104 23 112/67 100 Mechanical Ventilator 40 Intake and Output 07/24/17 07/25/17 19:00 07:00 Intake Total 1398.334 ml Output Total 735 ml Balance 663.334 ml Intake Free Water 60 ml IV Total 733.334 ml Tube Feeding 605 ml Output Urine Total 735 ml Laboratory Tests 07/24/17 14:30: White Blood Count 6.5, Red Blood Count 2.27L, Hemoglobin 6.8*L, Hematocrit 22.6L , Mean Corpuscular Volume 99, Mean Corpuscular Hemoglobin 30.0, Mean Corpuscular Hemoglobin Concent 30.2L, Red Cell Distribution Width 14.5, Platelet Count 90L, Mean Platelet Volume 8.8, Neutrophils (%) (Auto) , Lymphocytes (%) (Auto) , Monocytes (%) (Auto) , Eosinophils (%) (Auto) , Basophils (%) (Auto) , Differential Total Cells Counted 100, Neutrophils % ( Manual) 72, Lymphocytes % (Manual) 15L, Monocytes % (Manual) 7, Eosinophils % ( Manual) 2, Basophils % (Manual) 1, Band Neutrophils 3, Platelet Estimate DecreasedL, Platelet Morphology Normal, Hypochromasia 2+, Anisocytosis 1+, Target Cells 1+ Height (Feet): 5 Height (Inches): 7.00 Weight (Pounds): 198 Objective WDWN AA man NCAT supple Coarse BS RR abd soft, (+) GT trace edema obtunded MANNY KAUR Jul 24, 2017 21:29
[2017-07-24] MEDS: LORazepam Inj 2mg/ml 1ml IV PRN (23:16)
[2017-07-25] VITALS (23 sets, daily range): BP systolic 87–170; BP diastolic 50–100
--- NOTE | 2017-07-25 01:46 | Procedure Note ---
DATE OF PROCEDURE: 07/24/2017 PROCEDURE: Upper gastrointestinal endoscopy with biopsy. SURGEON: Jacob Farmer M.D. ANESTHESIA: Please see separate anesthesiologist notes for details. PRE-ENDOSCOPIC DIAGNOSIS: Upper gastrointestinal bleeding. POST-ENDOSCOPIC DIAGNOSES: 1. Status post gastrostomy tube in the past as expected. 2. Small healing gastric ulcer in the gastric antrum measuring approximately 8-10 millimeters with a shallow wide base, status post biopsy. 3. No active bleeding. DETAILS OF PROCEDURE: The procedure, its risks, indications, alternatives, and possible complications were explained to the patient's family and informed consent was obtained. The endoscope was introduced through the oropharynx and advanced to the duodenum. The endoscope was then gradually withdrawn and the mucosa examined carefully. Findings were as listed above. The endoscope was removed and the patient was sent to recovery in good condition. COMPLICATIONS: None. RECOMMENDATIONS: 1. Follow up biopsy results. 2. Check and treat Helicobacter pylori if positive. 3. Resume tube feedings. Jacob Farmer M.D. DR: DEBBIE JOB#: [id number] CC: RICH
[2017-07-25] MEDS: Acetaminophen 650mg/20.3ml ORAL PRN (02:15)
[2017-07-25 05:31] LABS: BASOPHILS % (AUTO) 0.8 % (0.0-2.0); EOSINOPHILS % (AUTO) 2.2 % (0.0-3.0); LYMPHOCYTES % (AUTO) 14.4 % (20.0-45.0); MEAN CORPUSCULAR HEMOGLOBIN 31.9 PG (27.0-31.0); MEAN CORPUSCULAR VOLUME 94 FL (80-99); MEAN PLATELET VOLUME 10.9 FL (6.5-10.1); MONOCYTES % (AUTO) 8.6 % (1.0-10.0); PLATELET COUNT 122 K/UL (150-450); RED BLOOD COUNT 3.06 M/UL (4.70-6.10); RED CELL DISTRIBUTION WIDTH 14.9 % (11.6-14.8); WHITE BLOOD COUNT 7.9 K/UL (4.8-10.8)
[2017-07-25 05:39] LABS: INR 1.2 (0.9-1.1); PROTHROMBIN TIME 12.9 SEC (9.30-11.50)
[2017-07-25 06:08] LABS: ALANINE AMINOTRANSFERASE 20 U/L (12-78); ALBUMIN/GLOBULIN RATIO 0.5 (1.0-2.7); ANION GAP 5 mmol/L (5-15); ASPARTATE AMINO TRANSFERASE 44 U/L (15-37); CARBON DIOXIDE 27 MMOL/L (21-32); CHLORIDE 110 MMOL/L (98-107); CREATININE 1.5 MG/DL (0.55-1.30); GLOMERULAR FILTRATION RATE 57.1 mL/min (>60); POTASSIUM 3.7 MMOL/L (3.5-5.1); SODIUM 142 MMOL/L (136-145); TOTAL PROTEIN 5.5 G/DL (6.4-8.2)
[2017-07-25 06:21] LABS: BILIRUBIN,DIRECT 2.2 MG/DL (0.0-0.3)
--- NOTE | 2017-07-25 07:44 | Infectious Diseases Prog Note ---
Assessment/Plan Assessment/Plan A; MRSA sepsis Pneumonia with MRSA & KPC GI bleeding, Gastric Ulcer Hypoxic respiratory failure Acute renal failure , stable Cirrhosis Thrombocytopenia P; Continue Vancomycin, Bactrim will have tracheostomy today Subjective ROS Limited/Unobtainable: Yes Allergies: Coded Allergies: CODEINE (Verified Allergy, Unknown, 11/15/16) Objective Vital Signs Last 24 Hour Vital Signs Date Time Temp Pulse Resp B/P (MAP) Pulse Ox O2 Delivery O2 Flow Rate FiO2 07/25/17 07:00 105 23 137/92 100 Mechanical Ventilator 40 07/25/17 06:59 105 21 40 07/25/17 06:00 111 26 124/69 100 Mechanical Ventilator 40 07/25/17 05:07 113 23 40 07/25/17 05:00 114 28 147/77 100 Mechanical Ventilator 40 07/25/17 04:00 98.7 112 26 116/65 100 Mechanical Ventilator 40 07/25/17 04:00 40 07/25/17 04:00 113 07/25/17 03:14 113 26 40 07/25/17 03:00 114 28 127/73 100 Mechanical Ventilator 40 07/25/17 02:45 99.3 07/25/17 02:00 99.3 113 26 140/70 100 Mechanical Ventilator 40 07/25/17 01:24 112 28 40 07/25/17 01:00 110 28 124/76 100 Mechanical Ventilator 40 07/25/17 00:00 98.7 107 26 124/74 100 Mechanical Ventilator 40 07/25/17 00:00 40 07/25/17 00:00 109 07/24/17 23:08 109 26 40 07/24/17 23:00 110 28 134/78 100 Mechanical Ventilator 40 07/24/17 22:00 109 26 139/82 100 Mechanical Ventilator 40 07/24/17 21:18 106 26 40 07/24/17 21:00 106 26 142/80 100 Mechanical Ventilator 40 07/24/17 20:00 40 07/24/17 20:00 102 07/24/17 20:00 99.1 104 28 118/74 100 Mechanical Ventilator 40 07/24/17 19:23 103 25 40 07/24/17 19:00 102 23 109/72 100 Mechanical Ventilator 40 07/24/17 18:00 99 25 104/60 100 Mechanical Ventilator 40 07/24/17 17:08 98 20 Mechanical Ventilator 07/24/17 17:00 96 23 106/57 100 Mechanical Ventilator 40 07/24/17 16:41 96 22 40 07/24/17 16:00 99.3 99 28 105/62 100 Mechanical Ventilator 40 07/24/17 16:00 96 07/24/17 15:27 100 27 40 07/24/17 15:00 99 26 106/65 100 Mechanical Ventilator 40 07/24/17 14:00 97 26 116/64 100 Mechanical Ventilator 40 07/24/17 13:30 40 07/24/17 13:20 108 29 40 07/24/17 13:00 99 24 111/62 100 Mechanical Ventilator 40 07/24/17 12:00 99.3 97 23 105/61 100 Mechanical Ventilator 40 07/24/17 12:00 98 07/24/17 12:00 40 07/24/17 11:00 97 22 100/63 100 Mechanical Ventilator 40 07/24/17 10:38 102 25 40 07/24/17 10:00 98 23 112/66 100 Mechanical Ventilator 40 07/24/17 09:19 95 22 40 07/24/17 09:18 100 07/24/17 09:00 96 22 104/65 100 Mechanical Ventilator 40 07/24/17 08:14 96 26 100 07/24/17 08:12 93 26 100 07/24/17 08:00 99.1 94 22 112/74 100 Mechanical Ventilator 40 07/24/17 08:00 40 07/24/17 08:00 98 Height (Feet): 5 Height (Inches): 6.00 Weight (Pounds): 197 HEENT: other - orally intubated Respiratory/Chest: rhonchi - bilaterally, other - on ventilator Cardiovascular: tachycardia, other - RIJ central line Abdomen: distended, other - GT in place Extremities: other - generalized edema Neurologic/Psychiatric: unresponsiveness Laboratory Tests Test 07/24/17 14:30 07/25/17 04:00 White Blood Count 6.5 K/UL (4.8-10.8) 7.9 K/UL (4.8-10.8) Red Blood Count 2.27 M/UL (4.70-6.10) L 3.06 M/UL (4.70-6.10) L Hemoglobin 6.8 G/DL (14.2-18.0) *L 9.8 G/DL (14.2-18.0) #L Hematocrit 22.6 % (42.0-52.0) L 28.8 % (42.0-52.0) L Mean Corpuscular Volume 99 FL (80-99) 94 FL (80-99) Mean Corpuscular Hemoglobin 30.0 PG (27.0-31.0) 31.9 PG (27.0-31.0) H Mean Corpuscular Hemoglobin Concent 30.2 G/DL (32.0-36.0) L 34.0 G/DL (32.0-36.0) Red Cell Distribution Width 14.5 % (11.6-14.8) 14.9 % (11.6-14.8) H Platelet Count 90 K/UL (150-450) L 122 K/UL (150-450) L Mean Platelet Volume 8.8 FL (6.5-10.1) 10.9 FL (6.5-10.1) H Neutrophils (%) (Auto) % (45.0-75.0) 74.0 % (45.0-75.0) Lymphocytes (%) (Auto) % (20.0-45.0) 14.4 % (20.0-45.0) L Monocytes (%) (Auto) % (1.0-10.0) 8.6 % (1.0-10.0) Eosinophils (%) (Auto) % (0.0-3.0) 2.2 % (0.0-3.0) Basophils (%) (Auto) % (0.0-2.0) 0.8 % (0.0-2.0) Differential Total Cells Counted 100 Neutrophils % (Manual) 72 % (45-75) Lymphocytes % (Manual) 15 % (20-45) L Monocytes % (Manual) 7 % (1-10) Eosinophils % (Manual) 2 % (0-3) Basophils % (Manual) 1 % (0-2) Band Neutrophils 3 % (0-8) Platelet Estimate Decreased L Platelet Morphology Normal Hypochromasia 2+ Anisocytosis 1+ Target Cells 1+ Prothrombin Time 12.9 SEC (9.30-11.50) H Prothromb Time International Ratio 1.2 (0.9-1.1) H Sodium Level 142 MMOL/L (136-145) Potassium Level 3.7 MMOL/L (3.5-5.1) Chloride Level 110 MMOL/L (98-107) H Carbon Dioxide Level 27 MMOL/L (21-32) Anion Gap 5 mmol/L (5-15) Blood Urea Nitrogen 24 mg/dL (7-18) H Creatinine 1.5 MG/DL (0.55-1.30) H Estimat Glomerular Filtration Rate 57.1 mL/min (>60) Glucose Level 103 MG/DL (74-106) Calcium Level 8.0 MG/DL (8.5-10.1) L Total Bilirubin 2.7 MG/DL (0.2-1.0) H Direct Bilirubin 2.2 MG/DL (0.0-0.3) H Aspartate Amino Transf (AST/SGOT) 44 U/L (15-37) H Alanine Aminotransferase (ALT/SGPT) 20 U/L (12-78) Alkaline Phosphatase 215 U/L (46-116) H Total Protein 5.5 G/DL (6.4-8.2) L Albumin 1.8 G/DL (3.4-5.0) L Globulin 3.7 g/dL Albumin/Globulin Ratio 0.5 (1.0-2.7) L Current Medications Medications (Trade) Dose Ordered Sig/Romelia Route PRN Reason Start Time Stop Time Status Last Admin Dose Admin Acetaminophen (Tylenol) 650 mg Q4H PRN ORAL Mild Pain/Temp > 100.5 07/14/17 20:00 08/13/17 19:59 07/23/17 05:56 Acetaminophen (Tylenol) 650 mg Q4H PRN ORAL Fever/Headache/Mild Pain 07/14/17 20:00 08/13/17 19:59 07/25/17 02:15 Artificial Tears (Lacri-Lube) 1 applic BID BOTH EYES 07/20/17 11:15 08/19/17 11:14 07/24/17 17:24 Carbamazepine (TEGretol) 250 mg Q12HR GT 07/14/17 21:00 08/13/17 20:59 07/24/17 20:46 Chlorhexidine Gluconate (Natalie-Hex 2%) 1 applic DAILY@1999 TOPIC 07/16/17 20:00 08/15/17 19:59 07/24/17 20:45 Lamotrigine (LaMICtal) 300 mg DAILY GT 07/15/17 09:00 08/14/17 08:59 07/24/17 08:44 Lansoprazole (Prevacid) 30 mg Q12HR GT 07/15/17 13:00 08/14/17 12:59 07/24/17 20:46 Levetiracetam (Keppra) 1,500 mg Q12HR GT 07/16/17 21:00 08/15/17 20:59 07/24/17 20:46 Lorazepam (Ativan 2mg/ml 1ml) 1 mg Q3HR PRN IV For Anxiety 07/23/17 22:00 07/30/17 21:59 07/24/17 23:16 Trimethoprim/ Sulfamethoxazole (Bactrim-DS) 10 ml EVERY 12 HOURS GT 07/19/17 21:00 07/26/17 20:59 07/24/17 20:46 Vancomycin HCl (Vanco rx to dose) 1 ea DAILY PRN MISC Per rx protocol 07/18/17 09:30 08/17/17 09:29 Vancomycin/Sodium Chloride 250 ml @ 166.667 mls/hr Q12HR@1000,2200 IVPB 07/23/17 22:00 07/28/17 21:59 07/24/17 22:45 ANDRZEJ JAMES Jul 25, 2017 07:44
[2017-07-25] MEDS: carBAMazepine 200mg tab GT SCH ×2 (08:23→20:38)
[2017-07-25] MEDS: LaMICtal 150mg tab GT SCH (08:24)
[2017-07-25] MEDS: levETIRAcetam 500mg/5ml Liquid GT SCH ×2 (08:26→20:38)
[2017-07-25] MEDS: Bactrim Susp 20ml GT SCH ×2 (08:27→20:38)
[2017-07-25] MEDS: Lacri-Lube Opth Oint 3.5gm BOTH EYES SCH ×2 (08:28→18:34)
--- NOTE | 2017-07-25 08:43 | Critical Care Progress Note ---
Assessment/Plan Assessment/Plan IMPRESSION sepsis elevated lactic acid respiratory failure ho alcholic liver disease seizure disorder acute renal failure possible GIB coffee ground emesis MRSA sepsis polymicrobial infection KPC infection anemia s/p transfusion PLAN trach and GT ventilator management and try to wean follow up ABG pressors off seizure meds IV antibiotics noted ID evaluation noted on feeds off anticoag for now- resume when safe d/w family - still full code weaning as able still with poor LOC monitor HH impression, plan, and exam edited and reviewed in detail care discussed with customer service rep - Subjective Interval Events: d/w daughter would like GT and trach Condition: critical EKG Rhythm: Sinus Rhythm I&O: Intake and Output 07/25/17 07/26/17 19:00 07:00 Intake Total 55 ml Output Total 150 ml Balance -95 ml Tube Feeding 55 ml Output Urine Total 150 ml Critical Care - Objective ET-Tube: 7.5 ET Position: 23 Last 24 Hour Vital Signs Date Time Temp Pulse Resp B/P (MAP) Pulse Ox O2 Delivery O2 Flow Rate FiO2 07/25/17 08:00 40 07/25/17 08:00 99.3 106 21 116/65 100 Mechanical Ventilator 40 07/25/17 08:00 109 07/25/17 07:00 105 23 137/92 100 Mechanical Ventilator 40 07/25/17 06:59 105 21 40 07/25/17 06:00 111 26 124/69 100 Mechanical Ventilator 40 07/25/17 05:07 113 23 40 07/25/17 05:00 114 28 147/77 100 Mechanical Ventilator 40 07/25/17 04:00 98.7 112 26 116/65 100 Mechanical Ventilator 40 07/25/17 04:00 40 07/25/17 04:00 113 07/25/17 03:14 113 26 40 07/25/17 03:00 114 28 127/73 100 Mechanical Ventilator 40 07/25/17 02:45 99.3 07/25/17 02:00 99.3 113 26 140/70 100 Mechanical Ventilator 40 07/25/17 01:24 112 28 40 07/25/17 01:00 110 28 124/76 100 Mechanical Ventilator 40 07/25/17 00:00 98.7 107 26 124/74 100 Mechanical Ventilator 40 07/25/17 00:00 40 07/25/17 00:00 109 07/24/17 23:08 109 26 40 07/24/17 23:00 110 28 134/78 100 Mechanical Ventilator 40 07/24/17 22:00 109 26 139/82 100 Mechanical Ventilator 40 07/24/17 21:18 106 26 40 07/24/17 21:00 106 26 142/80 100 Mechanical Ventilator 40 07/24/17 20:00 40 07/24/17 20:00 102 07/24/17 20:00 99.1 104 28 118/74 100 Mechanical Ventilator 40 07/24/17 19:23 103 25 40 07/24/17 19:00 102 23 109/72 100 Mechanical Ventilator 40 07/24/17 18:00 99 25 104/60 100 Mechanical Ventilator 40 07/24/17 17:08 98 20 Mechanical Ventilator 07/24/17 17:00 96 23 106/57 100 Mechanical Ventilator 40 07/24/17 16:41 96 22 40 07/24/17 16:00 99.3 99 28 105/62 100 Mechanical Ventilator 40 07/24/17 16:00 96 07/24/17 15:27 100 27 40 07/24/17 15:00 99 26 106/65 100 Mechanical Ventilator 40 07/24/17 14:00 97 26 116/64 100 Mechanical Ventilator 40 07/24/17 13:30 40 07/24/17 13:20 108 29 40 07/24/17 13:00 99 24 111/62 100 Mechanical Ventilator 40 07/24/17 12:00 99.3 97 23 105/61 100 Mechanical Ventilator 40 07/24/17 12:00 98 07/24/17 12:00 40 07/24/17 11:00 97 22 100/63 100 Mechanical Ventilator 40 07/24/17 10:38 102 25 40 07/24/17 10:00 98 23 112/66 100 Mechanical Ventilator 40 07/24/17 09:19 95 22 40 17 09:18 100 07/24/17 09:00 96 22 104/65 100 Mechanical Ventilator 40 Objective: WDWN very ill intubated clear breath sounds bilaterally without rhonchi or wheeze [id number] without MRG NABS nontender no HSM; NGT no CC some edema mild reduced LOC CHERIEEUSEBIO Jul 25, 2017 08:42
[2017-07-25] MEDS ORDERED: Sorbitol Solution UD 30ml GT ONE (09:30)
[2017-07-25] MEDS: Vancomycin 750mg/NS 250ml IVPB SCH (10:00)
--- NOTE | 2017-07-25 11:01 | Diagnostic Imaging Report ---
APPROVED REPORT CPT Code: 33295 Present Symptoms Comments: R/O DVT BILATERAL: Imaging reveals a patent deep venous system bilaterally. There is no evidence of thrombus within the femoral, popliteal or tibial segments. The greater saphenous veins are also within normal limits. Doppler indicates normal spontaneous flow within these segments.
--- NOTE | 2017-07-25 11:48 | General Progress Note ---
Assessment/Plan Assessment/Plan Assessment - UGIB due to gastric ulcer - stabilized - shock- stabilized - severe thrombocytopenia - lactic acidosis - improved - resp failure - renal failure - Cirrhotic liver - Guarded Recommendations - platelet transfusion PRN - RBC transfusion PRN - Restart TF - supportive care - await trach - pulmonary f/u - abx - PPI Subjective Allergies: Coded Allergies: CODEINE (Verified Allergy, Unknown, 11/15/16) Subjective Above noted NPO for trach no events overnight Objective Last 24 Hour Vital Signs Date Time Temp Pulse Resp B/P (MAP) Pulse Ox O2 Delivery O2 Flow Rate FiO2 07/25/17 11:00 110 22 139/76 100 Mechanical Ventilator 40 07/25/17 10:44 109 24 40 07/25/17 10:00 106 22 128/75 100 Mechanical Ventilator 40 07/25/17 09:22 106 22 40 07/25/17 09:00 106 21 112/69 100 Mechanical Ventilator 40 07/25/17 08:00 40 07/25/17 08:00 99.3 106 21 116/65 100 Mechanical Ventilator 40 07/25/17 08:00 109 07/25/17 07:00 105 23 137/92 100 Mechanical Ventilator 40 07/25/17 06:59 105 21 40 07/25/17 06:00 111 26 124/69 100 Mechanical Ventilator 40 07/25/17 05:07 113 23 40 07/25/17 05:00 114 28 147/77 100 Mechanical Ventilator 40 07/25/17 04:00 98.7 112 26 116/65 100 Mechanical Ventilator 40 07/25/17 04:00 40 07/25/17 04:00 113 07/25/17 03:14 113 26 40 07/25/17 03:00 114 28 127/73 100 Mechanical Ventilator 40 07/25/17 02:45 99.3 07/25/17 02:00 99.3 113 26 140/70 100 Mechanical Ventilator 40 07/25/17 01:24 112 28 40 07/25/17 01:00 110 28 124/76 100 Mechanical Ventilator 40 07/25/17 00:00 98.7 107 26 124/74 100 Mechanical Ventilator 40 07/25/17 00:00 40 07/25/17 00:00 109 07/24/17 23:08 109 26 40 07/24/17 23:00 110 28 134/78 100 Mechanical Ventilator 40 07/24/17 22:00 109 26 139/82 100 Mechanical Ventilator 40 07/24/17 21:18 106 26 40 07/24/17 21:00 106 26 142/80 100 Mechanical Ventilator 40 07/24/17 20:00 40 07/24/17 20:00 102 07/24/17 20:00 99.1 104 28 118/74 100 Mechanical Ventilator 40 07/24/17 19:23 103 25 40 07/24/17 19:00 102 23 109/72 100 Mechanical Ventilator 40 07/24/17 18:00 99 25 104/60 100 Mechanical Ventilator 40 07/24/17 17:08 98 20 Mechanical Ventilator 07/24/17 17:00 96 23 106/57 100 Mechanical Ventilator 40 07/24/17 16:41 96 22 40 07/24/17 16:00 99.3 99 28 105/62 100 Mechanical Ventilator 40 07/24/17 16:00 96 07/24/17 15:27 100 27 40 07/24/17 15:00 99 26 106/65 100 Mechanical Ventilator 40 07/24/17 14:00 97 26 116/64 100 Mechanical Ventilator 40 07/24/17 13:30 40 07/24/17 13:20 108 29 40 07/24/17 13:00 99 24 111/62 100 Mechanical Ventilator 40 07/24/17 12:00 99.3 97 23 105/61 100 Mechanical Ventilator 40 07/24/17 12:00 98 07/24/17 12:00 40 Intake and Output 07/25/17 07/26/17 19:00 07:00 Intake Total 55 ml Output Total 475 ml Balance -420 ml Tube Feeding 55 ml Output Urine Total 475 ml Laboratory Tests 07/24/17 14:30: White Blood Count 6.5, Red Blood Count 2.27L, Hemoglobin 6.8*L, Hematocrit 22.6L , Mean Corpuscular Volume 99, Mean Corpuscular Hemoglobin 30.0, Mean Corpuscular Hemoglobin Concent 30.2L, Red Cell Distribution Width 14.5, Platelet Count 90L, Mean Platelet Volume 8.8, Neutrophils (%) (Auto) , Lymphocytes (%) (Auto) , Monocytes (%) (Auto) , Eosinophils (%) (Auto) , Basophils (%) (Auto) , Differential Total Cells Counted 100, Neutrophils % ( Manual) 72, Lymphocytes % (Manual) 15L, Monocytes % (Manual) 7, Eosinophils % ( Manual) 2, Basophils % (Manual) 1, Band Neutrophils 3, Platelet Estimate DecreasedL, Platelet Morphology Normal, Hypochromasia 2+, Anisocytosis 1+, Target Cells 1+ 07/25/17 04:00: White Blood Count 7.9, Red Blood Count 3.06L, Hemoglobin 9.8#L, Hematocrit 28.8L , Mean Corpuscular Volume 94, Mean Corpuscular Hemoglobin 31.9H, Mean Corpuscular Hemoglobin Concent 34.0, Red Cell Distribution Width 14.9H, Platelet Count 122L, Mean Platelet Volume 10.9H, Neutrophils (%) (Auto) 74.0, Lymphocytes (%) (Auto) 14.4L, Monocytes (%) (Auto) 8.6, Eosinophils (%) (Auto) 2.2, Basophils (%) (Auto) 0.8, Prothrombin Time 12.9H, Prothromb Time International Ratio 1.2H, Sodium Level 142, Potassium Level 3.7, Chloride Level 110H, Carbon Dioxide Level 27, Anion Gap 5, Blood Urea Nitrogen 24H, Creatinine 1.5H, Estimat Glomerular Filtration Rate 57.1, Glucose Level 103, Calcium Level 8.0L, Total Bilirubin 2.7H, Direct Bilirubin 2.2H, Aspartate Amino Transf (AST/ SGOT) 44H, Alanine Aminotransferase (ALT/SGPT) 20, Alkaline Phosphatase 215H, Total Protein 5.5L, Albumin 1.8L, Globulin 3.7, Albumin/Globulin Ratio 0.5L 07/25/17 08:50: Vancomycin Level Trough 19.8H Height (Feet): 5 Height (Inches): 6.00 Weight (Pounds): 196 Objective WDWN AA man NCAT supple Coarse BS RR abd soft, (+) GT trace edema obtunded MANNY KAUR Jul 25, 2017 11:48
[2017-07-25] MEDS: LR 1000ml 1,000 ML IVLG SCH ×2 (11:53→12:26)
[2017-07-25] MEDS ORDERED: DiphenhydrAMINE 50mg/ml Inj IVP PRN (12:00)
[2017-07-25] MEDS ORDERED: Atropine Inj 1mg/10ml Syr IV PRN (12:00)
[2017-07-25] MEDS ORDERED: Midazolam 2mg/2ml Inj IVP PRN (12:00)
[2017-07-25] MEDS ORDERED: fentaNYL 100 mcg/2 mL IV PRN (12:00)
--- NOTE | 2017-07-25 12:32 | Anethesia Preoperative Eval ---
Anesthesia Pre-op PMH/ROS General Date of Evaluation: Jul 25, 2017 Time of Evaluation: 10:50 Anesthesiologist: Hemant ASA Score: ASA 4 Mallampati Score Class I : Soft palate, uvula, fauces, pillars visible Class II: Soft palate, uvula, fauces visible Class III: Soft palate, base of uvula visible Class IV: Only hard plate visible Mallampati Classification: Class III Surgeon: Salvador Diagnosis: Respiratory failure Surgical Procedure: Tracheostomy Anesthesia History: none Social History: smoking - h/o, alcohol use - h/o abuse, drug use - cocaine pos. IVDA Allergies: Coded Allergies: CODEINE (Verified Allergy, Unknown, 11/15/16) Past Medical History Cardiovascular: Reports: HTN, CAD, Denies: [place], valve dz, arrhythmia, other Pulmonary: Reports: COPD, other - h/o RF trach in the past Gastrointestinal/Genitourinary: Reports: GERD, CRI, other - liver cirrosis Neurologic/Psychiatric: Reports: CVA, Denies: dementia, depression/anxiety, TIA, other Endocrine: Denies: DM, hypothyroidism, steroids, other HEENT: Denies: cataract (L), cataract (R), glaucoma, [place] (L), [place] (R), other Hematology/Immune: Reports: anemia, bleeding disorder - severe trombocytopenia , Denies: DVT, other Musculoskeletal/Integumentary: Reports: DJD, edema - bilateral LE, Denies: OA, RA, DDD, other PMH Narrative: as above PSxH Narrative: Trach + see H&P Anesthesia Pre-op Phys. Exam Physician Exam Last Vital Signs Date Time Temp Pulse Resp B/P (MAP) Pulse Ox O2 Delivery O2 Flow Rate FiO2 07/25/17 12:00 40 07/25/17 12:00 107 07/25/17 12:00 98.8 22 128/77 100 Mechanical Ventilator 07/17/17 12:04 50.0 Constitutional: NAD Neurologic: other - unable to obtaine Cardiovascular: RRR Respiratory: other - diminished sounds bilateral rhonki and cracles Gastrointestinal: S/NT/ND Airway Exam Mallampati Score: Class III - intubated MO: limited Neck: stiff ROM: limited Teeth: missing Dentures: no upper, no lower Anesthesia Pre-op A/P Labs Hematology Test 07/24/17 14:30 07/25/17 04:00 White Blood Count 6.5 K/UL (4.8-10.8) 7.9 K/UL (4.8-10.8) Red Blood Count 2.27 M/UL (4.70-6.10) L 3.06 M/UL (4.70-6.10) L Hemoglobin 6.8 G/DL (14.2-18.0) *L 9.8 G/DL (14.2-18.0) #L Hematocrit 22.6 % (42.0-52.0) L 28.8 % (42.0-52.0) L Mean Corpuscular Volume 99 FL (80-99) 94 FL (80-99) Mean Corpuscular Hemoglobin 30.0 PG (27.0-31.0) 31.9 PG (27.0-31.0) H Mean Corpuscular Hemoglobin Concent 30.2 G/DL (32.0-36.0) L 34.0 G/DL (32.0-36.0) Red Cell Distribution Width 14.5 % (11.6-14.8) 14.9 % (11.6-14.8) H Platelet Count 90 K/UL (150-450) L 122 K/UL (150-450) L Mean Platelet Volume 8.8 FL (6.5-10.1) 10.9 FL (6.5-10.1) H Neutrophils (%) (Auto) % (45.0-75.0) 74.0 % (45.0-75.0) Lymphocytes (%) (Auto) % (20.0-45.0) 14.4 % (20.0-45.0) L Monocytes (%) (Auto) % (1.0-10.0) 8.6 % (1.0-10.0) Eosinophils (%) (Auto) % (0.0-3.0) 2.2 % (0.0-3.0) Basophils (%) (Auto) % (0.0-2.0) 0.8 % (0.0-2.0) Differential Total Cells Counted 100 Neutrophils % (Manual) 72 % (45-75) Lymphocytes % (Manual) 15 % (20-45) L Monocytes % (Manual) 7 % (1-10) Eosinophils % (Manual) 2 % (0-3) Basophils % (Manual) 1 % (0-2) Band Neutrophils 3 % (0-8) Platelet Estimate Decreased L Platelet Morphology Normal Hypochromasia 2+ Anisocytosis 1+ Target Cells 1+ Coagulation Test 07/25/17 04:00 Prothrombin Time 12.9 SEC (9.30-11.50) H Prothromb Time International Ratio 1.2 (0.9-1.1) H Chemistry Test 07/25/17 04:00 Sodium Level 142 MMOL/L (136-145) Potassium Level 3.7 MMOL/L (3.5-5.1) Chloride Level 110 MMOL/L (98-107) H Carbon Dioxide Level 27 MMOL/L (21-32) Anion Gap 5 mmol/L (5-15) Blood Urea Nitrogen 24 mg/dL (7-18) H Creatinine 1.5 MG/DL (0.55-1.30) H Estimat Glomerular Filtration Rate 57.1 mL/min (>60) Glucose Level 103 MG/DL (74-106) Calcium Level 8.0 MG/DL (8.5-10.1) L Total Bilirubin 2.7 MG/DL (0.2-1.0) H Direct Bilirubin 2.2 MG/DL (0.0-0.3) H Aspartate Amino Transf (AST/SGOT) 44 U/L (15-37) H Alanine Aminotransferase (ALT/SGPT) 20 U/L (12-78) Alkaline Phosphatase 215 U/L (46-116) H Total Protein 5.5 G/DL (6.4-8.2) L Albumin 1.8 G/DL (3.4-5.0) L Globulin 3.7 g/dL Albumin/Globulin Ratio 0.5 (1.0-2.7) L Risk Assessment & Plan Assessment: ASA 4 Plan: GA with ETT Status Change Before Surgery: No Pre-Antibiotics Drug: as scheduled JAILYN GOMEZ M.D. Jul 25, 2017 12:32
[2017-07-25] MEDS ORDERED: Lidocaine 1% 10mg/ml/Epi 0.005mg/ml 30ml vial INJ ONE (14:16)
[2017-07-25] MEDS ORDERED: LR 1000ml ONE (14:30)
[2017-07-25] MEDS ORDERED: Zemuron 50mg/5ml Inj IV ONE (14:30)
--- NOTE | 2017-07-25 14:43 | General Progress Note ---
Progress Note Progress Note Surgery: spoke with family member and discussed condition. recommend trach again given current condition and history. consent obtained will proceed with trach today. orders, labs, chart reviewed. Solomon Brito Jul 25, 2017 14:43
--- NOTE | 2017-07-25 14:43 | Pre-Procedure Note/Attestation ---
Pre-Procedure Note/Attestation Complete Prior to Procedure Planned Procedure: not applicable Procedure Narrative: tracheostomy Indications for Procedure Pre-Operative Diagnosis: respiratory failure requiring prolonged ventilator support Attestation I attest that I discussed the nature of the procedure; its benefits; risks and complications; and alternatives (and the risks and benefits of such alternatives ), prior to the procedure, with the patient (or the patient's legal abrasives sales representative). I attest that, if there was a reasonable possibility of needing a blood transfusion, the patient (or the patient's legal abrasives sales representative) was given the [facility] standardized written summary, pursuant to the Madhu Miguel Blood Safety Act ([place] Health and Safety Code # 1645, as amended). I attest that I re-evaluated the patient just prior to the surgery and that there has been no change in the patient's H&P, except as documented below: Solomon Brito Jul 25, 2017 14:43
--- NOTE | 2017-07-25 15:26 | Immediate Post-Op Evaluation ---
Immediate Post-Op Evalulation Immediate Post-Op Evalulation Procedure: Tracheostomy Date of Evaluation: Jul 25, 2017 Time of Evaluation: 15:42 IV Fluids: 250 LR Blood Products: 0 Estimated Blood Loss: 10 Urinary Output: 0 Blood Pressure Systolic: 126 Blood Pressure Diastolic: 76 Pulse Rate: 98 Respiratory Rate: 20 - Mech Vent O2 Sat by Pulse Oximetry: 100 Temperature (Fahrenheit): 98.6 Pain Score (1-10): 0 Nausea: No Vomiting: No Complications 0 Patient Status: no response, patent, ventilated, none Hydration Status: adequate Drug: Gregory Toure MD Jul 25, 2017 15:26
[2017-07-25] MEDS: Vancomycin 1.5 GM/D5W 250ML IVPB SCH (15:33)
[2017-07-25] MEDS ORDERED: Tubing IV Blood Pump IV ONE (17:35)
[2017-07-25] MEDS ORDERED: 1/2 NS 1000ml IV ONE (17:35)
[2017-07-25] MEDS ORDERED: Tubing IV Secondary IV ONE (17:35)
[2017-07-25] MEDS ORDERED: NS 500ML ONE (17:35)
--- NOTE | 2017-07-25 18:44 | Consultation ---
History of Present Illness General Date patient seen: Jul 24, 2017 Chief Complaint: Altered Mental Status Reason for Consultation: prolonged ventilator support. trach eval Present Illness HPI 62 year old male with multiple medical problems and prior hospitalizations who presented in septic shock/ respiratory failure requiring intubation. Has history of PEG and Trach. Was doing well and decannulated trach not too long ago (approximately 1 month). Unfortunately became septic again and during this hospitalization he is again experiencing declined respiratory function and difficulty with weaning from ventilator. Surgery called for trach evaluation. History limited given patients current condition and obtained mainly from EMR and family. When seen at bedside patient intubated and unresponsive. Allergies: Coded Allergies: CODEINE (Verified Allergy, Unknown, 11/15/16) Medication History Scheduled Carbamazepine (Tegretol*), 240 MG GT Q12HR, (Reported) Cyclobenzaprine Hcl* (Flexeril*), 5 MG GT THREE TIMES A DAY, (Reported) Lamotrigine (Lamotrigine), 300 MG GT DAILY, (Reported) Levetiracetam (Keppra), 1,500 MG GT BID, (Reported) Omeprazole (Omeprazole), 20 MG GT DAILY, (Reported) Scheduled PRN Acetaminophen 160MG/5ML* (Acetaminophen*), 20 ML GT Q4HR PRN for Fever/Headache/ Mild Pain, (Reported) Clonidine Hcl* (Catapres*), 0.1 MG GT EVERY 8 HOURS PRN for For High Blood Pressure, (Reported) Miscellaneous Medications Protein Supplement (Promod), 946 ML GT, (Reported) Rivaroxaban (Xarelto), 20 MG GT, (Reported) Patient History Limited by: medical condition History Provided By: Family Member, Medical Record Healthcare decision maker N Resuscitation status Advanced Directive on File Past Medical/Surgical History Past Medical/Surgical History: (1) 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 Respiratory/Chest: decreased breath sounds, on vent Cardiovascular/Chest: normal peripheral pulses Abdomen: soft, feeding tube Genitourinary/Rectal: rahman Extremities: normal inspection Skin Exam: warm/dry Neurologic: unresponsiveness Last 24 Hour Vital Signs Date Time Temp Pulse Resp B/P (MAP) Pulse Ox O2 Delivery O2 Flow Rate FiO2 07/25/17 17:00 113 21 164/96 100 Mechanical Ventilator 40 07/25/17 16:48 114 20 40 07/25/17 16:00 99.0 104 15 170/100 100 Mechanical Ventilator 40 07/25/17 16:00 113 07/25/17 15:26 98 20 100 07/25/17 15:23 40 07/25/17 15:22 105 14 40 07/25/17 14:26 111 27 40 07/25/17 14:00 104 23 122/77 100 Mechanical Ventilator 40 07/25/17 13:00 106 23 132/77 100 Mechanical Ventilator 40 07/25/17 12:46 106 22 40 07/25/17 12:00 40 07/25/17 12:00 107 07/25/17 12:00 98.8 106 22 128/77 100 Mechanical Ventilator 40 07/25/17 11:00 110 22 139/76 100 Mechanical Ventilator 40 07/25/17 10:44 109 24 40 07/25/17 10:00 106 22 128/75 100 Mechanical Ventilator 40 07/25/17 09:22 106 22 40 07/25/17 09:00 106 21 112/69 100 Mechanical Ventilator 40 07/25/17 08:00 40 07/25/17 08:00 99.3 106 21 116/65 100 Mechanical Ventilator 40 07/25/17 08:00 109 07/25/17 07:00 105 23 137/92 100 Mechanical Ventilator 40 07/25/17 06:59 105 21 40 07/25/17 06:00 111 26 124/69 100 Mechanical Ventilator 40 07/25/17 05:07 113 23 40 07/25/17 05:00 114 28 147/77 100 Mechanical Ventilator 40 07/25/17 04:00 98.7 112 26 116/65 100 Mechanical Ventilator 40 07/25/17 04:00 40 07/25/17 04:00 113 07/25/17 03:14 113 26 40 07/25/17 03:00 114 28 127/73 100 Mechanical Ventilator 40 07/25/17 02:45 99.3 07/25/17 02:00 99.3 113 26 140/70 100 Mechanical Ventilator 40 07/25/17 01:24 112 28 40 07/25/17 01:00 110 28 124/76 100 Mechanical Ventilator 40 07/25/17 00:00 98.7 107 26 124/74 100 Mechanical Ventilator 40 07/25/17 00:00 40 07/25/17 00:00 109 07/24/17 23:08 109 26 40 07/24/17 23:00 110 28 134/78 100 Mechanical Ventilator 40 07/24/17 22:00 109 26 139/82 100 Mechanical Ventilator 40 07/24/17 21:18 106 26 40 07/24/17 21:00 106 26 142/80 100 Mechanical Ventilator 40 07/24/17 20:00 40 07/24/17 20:00 102 07/24/17 20:00 99.1 104 28 118/74 100 Mechanical Ventilator 40 07/24/17 19:23 103 25 40 07/24/17 19:00 102 23 109/72 100 Mechanical Ventilator 40 Intake and Output 07/25/17 07/26/17 19:00 07:00 Intake Total 55 ml Output Total 705 ml Balance -650 ml Tube Feeding 55 ml Output Urine Total 705 ml # Bowel Movements 4 Laboratory Tests Test 07/25/17 04:00 07/25/17 08:50 White Blood Count 7.9 K/UL (4.8-10.8) Red Blood Count 3.06 M/UL (4.70-6.10) L Hemoglobin 9.8 G/DL (14.2-18.0) #L Hematocrit 28.8 % (42.0-52.0) L Mean Corpuscular Volume 94 FL (80-99) Mean Corpuscular Hemoglobin 31.9 PG (27.0-31.0) H Mean Corpuscular Hemoglobin Concent 34.0 G/DL (32.0-36.0) Red Cell Distribution Width 14.9 % (11.6-14.8) H Platelet Count 122 K/UL (150-450) L Mean Platelet Volume 10.9 FL (6.5-10.1) H Neutrophils (%) (Auto) 74.0 % (45.0-75.0) Lymphocytes (%) (Auto) 14.4 % (20.0-45.0) L Monocytes (%) (Auto) 8.6 % (1.0-10.0) Eosinophils (%) (Auto) 2.2 % (0.0-3.0) Basophils (%) (Auto) 0.8 % (0.0-2.0) Prothrombin Time 12.9 SEC (9.30-11.50) H Prothromb Time International Ratio 1.2 (0.9-1.1) H Sodium Level 142 MMOL/L (136-145) Potassium Level 3.7 MMOL/L (3.5-5.1) Chloride Level 110 MMOL/L (98-107) H Carbon Dioxide Level 27 MMOL/L (21-32) Anion Gap 5 mmol/L (5-15) Blood Urea Nitrogen 24 mg/dL (7-18) H Creatinine 1.5 MG/DL (0.55-1.30) H Estimat Glomerular Filtration Rate 57.1 mL/min (>60) Glucose Level 103 MG/DL (74-106) Calcium Level 8.0 MG/DL (8.5-10.1) L Total Bilirubin 2.7 MG/DL (0.2-1.0) H Direct Bilirubin 2.2 MG/DL (0.0-0.3) H Aspartate Amino Transf (AST/SGOT) 44 U/L (15-37) H Alanine Aminotransferase (ALT/SGPT) 20 U/L (12-78) Alkaline Phosphatase 215 U/L (46-116) H Total Protein 5.5 G/DL (6.4-8.2) L Albumin 1.8 G/DL (3.4-5.0) L Globulin 3.7 g/dL Albumin/Globulin Ratio 0.5 (1.0-2.7) L Vancomycin Level Trough 19.8 ug/mL (5.0-12.0) H Height (Feet): 5 Height (Inches): 6.00 Weight (Pounds): 196 Medications Current Medications Medications (Trade) Dose Ordered Sig/Romelia Route PRN Reason Start Time Stop Time Status Last Admin Dose Admin Acetaminophen (Tylenol) 650 mg Q4H PRN ORAL Mild Pain/Temp > 100.5 07/14/17 20:00 1/2/18 19:59 07/23/17 05:56 Acetaminophen (Tylenol) 650 mg Q4H PRN ORAL Fever/Headache/Mild Pain 07/14/17 20:00 08/13/17 19:59 07/25/17 02:15 Artificial Tears (Lacri-Lube) 1 applic BID BOTH EYES 07/20/17 11:15 08/19/17 11:14 07/25/17 18:34 Carbamazepine (TEGretol) 250 mg Q12HR GT 07/14/17 21:00 08/13/17 20:59 07/25/17 08:23 Chlorhexidine Gluconate (Natalie-Hex 2%) 1 applic DAILY@2000 TOPIC 07/26/17 20:00 08/25/17 19:59 Heparin Sodium/ Sodium Chloride (Heparin 2000 units/Ns 1000ml premix) 2,000 unit ONCE PRN INJ PICC PLACEMENT 07/26/17 15:00 07/26/17 23:59 Lamotrigine (LaMICtal) 300 mg DAILY GT 07/15/17 09:00 08/14/17 08:59 07/25/17 08:24 Lansoprazole (Prevacid) 30 mg Q12HR GT 07/15/17 13:00 08/14/17 12:59 07/25/17 08:27 Levetiracetam (Keppra) 1,500 mg Q12HR GT 07/16/17 21:00 08/15/17 20:59 07/25/17 08:26 Lidocaine HCl (Xylocaine 1% 30ml) 30 ml ONCE PRN INJ PICC PLACEMENT 07/26/17 15:00 07/26/17 23:59 Lorazepam (Ativan 2mg/ml 1ml) 1 mg Q3HR PRN IV For Anxiety 07/23/17 22:00 07/30/17 21:59 07/24/17 23:16 Trimethoprim/ Sulfamethoxazole (Bactrim-DS) 10 ml EVERY 12 HOURS GT 07/19/17 21:00 07/26/17 20:59 07/25/17 08:27 Vancomycin HCl (Vanco rx to dose) 1 ea DAILY PRN MISC Per rx protocol 07/18/17 09:30 08/17/17 09:29 Vancomycin HCl/ Dextrose 250 ml @ 125 mls/hr Q24H IVPB 07/25/17 15:00 07/30/17 14:59 07/25/17 15:33 Assessment/Plan Problem List: (1) Respiratory failure Assessment & Plan: 62M septic shock in ICU intubated on vent. difficulty weaning from vent and prolonged vent support necessary. Given history and current condition recommend Tracheostomy again for protected airway and likely prolonged ventilatory support. Discuss with patients family and obtained consent. ICD Codes: J96.90 - Respiratory failure, unspecified, unspecified whether with hypoxia or hypercapnia SNOMED: [id number] Status: unchanged Solomon Brito Jul 25, 2017 18:44
--- NOTE | 2017-07-25 18:46 | Brief Operative Note ---
Immediate Post Operative Note Operative Note Pre-op Diagnosis: respiratory failure requiring prolonged ventilator support Procedure: tracheostomy Findings: consistent w/pre-op dx studies Surgeon: robyn Anesthesiologist: Jose Anesthesia: general Specimen: none Complications: none Condition: stable Fluids: see records Estimated Blood Loss: minimal Implant(s) used?: Yes - 8F Solomon Mclaughlin Jul 25, 2017 18:46
[2017-07-26] VITALS (19 sets, daily range): BP systolic 92–133; BP diastolic 52–76
--- NOTE | 2017-07-26 05:30 | Operative Note - Dictated ---
DATE OF OPERATION: 07/25/2017 PREOPERATIVE DIAGNOSIS: Respiratory failure requiring prolonged ventilator support. POSTOPERATIVE DIAGNOSIS: Respiratory failure requiring prolonged ventilator support. OPERATION PERFORMED: Tracheostomy. ATTENDING SURGEON: Solomon Brito M.D. NATUROPATHIC ONCOLOGY PROVIDER: None. ANESTHESIOLOGIST: Gregory Garcia M.D. 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 SEPCIMENS: None. COMPLICATIONS: None. CONDITION: Stable. FLUIDS: Please see anesthesia records. ANTIBIOTICS: The patient was on scheduled intravenous antibiotics for active infection prior to entering the operating room. ESTIMATED BLOOD LOSS: Minimal. IMPLANTS: An 8-Cambodian Shiley tracheostomy tube placed. COUNTS: Sponge and needle count correct x2. WOUND CLASSIFICATION: Class 1. INDICATIONS FOR PROCEDURE: The patient is a 62-year-old male, who was recently hospitalized for prolonged period of time after becoming septic and experiencing seizures. At that time, he had a respiratory failure with prolonged ventilator support and had a tracheostomy placed and a PEG tube. He then slowly recovered and reached a point that he could be discharged and was improving. His tracheostomy was removed approximately 1 month ago. He recently presented to [facility] in septic shock after likely experiencing another seizure. During this admission, the patient was continued to have respiratory failure, requiring intubation and now a prolonged ventilator support. Given his history and current condition and slow improvement he will likely require ventilator support for some time now. Surgery was called for evaluation of a tracheostomy at which time was recommended and indicated. The risks, benefits, and alternatives were discussed with the patient's decision maker and daughter in detail. She expressed understanding and consented to surgery. OPERATIVE NOTE: The patient was taken to the operating room and left in his intensive care unit bed for procedure to be performed. All bony prominences were well padded. SCDs were initiated. Preoperative time-out was taken identifying the patient, procedure, operative staff, and surgical staff. Prior to entering the operating room, the patient already had a central line in the right IJ, endotracheal tube, PEG and [place]. The patient was already on scheduled intravenous antibiotics for active infection. The neck was then prepped and draped in standard surgical fashion. We began by identifying the old tracheostomy scar. Using the prior tracheostomy incision a fresh 15 blade was used to incise through the skin. Using blunt dissection and minimal electrocautery and knife and scalpel, we were able to proceed down through the patient's prior tracheostomy closure of scar to the point the tracheostomy was identified. The defect in the tracheostomy from the prior tracheostomy site was still immature within the tract and into the trachea. Upon entering the trachea through the prior tracheostomy site, the ET tube was identified. In correlation with the anesthesiologist the ET tube was slowly withdrawn and upon withdrawal pass the tracheostomy site an 8-Cambodian Shiley tracheostomy was inserted. A tracheal hook was used to stabilize the trachea as the new tracheostomy was placed. At this time, the patient was attached to the ventilator again through the tracheostomy and had good volumes without complication. The second area were cleaned and 2-0 nylon sutures were placed to bolster the trachea and endotracheal balloon was inflated. Dressings were then applied. The patient tolerated the procedure well, was taken back in to the intensive care unit in stable condition. Solomon Brito M.D. DR: ANIL JOB#: [id number] CC:
[2017-07-26 07:15] LABS: OTHERS PATHOLOGIST COMMENT
[2017-07-26] MEDS: Lacri-Lube Opth Oint 3.5gm BOTH EYES SCH ×3 (09:18→18:00)
[2017-07-26] MEDS: Bactrim Susp 20ml GT SCH ×2 (09:18→22:12)
[2017-07-26] MEDS: LaMICtal 150mg tab GT SCH (09:18)
[2017-07-26] MEDS: carBAMazepine 200mg tab GT SCH ×2 (09:19→21:40)
[2017-07-26] MEDS: levETIRAcetam 500mg/5ml Liquid GT SCH ×2 (09:19→21:39)
--- NOTE | 2017-07-26 09:33 | 48 Hour Post Anesthesia Eval ---
Post Anesthesia Evaluation Procedure: Tracheostomy Date of Evaluation: Jul 26, 2017 Time of Evaluation: 09:32 Blood Pressure Systolic: 145 0: 68 Pulse Rate: 77 Respiratory Rate: 16 Temperature (Fahrenheit): 98 O2 Sat by Pulse Oximetry: 99 Airway: patent Nausea: No Vomiting: No Pain Intensity: 0 Hydration Status: adequate Mental Status/LOC: patient returned to baseline Post-Anesthesia Complications: none Follow-up care needed: patient intructions given Robbie Baxter M.D. Jul 26, 2017 09:33
--- NOTE | 2017-07-26 11:47 | General Progress Note ---
Progress Note Progress Note Surgery: doing well post op. trach intact and functional without issues. on vent. condition stable. afebrile, HD stable, exam stable, trach site clean. trach functional. POD#1 s/p trach. recovering -continue with current care and management -trach care and management. thank you for allowing me to participate in Mr. Anum bhatia Solomon Brito Jul 26, 2017 11:47
--- NOTE | 2017-07-26 12:45 | Infectious Diseases Prog Note ---
"Assessment/Plan Assessment/Plan antibiotics : vancomycin, bactrim A 1. MRSA | klebsiella pneumonia 2. respiratory failure 3. thrombocytopenia improving 4. MRSA sepsis 5. renal failure improving 6. HTN 7. leucocytosis improving P 1. continue vancomycin iv 15 more days 2. continue bactrim 2 more days 3. will follow up cultures Subjective ROS Limited/Unobtainable: Yes Allergies: Coded Allergies: CODEINE (Verified Allergy, Unknown, 11/15/16) Objective Vital Signs Last 24 Hour Vital Signs Date Time Temp Pulse Resp B/P (MAP) Pulse Ox O2 Delivery O2 Flow Rate FiO2 07/26/17 11:30 91 24 40 07/26/17 11:00 96 19 108/59 100 Mechanical Ventilator 40 07/26/17 10:00 96 24 113/69 100 Mechanical Ventilator 40 07/26/17 09:33 77 16 99 07/26/17 09:00 95 19 108/64 100 Mechanical Ventilator 40 07/26/17 08:50 98 25 40 07/26/17 08:00 40 07/26/17 08:00 87 07/26/17 08:00 99.1 92 20 106/52 100 Mechanical Ventilator 40 07/26/17 07:00 93 24 110/64 100 Mechanical Ventilator 40 07/26/17 07:00 93 18 40 07/26/17 06:00 88 24 102/57 100 Mechanical Ventilator 40 07/26/17 05:00 87 24 133/67 100 Mechanical Ventilator 40 07/26/17 04:36 90 17 40 07/26/17 04:00 91 07/26/17 04:00 98.8 92 19 103/56 100 Mechanical Ventilator 40 07/26/17 04:00 40 07/26/17 03:00 91 20 92/55 100 Mechanical Ventilator 40 07/26/17 02:37 86 17 40 07/26/17 02:00 90 20 102/59 100 Mechanical Ventilator 40 07/26/17 01:00 96 20 102/59 100 Mechanical Ventilator 40 07/26/17 00:41 93 18 40 07/26/17 00:00 96 07/26/17 00:00 98.0 91 19 108/63 100 Mechanical Ventilator 40 07/26/17 00:00 40 07/25/17 23:00 97 20 96/53 100 Mechanical Ventilator 40 07/25/17 22:40 94 23 40 07/25/17 22:00 95 23 99/56 100 Mechanical Ventilator 40 07/25/17 21:04 96 23 40 07/25/17 21:00 95 20 87/50 100 Mechanical Ventilator 40 07/25/17 20:00 40 07/25/17 20:00 101 07/25/17 20:00 98.8 97 19 89/95 100 Mechanical Ventilator 40 07/25/17 19:22 101 23 40 07/25/17 19:20 101 25 40 07/25/17 19:00 103 21 107/65 100 Mechanical Ventilator 40 07/25/17 18:00 104 22 133/80 100 Mechanical Ventilator 40 07/25/17 17:00 113 21 164/96 100 Mechanical Ventilator 40 07/25/17 16:48 114 20 40 07/25/17 16:00 99.0 104 15 170/100 100 Mechanical Ventilator 40 07/25/17 16:00 113 07/25/17 15:26 98 20 100 07/25/17 15:23 40 07/25/17 15:22 105 14 40 07/25/17 14:26 111 27 40 07/25/17 14:00 104 23 122/77 100 Mechanical Ventilator 40 07/25/17 13:00 106 23 132/77 100 Mechanical Ventilator 40 07/25/17 12:46 106 22 40 Height (Feet): 5 Height (Inches): 6.00 Weight (Pounds): 201 HEENT: status post trach Respiratory/Chest: lungs clear Cardiovascular: normal rate, regular rhythm, no gallop/murmur Abdomen: soft, non tender, other - GT Extremities: other - + edema, right IJ catheter NIKOLAY HANNA Jul 26, 2017 12:45"
--- NOTE | 2017-07-26 13:29 | Wound Care Consultation ---
Wound Assessment Wound Assessment : Wound Present on Admission: No New Wound: Yes Status Change of Wound: No Wound Location Body Site Modif: left Wound Location Body Site: ear Wound Type: pressure ulcer Martin Test: Does not Martin Pressure Ulcer Stage: Unstageable Wound Thickness: Full Thickness Wound Length: 2.0 Wound Width: 0.5 Percent of Wound [place]/Red: 50 Percent of Wound Black/Brown: 50 Wound Drainage Description: Serosanguineous Wound Drainage Amount: Scant Wound Drainage Odor: None/Absent Tissue Surrounding Wound: Erythemic Wound General Appearance: Reddened - black scab, Draining Wound Comment #1 Left ear unstagable pressure ulcer #2 Blister on left hand noted with good progress. Dry scab open to air Recommendation -Local wound care per protocol -Keep clean and dry -Turn and reposition -Optimize nutrition -Offload both heels -Heel protector on both heels -Assess and f/u accordingly for any changes KELECHI IGNACIO RN Jul 26, 2017 13:29
[2017-07-26] MEDS ORDERED: Heparin 2000 units/Ns 1000ml INJ PRN (15:00)
[2017-07-26] MEDS ORDERED: Lidocaine 1% Plain 30 ml INJ PRN (15:00)
[2017-07-26] MEDS: Vancomycin 1.5 GM/D5W 250ML IVPB SCH (15:00)
--- NOTE | 2017-07-26 15:52 | Critical Care Progress Note ---
Assessment/Plan Assessment/Plan IMPRESSION sepsis elevated lactic acid respiratory failure ho alcholic liver disease seizure disorder acute renal failure possible GIB coffee ground emesis MRSA sepsis polymicrobial infection KPC infection anemia s/p transfusion s/p trach PLAN trach and GT ventilator management and try to wean follow up ABG seizure meds IV antibiotics noted ID evaluation noted on feeds off anticoag for now- resume when safe d/w family - still full code weaning as able still with poor LOC back to subacute when stable impression, plan, and exam edited and reviewed in detail care discussed with assembly mechanic - Subjective Interval Events: s/p trach ROS Limited/Unobtainable: Yes EKG Rhythm: Sinus Rhythm I&O: Intake and Output 07/26/17 07/27/17 19:00 07:00 Intake Total 500 ml Output Total 295 ml Balance 205 ml Tube Feeding 440 ml Other 60 ml Output Urine Total 295 ml Critical Care - Objective ET-Tube: 7.5 ET Position: 23 Last 24 Hour Vital Signs Date Time Temp Pulse Resp B/P (MAP) Pulse Ox O2 Delivery O2 Flow Rate FiO2 07/26/17 15:00 92 22 123/66 100 Mechanical Ventilator 40 07/26/17 14:00 85 21 101/63 100 Mechanical Ventilator 40 07/26/17 13:00 94 22 101/62 100 Mechanical Ventilator 40 07/26/17 12:45 93 24 40 07/26/17 12:00 99.1 97 21 115/72 100 Mechanical Ventilator 40 07/26/17 12:00 40 07/26/17 12:00 40 07/26/17 12:00 91 07/26/17 11:30 91 24 40 07/26/17 11:00 96 19 108/59 100 Mechanical Ventilator 40 07/26/17 10:00 96 24 113/69 100 Mechanical Ventilator 40 07/26/17 09:33 77 16 99 07/26/17 09:00 95 19 108/64 100 Mechanical Ventilator 40 07/26/17 08:50 98 25 40 07/26/17 08:00 40 07/26/17 08:00 87 07/26/17 08:00 99.1 92 20 106/52 100 Mechanical Ventilator 40 07/26/17 07:00 93 24 110/64 100 Mechanical Ventilator 40 07/26/17 07:00 93 18 40 07/26/17 06:00 88 24 102/57 100 Mechanical Ventilator 40 07/26/17 05:00 87 24 133/67 100 Mechanical Ventilator 40 07/26/17 04:36 90 17 40 07/26/17 04:00 91 07/26/17 04:00 98.8 92 19 103/56 100 Mechanical Ventilator 40 07/26/17 04:00 40 07/26/17 03:00 91 20 92/55 100 Mechanical Ventilator 40 07/26/17 02:37 86 17 40 07/26/17 02:00 90 20 102/59 100 Mechanical Ventilator 40 07/26/17 01:00 96 20 102/59 100 Mechanical Ventilator 40 07/26/17 00:41 93 18 40 07/26/17 00:00 96 07/26/17 00:00 98.0 91 19 108/63 100 Mechanical Ventilator 40 07/26/17 00:00 40 07/25/17 23:00 97 20 96/53 100 Mechanical Ventilator 40 07/25/17 22:40 94 23 40 07/25/17 22:00 95 23 99/56 100 Mechanical Ventilator 40 07/25/17 21:04 96 23 40 07/25/17 21:00 95 20 87/50 100 Mechanical Ventilator 40 07/25/17 20:00 40 07/25/17 20:00 101 07/25/17 20:00 98.8 97 19 89/95 100 Mechanical Ventilator 40 07/25/17 19:22 101 23 40 07/25/17 19:20 101 25 40 07/25/17 19:00 103 21 107/65 100 Mechanical Ventilator 40 07/25/17 18:00 104 22 133/80 100 Mechanical Ventilator 40 07/25/17 17:00 113 21 164/96 100 Mechanical Ventilator 40 07/25/17 16:48 114 20 40 07/25/17 16:00 99.0 104 15 170/100 100 Mechanical Ventilator 40 07/25/17 16:00 113 Labs: Labs Test 07/24/17 14:30 07/25/17 04:00 07/25/17 08:50 White Blood Count 6.5 K/UL (4.8-10.8) 7.9 K/UL (4.8-10.8) Red Blood Count 2.27 M/UL (4.70-6.10) 3.06 M/UL (4.70-6.10) Hemoglobin 6.8 G/DL (14.2-18.0) 9.8 G/DL (14.2-18.0) Hematocrit 22.6 % (42.0-52.0) 28.8 % (42.0-52.0) Mean Corpuscular Volume 99 FL (80-99) 94 FL (80-99) Mean Corpuscular Hemoglobin 30.0 PG (27.0-31.0) 31.9 PG (27.0-31.0) Mean Corpuscular Hemoglobin Concent 30.2 G/DL (32.0-36.0) 34.0 G/DL (32.0-36.0) Red Cell Distribution Width 14.5 % (11.6-14.8) 14.9 % (11.6-14.8) Platelet Count 90 K/UL (150-450) 122 K/UL (150-450) Mean Platelet Volume 8.8 FL (6.5-10.1) 10.9 FL (6.5-10.1) Neutrophils (%) (Auto) % (45.0-75.0) 74.0 % (45.0-75.0) Lymphocytes (%) (Auto) % (20.0-45.0) 14.4 % (20.0-45.0) Monocytes (%) (Auto) % (1.0-10.0) 8.6 % (1.0-10.0) Eosinophils (%) (Auto) % (0.0-3.0) 2.2 % (0.0-3.0) Basophils (%) (Auto) % (0.0-2.0) 0.8 % (0.0-2.0) Differential Total Cells Counted 100 Neutrophils % (Manual) 72 % (45-75) Lymphocytes % (Manual) 15 % (20-45) Monocytes % (Manual) 7 % (1-10) Eosinophils % (Manual) 2 % (0-3) Basophils % (Manual) 1 % (0-2) Band Neutrophils 3 % (0-8) Other Cell Type Pathologist comment Platelet Estimate Decreased Platelet Morphology Normal Hypochromasia 2+ Anisocytosis 1+ Target Cells 1+ Prothrombin Time 12.9 SEC (9.30-11.50) Prothromb Time International Ratio 1.2 (0.9-1.1) Sodium Level 142 MMOL/L (136-145) Potassium Level 3.7 MMOL/L (3.5-5.1) Chloride Level 110 MMOL/L (98-107) Carbon Dioxide Level 27 MMOL/L (21-32) Anion Gap 5 mmol/L (5-15) Blood Urea Nitrogen 24 mg/dL (7-18) Creatinine 1.5 MG/DL (0.55-1.30) Estimat Glomerular Filtration Rate 57.1 mL/min (>60) Glucose Level 103 MG/DL (74-106) Calcium Level 8.0 MG/DL (8.5-10.1) Total Bilirubin 2.7 MG/DL (0.2-1.0) Direct Bilirubin 2.2 MG/DL (0.0-0.3) Aspartate Amino Transf (AST/SGOT) 44 U/L (15-37) Alanine Aminotransferase (ALT/SGPT) 20 U/L (12-78) Alkaline Phosphatase 215 U/L (46-116) Total Protein 5.5 G/DL (6.4-8.2) Albumin 1.8 G/DL (3.4-5.0) Globulin 3.7 g/dL Albumin/Globulin Ratio 0.5 (1.0-2.7) Vancomycin Level Trough 19.8 ug/mL (5.0-12.0) Objective: WDWN very ill trach clear breath sounds bilaterally without rhonchi or wheeze [id number] without MRG NABS nontender no HSM; NGT no CC some edema mild reduced LOC EUSEBIO CRESPO Jul 26, 2017 15:52
--- NOTE | 2017-07-26 16:18 | Diagnostic Imaging Report ---
Indications: Needs long-term IV access Technique: Procedure performed at bedside. Procedural timeout performed. Ultrasound confirms patent compressible right basilic vein. Total sterile technique, including sterile probe cover and sterile gel, sterile gloves, hand hygiene, hat, mask,, sterile gown, large sterile drape, and preparation with 2% chlorhexidine utilized. Local anesthesia with 1% lidocaine. Under real-time ultrasound guidance, puncture basilic vein using 21-gauge needle, passage 0.018 guidewire, exchange for 5 Prydeinig peel-away sheath. 5 Prydeinig Bard dual-lumen power PICC cut to 43 cm. It was inserted through the peel-away sheath. Peel-away sheath and guidewire removed. Catheter fixed to the skin. Both catheter ports aspirated and flushed. Patient tolerated procedure well, without immediate complication. Followup chest x-ray obtained, documents catheter tip position at the high right atrium Impression: Successful bedside placement of right arm PICC under sonographic guidance, as described above.
[2017-07-26] MEDS ORDERED: Lidocaine 1% Plain 30 ml INJ ONE (17:30)
[2017-07-26] MEDS ORDERED: Heparin 2000 units/Ns 1000ml INJ ONE (17:30)
[2017-07-26] MEDS ORDERED: Acetaminophen 650mg/20.3ml ORAL PRN (18:00)
[2017-07-26] MEDS ORDERED: LORazepam Inj 2mg/ml 1ml IV PRN (18:00)
[2017-07-26] MEDS ORDERED: Dyna-Hex 2% Top Sol 2oz TOPIC SCH (20:00)
--- NOTE | 2017-07-26 21:27 | General Progress Note ---
Assessment/Plan Assessment/Plan Assessment - UGIB due to gastric ulcer - stabilized - shock- stabilized - severe thrombocytopenia - improving - lactic acidosis - improved - resp failure - s/p trach - renal failure - Cirrhotic liver - Guarded Recommendations - platelet transfusion PRN - RBC transfusion PRN - Continue TF - supportive care - pulmonary f/u - abx - PPI Subjective Allergies: Coded Allergies: CODEINE (Verified Allergy, Unknown, 11/15/16) Subjective Above noted s/p trach back on feeds no other events overnight Objective Last 24 Hour Vital Signs Date Time Temp Pulse Resp B/P (MAP) Pulse Ox O2 Delivery O2 Flow Rate FiO2 07/26/17 20:54 96 27 40 07/26/17 18:54 95 26 40 07/26/17 17:39 94 29 40 07/26/17 17:00 93 20 132/72 100 Mechanical Ventilator 40 07/26/17 16:36 91 25 40 07/26/17 16:00 92 07/26/17 16:00 99.1 92 20 125/74 100 Mechanical Ventilator 40 07/26/17 16:00 40 07/26/17 15:00 92 22 123/66 100 Mechanical Ventilator 40 07/26/17 14:00 85 21 101/63 100 Mechanical Ventilator 40 07/26/17 13:00 94 22 101/62 100 Mechanical Ventilator 40 07/26/17 12:45 93 24 40 07/26/17 12:00 99.1 97 21 115/72 100 Mechanical Ventilator 40 07/26/17 12:00 40 07/26/17 12:00 40 07/26/17 12:00 91 07/26/17 11:30 91 24 40 07/26/17 11:00 96 19 108/59 100 Mechanical Ventilator 40 07/26/17 10:00 96 24 113/69 100 Mechanical Ventilator 40 07/26/17 09:33 77 16 99 07/26/17 09:00 95 19 108/64 100 Mechanical Ventilator 40 07/26/17 08:50 98 25 40 07/26/17 08:00 40 07/26/17 08:00 87 07/26/17 08:00 99.1 92 20 106/52 100 Mechanical Ventilator 40 07/26/17 07:00 93 24 110/64 100 Mechanical Ventilator 40 07/26/17 07:00 93 18 40 07/26/17 06:00 88 24 102/57 100 Mechanical Ventilator 40 07/26/17 05:00 87 24 133/67 100 Mechanical Ventilator 40 07/26/17 04:36 90 17 40 07/26/17 04:00 91 07/26/17 04:00 98.8 92 19 103/56 100 Mechanical Ventilator 40 07/26/17 04:00 40 07/26/17 03:00 91 20 92/55 100 Mechanical Ventilator 40 07/26/17 02:37 86 17 40 07/26/17 02:00 90 20 102/59 100 Mechanical Ventilator 40 07/26/17 01:00 96 20 102/59 100 Mechanical Ventilator 40 07/26/17 00:41 93 18 40 07/26/17 00:00 96 07/26/17 00:00 98.0 91 19 108/63 100 Mechanical Ventilator 40 07/26/17 00:00 40 07/25/17 23:00 97 20 96/53 100 Mechanical Ventilator 40 07/25/17 22:40 94 23 40 07/25/17 22:00 95 23 99/56 100 Mechanical Ventilator 40 Intake and Output 07/26/17 07/27/17 19:00 07:00 Intake Total 790 ml Output Total 385 ml Balance 405 ml IV Total 125 ml Tube Feeding 605 ml Other 60 ml Output Urine Total 385 ml Height (Feet): 5 Height (Inches): 6.00 Weight (Pounds): 201 Objective WDWN AA man NCAT supple, (+) trach Coarse BS RR abd soft, (+) GT trace edema obtunded MANNY KAUR Jul 26, 2017 21:27
[2017-07-26] MEDS: Dyna-Hex 2% Top Sol 2oz TOPIC SCH (21:38)
[2017-07-27] VITALS: BP 119/78
[2017-07-27 04:00] VITALS: BP 127/79
[2017-07-27 05:20] LABS: BASOPHILS % (AUTO) 1.1 % (0.0-2.0); EOSINOPHILS % (AUTO) 1.9 % (0.0-3.0); LYMPHOCYTES % (AUTO) 13.3 % (20.0-45.0); MEAN CORPUSCULAR HEMOGLOBIN 31.8 PG (27.0-31.0); MEAN CORPUSCULAR VOLUME 96 FL (80-99); MEAN PLATELET VOLUME 9.8 FL (6.5-10.1); MONOCYTES % (AUTO) 9.9 % (1.0-10.0); NEUTROPHILS % (AUTO) 73.8 % (45.0-75.0); PLATELET COUNT 160 K/UL (150-450); RED BLOOD COUNT 3.02 M/UL (4.70-6.10); RED CELL DISTRIBUTION WIDTH 16.1 % (11.6-14.8)
[2017-07-27 05:51] LABS: ALANINE AMINOTRANSFERASE 18 U/L (12-78); ALBUMIN/GLOBULIN RATIO 0.4 (1.0-2.7); ANION GAP 9 mmol/L (5-15); ASPARTATE AMINO TRANSFERASE 40 U/L (15-37); CALCIUM 8.1 MG/DL (8.5-10.1); CARBON DIOXIDE 23 MMOL/L (21-32); CHLORIDE 113 MMOL/L (98-107); CREATININE 1.3 MG/DL (0.55-1.30); GLOMERULAR FILTRATION RATE > 60 mL/min (>60); POTASSIUM 3.6 MMOL/L (3.5-5.1); SODIUM 145 MMOL/L (136-145); TOTAL PROTEIN 5.3 G/DL (6.4-8.2)
[2017-07-27 05:53] LABS: BILIRUBIN,DIRECT 1.7 MG/DL (0.0-0.3)
[2017-07-27 08:00] VITALS: BP 142/82
[2017-07-27] MEDS: Lacri-Lube Opth Oint 3.5gm BOTH EYES SCH ×2 (09:14→18:06)
[2017-07-27] MEDS: levETIRAcetam 500mg/5ml Liquid GT SCH ×2 (09:15→21:00)
[2017-07-27] MEDS: Bactrim Susp 20ml GT SCH ×2 (09:15→21:00)
[2017-07-27] MEDS: LaMICtal 150mg tab GT SCH (09:16)
[2017-07-27] MEDS: carBAMazepine 200mg tab GT SCH ×2 (09:16→21:01)
--- NOTE | 2017-07-27 09:35 | General Progress Note ---
Assessment/Plan Problem List: (1) Sepsis ICD Codes: A41.9 - Sepsis, unspecified organism SNOMED: 86441986 Qualifiers: Qualified Codes: A41.9 - Sepsis, unspecified organism (2) Altered mental status ICD Codes: R41.82 - Altered mental status, unspecified SNOMED: 493896523 Qualifiers: Qualified Codes: R41.82 - Altered mental status, unspecified (3) Anoxic encephalopathy syndrome ICD Codes: G93.1 - Anoxic brain damage, not elsewhere classified SNOMED: 782313968 (4) Septic shock ICD Codes: A41.9 - Sepsis, unspecified organism; R65.21 - Severe sepsis with septic shock SNOMED: 15651509 (5) GI (gastrointestinal bleed) ICD Codes: K92.2 - Gastrointestinal hemorrhage, unspecified SNOMED: 75407071 (6) Feeding by G-tube ICD Codes: Z93.1 - Gastrostomy status SNOMED: 200656016, 998461232 (7) Epileptic seizure, generalized ICD Codes: G40.309 - Generalized idiopathic epilepsy and epileptic syndromes, not intractable, without status epilepticus SNOMED: 35353705 (8) Acute urinary retention ICD Codes: R33.8 - Other retention of urine SNOMED: 150762532 (9) Acute on chronic respiratory failure ICD Codes: J96.20 - Acute and chronic respiratory failure, unspecified whether with hypoxia or hypercapnia SNOMED: 12328902, 89825533 Status: stable Status Narrative vent resp care gt feeds monitor for bleeding sz rx abx per id Subjective ROS Limited/Unobtainable: No Constitutional: Reports: malaise, weakness HEENT: Reports: no symptoms Cardiovascular: Reports: no symptoms Respiratory: Reports: no symptoms Gastrointestinal/Abdominal: Reports: rectal bleeding Genitourinary: Reports: no symptoms Neurologic/Psychiatric: Reports: pre-existing deficit Endocrine: Reports: no symptoms Hematologic/Lymphatic: Reports: anemia Allergies: Coded Allergies: CODEINE (Verified Allergy, Unknown, 11/15/16) All Systems: reviewed and negative except above Subjective transferred out of the icu. no event. on the vent. poorly responsive. no bleeding noted. labs reviewed Objective Last 24 Hour Vital Signs Date Time Temp Pulse Resp B/P (MAP) Pulse Ox O2 Delivery O2 Flow Rate FiO2 07/27/17 09:22 95 26 40 07/27/17 08:00 99.4 89 27 142/82 100 Mechanical Ventilator 40 07/27/17 06:30 98 23 40 07/27/17 05:37 98 22 40 07/27/17 04:00 99.7 83 24 127/79 100 Mechanical Ventilator 40 07/27/17 04:00 99 07/27/17 04:00 40 07/27/17 02:50 101 28 40 07/27/17 02:17 100.1 07/27/17 00:30 99 27 40 07/27/17 00:00 101 07/27/17 00:00 40 07/27/17 00:00 100.6 95 30 119/78 100 Mechanical Ventilator 40 07/26/17 22:54 98 22 40 07/26/17 20:54 96 27 40 07/26/17 20:00 96 07/26/17 20:00 99.9 94 20 113/76 100 Mechanical Ventilator 40 07/26/17 20:00 40 07/26/17 18:54 95 26 40 07/26/17 17:39 94 29 40 07/26/17 17:00 93 20 132/72 100 Mechanical Ventilator 40 07/26/17 16:36 91 25 40 07/26/17 16:00 92 07/26/17 16:00 99.1 92 20 125/74 100 Mechanical Ventilator 40 07/26/17 16:00 40 07/26/17 15:00 92 22 123/66 100 Mechanical Ventilator 40 07/26/17 14:00 85 21 101/63 100 Mechanical Ventilator 40 07/26/17 13:00 94 22 101/62 100 Mechanical Ventilator 40 07/26/17 12:45 93 24 40 07/26/17 12:00 99.1 97 21 115/72 100 Mechanical Ventilator 40 07/26/17 12:00 40 07/26/17 12:00 40 07/26/17 12:00 91 07/26/17 11:30 91 24 40 07/26/17 11:00 96 19 108/59 100 Mechanical Ventilator 40 07/26/17 10:00 96 24 113/69 100 Mechanical Ventilator 40 07/26/17 09:33 77 16 99 Laboratory Tests 07/27/17 04:00: White Blood Count 8.0, Red Blood Count 3.02L, Hemoglobin 9.6L, Hematocrit 29.1L , Mean Corpuscular Volume 96, Mean Corpuscular Hemoglobin 31.8H, Mean Corpuscular Hemoglobin Concent 33.0, Red Cell Distribution Width 16.1H, Platelet Count 160, Mean Platelet Volume 9.8, Neutrophils (%) (Auto) 73.8, Lymphocytes (%) (Auto) 13.3L, Monocytes (%) (Auto) 9.9, Eosinophils (%) (Auto) 1.9, Basophils (%) (Auto) 1.1, Sodium Level 145, Potassium Level 3.6, Chloride Level 113H, Carbon Dioxide Level 23, Anion Gap 9, Blood Urea Nitrogen 21H, Creatinine 1.3, Estimat Glomerular Filtration Rate > 60, Glucose Level 108H, Calcium Level 8.1L, Total Bilirubin 2.0H, Direct Bilirubin 1.7H, Aspartate Amino Transf (AST/SGOT) 40H, Alanine Aminotransferase (ALT/SGPT) 18, Alkaline Phosphatase 199H, Total Protein 5.3L, Albumin 1.6L, Globulin 3.7, Albumin/ Globulin Ratio 0.4L Height (Feet): 5 Height (Inches): 6.00 Weight (Pounds): 215 General Appearance: WD/WN, lethargic, obese Neck: supple Cardiovascular: normal rate, regular rhythm Respiratory/Chest: rhonchi - bilaterally Abdomen: normal bowel sounds, non tender, soft, no organomegaly Edema: mild edema Neurologic: unresponsive GIANNA BO Jul 27, 2017 09:35
--- NOTE | 2017-07-27 10:43 | Infectious Diseases Prog Note ---
"Assessment/Plan Assessment/Plan antibiotics : vancomycin iv, bactrim A 1. MRSA | klebsiella pneumonia 2. respiratory failure 3. thrombocytopenia resolved 4. MRSA sepsis 5. renal failure improving 6. HTN 7. leucocytosis improving P 1. continue vancomycin iv 14 more days 2. continue bactrim 1 more day 3. will follow up cultures Subjective ROS Limited/Unobtainable: Yes Allergies: Coded Allergies: CODEINE (Verified Allergy, Unknown, 11/15/16) Objective Vital Signs Last 24 Hour Vital Signs Date Time Temp Pulse Resp B/P (MAP) Pulse Ox O2 Delivery O2 Flow Rate FiO2 07/27/17 09:22 95 26 40 07/27/17 08:00 40 07/27/17 08:00 99.4 89 27 142/82 100 Mechanical Ventilator 40 07/27/17 08:00 95 07/27/17 06:30 98 23 40 07/27/17 05:37 98 22 40 07/27/17 04:00 99.7 83 24 127/79 100 Mechanical Ventilator 40 07/27/17 04:00 99 07/27/17 04:00 40 07/27/17 02:50 101 28 40 07/27/17 02:17 100.1 07/27/17 00:30 99 27 40 07/27/17 00:00 101 07/27/17 00:00 40 07/27/17 00:00 100.6 95 30 119/78 100 Mechanical Ventilator 40 07/26/17 22:54 98 22 40 07/26/17 20:54 96 27 40 07/26/17 20:00 96 07/26/17 20:00 99.9 94 20 113/76 100 Mechanical Ventilator 40 07/26/17 20:00 40 07/26/17 18:54 95 26 40 07/26/17 17:39 94 29 40 07/26/17 17:00 93 20 132/72 100 Mechanical Ventilator 40 07/26/17 16:36 91 25 40 07/26/17 16:00 92 07/26/17 16:00 99.1 92 20 125/74 100 Mechanical Ventilator 40 07/26/17 16:00 40 07/26/17 15:00 92 22 123/66 100 Mechanical Ventilator 40 07/26/17 14:00 85 21 101/63 100 Mechanical Ventilator 40 07/26/17 13:00 94 22 101/62 100 Mechanical Ventilator 40 07/26/17 12:45 93 24 40 07/26/17 12:00 99.1 97 21 115/72 100 Mechanical Ventilator 40 07/26/17 12:00 40 07/26/17 12:00 40 07/26/17 12:00 91 07/26/17 11:30 91 24 40 07/26/17 11:00 96 19 108/59 100 Mechanical Ventilator 40 Height (Feet): 5 Height (Inches): 6.00 Weight (Pounds): 215 HEENT: status post trach Respiratory/Chest: lungs clear Cardiovascular: normal rate, regular rhythm, no gallop/murmur Abdomen: soft, non tender, other - GT Extremities: other - + edema, right IJ catheter Laboratory Tests Test 07/27/17 04:00 White Blood Count 8.0 K/UL (4.8-10.8) Red Blood Count 3.02 M/UL (4.70-6.10) L Hemoglobin 9.6 G/DL (14.2-18.0) L Hematocrit 29.1 % (42.0-52.0) L Mean Corpuscular Volume 96 FL (80-99) Mean Corpuscular Hemoglobin 31.8 PG (27.0-31.0) H Mean Corpuscular Hemoglobin Concent 33.0 G/DL (32.0-36.0) Red Cell Distribution Width 16.1 % (11.6-14.8) H Platelet Count 160 K/UL (150-450) Mean Platelet Volume 9.8 FL (6.5-10.1) Neutrophils (%) (Auto) 73.8 % (45.0-75.0) Lymphocytes (%) (Auto) 13.3 % (20.0-45.0) L Monocytes (%) (Auto) 9.9 % (1.0-10.0) Eosinophils (%) (Auto) 1.9 % (0.0-3.0) Basophils (%) (Auto) 1.1 % (0.0-2.0) Sodium Level 145 MMOL/L (136-145) Potassium Level 3.6 MMOL/L (3.5-5.1) Chloride Level 113 MMOL/L (98-107) H Carbon Dioxide Level 23 MMOL/L (21-32) Anion Gap 9 mmol/L (5-15) Blood Urea Nitrogen 21 mg/dL (7-18) H Creatinine 1.3 MG/DL (0.55-1.30) Estimat Glomerular Filtration Rate > 60 mL/min (>60) Glucose Level 108 MG/DL (74-106) H Calcium Level 8.1 MG/DL (8.5-10.1) L Total Bilirubin 2.0 MG/DL (0.2-1.0) H Direct Bilirubin 1.7 MG/DL (0.0-0.3) H Aspartate Amino Transf (AST/SGOT) 40 U/L (15-37) H Alanine Aminotransferase (ALT/SGPT) 18 U/L (12-78) Alkaline Phosphatase 199 U/L (46-116) H Total Protein 5.3 G/DL (6.4-8.2) L Albumin 1.6 G/DL (3.4-5.0) L Globulin 3.7 g/dL Albumin/Globulin Ratio 0.4 (1.0-2.7) L NIKOLAY HANNA Jul 27, 2017 10:43"
[2017-07-27 12:00] VITALS: BP 137/92
--- NOTE | 2017-07-27 12:10 | General Progress Note ---
Progress Note Progress Note Surgery: s/p trach. recovering. downgraded from ICU. looks comfortable and less swollen. trach clean and functional. -trach care and management daily and prn thank you. Solomon Brito Jul 27, 2017 12:10
[2017-07-27] MEDS: Vancomycin 1.5gm/D5W 250ml 250 ML IVPB SCH (14:28)
[2017-07-27 16:00] VITALS: BP 128/76
[2017-07-27] MEDS ORDERED: Tubing IV Secondary IV ONE (16:14)
[2017-07-27] MEDS ORDERED: NS 500ML ONE (16:17)
[2017-07-27] MEDS ORDERED: Sterile Water Irrig 1000ml IRRIG ONE (16:17)
--- NOTE | 2017-07-27 16:19 | General Progress Note ---
Assessment/Plan Assessment/Plan Assessment - UGIB due to gastric ulcer - stabilized - shock- stabilized - severe thrombocytopenia - improving - lactic acidosis - improved - resp failure - s/p trach - renal failure - Cirrhotic liver - Guarded Recommendations - RBC transfusion PRN - Continue TF - supportive care - pulmonary f/u - abx - PPI Subjective Allergies: Coded Allergies: CODEINE (Verified Allergy, Unknown, 11/15/16) Subjective Above noted tolerating feeds no other events overnight Objective Last 24 Hour Vital Signs Date Time Temp Pulse Resp B/P (MAP) Pulse Ox O2 Delivery O2 Flow Rate FiO2 07/27/17 16:00 40 07/27/17 15:00 102 24 40 07/27/17 12:30 104 27 40 07/27/17 12:00 99.0 98 27 137/92 99 Mechanical Ventilator 40 07/27/17 12:00 103 07/27/17 12:00 40 07/27/17 10:30 100 25 40 07/27/17 09:22 95 26 40 07/27/17 08:00 40 07/27/17 08:00 99.4 89 27 142/82 100 Mechanical Ventilator 40 07/27/17 08:00 95 07/27/17 06:30 98 23 40 07/27/17 05:37 98 22 40 07/27/17 04:00 99.7 83 24 127/79 100 Mechanical Ventilator 40 07/27/17 04:00 99 07/27/17 04:00 40 07/27/17 02:50 101 28 40 07/27/17 02:17 100.1 07/27/17 00:30 99 27 40 07/27/17 00:00 101 07/27/17 00:00 40 07/27/17 00:00 100.6 95 30 119/78 100 Mechanical Ventilator 40 07/26/17 22:54 98 22 40 07/26/17 20:54 96 27 40 07/26/17 20:00 96 07/26/17 20:00 99.9 94 20 113/76 100 Mechanical Ventilator 40 07/26/17 20:00 40 07/26/17 18:54 95 26 40 07/26/17 17:39 94 29 40 07/26/17 17:00 93 20 132/72 100 Mechanical Ventilator 40 07/26/17 16:36 91 25 40 Intake and Output 07/27/17 07/28/17 19:00 07:00 Intake Total 605 ml Balance 605 ml Intake Free Water 100 ml Tube Feeding 385 ml Other 120 ml # Bowel Movements 1 Laboratory Tests 07/27/17 04:00: White Blood Count 8.0, Red Blood Count 3.02L, Hemoglobin 9.6L, Hematocrit 29.1L , Mean Corpuscular Volume 96, Mean Corpuscular Hemoglobin 31.8H, Mean Corpuscular Hemoglobin Concent 33.0, Red Cell Distribution Width 16.1H, Platelet Count 160, Mean Platelet Volume 9.8, Neutrophils (%) (Auto) 73.8, Lymphocytes (%) (Auto) 13.3L, Monocytes (%) (Auto) 9.9, Eosinophils (%) (Auto) 1.9, Basophils (%) (Auto) 1.1, Sodium Level 145, Potassium Level 3.6, Chloride Level 113H, Carbon Dioxide Level 23, Anion Gap 9, Blood Urea Nitrogen 21H, Creatinine 1.3, Estimat Glomerular Filtration Rate > 60, Glucose Level 108H, Calcium Level 8.1L, Total Bilirubin 2.0H, Direct Bilirubin 1.7H, Aspartate Amino Transf (AST/SGOT) 40H, Alanine Aminotransferase (ALT/SGPT) 18, Alkaline Phosphatase 199H, Total Protein 5.3L, Albumin 1.6L, Globulin 3.7, Albumin/ Globulin Ratio 0.4L Height (Feet): 5 Height (Inches): 6.00 Weight (Pounds): 215 Objective WDWN AA man NCAT supple, (+) trach Coarse BS RR abd soft, (+) GT trace edema obtunded MANNY KAUR Jul 27, 2017 16:19
[2017-07-27 20:00] VITALS: BP 126/78
[2017-07-27] MEDS: Dyna-Hex 2% Top Sol 2oz TOPIC SCH (21:00)
[2017-07-28] VITALS: BP 142/88
[2017-07-28 04:00] VITALS: BP 134/86
[2017-07-28 05:54] LABS: EOSINOPHILS % (AUTO) 2.5 % (0.0-3.0); LYMPHOCYTES % (AUTO) 15.7 % (20.0-45.0); MEAN CORPUSCULAR HEMOGLOBIN 32.1 PG (27.0-31.0); MEAN CORPUSCULAR VOLUME 97 FL (80-99); MEAN PLATELET VOLUME 9.9 FL (6.5-10.1); MONOCYTES % (AUTO) 8.8 % (1.0-10.0); NEUTROPHILS % (AUTO) 72.1 % (45.0-75.0); PLATELET COUNT 202 K/UL (150-450); RED BLOOD COUNT 3.04 M/UL (4.70-6.10); RED CELL DISTRIBUTION WIDTH 16.7 % (11.6-14.8); WHITE BLOOD COUNT 8.5 K/UL (4.8-10.8)
[2017-07-28 06:39] LABS: ALANINE AMINOTRANSFERASE 17 U/L (12-78); ALBUMIN/GLOBULIN RATIO 0.4 (1.0-2.7); ANION GAP 8 mmol/L (5-15); ASPARTATE AMINO TRANSFERASE 34 U/L (15-37); CALCIUM 8.2 MG/DL (8.5-10.1); CARBON DIOXIDE 24 MMOL/L (21-32); CHLORIDE 112 MMOL/L (98-107); CREATININE 1.2 MG/DL (0.55-1.30); GLOMERULAR FILTRATION RATE > 60 mL/min (>60); POTASSIUM 3.8 MMOL/L (3.5-5.1); SODIUM 144 MMOL/L (136-145); TOTAL PROTEIN 5.7 G/DL (6.4-8.2)
[2017-07-28 06:44] LABS: BILIRUBIN,DIRECT 1.6 MG/DL (0.0-0.3)
[2017-07-28 08:00] VITALS: BP 128/86
[2017-07-28] MEDS: levETIRAcetam 500mg/5ml Liquid GT SCH ×2 (08:42→20:31)
[2017-07-28] MEDS: carBAMazepine 200mg tab GT SCH ×2 (08:42→20:31)
[2017-07-28] MEDS: LaMICtal 150mg tab GT SCH (08:42)
[2017-07-28] MEDS: Bactrim Susp 20ml GT SCH (08:43)
[2017-07-28] MEDS: Lacri-Lube Opth Oint 3.5gm BOTH EYES SCH ×2 (08:43→17:37)
--- NOTE | 2017-07-28 09:13 | General Progress Note ---
Assessment/Plan Problem List: (1) Sepsis ICD Codes: A41.9 - Sepsis, unspecified organism SNOMED: 20574832 Qualifiers: Qualified Codes: A41.9 - Sepsis, unspecified organism (2) Altered mental status ICD Codes: R41.82 - Altered mental status, unspecified SNOMED: 593392447 Qualifiers: Qualified Codes: R41.82 - Altered mental status, unspecified (3) Anoxic encephalopathy syndrome ICD Codes: G93.1 - Anoxic brain damage, not elsewhere classified SNOMED: 734088148 (4) Septic shock ICD Codes: A41.9 - Sepsis, unspecified organism; R65.21 - Severe sepsis with septic shock SNOMED: 65457442 (5) GI (gastrointestinal bleed) ICD Codes: K92.2 - Gastrointestinal hemorrhage, unspecified SNOMED: 02536110 (6) Feeding by G-tube ICD Codes: Z93.1 - Gastrostomy status SNOMED: 813949171, 320237078 (7) Epileptic seizure, generalized ICD Codes: G40.309 - Generalized idiopathic epilepsy and epileptic syndromes, not intractable, without status epilepticus SNOMED: 54323857 (8) Acute urinary retention ICD Codes: R33.8 - Other retention of urine SNOMED: 905512017 (9) Acute on chronic respiratory failure ICD Codes: J96.20 - Acute and chronic respiratory failure, unspecified whether with hypoxia or hypercapnia SNOMED: 34874529, 55324067 Status: stable, progressing Assessment/Plan abx per id trach care vent gt feeds monitor for bleeding ?dc planning Subjective ROS Limited/Unobtainable: Yes Constitutional: Reports: malaise, weakness HEENT: Reports: no symptoms Cardiovascular: Reports: no symptoms Respiratory: Reports: no symptoms Gastrointestinal/Abdominal: Reports: difficulty swallowing Genitourinary: Reports: no symptoms Neurologic/Psychiatric: Reports: pre-existing deficit Endocrine: Reports: no symptoms Hematologic/Lymphatic: Reports: anemia Allergies: Coded Allergies: CODEINE (Verified Allergy, Unknown, 11/15/16) All Systems: reviewed and negative except above Subjective no events. on the vent. poorly responsive. no fevers. no bleeding noted. tolerating feeds. Objective Last 24 Hour Vital Signs Date Time Temp Pulse Resp B/P (MAP) Pulse Ox O2 Delivery O2 Flow Rate FiO2 07/28/17 08:37 98 18 40 07/28/17 08:00 99.0 95 20 128/86 97 Mechanical Ventilator 40 07/28/17 08:00 40 07/28/17 06:39 95 19 40 07/28/17 05:30 106 23 40 07/28/17 04:00 40 07/28/17 04:00 99.1 97 22 134/86 99 Mechanical Ventilator 40 07/28/17 03:37 108 07/28/17 03:14 99 17 40 07/28/17 01:22 99 18 40 07/28/17 00:00 99.0 96 19 142/88 100 Mechanical Ventilator 40 07/28/17 00:00 40 07/28/17 00:00 98 07/27/17 23:23 101 23 40 07/27/17 21:26 94 19 40 07/27/17 20:00 98.1 94 21 126/78 100 Mechanical Ventilator 40 07/27/17 20:00 40 07/27/17 19:42 97 07/27/17 19:04 96 21 40 07/27/17 16:46 99 23 40 07/27/17 16:00 99.0 99 21 128/76 100 Mechanical Ventilator 40 07/27/17 16:00 99 07/27/17 16:00 40 07/27/17 15:00 102 24 40 07/27/17 12:30 104 27 40 07/27/17 12:00 99.0 98 27 137/92 99 Mechanical Ventilator 40 07/27/17 12:00 103 07/27/17 12:00 40 07/27/17 10:30 100 25 40 07/27/17 09:22 95 26 40 Laboratory Tests 07/28/17 04:30: White Blood Count 8.5, Red Blood Count 3.04L, Hemoglobin 9.8L, Hematocrit 29.6L , Mean Corpuscular Volume 97, Mean Corpuscular Hemoglobin 32.1H, Mean Corpuscular Hemoglobin Concent 33.0, Red Cell Distribution Width 16.7H, Platelet Count 202, Mean Platelet Volume 9.9, Neutrophils (%) (Auto) 72.1, Lymphocytes (%) (Auto) 15.7L, Monocytes (%) (Auto) 8.8, Eosinophils (%) (Auto) 2.5, Basophils (%) (Auto) 1.0, Sodium Level 144, Potassium Level 3.8, Chloride Level 112H, Carbon Dioxide Level 24, Anion Gap 8, Blood Urea Nitrogen 20H, Creatinine 1.2, Estimat Glomerular Filtration Rate > 60, Glucose Level 108H, Calcium Level 8.2L, Total Bilirubin 1.9H, Direct Bilirubin 1.6H, Aspartate Amino Transf (AST/SGOT) 34, Alanine Aminotransferase (ALT/SGPT) 17, Alkaline Phosphatase 199H, Total Protein 5.7L, Albumin 1.7L, Globulin 4.0, Albumin/ Globulin Ratio 0.4L Height (Feet): 5 Height (Inches): 6.00 Weight (Pounds): 216 Objective General Appearance: WD/WN, lethargic, obese Neck: supple Cardiovascular: normal rate, regular rhythm Respiratory/Chest: rhonchi - bilaterally Abdomen: normal bowel sounds, non tender, soft, no organomegaly Edema: mild edema Neurologic: unresponsive GIANNA BO Jul 28, 2017 09:13
--- NOTE | 2017-07-28 11:52 | Infectious Diseases Prog Note ---
Assessment/Plan Assessment/Plan A; MRSA sepsis Pneumonia with MRSA & KPC GI bleeding, Gastric Ulcer Hypoxic respiratory failure Acute renal failure , stable Cirrhosis Thrombocytopenia P; Continue Vancomycin X 13 days discontinue Bactrim Subjective ROS Limited/Unobtainable: Yes Allergies: Coded Allergies: CODEINE (Verified Allergy, Unknown, 11/15/16) Objective Vital Signs Last 24 Hour Vital Signs Date Time Temp Pulse Resp B/P (MAP) Pulse Ox O2 Delivery O2 Flow Rate FiO2 07/28/17 10:48 101 25 40 07/28/17 08:37 98 18 40 07/28/17 08:00 99.0 95 20 128/86 97 Mechanical Ventilator 40 07/28/17 08:00 92 07/28/17 08:00 40 07/28/17 06:39 95 19 40 07/28/17 05:30 106 23 40 07/28/17 04:00 40 07/28/17 04:00 99.1 97 22 134/86 99 Mechanical Ventilator 40 07/28/17 03:37 108 07/28/17 03:14 99 17 40 07/28/17 01:22 99 18 40 07/28/17 00:00 99.0 96 19 142/88 100 Mechanical Ventilator 40 07/28/17 00:00 40 07/28/17 00:00 98 07/27/17 23:23 101 23 40 07/27/17 21:26 94 19 40 07/27/17 20:00 98.1 94 21 126/78 100 Mechanical Ventilator 40 07/27/17 20:00 40 07/27/17 19:42 97 07/27/17 19:04 96 21 40 07/27/17 16:46 99 23 40 07/27/17 16:00 99.0 99 21 128/76 100 Mechanical Ventilator 40 07/27/17 16:00 99 07/27/17 16:00 40 07/27/17 15:00 102 24 40 07/27/17 12:30 104 27 40 07/27/17 12:00 99.0 98 27 137/92 99 Mechanical Ventilator 40 07/27/17 12:00 103 07/27/17 12:00 40 Height (Feet): 5 Height (Inches): 6.00 Weight (Pounds): 216 HEENT: status post trach Respiratory/Chest: other - on ventilator, few rhonchi Cardiovascular: tachycardia Abdomen: soft, non tender, other - GT feeding Extremities: other - edema Neurologic/Psychiatric: other - opens eyes Laboratory Tests Test 07/28/17 04:30 White Blood Count 8.5 K/UL (4.8-10.8) Red Blood Count 3.04 M/UL (4.70-6.10) L Hemoglobin 9.8 G/DL (14.2-18.0) L Hematocrit 29.6 % (42.0-52.0) L Mean Corpuscular Volume 97 FL (80-99) Mean Corpuscular Hemoglobin 32.1 PG (27.0-31.0) H Mean Corpuscular Hemoglobin Concent 33.0 G/DL (32.0-36.0) Red Cell Distribution Width 16.7 % (11.6-14.8) H Platelet Count 202 K/UL (150-450) Mean Platelet Volume 9.9 FL (6.5-10.1) Neutrophils (%) (Auto) 72.1 % (45.0-75.0) Lymphocytes (%) (Auto) 15.7 % (20.0-45.0) L Monocytes (%) (Auto) 8.8 % (1.0-10.0) Eosinophils (%) (Auto) 2.5 % (0.0-3.0) Basophils (%) (Auto) 1.0 % (0.0-2.0) Sodium Level 144 MMOL/L (136-145) Potassium Level 3.8 MMOL/L (3.5-5.1) Chloride Level 112 MMOL/L (98-107) H Carbon Dioxide Level 24 MMOL/L (21-32) Anion Gap 8 mmol/L (5-15) Blood Urea Nitrogen 20 mg/dL (7-18) H Creatinine 1.2 MG/DL (0.55-1.30) Estimat Glomerular Filtration Rate > 60 mL/min (>60) Glucose Level 108 MG/DL (74-106) H Calcium Level 8.2 MG/DL (8.5-10.1) L Total Bilirubin 1.9 MG/DL (0.2-1.0) H Direct Bilirubin 1.6 MG/DL (0.0-0.3) H Aspartate Amino Transf (AST/SGOT) 34 U/L (15-37) Alanine Aminotransferase (ALT/SGPT) 17 U/L (12-78) Alkaline Phosphatase 199 U/L (46-116) H Total Protein 5.7 G/DL (6.4-8.2) L Albumin 1.7 G/DL (3.4-5.0) L Globulin 4.0 g/dL Albumin/Globulin Ratio 0.4 (1.0-2.7) L Current Medications Medications (Trade) Dose Ordered Sig/Romelia Route PRN Reason Start Time Stop Time Status Last Admin Dose Admin Acetaminophen (Tylenol) 650 mg Q4H PRN ORAL Fever/Headache/Mild Pain 07/26/17 18:00 08/13/17 17:59 07/27/17 01:47 Artificial Tears (Lacri-Lube) 1 applic BID BOTH EYES 07/26/17 18:00 08/19/17 11:14 07/28/17 08:43 Carbamazepine (TEGretol) 250 mg Q12HR GT 07/26/17 21:00 08/13/17 20:59 07/28/17 08:42 Chlorhexidine Gluconate (Natalie-Hex 2%) 1 applic DAILY@1999 TOPIC 07/26/17 20:00 08/25/17 19:59 07/27/17 21:00 Lamotrigine (LaMICtal) 300 mg DAILY GT 07/27/17 09:00 08/14/17 08:59 07/28/17 08:42 Lansoprazole (Prevacid) 30 mg Q12HR GT 07/26/17 21:00 08/14/17 12:59 07/28/17 08:42 Levetiracetam (Keppra) 1,500 mg Q12HR GT 07/26/17 21:00 08/15/17 20:59 07/28/17 08:42 Lorazepam (Ativan 2mg/ml 1ml) 1 mg Q3H PRN IV For Anxiety 07/26/17 18:00 08/02/17 17:59 Vancomycin HCl (Vanco rx to dose) 1 ea DAILY PRN MISC Per rx protocol 07/26/17 18:00 08/25/17 17:59 Vancomycin HCl/ Dextrose 250 ml @ 125 mls/hr Q24H IVPB 07/27/17 15:00 07/30/17 14:59 07/27/17 14:28 ANDRZEJ JAMES Jul 28, 2017 11:52
[2017-07-28 12:00] VITALS: BP 124/79
--- NOTE | 2017-07-28 13:46 | General Progress Note ---
Assessment/Plan Assessment/Plan Assessment - UGIB due to gastric ulcer - stabilized - shock- stabilized - severe thrombocytopenia - improving - lactic acidosis - improved - resp failure - s/p trach - renal failure - Cirrhotic liver - Guarded Recommendations - RBC transfusion PRN - Continue TF - supportive care - pulmonary f/u - abx - PPI Subjective Allergies: Coded Allergies: CODEINE (Verified Allergy, Unknown, 11/15/16) Subjective Above noted tolerating feeds no other events overnight Objective Last 24 Hour Vital Signs Date Time Temp Pulse Resp B/P (MAP) Pulse Ox O2 Delivery O2 Flow Rate FiO2 07/28/17 12:42 94 22 40 07/28/17 12:00 99.3 96 20 124/79 100 Mechanical Ventilator 40 07/28/17 12:00 40 07/28/17 10:48 101 25 40 07/28/17 08:37 98 18 40 07/28/17 08:00 99.0 95 20 128/86 97 Mechanical Ventilator 40 07/28/17 08:00 92 07/28/17 08:00 40 07/28/17 06:39 95 19 40 07/28/17 05:30 106 23 40 07/28/17 04:00 40 07/28/17 04:00 99.1 97 22 134/86 99 Mechanical Ventilator 40 07/28/17 03:37 108 07/28/17 03:14 99 17 40 07/28/17 01:22 99 18 40 07/28/17 00:00 99.0 96 19 142/88 100 Mechanical Ventilator 40 07/28/17 00:00 40 07/28/17 00:00 98 07/27/17 23:23 101 23 40 07/27/17 21:26 94 19 40 07/27/17 20:00 98.1 94 21 126/78 100 Mechanical Ventilator 40 07/27/17 20:00 40 07/27/17 19:42 97 07/27/17 19:04 96 21 40 07/27/17 16:46 99 23 40 07/27/17 16:00 99.0 99 21 128/76 100 Mechanical Ventilator 40 07/27/17 16:00 99 07/27/17 16:00 40 07/27/17 15:00 102 24 40 Intake and Output 07/28/17 07/29/17 19:00 07:00 Intake Total 305 ml Balance 305 ml Tube Feeding 275 ml Other 30 ml Laboratory Tests 07/28/17 04:30: White Blood Count 8.5, Red Blood Count 3.04L, Hemoglobin 9.8L, Hematocrit 29.6L , Mean Corpuscular Volume 97, Mean Corpuscular Hemoglobin 32.1H, Mean Corpuscular Hemoglobin Concent 33.0, Red Cell Distribution Width 16.7H, Platelet Count 202, Mean Platelet Volume 9.9, Neutrophils (%) (Auto) 72.1, Lymphocytes (%) (Auto) 15.7L, Monocytes (%) (Auto) 8.8, Eosinophils (%) (Auto) 2.5, Basophils (%) (Auto) 1.0, Sodium Level 144, Potassium Level 3.8, Chloride Level 112H, Carbon Dioxide Level 24, Anion Gap 8, Blood Urea Nitrogen 20H, Creatinine 1.2, Estimat Glomerular Filtration Rate > 60, Glucose Level 108H, Calcium Level 8.2L, Total Bilirubin 1.9H, Direct Bilirubin 1.6H, Aspartate Amino Transf (AST/SGOT) 34, Alanine Aminotransferase (ALT/SGPT) 17, Alkaline Phosphatase 199H, Total Protein 5.7L, Albumin 1.7L, Globulin 4.0, Albumin/ Globulin Ratio 0.4L Height (Feet): 5 Height (Inches): 6.00 Weight (Pounds): 216 Objective WDWN AA man NCAT supple, (+) trach Coarse BS RR abd soft, (+) GT trace edema obtunded MANNY KAUR Jul 28, 2017 13:46
[2017-07-28] MEDS: Vancomycin 1.5gm/D5W 250ml 250 ML IVPB SCH (14:39)
[2017-07-28 16:00] VITALS: BP 128/80
--- NOTE | 2017-07-28 16:33 | General Progress Note ---
Progress Note Progress Note Surgery: more alert today. eyes open and tracks. does not follow commands. trach functional and site clean. no issues from trach with good volumes on vent -continue trach care and management Solomon Brito Jul 28, 2017 16:33
[2017-07-28] MEDS ORDERED: NS 500ML ONE (17:32)
[2017-07-28] MEDS ORDERED: Tubing IV Secondary IV ONE (17:32)
[2017-07-28] MEDS: Dyna-Hex 2% Top Sol 2oz TOPIC SCH (19:50)
[2017-07-28 20:00] VITALS: BP 159/85
[2017-07-29] VITALS: BP 161/108
[2017-07-29 04:00] VITALS: BP 126/80
[2017-07-29 06:09] LABS: BASOPHILS % (AUTO) 1.2 % (0.0-2.0); EOSINOPHILS % (AUTO) 2.9 % (0.0-3.0); LYMPHOCYTES % (AUTO) 15.9 % (20.0-45.0); MEAN CORPUSCULAR HEMOGLOBIN 31.5 PG (27.0-31.0); MEAN CORPUSCULAR HGB CONC 32.2 G/DL (32.0-36.0); MEAN CORPUSCULAR VOLUME 98 FL (80-99); MEAN PLATELET VOLUME 8.3 FL (6.5-10.1); MONOCYTES % (AUTO) 10.4 % (1.0-10.0); NEUTROPHILS % (AUTO) 69.6 % (45.0-75.0); PLATELET COUNT 214 K/UL (150-450); RED CELL DISTRIBUTION WIDTH 16.6 % (11.6-14.8); WHITE BLOOD COUNT 8.2 K/UL (4.8-10.8)
[2017-07-29 06:31] LABS: ALANINE AMINOTRANSFERASE 20 U/L (12-78); ALBUMIN/GLOBULIN RATIO 0.4 (1.0-2.7); ANION GAP 6 mmol/L (5-15); ASPARTATE AMINO TRANSFERASE 30 U/L (15-37); CALCIUM 8.2 MG/DL (8.5-10.1); CARBON DIOXIDE 27 MMOL/L (21-32); CHLORIDE 110 MMOL/L (98-107); CREATININE 1.1 MG/DL (0.55-1.30); GLOMERULAR FILTRATION RATE > 60 mL/min (>60); SODIUM 143 MMOL/L (136-145); TOTAL PROTEIN 5.7 G/DL (6.4-8.2)
[2017-07-29 06:36] LABS: BILIRUBIN,DIRECT 1.5 MG/DL (0.0-0.3)
[2017-07-29 08:00] VITALS: BP 137/80
[2017-07-29] MEDS: LaMICtal 150mg tab GT SCH (08:39)
[2017-07-29] MEDS: levETIRAcetam 500mg/5ml Liquid GT SCH ×2 (08:39→20:19)
[2017-07-29] MEDS: carBAMazepine 200mg tab GT SCH ×2 (08:40→20:18)
[2017-07-29] MEDS: Lacri-Lube Opth Oint 3.5gm BOTH EYES SCH ×2 (08:41→17:07)
[2017-07-29] MEDS ORDERED: VANCOMYCIN1.25 GM/25 IVPB (09:15)
--- NOTE | 2017-07-29 09:26 | General Progress Note ---
Assessment/Plan Assessment/Plan Assessment - UGIB due to gastric ulcer - stabilized - shock- stabilized - severe thrombocytopenia - improving - lactic acidosis - improved - resp failure - s/p trach - renal failure - Cirrhotic liver - Guarded Recommendations - RBC transfusion PRN - Continue TF - supportive care - pulmonary f/u - abx - PPI Subjective Allergies: Coded Allergies: CODEINE (Verified Allergy, Unknown, 11/15/16) Subjective Above noted tolerating feeds no other events overnight Objective Last 24 Hour Vital Signs Date Time Temp Pulse Resp B/P (MAP) Pulse Ox O2 Delivery O2 Flow Rate FiO2 07/29/17 08:00 40 07/29/17 07:23 88 16 40 07/29/17 05:34 81 17 40 07/29/17 04:00 98.5 96 17 126/80 99 Mechanical Ventilator 40 07/29/17 04:00 100 07/29/17 04:00 40 07/29/17 03:16 78 23 40 07/29/17 01:20 83 26 40 07/29/17 00:00 102 07/29/17 00:00 98.1 105 21 161/108 98 Mechanical Ventilator 40 07/28/17 23:30 74 19 40 07/28/17 20:52 77 19 40 07/28/17 20:00 40 07/28/17 20:00 88 07/28/17 20:00 98.3 87 18 159/85 100 Mechanical Ventilator 40 07/28/17 19:09 93 18 40 07/28/17 16:45 78 23 40 07/28/17 16:00 93 07/28/17 16:00 40 07/28/17 16:00 99.0 91 18 128/80 100 Mechanical Ventilator 40 07/28/17 14:45 94 25 40 07/28/17 12:42 94 22 40 07/28/17 12:00 99.3 96 20 124/79 100 Mechanical Ventilator 40 07/28/17 12:00 95 07/28/17 12:00 40 07/28/17 10:48 101 25 40 Laboratory Tests 07/29/17 05:57: White Blood Count 8.2, Red Blood Count 3.10L, Hemoglobin 9.8L, Hematocrit 30.3L , Mean Corpuscular Volume 98, Mean Corpuscular Hemoglobin 31.5H, Mean Corpuscular Hemoglobin Concent 32.2, Red Cell Distribution Width 16.6H, Platelet Count 214, Mean Platelet Volume 8.3, Neutrophils (%) (Auto) 69.6, Lymphocytes (%) (Auto) 15.9L, Monocytes (%) (Auto) 10.4H, Eosinophils (%) (Auto ) 2.9, Basophils (%) (Auto) 1.2, Sodium Level 143, Potassium Level 4.0, Chloride Level 110H, Carbon Dioxide Level 27, Anion Gap 6, Blood Urea Nitrogen 20H, Creatinine 1.1, Estimat Glomerular Filtration Rate > 60, Glucose Level 93, Calcium Level 8.2L, Total Bilirubin 1.8H, Direct Bilirubin 1.5H, Aspartate Amino Transf (AST/SGOT) 30, Alanine Aminotransferase (ALT/SGPT) 20, Alkaline Phosphatase 182H, Total Protein 5.7L, Albumin 1.6L, Globulin 4.1, Albumin/ Globulin Ratio 0.4L Height (Feet): 5 Height (Inches): 6.00 Weight (Pounds): 216 Objective WDWN AA man NCAT supple, (+) trach Coarse BS RR abd soft, (+) GT trace edema obtunded MANNY KAUR Jul 29, 2017 09:26
--- NOTE | 2017-07-29 11:05 | Endoscopy Procedure Note ---
Endoscopy Procedure Note Indication for Procedure: UGIB Procedures Performed: EGD Operative Findings/Diagnosis: see dictation Specimen: yes Pt Tolerated Procedure Well: Yes Estimated Blood Loss: none Anesthesiologist: see report Anesthesia: MAC Medication Given: see anesthesia record Implant(s) used?: No 50 yrs or older w/o bx or poly: Not Applicable 10yrs. F/U not recommended: Not Applicable If not recommended, why?: MANNY KAUR Jul 29, 2017 11:05
--- NOTE | 2017-07-29 11:06 | Brief Operative Note ---
Immediate Post Operative Note Operative Note Chief Complaint: UGIB Pre-op Diagnosis: gib Procedure: EGD/Bx Post-op Diagnosis: 1. Status post gastrostomy tube in the past as expected. 2. Small healing gastric ulcer in the gastric antrum measuring approximately 8-10 millimeters with a shallow wide base, status post biopsy. 3. No active bleeding. Surgeon: dariusz Anesthesiologist: see report Anesthesia: MAC Specimen: yes Complications: none Condition: stable Fluids: see charting Estimated Blood Loss: minimal Drains: none Implant(s) used?: No MANNY KAUR Jul 29, 2017 11:06
[2017-07-29 12:00] VITALS: BP 147/104
--- NOTE | 2017-07-29 12:39 | Infectious Diseases Prog Note ---
Assessment/Plan Assessment/Plan A; MRSA sepsis Pneumonia with MRSA & KPC GI bleeding, Gastric Ulcer Hypoxic respiratory failure Acute renal failure , stable Cirrhosis Thrombocytopenia P; Continue Vancomycin X 12 days agree with discharge plan Subjective ROS Limited/Unobtainable: Yes Allergies: Coded Allergies: CODEINE (Verified Allergy, Unknown, 11/15/16) Objective Vital Signs Last 24 Hour Vital Signs Date Time Temp Pulse Resp B/P (MAP) Pulse Ox O2 Delivery O2 Flow Rate FiO2 07/29/17 10:43 87 20 40 07/29/17 09:23 83 22 40 07/29/17 08:00 40 07/29/17 08:00 98.1 87 18 137/80 99 Mechanical Ventilator 40 07/29/17 08:00 89 07/29/17 07:23 88 16 40 07/29/17 05:34 81 17 40 07/29/17 04:00 98.5 96 17 126/80 99 Mechanical Ventilator 40 07/29/17 04:00 100 07/29/17 04:00 40 07/29/17 03:16 78 23 40 07/29/17 01:20 83 26 40 07/29/17 00:00 102 07/29/17 00:00 98.1 105 21 161/108 98 Mechanical Ventilator 40 07/28/17 23:30 74 19 40 07/28/17 20:52 77 19 40 07/28/17 20:00 40 07/28/17 20:00 88 07/28/17 20:00 98.3 87 18 159/85 100 Mechanical Ventilator 40 07/28/17 19:09 93 18 40 07/28/17 16:45 78 23 40 07/28/17 16:00 93 07/28/17 16:00 40 07/28/17 16:00 99.0 91 18 128/80 100 Mechanical Ventilator 40 07/28/17 14:45 94 25 40 07/28/17 12:42 94 22 40 Height (Feet): 5 Height (Inches): 6.00 Weight (Pounds): 216 HEENT: status post trach Respiratory/Chest: other - on ventilaor, few rhonchi Cardiovascular: normal rate Abdomen: soft, non tender, other - GT feeding Extremities: other - generalized edema, right arm PICC line Neurologic/Psychiatric: unresponsiveness Laboratory Tests Test 07/29/17 05:57 White Blood Count 8.2 K/UL (4.8-10.8) Red Blood Count 3.10 M/UL (4.70-6.10) L Hemoglobin 9.8 G/DL (14.2-18.0) L Hematocrit 30.3 % (42.0-52.0) L Mean Corpuscular Volume 98 FL (80-99) Mean Corpuscular Hemoglobin 31.5 PG (27.0-31.0) H Mean Corpuscular Hemoglobin Concent 32.2 G/DL (32.0-36.0) Red Cell Distribution Width 16.6 % (11.6-14.8) H Platelet Count 214 K/UL (150-450) Mean Platelet Volume 8.3 FL (6.5-10.1) Neutrophils (%) (Auto) 69.6 % (45.0-75.0) Lymphocytes (%) (Auto) 15.9 % (20.0-45.0) L Monocytes (%) (Auto) 10.4 % (1.0-10.0) H Eosinophils (%) (Auto) 2.9 % (0.0-3.0) Basophils (%) (Auto) 1.2 % (0.0-2.0) Sodium Level 143 MMOL/L (136-145) Potassium Level 4.0 MMOL/L (3.5-5.1) Chloride Level 110 MMOL/L (98-107) H Carbon Dioxide Level 27 MMOL/L (21-32) Anion Gap 6 mmol/L (5-15) Blood Urea Nitrogen 20 mg/dL (7-18) H Creatinine 1.1 MG/DL (0.55-1.30) Estimat Glomerular Filtration Rate > 60 mL/min (>60) Glucose Level 93 MG/DL (74-106) Calcium Level 8.2 MG/DL (8.5-10.1) L Total Bilirubin 1.8 MG/DL (0.2-1.0) H Direct Bilirubin 1.5 MG/DL (0.0-0.3) H Aspartate Amino Transf (AST/SGOT) 30 U/L (15-37) Alanine Aminotransferase (ALT/SGPT) 20 U/L (12-78) Alkaline Phosphatase 182 U/L (46-116) H Total Protein 5.7 G/DL (6.4-8.2) L Albumin 1.6 G/DL (3.4-5.0) L Globulin 4.1 g/dL Albumin/Globulin Ratio 0.4 (1.0-2.7) L Current Medications Medications (Trade) Dose Ordered Sig/Romelia Route PRN Reason Start Time Stop Time Status Last Admin Dose Admin Acetaminophen (Tylenol) 650 mg Q4H PRN ORAL Fever/Headache/Mild Pain 07/26/17 18:00 08/13/17 17:59 07/27/17 01:47 Artificial Tears (Lacri-Lube) 1 applic BID BOTH EYES 07/26/17 18:00 08/19/17 11:14 07/29/17 08:41 Carbamazepine (TEGretol) 250 mg Q12HR GT 07/26/17 21:00 08/13/17 20:59 07/29/17 08:40 Chlorhexidine Gluconate (Natalie-Hex 2%) 1 applic DAILY@1999 TOPIC 07/26/17 20:00 08/25/17 19:59 07/28/17 19:50 Lamotrigine (LaMICtal) 300 mg DAILY GT 07/27/17 09:00 08/14/17 08:59 07/29/17 08:39 Lansoprazole (Prevacid) 30 mg Q12HR GT 07/26/17 21:00 08/14/17 12:59 07/29/17 08:39 Levetiracetam (Keppra) 1,500 mg Q12HR GT 07/26/17 21:00 08/15/17 20:59 07/29/17 08:39 Lorazepam (Ativan 2mg/ml 1ml) 1 mg Q3H PRN IV For Anxiety 07/26/17 18:00 08/02/17 17:59 07/29/17 01:08 Vancomycin HCl (Vanco rx to dose) 1 ea DAILY PRN MISC Per rx protocol 07/26/17 18:00 08/25/17 17:59 Vancomycin HCl/ Dextrose 250 ml @ 125 mls/hr Q24H IVPB 07/27/17 15:00 08/10/17 14:59 07/28/17 14:39 ANDRZEJ JAMES Jul 29, 2017 12:39
--- NOTE | 2017-07-29 13:03 | General Surgery Progress Note ---
General Surgery-Progress Note Subjective Procedure Performed tracheostomy Symptoms: improved Additional Comments tracking with eyes. eyes open to command. Objective Last 24 Hour Vital Signs Date Time Temp Pulse Resp B/P (MAP) Pulse Ox O2 Delivery O2 Flow Rate FiO2 07/29/17 13:00 81 20 40 07/29/17 12:00 98.2 95 20 147/104 100 Mechanical Ventilator 40 07/29/17 12:00 40 07/29/17 10:43 87 20 40 07/29/17 09:23 83 22 40 07/29/17 08:00 40 07/29/17 08:00 98.1 87 18 137/80 99 Mechanical Ventilator 40 07/29/17 08:00 89 07/29/17 07:23 88 16 40 07/29/17 05:34 81 17 40 07/29/17 04:00 98.5 96 17 126/80 99 Mechanical Ventilator 40 07/29/17 04:00 100 07/29/17 04:00 40 07/29/17 03:16 78 23 40 07/29/17 01:20 83 26 40 07/29/17 00:00 102 07/29/17 00:00 98.1 105 21 161/108 98 Mechanical Ventilator 40 07/28/17 23:30 74 19 40 07/28/17 20:52 77 19 40 07/28/17 20:00 40 07/28/17 20:00 88 07/28/17 20:00 98.3 87 18 159/85 100 Mechanical Ventilator 40 07/28/17 19:09 93 18 40 07/28/17 16:45 78 23 40 07/28/17 16:00 93 07/28/17 16:00 40 07/28/17 16:00 99.0 91 18 128/80 100 Mechanical Ventilator 40 07/28/17 14:45 94 25 40 Cardiovascular: RSR Respiratory: clear Abdomen: soft, non-tender, present bowel sounds Extremities: no tenderness Laboratory Tests Test 07/29/17 05:57 White Blood Count 8.2 K/UL (4.8-10.8) Red Blood Count 3.10 M/UL (4.70-6.10) L Hemoglobin 9.8 G/DL (14.2-18.0) L Hematocrit 30.3 % (42.0-52.0) L Mean Corpuscular Volume 98 FL (80-99) Mean Corpuscular Hemoglobin 31.5 PG (27.0-31.0) H Mean Corpuscular Hemoglobin Concent 32.2 G/DL (32.0-36.0) Red Cell Distribution Width 16.6 % (11.6-14.8) H Platelet Count 214 K/UL (150-450) Mean Platelet Volume 8.3 FL (6.5-10.1) Neutrophils (%) (Auto) 69.6 % (45.0-75.0) Lymphocytes (%) (Auto) 15.9 % (20.0-45.0) L Monocytes (%) (Auto) 10.4 % (1.0-10.0) H Eosinophils (%) (Auto) 2.9 % (0.0-3.0) Basophils (%) (Auto) 1.2 % (0.0-2.0) Sodium Level 143 MMOL/L (136-145) Potassium Level 4.0 MMOL/L (3.5-5.1) Chloride Level 110 MMOL/L (98-107) H Carbon Dioxide Level 27 MMOL/L (21-32) Anion Gap 6 mmol/L (5-15) Blood Urea Nitrogen 20 mg/dL (7-18) H Creatinine 1.1 MG/DL (0.55-1.30) Estimat Glomerular Filtration Rate > 60 mL/min (>60) Glucose Level 93 MG/DL (74-106) Calcium Level 8.2 MG/DL (8.5-10.1) L Total Bilirubin 1.8 MG/DL (0.2-1.0) H Direct Bilirubin 1.5 MG/DL (0.0-0.3) H Aspartate Amino Transf (AST/SGOT) 30 U/L (15-37) Alanine Aminotransferase (ALT/SGPT) 20 U/L (12-78) Alkaline Phosphatase 182 U/L (46-116) H Total Protein 5.7 G/DL (6.4-8.2) L Albumin 1.6 G/DL (3.4-5.0) L Globulin 4.1 g/dL Albumin/Globulin Ratio 0.4 (1.0-2.7) L Plan Problems: (1) Respiratory failure Assessment & Plan: 62M septic shock in ICU intubated on vent. difficulty weaning from vent and prolonged vent support necessary. s/p trach. slowly improving. -trach care and management okay to d/c to care facility from surgical standpoint okay to downsize trach in 1-2 weeks if necessary. okay to remove trach stay sutures in 1 week. Solomon Brito Jul 29, 2017 13:03
--- NOTE | 2017-07-29 14:08 | General Progress Note ---
Assessment/Plan Problem List: (1) Sepsis ICD Codes: A41.9 - Sepsis, unspecified organism SNOMED: 62697409 Qualifiers: Qualified Codes: A41.9 - Sepsis, unspecified organism (2) Altered mental status ICD Codes: R41.82 - Altered mental status, unspecified SNOMED: 543235310 Qualifiers: Qualified Codes: R41.82 - Altered mental status, unspecified (3) Anoxic encephalopathy syndrome ICD Codes: G93.1 - Anoxic brain damage, not elsewhere classified SNOMED: 119413400 (4) Septic shock ICD Codes: A41.9 - Sepsis, unspecified organism; R65.21 - Severe sepsis with septic shock SNOMED: 81319016 (5) GI (gastrointestinal bleed) ICD Codes: K92.2 - Gastrointestinal hemorrhage, unspecified SNOMED: 03350215 (6) Feeding by G-tube ICD Codes: Z93.1 - Gastrostomy status SNOMED: 318507411, 701767130 (7) Epileptic seizure, generalized ICD Codes: G40.309 - Generalized idiopathic epilepsy and epileptic syndromes, not intractable, without status epilepticus SNOMED: 87906508 (8) Acute urinary retention ICD Codes: R33.8 - Other retention of urine SNOMED: 618847690 (9) Acute on chronic respiratory failure ICD Codes: J96.20 - Acute and chronic respiratory failure, unspecified whether with hypoxia or hypercapnia SNOMED: 12816378, 17393298 Status: stable, progressing Assessment/Plan abx per id trach care vent gt feeds ?dc planning Subjective ROS Limited/Unobtainable: Yes Constitutional: Reports: malaise, weakness HEENT: Reports: no symptoms Cardiovascular: Reports: no symptoms Respiratory: Reports: cough Gastrointestinal/Abdominal: Reports: difficulty swallowing Genitourinary: Reports: no symptoms Neurologic/Psychiatric: Reports: no symptoms Endocrine: Reports: no symptoms Hematologic/Lymphatic: Reports: anemia Allergies: Coded Allergies: CODEINE (Verified Allergy, Unknown, 11/15/16) All Systems: reviewed and negative except above Subjective no events. on the vent. poorly responsive. no fevers. no bleeding noted. tolerating feeds. Objective Last 24 Hour Vital Signs Date Time Temp Pulse Resp B/P (MAP) Pulse Ox O2 Delivery O2 Flow Rate FiO2 07/29/17 13:00 81 20 40 07/29/17 12:00 98.2 95 20 147/104 100 Mechanical Ventilator 40 07/29/17 12:00 97 07/29/17 12:00 40 07/29/17 10:43 87 20 40 07/29/17 09:23 83 22 40 07/29/17 08:00 40 07/29/17 08:00 98.1 87 18 137/80 99 Mechanical Ventilator 40 07/29/17 08:00 89 07/29/17 07:23 88 16 40 07/29/17 05:34 81 17 40 07/29/17 04:00 98.5 96 17 126/80 99 Mechanical Ventilator 40 07/29/17 04:00 100 07/29/17 04:00 40 07/29/17 03:16 78 23 40 07/29/17 01:20 83 26 40 07/29/17 00:00 102 07/29/17 00:00 98.1 105 21 161/108 98 Mechanical Ventilator 40 07/28/17 23:30 74 19 40 07/28/17 20:52 77 19 40 07/28/17 20:00 40 07/28/17 20:00 88 07/28/17 20:00 98.3 87 18 159/85 100 Mechanical Ventilator 40 07/28/17 19:09 93 18 40 07/28/17 16:45 78 23 40 07/28/17 16:00 93 07/28/17 16:00 40 07/28/17 16:00 99.0 91 18 128/80 100 Mechanical Ventilator 40 07/28/17 14:45 94 25 40 Intake and Output 07/29/17 07/30/17 19:00 07:00 Intake Total 390 ml Balance 390 ml Tube Feeding 330 ml Other 60 ml Laboratory Tests 07/29/17 05:57: White Blood Count 8.2, Red Blood Count 3.10L, Hemoglobin 9.8L, Hematocrit 30.3L , Mean Corpuscular Volume 98, Mean Corpuscular Hemoglobin 31.5H, Mean Corpuscular Hemoglobin Concent 32.2, Red Cell Distribution Width 16.6H, Platelet Count 214, Mean Platelet Volume 8.3, Neutrophils (%) (Auto) 69.6, Lymphocytes (%) (Auto) 15.9L, Monocytes (%) (Auto) 10.4H, Eosinophils (%) (Auto ) 2.9, Basophils (%) (Auto) 1.2, Sodium Level 143, Potassium Level 4.0, Chloride Level 110H, Carbon Dioxide Level 27, Anion Gap 6, Blood Urea Nitrogen 20H, Creatinine 1.1, Estimat Glomerular Filtration Rate > 60, Glucose Level 93, Calcium Level 8.2L, Total Bilirubin 1.8H, Direct Bilirubin 1.5H, Aspartate Amino Transf (AST/SGOT) 30, Alanine Aminotransferase (ALT/SGPT) 20, Alkaline Phosphatase 182H, Total Protein 5.7L, Albumin 1.6L, Globulin 4.1, Albumin/ Globulin Ratio 0.4L Height (Feet): 5 Height (Inches): 6.00 Weight (Pounds): 216 Objective General Appearance: WD/WN, lethargic, obese Neck: supple Cardiovascular: normal rate, regular rhythm Respiratory/Chest: rhonchi - bilaterally Abdomen: normal bowel sounds, non tender, soft, no organomegaly Edema: mild edema Neurologic: unresponsive GIANNA BO Jul 29, 2017 14:08
[2017-07-29] MEDS: Vancomycin 1.5gm/D5W 250ml 250 ML IVPB SCH (14:12)
[2017-07-29 16:00] VITALS: BP 143/84
[2017-07-29 20:00] VITALS: BP 150/92
[2017-07-29] MEDS: Dyna-Hex 2% Top Sol 2oz TOPIC SCH (20:34)
[2017-07-30] VITALS: BP 146/97
[2017-07-30 04:00] VITALS: BP 134/86
[2017-07-30 08:00] VITALS: BP 134/81
--- NOTE | 2017-07-30 08:15 | General Progress Note ---
Assessment/Plan Problem List: (1) Sepsis ICD Codes: A41.9 - Sepsis, unspecified organism SNOMED: 22716428 Qualifiers: Qualified Codes: A41.9 - Sepsis, unspecified organism (2) Altered mental status ICD Codes: R41.82 - Altered mental status, unspecified SNOMED: 411036182 Qualifiers: Qualified Codes: R41.82 - Altered mental status, unspecified (3) Anoxic encephalopathy syndrome ICD Codes: G93.1 - Anoxic brain damage, not elsewhere classified SNOMED: 235515169 (4) Septic shock ICD Codes: A41.9 - Sepsis, unspecified organism; R65.21 - Severe sepsis with septic shock SNOMED: 26720768 (5) GI (gastrointestinal bleed) ICD Codes: K92.2 - Gastrointestinal hemorrhage, unspecified SNOMED: 58099631 (6) Feeding by G-tube ICD Codes: Z93.1 - Gastrostomy status SNOMED: 890018749, 181728642 (7) Epileptic seizure, generalized ICD Codes: G40.309 - Generalized idiopathic epilepsy and epileptic syndromes, not intractable, without status epilepticus SNOMED: 43279376 (8) Acute urinary retention ICD Codes: R33.8 - Other retention of urine SNOMED: 057147985 (9) Acute on chronic respiratory failure ICD Codes: J96.20 - Acute and chronic respiratory failure, unspecified whether with hypoxia or hypercapnia SNOMED: 35509681, 70922324 Status: stable, progressing Assessment/Plan abx per id trach care vent gt feeds ?dc planning await insurance approval for subacute Subjective ROS Limited/Unobtainable: Yes Constitutional: Reports: malaise, weakness HEENT: Reports: no symptoms Cardiovascular: Reports: no symptoms Respiratory: Reports: shortness of breath Gastrointestinal/Abdominal: Reports: difficulty swallowing Genitourinary: Reports: no symptoms Neurologic/Psychiatric: Reports: pre-existing deficit Endocrine: Reports: no symptoms Hematologic/Lymphatic: Reports: anemia Allergies: Coded Allergies: CODEINE (Verified Allergy, Unknown, 11/15/16) All Systems: reviewed and negative except above Subjective no events. on the vent. poorly responsive. no fevers. no bleeding noted. tolerating feeds. awaiting insurance approval for ecf Objective Last 24 Hour Vital Signs Date Time Temp Pulse Resp B/P (MAP) Pulse Ox O2 Delivery O2 Flow Rate FiO2 07/30/17 07:29 88 19 40 07/30/17 04:33 88 19 40 07/30/17 04:00 97 07/30/17 04:00 40 07/30/17 04:00 99.3 86 16 134/86 100 Mechanical Ventilator 40 07/30/17 02:09 90 19 40 07/30/17 00:25 91 19 40 07/30/17 00:00 40 07/30/17 00:00 99.1 102 18 146/97 99 Mechanical Ventilator 40 07/29/17 23:55 102 07/29/17 21:10 90 21 40 07/29/17 20:00 40 07/29/17 20:00 99.0 97 18 150/92 99 Mechanical Ventilator 40 07/29/17 19:51 97 07/29/17 19:46 92 19 40 07/29/17 17:10 92 22 Mechanical Ventilator 07/29/17 16:55 91 24 40 07/29/17 16:00 40 07/29/17 16:00 98.1 94 28 143/84 100 Mechanical Ventilator 40 07/29/17 16:00 97 07/29/17 14:40 85 18 40 07/29/17 13:00 81 20 40 07/29/17 12:00 98.2 95 20 147/104 100 Mechanical Ventilator 40 07/29/17 12:00 97 07/29/17 12:00 40 07/29/17 10:43 87 20 40 07/29/17 09:23 83 22 40 Height (Feet): 5 Height (Inches): 6.00 Weight (Pounds): 216 Objective General Appearance: WD/WN, lethargic, obese Neck: supple Cardiovascular: normal rate, regular rhythm Respiratory/Chest: rhonchi - bilaterally Abdomen: normal bowel sounds, non tender, soft, no organomegaly Edema: mild edema Neurologic: unresponsive GIANNA BO Jul 30, 2017 08:15
[2017-07-30] MEDS: carBAMazepine 200mg tab GT SCH (10:09)
[2017-07-30] MEDS: Lacri-Lube Opth Oint 3.5gm BOTH EYES SCH (10:09)
[2017-07-30] MEDS: LaMICtal 150mg tab GT SCH (10:09)
[2017-07-30] MEDS: levETIRAcetam 500mg/5ml Liquid GT SCH (10:10)
[2017-07-30 12:00] VITALS: BP 121/80
--- NOTE | 2017-07-30 12:17 | General Surgery Progress Note ---
General Surgery-Progress Note Subjective Procedure Performed tracheostomy Additional Comments stable. no acute events. eyes open to command but not following commands. Objective Last 24 Hour Vital Signs Date Time Temp Pulse Resp B/P (MAP) Pulse Ox O2 Delivery O2 Flow Rate FiO2 07/30/17 12:00 40 07/30/17 10:50 82 18 40 07/30/17 09:01 85 19 40 07/30/17 08:00 98.1 84 16 134/81 100 Mechanical Ventilator 40 07/30/17 08:00 40 07/30/17 07:29 88 19 40 07/30/17 04:33 88 19 40 07/30/17 04:00 97 07/30/17 04:00 40 07/30/17 04:00 99.3 86 16 134/86 100 Mechanical Ventilator 40 07/30/17 02:09 90 19 40 07/30/17 00:25 91 19 40 07/30/17 00:00 40 07/30/17 00:00 99.1 102 18 146/97 99 Mechanical Ventilator 40 07/29/17 23:55 102 07/29/17 21:10 90 21 40 07/29/17 20:00 40 07/29/17 20:00 99.0 97 18 150/92 99 Mechanical Ventilator 40 07/29/17 19:51 97 07/29/17 19:46 92 19 40 07/29/17 17:10 92 22 Mechanical Ventilator 07/29/17 16:55 91 24 40 07/29/17 16:00 40 07/29/17 16:00 98.1 94 28 143/84 100 Mechanical Ventilator 40 07/29/17 16:00 97 07/29/17 14:40 85 18 40 07/29/17 13:00 81 20 40 Drains: other - trach clean Cardiovascular: RSR Respiratory: clear Abdomen: soft, present bowel sounds Extremities: no tenderness Plan Problems: (1) Respiratory failure Assessment & Plan: 62M septic shock in ICU intubated on vent. difficulty weaning from vent and prolonged vent support necessary. s/p trach. slowly improving. -trach care and management okay to d/c to care facility from surgical standpoint okay to downsize trach in 1-2 weeks if necessary. okay to remove trach stay sutures in 1 week. Solomon Brito Jul 30, 2017 12:17
--- NOTE | 2017-07-30 12:28 | Infectious Diseases Prog Note ---
"Assessment/Plan Assessment/Plan antibiotics : vancomycin iv A 1. MRSA | klebsiella pneumonia s/p rx 2. respiratory failure 3. thrombocytopenia resolved 4. MRSA sepsis 5. renal failure improving 6. HTN 7. leucocytosis improving P 1. continue vancomycin iv 11 more days 2. will follow up cultures Subjective ROS Limited/Unobtainable: Yes Allergies: Coded Allergies: CODEINE (Verified Allergy, Unknown, 11/15/16) Objective Vital Signs Last 24 Hour Vital Signs Date Time Temp Pulse Resp B/P (MAP) Pulse Ox O2 Delivery O2 Flow Rate FiO2 07/30/17 12:00 40 07/30/17 10:50 82 18 40 07/30/17 09:01 85 19 40 07/30/17 08:00 98.1 84 16 134/81 100 Mechanical Ventilator 40 07/30/17 08:00 40 07/30/17 07:29 88 19 40 07/30/17 04:33 88 19 40 07/30/17 04:00 97 07/30/17 04:00 40 07/30/17 04:00 99.3 86 16 134/86 100 Mechanical Ventilator 40 07/30/17 02:09 90 19 40 07/30/17 00:25 91 19 40 07/30/17 00:00 40 07/30/17 00:00 99.1 102 18 146/97 99 Mechanical Ventilator 40 07/29/17 23:55 102 07/29/17 21:10 90 21 40 07/29/17 20:00 40 07/29/17 20:00 99.0 97 18 150/92 99 Mechanical Ventilator 40 07/29/17 19:51 97 07/29/17 19:46 92 19 40 07/29/17 17:10 92 22 Mechanical Ventilator 07/29/17 16:55 91 24 40 07/29/17 16:00 40 07/29/17 16:00 98.1 94 28 143/84 100 Mechanical Ventilator 40 07/29/17 16:00 97 07/29/17 14:40 85 18 40 07/29/17 13:00 81 20 40 Height (Feet): 5 Height (Inches): 6.00 Weight (Pounds): 216 HEENT: status post trach Respiratory/Chest: lungs clear Cardiovascular: normal rate, regular rhythm, no gallop/murmur Abdomen: soft, non tender, other - GT Extremities: other - + edema, right arm PICC NIKOLAY HANNA Jul 30, 2017 12:28"
[2017-07-30] MEDS: Vancomycin 1.5gm/D5W 250ml 250 ML IVPB SCH (16:00)
[2017-07-30] MEDS ORDERED: NS 500ML ONE (17:37)
--- NOTE | 2017-07-30 18:54 | General Progress Note ---
Assessment/Plan Assessment/Plan Assessment - UGIB due to gastric ulcer - stabilized - shock- stabilized - severe thrombocytopenia - improving - lactic acidosis - improved - resp failure - s/p trach - renal failure - Cirrhotic liver - Guarded Recommendations - RBC transfusion PRN - Continue TF - supportive care - pulmonary f/u - abx - PPI - d/c planning Subjective Allergies: Coded Allergies: CODEINE (Verified Allergy, Unknown, 11/15/16) Subjective Above noted tolerating feeds no other events overnight for d/c today Objective Last 24 Hour Vital Signs Date Time Temp Pulse Resp B/P (MAP) Pulse Ox O2 Delivery O2 Flow Rate FiO2 07/30/17 16:58 89 19 40 07/30/17 16:00 89 07/30/17 16:00 40 07/30/17 14:37 85 19 40 07/30/17 13:29 86 18 40 07/30/17 12:00 86 07/30/17 12:00 40 07/30/17 12:00 98.2 85 20 121/80 100 Mechanical Ventilator 40 07/30/17 10:50 82 18 40 07/30/17 09:01 85 19 40 07/30/17 08:07 83 07/30/17 08:00 98.1 84 16 134/81 100 Mechanical Ventilator 40 07/30/17 08:00 40 07/30/17 07:29 88 19 40 07/30/17 04:33 88 19 40 07/30/17 04:00 97 07/30/17 04:00 40 07/30/17 04:00 99.3 86 16 134/86 100 Mechanical Ventilator 40 07/30/17 02:09 90 19 40 07/30/17 00:25 91 19 40 07/30/17 00:00 40 07/30/17 00:00 99.1 102 18 146/97 99 Mechanical Ventilator 40 07/29/17 23:55 102 07/29/17 21:10 90 21 40 07/29/17 20:00 40 07/29/17 20:00 99.0 97 18 150/92 99 Mechanical Ventilator 40 07/29/17 19:51 97 07/29/17 19:46 92 19 40 Intake and Output 07/30/17 07/31/17 19:00 07:00 Output Total 775 ml Balance -775 ml Output Urine Total 775 ml Height (Feet): 5 Height (Inches): 6.00 Weight (Pounds): 216 Objective WDWN AA man NCAT supple, (+) trach Coarse BS RR abd soft, (+) GT trace edema obtunded MANNY KAUR Jul 30, 2017 18:54
--- NOTE | 2017-07-31 05:00 | Operative Note - Dictated ---
DATE OF OPERATION: 07/25/2017 NOTE: "DICTATION CANCELED" Solomon Brito M.D. DR: ANIL JOB#: [id number] CC:
--- NOTE | 2017-08-02 13:22 | Discharge Summary ---
Discharge Summary Hospital Course Date of Admission Jul 14, 2017 at 14:58 Date of Discharge Jul 30, 2017 at 17:38 Admitting Diagnosis SEPSIS HPI Francesco Rowan is a 62 year old male who was admitted on Jul 14, 2017 at 14:58 for Sepsis Hospital Course [id number] Discharge Discharge Disposition Patient was discharged to [facility] [place] Discharge Diagnoses: Seda Salazar NP Aug 02, 2017 13:22
--- NOTE | 2017-08-03 03:30 | Discharge Summary 2 SIG ---
DATE OF ADMISSION: 07/14/2017 DATE OF DISCHARGE: 07/30/2017 CONSULTANTS: 1. Gerber Shelton M.D. 2. Solomon Brito M.D. 3. Jacob Farmer M.D. 4. Juju Marques M.D. BRIEF HOSPITAL COURSE: The patient is a 62-year-old male, who was brought in from [facility] due to acute altered mental status, hypoxia, and CRE. He has history of prior tracheostomy and G-tube, improved and was able to be decannulated. He has history of prior respiratory failure, Proteus urinary tract infection, pneumonia, kidney injury, chronic anoxic encephalopathy, seizure disorder, hypertension, COPD, anemia, prior history of cocaine abuse in the past, and history of alcoholic liver cirrhosis. On evaluation at ED, workup showed chest x-ray with bilateral reticulonodular interstitial disease. The patient had elevated rectal temperature and was given IV hydration. Urine toxicology was negative. He was initially planned for admission to telemetry, however, the patient declined. He became hypotensive. He was orally intubated at ED and a central line was placed to the right internal jugular and was started on IV pressors. He was admitted for sepsis and was followed by Infectious Disease specialist. Initially, he was given amikacin, vancomycin, and ertapenem. Amikacin and vancomycin was discontinued. The patient was started on linezolid. Blood culture was showing Gram-positive cocci. The patient has been on trach and vent and had an episode of coffee-ground emesis. Xarelto was placed on hold and oral gastric tube was placed to low intermittent suction. There was a rapid rise of WBC and platelet has dropped. KUB showed no definite acute abnormality. He had an echocardiogram done that showed a technically difficult study, however, LVEF estimated to be 60% to 65%. He was planned to undergo endoscopy, however, the procedure was canceled due to thrombocytopenia. He was then given blood transfusion and platelet transfusion. He was placed on conservative management. Severe thrombocytopenia was presumed to be due to DIC. He continued to have hypotension and was placed on pressors. Family wished to continue with level of care. The patient had difficulty in weaning off the ventilator. Dr. Brito was consulted and on 07/25/2017, the patient underwent tracheostomy placement. He recovered from septic shock. He was downgraded from ICU. He was more alert. On 07/29/2017, he underwent EGD with biopsy. Findings showed small healing gastric ulcer in the gastric antrum measuring 8 to 10 mm with a shallow wide base status post biopsy. He was resumed on tube feeding and has been tolerating feeding well. Sputum culture showed growth of Klebsiella. He was given vancomycin. He was eventually transferred to [facility]. FINAL DIAGNOSES: 1. Sepsis. 2. Altered mental status/acute encephalopathy. 3. Anoxic encephalopathy syndrome. 4. Septic shock. 5. Acute gastrointestinal bleed. 6. Acute Anemia requiring transfusion. 7. Feeding via gastrostomy tube. 8. Seizure disorder. 9. Acute urinary retention. 10. Acute on chronic respiratory failure. 11. Klebsiella pneumonia. 12. Gastric ulcer, status post biopsy, result was negative for Helicobacter pylori. 13. Thrombocytopenia. 14. Lactic acidosis. 15. Cirrhotic liver. 16. Renal failure. 17. Methicillin-resistant Staphylococcus aureus sepsis. 18. Klebsiella pneumoniae carbapenemase infection. 19. Left ear unstageable pressure ulcer.(refer to wound documentation) DISPOSITION: The patient was discharged to [facility]. DISCHARGE MEDICATIONS: Continue with vancomycin for 12 more days. Nathaniel Jimenez M.D. I have been assigned to dictate discharge summary on this account and I was not involved in the patient's management. Seda Salazar N.P. DR: ALFA JOB#: [id number] CC: RICH
== END 2017-07-30 17:38 | DRG 5 ==
LOC: EDBD 13:10 → EMR 13:30 → 2E 14:58 → ICU 14:58 → UNDOADMIN 14:58 → EDBEDREQ 15:22 → 2E 16:19 → ICU 16:36 → 2E 16:36 → ICU 18:08 → 2W 07-26 18:00
PROC: 5A1955Z Respiratory Ventilation, Greater than 96 Consecutive Hours (ICD-10-PCS; principal; 2017-07-14)
PROC: 0BH17EZ Insertion of Endotracheal Airway into Trachea, Via Natural or Artificial Opening (ICD-10-PCS; 2017-07-14)
PROC: 0B110F4 Bypass Trachea to Cutaneous with Tracheostomy Device, Open Approach (ICD-10-PCS; 2017-07-25)
PROC: 02HV33Z Insertion of Infusion Device into Superior Vena Cava, Percutaneous Approach (ICD-10-PCS; 2017-07-26)
PROC: B548ZZA Ultrasonography of Superior Vena Cava, Guidance (ICD-10-PCS; 2017-07-26)
PROC: 0DB68ZX Excision of Stomach, Via Natural or Artificial Opening Endoscopic, Diagnostic (ICD-10-PCS; 2017-07-29)
DX: A41.02 Sepsis due to Methicillin resistant Staphylococcus aureus (principal); R65.21 Severe sepsis with septic shock; J15.0 Pneumonia due to Klebsiella pneumoniae; J15.212 Pneumonia due to Methicillin resistant Staphylococcus aureus; G93.1 Anoxic brain damage, not elsewhere classified; J96.21 Acute and chronic respiratory failure with hypoxia; K25.0 Acute gastric ulcer with hemorrhage; N17.9 Acute kidney failure, unspecified; D69.6 Thrombocytopenia, unspecified; Z16.24 Resistance to multiple antibiotics; G40.909 Epilepsy, unspecified, not intractable, without status epilepticus; K70.30 Alcoholic cirrhosis of liver without ascites; F10.10 Alcohol abuse, uncomplicated; N39.0 Urinary tract infection, site not specified; I10 Essential (primary) hypertension; Z93.1 Gastrostomy status; Z99.11 Dependence on respirator [ventilator] status; D64.9 Anemia, unspecified; R33.9 Retention of urine, unspecified; L89.810 Pressure ulcer of head, unstageable
CPT/HCPCS: 31500; 36415; 36569; 36600; 70450; 71010; 74000; 76700; 76937; 80048; 80053; 80150; 80156; 80202; 80299; 80307; 81003; 82105; 82140; 82248; 82550; 82553; 82803; 83605; 83690; 83735; 84100; 84478; 84484; 85007; 85025; 85610; 85730; 86850; 86900; 86901; 86920; 87040; 87070; 87081; 87086; 87181; 87205; 93005; 93306; 93970; 94002; 94003; 94150; 94640; 94664; J2370; J3430; J8499

== ENCOUNTER 2018-03-22 22:17 | Inpatient (IN) | payer MEDICARE, MEDICAID ==
[~2018-03-22] VITALS: Ht 165.1 cm; Wt 80.0 kg
[~2018-03-22 22:17] MED LIST changes: +ACETAMINOP160 MG/5 M GT; +CATAPRES0.1 MG GT; +CYCLOBENZAPRINE10 MG GT; +FLEET ENEMA133 ML RECTAL; +KEPPRA1000 MG ORAL; +KEPPRA500 M4 GT; +LAMICTAL25 MG GT; +LAMOTRIGINE300 MG GT; +OMEPRAZOLE20 M2 GT; +TEGRETOL200 MG GT; +VANCOMYCIN1.25 GM/25 IVPB; +XARELTO10 MG GT; +XARELTO20 MG GT; +dulcolax supp RC
[2018-03-22 22:30] VITALS: BP 118/80
[2018-03-22] MEDS ORDERED: Pantoprazole Inj IV ONE (22:30)
--- NOTE | 2018-03-22 22:30 | Emergency Room Report ---
History of Present Illness General Chief Complaint: General Complaint Source: Medical Record, EMS Present Illness HPI Is a 63-year-old unfortunate gentleman from [facility]. He has a history of anoxic brain injury and has tracheostomy and feeding tube. He presents with chief complaint of 2 episode of vomiting with coffee grounds/red emesis. Similar symptom in the past. History is limited in this patient because of his nonverbal status and very hard to communicate with him. No obvious pain. No fever chills. No other complaint. Allergies: Coded Allergies: CODEINE (Verified Allergy, Unknown, 11/15/16) Patient History Past Medical History: see triage record, old chart reviewed Past Surgical History: other Pertinent Family History: none Social History: Denies: smoking Immunizations: other Reviewed Nursing Documentation: PMH: Agreed; PSxH: Agreed Nursing Documentation-PMH Hx Hypertension: Yes - Unspecified embolis of vein - longterm anticoagulant use Hx Diabetes: No Hx Cancer: Yes Hx Gastrointestinal Problems: Yes - G-tube; Liver cirrhosis Hx Neurological Problems: Yes - Encephalopathy Hx Seizures: Yes Review of Systems Eye: Denies: eye pain, blurred vision ENT: Denies: ear pain, nose congestion, throat swelling Respiratory: Denies: cough, shortness of breath Cardiovascular: Denies: chest pain, palpitations Gastrointestinal: Reports: nausea, vomiting, hematemesis; Denies: abdominal pain, diarrhea Musculoskeletal: Denies: back pain, joint pain Skin: Denies: rash Neurological: Denies: headache, numbness Endocrine: Denies: increased thirst, increased urine Hematologic/Lymphatic: Denies: easy bruising All Other Systems: negative except mentioned in HPI Physical Exam Vital Signs Date Time Temp Pulse Resp B/P (MAP) Pulse Ox O2 Delivery O2 Flow Rate FiO2 03/22/18 22:21 98.1 79 20 99/56 98 Trach Collar 5.0 98.1 vitals unremarkabl Sp02 EP Interpretation: reviewed, normal General Appearance: no apparent distress, alert, Chronically Ill Head: normocephalic, atraumatic Eyes: bilateral eye PERRL, bilateral eye EOMI ENT: hearing grossly normal, normal pharynx Neck: full range of motion, supple, no meningismus Respiratory: chest non-tender, lungs clear, normal breath sounds Cardiovascular #1: regular rate, rhythm, no murmur Gastrointestinal: normal bowel sounds, non tender, no mass, no organomegaly, no bruit, non-distended Musculoskeletal: back normal Psychiatric: mood/affect normal Skin: warm/dry Medical Decision Making Diagnostic Impression: Primary Impression: GI (gastrointestinal bleed) Qualified Codes: K92.2 - Gastrointestinal hemorrhage, unspecified Additional Impressions: UTI (urinary tract infection) Qualified Codes: N30.00 - Acute cystitis without hematuria Healthcare-associated pneumonia ER Course Patient presents with hematemesis and coffee-ground emesis. He does have a history of GI bleed in the past. Hemoglobin is stable. No vomiting here. He does have evidence of infection in his urine. May also have healthcare associated pneumonia. Antibiotics given. Vital stable. Will admit. I contacted Dr. Shelton for admission. Lab Results Impression labs unremarkable Rhythm Strip Diag. Results Rhythm Strip Time: 01:02 EP Interpretation: yes Rate: 67 Rhythm: NSR, no PVC's, no ectopy Chest X-Ray Diagnostic Results Chest X-Ray Diagnostic Results : Chest X-Ray Ordered: Yes # of Views/Limited/Complete: 1 View Indication: Shortness of Breath EP Interpretation: Yes Interpretation: no consolidation, no pneumothorax, other - left pleural effusion. Left lower lobe infiltrate Impression: Other - LLL infiltrate Electronically Signed by: Migue Contreras MD Last Vital Signs Date Time Temp Pulse Resp B/P (MAP) Pulse Ox O2 Delivery O2 Flow Rate FiO2 03/22/18 22:21 98.1 79 20 99/56 98 Trach Collar 5.0 98.1 Status: improved Disposition: ADMITTED INPATIENT Condition: Serious MIGUE CONTRERAS M.D. Mar 22, 2018 22:29
[2018-03-22] MEDS ORDERED: DOCUSATE SODIU100 MG GT (22:40)
[2018-03-22 23:22] LABS: BASOPHILS % (AUTO) 0.7 % (0.0-2.0); EOSINOPHILS % (AUTO) 3.7 % (0.0-3.0); HEMATOCRIT 36.6 % (42.0-52.0); HEMOGLOBIN 12.7 G/DL (14.2-18.0); LYMPHOCYTES % (AUTO) 16.2 % (20.0-45.0); MEAN CORPUSCULAR VOLUME 97 FL (80-99); MONOCYTES % (AUTO) 5.1 % (1.0-10.0); NEUTROPHILS % (AUTO) 74.3 % (45.0-75.0); PLATELET COUNT 165 K/UL (150-450); RED BLOOD COUNT 3.78 M/UL (4.70-6.10); RED CELL DISTRIBUTION WIDTH 11.1 % (11.6-14.8); WHITE BLOOD COUNT 9.3 K/UL (4.8-10.8)
[2018-03-22 23:26] LABS: INR 1.1 (0.9-1.1)
[2018-03-22 23:30] LABS: APPEARANCE,URINE CLEAR; BILIRUBIN, URINE NEGATIVE (NEGATIVE); GLUCOSE, URINE (UA) NEGATIVE (NEGATIVE); KETONES,URINE NEGATIVE (NEGATIVE); LEUKOCYTE ESTERASE ,URINE 2+ (NEGATIVE); NITRITE,URINE NEGATIVE (NEGATIVE); PH,URINE 6.5 (4.5-8.0); PROTEIN,URINE 1+ (NEGATIVE); UROBILINOGEN,URINE NORMAL MG/DL (0.0-1.0)
[2018-03-22 23:36] LABS: ANION GAP 3 mmol/L (5-15); BLOOD UREA NITROGEN 14 mg/dL (7-18); CALCIUM 9.5 MG/DL (8.5-10.1); CARBON DIOXIDE 35 MMOL/L (21-32); CHLORIDE 98 MMOL/L (98-107); POTASSIUM 4.1 MMOL/L (3.5-5.1); SODIUM 136 MMOL/L (136-145)
[2018-03-22 23:40] LABS: ALANINE AMINOTRANSFERASE 24 U/L (12-78); ALBUMIN 3.4 G/DL (3.4-5.0); ALBUMIN/GLOBULIN RATIO 0.7 (1.0-2.7); ALKALINE PHOSPHATASE 175 U/L (46-116); ASPARTATE AMINO TRANSFERASE 26 U/L (15-37); BILIRUBIN,TOTAL 0.4 MG/DL (0.2-1.0)
--- NOTE | 2018-03-22 23:44 | Diagnostic Imaging Report ---
EXAM: XR Chest, 1 View CLINICAL HISTORY: PAIN TECHNIQUE: Frontal view of the chest. COMPARISON: 07/21/17 FINDINGS: Lungs: Mild interstitial and airspace opacities, suggest asymmetrical parenchymal edema versus pneumonia. Lungs are underinflated. Pleural space: Small left pleural effusion. No pneumothorax. Heart: Unremarkable. No cardiomegaly. Mediastinum: Unremarkable. Bones/joints: Unremarkable. Tubes, lines and devices: Tip of tracheostomy tube is about 4 cm above the anthony. IMPRESSION: 1. Mild interstitial and airspace opacities, suggest asymmetrical parenchymal edema versus pneumonia. 2. Small left pleural effusion.
[2018-03-22] MEDS ORDERED: Cefepime HCl 1 GM in D5W 55 ML IVPB ONE (23:45)
[2018-03-22 23:47] LABS: COLOR,URINE YELLOW
[2018-03-23 00:18] VITALS: BP 114/68
--- NOTE | 2018-03-23 01:42 | Diagnostic Imaging Report ---
EXAM: CT Abdomen and Pelvis Without Intravenous Contrast CLINICAL HISTORY: nonverbal has trachea tube and abdominal pain TECHNIQUE: Axial computed tomography images of the abdomen and pelvis without intravenous contrast. CTDI is 25.82 mGy and DLP is 1446.41 mGy-cm. One or more of the following dose reduction techniques were used: automated exposure control, adjustment of the mA and/or kV according to patient size, use of iterative reconstruction technique. Coronal and sagittal reconstructions are performed COMPARISON: 11/15/14 FINDINGS: Lung bases: Small to moderate amount airspace opacities in the visualized posterior lung base, likely represent atelectasis and less likely pneumonia. Pleural space: Small left pleural effusion. ABDOMEN: Liver: Unremarkable. Gallbladder and bile ducts: Small cholelithiasis. No ductal dilation. Pancreas: Unremarkable. No ductal dilation. Spleen: Unremarkable. No splenomegaly. Adrenals: Unremarkable. No mass. Kidneys and ureters: Unremarkable. No obstructing stones. No hydronephrosis. Stomach and bowel: Mild colonic diverticulosis. Moderate amount of stool in the colon. No obstruction. No mucosal thickening. PELVIS: Appendix: Normal appendix. Bladder: Urinary bladder is collapsed around a Barroso catheter balloon. No stones. Reproductive: Unremarkable as visualized. ABDOMEN and PELVIS: Intraperitoneal space: Unremarkable. No free air. No significant fluid collection. Bones/joints: Mild degenerative changes. Suspect osteopenia. No acute fracture. No dislocation. Soft tissues: Small fat-containing right inguinal hernia. Remains ossification/calcification of left vertical lathe operator internus muscle is incidentally noted. Vasculature: Moderate amount of atherosclerotic calcifications. No abdominal aortic aneurysm. Lymph nodes: Unremarkable. No enlarged lymph nodes. Tubes, lines and devices: PEG tube is in the body the stomach. IMPRESSION: 1. Small left pleural effusion. 2. Small to moderate amount of airspace opacities in the visualized posterior lung base, likely represent atelectasis and less likely pneumonia. 3. Small cholelithiasis.
[2018-03-23 01:48] VITALS: BP 116/70
[2018-03-23] MEDS ORDERED: CARBAMAZEP100 MG/5 M ORAL (03:57)
[2018-03-23] MEDS ORDERED: DULCOLAX10 MG RC (03:59)
[2018-03-23] MEDS ORDERED: CHLORHEXIDINE118 ML ORAL (03:59)
[2018-03-23] MEDS ORDERED: FLEET ENEMA133 M1 RC (04:01)
[2018-03-23] MEDS ORDERED: LEVETIRACE500 MG/51 GT (04:05)
[2018-03-23] MEDS ORDERED: LAMOTRIGINE300 MG GT (04:07)
[2018-03-23] MEDS ORDERED: MOM30 ML GT (04:09)
[2018-03-23] MEDS ORDERED: ACETAMINOP160 MG/5 M GT (04:11)
[2018-03-23] MEDS ORDERED: Albuterol/Ipratropium 3ml neb HHN PRN (07:00)
[2018-03-23] MEDS ORDERED: Acetaminophen 650mg/20.3ml GT PRN (07:00)
[2018-03-23] MEDS ORDERED: Milk of Magnesia 30ml Ud GT PRN (07:00)
[2018-03-23] MEDS ORDERED: Milk of Magnesia 30ml Ud ORAL PRN (07:00)
[2018-03-23] MEDS ORDERED: Fleet's Enema 133ml RECTAL PRN ×2 (07:00→07:15)
[2018-03-23] MEDS: D5NS 1,000 ML IV SCH ×2 (07:49→21:48)
[2018-03-23 08:10] LABS: BASOPHILS % (AUTO) 0.8 % (0.0-2.0); EOSINOPHILS % (AUTO) 4.7 % (0.0-3.0); HEMATOCRIT 38.4 % (42.0-52.0); HEMOGLOBIN 12.9 G/DL (14.2-18.0); LYMPHOCYTES % (AUTO) 17.3 % (20.0-45.0); MEAN CORPUSCULAR VOLUME 97 FL (80-99); MONOCYTES % (AUTO) 7.1 % (1.0-10.0); NEUTROPHILS % (AUTO) 70.1 % (45.0-75.0); PLATELET COUNT 159 K/UL (150-450); RED BLOOD COUNT 3.97 M/UL (4.70-6.10); WHITE BLOOD COUNT 7.5 K/UL (4.8-10.8)
[2018-03-23 09:00] VITALS: BP 98/60
[2018-03-23] MEDS: Docusate 100mg/10ml Liq GT SCH (10:17)
[2018-03-23] MEDS: carBAMazepine 200mg tab ORAL SCH ×2 (10:17→21:48)
[2018-03-23] MEDS: Pantoprazole Inj IVP SCH (10:17)
[2018-03-23] MEDS: LaMICtal 150mg tab ORAL SCH (10:17)
[2018-03-23] MEDS: levETIRAcetam 500mg/5ml Liquid GT SCH ×2 (10:18→21:48)
[2018-03-23] MEDS: Piperacillin/Tazobactam 3.375 GM in D5W 110 ML IVPB SCH ×2 (10:18→18:19)
[2018-03-23] MEDS ORDERED: Tubing IV Secondary IV ONE (10:39)
[2018-03-23] MEDS ORDERED: D5 1/2NS 1000ml IV ONE (10:39)
--- NOTE | 2018-03-23 12:03 | General Progress Note ---
Assessment/Plan Assessment/Plan GI CONSULT Dictated EGD Saturday PPI IVF Thank you Nancy Farmer Subjective Allergies: Coded Allergies: CODEINE (Verified Allergy, Unknown, 11/15/16) Objective Last 24 Hour Vital Signs Date Time Temp Pulse Resp B/P (MAP) Pulse Ox O2 Delivery O2 Flow Rate FiO2 03/23/18 09:00 97.7 60 18 98/60 (73) 100 97.7 03/23/18 08:00 T-piece 6.0 28 03/23/18 08:00 95 T-piece 6.0 28 03/23/18 07:08 Nasal Cannula 10.0 03/23/18 02:17 98.0 70 18 116/70 97 Trach Collar 5.0 98.0 03/23/18 01:48 98.0 70 18 116/70 97 Trach Collar 5.0 98.0 03/23/18 01:00 T-piece 6.0 28 03/23/18 01:00 96 T-piece 6.0 28 03/23/18 00:18 67 16 114/68 96 Trach Collar 5.0 03/22/18 22:30 98.1 66 12 118/80 98 Trach Collar 5.0 98.1 03/22/18 22:21 98.1 79 20 99/56 98 Trach Collar 5.0 98.1 Intake and Output 03/22/18 03/23/18 19:00 07:00 Intake Total 1205 ml Balance 1205 ml IV Total 1205 ml # Voids 1 Laboratory Tests 03/22/18 22:45: White Blood Count 9.3, Red Blood Count 3.78L, Hemoglobin 12.7L, Hematocrit 36.6L , Mean Corpuscular Volume 97, Mean Corpuscular Hemoglobin 33.5H, Mean Corpuscular Hemoglobin Concent 34.6, Red Cell Distribution Width 11.1L, Platelet Count 165, Mean Platelet Volume 9.5, Neutrophils (%) (Auto) 74.3, Lymphocytes (%) (Auto) 16.2L, Monocytes (%) (Auto) 5.1, Eosinophils (%) (Auto) 3.7H, Basophils (%) (Auto) 0.7, Prothrombin Time 11.1, Prothromb Time International Ratio 1.1, Activated Partial Thromboplast Time 31, Sodium Level 136, Potassium Level 4.1, Chloride Level 98, Carbon Dioxide Level 35H, Anion Gap 3L, Blood Urea Nitrogen 14, Creatinine 1.0, Estimat Glomerular Filtration Rate > 60, Glucose Level 84, Calcium Level 9.5, Total Bilirubin 0.4, Aspartate Amino Transf (AST/SGOT) 26, Alanine Aminotransferase (ALT/SGPT) 24, Alkaline Phosphatase 175H, Total Protein 8.1, Albumin 3.4, Globulin 4.7, Albumin/ Globulin Ratio 0.7L, Lipase 116 03/22/18 23:10: Urine Color Yellow, Urine Appearance Clear, Urine pH 6.5, Urine Specific [place] 1.010, Urine Protein 1+H, Urine Glucose (UA) Negative, Urine Ketones Negative, Urine Occult Blood 1+H, Urine Nitrite Negative, Urine Bilirubin Negative, Urine Urobilinogen Normal, Urine Leukocyte Esterase 2+H, Urine RBC 5- 10H, Urine WBC 15-20H, Urine Squamous Epithelial Cells None, Urine Bacteria ManyH 03/23/18 07:45: White Blood Count 7.5, Red Blood Count 3.97L, Hemoglobin 12.9L, Hematocrit 38.4L , Mean Corpuscular Volume 97, Mean Corpuscular Hemoglobin 32.4H, Mean Corpuscular Hemoglobin Concent 33.5, Red Cell Distribution Width 11.0L, Platelet Count 159, Mean Platelet Volume 8.7, Neutrophils (%) (Auto) 70.1, Lymphocytes (%) (Auto) 17.3L, Monocytes (%) (Auto) 7.1, Eosinophils (%) (Auto) 4.7H, Basophils (%) (Auto) 0.8 03/23/18 08:46: Arterial Blood pH 7.446, Arterial Blood Partial Pressure CO2 43.9, Arterial Blood Partial Pressure O2 53.6L, Arterial Blood HCO3 29.6H, Arterial Blood Oxygen Saturation 88.0L, Arterial Blood Base Excess 4.9, Aston Test Positive Height (Feet): 5 Height (Inches): 6.00 Weight (Pounds): 160 Jacob Farmer MD Mar 23, 2018 12:03
[2018-03-23 17:02] LABS: BASOPHILS % (AUTO) 1.3 % (0.0-2.0); EOSINOPHILS % (AUTO) 4.2 % (0.0-3.0); HEMATOCRIT 35.6 % (42.0-52.0); LYMPHOCYTES % (AUTO) 20.6 % (20.0-45.0); MEAN CORPUSCULAR VOLUME 98 FL (80-99); MONOCYTES % (AUTO) 7.4 % (1.0-10.0); NEUTROPHILS % (AUTO) 66.5 % (45.0-75.0); PLATELET COUNT 157 K/UL (150-450); RED BLOOD COUNT 3.63 M/UL (4.70-6.10); RED CELL DISTRIBUTION WIDTH 11.2 % (11.6-14.8); WHITE BLOOD COUNT 6.6 K/UL (4.8-10.8)
[2018-03-23 20:00] VITALS: BP 113/54
[2018-03-24] VITALS: BP 126/62
[2018-03-24] MEDS: Piperacillin/Tazobactam 3.375 GM in D5W 110 ML IVPB SCH ×3 (01:50→16:51)
[2018-03-24 04:00] VITALS: BP 112/43
[2018-03-24 07:53] LABS: BASOPHILS % (AUTO) 0.9 % (0.0-2.0); EOSINOPHILS % (AUTO) 4.8 % (0.0-3.0); HEMATOCRIT 35.9 % (42.0-52.0); HEMOGLOBIN 12.1 G/DL (14.2-18.0); LYMPHOCYTES % (AUTO) 18.5 % (20.0-45.0); MEAN CORPUSCULAR VOLUME 98 FL (80-99); MONOCYTES % (AUTO) 7.8 % (1.0-10.0); NEUTROPHILS % (AUTO) 67.9 % (45.0-75.0); PLATELET COUNT 150 K/UL (150-450); RED BLOOD COUNT 3.68 M/UL (4.70-6.10); RED CELL DISTRIBUTION WIDTH 11.3 % (11.6-14.8); WHITE BLOOD COUNT 6.1 K/UL (4.8-10.8)
[2018-03-24 08:00] VITALS: BP 109/76
--- NOTE | 2018-03-24 08:28 | General Progress Note ---
Assessment/Plan Assessment/Plan respiratory failure trach GT coffee ground emesis possible gib UTI metabolic alkalosis PLAN IV hydration EGD in am IV antibiotics check final cultures dc when stable impression, plan, and exam edited and reviewed in detail care discussed with RN Subjective ROS Limited/Unobtainable: Yes Allergies: Coded Allergies: CODEINE (Verified Allergy, Unknown, 11/15/16) Subjective care noted for EGD in am Objective Last 24 Hour Vital Signs Date Time Temp Pulse Resp B/P (MAP) Pulse Ox O2 Delivery O2 Flow Rate FiO2 03/24/18 08:00 97.7 63 20 109/76 (87) 95 97.7 03/24/18 04:00 97.9 63 20 112/43 (66) 100 97.9 03/24/18 01:00 T-piece 6.0 28 03/24/18 01:00 96 T-piece 6.0 28 03/24/18 00:00 97.9 70 18 126/62 (83) 98 97.9 03/23/18 21:00 T-piece 03/23/18 20:00 98.1 67 20 113/54 (73) 99 98.1 03/23/18 19:00 97 T-piece 6.0 28 03/23/18 19:00 T-piece 6.0 28 03/23/18 12:33 T-piece 6.0 28 03/23/18 12:33 97 T-piece 6.0 28 03/23/18 09:00 97.7 60 18 98/60 (73) 100 97.7 03/23/18 09:00 T-piece Intake and Output 03/23/18 03/24/18 19:00 07:00 Intake Total 560.0 ml 485 ml Output Total 350 ml 400 ml Balance 210.0 ml 85 ml Intake Oral 0 ml IV Total 560.0 ml 485 ml Output Urine Total 350 ml 400 ml Laboratory Tests 03/23/18 08:46: Arterial Blood pH 7.446, Arterial Blood Partial Pressure CO2 43.9, Arterial Blood Partial Pressure O2 53.6L, Arterial Blood HCO3 29.6H, Arterial Blood Oxygen Saturation 88.0L, Arterial Blood Base Excess 4.9, Aston Test Positive 03/23/18 16:10: White Blood Count 6.6, Red Blood Count 3.63L, Hemoglobin 12.0L, Hematocrit 35.6L , Mean Corpuscular Volume 98, Mean Corpuscular Hemoglobin 33.0H, Mean Corpuscular Hemoglobin Concent 33.6, Red Cell Distribution Width 11.2L, Platelet Count 157, Mean Platelet Volume 8.6, Neutrophils (%) (Auto) 66.5, Lymphocytes (%) (Auto) 20.6, Monocytes (%) (Auto) 7.4, Eosinophils (%) (Auto) 4.2H, Basophils (%) (Auto) 1.3 03/24/18 06:40: White Blood Count 6.1, Red Blood Count 3.68L, Hemoglobin 12.1L, Hematocrit 35.9L , Mean Corpuscular Volume 98, Mean Corpuscular Hemoglobin 32.8H, Mean Corpuscular Hemoglobin Concent 33.6, Red Cell Distribution Width 11.3L, Platelet Count 150, Mean Platelet Volume 8.0, Neutrophils (%) (Auto) 67.9, Lymphocytes (%) (Auto) 18.5L, Monocytes (%) (Auto) 7.8, Eosinophils (%) (Auto) 4.8H, Basophils (%) (Auto) 0.9 Height (Feet): 5 Height (Inches): 6.00 Weight (Pounds): 160 Objective WDWN NAD clear breath sounds bilaterally without rhonchi or wheeze trach [id number] without MRG NABS nontender no HSM; Gt no CC; trace edema confused Gerber Shelton MD Mar 24, 2018 08:28
[2018-03-24] MEDS: carBAMazepine 200mg tab ORAL SCH ×2 (08:52→20:07)
[2018-03-24] MEDS: LaMICtal 150mg tab ORAL SCH (08:52)
[2018-03-24] MEDS: Docusate 100mg/10ml Liq GT SCH (08:53)
[2018-03-24] MEDS: levETIRAcetam 500mg/5ml Liquid GT SCH ×2 (08:53→20:08)
[2018-03-24] MEDS: Pantoprazole Inj IVP SCH (08:53)
[2018-03-24] MEDS: D5NS 1,000 ML IV SCH ×2 (08:54→23:20)
[2018-03-24] MEDS: LORazepam Inj 2mg/ml 1ml IV PRN ×2 (11:53→23:14)
[2018-03-24 12:00] VITALS: BP 104/72
[2018-03-24 16:00] VITALS: BP 105/64
--- NOTE | 2018-03-24 17:28 | General Progress Note ---
Assessment/Plan Problem List: (1) Respiratory failure ICD Codes: J96.90 - Respiratory failure, unspecified, unspecified whether with hypoxia or hypercapnia SNOMED: 580354977 (2) Feeding by G-tube ICD Codes: Z93.1 - Gastrostomy status SNOMED: 567148754, 465584113 (3) Epileptic seizure, generalized ICD Codes: G40.309 - Generalized idiopathic epilepsy and epileptic syndromes, not intractable, without status epilepticus SNOMED: 20165853 (4) Acute urinary retention ICD Codes: R33.8 - Other retention of urine SNOMED: 858122829 (5) Acute on chronic respiratory failure ICD Codes: J96.20 - Acute and chronic respiratory failure, unspecified whether with hypoxia or hypercapnia SNOMED: 39949517, 80537639 (6) UTI (urinary tract infection) ICD Codes: N39.0 - Urinary tract infection, site not specified SNOMED: 74840419 Qualifiers: Qualified Codes: N30.00 - Acute cystitis without hematuria (7) Healthcare-associated pneumonia ICD Codes: J18.9 - Pneumonia, unspecified organism SNOMED: 379871678 (8) GI (gastrointestinal bleed) ICD Codes: K92.2 - Gastrointestinal hemorrhage, unspecified SNOMED: 11996043 Qualifiers: Qualified Codes: K92.2 - Gastrointestinal hemorrhage, unspecified Status: stable Assessment/Plan PPI rx monitor for bleeding resp and trach care PPI endoscopy tomorrow am Subjective ROS Limited/Unobtainable: Yes Constitutional: Reports: malaise, weakness HEENT: Reports: no symptoms Cardiovascular: Reports: no symptoms Respiratory: Reports: cough Gastrointestinal/Abdominal: Reports: vomiting Genitourinary: Reports: no symptoms Neurologic/Psychiatric: Reports: pre-existing deficit Endocrine: Reports: no symptoms Hematologic/Lymphatic: Reports: no symptoms Allergies: Coded Allergies: CODEINE (Verified Allergy, Unknown, 11/15/16) All Systems: reviewed and negative except above Subjective no bleeding noted. h/h stable. poorly responsive. on trach collar. no distress Objective Last 24 Hour Vital Signs Date Time Temp Pulse Resp B/P (MAP) Pulse Ox O2 Delivery O2 Flow Rate FiO2 03/24/18 16:00 98.2 62 20 105/64 (78) 100 98.2 03/24/18 14:35 94 T-piece 6.0 28 03/24/18 14:35 T-piece 6.0 28 03/24/18 12:00 98.0 56 20 104/72 (83) 100 98.0 03/24/18 08:45 T-piece 6.0 28 03/24/18 08:45 99 T-piece 6.0 28 03/24/18 08:30 T-piece 03/24/18 08:00 97.7 63 20 109/76 (87) 95 97.7 03/24/18 04:00 97.9 63 20 112/43 (66) 100 97.9 03/24/18 01:00 T-piece 6.0 28 03/24/18 01:00 96 T-piece 6.0 28 03/24/18 00:00 97.9 70 18 126/62 (83) 98 97.9 03/23/18 21:00 T-piece 03/23/18 20:00 98.1 67 20 113/54 (73) 99 98.1 03/23/18 19:00 97 T-piece 6.0 28 03/23/18 19:00 T-piece 6.0 28 Intake and Output 03/23/18 03/24/18 19:00 07:00 Intake Total 560.0 ml 485 ml Output Total 350 ml 400 ml Balance 210.0 ml 85 ml Intake Oral 0 ml IV Total 560.0 ml 485 ml Output Urine Total 350 ml 400 ml Laboratory Tests 03/24/18 06:40: White Blood Count 6.1, Red Blood Count 3.68L, Hemoglobin 12.1L, Hematocrit 35.9L , Mean Corpuscular Volume 98, Mean Corpuscular Hemoglobin 32.8H, Mean Corpuscular Hemoglobin Concent 33.6, Red Cell Distribution Width 11.3L, Platelet Count 150, Mean Platelet Volume 8.0, Neutrophils (%) (Auto) 67.9, Lymphocytes (%) (Auto) 18.5L, Monocytes (%) (Auto) 7.8, Eosinophils (%) (Auto) 4.8H, Basophils (%) (Auto) 0.9 Height (Feet): 5 Height (Inches): 6.00 Weight (Pounds): 160 General Appearance: WD/WN, lethargic Neck: supple Cardiovascular: regular rhythm Respiratory/Chest: chest wall non-tender, lungs clear, normal breath sounds, no respiratory distress Abdomen: normal bowel sounds, non tender, soft, no organomegaly Edema: no edema noted Arm (L), no edema noted Arm (R), no edema noted Leg (L), no edema noted Leg (R), no edema noted Pedal (L), no edema noted Pedal (R), no edema noted Generalized Nathaniel Jimenez MD Mar 24, 2018 17:28
[2018-03-24 20:00] VITALS: BP 114/75
--- NOTE | 2018-03-24 20:49 | General Progress Note ---
Assessment/Plan Assessment/Plan Assessment - UGIB - resp failure - trach - dysphagia - GT (deteriorated) - mild anemia Recommendations - NPO - PPI - EGD in am - GT change with EGD Subjective Allergies: Coded Allergies: CODEINE (Verified Allergy, Unknown, 11/15/16) Subjective above noted no events overnight Objective Last 24 Hour Vital Signs Date Time Temp Pulse Resp B/P (MAP) Pulse Ox O2 Delivery O2 Flow Rate FiO2 03/24/18 20:00 98.1 65 18 114/75 (88) 100 98.1 03/24/18 16:00 98.2 62 20 105/64 (78) 100 98.2 03/24/18 14:35 94 T-piece 6.0 28 03/24/18 14:35 T-piece 6.0 28 03/24/18 12:00 98.0 56 20 104/72 (83) 100 98.0 03/24/18 08:45 T-piece 6.0 28 03/24/18 08:45 99 T-piece 6.0 28 03/24/18 08:30 T-piece 03/24/18 08:00 97.7 63 20 109/76 (87) 95 97.7 03/24/18 04:00 97.9 63 20 112/43 (66) 100 97.9 03/24/18 01:00 T-piece 6.0 28 03/24/18 01:00 96 T-piece 6.0 28 03/24/18 00:00 97.9 70 18 126/62 (83) 98 97.9 03/23/18 21:00 T-piece Intake and Output 03/23/18 03/24/18 19:00 07:00 Intake Total 560.0 ml 485 ml Output Total 350 ml 400 ml Balance 210.0 ml 85 ml Intake Oral 0 ml IV Total 560.0 ml 485 ml Output Urine Total 350 ml 400 ml Laboratory Tests 03/24/18 06:40: White Blood Count 6.1, Red Blood Count 3.68L, Hemoglobin 12.1L, Hematocrit 35.9L , Mean Corpuscular Volume 98, Mean Corpuscular Hemoglobin 32.8H, Mean Corpuscular Hemoglobin Concent 33.6, Red Cell Distribution Width 11.3L, Platelet Count 150, Mean Platelet Volume 8.0, Neutrophils (%) (Auto) 67.9, Lymphocytes (%) (Auto) 18.5L, Monocytes (%) (Auto) 7.8, Eosinophils (%) (Auto) 4.8H, Basophils (%) (Auto) 0.9 Height (Feet): 5 Height (Inches): 6.00 Weight (Pounds): 160 Objective Obese AA man NCAT supple, (+) Trach CTA RRR soft ND, (+) GT no edema (L) weakness Jacob Farmer MD Mar 24, 2018 20:49
[2018-03-25] VITALS (11 sets, daily range): BP systolic 96–147; BP diastolic 59–97
[2018-03-25] MEDS: Piperacillin/Tazobactam 3.375 GM in D5W 110 ML IVPB SCH ×3 (01:41→17:52)
[2018-03-25] MEDS ORDERED: Propofol 200mg/20ml IV ONE ×2 (07:00)
[2018-03-25] MEDS ORDERED: Lidocaine 1% MPF 10mg/ml 5ml ONE (07:00)
--- NOTE | 2018-03-25 07:13 | General Progress Note ---
Assessment/Plan Assessment/Plan Assessment - UGIB - resp failure - trach - dysphagia - GT (deteriorated) - mild anemia - h/o cholelithiasis (07/28) - h/o cirrhosis on imaging (07/28) - h/o gastric ulcer - elevated alk phos - outpatient periodic N/V Recommendations - NPO - PPI - EGD with GT change today - MRCP after above - check AFP Post Procedure Addendum - GERD with reflux related linear ulcers - lower esophageal 2 cm tongue, r/o Ramírez's, Biopsied - no active bleeding - GT changed - Rec: BID PPI, reflux precautions Subjective Allergies: Coded Allergies: CODEINE (Verified Allergy, Unknown, 11/15/16) Subjective above noted no events overnight d/w daughter re EGD - consent obtained daughter concerned re intermittent vomiting reported as outpatient Objective Last 24 Hour Vital Signs Date Time Temp Pulse Resp B/P (MAP) Pulse Ox O2 Delivery O2 Flow Rate FiO2 03/25/18 06:42 T-piece 6.0 28 03/25/18 06:41 98 T-piece 6.0 03/25/18 04:00 97.0 68 20 147/97 (114) 100 97.0 03/25/18 01:30 99 T-piece 6.0 03/25/18 01:30 T-piece 6.0 28 03/25/18 00:00 97.7 61 20 96/59 (71) 99 97.7 03/24/18 21:00 T-piece 03/24/18 20:32 98 T-piece 6.0 03/24/18 20:32 T-piece 6.0 03/24/18 20:00 98.1 65 18 114/75 (88) 100 98.1 03/24/18 16:00 98.2 62 20 105/64 (78) 100 98.2 03/24/18 14:35 94 T-piece 6.0 28 03/24/18 14:35 T-piece 6.0 03/24/18 12:00 98.0 56 20 104/72 (83) 100 98.0 03/24/18 08:45 T-piece 6.0 28 03/24/18 08:45 99 T-piece 6.0 03/24/18 08:30 T-piece 03/24/18 08:00 97.7 63 20 109/76 (87) 95 97.7 Intake and Output 03/24/18 03/25/18 19:00 07:00 Intake Total 1112.5 ml 880.0 ml Output Total 750 ml 900 ml Balance 362.5 ml -20.0 ml IV Total 1112.5 ml 880.0 ml Output Urine Total 750 ml 900 ml # Bowel Movements 1 Height (Feet): 5 Height (Inches): 5.00 Weight (Pounds): 160 Objective Obese AA man NCAT supple, (+) Trach CTA RRR soft ND, (+) GT no edema (L) weakness Jacob Farmer MD Mar 25, 2018 07:13
--- NOTE | 2018-03-25 07:13 | Pre-Procedure Note/Attestation ---
Pre-Procedure Note/Attestation Complete Prior to Procedure Planned Procedure: not applicable Procedure Narrative: egd Indications for Procedure Pre-Operative Diagnosis: UGIB Attestation I attest that I discussed the nature of the procedure; its benefits; risks and complications; and alternatives (and the risks and benefits of such alternatives ), prior to the procedure, with the patient (or the patient's legal inside technical sales representative). I attest that, if there was a reasonable possibility of needing a blood transfusion, the patient (or the patient's legal inside technical sales representative) was given the [facility] standardized written summary, pursuant to the Madhu Poynor Blood Safety Act ([place] Health and Safety Code # 1645, as amended). I attest that I re-evaluated the patient just prior to the surgery and that there has been no change in the patient's H&P, except as documented below: Jacob Farmer MD Mar 25, 2018 07:13
[2018-03-25] MEDS ORDERED: NS 500ML IVPB ONE (07:40)
--- NOTE | 2018-03-25 08:07 | Anethesia Preoperative Eval ---
Anesthesia Pre-op PMH/ROS General Date of Evaluation: Mar 25, 2018 Time of Evaluation: 06:55 Anesthesiologist: ASA Score: ASA 4 Mallampati Score Class I : Soft palate, uvula, fauces, pillars visible Class II: Soft palate, uvula, fauces visible Class III: Soft palate, base of uvula visible Class IV: Only hard plate visible Mallampati Classification: Class III Surgeon: dariusz Diagnosis: gi bleed Surgical Procedure: egd Anesthesia History: difficult airway Allergies: Coded Allergies: CODEINE (Verified Allergy, Unknown, 11/15/16) Medications: see eMAR Past Medical History Cardiovascular: Reports: HTN Pulmonary: Reports: other - tracheostomy Neurologic/Psychiatric: Reports: dementia, CVA, other - anoxic encephalopathy, status epileptica Hematology/Immune: Reports: anemia, DVT, bleeding disorder Anesthesia Pre-op Phys. Exam Physician Exam Last Vital Signs Date Time Temp Pulse Resp B/P (MAP) Pulse Ox O2 Delivery O2 Flow Rate FiO2 03/25/18 06:42 T-piece 6.0 28 03/25/18 06:41 98 03/25/18 04:00 97.0 68 20 147/97 (114) 97.0 Constitutional: other Cardiovascular: other Respiratory: other Gastrointestinal: other Airway Exam Mallampati Score: Class III MO: full ROM: full Teeth: missing Anesthesia Pre-op A/P Risk Assessment & Plan Assessment: asa 4 Plan: mac Pre-Antibiotics Drug: none Jyothi Morales M.D. Mar 25, 2018 08:07
--- NOTE | 2018-03-25 08:27 | Immediate Post-Op Evaluation ---
Immediate Post-Op Evalulation Immediate Post-Op Evalulation Procedure: egd Date of Evaluation: Mar 25, 2018 Time of Evaluation: 08:15 IV Fluids: ns 600ml Blood Products: 0 Estimated Blood Loss: 0 Urinary Output: 0 Blood Pressure Systolic: 119 Blood Pressure Diastolic: 70 Pulse Rate: 57 Respiratory Rate: 20 O2 Sat by Pulse Oximetry: 99 Temperature (Fahrenheit): 97 Pain Score (1-10): 0 Nausea: No Vomiting: No Patient Status: awake, patent, none Hydration Status: adequate Drug: none Jyothi Morales M.D. Mar 25, 2018 08:27
--- NOTE | 2018-03-25 08:36 | 48 Hour Post Anesthesia Eval ---
Post Anesthesia Evaluation Procedure: egd Date of Evaluation: Mar 25, 2018 Time of Evaluation: 08:30 Blood Pressure Systolic: 121 0: 84 Pulse Rate: 52 Respiratory Rate: 12 Temperature (Fahrenheit): 97 O2 Sat by Pulse Oximetry: 100 Airway: patent Nausea: No Vomiting: No Pain Intensity: 0 Hydration Status: adequate Mental Status/LOC: patient returned to baseline Post-Anesthesia Complications: none Follow-up care needed: N/A Jyothi Morales M.D. Mar 25, 2018 08:36
[2018-03-25] MEDS: Pantoprazole Inj IVP SCH (09:00)
[2018-03-25] MEDS: levETIRAcetam 500mg/5ml Liquid GT SCH ×2 (10:05→21:05)
[2018-03-25] MEDS: Docusate 100mg/10ml Liq GT SCH (10:05)
[2018-03-25] MEDS: carBAMazepine 200mg tab ORAL SCH ×2 (10:05→21:05)
[2018-03-25] MEDS: LaMICtal 150mg tab ORAL SCH (10:05)
--- NOTE | 2018-03-25 10:49 | History and Physical Report ---
DATE OF ADMISSION: 03/22/2018 CHIEF COMPLAINT: GI bleed. HISTORY OF PRESENT ILLNESS: The patient is an unfortunate 63-year-old male. He has a history of anoxic encephalopathy, chronic respiratory failure, and COPD. He has a history of peptic ulcer disease, recurrent urinary tract infection, pneumonia, hypertension, and seizure disorder. He was transferred from a halfway facility with complaints of coffee-ground emesis. According to staff, the patient had multiple episodes of coffee-ground emesis while at the [facility] reports of any melena or bright red blood per rectum. On evaluation in the emergency room, the patient's hemoglobin was 12. Coags are normal. He was started on IV proton pump inhibitor and is now admitted to monitored bed. He is poorly responsive at baseline. PAST MEDICAL HISTORY: As above. PAST SURGICAL HISTORY: Includes a history of trach. CURRENT MEDICATIONS: Reconciled and reviewed. ALLERGIES: Include codeine. FAMILY HISTORY: Noncontributory. SOCIAL HISTORY: There is no known history of tobacco or ethanol. There is a history of cocaine use. REVIEW OF SYSTEMS: Unobtainable as the patient is minimally verbal. PHYSICAL EXAMINATION: VITAL SIGNS: Temperature 98, pulse 70, respirations 18, and blood pressure 116/70. GENERAL: The patient is chronically ill-appearing male, in no apparent distress. He has a trach that is midline and clean without any discharge. NECK: Otherwise supple. HEART: Regular rate and rhythm. LUNGS: Clear. ABDOMEN: Soft, nontender, nondistended. EXTREMITIES: Without clubbing, cyanosis, or edema. LABORATORY DATA: UA showed 15 to 20 wbc's. White count 9, hemoglobin 12, hematocrit 36, and platelets of 165. Coags normal. Sodium 136, potassium 4.1, chloride 98, bicarb 35, BUN 14, and creatinine was 1. ASSESSMENT: This is a pleasant, but unfortunate male with a history of encephalopathy, chronic respiratory failure, history of hypoxemia, recurrent pneumonia, UTI, prior history of GI bleed, admitted with complaints of coffee-ground emesis likely secondary to recurrent GI bleed. PLAN: IV proton pump inhibitors. IV fluids. NPO. GI consultation. We will check a blood gas. Empiric antibiotic therapy for urinary tract infection. The patient's status is currently guarded. Nathaniel Jimenez M.D. DR: HEIDI JOB#: [id number] CC:
--- NOTE | 2018-03-25 10:51 | Consultation ---
DATE OF CONSULTATION: 03/23/2018 GASTROENTEROLOGY CONSULTATION REPORT CHIEF COMPLAINT: I was asked to see this patient by Dr. Gerber Shelton and Dr. Nathaniel Jimenez for evaluation of gastrointestinal bleeding. HISTORY OF PRESENT ILLNESS: The patient is a pleasant 63-year-old, unfortunate man with history of anoxic brain injury and tracheostomy, who comes in for one-day history of coffee-ground emesis. He denies any abdominal pain or melena. He has tracheostomy and gastrostomy, but is able to understand and respond to questions. The indications, risks, alternatives, and possible complications of endoscopy were explained to the patient and he agreed to proceed. PAST MEDICAL HISTORY: History of anoxic brain injury, status post tracheostomy, status post gastrostomy, left-sided paresis. SOCIAL HISTORY: The patient is a long-term [facility]. He does have a past history of anticoagulation use. FAMILY HISTORY: Noncontributory. REVIEW OF SYSTEMS: Otherwise negative. PHYSICAL EXAMINATION: GENERAL: A debilitated man, seen in his room. HEENT: Normocephalic and atraumatic. Sclerae anicteric. Oropharynx is clear. Dentition is poor. NECK: Showed tracheostomy. CHEST: Revealed coarse breath sounds. CARDIOVASCULAR: Revealed regular rate. ABDOMEN: Soft. Good bowel sounds. Gastrostomy tube was in good position, but it was somewhat old. EXTREMITIES: Revealed some left-sided paresis. LABORATORY DATA: Noted. ASSESSMENT: This patient presents with upper gastrointestinal bleeding, which appears to be of minor degree since he has not had a significant vital signs change or change in hematocrit. Differential diagnosis would usually include the most likely gastroesophageal reflux disease with reflux related ulcerations. differential will be peptic ulcer disease or upper gastrointestinal masses or lesions. The patient will be undergoing endoscopy in the next day or two evaluate the source. In the meantime, he should be placed on proton pump inhibitor. RECOMMENDATIONS: Per above discussion and per orders written in the chart. Thank you for asking me to participate in the care of this patient. Jacob Farmer M.D. DR: Khanh JOB#: [id number] CC:
[2018-03-25] MEDS: D5NS 1,000 ML IV SCH ×2 (12:20→17:52)
--- NOTE | 2018-03-25 15:13 | Diagnostic Imaging Report ---
Indication: Abdominal pain, cholelithiasis demonstrated on recent CT scan Technique: Coronal and axial single shot fast spin-echo breath-hold, axial T2 FRFSE, 2-D thick slab MRCP, AXIAL 2-D FIESTA fat saturated, axial 3-D dual echo breath-hold, water weighted axial LAVA FLEX, revealed 3-D MRCP images were obtained of the abdomen. MIP reconstructions were generated of the bile ducts Comparison: Reference made to 03/23/2018 CT scan Findings: The gallbladder contains gallstones. No biliary ductal dilatation. No evidence of intraductal filling defects. No gallbladder wall thickening nor pericholecystic fluid or edema. Normal caliber pancreatic duct. The liver, pancreas, spleen, adrenals, kidneys are unremarkable. There is a gastrostomy tube in place. The bladder contains a Barroso catheter. Gastrostomy tube is seen within the stomach. This appears to be in good position. Impression: Cholelithiasis. Negative for evidence of dilated ducts or choledocholithiasis Barroso catheter and gastrostomy incidentally noted
--- NOTE | 2018-03-25 15:33 | Cardiology Report ---
APPROVED REPORT EKG Measurement Heart [id number] KS 180P47 [id number] Sinus bradycardia Low voltage QRS Borderline ECG
--- NOTE | 2018-03-25 15:57 | General Progress Note ---
Assessment/Plan Problem List: (1) Respiratory failure ICD Codes: J96.90 - Respiratory failure, unspecified, unspecified whether with hypoxia or hypercapnia SNOMED: 635481772 (2) Feeding by G-tube ICD Codes: Z93.1 - Gastrostomy status SNOMED: 889149840, 804983552 (3) Epileptic seizure, generalized ICD Codes: G40.309 - Generalized idiopathic epilepsy and epileptic syndromes, not intractable, without status epilepticus SNOMED: 89964839 (4) Acute urinary retention ICD Codes: R33.8 - Other retention of urine SNOMED: 753687761 (5) Acute on chronic respiratory failure ICD Codes: J96.20 - Acute and chronic respiratory failure, unspecified whether with hypoxia or hypercapnia SNOMED: 02897267, 49451854 (6) UTI (urinary tract infection) ICD Codes: N39.0 - Urinary tract infection, site not specified SNOMED: 86860085 Qualifiers: Qualified Codes: N30.00 - Acute cystitis without hematuria (7) Healthcare-associated pneumonia ICD Codes: J18.9 - Pneumonia, unspecified organism SNOMED: 388041211 (8) GI (gastrointestinal bleed) ICD Codes: K92.2 - Gastrointestinal hemorrhage, unspecified SNOMED: 35294113 Qualifiers: Qualified Codes: K92.2 - Gastrointestinal hemorrhage, unspecified Status: stable Assessment/Plan PPI rx monitor for bleeding resp and trach care PPI endoscopy today monitor HR Subjective ROS Limited/Unobtainable: Yes Constitutional: Reports: weakness HEENT: Reports: no symptoms Cardiovascular: Reports: no symptoms Respiratory: Reports: no symptoms Gastrointestinal/Abdominal: Reports: vomiting Genitourinary: Reports: no symptoms Neurologic/Psychiatric: Reports: pre-existing deficit Endocrine: Reports: no symptoms Hematologic/Lymphatic: Reports: no symptoms Allergies: Coded Allergies: CODEINE (Verified Allergy, Unknown, 11/15/16) All Systems: reviewed and negative except above Subjective no bleeding noted. h/h stable. poorly responsive. on trach collar. no distress npo for endoscopy today Objective Last 24 Hour Vital Signs Date Time Temp Pulse Resp B/P (MAP) Pulse Ox O2 Delivery O2 Flow Rate FiO2 03/25/18 12:00 97.3 69 19 104/71 (82) 97 97.3 03/25/18 09:12 98.2 53 20 116/78 (91) 100 98.2 03/25/18 09:00 T-piece 03/25/18 08:43 97 48 20 105/80 99 Trach Collar 30 97.0 03/25/18 08:36 206.6 52 12 100 03/25/18 08:35 48 20 121/84 99 Trach Collar 30 03/25/18 08:27 206.6 57 20 99 03/25/18 08:25 57 20 114/81 99 Trach Collar 30 03/25/18 08:20 57 20 129/80 99 Trach Collar 30 03/25/18 08:15 97 57 20 119/70 99 Trach Collar 30 97.0 03/25/18 06:42 T-piece 6.0 28 03/25/18 06:41 98 T-piece 6.0 28 03/25/18 04:00 97.0 68 20 147/97 (114) 100 97.0 03/25/18 01:30 99 T-piece 6.0 28 03/25/18 01:30 T-piece 6.0 28 03/25/18 00:00 97.7 61 20 96/59 (71) 99 97.7 03/24/18 21:00 T-piece 03/24/18 20:32 98 T-piece 6.0 28 03/24/18 20:32 T-piece 6.0 28 03/24/18 20:00 98.1 65 18 114/75 (88) 100 98.1 03/24/18 16:00 98.2 62 20 105/64 (78) 100 98.2 Intake and Output 03/24/18 03/25/18 19:00 07:00 Intake Total 1112.5 ml 955.0 ml Output Total 750 ml 900 ml Balance 362.5 ml 55.0 ml IV Total 1112.5 ml 955.0 ml Output Urine Total 750 ml 900 ml # Bowel Movements 1 Height (Feet): 5 Height (Inches): 5.00 Weight (Pounds): 160 General Appearance: WD/WN, alert, confused Neck: supple Cardiovascular: normal peripheral pulses, normal rate, regular rhythm Respiratory/Chest: chest wall non-tender, lungs clear, normal breath sounds Abdomen: normal bowel sounds, non tender, soft, no organomegaly Lymphatic: normal anterior cervical (L), normal anterior cervical (R), normal posterior cervical (L), normal posterior cervical (R), normal submandibular (L) , normal submandibular (R), normal supraclavicular (L), normal supraclavicular ( R), normal axillary (L), normal axillary (R), normal inguinal (L), normal inguinal (R), normal other Nathaniel Jimenez MD Mar 25, 2018 15:57
--- NOTE | 2018-03-25 19:06 | General Progress Note ---
Assessment/Plan Assessment/Plan respiratory failure trach GT coffee ground emesis possible gib UTI metabolic alkalosis PLAN IV hydration EGD start feeds IV antibiotics check final cultures dc when stable hopefully in am impression, plan, and exam edited and reviewed in detail care discussed with RN Subjective Allergies: Coded Allergies: CODEINE (Verified Allergy, Unknown, 11/15/16) Subjective care noted underwent EGD Objective Last 24 Hour Vital Signs Date Time Temp Pulse Resp B/P (MAP) Pulse Ox O2 Delivery O2 Flow Rate FiO2 03/25/18 16:00 97.6 53 18 113/72 (86) 95 97.6 03/25/18 13:56 T-piece 6.0 28 03/25/18 13:55 98 T-piece 6.0 28 03/25/18 12:00 97.3 69 19 104/71 (82) 97 97.3 03/25/18 09:12 98.2 53 20 116/78 (91) 100 98.2 03/25/18 09:00 T-piece 03/25/18 08:43 97 48 20 105/80 99 Trach Collar 30 97.0 03/25/18 08:36 206.6 52 12 100 03/25/18 08:35 48 20 121/84 99 Trach Collar 30 03/25/18 08:27 206.6 57 20 99 03/25/18 08:25 57 20 114/81 99 Trach Collar 30 03/25/18 08:20 57 20 129/80 99 Trach Collar 30 03/25/18 08:15 97 57 20 119/70 99 Trach Collar 30 97.0 03/25/18 06:42 T-piece 6.0 03/25/18 06:41 98 T-piece 6.0 28 03/25/18 04:00 97.0 68 20 147/97 (114) 100 97.0 03/25/18 01:30 99 T-piece 6.0 28 03/25/18 01:30 T-piece 6.0 28 03/25/18 00:00 97.7 61 20 96/59 (71) 99 97.7 03/24/18 21:00 T-piece 03/24/18 20:32 98 T-piece 6.0 28 03/24/18 20:32 T-piece 6.0 28 03/24/18 20:00 98.1 65 18 114/75 (88) 100 98.1 Intake and Output 03/24/18 03/25/18 19:00 07:00 Intake Total 1112.5 ml 955.0 ml Output Total 750 ml 900 ml Balance 362.5 ml 55.0 ml IV Total 1112.5 ml 955.0 ml Output Urine Total 750 ml 900 ml # Bowel Movements 1 Height (Feet): 5 Height (Inches): 5.00 Weight (Pounds): 160 Objective WDWN NAD, awake and slightly agitated clear breath sounds bilaterally without rhonchi or wheeze trach [id number] without MRG NABS nontender no HSM; Gt no CC; trace edema confused Gerber Shelton MD Mar 25, 2018 19:06
[2018-03-25] MEDS ORDERED: Pantoprazole Inj IVP SCH (21:00)
[2018-03-26] VITALS: BP 103/68
[2018-03-26] MEDS: Piperacillin/Tazobactam 3.375 GM in D5W 110 ML IVPB SCH ×2 (02:32→10:11)
--- NOTE | 2018-03-26 02:32 | Procedure Note ---
DATE OF PROCEDURE: 03/25/2018 PROCEDURE: Upper gastrointestinal endoscopy with biopsy as well as gastrostomy tube change. SURGEON: Jacob Farmer M.D. ANESTHESIA: Please see the separate anesthesiologist notes for details. PRE-ENDOSCOPIC DIAGNOSIS: Upper gastrointestinal bleeding. POST-ENDOSCOPIC DIAGNOSES: 1. Gastroesophageal reflux disease with reflux related erosions and linear ulcerations. 2. A colon mucosa, possibly representing status post biopsy. 3. Status post gastrostomy tube exchange. PROCEDURE NOTE: The procedure, its risks, indications, alternatives, and possible complications were explained to the patient's family and informed consent was obtained. The patient was then sedated in the supine position. A diagnostic upper endoscope was introduced through the oropharynx and advanced to the duodenum. The above findings were identified. Biopsies of the tongue to lower esophagus were sent to pathology for review. There was no active bleeding, but some linear shallow ulcerations were seen in the esophagus, which was the source of the gastrointestinal bleeding. The gastrostomy tube was exchanged with a 20-Danish balloon catheter and the patient left to recovery in good condition. COMPLICATIONS: None. RECOMMENDATIONS: 1. Increase proton pump inhibitors to twice a day. 2. Reflux precautions. 3. Resume tube feeding. 4. Follow up biopsy results. Jacob Farmer M.D. DR: AMANDO JOB#: [id number] CC:
[2018-03-26 04:00] VITALS: BP 114/68
[2018-03-26 08:00] VITALS: BP 149/70
--- NOTE | 2018-03-26 08:28 | General Progress Note ---
Assessment/Plan Problem List: (1) Respiratory failure ICD Codes: J96.90 - Respiratory failure, unspecified, unspecified whether with hypoxia or hypercapnia SNOMED: 752172717 (2) Feeding by G-tube ICD Codes: Z93.1 - Gastrostomy status SNOMED: 571152052, 007543946 (3) Epileptic seizure, generalized ICD Codes: G40.309 - Generalized idiopathic epilepsy and epileptic syndromes, not intractable, without status epilepticus SNOMED: 99886333 (4) Acute urinary retention ICD Codes: R33.8 - Other retention of urine SNOMED: 308566178 (5) Acute on chronic respiratory failure ICD Codes: J96.20 - Acute and chronic respiratory failure, unspecified whether with hypoxia or hypercapnia SNOMED: 77183715, 37356124 (6) UTI (urinary tract infection) ICD Codes: N39.0 - Urinary tract infection, site not specified SNOMED: 59295251 Qualifiers: Qualified Codes: N30.00 - Acute cystitis without hematuria (7) Healthcare-associated pneumonia ICD Codes: J18.9 - Pneumonia, unspecified organism SNOMED: 994678433 (8) GI (gastrointestinal bleed) ICD Codes: K92.2 - Gastrointestinal hemorrhage, unspecified SNOMED: 98804555 Qualifiers: Qualified Codes: K92.2 - Gastrointestinal hemorrhage, unspecified Status: stable Assessment/Plan PPI rx monitor for bleeding resp and trach care follow up endoscopy results abx dc planning Subjective ROS Limited/Unobtainable: Yes Constitutional: Reports: malaise, weakness HEENT: Reports: no symptoms Cardiovascular: Reports: no symptoms Respiratory: Reports: cough Gastrointestinal/Abdominal: Reports: difficulty swallowing Genitourinary: Reports: no symptoms Neurologic/Psychiatric: Reports: pre-existing deficit Endocrine: Reports: no symptoms Hematologic/Lymphatic: Reports: no symptoms Allergies: Coded Allergies: CODEINE (Verified Allergy, Unknown, 11/15/16) All Systems: reviewed and negative except above Subjective no bleeding noted. h/h stable. more alert. on trach collar. no distress ucx with ecoli Objective Last 24 Hour Vital Signs Date Time Temp Pulse Resp B/P (MAP) Pulse Ox O2 Delivery O2 Flow Rate FiO2 03/26/18 04:00 98.0 58 20 114/68 (83) 100 98.0 03/26/18 01:12 T-piece 6.0 28 03/26/18 01:12 99 T-piece 6.0 28 03/26/18 00:00 97.5 76 20 103/68 (80) 100 97.5 03/25/18 21:00 T-piece 03/25/18 20:00 98.5 64 20 124/85 (98) 100 98.5 03/25/18 18:50 T-piece 6.0 28 03/25/18 18:50 98 T-piece 6.0 28 03/25/18 16:00 97.6 53 18 113/72 (86) 95 97.6 03/25/18 13:56 T-piece 6.0 28 03/25/18 13:55 98 T-piece 6.0 28 03/25/18 12:00 97.3 69 19 104/71 (82) 97 97.3 03/25/18 09:12 98.2 53 20 116/78 (91) 100 98.2 03/25/18 09:00 T-piece 03/25/18 08:43 97 48 20 105/80 99 Trach Collar 30 97.0 03/25/18 08:36 206.6 52 12 100 03/25/18 08:35 48 20 121/84 99 Trach Collar 30 03/25/18 08:27 206.6 57 20 99 Intake and Output 03/25/18 03/26/18 19:00 07:00 Intake Total 1357.5 ml 1425 ml Output Total 800 ml Balance 557.5 ml 1425 ml Free Water 30 ml 380 ml IV Total 1312.5 ml 750 ml Tube Feeding 15 ml 295 ml Output Urine Total 800 ml Laboratory Tests 03/26/18 07:44: Alpha Fetoprotein [Pending] Height (Feet): 5 Height (Inches): 5.00 Weight (Pounds): 176 Objective General Appearance: WD/WN, alert, confused Neck: supple Cardiovascular: normal peripheral pulses, normal rate, regular rhythm Respiratory/Chest: chest wall non-tender, lungs clear, normal breath sounds Abdomen: normal bowel sounds, non tender, soft, no organomegaly Lymphatic: normal anterior cervical (L), normal anterior cervical (R), normal posterior cervical (L), normal posterior cervical (R), normal submandibular (L) , normal submandibular (R), normal supraclavicular (L), normal supraclavicular ( R), normal axillary (L), normal axillary (R), normal inguinal (L), normal inguinal (R), normal other Nathaniel Jimenez MD Mar 26, 2018 08:28
[2018-03-26] MEDS: levETIRAcetam 500mg/5ml Liquid GT SCH (08:38)
[2018-03-26] MEDS: Docusate 100mg/10ml Liq GT SCH (08:38)
[2018-03-26] MEDS: LaMICtal 150mg tab ORAL SCH (08:38)
[2018-03-26] MEDS: carBAMazepine 200mg tab ORAL SCH (08:38)
[2018-03-26] MEDS: LORazepam Inj 2mg/ml 1ml IV PRN (08:38)
[2018-03-26 10:10] LABS: BASOPHILS % (AUTO) 1.4 % (0.0-2.0); EOSINOPHILS % (AUTO) 8.4 % (0.0-3.0); HEMATOCRIT 33.6 % (42.0-52.0); HEMOGLOBIN 11.4 G/DL (14.2-18.0); LYMPHOCYTES % (AUTO) 23.4 % (20.0-45.0); MEAN CORPUSCULAR VOLUME 96 FL (80-99); MONOCYTES % (AUTO) 7.4 % (1.0-10.0); NEUTROPHILS % (AUTO) 59.5 % (45.0-75.0); PLATELET COUNT 152 K/UL (150-450); RED BLOOD COUNT 3.51 M/UL (4.70-6.10); RED CELL DISTRIBUTION WIDTH 11.2 % (11.6-14.8); WHITE BLOOD COUNT 5.1 K/UL (4.8-10.8)
[2018-03-26 11:12] LABS: ALANINE AMINOTRANSFERASE 25 U/L (12-78); ALBUMIN/GLOBULIN RATIO 0.8 (1.0-2.7); ALKALINE PHOSPHATASE 135 U/L (46-116); ANION GAP 6 mmol/L (5-15); ASPARTATE AMINO TRANSFERASE 29 U/L (15-37); BILIRUBIN,TOTAL 0.6 MG/DL (0.2-1.0); BLOOD UREA NITROGEN 7 mg/dL (7-18); CALCIUM 8.6 MG/DL (8.5-10.1); CARBON DIOXIDE 25 MMOL/L (21-32); CHLORIDE 107 MMOL/L (98-107); CREATININE 0.9 MG/DL (0.55-1.30); POTASSIUM 3.4 MMOL/L (3.5-5.1); SODIUM 137 MMOL/L (136-145)
[2018-03-26 12:00] VITALS: BP 123/88
--- NOTE | 2018-03-26 13:09 | Consultation ---
History of Present Illness General Date patient seen: Mar 26, 2018 Chief Complaint: General Complaint Present Illness HPI 63-year-old male with history of anoxic encephalopathy, chronic respiratory failure, and COPD. The pt is agitated and attempted to come out of bes. the pt was not following directions. Allergies: Coded Allergies: CODEINE (Verified Allergy, Unknown, 11/15/16) Medication History Scheduled Carbamazepine (Carbamazepine), 300 MG ORAL Q12HR, (Reported) Docusate Sodium* (Docusate Sodium*), 100 MG GT DAILY, (Reported) Lamotrigine (Lamotrigine), 300 MG GT DAILY, (Reported) Levetiracetam (Levetiracetam), 1,000 MG GT BID, (Reported) Scheduled PRN Acetaminophen 160MG/5ML* (Acetaminophen*), 20 ML GT Q4HR PRN for Fever/Headache/ Mild Pain, (Reported) Bisacodyl (Dulcolax), 10 MG RC DAILY PRN for Constipation, (Reported) Magnesium Hydroxide (Milk of Magnesia), 30 ML GT QHS PRN for Constipation, ( Reported) Na Phos,M-B/Na Phos,Di-Ba (Fleet Enema), 133 ML RC every 2 days PRN for Constipation, (Reported) Miscellaneous Medications Chlorhexidine Gluconate (Chlorhexidine Gluconate), 118 ML ORAL, (Reported) Patient History Limited by: medical condition History Provided By: Patient, Medical Record, PMD Healthcare decision maker Resuscitation status Full Code Advanced Directive on File No Past Medical/Surgical History Past Medical/Surgical History: (1) 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 (2) Anoxic encephalopathy syndrome (3) UTI (urinary tract infection) (4) Healthcare-associated pneumonia (5) Respiratory failure (6) GI (gastrointestinal bleed) (7) Epileptic seizure, generalized (8) Feeding by G-tube (9) Acute urinary retention (10) Acute on chronic respiratory failure Review of Systems Psychiatric: Reports: anxiety, depressed feelings, emotional problems Physical Exam General Appearance: no apparent distress, alert, confused, agitated Last 24 Hour Vital Signs Date Time Temp Pulse Resp B/P (MAP) Pulse Ox O2 Delivery O2 Flow Rate FiO2 03/26/18 09:00 T-piece 03/26/18 08:40 T-piece 6.0 28 03/26/18 08:40 99 T-piece 6.0 28 03/26/18 08:00 98.3 62 22 149/70 (96) 100 98.3 03/26/18 04:00 98.0 58 20 114/68 (83) 100 98.0 03/26/18 01:12 T-piece 6.0 28 03/26/18 01:12 99 T-piece 6.0 28 03/26/18 00:00 97.5 76 20 103/68 (80) 100 97.5 03/25/18 21:00 T-piece 03/25/18 20:00 98.5 64 20 124/85 (98) 100 98.5 03/25/18 18:50 T-piece 6.0 28 03/25/18 18:50 98 T-piece 6.0 28 03/25/18 16:00 97.6 53 18 113/72 (86) 95 97.6 03/25/18 13:56 T-piece 6.0 28 03/25/18 13:55 98 T-piece 6.0 28 Intake and Output 03/25/18 03/26/18 19:00 07:00 Intake Total 1357.5 ml 1500 ml Output Total 800 ml Balance 557.5 ml 1500 ml Free Water 30 ml 380 ml IV Total 1312.5 ml 825 ml Tube Feeding 15 ml 295 ml Output Urine Total 800 ml Laboratory Tests Test 03/26/18 07:44 White Blood Count 5.1 K/UL (4.8-10.8) Red Blood Count 3.51 M/UL (4.70-6.10) L Hemoglobin 11.4 G/DL (14.2-18.0) L Hematocrit 33.6 % (42.0-52.0) L Mean Corpuscular Volume 96 FL (80-99) Mean Corpuscular Hemoglobin 32.5 PG (27.0-31.0) H Mean Corpuscular Hemoglobin Concent 33.9 G/DL (32.0-36.0) Red Cell Distribution Width 11.2 % (11.6-14.8) L Platelet Count 152 K/UL (150-450) Mean Platelet Volume 8.8 FL (6.5-10.1) Neutrophils (%) (Auto) 59.5 % (45.0-75.0) Lymphocytes (%) (Auto) 23.4 % (20.0-45.0) Monocytes (%) (Auto) 7.4 % (1.0-10.0) Eosinophils (%) (Auto) 8.4 % (0.0-3.0) H Basophils (%) (Auto) 1.4 % (0.0-2.0) Sodium Level 137 MMOL/L (136-145) Potassium Level 3.4 MMOL/L (3.5-5.1) L Chloride Level 107 MMOL/L (98-107) Carbon Dioxide Level 25 MMOL/L (21-32) Anion Gap 6 mmol/L (5-15) Blood Urea Nitrogen 7 mg/dL (7-18) Creatinine 0.9 MG/DL (0.55-1.30) Estimat Glomerular Filtration Rate > 60 mL/min (>60) Glucose Level 108 MG/DL (74-106) H Calcium Level 8.6 MG/DL (8.5-10.1) Total Bilirubin 0.6 MG/DL (0.2-1.0) Aspartate Amino Transf (AST/SGOT) 29 U/L (15-37) Alanine Aminotransferase (ALT/SGPT) 25 U/L (12-78) Alkaline Phosphatase 135 U/L (46-116) H Total Protein 6.9 G/DL (6.4-8.2) Albumin 3.0 G/DL (3.4-5.0) L Globulin 3.9 g/dL Albumin/Globulin Ratio 0.8 (1.0-2.7) L Alpha Fetoprotein Pending Carbamazepine (Tegretol) Level 6.4 ug/mL (4.0-12.0) Height (Feet): 5 Height (Inches): 5.00 Weight (Pounds): 176 Medications Current Medications Medications (Trade) Dose Ordered Sig/Romelia Route PRN Reason Start Time Stop Time Status Last Admin Dose Admin Acetaminophen (Tylenol) 650 mg Q4H PRN GT Mild Pain/Temp > 100.5 03/23/18 07:00 04/22/18 06:59 Albuterol/ Ipratropium (Albuterol/ Ipratropium) 3 ml Q4H PRN HHN Shortness of Breath 03/23/18 07:00 03/28/18 06:59 Carbamazepine (TEGretol) 300 mg Q12HR ORAL 03/23/18 09:00 04/22/18 08:59 03/26/18 08:38 Dextrose/Sodium Chloride 1,000 ml @ 75 mls/hr [id number] IV 03/23/18 07:00 04/22/18 06:59 03/25/18 17:52 Docusate Sodium (Colace) 100 mg DAILY GT 03/23/18 09:00 04/22/18 08:59 03/26/18 08:38 Lamotrigine (LaMICtal) 300 mg DAILY ORAL 03/23/18 09:00 04/22/18 08:59 03/26/18 08:38 Levetiracetam (Keppra) 1,000 mg Q12HR GT 03/23/18 09:00 04/22/18 08:59 03/26/18 08:38 Lorazepam (Ativan 2mg/ml 1ml) 1 mg Q3H PRN IV For Anxiety 03/24/18 11:45 03/31/18 11:44 03/26/18 08:38 Magnesium Hydroxide (Mom) 30 ml DAILYPRN PRN ORAL Constipation 03/23/18 07:00 04/22/18 06:59 Magnesium Hydroxide (Mom) 30 ml QHS PRN GT Constipation 03/23/18 07:00 04/22/18 06:59 Pantoprazole (Protonix) 40 mg Q12HR ORAL 03/25/18 21:00 04/24/18 20:59 03/26/18 08:38 Piperacillin Sod/ Tazobactam Sod 3.375 gm/Dextrose 110 ml @ 27.5 mls/hr Q8H IVPB 03/23/18 09:30 03/30/18 09:29 03/26/18 10:11 Sodium Phosphate (Fleet's Sodium Phosl Enema) 133 ml DAILY PRN RECTAL Constipation 03/23/18 07:15 04/22/18 06:59 Assessment/Plan Assessment/Plan 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
[2018-03-26] MEDS ORDERED: LORazepam Inj 2mg/ml 1ml IV PRN (13:15)
[2018-03-26] MEDS: D5NS 1,000 ML IV SCH (14:09)
--- NOTE | 2018-03-26 14:47 | General Progress Note ---
Assessment/Plan Assessment/Plan respiratory failure trach GT coffee ground emesis possible gib UTI metabolic alkalosis PLAN dc hydration EGD noted tolerating feeds IV antibiotics ? PO check final cultures dc to snf impression, plan, and exam edited and reviewed in detail care discussed with RN Subjective ROS Limited/Unobtainable: Yes Allergies: Coded Allergies: CODEINE (Verified Allergy, Unknown, 11/15/16) Subjective care noted cleared by gi noted agitation Objective Last 24 Hour Vital Signs Date Time Temp Pulse Resp B/P (MAP) Pulse Ox O2 Delivery O2 Flow Rate FiO2 03/26/18 14:07 T-piece 6.0 28 03/26/18 14:07 98 T-piece 6.0 28 03/26/18 12:00 97.0 66 21 123/88 (100) 100 97.0 03/26/18 09:00 T-piece 03/26/18 08:40 T-piece 6.0 28 03/26/18 08:40 99 T-piece 6.0 28 03/26/18 08:00 98.3 62 22 149/70 (96) 100 98.3 03/26/18 04:00 98.0 58 20 114/68 (83) 100 98.0 03/26/18 01:12 T-piece 6.0 28 03/26/18 01:12 99 T-piece 6.0 28 03/26/18 00:00 97.5 76 20 103/68 (80) 100 97.5 03/25/18 21:00 T-piece 03/25/18 20:00 98.5 64 20 124/85 (98) 100 98.5 03/25/18 18:50 T-piece 6.0 28 03/25/18 18:50 98 T-piece 6.0 28 03/25/18 16:00 97.6 53 18 113/72 (86) 95 97.6 Intake and Output 03/25/18 03/26/18 19:00 07:00 Intake Total 1357.5 ml 1500 ml Output Total 800 ml Balance 557.5 ml 1500 ml Free Water 30 ml 380 ml IV Total 1312.5 ml 825 ml Tube Feeding 15 ml 295 ml Output Urine Total 800 ml Laboratory Tests 03/26/18 07:44: White Blood Count 5.1, Red Blood Count 3.51L, Hemoglobin 11.4L, Hematocrit 33.6L , Mean Corpuscular Volume 96, Mean Corpuscular Hemoglobin 32.5H, Mean Corpuscular Hemoglobin Concent 33.9, Red Cell Distribution Width 11.2L, Platelet Count 152, Mean Platelet Volume 8.8, Neutrophils (%) (Auto) 59.5, Lymphocytes (%) (Auto) 23.4, Monocytes (%) (Auto) 7.4, Eosinophils (%) (Auto) 8.4H, Basophils (%) (Auto) 1.4, Sodium Level 137, Potassium Level 3.4L, Chloride Level 107, Carbon Dioxide Level 25, Anion Gap 6, Blood Urea Nitrogen 7 , Creatinine 0.9, Estimat Glomerular Filtration Rate > 60, Glucose Level 108H, Calcium Level 8.6, Total Bilirubin 0.6, Aspartate Amino Transf (AST/SGOT) 29, Alanine Aminotransferase (ALT/SGPT) 25, Alkaline Phosphatase 135H, Total Protein 6.9, Albumin 3.0L, Globulin 3.9, Albumin/Globulin Ratio 0.8L, Alpha Fetoprotein [Pending], Carbamazepine (Tegretol) Level 6.4 Height (Feet): 5 Height (Inches): 5.00 Weight (Pounds): 176 Objective WDWN NAD, awake and agitated clear breath sounds bilaterally without rhonchi or wheeze trach [id number] without MRG NABS nontender no HSM; Gt no CC; trace edema confused tolerating feeds Gerber Shelton MD Mar 26, 2018 14:47
[2018-03-26 16:00] VITALS: BP 138/82
[2018-03-26] MEDS ORDERED: CEPHALEXIN500 M1 ORAL (17:28)
[2018-03-26] MEDS ORDERED: Cephalexin 500mg cap ORAL SCH (18:00)
--- NOTE | 2018-03-26 22:56 | General Progress Note ---
Assessment/Plan Assessment/Plan Assessment - UGIB - resp failure - trach - dysphagia - GT (deteriorated) - mild anemia - h/o cholelithiasis (07/28) w/o CBD stone on MRCP - h/o cirrhosis on imaging (07/28) - h/o gastric ulcer - elevated alk phos - outpatient periodic N/V Recommendations - TF - PPI BID - r/o Barretts - f/u path - reflux precautions Subjective Allergies: Coded Allergies: CODEINE (Verified Allergy, Unknown, 11/15/16) Subjective above noted no events overnight for discharge today Objective Last 24 Hour Vital Signs Date Time Temp Pulse Resp B/P (MAP) Pulse Ox O2 Delivery O2 Flow Rate FiO2 03/26/18 16:00 98.2 59 21 138/82 (100) 100 98.2 03/26/18 14:07 T-piece 6.0 28 03/26/18 14:07 98 T-piece 6.0 28 03/26/18 12:00 97.0 66 21 123/88 (100) 100 97.0 03/26/18 09:00 T-piece 03/26/18 08:40 T-piece 6.0 28 03/26/18 08:40 99 T-piece 6.0 28 03/26/18 08:00 98.3 62 22 149/70 (96) 100 98.3 03/26/18 04:00 98.0 58 20 114/68 (83) 100 98.0 03/26/18 01:12 T-piece 6.0 28 03/26/18 01:12 99 T-piece 6.0 28 03/26/18 00:00 97.5 76 20 103/68 (80) 100 97.5 Intake and Output 03/25/18 03/26/18 19:00 07:00 Intake Total 1357.5 ml 1500 ml Output Total 800 ml Balance 557.5 ml 1500 ml Free Water 30 ml 380 ml IV Total 1312.5 ml 825 ml Tube Feeding 15 ml 295 ml Output Urine Total 800 ml Laboratory Tests 03/26/18 07:44: White Blood Count 5.1, Red Blood Count 3.51L, Hemoglobin 11.4L, Hematocrit 33.6L , Mean Corpuscular Volume 96, Mean Corpuscular Hemoglobin 32.5H, Mean Corpuscular Hemoglobin Concent 33.9, Red Cell Distribution Width 11.2L, Platelet Count 152, Mean Platelet Volume 8.8, Neutrophils (%) (Auto) 59.5, Lymphocytes (%) (Auto) 23.4, Monocytes (%) (Auto) 7.4, Eosinophils (%) (Auto) 8.4H, Basophils (%) (Auto) 1.4, Sodium Level 137, Potassium Level 3.4L, Chloride Level 107, Carbon Dioxide Level 25, Anion Gap 6, Blood Urea Nitrogen 7 , Creatinine 0.9, Estimat Glomerular Filtration Rate > 60, Glucose Level 108H, Calcium Level 8.6, Total Bilirubin 0.6, Aspartate Amino Transf (AST/SGOT) 29, Alanine Aminotransferase (ALT/SGPT) 25, Alkaline Phosphatase 135H, Total Protein 6.9, Albumin 3.0L, Globulin 3.9, Albumin/Globulin Ratio 0.8L, Alpha Fetoprotein [Pending], Carbamazepine (Tegretol) Level 6.4 Height (Feet): 5 Height (Inches): 5.00 Weight (Pounds): 176 Objective Obese AA man NCAT supple, (+) Trach CTA RRR soft ND, (+) GT no edema (L) weakness Jacob Farmer MD Mar 26, 2018 22:56
--- NOTE | 2018-03-26 23:38 | Diagnostic Imaging Report ---
APPROVED REPORT CPT Code: 17175 Present Symptoms Comments: Hx of bleeding R/O DVT BILATERAL: Imaging reveals a patent deep venous system bilaterally. There is no evidence of thrombus within the femoral, popliteal or tibial segments. The greater saphenous veins are also within normal limits. Doppler indicates normal spontaneous flow within these segments.
--- NOTE | 2018-03-27 07:20 | Discharge Summary ---
Discharge Summary Discharge Summary _ DATE OF ADMISSION: 03/22/2018 DATE OF DISCHARGE: 03/26/2018 CONSULTANTS: Dr. Jacob Garrido BRIEF HOSPITAL COURSE: Patient is a 63-year-old male, with history of anoxic encephalopathy, chronic respiratory failure, and COPD. He has history of peptic ulcer disease, recurrent urinary tract infection, pneumonia, hypertension and seizure disorder. He was transferred from a intermediate facility with complaints of coffee-ground emesis. According to the staff, patient had multiple episodes of coffee-ground emesis while at the correction. On evaluation at ED, blood pressure was 99/56. Blood work showed hemoglobin 12.7, hematocrit was 36. INR 1.1. Urinalysis showed 15-20 WBC, 5-10 RBC, 2+ leukocyte esterase, 1+ occult blood, 1+ protein and many bacteria. He had a chest x-ray done that showed mild interstitial and airspace opacities with a small left pleural effusion. CT of the abdomen and pelvis again with air space opacity in the posterior lung base and presence of small left pleural effusion. He was then admitted for evaluation of acute GI bleed and urinary infection. He was placed on nothing by mouth. He was given IV fluids. He was started on IV proton pump inhibitors. He was started empirically on Zosyn for urine infection. He was seen by Dr. Farmer. Blood levels were monitored. MRI of the abdomen was negative for dilated ducts or choledocholithiasis. On 2017, he underwent upper GI endoscopy with biopsy as well as G-tube change. Findings showed gastroesophageal reflux disease with reflux-related erosions and linear ulcerations which was source of the gastrointestinal bleed. The gastrostomy tube was exchanged with a 20 [place] balloon catheter. Esophagus was biopsied. He tolerated procedure well. Proton pump inhibitors was increased to twice a day. He was placed on reflux precautions and was eventually restarted on G-tube feedings. Venous duplex was negative. Patient was agitated and was attempting to come out of bed. Patient was not following directions. He was seen by psychiatrist and was diagnosed with encephalopathy. He was given Seroquel 25 mg 3 times a day with prn Ativan. Urine culture showed growth of Escherichia coli. Antibiotic was switched to Keflex. He was tolerating tube feeding well. Hemoglobin and hematocrit was stable. Patient was then cleared for discharge back to correction. FINAL DIAGNOSES: Acute GI bleed Escherichia coli UTI Dysphagia on G-tube Status post EGD with biopsy and G-tube change Anemia Respiratory failure on trach Metabolic alkalosis Encephalopathy due to general medical condition Urinary retention Healthcare associated pneumonia Seizure disorder DISPOSITION: Patient was discharged to [facility]. DISCHARGE MEDICATIONS: Refer to Discharge Medication List. Continue with cephalexin for 5 more days. I have been assigned to dictate discharge summary on this account, and I was not involved in the patient's management. Sdea Salazar NP Mar 27, 2018 07:20
== END 2018-03-26 18:39 | DRG 326 ==
LOC: EDBD 22:17 → EMR 23:20 → EDBEDREQ 23:37 → 4E 23:42 → EDBEDREQ 03-23 00:04
PROC: 0DB58ZX Excision of Esophagus, Via Natural or Artificial Opening Endoscopic, Diagnostic (ICD-10-PCS; principal; 2018-03-25 07:44)
PROC: 0DP64UZ Removal of Feeding Device from Stomach, Percutaneous Endoscopic Approach (ICD-10-PCS; principal; 2018-03-25 07:44)
PROC: 0DH63UZ Insertion of Feeding Device into Stomach, Percutaneous Approach (ICD-10-PCS; principal; 2018-03-25 07:44)
DX: K92.2 Gastrointestinal hemorrhage, unspecified (principal); G93.40 Encephalopathy, unspecified; J18.9 Pneumonia, unspecified organism; J96.20 Acute and chronic respiratory failure, unspecified whether with hypoxia or hypercapnia; E87.3 Alkalosis; N39.0 Urinary tract infection, site not specified; Z43.1 Encounter for attention to gastrostomy; G93.1 Anoxic brain damage, not elsewhere classified; B96.20 Unspecified Escherichia coli [E. coli] as the cause of diseases classified elsewhere; R13.10 Dysphagia, unspecified; D64.9 Anemia, unspecified; Z43.0 Encounter for attention to tracheostomy; R33.9 Retention of urine, unspecified; Y95 Nosocomial condition; G40.909 Epilepsy, unspecified, not intractable, without status epilepticus; J44.9 Chronic obstructive pulmonary disease, unspecified; Z88.6 Allergy status to analgesic agent; F14.21 Cocaine dependence, in remission; G83.9 Paralytic syndrome, unspecified; G40.309 Generalized idiopathic epilepsy and epileptic syndromes, not intractable, without status epilepticus
CPT/HCPCS: 36415; 36600; 71045; 74176; 74181; 80053; 80156; 81003; 82105; 82803; 83690; 85025; 85610; 85730; 86850; 86900; 86901; 87086; 87181; 93005; 93970; 94003; 94150; 94760; J2405

== ENCOUNTER 2019-05-03 09:53 | Emergency (ER) | payer MEDICARE, MEDICAID ==
[~2019-05-03] VITALS: Ht 172.7 cm; Wt 77.1 kg
[~2019-05-03 09:53] MED LIST changes: +CARBAMAZEP100 MG/5 M ORAL; +CEPHALEXIN500 M1 ORAL; +CHLORHEXIDINE118 ML ORAL; +DOCUSATE SODIU100 MG GT; +DULCOLAX10 MG RC; +FLEET ENEMA133 M1 RC; +LEVETIRACE500 MG/51 GT; +MOM30 ML GT
[2019-05-03] MEDS ORDERED: levETIRAcetam 1,000mg/NS100ml 100 ML IVPB ONE (10:00)
--- NOTE | 2019-05-03 10:03 | Emergency Room Report ---
History of Present Illness General Chief Complaint: Seizure Source: Medical Record Present Illness HPI Disclaimer: Please note that this report is being documented using [employer] technology. This can lead to erroneous entry secondary to incorrect interpretation by the dictating instrument. HPI: 64-year-old male with a history of seizure disorder on Lamictal, encephalopathy, G-tube and previously trach dependent the trach was recently removed, COPD, hypertension presenting for evaluation after generalized tonic- clonic seizures. He presents from his nursing facility. He was reportedly found seizing, generalized tonic-clonic, for 30 seconds and 2 separate episode. No reported head injury. He also seized for EMS on route and was given 5 mg of Versed. He was reportedly hypoxic by EMS into the mid 80s but resolved when he coughed up some mucus. Has been saturating 100% since. He received his morning Lamictal dose. Blood sugar on arrival was 200. At baseline, the patient is reportedly able to follow with his gaze and nod appropriately to questioning. At this time he has bilateral ocular deviation to the left superior quadrant, not answering questions, tones in all extremities. According to accompanying documentation he was recently discharged from [facility] for GI bleed. He was discharged on 05/02. Medical record also shows history of alcohol abuse, duodenal ulcers, respiratory failure due to COPD and recent tracheostomy removal. PMH: Chronic liver disease with cirrhosis, cholelithiasis, gastric ulcer, duodenal ulcer, COPD with respiratory failure, alcohol abuse, chronic anemia, dysphagia PSH: Gastrostomy tube, tracheostomy Allergies: Codeine listed Social Hx: Former tobacco use, former alcohol abuse Allergies: Coded Allergies: CODEINE (Verified Allergy, Unknown, 11/15/16) Nursing Documentation-PMH Past Medical History: No History, Except For Hx Cardiac Problems: Yes - anemia Hx Hypertension: Yes Hx Asthma: Yes Hx COPD: Yes Hx Diabetes: No Hx Cancer: Yes Hx Gastrointestinal Problems: Yes Hx Neurological Problems: Yes - encephalopathy Hx Cerebrovascular Accident: Yes Hx Seizures: Yes Review of Systems All Other Systems: limited - Patient is nonverbal Physical Exam Vital Signs Date Time Temp Pulse Resp B/P (MAP) Pulse Ox O2 Delivery O2 Flow Rate FiO2 05/03/19 09:54 96.6 109 20 149/104 (119) 98 Room Air General: Cachectic, chronically ill-appearing male HEENT: NC/AT. Pupils were originally deviated to the left and superiorly with rhythmic beating to the left on arrival however now they are tracking back and forth rhythmically. Pupils are approximately 4 mm and weakly reactive bilaterally. Slightly icteric sclera. Dry mucous membranes. Neck: Tracheostomy without trach collar. No bleeding or drainage. Chest Wall: No tenderness, no deformity Cardiovascular: Borderline tachycardia. S1 and S2 normal. No murmur appreciated Resp: Normal work of breathing. No cough, wheezing or crackles appreciated Abdomen: Abdomen is soft, nondistended. G-tube in place MSK: Rigidity in the extremities Neuro: Nonverbal, rigid in the upper extremities. No rhythmic/tonic-clonic movement. Medical Decision Making Diagnostic Impression: Primary Impression: Breakthrough seizure Additional Impression: Pneumonia ER Course 64-year-old male with a history of seizure disorder presents for evaluation after 2 generalized tonic-clonic seizures aborted with Versed prior to arrival by EMS. All the patient did originally have some left eye deviation it is now resolved. Reportedly his baseline is he is able to track visually and nod to questions however at this time he is not tracking or responding to verbal or physical stimuli. Will obtain CT scan of the head, load with Keppra, start broad infectious and metabolic work-up. Likely require readmission Laboratory Tests Test 05/03/19 10:00 05/03/19 10:10 05/03/19 10:48 05/03/19 11:00 White Blood Count 15.9 K/UL (4.8-10.8) H Red Blood Count 4.35 M/UL (4.70-6.10) L Hemoglobin 14.9 G/DL (14.2-18.0) Hematocrit 42.7 % (42.0-52.0) Mean Corpuscular Volume 98 FL (80-99) Mean Corpuscular Hemoglobin 34.4 PG (27.0-31.0) H Mean Corpuscular Hemoglobin Concent 35.0 G/DL (32.0-36.0) Red Cell Distribution Width 11.5 % (11.6-14.8) L Platelet Count 128 K/UL (150-450) L Mean Platelet Volume 8.3 FL (6.5-10.1) Neutrophils (%) (Auto) % (45.0-75.0) Lymphocytes (%) (Auto) % (20.0-45.0) Monocytes (%) (Auto) % (1.0-10.0) Eosinophils (%) (Auto) % (0.0-3.0) Basophils (%) (Auto) % (0.0-2.0) Differential Total Cells Counted 100 Neutrophils % (Manual) 93 % (45-75) H Lymphocytes % (Manual) 2 % (20-45) L Monocytes % (Manual) 5 % (1-10) Eosinophils % (Manual) 0 % (0-3) Basophils % (Manual) 0 % (0-2) Band Neutrophils 0 % (0-8) Platelet Estimate Decreased L Platelet Morphology Normal Red Blood Cell Morphology Normal Sodium Level 135 MMOL/L (136-145) L Potassium Level 3.3 MMOL/L (3.5-5.1) L Chloride Level 96 MMOL/L (98-107) L Carbon Dioxide Level 26 MMOL/L (21-32) Anion Gap 13 mmol/L (5-15) Blood Urea Nitrogen 11 mg/dL (7-18) Creatinine 1.1 MG/DL (0.55-1.30) Estimate Glomerular Filtration Rate > 60 mL/min (>60) Glucose Level 230 MG/DL (74-106) H Calcium Level 9.3 MG/DL (8.5-10.1) Total Bilirubin 1.2 MG/DL (0.2-1.0) H Direct Bilirubin 0.4 MG/DL (0.0-0.3) H Aspartate Amino Transferase (AST) 35 U/L (15-37) Alanine Aminotransferase (ALT) 36 U/L (12-78) Alkaline Phosphatase 135 U/L (46-116) H Total Creatine Kinase 360 U/L (26-308) H Creatine Kinase MB 6.1 NG/ML (0.0-3.6) H Creatine Kinase MB Relative Index 1.6 Troponin I 0.031 ng/mL (0.000-0.056) Total Protein 7.8 G/DL (6.4-8.2) Albumin 4.0 G/DL (3.4-5.0) Globulin 3.8 g/dL Albumin/Globulin Ratio 1.1 (1.0-2.7) Salicylates Level < 0.2 ug/mL (2.8-20) L Acetaminophen Level < 3 MCG/ML (10-30) L Serum Alcohol < 3 mg/dL Urine Color Yellow Urine Appearance Clear Urine pH 6.5 (4.5-8.0) Urine Specific [place] 1.020 (1.005-1.035) Urine Protein 3+ (NEGATIVE) H Urine Glucose (UA) 2+ (NEGATIVE) H Urine Ketones 1+ (NEGATIVE) H Urine Blood 3+ (NEGATIVE) H Urine Nitrite Negative (NEGATIVE) Urine Bilirubin Negative (NEGATIVE) Urine Urobilinogen 8 MG/DL (0.0-1.0) H Urine Leukocyte Esterase 1+ (NEGATIVE) H Urine RBC 5-10 /HPF (0 - 0) H Urine WBC 0-2 /HPF (0 - 0) Urine Squamous Epithelial Cells Occasional /LPF Urine Bacteria Occasional /HPF (NONE) Urine Mucus Moderate /LPF (NONE/OCC) H Urine Opiates Screen Negative (NEGATIVE) Urine Barbiturates Screen Negative (NEGATIVE) Phencyclidine (PCP) Screen Negative (NEGATIVE) Urine Amphetamines Screen Negative (NEGATIVE) Urine Benzodiazepines Screen Positive (NEGATIVE) H Urine Cocaine Screen Negative (NEGATIVE) Urine Marijuana (THC) Screen Negative (NEGATIVE) Arterial Blood pH 7.474 (7.350-7.450) Arterial Blood Partial Pressure CO2 35.4 mmHg (35.0-45.0) Arterial Blood Partial Pressure O2 70.3 mmHg (75.0-100.0) L Arterial Blood HCO3 25.4 mmol/L (22.0-26.0) Arterial Blood Oxygen Saturation 94.6 % (95-100) L Arterial Blood Base Excess 2.1 (-2-2) H Aston Test Positive Ammonia 52 umol/L (11-32) H EKG Diagnostic Results EKG Time: 09:58 Rate: tachycardiac ST Segments: no acute changes Other Impression Sinus rhythm, normal axis, tachycardia normal intervals, no acute ST changes Rhythm Strip Diag. Results Rhythm Strip Time: 09:58 EP Interpretation: yes Rate: 110s Rhythm: no PVC's, no ectopy Chest X-Ray Diagnostic Results Chest X-Ray Diagnostic Results : Indication: Shortness of Breath EP Interpretation: Yes Interpretation: no consolidation, no effusion, no pneumothorax, other - Perihilar thickening Impression: No acute disease Electronically Signed by: Electronically signed by Dr. Ravi Ruiz Status: unchanged Reevaluation Impression No seizure activity since arrival in the emergency department. CT scan of the head shows no acute processes. No gross electrolyte abnormalities were noted. Patient's heart rate had improved. Discussed with his PMD who agreed the patient was suitable for outpatient follow-up. He will be discharged back to his intermediate facility. 1430: Radiology is interpret the patient's EKG as likely bilateral infiltrates. Given the white count and the patient's mucus production this may represent an acute pneumonia. Patient also has a history of chronic lung disease and may be his baseline as his chest ray does not look significantly changed from his prior study in 2018. The patient was prescribed doxycycline sent electronically to his pharmacy and his PMD was notified. Disposition: XFER [facility] Condition: Stable Scripts Doxycycline Monohydrate* (DOXYCYCLINE MONOHYDRATE*) 100 Mg Capsule 100 MG ORAL Q12H for 7 Days, #14 CAP 0 Refills Prov: Ravi Ruiz MD 05/03/19 Ravi Ruiz MD May 03, 2019 10:03
[2019-05-03] MEDS ORDERED: MULTI-DELYN237 ML GT (10:05)
[2019-05-03 10:08] VITALS: BP 149/104
[2019-05-03 10:13] LABS: HEMATOCRIT 42.7 % (42.0-52.0); HEMOGLOBIN 14.9 G/DL (14.2-18.0); MEAN CORPUSCULAR VOLUME 98 FL (80-99); PLATELET COUNT 128 K/UL (150-450); RED BLOOD COUNT 4.35 M/UL (4.70-6.10); RED CELL DISTRIBUTION WIDTH 11.5 % (11.6-14.8); WHITE BLOOD COUNT 15.9 K/UL (4.8-10.8)
[2019-05-03] MEDS ORDERED: LORazepam Inj 2mg/ml 1ml IV ONE (10:15)
--- NOTE | 2019-05-03 10:19 | NUR ---
ED Nurse Note: Pt KRISTIAN from [facility] due to seizure episode x2 this morning around 0920. Generalized seizure noted, witnessed by facility staffs. Episodes last for about 30 seconds. Shaking movement, drooling and bilateral deviated pupils noted. Pt does not respond to any questions but reacts to pain. AOx1 baseline. Pt D/C trache 1 month ago. Previous tracheostomy site intact, no signs of redness, swelling. G-tube noted on medial abdomen. Vital signs stable at this time. Will cont to monitor.
[2019-05-03 10:21] LABS: ANION GAP 13 mmol/L (5-15); BLOOD UREA NITROGEN 11 mg/dL (7-18); CALCIUM 9.3 MG/DL (8.5-10.1); CARBON DIOXIDE 26 MMOL/L (21-32); CHLORIDE 96 MMOL/L (98-107); CREATININE 1.1 MG/DL (0.55-1.30); POTASSIUM 3.3 MMOL/L (3.5-5.1); SODIUM 135 MMOL/L (136-145)
[2019-05-03 10:27] LABS: APPEARANCE,URINE CLEAR; BILIRUBIN, URINE NEGATIVE (NEGATIVE); GLUCOSE, URINE (UA) 2+ (NEGATIVE); KETONES,URINE 1+ (NEGATIVE); LEUKOCYTE ESTERASE ,URINE 1+ (NEGATIVE); NITRITE,URINE NEGATIVE (NEGATIVE); PH,URINE 6.5 (4.5-8.0); PROTEIN,URINE 3+ (NEGATIVE); UROBILINOGEN,URINE 8 MG/DL (0.0-1.0)
--- NOTE | 2019-05-03 10:30 | NUR ---
ED Nurse Note: Pt is back from CT scan via gurney. No sign of acute distress.
[2019-05-03 10:35] LABS: ALANINE AMINOTRANSFERASE 36 U/L (12-78); ALBUMIN/GLOBULIN RATIO 1.1 (1.0-2.7); ALKALINE PHOSPHATASE 135 U/L (46-116); ASPARTATE AMINO TRANSFERASE 35 U/L (15-37); BILIRUBIN,TOTAL 1.2 MG/DL (0.2-1.0); CKMB 6.1 NG/ML (0.0-3.6); CREATINE KINASE 360 U/L (26-308)
[2019-05-03 10:36] LABS: COLOR,URINE YELLOW
[2019-05-03 10:41] LABS: BILIRUBIN,DIRECT 0.4 MG/DL (0.0-0.3)
--- NOTE | 2019-05-03 10:51 | Diagnostic Imaging Report ---
EXAM: CT Head Without Intravenous Contrast CLINICAL HISTORY: SZ TECHNIQUE: Axial computed tomography images of the head brain without intravenous contrast. CTDI is 70.38 mGy and DLP is 1473 mGy-cm. One or more of the following dose reduction techniques were used: automated exposure control, adjustment of the mA and or kV according to patient size, use of iterative reconstruction technique. COMPARISON: No relevant prior studies available. FINDINGS: Brain: No hemorrhage. No edema. Atrophy and small vessel disease. Encephalomalacia in the right occipital-parietal lobe with ex vacuo dilatation of the adjacent ventricle. Small area of gliosis in the left frontal lobe. Ventricles: No ventriculomegaly. Bones joints: No acute fracture. Soft tissues: Unremarkable. Sinuses: No acute sinusitis. Mastoid air cells: Partial right mastoid of calcification. IMPRESSION: No acute intracranial process.
--- NOTE | 2019-05-03 11:32 | Diagnostic Imaging Report ---
EXAM: XR Chest, 1 View CLINICAL HISTORY: SOB TECHNIQUE: Frontal view of the chest. COMPARISON: No relevant prior studies available. FINDINGS: Lungs: Reduced lung volumes with patchy basilar infiltrates. Left pleural effusion thickening not excluded. Pleural space: See above. Heart: Cardiomegaly. Mediastinum: Unremarkable. Bones joints: No acute fracture. IMPRESSION: Reduced lung volumes with patchy basilar infiltrates. Left pleural effusion thickening not excluded.
--- NOTE | 2019-05-03 12:09 | NUR ---
ED Nurse Note: Report given to Radha RICHARDS of [facility].
[2019-05-03 12:33] VITALS: BP 145/85
[2019-05-03 13:15] VITALS: BP 133/95
--- NOTE | 2019-05-03 13:15 | NUR ---
ED Nurse Note: Ambulance personels at bedside for transportation. Pt is in no distress.
[2019-05-03 13:16] VITALS: BP 133/95
[2019-05-03] MEDS ORDERED: DOXYCYCLINE MO100 MG ORAL (14:56)
--- NOTE | 2019-05-04 19:52 | Cardiology Report ---
APPROVED REPORT EKG Measurement Heart [id number] Sinus tachycardia Possible Left atrial enlargement Nonspecific ST abnormality Abnormal ECG
== END 2019-05-03 13:16 ==
LOC: EDBD 09:53 → EMR 10:10
DX: G40.909 Epilepsy, unspecified, not intractable, without status epilepticus (principal); J18.9 Pneumonia, unspecified organism; J44.9 Chronic obstructive pulmonary disease, unspecified; I10 Essential (primary) hypertension; Z85.9 Personal history of malignant neoplasm, unspecified; Z86.73 Personal history of transient ischemic attack (TIA), and cerebral infarction without residual deficits; Z88.6 Allergy status to analgesic agent; Z87.891 Personal history of nicotine dependence; K74.60 Unspecified cirrhosis of liver; R00.0 Tachycardia, unspecified
CPT/HCPCS: 36415; 36600; 70450; 71045; 80053; 80307; 81003; 82140; 82248; 82550; 82553; 82803; 82962; 84484; 85007; 85025; 93005; 96361; 96374; 96375; 99284; G0480; J1953; 80329

== ENCOUNTER 2019-05-20 20:07 | Inpatient (IN) | payer MEDICARE, MEDICAID ==
[~2019-05-20] VITALS: Ht 175.3 cm; Wt 63.5 kg
[~2019-05-20 20:07] MED LIST changes: +DOXYCYCLINE MO100 MG ORAL; +MULTI-DELYN237 ML GT
[2019-05-20 20:08] VITALS: BP 138/86
--- NOTE | 2019-05-20 20:09 | NUR ---
ED Nurse Note: pt brought in by ambulance from [facility] for elevated temp since eali to day. 650mg tylenodl [facility] at the shelter. pt current temp via rectal is 102.6F. BP 116/77 p 90, RR 18.pt is AOx0. non verbal. pt is on a vent with setting of portex 7, ac12, tv 500 , peep 5, fi02 28% with sp02 100%. noted with PICC triple lumen to right upper arm and is intact.
[2019-05-20] MEDS ORDERED: Vancomycin 1 GM in NS 275 ML IV ONE (20:15)
[2019-05-20] MEDS ORDERED: Sodium Chloride 1,900 ML IVLG ONE (20:15)
[2019-05-20] MEDS: Cefepime HCl 2 GM in NS 110 ML IV SCH ×2 (20:22→23:58)
--- NOTE | 2019-05-20 20:25 | NUR ---
ED Nurse Note: blood and urine sample is sent down to lab
[2019-05-20 20:47] LABS: BASOPHILS % (AUTO) 2.5 % (0.0-2.0); EOSINOPHILS % (AUTO) 0.1 % (0.0-3.0); HEMATOCRIT 33.7 % (42.0-52.0); HEMOGLOBIN 11.7 G/DL (14.2-18.0); LYMPHOCYTES % (AUTO) 16.6 % (20.0-45.0); MEAN CORPUSCULAR VOLUME 99 FL (80-99); MONOCYTES % (AUTO) 6.8 % (1.0-10.0); NEUTROPHILS % (AUTO) 73.9 % (45.0-75.0); PLATELET COUNT 210 K/UL (150-450); RED BLOOD COUNT 3.41 M/UL (4.70-6.10); RED CELL DISTRIBUTION WIDTH 11.6 % (11.6-14.8); WHITE BLOOD COUNT 7.3 K/UL (4.8-10.8)
[2019-05-20 20:47] LABS: APPEARANCE,URINE CLEAR; BILIRUBIN, URINE NEGATIVE (NEGATIVE); GLUCOSE, URINE (UA) NEGATIVE (NEGATIVE); KETONES,URINE NEGATIVE (NEGATIVE); LEUKOCYTE ESTERASE ,URINE NEGATIVE (NEGATIVE); NITRITE,URINE NEGATIVE (NEGATIVE); PH,URINE 7 (4.5-8.0); PROTEIN,URINE 1+ (NEGATIVE); UROBILINOGEN,URINE 4 MG/DL (0.0-1.0)
[2019-05-20 20:50] LABS: COLOR,URINE YELLOW
[2019-05-20 20:51] LABS: ANION GAP 8 mmol/L (5-15); BLOOD UREA NITROGEN 13 mg/dL (7-18); CALCIUM 8.5 MG/DL (8.5-10.1); CARBON DIOXIDE 26 MMOL/L (21-32); CHLORIDE 98 MMOL/L (98-107); CREATININE 1.1 MG/DL (0.55-1.30); POTASSIUM 3.6 MMOL/L (3.5-5.1); SODIUM 132 MMOL/L (136-145)
--- NOTE | 2019-05-20 21:01 | Emergency Room Report ---
History of Present Illness General Chief Complaint: Fever Source: Patient Present Illness HPI 64-year-old male with a history of seizure disorder on Lamictal, encephalopathy , G-tube and trach dependent, COPD, hypertension presenting for sepsis, altered mental status, patient febrile tachycardic this a.m., no aggravating relieving factors severity was severe, constant characterization was fever. Patient was sent in from halfway for evaluation. Allergies: Coded Allergies: CODEINE (Verified Allergy, Unknown, 11/15/16) Patient History Limited by: medical condition - Trach, altered Past Medical History: see triage record Reviewed Nursing Documentation: PMH: Agreed; PSxH: Agreed Nursing Documentation-PMH Past Medical History: No History, Except For Hx Hypertension: Yes Hx Asthma: Yes Hx COPD: Yes - TRACHESOTOMY Hx Diabetes: No Hx Cancer: Yes Hx Gastrointestinal Problems: Yes Hx Neurological Problems: Yes - encephalopathy Hx Cerebrovascular Accident: Yes Hx Seizures: Yes Review of Systems All Other Systems: limited - Trach/altered Physical Exam Vital Signs Date Time Temp Pulse Resp B/P (MAP) Pulse Ox O2 Delivery O2 Flow Rate FiO2 05/20/19 20:01 99.5 102 20 138/93 (108) 97 Endotracheal Tube 05/20/19 20:22 28 Sp02 EP Interpretation: reviewed, normal General Appearance: severe distress, Chronically Ill Head: normocephalic, atraumatic Eyes: bilateral eye PERRL, bilateral eye EOMI ENT: uvula midline, dry mucus membranes Neck: supple, thyroid normal, supple/symm/no masses, tracheotomy Respiratory: no respiratory distress, no retraction, no accessory muscle use, decreased breath sounds - bilaterally Cardiovascular #1: normal peripheral pulses, no edema, no gallop, no murmur, tachycardia Gastrointestinal: non tender, soft, no guarding, no rebound Musculoskeletal: normal inspection Neurologic: responsive Skin: no rash, warm/dry Procedures Critical Care Time Critical Care Time Given the critical condition in which the patient arrived, the patient was immediately assessed by myself and the nurse, and cardiac monitoring initiated due to the potential for rapid decompensation of the patient's clinical condition. During the course of the patient's stay, I spent a considerable amount of time at the bedside performing serial re-evaluations of the patient's hemodynamic and clinical status because of the recognized potential threat to life or limb in this condition. I then had a chance to review not only all of the available current laboratory and radiographic studies obtained today, but I also reviewed old records available to me at the time. Additionally, any ancillary information available including [employer] records were reviewed. Sequential vital signs were obtained. Critical Care time of 33 minutes was performed exclusive of billable procedures. Medical Decision Making Diagnostic Impression: Primary Impression: Sepsis Qualified Codes: A41.9 - Sepsis, unspecified organism Additional Impression: Altered mental status Qualified Codes: R41.82 - Altered mental status, unspecified ER Course 64-year-old male presents with altered mental status fever, tachycardia, concerning for urosepsis versus pulmonary sepsis. Sepsis work-up was conducted, patient was given a 30 cc/kg bolus, broad- spectrum antibiotics were started cefepime Vanco metronidazole evaluation at 9 PM, tachycardia has resolved, patient remains altered We will admit patient to stepdown unit Patient admitted to Dr. Shelton Laboratory Tests Test 05/20/19 20:10 05/20/19 20:13 05/20/19 20:16 Arterial Blood pH 7.473 (7.350-7.450) Arterial Blood Partial Pressure CO2 33.7 mmHg (35.0-45.0) L Arterial Blood Partial Pressure O2 114.2 mmHg (75.0-100.0) H Arterial Blood HCO3 24.1 mmol/L (22.0-26.0) Arterial Blood Oxygen Saturation 97.8 % (95-100) Arterial Blood Base Excess 0.9 (-2-2) Aston Test Positive Urine Color Yellow Urine Appearance Clear Urine pH 7 (4.5-8.0) Urine Specific Delano 1.010 (1.005-1.035) Urine Protein 1+ (NEGATIVE) H Urine Glucose (UA) Negative (NEGATIVE) Urine Ketones Negative (NEGATIVE) Urine Blood 5+ (NEGATIVE) H Urine Nitrite Negative (NEGATIVE) Urine Bilirubin Negative (NEGATIVE) Urine Urobilinogen 4 MG/DL (0.0-1.0) H Urine Leukocyte Esterase Negative (NEGATIVE) Urine RBC 30-40 /HPF (0 - 0) H Urine WBC 0-2 /HPF (0 - 0) Urine Squamous Epithelial Cells Occasional /LPF Urine Bacteria None /HPF (NONE) White Blood Count 7.3 K/UL (4.8-10.8) Red Blood Count 3.41 M/UL (4.70-6.10) L Hemoglobin 11.7 G/DL (14.2-18.0) L Hematocrit 33.7 % (42.0-52.0) L Mean Corpuscular Volume 99 FL (80-99) Mean Corpuscular Hemoglobin 34.1 PG (27.0-31.0) H Mean Corpuscular Hemoglobin Concent 34.6 G/DL (32.0-36.0) Red Cell Distribution Width 11.6 % (11.6-14.8) Platelet Count 210 K/UL (150-450) Mean Platelet Volume 8.7 FL (6.5-10.1) Neutrophils (%) (Auto) 73.9 % (45.0-75.0) Lymphocytes (%) (Auto) 16.6 % (20.0-45.0) L Monocytes (%) (Auto) 6.8 % (1.0-10.0) Eosinophils (%) (Auto) 0.1 % (0.0-3.0) Basophils (%) (Auto) 2.5 % (0.0-2.0) H Prothrombin Time Pending Prothrombin Time INR Pending PTT Pending Sodium Level 132 MMOL/L (136-145) L Potassium Level 3.6 MMOL/L (3.5-5.1) Chloride Level 98 MMOL/L (98-107) Carbon Dioxide Level 26 MMOL/L (21-32) Anion Gap 8 mmol/L (5-15) Blood Urea Nitrogen 13 mg/dL (7-18) Creatinine 1.1 MG/DL (0.55-1.30) Estimate Glomerular Filtration Rate > 60 mL/min (>60) Glucose Level 220 MG/DL (74-106) H Lactic Acid Level Pending Calcium Level 8.5 MG/DL (8.5-10.1) Phosphorus Level 3.5 MG/DL (2.5-4.9) Magnesium Level 1.4 MG/DL (1.8-2.4) L Total Bilirubin 1.1 MG/DL (0.2-1.0) H Direct Bilirubin 0.6 MG/DL (0.0-0.3) H Aspartate Amino Transferase (AST) 46 U/L (15-37) H Alanine Aminotransferase (ALT) 29 U/L (12-78) Alkaline Phosphatase 103 U/L (46-116) Total Creatine Kinase 254 U/L (26-308) Creatine Kinase MB 3.2 NG/ML (0.0-3.6) Creatine Kinase MB Relative Index 1.2 Troponin I 0.012 ng/mL (0.000-0.056) Pro-B-Type Natriuretic Peptide 553 pg/mL (0-125) H Total Protein 6.4 G/DL (6.4-8.2) Albumin 2.7 G/DL (3.4-5.0) L Globulin 3.7 g/dL Albumin/Globulin Ratio 0.7 (1.0-2.7) L Lipase 241 U/L (73-393) EKG Diagnostic Results EKG Time: 20:22 EP Interpretation: NSR, rate 100, QTc 45, no acute ST elevations normal axis Rhythm Strip Diag. Results Rhythm Strip Time: 21:00 EP Interpretation: yes Rate: 88 Rhythm: NSR, no PVC's, no ectopy Chest X-Ray Diagnostic Results Chest X-Ray Diagnostic Results : Chest X-Ray Ordered: Yes # of Views/Limited/Complete: 1 View Indication: Shortness of Breath EP Interpretation: Yes Interpretation: no acute cardiopulmonary disease Impression: No acute disease Electronically Signed by: Aftab King Last Vital Signs Date Time Temp Pulse Resp B/P (MAP) Pulse Ox O2 Delivery O2 Flow Rate FiO2 05/20/19 20:23 104 40 28 05/20/19 20:22 100 Mechanical Ventilator 05/20/19 20:01 99.5 138/93 (108) Disposition: ADMITTED INPATIENT Condition: Serious Referrals: Gerber Shelton MD (PCP) Aftab King MD May 20, 2019 21:01
[2019-05-20 21:04] LABS: ALANINE AMINOTRANSFERASE 29 U/L (12-78); ALBUMIN 2.7 G/DL (3.4-5.0); ALBUMIN/GLOBULIN RATIO 0.7 (1.0-2.7); ALKALINE PHOSPHATASE 103 U/L (46-116); ASPARTATE AMINO TRANSFERASE 46 U/L (15-37); BILIRUBIN,TOTAL 1.1 MG/DL (0.2-1.0); CKMB 3.2 NG/ML (0.0-3.6); CREATINE KINASE 254 U/L (26-308); PHOSPHORUS 3.5 MG/DL (2.5-4.9)
[2019-05-20 21:05] LABS: BILIRUBIN,DIRECT 0.6 MG/DL (0.0-0.3)
[2019-05-20] MEDS ORDERED: PLAVIX75 MG GT (21:35)
[2019-05-20] MEDS ORDERED: ASPIR 8181 MG GT (21:35)
[2019-05-20] MEDS ORDERED: DILANTIN100 MG ORAL (21:35)
[2019-05-20] MEDS ORDERED: LAMICTAL100 MG GT (21:35)
--- NOTE | 2019-05-20 21:45 | NUR ---
ED Nurse Note: pt was brought upto sdu rm [id number] with monitor box via gurney accompanied by molding process technician, RT, and RN in stable condition. Report given to MAURICE Carrasco. belonging list signed.
[2019-05-20 22:00] VITALS: BP 129/69
--- NOTE | 2019-05-20 22:05 | NUR ---
NURSE NOTES: Received report from MAURICE Virk, pt. brought up from ER, pt. is non-verbal, A/O x's 0- crosscutter rolled glass placed, no signs or symptoms of acute cardiac or respiratory distress noted, bed alarm on, side rails up x's3 and safety brakes engaged, bed alarm on, side rails up x's3 and safety brakes engaged, side rails padded for seizure precautions- no seizure activity noted, pt. appears to be tolerating current vent settings well- AC 12, TV 500, Peep 5 and Fio2 of 28%- no distress noted, full body assessment done- skin intact, bed bath given and comfort measures provided, pt. oriented to room, safety measures continued, will continue with plan of care.
[2019-05-20 22:08] LABS: INR 1.4 (0.9-1.1)
--- NOTE | 2019-05-20 22:19 | NUR ---
NURSE NOTES: left message for DR. Shelton for admitting orders- awaiting for call back from doctor.
--- NOTE | 2019-05-20 23:06 | NUR ---
NURSE NOTES: 2nd message left for DR. Shelton for admitting orders- awaiting for call back from doctor.
--- NOTE | 2019-05-20 23:41 | NUR ---
NURSE NOTES: Spoke to engine house helper MAURICE Parker- will let me know pt. may be transferred to ICU.
--- NOTE | 2019-05-20 23:45 | NUR ---
NURSE NOTES: per DR. Shelton, to transfer new admit pt. to ICU- orders carried out. DR. Shelton- transferred to ICU to give RN admitting orders.
--- NOTE | 2019-05-20 23:59 | NUR ---
NURSE NOTES: pt. transferred to ICU- report given to Jarod RN- pt. remains stable and no signs of distress noted.
[2019-05-21] VITALS (25 sets, daily range): BP systolic 92–155; BP diastolic 37–104
--- NOTE | 2019-05-21 00:05 | NUR ---
NURSE NOTES: Received SBAR from Danilo RICHARDS. Patient is transfer from [facility] per Dr. Manning Orders. Patient is obtunded, does not track with eyes, is contracted at lower and upper extremities. Patient is non-verbal. Patient is treach dependent AC 14, 500tv, 28% FiO2 and peep of 5. Patient comes with MONIKA PICC from [facility]. All thress ports are working and dressing is dry and intact. Patient is seizure precautions. Safety measures are in place. Will continue to monitor.
--- NOTE | 2019-05-21 00:06 | NUR ---
NURSE NOTES: Received admission/transfer orders from Dr. Shelton.
--- NOTE | 2019-05-21 00:10 | NUR ---
NURSE NOTES: Patient noted to have ticks and or spontaneous jerks. MD is already aware of this. Patient is on Seizure precautions, side rails are padded. Patient noted to have Barroso catheter. Removed Barroso catheter and placed a condom catheter.
--- NOTE | 2019-05-21 02:00 | NUR ---
NURSE NOTES: Patient repositioned, cooling measures remains in effect. Patient suctioned and provided deep suction. No acute distress at this time. Patient is warm to touch. Vitals remains stable, patient continues to have spontaneous jerking mostly at lower extremity. Will continue to monitor.
--- NOTE | 2019-05-21 04:00 | NUR ---
NURSE NOTES: Patient temperature is 101.2, Tylenol 650mg via GT provided, cooling measures still in effect. Patient repositioned and given cool sponge bath. Blood drawn and sent to lab. Heels remain off loaded. Will continue to monitor.
[2019-05-21] MEDS: Acetaminophen 650mg/20.3ml GT PRN ×2 (04:04→11:11)
[2019-05-21 05:38] LABS: BASOPHILS % (AUTO) 1.3 % (0.0-2.0); EOSINOPHILS % (AUTO) 0.8 % (0.0-3.0); HEMATOCRIT 30.2 % (42.0-52.0); HEMOGLOBIN 10.2 G/DL (14.2-18.0); LYMPHOCYTES % (AUTO) 14.1 % (20.0-45.0); MEAN CORPUSCULAR VOLUME 101 FL (80-99); NEUTROPHILS % (AUTO) 75.8 % (45.0-75.0); PLATELET COUNT 175 K/UL (150-450); RED BLOOD COUNT 3.01 M/UL (4.70-6.10); RED CELL DISTRIBUTION WIDTH 12.5 % (11.6-14.8); WHITE BLOOD COUNT 9.1 K/UL (4.8-10.8)
--- NOTE | 2019-05-21 06:00 | NUR ---
NURSE NOTES: Patient continues to have low grade fevers, currently it it 100.9F, cooling measures are ongoing. Patient was repositioned and given oral care. Deep suction was provided. Cool bath given.
[2019-05-21 06:10] LABS: ANION GAP 8 mmol/L (5-15); BLOOD UREA NITROGEN 10 mg/dL (7-18); CALCIUM 8.1 MG/DL (8.5-10.1); CARBON DIOXIDE 27 MMOL/L (21-32); CHLORIDE 105 MMOL/L (98-107); CREATININE 0.8 MG/DL (0.55-1.30); POTASSIUM 3.6 MMOL/L (3.5-5.1); SODIUM 140 MMOL/L (136-145)
--- NOTE | 2019-05-21 07:25 | NUR ---
RESPIRATORY NOTE: Received pt on vent with current vent settings: AC 14-500ml-28% peep of 5. Pt is trach dependent with trach Portex cuffed size 7.0, secured with trach ties and trach guard. Pt is obtunded, unable to follow simple commands. Pt is not in resp distress or SOB. Bk rhonchi breath sounds heard upon auscultation, suctioned moderate amount of thick yellow crum secretion without incidents. Alarms are set and audible, vent is plugged into the red outlet, ambu bag and spare trach kit at bedside. Vent circuits and suction tubing are secured and out of the way. Will continue to monitor pt.
--- NOTE | 2019-05-21 07:27 | NUR ---
HAND-OFF: Report given to milly hernandez.
--- NOTE | 2019-05-21 07:28 | NUR ---
NURSE NOTES: Received patient from MAURICE Gudino. patient nonverbal with eyes closed at this time. patient does not respond to tactile or verbal stimuli. Patient opened one eye when temperature was taken but does not focus of track. patient had fever overnight. Patient admitted to ICU for sepsis and altered mental status and diantin toxicity. Patient has portex 7 trach to ventilator with setting of AC 14, tidal volume 500, FiO2 28%, and PEEP 5. Patient has an order for tube feeding with G tube present and asymptomatic. No Vital AF available on the unit. Will start tube feeding when formula available. Will follow up with dietary. patient has condom catheter in place at this time for incontinence. Patient had rahman upon admission. Rahman removed. Patient has not voided since rahman was removed around 1am according to senior administrative support RN. Will perform bladder scan and notify MD if needed. Patient is contracted with more severe contractures noted on the left side. Patient has right upper arm PICC line present prior to admission that is patent, asymptomatic, dressing intact, and running normal saline at 100mL/hr at this time. Patient has a serum magnesium of 1.4 from last night. It was not rechecked this morning and was not covered over night. Will ask Dr Shelton if he would like coverage when he rounds on the patient. Patient has order for param duplex to be done this morning. Will follow up. Patient bed in low position with bed alarm on and call light in reach at this time. Will continue to monitor temperature and dilantin level. Addendum: 05/21/19 at 0803 by Tahira Kaufman RN Temperature 99.8 at this time. Will continue to monitor. Tylenol given at 0404 for temp of 101. Cooling measures remain in place. oral care performed. Patient turned at this time.
[2019-05-21] MEDS ORDERED: Heparin 5000 units/ml inj SUBQ SCH (09:00)
[2019-05-21] MEDS: Aspirin Baby 81mg GT SCH (09:22)
[2019-05-21] MEDS: Ascorbic Acid 500mg tab GT SCH (09:23)
[2019-05-21] MEDS ORDERED: LORazepam Inj 2mg/ml 1ml IV PRN (09:30)
[2019-05-21] MEDS: Heparin 5000 units/ml inj SUBQ SCH ×2 (09:32→20:26)
--- NOTE | 2019-05-21 09:32 | Diagnostic Imaging Report ---
Indication: Cough Technique: One view of the chest Comparison: 05/03/2019 Findings: Again demonstrated is atelectasis or scarring at the left lateral lung base and possibly some pleural fluid. The heart is enlarged. Interim placement right arm PICC. Tracheostomy remains. The heart size is upper limits of normal Impression: Left lateral basilar atelectasis versus scarring, possible small pleural effusion No acute process otherwise
--- NOTE | 2019-05-21 10:00 | NUR ---
NURSE NOTES: Patient blood pressure 102/62, HR 90, SPO2 100%, RR 22, EtCO2 27. Patient mentation remains the same. Patient remains obtunded. Patient repositioned at this time. Will continue to monitor. Addendum: 05/21/19 at 2002 by Tahira Kaufman RN (late entry)
[2019-05-21] MEDS: Zoysn 3.37gm in NS 100ML IVPB SCH ×2 (10:56→18:22)
--- NOTE | 2019-05-21 12:00 | NUR ---
NURSE NOTES: (Late entry) Patient remains nonverbal with eyes closed at this time. patient does not respond to tactile or verbal stimuli. Patient has fever of 99.0 at this time. Tylenol given at 1111 when temp 100.5. Ventilator setting remain at AC 14, tidal volume 500, FiO2 28%, and PEEP 5. G tube patent and running vital AF at 30mL/hr at this time. Will monitor residual and increase to goal of 60mL as tolerated. Condom catheter remains in place and draining well at this time. Patient is contracted with more severe contractures noted on the left side. Pitting +3 edema noted in left arm. Right upper arm PICC line remains patent, asymptomatic, dressing intact, and running normal saline at 100mL/hr at this time. Patient has a serum magnesium of 1.4 and 1g Magnesium sulfate IV was given. param duplex was negative. Patient bed in low position with bed alarm on and call light in reach at this time. Will continue to monitor temperature. Patient cleaned, turned/repositioned, and oral care performed at this time. Addendum: 05/21/19 at 2004 by Tahira Kaufman RN Spoke with Dr Shelton. Updated him on patient condition. Received order for vancomyacin and zosyn IVPB pharmacy to dose in addition to repeat dilantin level in at 0400 on 05/22 and Ativan 1mg Q1Hr PRN for seizure activity. Patient having some twitching/jerking of his left side. Each time patient has one or two twitches and then stops. Will continue to monitor. All orders read back, verified, and entered at this time.
--- NOTE | 2019-05-21 13:07 | Diagnostic Imaging Report ---
APPROVED REPORT CPT Code: 46083 Present Symptoms Comments: Screening BILATERAL: Imaging reveals a patent deep venous system bilaterally. There is no evidence of thrombus within the common femoral, superficial femoral, or tibial segments. The greater saphenous veins are within normal limits. Doppler indicates normal spontaneous flow within these segments. The popliteal veins were not visualized due to both knee contractures.
--- NOTE | 2019-05-21 14:00 | NUR ---
NURSE NOTES: (late entry) Patient blood pressure 92/66, HR 84, SPO2 100%, RR 26, EtCO2 26. Patient mentation remains the same. Patient remains obtunded. Patient repositioned at this time. Will continue to monitor.
[2019-05-21] MEDS ORDERED: Vancomycin 1gm in D5W 275ml IVPB SCH (14:30)
--- NOTE | 2019-05-21 14:37 | NUR ---
RD ASSESSMENT & RECOMMENDATIONS SEE CARE ACTIVITY FOR COMPLETE ASSESSMENT DAILY ESTIMATED NEEDS: Needs based on Critical care, sepsis/ 62 kg 22-30kcal/kg kcals/kg 1364- 1860 total kcals 1.2-2 g protein/kg 74-124 g total protein 25-30 mL/kg 1550- 1860 total fluid mLs NUTRITION DIAGNOSIS: (1) Swallowing difficulty R/T respiratory status as evidenced by pt vent dep via trach, PEG dep. CURRENT TF:Vital 1.2 @ 60mL/hr x 24hrs ENTERAL NUTRITION RECOMMENDATIONS: Vital AF 1.2 @ 60ml/hr x 24 hours to provide 1440ml, 1728kcal, 108g pro, 1168ml free water * As medically able, rec to maintain current TF and rate to meet 100% est needs. * Flush per MD/ HOb over 30 degrees ADDITIONAL RECOMMENDATIONS: * TF recs as above * Daily calibrated bed scale weights 137 lbs per SNF (05/18/19) * Monitor lytes daily, replete as needed (Mg 1.4) * F/up w/ H&P * Monitor for dilantin meds, needs to alter TF recs
--- NOTE | 2019-05-21 15:15 | History and Physical Report ---
DATE OF ADMISSION: 05/20/2019 REASON FOR ADMISSION: Possible sepsis, tachycardia, unstable vital signs. HISTORY OF PRESENT ILLNESS: This is a 64-year-old male, who was recently discharged back to the shelter facility after tracheostomy, respiratory failure. The patient had levels checked, was noted to be Dilantin toxic and also was noted to be tachycardic. The patient was therefore transferred back to the acute setting. The patient with altered mental status, noted to be febrile, tachycardic, presently still febrile up to temperature of a 101.2. The patient was placed on antibiotics. T-max upon arrival to the emergency room was 102.4 with noted tachycardia as the patient also Dilantin toxic and therefore admitted for close monitoring and evaluation. The patient is unable to give much in the way of history. The patient was started on antibiotics and laboratories were obtained. PAST MEDICAL HISTORY: Notable for respiratory failure, tracheostomy, prior history of cardiopulmonary arrest, history of seizures, history of sepsis, history of renal disease, history of pneumonia, history of aspiration, history of multiple bouts of infection, history of DVT, and history of G-tube. MEDICATIONS: Reviewed. ALLERGIES: Reviewed. SOCIAL HISTORY: The patient resides at [facility]. Nonsmoker, nondrinker, bed-bound. REVIEW OF SYSTEMS: Otherwise, difficult to obtain due to the patient's present state. PHYSICAL EXAMINATION: GENERAL: An ill-appearing male, currently on a mechanical ventilation. VITAL SIGNS: T-max 102.4, currently 100.8, heart rate 92, respiratory rate 25, blood pressure 128/93, saturations 100%. HEENT: Negative. NECK: Supple. No adenopathy. The patient's tracheostomy midline. Carotids 2+. LUNGS: Coarse breath sounds. Moderate air entry. CARDIAC: Mildly tachycardic. No murmurs, rubs, or gallops. ABDOMEN: Soft, nontender, nondistended. G-tube in place. EXTREMITIES: No cyanosis or clubbing. There are some contractures. NEUROLOGIC: poor mental status. SKIN: Noted and reviewed. LABORATORY DATA: Reviewed. Albumin 2.7. Electrolytes are fairly normal. The patient's magnesium was 1.4. Liver enzymes mildly elevated. Blood gases reviewed, 7.47/33/114. CBC, white count 9.1, hemoglobin 10, platelets are 175. The Dilantin is still toxic at 37. IMPRESSION: 1. Dilantin toxicity. 2. Severe protein-calorie malnutrition. 3. Hypomagnesemia. 4. Respiratory failure. 5. Hypoxemia. 6. Probable sepsis. 7. Fevers. 8. Associated tachycardia. 9. Anemia. 10. History of DVT. RECOMMENDATIONS: Supportive care. Resume significant medications, IV antibiotics empirically, and monitor clinically. DVT prophylaxis and follow clinically. ID evaluation to assist, maintain care home medications, but hold Dilantin for now as the patient is toxic and will continue to follow clinically and recommend further changes and optimization. Gerber Shelton M.D. DR: CEASAR JOB#: [id number] CC: RICH
--- NOTE | 2019-05-21 16:00 | NUR ---
NURSE NOTES: (Late entry) Patient remains nonverbal with eyes closed at this time. patient does not respond to tactile or verbal stimuli. Patient has temp of 98.4 at this time. BP 114/54, HR 81, RR 22, SpO2 100%, EtCO2 26. Ventilator setting remain at AC 14, tidal volume 500, FiO2 28%, and PEEP 5. G tube patent and running vital AF at 45mL/hr at this time with no residual noted. Will monitor residual and increase to goal of 60mL as tolerated. Condom catheter remains in place and draining well at this time. Patient is contracted with more severe contractures noted on the left side. Pitting +3 edema noted in left arm. Right upper arm PICC line remains patent, asymptomatic, dressing intact, and running normal saline at 100mL/hr at this time. Patient bed in low position with bed alarm on and call light in reach at this time. Will continue to monitor temperature. Patient turned/repositioned and oral care performed at this time.
--- NOTE | 2019-05-21 16:23 | NUR ---
CASE MANAGEMENT:REVIEW 64 YR OLD MALE BIB[facility] FROM [facility] CC; FEVER 102 PMH:TRACH VENT SI: SEPSIS. AMS. 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
--- NOTE | 2019-05-21 18:00 | NUR ---
NURSE NOTES: (late entry) Patient blood pressure 92/66, HR 84, SPO2 100%, RR 26, EtCO2 26. Patient mentation remains the same. Patient remains obtunded. Patient repositioned at this time. Will continue to monitor. Patient appears to have bit his tongue. Bleeding appears to have stopped. Oral care performed. Will continue to monitor.
[2019-05-21] MEDS ORDERED: PHENYTOIN SODI100 MG GT (18:01)
[2019-05-21] MEDS ORDERED: TYLENOL325 MG GT (18:03)
[2019-05-21] MEDS ORDERED: CRANBERRY425 MG GT (18:05)
[2019-05-21] MEDS ORDERED: ALBUTEROL2.5 MG/3 M INH (18:05)
--- NOTE | 2019-05-21 19:30 | NUR ---
HAND-OFF: Report given to MAURICE Kiran. Patient Temp 98.6 at this time. No seizure activity noted. Patient appears to have bit his tongue. Oral care performed at this time. Endorsed to monitor and follow up.
--- NOTE | 2019-05-21 19:31 | NUR ---
NURSE NOTES: Received patient from Tahira Kaufman RN. Will continue plan of care.
--- NOTE | 2019-05-21 19:45 | Consultation ---
DATE OF CONSULTATION: 05/21/2019 INFECTIOUS DISEASE CONSULTATION CONSULTING PHYSICIAN: Placido Linares M.D. PRIMARY ATTENDING PHYSICIAN: Gerber Shelton M.D. This consult is for coverage of Dr. Marques. REASON FOR CONSULTATION: Sepsis. HISTORY OF PRESENT ILLNESS: This is a 64-year-old male, admitted last night with altered mental status. The patient has history of ventilator-dependent respiratory failure, not a source of history. He had a temperature of 102.4 in hospital, pulse rate of 102, respiratory rate of 40. PAST MEDICAL HISTORY: Significant for seizure disorder, encephalopathy, COPD, hypertension, ventilator-dependent respiratory failure. PAST SURGICAL HISTORY: Status post G-tube, status post tracheostomy. The patient came from care home with a PICC line. ALLERGIES: Allergic to codeine. MEDICATIONS: Vancomycin, Zosyn, sodium chloride, aspirin, Plavix, heparin, multivitamin, vitamin C, Keppra, lamotrigine, bisacodyl, Tylenol. SOCIAL HISTORY: Single, care home resident. According to previous hospitalization records, has history to alcohol and cocaine abuse in the past. REVIEW OF SYSTEMS: Unobtainable. PHYSICAL EXAMINATION: VITAL SIGNS: Temperature 100.9, pulse 89, respiratory rate is 31, blood pressure is 107/63. HEAD AND NECK: Status post tracheostomy. HEART: Normal rate, has a right arm PICC line. LUNGS: Decreased sounds especially in the left base as the patient is on ventilator. He has a lot of secretion in tracheostomy tube. EXTREMITIES: Has edema of hands bilaterally. NEUROLOGIC: Opens eyes. LABORATORY DATA: Sodium 140, potassium 3.6, chloride 105, bicarbonate 27, BUN 10, creatinine 0.8, glucose 87. WBC 9.1, hemoglobin 10.2, hematocrit 30.2, platelets is 175,000. UA showed rbc's of 30 to 40,. Phenytoin level was high 37. Bilirubin is 1.1, albumin is 2.7. Chest x-ray show left basilar atelectasis versus scarring. IMPRESSION: Sepsis with fever, tachycardia, and tachypnea. Source is unknown, having underlining infection is pneumonia or UTI. The patient has hematuria, has history of ventilator-dependent respiratory failure, seizure disorder, and chronic encephalopathy. RECOMMENDATIONS: We will continue with vancomycin and Zosyn. We will follow up the cultures . At the end of my exam, I thank Dr. Shelton for involving me in the care of this patient. Placido Linares M.D. DR: DONNA JOB#: [id number] CC: RICH
[2019-05-21] MEDS ORDERED: Dyna-Hex 2% Top Sol 2oz TOPIC SCH (20:00)
--- NOTE | 2019-05-21 20:00 | NUR ---
NURSE NOTES: Patient is obtunded, eyes open but does not track. Was endorsed that he will occasionally bit his lip and tongue. Vital signs are stable. Patient temp is 98.7F. On trach Portex 7 to vent with settings of AC: 14, TV: 500, FiO2: 28%, PEEP: 5, O2: 100%. Patient shows no pain or distress. GTube feeding increased to 55ml/hr (goal:60ml/hr); No residual. GTube is flushing well. Condom cath in tact and draining. Will continue plan of care.
--- NOTE | 2019-05-21 22:00 | NUR ---
NURSE NOTES: Patient is resting with eyes closed. Base line obtunded. Vital signs are stable. Repositioned. Will continue care.
[2019-05-22] VITALS (19 sets, daily range): BP systolic 110–167; BP diastolic 47–95
--- NOTE | 2019-05-22 | NUR ---
NURSE NOTES: Patient is resting with eyes closed, showing no signs of pain or distress. Eyes open to stimuli (when temp was taken). No fever; current temp 98.2F. No residual in GTube, tolerating well on feeding- increased to goal of 60ml/hr. Will continue plan of care.
--- NOTE | 2019-05-22 02:00 | NUR ---
NURSE NOTES: Patient's daughter Leisa called and asked for update; informed her that he is no longer having fevers and will call back in the morning for updates. Bed bath given. 1 BM. GTube dressing changed. Condom cath intact and draining well. All linens are changed. Oral care and suctioning provides. Patient repositioned.
[2019-05-22] MEDS: Zoysn 3.37gm in NS 100ML IVPB SCH ×2 (02:36→08:37)
[2019-05-22] MEDS ORDERED: Vancomycin 750mg/D5W 275ml IVPB SCH ×2 (03:00)
--- NOTE | 2019-05-22 04:00 | NUR ---
NURSE NOTES: Patient is stable. No fever, current temp: 98.7F. Patient remains obtunded. Oral care and suctioning provided and repositioned.
[2019-05-22 05:25] LABS: BASOPHILS % (AUTO) 0.7 % (0.0-2.0); EOSINOPHILS % (AUTO) 6.1 % (0.0-3.0); HEMATOCRIT 28.3 % (42.0-52.0); HEMOGLOBIN 9.5 G/DL (14.2-18.0); LYMPHOCYTES % (AUTO) 19.2 % (20.0-45.0); MEAN CORPUSCULAR VOLUME 101 FL (80-99); MONOCYTES % (AUTO) 8.8 % (1.0-10.0); NEUTROPHILS % (AUTO) 65.2 % (45.0-75.0); PLATELET COUNT 119 K/UL (150-450); RED BLOOD COUNT 2.79 M/UL (4.70-6.10); RED CELL DISTRIBUTION WIDTH 12.7 % (11.6-14.8)
[2019-05-22 05:58] LABS: ALANINE AMINOTRANSFERASE 27 U/L (12-78); ALBUMIN 2.2 G/DL (3.4-5.0); ALBUMIN/GLOBULIN RATIO 0.7 (1.0-2.7); ALKALINE PHOSPHATASE 90 U/L (46-116); ANION GAP 7 mmol/L (5-15); ASPARTATE AMINO TRANSFERASE 38 U/L (15-37); BILIRUBIN,TOTAL 0.5 MG/DL (0.2-1.0); BLOOD UREA NITROGEN 9 mg/dL (7-18); CALCIUM 7.3 MG/DL (8.5-10.1); CARBON DIOXIDE 27 MMOL/L (21-32); CHLORIDE 107 MMOL/L (98-107); CREATININE 0.7 MG/DL (0.55-1.30); POTASSIUM 3.1 MMOL/L (3.5-5.1); SODIUM 141 MMOL/L (136-145)
--- NOTE | 2019-05-22 06:53 | NUR ---
NURSE NOTES: Patient cleaned again and repositioned. Suctioning provided. Patient is stable.
--- NOTE | 2019-05-22 07:25 | NUR ---
HAND-OFF: Report given to MAURICE Ramírez.
--- NOTE | 2019-05-22 07:30 | NUR ---
RESPIRATORY NOTE: Received pt on vent with current vent settings: AC 14-500ml-28% peep of 5. Pt is vent dependent with trach Portex cuffed size 7.0, secured with trach ties and trach guard. Pt is resting in the bed, unable to follow commands, tachypneic RR 27bppm. Kb rhonchi breath sounds heard upon auscultation, suctioned moderate amount of thick brown/red/red speck/crum secretion without incidents. Alarms are set and audible, vent is plugged into the red outlet, ambu bag and spare trach kit at bedside. Vent circuits and suction tubing are secured and out of the way. No resp distress noted at this time. Will continue to monitor pt.
--- NOTE | 2019-05-22 08:00 | NUR ---
NURSE NOTES: Report received from Qiana RICHARDS.Noted to be tachypneic with no apparent acute distress and noted with low garde fever 99F. Cooling measure applied. Potassium replacement order 40meq via GT given by Dr Jimenez.Patient is a trach/vent dependant Portex 7 with current vent settings of AC 14, VT 500ml FiO2 28% and Peep of 5.Abdomen soft and non distended with bowel sounds present in all 4 quadrants. Bilateral lungs sounds diminished with some rhonchi. Noted with large amount clear secretion and suctioned as tolerated.Mouth care done,turned and repositioned for skin management.HOB elevated to prevent aspiration.GT placement checked and intact with no residual running Vital AF at 60cc.Tolerate well at this time.Condom cath in place and draining by gravity yellow-straw urine with no apparent sediment .Patient also noted with mouth bleeding and heparin held.Upon assessment noted pt has an internal wound left upper lip. Picture taken and care plan initiate. 3/4 Side rails up and pad for safety and seizure precaution.bed in low position and locked with bed alarm on.Call light within easy reach, will continue to monitor.
[2019-05-22] MEDS: Aspirin Baby 81mg GT SCH (08:37)
[2019-05-22] MEDS: Ascorbic Acid 500mg tab GT SCH (08:37)
[2019-05-22] MEDS: Heparin 5000 units/ml inj SUBQ SCH ×2 (08:38→20:34)
--- NOTE | 2019-05-22 09:15 | NUR ---
NURSE NOTES: Seen by Dr Shelton will follow up with new orders
--- NOTE | 2019-05-22 10:28 | NUR ---
NURSE NOTES: No neurological changed. Vital signs stable, turned and repositioned.HOB elevated at 35 degree to prevent aspiration.Order received from Dr Jimenez to transfer pt to [facility].Order noted and carried out.
--- NOTE | 2019-05-22 12:03 | NUR ---
NURSE NOTES: Vitals signs stabel, turned and repositioned for skin management
--- NOTE | 2019-05-22 12:52 | NUR ---
NURSE NOTES: Pt has only 60cc urine output since AM,bladder scan done , no retention 111cc residual noted.Will continue to monitor
--- NOTE | 2019-05-22 13:23 | Infectious Diseases Prog Note ---
Assessment/Plan Assessment/Plan IMPRESSION: Sepsis improving pneumonia hematuria, Ventilator-dependent respiratory failure, seizure disorder, a chronic encephalopathy. RECOMMENDATIONS: We will continue with vancomycin and Zosyn Will f/u cultures Subjective ROS Limited/Unobtainable: Yes Constitutional: Denies: fever Allergies: Coded Allergies: CODEINE (Verified Allergy, Unknown, 11/15/16) Objective Vital Signs Last 24 Hour Vital Signs Date Time Temp Pulse Resp B/P (MAP) Pulse Ox O2 Delivery O2 Flow Rate FiO2 05/22/19 12:28 84 18 131/67 100 Mechanical Ventilator 28 05/22/19 12:00 83 05/22/19 12:00 99.4 84 18 131/67 100 Mechanical Ventilator 28 05/22/19 12:00 28 05/22/19 11:30 88 18 28 05/22/19 11:00 86 26 131/67 100 Mechanical Ventilator 28 05/22/19 10:00 86 26 152/85 99 Mechanical Ventilator 28 05/22/19 09:09 89 29 28 05/22/19 09:00 89 26 161/80 99 Mechanical Ventilator 05/22/19 08:00 Mechanical Ventilator 05/22/19 08:00 99.6 88 26 167/92 100 Mechanical Ventilator 05/22/19 08:00 28 05/22/19 08:00 89 05/22/19 07:30 87 27 28 05/22/19 07:00 86 28 142/72 100 Mechanical Ventilator 05/22/19 06:00 81 19 110/47 100 Mechanical Ventilator 05/22/19 05:05 84 24 28 05/22/19 05:00 81 22 114/86 100 Mechanical Ventilator 05/22/19 04:03 84 05/22/19 04:00 Mechanical Ventilator 05/22/19 04:00 28 05/22/19 04:00 98.7 83 21 130/91 100 Mechanical Ventilator 05/22/19 03:00 83 21 148/63 100 Mechanical Ventilator 05/22/19 02:52 82 19 28 05/22/19 02:00 85 25 150/95 100 Mechanical Ventilator 05/22/19 01:09 79 26 28 05/22/19 01:00 86 25 147/83 100 Mechanical Ventilator 05/22/19 00:00 Mechanical Ventilator 05/22/19 00:00 98.2 87 23 159/57 100 Mechanical Ventilator 19 00:00 28 05/21/19 23:34 88 05/21/19 23:20 91 35 28 05/21/19 23:00 87 28 106/59 100 Mechanical Ventilator 28 05/21/19 22:00 87 24 146/103 100 Mechanical Ventilator 28 05/21/19 21:00 84 24 109/58 100 Mechanical Ventilator 28 05/21/19 20:46 84 32 28 05/21/19 20:00 Mechanical Ventilator 05/21/19 20:00 90 05/21/19 20:00 28 05/21/19 20:00 98.7 84 26 155/77 100 Mechanical Ventilator 28 05/21/19 19:05 78 16 28 05/21/19 19:00 98.6 85 25 126/69 100 Mechanical Ventilator 100 05/21/19 18:00 90 25 112/57 100 Mechanical Ventilator 100 05/21/19 17:00 79 27 114/54 100 Mechanical Ventilator 100 05/21/19 16:53 81 17 28 05/21/19 16:00 28 05/21/19 16:00 88 05/21/19 16:00 98.4 81 19 148/59 100 Mechanical Ventilator 100 05/21/19 16:00 Mechanical Ventilator 05/21/19 15:00 87 25 117/43 100 Mechanical Ventilator 100 05/21/19 14:40 91 35 28 05/21/19 14:00 84 26 92/66 100 Mechanical Ventilator 100 Height (Feet): 5 Height (Inches): 9.00 Weight (Pounds): 140 HEENT: status post trach Respiratory/Chest: lungs clear, other - on ventilator Cardiovascular: normal rate, other - right armPICC line Abdomen: soft, non tender, other - GT feeding Extremities: other - edema opf left arm Neurologic/Psychiatric: aphasia, other - opens eyes Microbiology Date/Time Source Procedure Growth Status 05/20/19 20:16 Blood Blood Culture - Preliminary NO GROWTH AFTER 24 HOURS Resulted 05/20/19 20:00 Blood Blood Culture - Preliminary NO GROWTH AFTER 24 HOURS Resulted 05/21/19 11:21 Stool Clostridium difficile Toxin Assay - Final Complete Laboratory Tests Test 05/22/19 04:00 White Blood Count 5.0 K/UL (4.8-10.8) Red Blood Count 2.79 M/UL (4.70-6.10) L Hemoglobin 9.5 G/DL (14.2-18.0) L Hematocrit 28.3 % (42.0-52.0) L Mean Corpuscular Volume 101 FL (80-99) H Mean Corpuscular Hemoglobin 33.9 PG (27.0-31.0) H Mean Corpuscular Hemoglobin Concent 33.5 G/DL (32.0-36.0) Red Cell Distribution Width 12.7 % (11.6-14.8) Platelet Count 119 K/UL (150-450) L Mean Platelet Volume 8.4 FL (6.5-10.1) Neutrophils (%) (Auto) 65.2 % (45.0-75.0) Lymphocytes (%) (Auto) 19.2 % (20.0-45.0) L Monocytes (%) (Auto) 8.8 % (1.0-10.0) Eosinophils (%) (Auto) 6.1 % (0.0-3.0) H Basophils (%) (Auto) 0.7 % (0.0-2.0) Sodium Level 141 MMOL/L (136-145) Potassium Level 3.1 MMOL/L (3.5-5.1) L Chloride Level 107 MMOL/L (98-107) Carbon Dioxide Level 27 MMOL/L (21-32) Anion Gap 7 mmol/L (5-15) Blood Urea Nitrogen 9 mg/dL (7-18) Creatinine 0.7 MG/DL (0.55-1.30) Estimat Glomerular Filtration Rate > 60 mL/min (>60) Glucose Level 120 MG/DL (74-106) H Calcium Level 7.3 MG/DL (8.5-10.1) L Total Bilirubin 0.5 MG/DL (0.2-1.0) Aspartate Amino Transf (AST/SGOT) 38 U/L (15-37) H Alanine Aminotransferase (ALT/SGPT) 27 U/L (12-78) Alkaline Phosphatase 90 U/L (46-116) Total Protein 5.3 G/DL (6.4-8.2) L Albumin 2.2 G/DL (3.4-5.0) L Globulin 3.1 g/dL Albumin/Globulin Ratio 0.7 (1.0-2.7) L Phenytoin (Dilantin) Level 29.8 ug/mL (10-20) H Current Medications Medications (Trade) Dose Ordered Sig/Romelia Route PRN Reason Start Time Stop Time Status Last Admin Dose Admin Acetaminophen (Tylenol) 650 mg EVERY 4 HOURS PRN GT Mild Pain/Temp > 100.5 05/21/19 00:45 06/20/19 00:44 05/21/19 11:11 Ascorbic Acid (Vitamin C) 500 mg DAILY GT 05/21/19 09:00 06/20/19 08:59 05/22/19 08:37 Aspirin (ASA) 81 mg DAILY GT 05/21/19 09:00 06/20/19 08:59 05/22/19 08:37 Bisacodyl (Dulcolax) 10 mg DAILY PRN RECTAL Constipation 05/21/19 08:30 06/20/19 08:29 Chlorhexidine Gluconate (Natalie-Hex 2%) 1 applic DAILY@2000 TOPIC 05/21/19 20:00 06/20/19 19:59 05/21/19 20:24 Clopidogrel Bisulfate (Plavix) 75 mg DAILY GT 05/21/19 09:00 06/20/19 08:59 05/22/19 08:37 Heparin Sodium (Porcine) (Heparin 5000 units/ml) 5,000 units EVERY 12 HOURS SUBQ 05/21/19 09:00 06/20/19 08:59 05/21/19 20:26 Lamotrigine (LaMICtal) 100 mg DAILY GT 05/21/19 09:00 06/20/19 08:59 05/22/19 08:38 Levetiracetam (Keppra) 1,000 mg Q12HR GT 05/21/19 09:00 06/20/19 08:59 05/22/19 08:37 Lorazepam (Ativan 2mg/ml 1ml) 1 mg Q1H PRN IV For Seizures 05/21/19 09:30 05/28/19 09:29 Multivitamins (Multivitamins) 1 tab DAILY GT 05/21/19 09:00 06/20/19 08:59 05/22/19 08:37 Piperacillin Sod/ Tazobactam Sod 3.375 gm/Sodium Chloride 110 ml @ 27.5 mls/hr Q8H IVPB 05/21/19 10:00 05/28/19 09:59 05/22/19 08:37 Sodium Chloride 1,000 ml @ 100 mls/hr Q10H IV 05/22/19 01:00 06/21/19 00:59 05/22/19 08:36 Vancomycin HCl (Vanco rx to dose) 1 ea DAILY PRN MISC Per rx protocol 05/21/19 09:15 06/20/19 09:14 Vancomycin HCl 750 mg/Dextrose 275 ml @ 183.333 mls/hr Q12H IVPB 05/22/19 03:00 05/27/19 02:59 05/22/19 02:36 Placido Linares MD May 22, 2019 13:23
--- NOTE | 2019-05-22 14:11 | NUR ---
NURSE NOTES: Patient remains obtunded. No significant change in condition.Turned and repositioned,HOB elevated to prevent aspiration.Awaiting room for transfer to [facility].
--- NOTE | 2019-05-22 14:40 | NUR ---
CASE MANAGEMENT:REVIEW 05/22/19 SI: SEPSIS. PNA. TRACH/VENT DEPENDENT DILANTIN TOXICITY 99.4 84 18 131/67 100% ON VENT SUPPORT H/H-9.5/28.3 K-3.1 IS: IV VANCOMYCIN Q12 IV ZOSYN Q8HRS IVF@100/HR : ICU STATUS DCP: FROM [facility] PLAN: DOWNGRADE TO STEP DOWN UNIT
--- NOTE | 2019-05-22 15:05 | NUR ---
NURSE NOTES: Received bedside report from MAURICE Ramírez.
--- NOTE | 2019-05-22 15:09 | NUR ---
HAND-OFF: Report given to MAURICE Henriquez.
[2019-05-22] MEDS ORDERED: LORazepam Inj 2mg/ml 1ml IV PRN (15:30)
--- NOTE | 2019-05-22 15:50 | NUR ---
NURSE NOTES: Received patient from ICU via hospital bed accompanied by RN and RT. Patient is obtunded, nonverbal. Trach-vent with settings AC 14, TV 500, FiO2 28%, PEEP 5; no respiratory distress noted at this time. GT intact and patent with feeding infusing at prescribed rate. HOB elevated. PICC line on right upper arm intact and patent. External catheter noted, draining well to gravity. SCD on bilateral lower extremities noted. Bed locked, alarmed, and in lowest position, padded side rails up x2, and call light left within reach. Will continue to monitor and plan of care.
[2019-05-22] MEDS ORDERED: Acetaminophen 650mg/20.3ml GT PRN (16:00)
--- NOTE | 2019-05-22 16:14 | Critical Care Progress Note ---
Assessment/Plan Assessment/Plan IMPRESSION: 1. Dilantin toxicity. 2. Severe protein-calorie malnutrition. 3. Hypomagnesemia. 4. Respiratory failure. 5. Hypoxemia. 6. Probable sepsis. 7. Fevers. 8. Associated tachycardia. 9. Anemia. 10. History of DVT. PLAN care noted iv antibiotics respiratory care vent as is monitor for change continue to monitor dilantin level on hold seizure precautions no wean suction PRN feeds elevated ICU care critical off load medications/laboratory data/nursing notes/ICU care reviewed in detail note reviewed and edited care discussed with RN and RT ICU time spent 35 minutes Critical Care - Subjective Interval Events: all care reviewed all meds noted in ICU ROS Limited/Unobtainable: Yes Condition: critical EKG Rhythm: Sinus Rhythm Residuals: minimal Tube Feeding Tolerated: yes I&O: Intake and Output 05/21/19 05/22/19 19:00 07:00 Intake Total 1999.312 ml 1752.290 ml Output Total 975 ml 900 ml Balance 1024.312 ml 852.290 ml Free Water 100 ml 60 ml IV Total 1599.312 ml 992.290 ml Tube Feeding 300 ml 700 ml Output Urine Total 975 ml 900 ml # Bowel Movements 4 4 Critical Care - Objective Last 24 Hour Vital Signs Date Time Temp Pulse Resp B/P (MAP) Pulse Ox O2 Delivery O2 Flow Rate FiO2 05/22/19 16:00 97.7 88 20 128/77 100 Mechanical Ventilator 05/22/19 15:09 85 21 28 05/22/19 15:00 89 20 120/51 100 Mechanical Ventilator 05/22/19 14:00 89 20 122/56 100 Mechanical Ventilator 05/22/19 13:25 85 23 28 05/22/19 13:00 89 20 135/64 100 Mechanical Ventilator 05/22/19 12:28 84 18 131/67 100 Mechanical Ventilator 05/22/19 12:00 83 05/22/19 12:00 Mechanical Ventilator 05/22/19 12:00 99.4 84 18 131/67 100 Mechanical Ventilator 05/22/19 12:00 28 05/22/19 11:30 88 18 28 05/22/19 11:00 86 26 131/67 100 Mechanical Ventilator 05/22/19 10:00 86 26 152/85 99 Mechanical Ventilator 05/22/19 09:09 89 29 28 05/22/19 09:00 89 26 161/80 99 Mechanical Ventilator 28 05/22/19 08:00 Mechanical Ventilator 05/22/19 08:00 99.6 88 26 167/92 100 Mechanical Ventilator 28 05/22/19 08:00 28 05/22/19 08:00 89 05/22/19 07:30 87 27 28 05/22/19 07:00 86 28 142/72 100 Mechanical Ventilator 28 05/22/19 06:00 81 19 110/47 100 Mechanical Ventilator 28 05/22/19 05:05 84 24 28 05/22/19 05:00 81 22 114/86 100 Mechanical Ventilator 28 05/22/19 04:03 84 05/22/19 04:00 Mechanical Ventilator 05/22/19 04:00 28 05/22/19 04:00 98.7 83 21 130/91 100 Mechanical Ventilator 28 05/22/19 03:00 83 21 148/63 100 Mechanical Ventilator 28 05/22/19 02:52 82 19 28 05/22/19 02:00 85 25 150/95 100 Mechanical Ventilator 28 05/22/19 01:09 79 26 28 05/22/19 01:00 86 25 147/83 100 Mechanical Ventilator 28 05/22/19 00:00 Mechanical Ventilator 05/22/19 00:00 98.2 87 23 159/57 100 Mechanical Ventilator 28 05/22/19 00:00 28 05/21/19 23:34 88 05/21/19 23:20 91 35 28 05/21/19 23:00 87 28 106/59 100 Mechanical Ventilator 28 05/21/19 22:00 87 24 146/103 100 Mechanical Ventilator 28 05/21/19 21:00 84 24 109/58 100 Mechanical Ventilator 28 05/21/19 20:46 84 32 28 05/21/19 20:00 Mechanical Ventilator 05/21/19 20:00 90 05/21/19 20:00 28 05/21/19 20:00 98.7 84 26 155/77 100 Mechanical Ventilator 28 05/21/19 19:05 78 16 28 05/21/19 19:00 98.6 85 25 126/69 100 Mechanical Ventilator 100 05/21/19 18:00 90 25 112/57 100 Mechanical Ventilator 100 05/21/19 17:00 79 27 114/54 100 Mechanical Ventilator 100 05/21/19 16:53 81 17 28 Labs: Labs Test 10/9/19 20:10 05/20/19 20:13 05/20/19 20:16 05/20/19 20:40 Arterial Blood pH 7.473 (7.350-7.450) Arterial Blood Partial Pressure CO2 33.7 mmHg (35.0-45.0) Arterial Blood Partial Pressure O2 114.2 mmHg (75.0-100.0) Arterial Blood HCO3 24.1 mmol/L (22.0-26.0) Arterial Blood Oxygen Saturation 97.8 % (95-100) Arterial Blood Base Excess 0.9 (-2-2) Aston Test Positive Urine Color Yellow Urine Appearance Clear Urine pH 7 (4.5-8.0) Urine Specific Spencer 1.010 (1.005-1.035) Urine Protein 1+ (NEGATIVE) Urine Glucose (UA) Negative (NEGATIVE) Urine Ketones Negative (NEGATIVE) Urine Blood 5+ (NEGATIVE) Urine Nitrite Negative (NEGATIVE) Urine Bilirubin Negative (NEGATIVE) Urine Urobilinogen 4 MG/DL (0.0-1.0) Urine Leukocyte Esterase Negative (NEGATIVE) Urine RBC 30-40 /HPF (0 - 0) Urine WBC 0-2 /HPF (0 - 0) Urine Squamous Epithelial Cells Occasional /LPF Urine Bacteria None /HPF (NONE) White Blood Count 7.3 K/UL (4.8-10.8) Red Blood Count 3.41 M/UL (4.70-6.10) Hemoglobin 11.7 G/DL (14.2-18.0) Hematocrit 33.7 % (42.0-52.0) Mean Corpuscular Volume 99 FL (80-99) Mean Corpuscular Hemoglobin 34.1 PG (27.0-31.0) Mean Corpuscular Hemoglobin Concent 34.6 G/DL (32.0-36.0) Red Cell Distribution Width 11.6 % (11.6-14.8) Platelet Count 210 K/UL (150-450) Mean Platelet Volume 8.7 FL (6.5-10.1) Neutrophils (%) (Auto) 73.9 % (45.0-75.0) Lymphocytes (%) (Auto) 16.6 % (20.0-45.0) Monocytes (%) (Auto) 6.8 % (1.0-10.0) Eosinophils (%) (Auto) 0.1 % (0.0-3.0) Basophils (%) (Auto) 2.5 % (0.0-2.0) Sodium Level 132 MMOL/L (136-145) Potassium Level 3.6 MMOL/L (3.5-5.1) Chloride Level 98 MMOL/L (98-107) Carbon Dioxide Level 26 MMOL/L (21-32) Anion Gap 8 mmol/L (5-15) Blood Urea Nitrogen 13 mg/dL (7-18) Creatinine 1.1 MG/DL (0.55-1.30) Estimat Glomerular Filtration Rate > 60 mL/min (>60) Glucose Level 220 MG/DL (74-106) Lactic Acid Level 1.60 mmol/L (0.4-2.0) Calcium Level 8.5 MG/DL (8.5-10.1) Phosphorus Level 3.5 MG/DL (2.5-4.9) Magnesium Level 1.4 MG/DL (1.8-2.4) Total Bilirubin 1.1 MG/DL (0.2-1.0) Direct Bilirubin 0.6 MG/DL (0.0-0.3) Aspartate Amino Transf (AST/SGOT) 46 U/L (15-37) Alanine Aminotransferase (ALT/SGPT) 29 U/L (12-78) Alkaline Phosphatase 103 U/L (46-116) Total Creatine Kinase 254 U/L (26-308) Creatine Kinase MB 3.2 NG/ML (0.0-3.6) Creatine Kinase MB Relative Index 1.2 Troponin I 0.012 ng/mL (0.000-0.056) Pro-B-Type Natriuretic Peptide 553 pg/mL (0-125) Total Protein 6.4 G/DL (6.4-8.2) Albumin 2.7 G/DL (3.4-5.0) Globulin 3.7 g/dL Albumin/Globulin Ratio 0.7 (1.0-2.7) Lipase 241 U/L (73-393) Phenytoin (Dilantin) Level 37.9 ug/mL (10-20) Prothrombin Time 15.0 SEC (9.30-11.50) Prothromb Time International Ratio 1.4 (0.9-1.1) Activated Partial Thromboplast Time 51 SEC (23-33) Test 05/21/19 04:00 05/22/19 04:00 White Blood Count 9.1 K/UL (4.8-10.8) 5.0 K/UL (4.8-10.8) Red Blood Count 3.01 M/UL (4.70-6.10) 2.79 M/UL (4.70-6.10) Hemoglobin 10.2 G/DL (14.2-18.0) 9.5 G/DL (14.2-18.0) Hematocrit 30.2 % (42.0-52.0) 28.3 % (42.0-52.0) Mean Corpuscular Volume 101 FL (80-99) 101 FL (80-99) Mean Corpuscular Hemoglobin 33.8 PG (27.0-31.0) 33.9 PG (27.0-31.0) Mean Corpuscular Hemoglobin Concent 33.7 G/DL (32.0-36.0) 33.5 G/DL (32.0-36.0) Red Cell Distribution Width 12.5 % (11.6-14.8) 12.7 % (11.6-14.8) Platelet Count 175 K/UL (150-450) 119 K/UL (150-450) Mean Platelet Volume 8.7 FL (6.5-10.1) 8.4 FL (6.5-10.1) Neutrophils (%) (Auto) 75.8 % (45.0-75.0) 65.2 % (45.0-75.0) Lymphocytes (%) (Auto) 14.1 % (20.0-45.0) 19.2 % (20.0-45.0) Monocytes (%) (Auto) 8.0 % (1.0-10.0) 8.8 % (1.0-10.0) Eosinophils (%) (Auto) 0.8 % (0.0-3.0) 6.1 % (0.0-3.0) Basophils (%) (Auto) 1.3 % (0.0-2.0) 0.7 % (0.0-2.0) Sodium Level 140 MMOL/L (136-145) 141 MMOL/L (136-145) Potassium Level 3.6 MMOL/L (3.5-5.1) 3.1 MMOL/L (3.5-5.1) Chloride Level 105 MMOL/L (98-107) 107 MMOL/L (98-107) Carbon Dioxide Level 27 MMOL/L (21-32) 27 MMOL/L (21-32) Anion Gap 8 mmol/L (5-15) 7 mmol/L (5-15) Blood Urea Nitrogen 10 mg/dL (7-18) 9 mg/dL (7-18) Creatinine 0.8 MG/DL (0.55-1.30) 0.7 MG/DL (0.55-1.30) Estimat Glomerular Filtration Rate > 60 mL/min (>60) > 60 mL/min (>60) Glucose Level 87 MG/DL (74-106) 120 MG/DL (74-106) Calcium Level 8.1 MG/DL (8.5-10.1) 7.3 MG/DL (8.5-10.1) Phenytoin (Dilantin) Level 37.0 ug/mL (10-20) 29.8 ug/mL (10-20) Total Bilirubin 0.5 MG/DL (0.2-1.0) Aspartate Amino Transf (AST/SGOT) 38 U/L (15-37) Alanine Aminotransferase (ALT/SGPT) 27 U/L (12-78) Alkaline Phosphatase 90 U/L (46-116) Total Protein 5.3 G/DL (6.4-8.2) Albumin 2.2 G/DL (3.4-5.0) Globulin 3.1 g/dL Albumin/Globulin Ratio 0.7 (1.0-2.7) Objective: GENERAL: An ill-appearing male, currently on a mechanical ventilation. HEENT: Negative. NECK: Supple. No adenopathy. The patient's tracheostomy midline. Carotids 2+. LUNGS: Coarse breath sounds. Moderate air entry. CARDIAC: Mildly tachycardic. No murmurs, rubs, or gallops. ABDOMEN: Soft, nontender, nondistended. G-tube in place. EXTREMITIES: No cyanosis or clubbing. There are some contractures. NEUROLOGIC: poor mental status. SKIN: Noted and reviewed. Micro: Microbiology Date/Time Source Procedure Growth Status 05/20/19 20:16 Blood Blood Culture - Preliminary NO GROWTH AFTER 24 HOURS Resulted 05/20/19 20:00 Blood Blood Culture - Preliminary NO GROWTH AFTER 24 HOURS Resulted 05/21/19 11:21 Stool Clostridium difficile Toxin Assay - Final Complete Gerber Shelton MD May 22, 2019 16:14
--- NOTE | 2019-05-22 16:30 | General Progress Note ---
Assessment/Plan Problem List: (1) Dilantin toxicity ICD Codes: T42.0X1A - Poisoning by hydantoin derivatives, accidental ( unintentional), initial encounter SNOMED: 28517594 (2) Respiratory failure ICD Codes: J96.90 - Respiratory failure, unspecified, unspecified whether with hypoxia or hypercapnia SNOMED: 167835673 (3) Epileptic seizure, generalized ICD Codes: G40.309 - Generalized idiopathic epilepsy and epileptic syndromes, not intractable, without status epilepticus SNOMED: 38287650 (4) Acute on chronic respiratory failure ICD Codes: J96.20 - Acute and chronic respiratory failure, unspecified whether with hypoxia or hypercapnia SNOMED: 33959789, 59191951 (5) Anoxic encephalopathy syndrome ICD Codes: G93.1 - Anoxic brain damage, not elsewhere classified SNOMED: 595794471 (6) Altered mental status ICD Codes: R41.82 - Altered mental status, unspecified SNOMED: 199608081 Qualifiers: Qualified Codes: R41.82 - Altered mental status, unspecified Status: stable, progressing Assessment/Plan: holding dilantin monitor dilantin level vent support resp rx gt feeds vent support abx- follow up culltures turn q2 Subjective ROS Limited/Unobtainable: Yes Constitutional: Reports: malaise, weakness HEENT: Reports: no symptoms Cardiovascular: Reports: edema Respiratory: Reports: shortness of breath, sputum Gastrointestinal/Abdominal: Reports: difficulty swallowing Genitourinary: Reports: no symptoms Neurologic/Psychiatric: Reports: pre-existing deficit, seizure Endocrine: Reports: no symptoms Hematologic/Lymphatic: Reports: anemia Allergies: Coded Allergies: CODEINE (Verified Allergy, Unknown, 11/15/16) All Systems: reviewed and negative except above Subjective on the vent. poorly responsive at baseline. Dilantin trending down. no fevers. on abx. cultures negative so far Objective Last 24 Hour Vital Signs Date Time Temp Pulse Resp B/P (MAP) Pulse Ox O2 Delivery O2 Flow Rate FiO2 05/22/19 16:00 97.7 88 20 128/77 100 Mechanical Ventilator 05/22/19 15:09 85 21 28 05/22/19 15:00 89 20 120/51 100 Mechanical Ventilator 05/22/19 14:00 89 20 122/56 100 Mechanical Ventilator 05/22/19 13:25 85 23 28 05/22/19 13:00 89 20 135/64 100 Mechanical Ventilator 28 05/22/19 12:28 84 18 131/67 100 Mechanical Ventilator 28 05/22/19 12:00 83 05/22/19 12:00 Mechanical Ventilator 05/22/19 12:00 99.4 84 18 131/67 100 Mechanical Ventilator 28 05/22/19 12:00 28 05/22/19 11:30 88 18 28 05/22/19 11:00 86 26 131/67 100 Mechanical Ventilator 28 05/22/19 10:00 86 26 152/85 99 Mechanical Ventilator 28 05/22/19 09:09 89 29 28 05/22/19 09:00 89 26 161/80 99 Mechanical Ventilator 28 05/22/19 08:00 Mechanical Ventilator 05/22/19 08:00 99.6 88 26 167/92 100 Mechanical Ventilator 28 05/22/19 08:00 28 05/22/19 08:00 89 05/22/19 07:30 87 27 28 05/22/19 07:00 86 28 142/72 100 Mechanical Ventilator 28 05/22/19 06:00 81 19 110/47 100 Mechanical Ventilator 28 05/22/19 05:05 84 24 28 05/22/19 05:00 81 22 114/86 100 Mechanical Ventilator 28 05/22/19 04:03 84 05/22/19 04:00 Mechanical Ventilator 05/22/19 04:00 28 05/22/19 04:00 98.7 83 21 130/91 100 Mechanical Ventilator 28 05/22/19 03:00 83 21 148/63 100 Mechanical Ventilator 28 05/22/19 02:52 82 19 28 05/22/19 02:00 85 25 150/95 100 Mechanical Ventilator 28 05/22/19 01:09 79 26 28 05/22/19 01:00 86 25 147/83 100 Mechanical Ventilator 28 05/22/19 00:00 Mechanical Ventilator 05/22/19 00:00 98.2 87 23 159/57 100 Mechanical Ventilator 28 05/22/19 00:00 28 05/21/19 23:34 88 05/21/19 23:20 91 35 28 05/21/19 23:00 87 28 106/59 100 Mechanical Ventilator 28 05/21/19 22:00 87 24 146/103 100 Mechanical Ventilator 28 05/21/19 21:00 84 24 109/58 100 Mechanical Ventilator 28 05/21/19 20:46 84 32 28 05/21/19 20:00 Mechanical Ventilator 05/21/19 20:00 90 05/21/19 20:00 28 05/21/19 20:00 98.7 84 26 155/77 100 Mechanical Ventilator 28 05/21/19 19:05 78 16 28 05/21/19 19:00 98.6 85 25 126/69 100 Mechanical Ventilator 100 05/21/19 18:00 90 25 112/57 100 Mechanical Ventilator 100 05/21/19 17:00 79 27 114/54 100 Mechanical Ventilator 100 05/21/19 16:53 81 17 28 Intake and Output 05/21/19 05/22/19 19:00 07:00 Intake Total 1999.312 ml 1752.290 ml Output Total 975 ml 900 ml Balance 1024.312 ml 852.290 ml Free Water 100 ml 60 ml IV Total 1599.312 ml 992.290 ml Tube Feeding 300 ml 700 ml Output Urine Total 975 ml 900 ml # Bowel Movements 4 4 Laboratory Tests 05/22/19 04:00: White Blood Count 5.0, Red Blood Count 2.79L, Hemoglobin 9.5L, Hematocrit 28.3L , Mean Corpuscular Volume 101H, Mean Corpuscular Hemoglobin 33.9H, Mean Corpuscular Hemoglobin Concent 33.5, Red Cell Distribution Width 12.7, Platelet Count 119L, Mean Platelet Volume 8.4, Neutrophils (%) (Auto) 65.2, Lymphocytes ( %) (Auto) 19.2L, Monocytes (%) (Auto) 8.8, Eosinophils (%) (Auto) 6.1H, Basophils (%) (Auto) 0.7, Sodium Level 141, Potassium Level 3.1L, Chloride Level 107, Carbon Dioxide Level 27, Anion Gap 7, Blood Urea Nitrogen 9, Creatinine 0.7, Estimat Glomerular Filtration Rate > 60, Glucose Level 120H, Calcium Level 7.3L, Total Bilirubin 0.5, Aspartate Amino Transf (AST/SGOT) 38H, Alanine Aminotransferase (ALT/SGPT) 27, Alkaline Phosphatase 90, Total Protein 5.3L, Albumin 2.2L, Globulin 3.1, Albumin/Globulin Ratio 0.7L, Phenytoin ( Dilantin) Level 29.8H Height (Feet): 5 Height (Inches): 9.00 Weight (Pounds): 140 General Appearance: WD/WN, lethargic, confused Neck: supple Cardiovascular: regular rhythm Respiratory/Chest: rhonchi - bilaterally Abdomen: normal bowel sounds, non tender, soft, no organomegaly Neurologic: disoriented, unresponsive, aphasia Nathaniel Jimenez MD May 22, 2019 16:30
--- NOTE | 2019-05-22 17:11 | NUR ---
NURSE NOTES: Dr Shelton made aware inner wound upper lip,care plan and wound care consult initiated
--- NOTE | 2019-05-22 17:15 | NUR ---
NURSE NOTES: Spoke with Indy (daughter) and notified regarding patient's transfer to SDU.
[2019-05-22] MEDS: Piperacillin/Tazobactam 3.375 GM in NS 110 ML IVPB SCH (17:50)
--- NOTE | 2019-05-22 19:23 | NUR ---
HAND-OFF: Report given to Susan Ascencio RN. Patient in stable condition.
--- NOTE | 2019-05-22 20:10 | NUR ---
NURSE NOTES: Received patient from MAURICE Pichardo. patient is observed in bed, obtunded, unable to make needs known. no s/sx of pain noted at this time. vent to trach settings are as follows: Portex: 7, AC: 14, TV: 500, FiO2: 28%, PEEP: 5. tolerating well, saturating at 100%, no s/sx of respiratory distress noted at this time. G-tube site is patent and intact, running Vital AF at 60 cc/hr. HOB elevated, no residual noted. skin alterations noted. PICC line on MONIKA noted, patent, running NS at 100 cc/hr; dressing dry and intact. Condom catheter in place, patent and draining well. SCDs applied to lower extremities. bed in lowest position and locked, padded siderails up X3, call light within reach. will continue to monitor.
[2019-05-22] MEDS: Dyna-Hex 2% Top Sol 2oz TOPIC SCH (20:33)
[2019-05-23] VITALS: BP 154/87
[2019-05-23] MEDS: Piperacillin/Tazobactam 3.375 GM in NS 110 ML IVPB SCH ×3 (02:24→18:01)
[2019-05-23] MEDS: Vancomycin 750 MG in D5W 275 ML IVPB SCH ×3 (03:22→22:06)
[2019-05-23 04:00] VITALS: BP 103/70
[2019-05-23 06:54] LABS: ALANINE AMINOTRANSFERASE 23 U/L (12-78); ALBUMIN 1.9 G/DL (3.4-5.0); ALBUMIN/GLOBULIN RATIO 0.6 (1.0-2.7); ALKALINE PHOSPHATASE 76 U/L (46-116); ANION GAP 7 mmol/L (5-15); ASPARTATE AMINO TRANSFERASE 33 U/L (15-37); BILIRUBIN,TOTAL 0.5 MG/DL (0.2-1.0); BLOOD UREA NITROGEN 10 mg/dL (7-18); CARBON DIOXIDE 25 MMOL/L (21-32); CHLORIDE 111 MMOL/L (98-107); CREATININE 0.7 MG/DL (0.55-1.30); POTASSIUM 3.1 MMOL/L (3.5-5.1); SODIUM 143 MMOL/L (136-145)
--- NOTE | 2019-05-23 07:30 | NUR ---
NURSE NOTES: Received report from MAURICE Davis. Patient is resting in bed, in stable condition. No s/sx of SOB, breathing is even and unlabored, on vent settings as ordered. Observed no presence of pain or discomfort at this time. Bed is in lowest position, brakes engaged. Call light is kept within easy reach. Will continue to monitor patient.
--- NOTE | 2019-05-23 07:40 | NUR ---
HAND-OFF: Report given to Rosa Colvin RN. patient is in stable condition. endorsed plan of care.
[2019-05-23 08:00] VITALS: BP 103/60
--- NOTE | 2019-05-23 08:48 | General Progress Note ---
Assessment/Plan Problem List: (1) Dilantin toxicity ICD Codes: T42.0X1A - Poisoning by hydantoin derivatives, accidental ( unintentional), initial encounter SNOMED: 40669144 (2) Respiratory failure ICD Codes: J96.90 - Respiratory failure, unspecified, unspecified whether with hypoxia or hypercapnia SNOMED: 628868076 (3) Epileptic seizure, generalized ICD Codes: G40.309 - Generalized idiopathic epilepsy and epileptic syndromes, not intractable, without status epilepticus SNOMED: 95347817 (4) Acute on chronic respiratory failure ICD Codes: J96.20 - Acute and chronic respiratory failure, unspecified whether with hypoxia or hypercapnia SNOMED: 29681314, 24375080 (5) Anoxic encephalopathy syndrome ICD Codes: G93.1 - Anoxic brain damage, not elsewhere classified SNOMED: 679059157 (6) Altered mental status ICD Codes: R41.82 - Altered mental status, unspecified SNOMED: 705308711 Qualifiers: Qualified Codes: R41.82 - Altered mental status, unspecified Status: stable, progressing Assessment/Plan: holding dilantin monitor dilantin level vent support resp rx gt feeds vent support abx- follow up culltures turn q2 Subjective ROS Limited/Unobtainable: Yes Constitutional: Reports: malaise, weakness HEENT: Reports: no symptoms Cardiovascular: Reports: no symptoms Respiratory: Reports: no symptoms Gastrointestinal/Abdominal: Reports: difficulty swallowing Genitourinary: Reports: no symptoms Neurologic/Psychiatric: Reports: pre-existing deficit, seizure Endocrine: Reports: no symptoms Hematologic/Lymphatic: Reports: no symptoms Allergies: Coded Allergies: CODEINE (Verified Allergy, Unknown, 11/15/16) All Systems: reviewed and negative except above Subjective on the vent. poorly responsive at baseline. Dilantin trending down. no fevers. on abx. cultures negative so far Objective Last 24 Hour Vital Signs Date Time Temp Pulse Resp B/P (MAP) Pulse Ox O2 Delivery O2 Flow Rate FiO2 05/23/19 07:09 81 17 28 05/23/19 05:07 80 17 28 05/23/19 04:00 98.0 83 21 103/70 100 Mechanical Ventilator 28 05/23/19 04:00 Mechanical Ventilator 05/23/19 04:00 28 05/23/19 04:00 83 05/23/19 03:00 85 20 28 05/23/19 01:04 92 27 28 05/23/19 00:00 28 05/23/19 00:00 98.6 90 26 154/87 100 Mechanical Ventilator 28 05/23/19 00:00 88 05/23/19 00:00 Mechanical Ventilator 05/22/19 23:04 89 27 28 05/22/19 21:06 90 30 28 05/22/19 20:00 98.7 92 28 155/86 100 Mechanical Ventilator 28 05/22/19 20:00 Mechanical Ventilator 05/22/19 20:00 28 05/22/19 20:00 92 05/22/19 18:59 91 28 28 05/22/19 17:10 84 17 28 05/22/19 16:12 88 05/22/19 16:00 Mechanical Ventilator 05/22/19 16:00 97.7 88 20 128/77 100 Mechanical Ventilator 28 05/22/19 16:00 28 05/22/19 15:09 85 21 28 05/22/19 15:00 89 20 120/51 100 Mechanical Ventilator 28 05/22/19 14:00 89 20 122/56 100 Mechanical Ventilator 28 05/22/19 13:25 85 23 28 05/22/19 13:00 89 20 135/64 100 Mechanical Ventilator 28 05/22/19 12:28 84 18 131/67 100 Mechanical Ventilator 28 05/22/19 12:00 83 05/22/19 12:00 Mechanical Ventilator 05/22/19 12:00 99.4 84 18 131/67 100 Mechanical Ventilator 28 05/22/19 12:00 28 05/22/19 11:30 88 18 28 05/22/19 11:00 86 26 131/67 100 Mechanical Ventilator 28 05/22/19 10:00 86 26 152/85 99 Mechanical Ventilator 28 05/22/19 09:09 89 29 28 05/22/19 09:00 89 26 161/80 99 Mechanical Ventilator 28 Intake and Output 05/22/19 05/23/19 18:59 06:59 Intake Total 1837.61188 ml 2465.525 ml Output Total 260 ml 200 ml Balance 1577.25782 ml 2265.525 ml Free Water 180 ml 100 ml IV Total 937.32595 ml 1645.525 ml Tube Feeding 720 ml 720 ml Output Urine Total 260 ml 200 ml # Bowel Movements 3 1 Laboratory Tests 05/23/19 04:45: Sodium Level 143, Potassium Level 3.1L, Chloride Level 111H, Carbon Dioxide Level 25, Anion Gap 7, Blood Urea Nitrogen 10, Creatinine 0.7, Estimat Glomerular Filtration Rate > 60, Glucose Level 114H, Calcium Level 8.0L, Total Bilirubin 0.5, Aspartate Amino Transf (AST/SGOT) 33, Alanine Aminotransferase ( ALT/SGPT) 23, Alkaline Phosphatase 76, Total Protein 4.9L, Albumin 1.9L, Globulin 3.0, Albumin/Globulin Ratio 0.6L, Phenytoin (Dilantin) Level 19.1 Height (Feet): 5 Height (Inches): 9.00 Weight (Pounds): 140 General Appearance: WD/WN, lethargic, confused Neck: supple Cardiovascular: regular rhythm Respiratory/Chest: chest wall non-tender, lungs clear, normal breath sounds, no respiratory distress Abdomen: normal bowel sounds, non tender, soft, no organomegaly Edema: no edema noted Arm (L), no edema noted Arm (R), no edema noted Leg (L), no edema noted Leg (R), no edema noted Pedal (L), no edema noted Pedal (R), no edema noted Generalized Nathaniel Jimenez MD May 23, 2019 08:48
[2019-05-23] MEDS: Heparin 5000 units/ml inj SUBQ SCH ×2 (08:50→20:17)
[2019-05-23] MEDS: Ascorbic Acid 500mg tab GT SCH (09:02)
[2019-05-23] MEDS: Aspirin Baby 81mg GT SCH (09:06)
--- NOTE | 2019-05-23 09:26 | Critical Care Progress Note ---
Assessment/Plan Assessment/Plan IMPRESSION: 1. Dilantin toxicity. 2. Severe protein-calorie malnutrition. 3. Hypomagnesemia. 4. Respiratory failure. 5. Hypoxemia. 6. Probable sepsis. 7. Fevers. 8. Associated tachycardia. 9. Anemia. 10. History of DVT. PLAN care noted and reviewed iv antibiotics and cultures noted respiratory care vent as is; no wean for now monitor for change continue to monitor dilantin level and hold on keppra seizure precautions suction PRN feeds elevate head off load medications/laboratory data/nursing notes reviewed in detail note reviewed and edited care discussed with RN and RT Critical Care - Subjective Interval Events: care noted moved to KAMALJIT on vent poor LOC ROS Limited/Unobtainable: Yes Condition: stable EKG Rhythm: Sinus Rhythm Residuals: minimal Tube Feeding Tolerated: yes I&O: Intake and Output 05/22/19 05/23/19 19:00 07:00 Intake Total 1937.45073 ml 2465.525 ml Output Total 260 ml 100 ml Balance 1677.65301 ml 2365.525 ml Free Water 180 ml 100 ml IV Total 1037.78991 ml 1645.525 ml Tube Feeding 720 ml 720 ml Output Urine Total 260 ml 100 ml # Bowel Movements 2 1 Critical Care - Objective Last 24 Hour Vital Signs Date Time Temp Pulse Resp B/P (MAP) Pulse Ox O2 Delivery O2 Flow Rate FiO2 05/23/19 09:20 83 21 28 05/23/19 08:00 98.5 80 20 103/60 100 Mechanical Ventilator 05/23/19 07:09 81 17 28 05/23/19 05:07 80 17 28 05/23/19 04:00 98.0 83 21 103/70 100 Mechanical Ventilator 28 05/23/19 04:00 Mechanical Ventilator 05/23/19 04:00 28 05/23/19 04:00 83 05/23/19 03:00 85 20 28 05/23/19 01:04 92 27 28 05/23/19 00:00 28 05/23/19 00:00 98.6 90 26 154/87 100 Mechanical Ventilator 28 05/23/19 00:00 88 05/23/19 00:00 Mechanical Ventilator 05/22/19 23:04 89 27 28 05/22/19 21:06 90 30 28 05/22/19 20:00 98.7 92 28 155/86 100 Mechanical Ventilator 28 05/22/19 20:00 Mechanical Ventilator 05/22/19 20:00 28 05/22/19 20:00 92 05/22/19 18:59 91 28 28 05/22/19 17:10 84 17 28 05/22/19 16:12 88 05/22/19 16:00 Mechanical Ventilator 05/22/19 16:00 97.7 88 20 128/77 100 Mechanical Ventilator 28 05/22/19 16:00 28 05/22/19 15:09 85 21 28 05/22/19 15:00 89 20 120/51 100 Mechanical Ventilator 28 05/22/19 14:00 89 20 122/56 100 Mechanical Ventilator 28 05/22/19 13:25 85 23 28 05/22/19 13:00 89 20 135/64 100 Mechanical Ventilator 28 05/22/19 12:28 84 18 131/67 100 Mechanical Ventilator 28 05/22/19 12:00 83 05/22/19 12:00 Mechanical Ventilator 05/22/19 12:00 99.4 84 18 131/67 100 Mechanical Ventilator 28 05/22/19 12:00 28 05/22/19 11:30 88 18 28 05/22/19 11:00 86 26 131/67 100 Mechanical Ventilator 28 05/22/19 10:00 86 26 152/85 99 Mechanical Ventilator 28 Labs: Labs Test 05/20/19 20:10 05/20/19 20:13 05/20/19 20:16 05/20/19 20:40 Arterial Blood pH 7.473 (7.350-7.450) Arterial Blood Partial Pressure CO2 33.7 mmHg (35.0-45.0) Arterial Blood Partial Pressure O2 114.2 mmHg (75.0-100.0) Arterial Blood HCO3 24.1 mmol/L (22.0-26.0) Arterial Blood Oxygen Saturation 97.8 % (95-100) Arterial Blood Base Excess 0.9 (-2-2) Aston Test Positive Urine Color Yellow Urine Appearance Clear Urine pH 7 (4.5-8.0) Urine Specific [place] 1.010 (1.005-1.035) Urine Protein 1+ (NEGATIVE) Urine Glucose (UA) Negative (NEGATIVE) Urine Ketones Negative (NEGATIVE) Urine Blood 5+ (NEGATIVE) Urine Nitrite Negative (NEGATIVE) Urine Bilirubin Negative (NEGATIVE) Urine Urobilinogen 4 MG/DL (0.0-1.0) Urine Leukocyte Esterase Negative (NEGATIVE) Urine RBC 30-40 /HPF (0 - 0) Urine WBC 0-2 /HPF (0 - 0) Urine Squamous Epithelial Cells Occasional /LPF Urine Bacteria None /HPF (NONE) White Blood Count 7.3 K/UL (4.8-10.8) Red Blood Count 3.41 M/UL (4.70-6.10) Hemoglobin 11.7 G/DL (14.2-18.0) Hematocrit 33.7 % (42.0-52.0) Mean Corpuscular Volume 99 FL (80-99) Mean Corpuscular Hemoglobin 34.1 PG (27.0-31.0) Mean Corpuscular Hemoglobin Concent 34.6 G/DL (32.0-36.0) Red Cell Distribution Width 11.6 % (11.6-14.8) Platelet Count 210 K/UL (150-450) Mean Platelet Volume 8.7 FL (6.5-10.1) Neutrophils (%) (Auto) 73.9 % (45.0-75.0) Lymphocytes (%) (Auto) 16.6 % (20.0-45.0) Monocytes (%) (Auto) 6.8 % (1.0-10.0) Eosinophils (%) (Auto) 0.1 % (0.0-3.0) Basophils (%) (Auto) 2.5 % (0.0-2.0) Sodium Level 132 MMOL/L (136-145) Potassium Level 3.6 MMOL/L (3.5-5.1) Chloride Level 98 MMOL/L (98-107) Carbon Dioxide Level 26 MMOL/L (21-32) Anion Gap 8 mmol/L (5-15) Blood Urea Nitrogen 13 mg/dL (7-18) Creatinine 1.1 MG/DL (0.55-1.30) Estimat Glomerular Filtration Rate > 60 mL/min (>60) Glucose Level 220 MG/DL (74-106) Lactic Acid Level 1.60 mmol/L (0.4-2.0) Calcium Level 8.5 MG/DL (8.5-10.1) Phosphorus Level 3.5 MG/DL (2.5-4.9) Magnesium Level 1.4 MG/DL (1.8-2.4) Total Bilirubin 1.1 MG/DL (0.2-1.0) Direct Bilirubin 0.6 MG/DL (0.0-0.3) Aspartate Amino Transf (AST/SGOT) 46 U/L (15-37) Alanine Aminotransferase (ALT/SGPT) 29 U/L (12-78) Alkaline Phosphatase 103 U/L (46-116) Total Creatine Kinase 254 U/L (26-308) Creatine Kinase MB 3.2 NG/ML (0.0-3.6) Creatine Kinase MB Relative Index 1.2 Troponin I 0.012 ng/mL (0.000-0.056) Pro-B-Type Natriuretic Peptide 553 pg/mL (0-125) Total Protein 6.4 G/DL (6.4-8.2) Albumin 2.7 G/DL (3.4-5.0) Globulin 3.7 g/dL Albumin/Globulin Ratio 0.7 (1.0-2.7) Lipase 241 U/L (73-393) Phenytoin (Dilantin) Level 37.9 ug/mL (10-20) Prothrombin Time 15.0 SEC (9.30-11.50) Prothromb Time International Ratio 1.4 (0.9-1.1) Activated Partial Thromboplast Time 51 SEC (23-33) Test 05/21/19 04:00 05/22/19 04:00 05/23/19 04:45 White Blood Count 9.1 K/UL (4.8-10.8) 5.0 K/UL (4.8-10.8) Red Blood Count 3.01 M/UL (4.70-6.10) 2.79 M/UL (4.70-6.10) Hemoglobin 10.2 G/DL (14.2-18.0) 9.5 G/DL (14.2-18.0) Hematocrit 30.2 % (42.0-52.0) 28.3 % (42.0-52.0) Mean Corpuscular Volume 101 FL (80-99) 101 FL (80-99) Mean Corpuscular Hemoglobin 33.8 PG (27.0-31.0) 33.9 PG (27.0-31.0) Mean Corpuscular Hemoglobin Concent 33.7 G/DL (32.0-36.0) 33.5 G/DL (32.0-36.0) Red Cell Distribution Width 12.5 % (11.6-14.8) 12.7 % (11.6-14.8) Platelet Count 175 K/UL (150-450) 119 K/UL (150-450) Mean Platelet Volume 8.7 FL (6.5-10.1) 8.4 FL (6.5-10.1) Neutrophils (%) (Auto) 75.8 % (45.0-75.0) 65.2 % (45.0-75.0) Lymphocytes (%) (Auto) 14.1 % (20.0-45.0) 19.2 % (20.0-45.0) Monocytes (%) (Auto) 8.0 % (1.0-10.0) 8.8 % (1.0-10.0) Eosinophils (%) (Auto) 0.8 % (0.0-3.0) 6.1 % (0.0-3.0) Basophils (%) (Auto) 1.3 % (0.0-2.0) 0.7 % (0.0-2.0) Sodium Level 140 MMOL/L (136-145) 141 MMOL/L (136-145) 143 MMOL/L (136-145) Potassium Level 3.6 MMOL/L (3.5-5.1) 3.1 MMOL/L (3.5-5.1) 3.1 MMOL/L (3.5-5.1) Chloride Level 105 MMOL/L (98-107) 107 MMOL/L (98-107) 111 MMOL/L (98-107) Carbon Dioxide Level 27 MMOL/L (21-32) 27 MMOL/L (21-32) 25 MMOL/L (21-32) Anion Gap 8 mmol/L (5-15) 7 mmol/L (5-15) 7 mmol/L (5-15) Blood Urea Nitrogen 10 mg/dL (7-18) 9 mg/dL (7-18) 10 mg/dL (7-18) Creatinine 0.8 MG/DL (0.55-1.30) 0.7 MG/DL (0.55-1.30) 0.7 MG/DL (0.55-1.30) Estimat Glomerular Filtration Rate > 60 mL/min (>60) > 60 mL/min (>60) > 60 mL/min (>60) Glucose Level 87 MG/DL (74-106) 120 MG/DL (74-106) 114 MG/DL (74-106) Calcium Level 8.1 MG/DL (8.5-10.1) 7.3 MG/DL (8.5-10.1) 8.0 MG/DL (8.5-10.1) Phenytoin (Dilantin) Level 37.0 ug/mL (10-20) 29.8 ug/mL (10-20) 19.1 ug/mL (10-20) Total Bilirubin 0.5 MG/DL (0.2-1.0) 0.5 MG/DL (0.2-1.0) Aspartate Amino Transf (AST/SGOT) 38 U/L (15-37) 33 U/L (15-37) Alanine Aminotransferase (ALT/SGPT) 27 U/L (12-78) 23 U/L (12-78) Alkaline Phosphatase 90 U/L (46-116) 76 U/L (46-116) Total Protein 5.3 G/DL (6.4-8.2) 4.9 G/DL (6.4-8.2) Albumin 2.2 G/DL (3.4-5.0) 1.9 G/DL (3.4-5.0) Globulin 3.1 g/dL 3.0 g/dL Albumin/Globulin Ratio 0.7 (1.0-2.7) 0.6 (1.0-2.7) Objective: GENERAL: An ill-appearing male, on full ventilation. HEENT: Negative. NECK: Supple. No adenopathy. The patient's tracheostomy midline. Carotids 2+. LUNGS: Coarse breath sounds. Moderate air entry. no wheeze CARDIAC: Mildly tachycardic. No murmurs, rubs, or gallops. ABDOMEN: Soft, nontender, nondistended. G-tube in place. EXTREMITIES: No cyanosis or clubbing. There are some contractures. NEUROLOGIC: poor mental status. SKIN: Noted and reviewed. reviewed and edited Micro: Microbiology Date/Time Source Procedure Growth Status 05/20/19 20:16 Blood Blood Culture - Preliminary NO GROWTH AFTER 48 HOURS Resulted 05/20/19 20:00 Blood Blood Culture - Preliminary NO GROWTH AFTER 48 HOURS Resulted 05/20/19 21:30 Nasal Nares MRSA Culture - Final NO METHICILLIN RESISTANT STAPH AUREUS... Complete 05/21/19 11:21 Stool Clostridium difficile Toxin Assay - Final Complete 05/20/19 21:30 Rectum VRE Culture - Final Enterococcus Faecalis - Vre Enterococcus Faecium - Vre Complete Gerber Shelton MD May 23, 2019 09:26
--- NOTE | 2019-05-23 10:59 | Infectious Diseases Prog Note ---
Assessment/Plan Assessment/Plan antibiotics : vancomycin iv, zosyn A 1. pneumonia 2. respiratory failure 3. seizures 4. encephalopathy P 1. continue iv vancomycin, zosyn 2. sputum culture 3. will follow up cultures Subjective ROS Limited/Unobtainable: Yes Allergies: Coded Allergies: CODEINE (Verified Allergy, Unknown, 11/15/16) Objective Vital Signs Last 24 Hour Vital Signs Date Time Temp Pulse Resp B/P (MAP) Pulse Ox O2 Delivery O2 Flow Rate FiO2 05/23/19 09:20 83 21 28 05/23/19 08:00 98.5 80 20 103/60 100 Mechanical Ventilator 28 05/23/19 08:00 28 05/23/19 08:00 Mechanical Ventilator 05/23/19 07:09 81 17 28 05/23/19 05:07 80 17 28 05/23/19 04:00 98.0 83 21 103/70 100 Mechanical Ventilator 28 05/23/19 04:00 Mechanical Ventilator 05/23/19 04:00 28 05/23/19 04:00 83 05/23/19 03:00 85 20 28 05/23/19 01:04 92 27 28 05/23/19 00:00 28 05/23/19 00:00 98.6 90 26 154/87 100 Mechanical Ventilator 28 05/23/19 00:00 88 05/23/19 00:00 Mechanical Ventilator 05/22/19 23:04 89 27 28 05/22/19 21:06 90 30 28 05/22/19 20:00 98.7 92 28 155/86 100 Mechanical Ventilator 28 05/22/19 20:00 Mechanical Ventilator 05/22/19 20:00 28 05/22/19 20:00 92 05/22/19 18:59 91 28 28 05/22/19 17:10 84 17 28 05/22/19 16:12 88 05/22/19 16:00 Mechanical Ventilator 05/22/19 16:00 97.7 88 20 128/77 100 Mechanical Ventilator 28 05/22/19 16:00 28 05/22/19 15:09 85 21 28 05/22/19 15:00 89 20 120/51 100 Mechanical Ventilator 28 05/22/19 14:00 89 20 122/56 100 Mechanical Ventilator 28 05/22/19 13:25 85 23 28 05/22/19 13:00 89 20 135/64 100 Mechanical Ventilator 28 05/22/19 12:28 84 18 131/67 100 Mechanical Ventilator 28 05/22/19 12:00 83 05/22/19 12:00 Mechanical Ventilator 05/22/19 12:00 99.4 84 18 131/67 100 Mechanical Ventilator 28 05/22/19 12:00 28 05/22/19 11:30 88 18 28 05/22/19 11:00 86 26 131/67 100 Mechanical Ventilator 28 Height (Feet): 5 Height (Inches): 9.00 Weight (Pounds): 140 HEENT: status post trach Respiratory/Chest: rhonchi - bilaterally Cardiovascular: normal rate, regular rhythm, no gallop/murmur Abdomen: soft, non tender, other - GT Extremities: other - + edema, right arm PICC Microbiology Date/Time Source Procedure Growth Status 05/20/19 20:16 Blood Blood Culture - Preliminary NO GROWTH AFTER 48 HOURS Resulted 05/20/19 20:00 Blood Blood Culture - Preliminary NO GROWTH AFTER 48 HOURS Resulted 05/20/19 21:30 Nasal Nares MRSA Culture - Final NO METHICILLIN RESISTANT STAPH AUREUS... Complete 05/21/19 11:21 Stool Clostridium difficile Toxin Assay - Final Complete 05/20/19 21:30 Rectum VRE Culture - Final Enterococcus Faecalis - Vre Enterococcus Faecium - Vre Complete Laboratory Tests Test 05/23/19 04:45 Sodium Level 143 MMOL/L (136-145) Potassium Level 3.1 MMOL/L (3.5-5.1) L Chloride Level 111 MMOL/L (98-107) H Carbon Dioxide Level 25 MMOL/L (21-32) Anion Gap 7 mmol/L (5-15) Blood Urea Nitrogen 10 mg/dL (7-18) Creatinine 0.7 MG/DL (0.55-1.30) Estimat Glomerular Filtration Rate > 60 mL/min (>60) Glucose Level 114 MG/DL (74-106) H Calcium Level 8.0 MG/DL (8.5-10.1) L Total Bilirubin 0.5 MG/DL (0.2-1.0) Aspartate Amino Transf (AST/SGOT) 33 U/L (15-37) Alanine Aminotransferase (ALT/SGPT) 23 U/L (12-78) Alkaline Phosphatase 76 U/L (46-116) Total Protein 4.9 G/DL (6.4-8.2) L Albumin 1.9 G/DL (3.4-5.0) L Globulin 3.0 g/dL Albumin/Globulin Ratio 0.6 (1.0-2.7) L Phenytoin (Dilantin) Level 19.1 ug/mL (10-20) Current Medications Medications (Trade) Dose Ordered Sig/Romelia Route PRN Reason Start Time Stop Time Status Last Admin Dose Admin Acetaminophen (Tylenol) 650 mg Q4H PRN GT Mild Pain/Temp > 100.5 05/22/19 16:00 06/21/19 15:59 Ascorbic Acid (Vitamin C) 500 mg DAILY GT 05/23/19 09:00 06/20/19 08:59 05/23/19 09:02 Aspirin (ASA) 81 mg DAILY GT 05/23/19 09:00 06/20/19 08:59 05/23/19 09:06 Bisacodyl (Dulcolax) 10 mg DAILYPRN PRN RECTAL Constipation 05/22/19 16:00 06/21/19 15:59 Chlorhexidine Gluconate (Natalie-Hex 2%) 1 applic DAILY@2000 TOPIC 05/22/19 20:00 06/20/19 19:59 05/22/19 20:33 Clopidogrel Bisulfate (Plavix) 75 mg DAILY GT 05/23/19 09:00 06/20/19 08:59 05/23/19 09:02 Heparin Sodium (Porcine) (Heparin 5000 units/ml) 5,000 units EVERY 12 HOURS SUBQ 05/22/19 21:00 06/20/19 08:59 Lamotrigine (LaMICtal) 100 mg DAILY GT 05/23/19 09:00 06/20/19 08:59 05/23/19 09:06 Levetiracetam (Keppra) 1,000 mg Q12HR GT 05/22/19 21:00 06/20/19 08:59 05/23/19 09:03 Lorazepam (Ativan 2mg/ml 1ml) 1 mg Q1H PRN IV For Seizures 05/22/19 15:30 05/28/19 09:29 Multivitamins (Multivitamins) 1 tab DAILY GT 05/23/19 09:00 06/20/19 08:59 05/23/19 09:06 Phenytoin (Dilantin) 300 mg BEDTIME ORAL 05/23/19 21:00 06/22/19 20:59 UNV Piperacillin Sod/ Tazobactam Sod 3.375 gm/Sodium Chloride 110 ml @ 27.5 mls/hr Q8H IVPB 05/22/19 18:00 05/28/19 09:59 05/23/19 09:07 Potassium Chloride (K-Dur) 40 meq ONCE ONCE ORAL 05/23/19 16:00 05/23/19 16:01 Sodium Chloride 1,000 ml @ 100 mls/hr Q10H IV 05/22/19 15:15 06/21/19 00:59 05/23/19 10:25 Vancomycin HCl (Vanco rx to dose) 1 ea DAILY PRN MISC Per rx protocol 05/23/19 09:00 06/20/19 09:14 Vancomycin HCl 750 mg/Dextrose 275 ml @ 183.333 mls/hr Q12H IVPB 05/23/19 03:00 05/27/19 02:59 05/23/19 03:22 Juju Marques MD May 23, 2019 10:59
[2019-05-23 11:58] VITALS: BP 138/77
[2019-05-23] MEDS ORDERED: NS 275ml ONE ×2 (13:35→17:08)
[2019-05-23] MEDS ORDERED: Tubing IV Secondary IV ONE ×2 (13:35→17:08)
[2019-05-23 16:00] VITALS: BP 145/78
--- NOTE | 2019-05-23 17:25 | Cardiology Report ---
APPROVED REPORT EKG Measurement Heart [id number] Normal sinus rhythm Normal ECG
--- NOTE | 2019-05-23 19:25 | NUR ---
HAND-OFF: Report given to MAURICE Malloy.
[2019-05-23] MEDS: Dyna-Hex 2% Top Sol 2oz TOPIC SCH (19:28)
--- NOTE | 2019-05-23 19:30 | NUR ---
NURSE NOTES: Pt report received from Dale Reyes KAMALJIT. pt remains stable. 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 pt is on a alarm security or surveillance monitor showing NSR, no distress noted. pt is trach to vent, satting at 99%, no distress noted. pt bed is low locked, armed, bed rails up times 3, call light witin reach. will proceed with plan of care.
[2019-05-23 20:00] VITALS: BP 113/68
[2019-05-23] MEDS ORDERED: Phenytoin 100mg cap ORAL SCH (21:00)
[2019-05-24] VITALS: BP 106/60
[2019-05-24] MEDS: Piperacillin/Tazobactam 3.375 GM in NS 110 ML IVPB SCH ×3 (01:42→17:26)
[2019-05-24 04:00] VITALS: BP 136/88
[2019-05-24] MEDS: Vancomycin 750 MG in D5W 275 ML IVPB SCH ×2 (06:18→15:03)
--- NOTE | 2019-05-24 07:10 | NUR ---
HAND-OFF: Report given to Dale MARI (day). Pt remains stable.
[2019-05-24 08:00] VITALS: BP 121/67
--- NOTE | 2019-05-24 08:21 | Critical Care Progress Note ---
Assessment/Plan Assessment/Plan IMPRESSION: 1. Dilantin toxicity. 2. Severe protein-calorie malnutrition. 3. Hypomagnesemia. 4. Respiratory failure. 5. Hypoxemia. 6. Probable sepsis. 7. Fevers. 8. Associated tachycardia. 9. Anemia. 10. History of DVT. PLAN care noted and reviewed iv antibiotics and cultures noted and ID reviewed respiratory care vent as is; no wean for now monitor for change continue to monitor dilantin level and resume on keppra seizure precautions suction PRN feeds elevate head off load dc planning medications/laboratory data/nursing notes reviewed in detail note reviewed and edited care discussed with RN and RT Critical Care - Subjective Interval Events: no distress no seizures ID noted ROS Limited/Unobtainable: Yes Condition: unchanged EKG Rhythm: Sinus Rhythm Residuals: minimal Tube Feeding Tolerated: yes I&O: Intake and Output 05/23/19 05/24/19 19:00 07:00 Intake Total 760 ml 2395.000 ml Output Total 300 ml 750 ml Balance 460 ml 1645.000 ml Free Water 100 ml 250 ml IV Total 1485.000 ml Tube Feeding 660 ml 660 ml Output Urine Total 300 ml 750 ml # Voids 1 # Bowel Movements 1 1 Critical Care - Objective Last 24 Hour Vital Signs Date Time Temp Pulse Resp B/P (MAP) Pulse Ox O2 Delivery O2 Flow Rate FiO2 05/24/19 07:18 83 19 28 05/24/19 05:00 87 21 28 05/24/19 04:00 Mechanical Ventilator 05/24/19 04:00 28 05/24/19 04:00 98.1 94 24 136/88 100 Mechanical Ventilator 05/24/19 03:39 84 05/24/19 02:49 83 25 28 05/24/19 01:00 81 22 28 05/24/19 00:00 28 05/24/19 00:00 98.2 97 24 106/60 100 Mechanical Ventilator 05/24/19 00:00 76 05/24/19 00:00 Mechanical Ventilator 05/23/19 23:35 80 24 28 05/23/19 21:21 75 20 28 05/23/19 20:02 89 05/23/19 20:00 28 05/23/19 20:00 98.2 97 26 113/68 100 Mechanical Ventilator 05/23/19 20:00 Mechanical Ventilator 05/23/19 18:45 92 24 28 05/23/19 17:24 85 28 28 05/23/19 16:15 82 24 28 05/23/19 16:00 28 05/23/19 16:00 98.9 85 20 145/78 100 Mechanical Ventilator 28 05/23/19 16:00 Mechanical Ventilator 05/23/19 16:00 85 05/23/19 13:30 89 29 28 05/23/19 12:00 Mechanical Ventilator 05/23/19 12:00 28 05/23/19 11:58 98.9 85 20 138/77 100 Mechanical Ventilator 28 05/23/19 11:50 93 05/23/19 11:10 90 28 28 05/23/19 09:20 83 21 28 Labs: Laboratory Tests Test 05/23/19 14:00 Vancomycin Level Trough 9.1 ug/mL (5.0-12.0) Objective: GENERAL: An ill-appearing male, on full ventilation. HEENT: Negative. NECK: Supple. No adenopathy. The patient's tracheostomy midline. Carotids 2+. LUNGS: Coarse breath sounds. Moderate air entry. no wheeze CARDIAC: Mildly tachycardic. No murmurs, rubs, or gallops. ABDOMEN: Soft, nontender, nondistended. G-tube in place. EXTREMITIES: No cyanosis or clubbing. There are some contractures. NEUROLOGIC: poor mental status. SKIN: Noted and reviewed. reviewed and edited Micro: Microbiology Date/Time Source Procedure Growth Status 05/21/19 11:21 Stool Clostridium difficile Toxin Assay - Final Complete Gerber Shelton MD May 24, 2019 08:21
[2019-05-24] MEDS: Aspirin Baby 81mg GT SCH (08:34)
[2019-05-24] MEDS: Heparin 5000 units/ml inj SUBQ SCH ×2 (08:35→20:03)
[2019-05-24] MEDS: Ascorbic Acid 500mg tab GT SCH (08:35)
[2019-05-24] MEDS ORDERED: NS 275ml ONE ×2 (09:41→09:54)
[2019-05-24] MEDS ORDERED: Tubing IV Secondary IV ONE ×2 (09:41→09:54)
--- NOTE | 2019-05-24 10:36 | Infectious Diseases Prog Note ---
Assessment/Plan Assessment/Plan IMPRESSION: Sepsis improving pneumonia hematuria, VRE carrier Dilantin toxicity Ventilator-dependent respiratory failure, seizure disorder, chronic encephalopathy. RECOMMENDATIONS: We will continue with vancomycin and Zosyn Will f/u cultures Subjective ROS Limited/Unobtainable: Yes Constitutional: Denies: fever Allergies: Coded Allergies: CODEINE (Verified Allergy, Unknown, 11/15/16) Objective Vital Signs Last 24 Hour Vital Signs Date Time Temp Pulse Resp B/P (MAP) Pulse Ox O2 Delivery O2 Flow Rate FiO2 05/24/19 09:12 100 26 28 05/24/19 07:18 83 19 28 05/24/19 05:00 87 21 28 05/24/19 04:00 Mechanical Ventilator 05/24/19 04:00 28 05/24/19 04:00 98.1 94 24 136/88 100 Mechanical Ventilator 05/24/19 03:39 84 05/24/19 02:49 83 25 28 05/24/19 01:00 81 22 28 05/24/19 00:00 28 05/24/19 00:00 98.2 97 24 106/60 100 Mechanical Ventilator 28 05/24/19 00:00 76 05/24/19 00:00 Mechanical Ventilator 05/23/19 23:35 80 24 28 05/23/19 21:21 75 20 28 05/23/19 20:02 89 05/23/19 20:00 28 05/23/19 20:00 98.2 97 26 113/68 100 Mechanical Ventilator 28 05/23/19 20:00 Mechanical Ventilator 05/23/19 18:45 92 24 28 05/23/19 17:24 85 28 28 05/23/19 16:15 82 24 28 05/23/19 16:00 28 05/23/19 16:00 98.9 85 20 145/78 100 Mechanical Ventilator 28 05/23/19 16:00 Mechanical Ventilator 05/23/19 16:00 85 05/23/19 13:30 89 29 28 05/23/19 12:00 Mechanical Ventilator 05/23/19 12:00 28 05/23/19 11:58 98.9 85 20 138/77 100 Mechanical Ventilator 28 05/23/19 11:50 93 05/23/19 11:10 90 28 28 Height (Feet): 5 Height (Inches): 9.00 Weight (Pounds): 140 General Appearance: no acute distress HEENT: status post trach Respiratory/Chest: lungs clear, other - on ventilator Cardiovascular: normal rate, other - R arm PICC line Abdomen: soft, non tender, other - GT feeding Extremities: other - edema of arms L>R Neurologic/Psychiatric: other - opens eyes Microbiology Date/Time Source Procedure Growth Status 05/21/19 11:21 Stool Clostridium difficile Toxin Assay - Final Complete Laboratory Tests Test 05/23/19 14:00 Vancomycin Level Trough 9.1 ug/mL (5.0-12.0) Current Medications Medications (Trade) Dose Ordered Sig/Romelia Route PRN Reason Start Time Stop Time Status Last Admin Dose Admin Acetaminophen (Tylenol) 650 mg Q4H PRN GT Mild Pain/Temp > 100.5 05/22/19 16:00 06/21/19 15:59 Ascorbic Acid (Vitamin C) 500 mg DAILY GT 05/23/19 09:00 06/20/19 08:59 05/24/19 08:35 Aspirin (ASA) 81 mg DAILY GT 05/23/19 09:00 06/20/19 08:59 05/24/19 08:34 Bisacodyl (Dulcolax) 10 mg DAILYPRN PRN RECTAL Constipation 05/22/19 16:00 06/21/19 15:59 Chlorhexidine Gluconate (Natalie-Hex 2%) 1 applic DAILY@2000 TOPIC 05/22/19 20:00 06/20/19 19:59 05/23/19 19:28 Clopidogrel Bisulfate (Plavix) 75 mg DAILY GT 05/23/19 09:00 06/20/19 08:59 05/24/19 08:35 Heparin Sodium (Porcine) (Heparin 5000 units/ml) 5,000 units EVERY 12 HOURS SUBQ 05/22/19 21:00 06/20/19 08:59 Lamotrigine (LaMICtal) 100 mg DAILY GT 05/23/19 09:00 06/20/19 08:59 05/24/19 08:34 Levetiracetam (Keppra) 1,000 mg Q12HR GT 05/22/19 21:00 06/20/19 08:59 05/24/19 08:35 Lorazepam (Ativan 2mg/ml 1ml) 1 mg Q1H PRN IV For Seizures 05/22/19 15:30 05/28/19 09:29 Multivitamins (Multivitamins) 1 tab DAILY GT 05/23/19 09:00 06/20/19 08:59 05/24/19 08:35 Phenytoin (Dilantin) 300 mg BEDTIME ORAL 05/24/19 21:00 06/23/19 20:59 UNV Piperacillin Sod/ Tazobactam Sod 3.375 gm/Sodium Chloride 110 ml @ 27.5 mls/hr Q8H IVPB 05/22/19 18:00 05/28/19 09:59 05/24/19 09:59 Sodium Chloride 1,000 ml @ 100 mls/hr Q10H IV 05/22/19 15:15 06/21/19 00:59 05/24/19 06:17 Vancomycin HCl (Vanco rx to dose) 1 ea DAILY PRN MISC Per rx protocol 05/23/19 09:00 06/20/19 09:14 Vancomycin HCl 750 mg/Dextrose 275 ml @ 183.333 mls/hr Q8H IVPB 05/23/19 23:00 05/28/19 22:59 05/24/19 06:18 Placido Linares MD May 24, 2019 10:36
[2019-05-24 11:51] LABS: ANION GAP 5 mmol/L (5-15); BLOOD UREA NITROGEN 9 mg/dL (7-18); CALCIUM 8.2 MG/DL (8.5-10.1); CARBON DIOXIDE 25 MMOL/L (21-32); CHLORIDE 110 MMOL/L (98-107); CREATININE 0.6 MG/DL (0.55-1.30); POTASSIUM 3.9 MMOL/L (3.5-5.1); SODIUM 140 MMOL/L (136-145)
[2019-05-24 12:00] VITALS: BP 136/73
--- NOTE | 2019-05-24 13:18 | General Progress Note ---
Assessment/Plan Problem List: (1) Dilantin toxicity ICD Codes: T42.0X1A - Poisoning by hydantoin derivatives, accidental ( unintentional), initial encounter SNOMED: 42127658 (2) Respiratory failure ICD Codes: J96.90 - Respiratory failure, unspecified, unspecified whether with hypoxia or hypercapnia SNOMED: 115602651 (3) Epileptic seizure, generalized ICD Codes: G40.309 - Generalized idiopathic epilepsy and epileptic syndromes, not intractable, without status epilepticus SNOMED: 23983798 (4) Acute on chronic respiratory failure ICD Codes: J96.20 - Acute and chronic respiratory failure, unspecified whether with hypoxia or hypercapnia SNOMED: 62308018, 89290202 (5) Anoxic encephalopathy syndrome ICD Codes: G93.1 - Anoxic brain damage, not elsewhere classified SNOMED: 767700879 (6) Altered mental status ICD Codes: R41.82 - Altered mental status, unspecified SNOMED: 054331333 Qualifiers: Qualified Codes: R41.82 - Altered mental status, unspecified Status: stable, progressing Assessment/Plan: resume dilantin monitor dilantin level vent support resp rx gt feeds vent support abx- follow up culltures turn q2 Subjective ROS Limited/Unobtainable: No Constitutional: Reports: malaise, weakness HEENT: Reports: no symptoms Cardiovascular: Reports: no symptoms Respiratory: Reports: no symptoms Gastrointestinal/Abdominal: Reports: difficulty swallowing Genitourinary: Reports: no symptoms Neurologic/Psychiatric: Reports: pre-existing deficit, seizure Endocrine: Reports: no symptoms Hematologic/Lymphatic: Reports: anemia Allergies: Coded Allergies: CODEINE (Verified Allergy, Unknown, 11/15/16) All Systems: reviewed and negative except above Subjective on the vent. poorly responsive at baseline. Dilantin level low end of the therapeutic range. no szs. no fevers. on abx. cultures negative so far Objective Last 24 Hour Vital Signs Date Time Temp Pulse Resp B/P (MAP) Pulse Ox O2 Delivery O2 Flow Rate FiO2 05/24/19 12:00 Mechanical Ventilator 05/24/19 12:00 28 05/24/19 11:06 100 29 28 05/24/19 09:12 100 26 28 05/24/19 08:00 98.8 87 24 121/67 100 Mechanical Ventilator 28 05/24/19 08:00 Mechanical Ventilator 05/24/19 08:00 28 05/24/19 07:50 87 05/24/19 07:18 83 19 28 05/24/19 05:00 87 21 28 05/24/19 04:00 Mechanical Ventilator 05/24/19 04:00 28 05/24/19 04:00 98.1 94 24 136/88 100 Mechanical Ventilator 28 05/24/19 03:39 84 05/24/19 02:49 83 25 28 05/24/19 01:00 81 22 28 05/24/19 00:00 28 05/24/19 00:00 98.2 97 24 106/60 100 Mechanical Ventilator 28 05/24/19 00:00 76 05/24/19 00:00 Mechanical Ventilator 05/23/19 23:35 80 24 28 05/23/19 21:21 75 20 28 05/23/19 20:02 89 05/23/19 20:00 28 05/23/19 20:00 98.2 97 26 113/68 100 Mechanical Ventilator 28 05/23/19 20:00 Mechanical Ventilator 05/23/19 18:45 92 24 28 05/23/19 17:24 85 28 28 05/23/19 16:15 82 24 28 05/23/19 16:00 28 05/23/19 16:00 98.9 85 20 145/78 100 Mechanical Ventilator 28 05/23/19 16:00 Mechanical Ventilator 05/23/19 16:00 85 05/23/19 13:30 89 29 28 Intake and Output 05/23/19 05/24/19 18:59 06:59 Intake Total 947.5 ml 2395.000 ml Output Total 300 ml 750 ml Balance 647.5 ml 1645.000 ml Free Water 100 ml 250 ml IV Total 127.5 ml 1485.000 ml Tube Feeding 720 ml 660 ml Output Urine Total 300 ml 750 ml # Voids 1 # Bowel Movements 1 1 Laboratory Tests 05/23/19 14:00: Vancomycin Level Trough 9.1 05/24/19 10:25: Sodium Level 140, Potassium Level 3.9, Chloride Level 110H, Carbon Dioxide Level 25, Anion Gap 5, Blood Urea Nitrogen 9, Creatinine 0.6, Estimat Glomerular Filtration Rate > 60, Glucose Level 91, Calcium Level 8.2L, Phenytoin (Dilantin) Level 10.9 Height (Feet): 5 Height (Inches): 9.00 Weight (Pounds): 140 Objective General Appearance: WD/WN, lethargic, confused Neck: supple Cardiovascular: regular rhythm Respiratory/Chest: chest wall non-tender, lungs clear, normal breath sounds, no respiratory distress Abdomen: normal bowel sounds, non tender, soft, no organomegaly Edema: no edema noted Arm (L), no edema noted Arm (R), no edema noted Leg (L), no edema noted Leg (R), no edema noted Pedal (L), no edema noted Pedal (R), no edema noted Generalized Nathaniel Jimenez MD May 24, 2019 13:18
--- NOTE | 2019-05-24 15:00 | NUR ---
NURSE NOTES: Per Dr. Shelton continue Phenytoin 300 mg QHS as ordered, made aware of current phenytoin level of 10.9. Dr. Shelton acknowledged and ordered to proceed as ordered. Pharmacist made aware. Will continue to monitor patient.
[2019-05-24 16:00] VITALS: BP 127/77
--- NOTE | 2019-05-24 19:14 | NUR ---
RESPIRATORY NOTE: Received pt. on 840 vent. Vent settings are: A/C rate of 14, Vt 500, FI02 28%, PEEP +5. No respiratory distress noted, pt sP02 @ 100%. Ambu bag @ BS. Vent was already connected to external alarm and plugged on red outlet. Will continue to monitor pt.
--- NOTE | 2019-05-24 19:18 | NUR ---
HAND-OFF: Report given to MAURICE Malloy.
--- NOTE | 2019-05-24 19:20 | NUR ---
NURSE NOTES: Pt report received from Dale MARI. pt remains stable. pt is on a case monitor showing NSR, no distress noted. pt is on a trach to vent, satting well at 98% no resp distress noted. pt bed is low locked, armed, bed rails up times 3, call light within reach. will continue plan of care.
[2019-05-24 20:00] VITALS: BP 116/70
[2019-05-24] MEDS: Dyna-Hex 2% Top Sol 2oz TOPIC SCH (20:08)
[2019-05-24] MEDS ORDERED: Phenytoin 100mg cap ORAL SCH (21:00)
[2019-05-24] MEDS: Vancomycin 1 GM in D5W 275 ML IVPB SCH (23:25)
[2019-05-25] VITALS: BP 127/81
[2019-05-25] MEDS: Piperacillin/Tazobactam 3.375 GM in NS 110 ML IVPB SCH ×3 (01:39→18:09)
[2019-05-25 04:00] VITALS: BP 119/77
[2019-05-25] MEDS: Vancomycin 1 GM in D5W 275 ML IVPB SCH ×2 (06:09→14:43)
--- NOTE | 2019-05-25 07:12 | NUR ---
HAND-OFF: Report given to Juan Montes ICU KAMALJIT RN. Pt remains stable.
--- NOTE | 2019-05-25 07:44 | NUR ---
NURSE NOTES: LATE ENTRY RECEIVED REPORT FROM ISABELLE RICHARDS. PT IN BED. NON VERBAL, OPENS EYES SPONTANEOUSLY, PUPILS 3MM SLUGGISH. TEMP 98.0. BP 120/77, HR 81.TRACH PORTEX , VENT SETTINGS: AC 14, VT 500, PEEP 5, FIO2 28% SATING 100%. RR 22. LUNG SOUNDS DIMINISHED BILATERAL LOBES. SCANT SPUTUM. GASTELUM AND THICK. ABDOMEN SOFT ROUND, NON-TENDER. BOWEL SOUNDS HYPOACTIVE. GT PATENT AND INTACT. VITAL A.F @16ML/HR. NO BM. PT HAS CONDOM CATH, DRAINING YELLOW URINE. BILATERAL RADIAL AND PEDAL PULSES WEAK. EDEMA UPPER AND LOWER EXTREMITIES. IV: MONIKA TLC. DRESSING DRY INTACT. SKIN- SEE ASSESSMENT. CONTACT AND SZ PRECAUTIONS IN PLACE. BED LOCKED, ALARM ON, IN LOW POSITION AND SIDE RAILS X3. ZONE 1. CALL LIGHT IN REACH. WILL CONTINUE TO IMPLEMENT PLAN OF CARE.
[2019-05-25 08:00] VITALS: BP 120/77
--- NOTE | 2019-05-25 08:36 | Critical Care Progress Note ---
Assessment/Plan Assessment/Plan IMPRESSION: 1. Dilantin toxicity. 2. Severe protein-calorie malnutrition. 3. Hypomagnesemia. 4. Respiratory failure. 5. Hypoxemia. 6. Probable sepsis. 7. Fevers. 8. Associated tachycardia. 9. Anemia. 10. History of DVT. PLAN care noted and reviewed iv antibiotics respiratory care full vent support monitor for change resume dilantin on keppra seizure precautions suction PRN feeds elevate head off load dc planning to snf pending ID clearance medications/laboratory data/nursing notes reviewed in detail note reviewed and edited care discussed with RN and RT Critical Care - Subjective Interval Events: out of ICU vitals stable on vent ROS Limited/Unobtainable: Yes Condition: stable EKG Rhythm: Sinus Rhythm Residuals: minimal Tube Feeding Tolerated: yes I&O: Intake and Output 05/24/19 05/25/19 19:00 07:00 Intake Total 970 ml 2606.666 ml Output Total 800 ml Balance 170 ml 2606.666 ml Free Water 150 ml 150 ml IV Total 100 ml 1676.666 ml Tube Feeding 720 ml 780 ml Output Urine Total 800 ml # Voids 2 # Bowel Movements 4 2 Critical Care - Objective Last 24 Hour Vital Signs Date Time Temp Pulse Resp B/P (MAP) Pulse Ox O2 Delivery O2 Flow Rate FiO2 05/25/19 07:22 84 20 28 05/25/19 05:15 86 21 28 05/25/19 04:00 28 05/25/19 04:00 98.1 84 21 119/77 99 Mechanical Ventilator 05/25/19 04:00 Mechanical Ventilator 05/25/19 03:43 79 05/25/19 03:00 85 23 28 05/25/19 01:29 71 28 28 05/25/19 00:00 98.1 84 20 127/81 99 Mechanical Ventilator 05/25/19 00:00 82 05/25/19 00:00 Mechanical Ventilator 05/25/19 00:00 28 05/24/19 23:00 79 27 28 05/24/19 21:00 85 23 28 05/24/19 20:00 98.7 75 22 116/70 99 Mechanical Ventilator 05/24/19 20:00 77 05/24/19 20:00 28 05/24/19 20:00 Mechanical Ventilator 05/24/19 19:12 77 20 28 05/24/19 16:55 77 15 28 05/24/19 16:00 76 05/24/19 16:00 Mechanical Ventilator 05/24/19 16:00 28 05/24/19 16:00 98.2 80 20 127/77 100 Mechanical Ventilator 28 05/24/19 15:20 76 16 28 05/24/19 13:16 75 24 28 05/24/19 12:00 Mechanical Ventilator 05/24/19 12:00 98.8 83 20 136/73 100 Mechanical Ventilator 28 05/24/19 12:00 28 05/24/19 11:43 77 05/24/19 11:06 100 29 28 05/24/19 09:12 100 26 28 Labs: Laboratory Tests Test 05/24/19 10:25 05/24/19 21:55 Sodium Level 140 MMOL/L (136-145) Potassium Level 3.9 MMOL/L (3.5-5.1) Chloride Level 110 MMOL/L (98-107) H Carbon Dioxide Level 25 MMOL/L (21-32) Anion Gap 5 mmol/L (5-15) Blood Urea Nitrogen 9 mg/dL (7-18) Creatinine 0.6 MG/DL (0.55-1.30) Estimat Glomerular Filtration Rate > 60 mL/min (>60) Glucose Level 91 MG/DL (74-106) Calcium Level 8.2 MG/DL (8.5-10.1) L Phenytoin (Dilantin) Level 10.9 ug/mL (10-20) Vancomycin Level Trough 13.8 ug/mL (5.0-12.0) H Objective: GENERAL: An ill-appearing male, on vent HEENT: Negative. NECK: Supple. No adenopathy. The patient's tracheostomy midline. Carotids 2+. LUNGS: normal breath sounds. Moderate air entry. no wheeze CARDIAC: RRR. No murmurs, rubs, or gallops. ABDOMEN: Soft, nontender, nondistended. G-tube in place.no HSM EXTREMITIES: No cyanosis or clubbing. contractures. NEUROLOGIC: poor mental status. SKIN: Noted and reviewed. reviewed and edited Micro: Microbiology Date/Time Source Procedure Growth Status 05/23/19 13:55 Sputum Gram Stain - Final Resulted 05/23/19 13:55 Sputum Sputum Culture Pending Resulted Gerber Shelton MD May 25, 2019 08:36
[2019-05-25] MEDS: Heparin 5000 units/ml inj SUBQ SCH (09:00)
[2019-05-25] MEDS: Aspirin Baby 81mg GT SCH (09:37)
[2019-05-25] MEDS: Ascorbic Acid 500mg tab GT SCH (09:38)
--- NOTE | 2019-05-25 10:27 | Infectious Diseases Prog Note ---
Assessment/Plan Assessment/Plan IMPRESSION: Sepsis improving pneumonia hematuria, VRE carrier Dilantin toxicity Ventilator-dependent respiratory failure, seizure disorder, chronic encephalopathy. RECOMMENDATIONS: We will continue with vancomycin and Zosyn Will f/u cultures Subjective ROS Limited/Unobtainable: Yes Constitutional: Denies: fever Allergies: Coded Allergies: CODEINE (Verified Allergy, Unknown, 11/15/16) Objective Vital Signs Last 24 Hour Vital Signs Date Time Temp Pulse Resp B/P (MAP) Pulse Ox O2 Delivery O2 Flow Rate FiO2 05/25/19 09:19 92 20 28 05/25/19 08:00 28 05/25/19 08:00 Mechanical Ventilator 05/25/19 08:00 80 05/25/19 07:22 84 20 28 05/25/19 05:15 86 21 28 05/25/19 04:00 28 05/25/19 04:00 98.1 84 21 119/77 99 Mechanical Ventilator 05/25/19 04:00 Mechanical Ventilator 05/25/19 03:43 79 05/25/19 03:00 85 23 28 05/25/19 01:29 71 28 28 05/25/19 00:00 98.1 84 20 127/81 99 Mechanical Ventilator 05/25/19 00:00 82 05/25/19 00:00 Mechanical Ventilator 05/25/19 00:00 28 05/24/19 23:00 79 27 28 05/24/19 21:00 85 23 28 05/24/19 20:00 98.7 75 22 116/70 99 Mechanical Ventilator 05/24/19 20:00 77 05/24/19 20:00 28 05/24/19 20:00 Mechanical Ventilator 05/24/19 19:12 77 20 28 05/24/19 16:55 77 15 28 05/24/19 16:00 76 05/24/19 16:00 Mechanical Ventilator 05/24/19 16:00 28 05/24/19 16:00 98.2 80 20 127/77 100 Mechanical Ventilator 28 05/24/19 15:20 76 16 28 05/24/19 13:16 75 24 28 05/24/19 12:00 Mechanical Ventilator 05/24/19 12:00 98.8 83 20 136/73 100 Mechanical Ventilator 05/24/19 12:00 28 05/24/19 11:43 77 05/24/19 11:06 100 29 28 Height (Feet): 5 Height (Inches): 9.00 Weight (Pounds): 140 HEENT: status post trach Respiratory/Chest: lungs clear, other - on ventilator Cardiovascular: normal rate Abdomen: soft, non tender, other - GT feeding Extremities: other Neurologic/Psychiatric: aphasia, other - opens eyes Microbiology Date/Time Source Procedure Growth Status 05/23/19 13:55 Sputum Gram Stain - Final Resulted 05/23/19 13:55 Sputum Sputum Culture Pending Resulted Laboratory Tests Test 05/24/19 21:55 Vancomycin Level Trough 13.8 ug/mL (5.0-12.0) H Current Medications Medications (Trade) Dose Ordered Sig/Romelia Route PRN Reason Start Time Stop Time Status Last Admin Dose Admin Acetaminophen (Tylenol) 650 mg Q4H PRN GT Mild Pain/Temp > 100.5 05/22/19 16:00 06/21/19 15:59 Ascorbic Acid (Vitamin C) 500 mg DAILY GT 05/23/19 09:00 06/20/19 08:59 05/25/19 09:38 Aspirin (ASA) 81 mg DAILY GT 05/23/19 09:00 06/20/19 08:59 05/25/19 09:37 Bisacodyl (Dulcolax) 10 mg DAILYPRN PRN RECTAL Constipation 05/22/19 16:00 06/21/19 15:59 Chlorhexidine Gluconate (Natalie-Hex 2%) 1 applic DAILY@2000 TOPIC 05/22/19 20:00 06/20/19 19:59 05/24/19 20:08 Clopidogrel Bisulfate (Plavix) 75 mg DAILY GT 05/23/19 09:00 06/20/19 08:59 05/25/19 09:37 Heparin Sodium (Porcine) (Heparin 5000 units/ml) 5,000 units EVERY 12 HOURS SUBQ 05/22/19 21:00 06/20/19 08:59 Lamotrigine (LaMICtal) 100 mg DAILY GT 05/23/19 09:00 06/20/19 08:59 05/25/19 09:37 Levetiracetam (Keppra) 1,000 mg Q12HR GT 05/22/19 21:00 06/20/19 08:59 05/25/19 09:38 Lorazepam (Ativan 2mg/ml 1ml) 1 mg Q1H PRN IV For Seizures 05/22/19 15:30 05/28/19 09:29 Multivitamins (Multivitamins) 1 tab DAILY GT 05/23/19 09:00 06/20/19 08:59 05/25/19 09:38 Phenytoin (Dilantin) 300 mg BEDTIME ORAL 05/24/19 21:00 06/23/19 20:59 05/24/19 20:07 Piperacillin Sod/ Tazobactam Sod 3.375 gm/Sodium Chloride 110 ml @ 27.5 mls/hr Q8H IVPB 05/22/19 18:00 05/28/19 09:59 05/25/19 09:37 Sodium Chloride 1,000 ml @ 100 mls/hr Q10H IV 05/22/19 15:15 06/21/19 00:59 05/25/19 02:33 Vancomycin HCl (Vanco rx to dose) 1 ea DAILY PRN MISC Per rx protocol 05/23/19 09:00 06/20/19 09:14 Vancomycin HCl 1 gm/Dextrose 275 ml @ 183.333 mls/hr Q8H IVPB 05/24/19 23:00 05/29/19 22:59 05/25/19 06:09 Placido Linares MD May 25, 2019 10:27
--- NOTE | 2019-05-25 11:20 | NUR ---
NURSE NOTES: CALLED MD BO FOR AM LABS, WILL CHECK SOME NOTES, BUT MAY NOT NEED AM LABS TODAY.
[2019-05-25 12:00] VITALS: BP 136/93
--- NOTE | 2019-05-25 12:00 | NUR ---
NURSE NOTES: LATE ENTRY PT IN BED. PT CLEANED AND REPOSITIONED. NON VERBAL, OPENS EYES SPONTANEOUSLY. TEMP 98.4. BP 136/93, HR 95.TRACH PORTEX 7, VENT SETTINGS: AC 14, VT 500, PEEP 5, FIO2 28% SATING 100%. RR 22. SCANT SPUTUM. GASTELUM AND THICK. ABDOMEN SOFT ROUND, NON-TENDER. BOWEL SOUNDS HYPOACTIVE. GT PATENT AND INTACT. VITAL A.F @16ML/HR. NO BM. PT HAS CONDOM CATH, DRAINING YELLOW URINE. BILATERAL RADIAL AND PEDAL PULSES WEAK. EDEMA UPPER AND LOWER EXTREMITIES. IV: MONIKA TLC. DRESSING DRY INTACT. SKIN- SEE ASSESSMENT. CONTACT AND SZ PRECAUTIONS IN PLACE. BED LOCKED, ALARM ON, IN LOW POSITION AND SIDE RAILS X3. ZONE 1. CALL LIGHT IN REACH. WILL CONTINUE TO IMPLEMENT PLAN OF CARE.
--- NOTE | 2019-05-25 12:17 | NUR ---
NURSE NOTES: LATE ENTRY RECEIVED REPORT FROM ISABELLE RICHARDS. PT IN BED. NON VERBAL, OPENS EYES SPONTANEOUSLY, PUPILS 3MM SLUGGISH. TEMP 98.0. BP 120/77, HR 81.TRACH PORTEX , VENT SETTINGS: AC 14, VT 500, PEEP 5, FIO2 28% SATING 100%. RR 22. LUNG SOUNDS DIMINISHED BILATERAL LOBES. SCANT SPUTUM. GASTELUM AND THICK. ABDOMEN SOFT ROUND, NON-TENDER. BOWEL SOUNDS HYPOACTIVE. GT PATENT AND INTACT. VITAL A.F @16ML/HR. NO BM. PT HAS CONDOM CATH, DRAINING YELLOW URINE. BILATERAL RADIAL AND PEDAL PULSES WEAK. EDEMA UPPER AND LOWER EXTREMITIES. IV: MONIKA TLC. DRESSING DRY INTACT. SKIN- SEE ASSESSMENT. CONTACT AND SZ PRECAUTIONS IN PLACE. BED LOCKED, ALARM ON, IN LOW POSITION AND SIDE RAILS X3. ZONE 1. CALL LIGHT IN REACH. WILL CONTINUE TO IMPLEMENT PLAN OF CARE. Addendum: 05/25/19 at 1403 by Katarzyna Nunez RN WRONG TIME
--- NOTE | 2019-05-25 14:43 | General Progress Note ---
Assessment/Plan Problem List: (1) Dilantin toxicity ICD Codes: T42.0X1A - Poisoning by hydantoin derivatives, accidental ( unintentional), initial encounter SNOMED: 27457929 (2) Respiratory failure ICD Codes: J96.90 - Respiratory failure, unspecified, unspecified whether with hypoxia or hypercapnia SNOMED: 965093581 (3) Epileptic seizure, generalized ICD Codes: G40.309 - Generalized idiopathic epilepsy and epileptic syndromes, not intractable, without status epilepticus SNOMED: 07005330 (4) Acute on chronic respiratory failure ICD Codes: J96.20 - Acute and chronic respiratory failure, unspecified whether with hypoxia or hypercapnia SNOMED: 91450995, 48312448 (5) Anoxic encephalopathy syndrome ICD Codes: G93.1 - Anoxic brain damage, not elsewhere classified SNOMED: 118843735 (6) Altered mental status ICD Codes: R41.82 - Altered mental status, unspecified SNOMED: 291699627 Qualifiers: Qualified Codes: R41.82 - Altered mental status, unspecified Status: stable, progressing Assessment/Plan: monitor dilantin level vent support resp rx gt feeds vent support abx- follow up culltures turn q2 Subjective ROS Limited/Unobtainable: Yes Constitutional: Reports: malaise, weakness HEENT: Reports: no symptoms Cardiovascular: Reports: no symptoms Respiratory: Reports: shortness of breath, sputum Gastrointestinal/Abdominal: Reports: difficulty swallowing Genitourinary: Reports: no symptoms Neurologic/Psychiatric: Reports: pre-existing deficit, seizure Endocrine: Reports: no symptoms Hematologic/Lymphatic: Reports: no symptoms Allergies: Coded Allergies: CODEINE (Verified Allergy, Unknown, 11/15/16) All Systems: reviewed and negative except above Subjective on the vent. poorly responsive at baseline. Dilantin level therapeutic. no szs. no fevers. on abx. cultures negative so far on iv abx x 2 Objective Last 24 Hour Vital Signs Date Time Temp Pulse Resp B/P (MAP) Pulse Ox O2 Delivery O2 Flow Rate FiO2 05/25/19 13:21 88 23 28 05/25/19 12:00 Mechanical Ventilator 05/25/19 12:00 98.4 95 24 136/93 100 Mechanical Ventilator 28 05/25/19 12:00 28 05/25/19 10:52 100 22 28 05/25/19 09:19 92 20 28 05/25/19 08:00 28 05/25/19 08:00 Mechanical Ventilator 05/25/19 08:00 80 05/25/19 08:00 98.0 81 22 120/77 100 Mechanical Ventilator 28 05/25/19 07:22 84 20 28 05/25/19 05:15 86 21 28 05/25/19 04:00 28 05/25/19 04:00 98.1 84 21 119/77 99 Mechanical Ventilator 28 05/25/19 04:00 Mechanical Ventilator 05/25/19 03:43 79 05/25/19 03:00 85 23 28 05/25/19 01:29 71 28 28 05/25/19 00:00 98.1 84 20 127/81 99 Mechanical Ventilator 28 05/25/19 00:00 82 05/25/19 00:00 Mechanical Ventilator 05/25/19 00:00 28 05/24/19 23:00 79 27 28 05/24/19 21:00 85 23 28 05/24/19 20:00 98.7 75 22 116/70 99 Mechanical Ventilator 28 05/24/19 20:00 77 05/24/19 20:00 28 05/24/19 20:00 Mechanical Ventilator 05/24/19 19:12 77 20 28 05/24/19 16:55 77 15 28 05/24/19 16:00 76 05/24/19 16:00 Mechanical Ventilator 05/24/19 16:00 28 05/24/19 16:00 98.2 80 20 127/77 100 Mechanical Ventilator 28 05/24/19 15:20 76 16 28 Intake and Output 05/24/19 05/25/19 19:00 07:00 Intake Total 970 ml 2606.666 ml Output Total 800 ml Balance 170 ml 2606.666 ml Free Water 150 ml 150 ml IV Total 100 ml 1676.666 ml Tube Feeding 720 ml 780 ml Output Urine Total 800 ml # Voids 2 # Bowel Movements 4 2 Laboratory Tests 05/24/19 21:55: Vancomycin Level Trough 13.8H Height (Feet): 5 Height (Inches): 9.00 Weight (Pounds): 140 Objective General Appearance: WD/WN, lethargic, confused Neck: supple Cardiovascular: regular rhythm Respiratory/Chest: chest wall non-tender, lungs clear, normal breath sounds, no respiratory distress Abdomen: normal bowel sounds, non tender, soft, no organomegaly Edema: no edema noted Arm (L), no edema noted Arm (R), no edema noted Leg (L), no edema noted Leg (R), no edema noted Pedal (L), no edema noted Pedal (R), no edema noted Generalized Nathaniel Jimenez MD May 25, 2019 14:43
--- NOTE | 2019-05-25 15:56 | NUR ---
NURSE NOTES: called MD Keila JAMES REGARDING ISOLATION STATUS, OK TO PLACE COLONIZED ORDER. C.N AND ENVIRONMENTAL PERMITTING SPECIALIST AWARE.
[2019-05-25 16:00] VITALS: BP 130/75
--- NOTE | 2019-05-25 16:22 | NUR ---
DISCHARGE PLANNING DISCHARGE ORDER NOTED Patient has been accepted to; [facility] [address] [place] [address] Bed: 218-B Skilled [phone] for Nurse to Nurse report [facility] ETA for transportation: 18:30
--- NOTE | 2019-05-25 17:08 | NUR ---
NURSE NOTES: CALLED [facility], GAVE REPORT TO STAR SR. ALL QUESTIONS ANSWERED. ETA FOR TRANSPORTATION 1829, GOING TO BED 218-B Addendum: 05/25/19 at 1924 by Katarzyna Nunez RN LATE ENTRY
--- NOTE | 2019-05-25 17:35 | NUR ---
NURSE NOTES: CALLED CONTACT DAUGHTER CHANA GROSSMAN AND LEFT MESSAGE REGARDING PATIENT [facility]C [facility]. Addendum: 05/25/19 at 1924 by Katarzyna Nunez RN LATE ENTRY
--- NOTE | 2019-05-25 19:05 | NUR ---
RESPIRATORY NOTE: Received pt on AC 14, 500VT, 28%, PEEP+5. Pt is trach-dependent w/ a cuffed, Poretx 7 tube. Pt flat effect, responds to stimuli. B/S angie. rhonchi, sxn moderate amounts of thick, pale-yellow secretions. Vent plugged into red outlet, ambubag at bedside. Pt in no apparent distres at this time. Will continue plan of care.
--- NOTE | 2019-05-25 19:46 | NUR ---
NURSE NOTES: [facility] ambulance here to berry picker pt. sbar. all questions answered.
--- NOTE | 2019-05-26 08:55 | Discharge Summary ---
Discharge Summary Discharge Summary _ DATE OF ADMISSION: 05/20/2019 DATE OF DISCHARGE: 05/25/2019 DISCHARGED BY: Dr. Shelton REASON FOR ADMISSION: 64 years old male with past medical history of chronic respiratory failure, ventilator dependent with tracheostomy status, COPD/asthma, encephalopathy, history of CVA, seizure disorder, dysphagia, G-tube, hypertension, presented to emergency department from the [facility] for evaluation of fever and altered mental status . Patient appeared to be more altered than his baseline. Upon arrival patient was febrile and tachycardic. Laboratory work-up revealed no leukocytosis, hemoglobin 11.7, hematocrit 33.7. Sodium 132, potassium 3.6. Magnesium 1.4 BUN 13, creatinine 1.1. Glucose 220. Lactic acid 1.6 AST 46, ALT 29. Lipase within normal limits. Troponin - 0.012, pro BNP 553.EKG revealed normal sinus rhythm, no acute ischemic changes. Dilantin level 37.9 Chest x-ray revealed no acute pulmonary pathology. Urinalysis revealed no evidence of urinary tract infection, +1 protein. In emergency department septic work-up was initiated :patient received fluid bolus, s pancultured and started on empiric antibiotic Patient subsequently admitted to stepdown unit for further management. CONSULTANTS: internal medicine Dr. Jimenez ID specialist Dr. Marques HOSPITAL COURSE: Patient admitted to direct observational unit. Patient was on empiric antibiotics as per ID specialist recommendations. Ventilator support and tracheostomy care provided. Pulmonary toilet with bronchodilator therapy provided. DVT prophylaxis provided. Blood cultures were negative. Sputum culture revealed gram-negative bacilli , 2 different species. Stool for C. difficile was done due to diarrhea and was negative. Antibiotic regimen was optimized as per infectious disease specialist further recommendations. Fevers resolved, no leukocytosis. Seizure precautions were maintained. Patient was continued on Lamictal and Keppra. Dilantin level was trended. Dilantin resumed , when level was therapeutic, and dose was optimized. No evidence of seizure activity while in the hospital. Strict aspiration precaution maintained. G-tube feeding continued with goal rate and protein supplements as recommended by dietetic technician registered. Hemoglobin and hematocrit were closely monitored with goal to keep hemoglobin above 7. Prior to discharge hemoglobin 9.5 hematocrit 28.3. Renal parameters and electrolytes were closely monitored. Nephrotoxins were avoided. Magnesium and potassium were replaced. Supportive care provided. Bowel regimen instituted. Patient clinically stabilized and was ready [facility] of care. FINAL DIAGNOSES: Sepsis Pneumonia Acute on chronic hypoxemic respiratory failure, tracheostomy status Dilantin toxicity Altered mental status Anoxic encephalopathy syndrome Chronic encephalopathy Severe protein calorie malnutrition Anemia History of DVT Electrolyte abnormality/hypomagnesemia, hypokalemia DISCHARGE MEDICATIONS: List of medication was sent to accepting facility DISCHARGE INSTRUCTIONS: [facility] to [facility]. Follow up with medical doctor at the facility. I have been assigned to dictate discharge summary for this account. I was not involved in the patient's management. Salma Kerr NP May 26, 2019 08:55
== END 2019-05-25 20:13 | DRG 871 ==
LOC: EDBD 20:07 → EMR 20:39 → 2W 20:55 → EDBEDREQ 21:19 → ICU 23:53 → 2W 05-22 16:12
PROC: 5A1945Z Respiratory Ventilation, 24-96 Consecutive Hours (ICD-10-PCS; principal; 2019-05-20)
DX: A41.9 Sepsis, unspecified organism (principal); E43 Unspecified severe protein-calorie malnutrition; J18.9 Pneumonia, unspecified organism; J96.21 Acute and chronic respiratory failure with hypoxia; Z99.11 Dependence on respirator [ventilator] status; G93.1 Anoxic brain damage, not elsewhere classified; Z43.1 Encounter for attention to gastrostomy; Z43.0 Encounter for attention to tracheostomy; E83.42 Hypomagnesemia; D64.9 Anemia, unspecified; Z86.718 Personal history of other venous thrombosis and embolism; J44.9 Chronic obstructive pulmonary disease, unspecified; Z86.73 Personal history of transient ischemic attack (TIA), and cerebral infarction without residual deficits; G40.909 Epilepsy, unspecified, not intractable, without status epilepticus; E87.6 Hypokalemia; I10 Essential (primary) hypertension; Z88.6 Allergy status to analgesic agent; Z79.02 Long term (current) use of antithrombotics/antiplatelets; Z79.82 Long term (current) use of aspirin; R31.9 Hematuria, unspecified; T42.0X1A Poisoning by hydantoin derivatives, accidental (unintentional), initial encounter; G40.409 Other generalized epilepsy and epileptic syndromes, not intractable, without status epilepticus
CPT/HCPCS: 36415; 36600; 71045; 80048; 80053; 80185; 80202; 80299; 81003; 82248; 82550; 82553; 82803; 83605; 83690; 83735; 83880; 84100; 84484; 85025; 85610; 85730; 86850; 86900; 86901; 87040; 87070; 87081; 87181; 87205; 87324; 93005; 93970; 94002; 94003; 94664; 96365; 99291; J7030; J8499